=== PATIENT | male | born 1955 | race Two or more races ===

== ENCOUNTER 2019-07-19 10:24 | Inpatient (IN) | payer MEDICARE, OTHER ==
[~2019-07-19] VITALS: Ht 172.7 cm; Wt 95.5 kg
[~2019-07-19 10:24] MED LIST: COREG12.5 MG ORAL; FAMOTIDINE20 MG ORAL; NEPHROVITE1 TAB ORAL; NOVOLOG100 UNITS1 SUBQ
[2019-07-19 10:26] VITALS: BP 138/68
[2019-07-19] MEDS ORDERED: ASPIRIN81 MG ORAL (10:32)
[2019-07-19] MEDS ORDERED: DOCUSATE SODIU100 MG ORAL (10:32)
--- NOTE | 2019-07-19 10:34 | NUR ---
ED Nurse Note: Patient brought in by ambulance [facility] from [facility], patient missed dialysis yesterday 07/18/19, patient refused to go to dialysis center. patient is alert awake, his crutches at bedside, on NC 4L, right upper chest rachel cath for dialysis access. [place] [facility] [place]
[2019-07-19] MEDS ORDERED: HEPARIN SO5000 UNIT2 SUBQ (10:36)
[2019-07-19] MEDS ORDERED: NEPHROVITE1 TAB ORAL (10:36)
[2019-07-19] MEDS ORDERED: CATAPRES0.1 MG ORAL (10:39)
[2019-07-19] MEDS ORDERED: BENADRYL25 MG ORAL (10:39)
[2019-07-19] MEDS ORDERED: ZOFRAN ODT8 MG ORAL (10:39)
[2019-07-19] MEDS ORDERED: POLYETHYLENE GL17 GM ORAL (10:39)
[2019-07-19] MEDS ORDERED: EPOGEN3000 UNIT/ SUBQ (10:39)
--- NOTE | 2019-07-19 11:13 | NUR ---
ED Nurse Note: patient is a/o x3, blood sent to lab.
[2019-07-19 11:23] LABS: HEMATOCRIT 22.6 % (42.0-52.0); MEAN CORPUSCULAR VOLUME 98 FL (80-99); PLATELET COUNT 101 K/UL (150-450); RED CELL DISTRIBUTION WIDTH 18.9 % (11.6-14.8); WHITE BLOOD COUNT 5.4 K/UL (4.8-10.8)
[2019-07-19 11:38] LABS: ANION GAP 14 mmol/L (5-15); BLOOD UREA NITROGEN 111 mg/dL (7-18); CALCIUM 9.7 MG/DL (8.5-10.1); CARBON DIOXIDE 22 MMOL/L (21-32); CHLORIDE 102 MMOL/L (98-107); CREATININE 10.2 MG/DL (0.55-1.30); POTASSIUM 5.2 MMOL/L (3.5-5.1); SODIUM 138 MMOL/L (136-145)
[2019-07-19 11:43] LABS: ALANINE AMINOTRANSFERASE 102 U/L (12-78); ALBUMIN 2.9 G/DL (3.4-5.0); ALBUMIN/GLOBULIN RATIO 0.8 (1.0-2.7); ALKALINE PHOSPHATASE 308 U/L (46-116); ASPARTATE AMINO TRANSFERASE 49 U/L (15-37); BILIRUBIN,TOTAL 0.7 MG/DL (0.2-1.0)
--- NOTE | 2019-07-19 11:45 | Diagnostic Imaging Report ---
Indication: Dyspnea Comparison: 07/09/2019 A single view chest radiograph was obtained. Findings: Pulmonary vascular redistribution and interstitial edema demonstrated with cardiomegaly. There is a right permacath in good position. There is evidence of a right pleural effusion again demonstrated. Probable small left pleural effusion versus pleural thickening noted. IMPRESSION: Congestive heart failure. Suspected bilateral pleural effusions
--- NOTE | 2019-07-19 13:02 | Emergency Room Report ---
History of Present Illness General Chief Complaint: General Complaint Source: Patient, EMS Present Illness HPI Patient is a 63-year-old male brought in by basic ambulance after increased difficulty with breathing. Patient was noted to be normally dialyzed Tuesday and Tuesday but had missed dialysis yesterday. Patient was noted to be somewhat short of breath. Patient had refused dialysis apparently. patient is poorly cooperative and history is markedly limited by poor cooperation. Allergies: Coded Allergies: No Known Allergies (Unverified , 07/06/19) Patient History Past Medical History: see triage record Reviewed Nursing Documentation: PMH: Agreed; PSxH: Agreed Nursing Documentation-PMH Past Medical History: No History, Except For Hx Cardiac Problems: Yes - CHF, severe anemia Hx Hypertension: Yes Hx Diabetes: Yes Hx Cancer: No Hx Gastrointestinal Problems: Yes - GERD Hx Dialysis: Yes - (M, W, F) Hx Neurological Problems: No Review of Systems All Other Systems: limited Physical Exam Vital Signs Date Time Temp Pulse Resp B/P (MAP) Pulse Ox O2 Delivery O2 Flow Rate FiO2 07/19/19 10:26 98.6 66 16 138/68 99 Nasal Cannula 4.0 Sp02 EP Interpretation: reviewed, normal General Appearance: normal inspection, alert, Chronically Ill Head: atraumatic ENT: normal ENT inspection, hearing grossly normal, normal voice Neck: normal inspection, full range of motion, supple, no bony tend Respiratory: normal inspection, normal breath sounds, no respiratory distress, no retraction, no wheezing, crackles Cardiovascular #1: regular rate, rhythm, edema - trace Gastrointestinal: normal inspection, normal bowel sounds, non tender, soft, no guarding, no hernia Genitourinary: no CVA tenderness Musculoskeletal: normal inspection, back normal, normal range of motion Neurologic: normal inspection, alert, responsive, speech normal Psychiatric: normal inspection, judgement/insight normal, mood/affect normal Medical Decision Making Diagnostic Impression: Primary Impression: Hyperkalemia Additional Impressions: ESRD needing dialysis Pulmonary edema Pleural effusion, right ER Course Patient presented for missed dialysis. Differential diagnosis include was not limited to hyperkalemia, fluid overload, anemia among others. Because of complexity of patient's case laboratory tests and imaging studies were ordered. Patient was noted to have some history of dialysis noncompliance. Chest x- ray 1 view read by radiology showed bilateral small pleural effusions. Patient was also noted to have some hyperkalemia on laboratory testing as well as elevation of his BUN/creatinine. Patient was also anemic. This appears to be somewhat chronic. Dr. Geovany Roblero was contacted for inpatient management Laboratory Tests Test 07/19/19 11:07 White Blood Count 5.4 K/UL (4.8-10.8) Red Blood Count 2.30 M/UL (4.70-6.10) L Hemoglobin 7.0 G/DL (14.2-18.0) L Hematocrit 22.6 % (42.0-52.0) L Mean Corpuscular Volume 98 FL (80-99) Mean Corpuscular Hemoglobin 30.5 PG (27.0-31.0) Mean Corpuscular Hemoglobin Concent 31.1 G/DL (32.0-36.0) L Red Cell Distribution Width 18.9 % (11.6-14.8) H Platelet Count 101 K/UL (150-450) L Mean Platelet Volume 5.3 FL (6.5-10.1) L Neutrophils (%) (Auto) % (45.0-75.0) Lymphocytes (%) (Auto) % (20.0-45.0) Monocytes (%) (Auto) % (1.0-10.0) Eosinophils (%) (Auto) % (0.0-3.0) Basophils (%) (Auto) % (0.0-2.0) Differential Total Cells Counted 100 Neutrophils % (Manual) 57 % (45-75) Lymphocytes % (Manual) 17 % (20-45) L Monocytes % (Manual) 16 % (1-10) H Eosinophils % (Manual) 8 % (0-3) H Basophils % (Manual) 2 % (0-2) Band Neutrophils 0 % (0-8) Platelet Estimate Decreased L Platelet Morphology Normal Hypochromasia 3+ Anisocytosis 2+ Sodium Level 138 MMOL/L (136-145) Potassium Level 5.2 MMOL/L (3.5-5.1) H Chloride Level 102 MMOL/L (98-107) Carbon Dioxide Level 22 MMOL/L (21-32) Anion Gap 14 mmol/L (5-15) Blood Urea Nitrogen 111 mg/dL (7-18) H Creatinine 10.2 MG/DL (0.55-1.30) H Estimate Glomerular Filtration Rate 5.2 mL/min (>60) Glucose Level 125 MG/DL (74-106) H Calcium Level 9.7 MG/DL (8.5-10.1) Total Bilirubin 0.7 MG/DL (0.2-1.0) Aspartate Amino Transferase (AST) 49 U/L (15-37) H Alanine Aminotransferase (ALT) 102 U/L (12-78) H Alkaline Phosphatase 308 U/L (46-116) H Troponin I 0.201 ng/mL (0.000-0.056) Pro-B-Type Natriuretic Peptide > 52387 pg/mL (0-125) H Total Protein 6.6 G/DL (6.4-8.2) Albumin 2.9 G/DL (3.4-5.0) L Globulin 3.7 g/dL Albumin/Globulin Ratio 0.8 (1.0-2.7) L Lipase 129 U/L (73-393) Hemoglobin A1c Triglycerides Level Cholesterol Level LDL Cholesterol HDL Cholesterol Cholesterol/HDL Ratio Thyroid Stimulating Hormone (TSH) EKG Diagnostic Results Rate: normal Rhythm: NSR ST Segments: no acute changes Last Vital Signs Date Time Temp Pulse Resp B/P (MAP) Pulse Ox O2 Delivery O2 Flow Rate FiO2 07/19/19 11:09 66 16 Nasal Cannula 4.0 07/19/19 10:26 98.6 138/68 (91) 99 Status: unchanged Disposition: ADMITTED INPATIENT Condition: Serious Referrals: Geovany Roblero MD (PCP) Ino Loyola MD Jul 19, 2019 13:02
--- NOTE | 2019-07-19 13:06 | Consultation ---
History of Present Illness General Date patient seen: Jul 19, 2019 Chief Complaint: General Complaint Present Illness HPI 63 years old male with past medical history of end-stage renal disease, on hemodialysis, diabetes mellitus with gastroparesis and neuropathy, GERD, hypertension, noncompliance, was just sent to [facility] was brought in with CC of shortness of breath. He was refusing his HD at senior care facility. He is c/o skin rash as well. Allergies: Coded Allergies: No Known Allergies (Unverified , 07/06/19) Medication History Scheduled Aspirin* (Aspirin*), 81 MG ORAL DAILY, (Reported) Carvedilol (Coreg), 12.5 MG ORAL EVERY 12 HOURS Docusate Sodium* (Docusate Sodium*), 100 MG ORAL THREE TIMES A DAY, (Reported) Epoetin Garrett (Epogen), 3,000 UNIT SUBQ 3XW, (Reported) Famotidine (Famotidine), 20 MG ORAL DAILY Heparin Sod (Porcine) (Heparin Sodium*), 5,000 UNITS SUBQ EVERY 12 HOURS, ( Reported) Insulin Aspart (Novolog Flexpen), 0 UNITS SUBQ BEFORE MEALS AND HS Vitamin B Cmplx/Vit C/Folic AC (Nephro-Eduar Tablet), 1 TAB ORAL DAILY Vitamin B Cmplx/Vit C/Folic AC (Nephro-Eduar Tablet), 1 TAB ORAL DAILY, (Reported ) Scheduled PRN Clonidine Hcl* (Catapres*), 0.1 MG ORAL EVERY 4 HOURS PRN for For High Blood Pressure, (Reported) Diphenhydramine Hcl* (Benadryl*), 25 MG ORAL Q6H PRN for Itching, (Reported) Ondansetron Odt* (Zofran Odt*), 4 MG ORAL Q6H PRN for Nausea & Vomiting, ( Reported) Polyethylene Glycol 3350* (Polyethylene Glycol 3350*), 17 GM ORAL BEDTIME PRN for Constipation, (Reported) Patient History Healthcare decision maker Resuscitation status Advanced Directive on File Past Medical/Surgical History Past Medical/Surgical History: (1) ESRD needing dialysis (2) HTN (hypertension) (3) Pulmonary edema (4) Physical debility Review of Systems All Other Systems: negative except mentioned in HPI Physical Exam General Appearance: WD/WN Lines, tubes and drains: peripheral HEENT: normocephalic, atraumatic Neck: non-tender, normal alignment Respiratory/Chest: chest wall non-tender, lungs clear Breasts: no masses Cardiovascular/Chest: normal peripheral pulses Abdomen: normal bowel sounds Last 24 Hour Vital Signs Date Time Temp Pulse Resp B/P (MAP) Pulse Ox O2 Delivery O2 Flow Rate FiO2 07/19/19 11:09 66 16 Nasal Cannula 4.0 07/19/19 10:26 98.6 66 16 138/68 (91) 99 Room Air 07/19/19 10:26 98.6 66 16 138/68 99 Nasal Cannula 4.0 Laboratory Tests Test 07/19/19 11:07 White Blood Count 5.4 K/UL (4.8-10.8) Red Blood Count 2.30 M/UL (4.70-6.10) L Hemoglobin 7.0 G/DL (14.2-18.0) L Hematocrit 22.6 % (42.0-52.0) L Mean Corpuscular Volume 98 FL (80-99) Mean Corpuscular Hemoglobin 30.5 PG (27.0-31.0) Mean Corpuscular Hemoglobin Concent 31.1 G/DL (32.0-36.0) L Red Cell Distribution Width 18.9 % (11.6-14.8) H Platelet Count 101 K/UL (150-450) L Mean Platelet Volume 5.3 FL (6.5-10.1) L Neutrophils (%) (Auto) % (45.0-75.0) Lymphocytes (%) (Auto) % (20.0-45.0) Monocytes (%) (Auto) % (1.0-10.0) Eosinophils (%) (Auto) % (0.0-3.0) Basophils (%) (Auto) % (0.0-2.0) Differential Total Cells Counted 100 Neutrophils % (Manual) 57 % (45-75) Lymphocytes % (Manual) 17 % (20-45) L Monocytes % (Manual) 16 % (1-10) H Eosinophils % (Manual) 8 % (0-3) H Basophils % (Manual) 2 % (0-2) Band Neutrophils 0 % (0-8) Platelet Estimate Decreased L Platelet Morphology Normal Hypochromasia 3+ Anisocytosis 2+ Sodium Level 138 MMOL/L (136-145) Potassium Level 5.2 MMOL/L (3.5-5.1) H Chloride Level 102 MMOL/L (98-107) Carbon Dioxide Level 22 MMOL/L (21-32) Anion Gap 14 mmol/L (5-15) Blood Urea Nitrogen 111 mg/dL (7-18) H Creatinine 10.2 MG/DL (0.55-1.30) H Estimat Glomerular Filtration Rate 5.2 mL/min (>60) Glucose Level 125 MG/DL (74-106) H Calcium Level 9.7 MG/DL (8.5-10.1) Total Bilirubin 0.7 MG/DL (0.2-1.0) Aspartate Amino Transf (AST/SGOT) 49 U/L (15-37) H Alanine Aminotransferase (ALT/SGPT) 102 U/L (12-78) H Alkaline Phosphatase 308 U/L (46-116) H Troponin I 0.201 ng/mL (0.000-0.056) Total Protein 6.6 G/DL (6.4-8.2) Albumin 2.9 G/DL (3.4-5.0) L Globulin 3.7 g/dL Albumin/Globulin Ratio 0.8 (1.0-2.7) L Lipase 129 U/L (73-393) Height (Feet): 5 Height (Inches): 8.00 Weight (Pounds): 180 Medications Current Medications Medications (Trade) Dose Ordered Sig/Trav Route PRN Reason Start Time Stop Time Status Last Admin Dose Admin Aspirin (ASA) 81 mg DAILY ORAL 07/20/19 09:00 08/19/19 08:59 Carvedilol (Coreg) 12.5 mg EVERY 12 HOURS ORAL 07/19/19 21:00 08/18/19 20:59 Clonidine HCl (Catapres Tab) 0.1 mg EVERY 4 HOURS PRN ORAL For High Blood Pressure 07/19/19 13:15 08/18/19 13:14 UNV Famotidine (Pepcid) 20 mg DAILY ORAL 07/20/19 09:00 08/19/19 08:59 Vitamin B Complex/ Vit C/Folic Acid (Nephrovite) 1 tab DAILY ORAL 07/20/19 09:00 08/19/19 08:59 Assessment/Plan Problem List: (1) Pulmonary edema ICD Codes: J81.1 - Chronic pulmonary edema SNOMED: 76748846 (2) ESRD needing dialysis ICD Codes: N18.6 - End stage renal disease; Z99.2 - Dependence on renal dialysis SNOMED: 44043844 (3) Pleural effusion, right ICD Codes: J90 - Pleural effusion, not elsewhere classified SNOMED: 90871992 (4) Noncompliance with renal dialysis ICD Codes: Z91.15 - Patient's noncompliance with renal dialysis SNOMED: 602341037775611 (5) Hyperkalemia ICD Codes: E87.5 - Hyperkalemia SNOMED: 54711559 (6) Anemia ICD Codes: D64.9 - Anemia, unspecified SNOMED: 467569180 (7) Diabetes mellitus ICD Codes: E11.9 - Type 2 diabetes mellitus without complications SNOMED: 78033617 (8) HTN (hypertension) ICD Codes: I10 - Essential (primary) hypertension SNOMED: 64926106 (9) Physical debility ICD Codes: R53.81 - Other malaise SNOMED: 17824263 Assessment/Plan: HD by nephrology sliding scale symptomatic treatment pt.ot resume medication Christy Mercer MD Jul 19, 2019 13:06
[2019-07-19] MEDS ORDERED: Morphine Sulfate 2mg/ml Inj(IV/IM USE ONLY) IVP PRN (13:15)
[2019-07-19] MEDS ORDERED: Miralax 17gm pkt ORAL PRN (13:15)
[2019-07-19] MEDS ORDERED: Zolpidem 5mg tab ORAL PRN (13:15)
--- NOTE | 2019-07-19 13:24 | NUR ---
HAND-OFF: Report given to Dina HARDY. Endorsed all plan of care to Dina HARDY
[2019-07-19 13:27] VITALS: BP 132/62
--- NOTE | 2019-07-19 13:30 | NUR ---
ED Nurse Note: patient transferred to 2E with all of his belongings. endorsed to Herminia HARDY.
--- NOTE | 2019-07-19 16:00 | NUR ---
NURSE NOTES: Received patient from Gianna Bacon. patient is AAOx3. admitted from ER. transported via [place]. patient transfered to bed without difficulty. oriented to room. Safety precautions in place. siderailsX2 up bed locked to lowest position, call banks within patients reached. O2 at 2l/min via nasal cannula.VSS. no c/o pain or discomfort. Will follow.
--- NOTE | 2019-07-19 17:07 | History & Physical ---
History and Physical History & Physicial Dictated for Int Med- Dr Roblero no. [id number]. Kuldip Crisostomo MD Jul 19, 2019 17:07
--- NOTE | 2019-07-19 18:00 | NUR ---
NURSE NOTES: Call placed to Dr. Hutson regarding labs lesults. as per Dr. Mercer. Message left. awaiting callback. will follow.
[2019-07-19] MEDS: NovoLOG Insulin Flexpen SUBQ SCH ×2 (18:06→20:57)
--- NOTE | 2019-07-19 19:56 | NUR ---
HAND-OFF: Report given to Cailin Katz, aware awiting callback from Dr. Hutson.Plan of care endorsed.
--- NOTE | 2019-07-19 19:57 | NUR ---
NURSE NOTES: Received report from ANTONY Hill. Patient is awake, lying in semi purdy's; resting comfortably. A/Ox3-4. Denies pain at this time. No signs of acute cardiorespiratory distress noted. On Oxygen via NC @ 2 LPM. No or SOB noted. Permcath located at the right chest for hemodialysis and intact. Checked IV site and flushed. No erythema, bleeding or infiltration noted. Bed at lowest position, brakes on, siderails x3. Call light within reach. Will continue to monitor.
[2019-07-19 20:00] VITALS: BP 125/65
--- NOTE | 2019-07-19 20:15 | NUR ---
NURSE NOTES: Per Dr. Cota, no hemodialysis for tonight.
--- NOTE | 2019-07-19 20:20 | Cardiology Progress Note ---
Assessment/Plan Assessment/Plan misssdialysis sob chf Objective Last 24 Hour Vital Signs Date Time Temp Pulse Resp B/P (MAP) Pulse Ox O2 Delivery O2 Flow Rate FiO2 07/19/19 18:56 98.6 07/19/19 16:00 61 07/19/19 14:45 Nasal Cannula 2.0 07/19/19 13:45 60 07/19/19 13:30 98.6 62 16 132/62 99 Nasal Cannula 4.0 07/19/19 13:27 98.6 62 16 132/62 99 Nasal Cannula 4.0 07/19/19 11:09 66 16 Nasal Cannula 4.0 07/19/19 10:26 98.6 66 16 138/68 (91) 99 Room Air 07/19/19 10:26 98.6 66 16 138/68 99 Nasal Cannula 4.0 Laboratory Tests Test 07/19/19 11:07 White Blood Count 5.4 K/UL (4.8-10.8) Red Blood Count 2.30 M/UL (4.70-6.10) L Hemoglobin 7.0 G/DL (14.2-18.0) L Hematocrit 22.6 % (42.0-52.0) L Mean Corpuscular Volume 98 FL (80-99) Mean Corpuscular Hemoglobin 30.5 PG (27.0-31.0) Mean Corpuscular Hemoglobin Concent 31.1 G/DL (32.0-36.0) L Red Cell Distribution Width 18.9 % (11.6-14.8) H Platelet Count 101 K/UL (150-450) L Mean Platelet Volume 5.3 FL (6.5-10.1) L Neutrophils (%) (Auto) % (45.0-75.0) Lymphocytes (%) (Auto) % (20.0-45.0) Monocytes (%) (Auto) % (1.0-10.0) Eosinophils (%) (Auto) % (0.0-3.0) Basophils (%) (Auto) % (0.0-2.0) Differential Total Cells Counted 100 Neutrophils % (Manual) 57 % (45-75) Lymphocytes % (Manual) 17 % (20-45) L Monocytes % (Manual) 16 % (1-10) H Eosinophils % (Manual) 8 % (0-3) H Basophils % (Manual) 2 % (0-2) Band Neutrophils 0 % (0-8) Platelet Estimate Decreased L Platelet Morphology Normal Hypochromasia 3+ Anisocytosis 2+ Sodium Level 138 MMOL/L (136-145) Potassium Level 5.2 MMOL/L (3.5-5.1) H Chloride Level 102 MMOL/L (98-107) Carbon Dioxide Level 22 MMOL/L (21-32) Anion Gap 14 mmol/L (5-15) Blood Urea Nitrogen 111 mg/dL (7-18) H Creatinine 10.2 MG/DL (0.55-1.30) H Estimat Glomerular Filtration Rate 5.2 mL/min (>60) Glucose Level 125 MG/DL (74-106) H Calcium Level 9.7 MG/DL (8.5-10.1) Total Bilirubin 0.7 MG/DL (0.2-1.0) Aspartate Amino Transf (AST/SGOT) 49 U/L (15-37) H Alanine Aminotransferase (ALT/SGPT) 102 U/L (12-78) H Alkaline Phosphatase 308 U/L (46-116) H Troponin I 0.201 ng/mL (0.000-0.056) Pro-B-Type Natriuretic Peptide > 33221 pg/mL (0-125) H Total Protein 6.6 G/DL (6.4-8.2) Albumin 2.9 G/DL (3.4-5.0) L Globulin 3.7 g/dL Albumin/Globulin Ratio 0.8 (1.0-2.7) L Lipase 129 U/L (73-393) Microbiology Date/Time Source Procedure Growth Status 07/19/19 13:02 Rectum Received Nikko Resendiz MD Jul 19, 2019 20:20
--- NOTE | 2019-07-19 20:30 | History and Physical Report ---
DATE OF ADMISSION: 07/19/2019 CHIEF COMPLAINT: The patient is a 63-year-old male, who presents with a chief complaint of shortness of breath. HISTORY OF PRESENT ILLNESS: The patient was admitted to [facility] from July 06, 2019 to July 17, 2019. The patient has been noncompliant with his hemodialysis at that time. The patient is admitted with acute exacerbation of congestive heart failure secondary to volume overload. Please see history and physical and discharge summary dictated at that time. The patient is a resident of [facility]. The patient missed his dialysis on Thursday, July 18, 2019 for unknown reasons. The patient then began to experience shortness of breath. The patient was transferred to [facility]. The patient is admitted for dyspnea secondary to volume overload secondary to missed dialysis. REVIEW OF SYSTEMS: CONSTITUTIONAL: The patient denies weight loss or weight gain. The patient denies fevers or chills. HEENT: The patient denies ear or throat pain. The patient denies headache. CARDIOVASCULAR: The patient denies palpitation or chest pain. CHEST: The patient denies wheeze or shortness of breath. CHEST: The patient complains of shortness of breath as above. The patient denies wheezes. ABDOMEN: The patient denies nausea, vomiting, diarrhea, or constipation. GENITOURINARY: The patient denies dysuria or increased frequency of urination. NEUROMUSCULAR: The patient denies seizures or generalized weakness. PAST MEDICAL HISTORY: Significant for: 1. Congestive heart failure as above. 2. End-stage renal disease. 3. Diabetes type 2. 4. Diabetic gastroparesis. 5. Diabetic neuropathy. 6. Gastroesophageal reflux disease. 7. Hypertension. 8. Jzepwbfe-fi-noaqiw mitral valve regurgitation. 9. Fcwxguzz-dr-ebegkx tricuspid regurgitation. 10. Pulmonary hypertension. 11. Anemia of chronic renal disease. PAST SURGICAL HISTORY: Significant for hemodialysis catheter placement. CURRENT MEDICATIONS: 1. Aspirin 81 mg one tablet p.o. daily. 2. Carvedilol 12.5 mg p.o. twice daily. 3. Clonidine 0.1 mg p.o. q.4 hours p.r.n. 4. Erythropoietin 3000 units subcutaneously 3 times weekly. 5. Pepcid 20 mg p.o. daily. 6. Insulin NovoLog sliding scale. 7. Zofran 4 mg p.o. q.6 hours p.r.n. 8. MiraLAX 17 g p.o. at bedtime p.r.n. 9. Vitamin B complex. ALLERGIES: No known drug allergies. SOCIAL HISTORY: The patient is and is currently a resident of [facility]. The patient denies tobacco or alcohol use. PHYSICAL EXAMINATION: VITAL SIGNS: Temperature 98.6, respirations 16, pulse 66, and blood pressure 138/60. GENERAL: The patient is a well-developed and well-nourished male, in no apparent distress. HEENT: Eyes, pupils are equal and responsive to light and accommodation. Extraocular movements are intact. NECK: Supple without lymphadenopathy. CHEST: Lungs are clear to auscultation bilaterally without wheezes or rales. CARDIOVASCULAR: Regular rhythm and rate. S1 and S2 are normal without murmurs, rubs, or gallops. ABDOMEN: Soft, nontender, and nondistended. Positive bowel sounds. No evidence of hepatosplenomegaly. Currently, no rebound or guarding noted. EXTREMITIES: Negative for clubbing, cyanosis, or edema. RECTAL/GENITAL: Refused. NEUROLOGIC: Cranial nerves II through XII are grossly intact without focal deficits. Motor strength is 5/5 bilaterally. Deep tendon reflexes are 2+ plantar. LABORATORY STUDIES: WBC 5.4, hemoglobin 7.0, hematocrit 22.6, and platelets 101,000. Sodium 138, potassium 5.2, chloride 102, CO2 22, BUN 111, creatinine 10.2, and glucose 125. AST 49, ALT 102, and alkaline phosphatase 308,000. Troponin 0.2. A BNP is pending. Chest x-ray revealed pulmonary vascular redistribution and interstitial edema consistent with congestive heart failure. ASSESSMENT: This is a 63-year-old male. 1. Dyspnea. 2. Congestive heart failure. 3. End-stage renal disease. 4. Diabetes type 2. 5. Diabetic gastroparesis. 6. Diabetic neuropathy. 7. Gastroesophageal reflux disease. 8. Hypertension. 9. Tdncqskd-en-cgnygp mitral valve regurgitation. 10. Qcmsfmzh-hs-yvabzo tricuspid valve regurgitation. 11. Pulmonary hypertension. 12. Anemia of chronic renal disease. TREATMENT: 1. Dyspnea. A Pulmonary consultation has been obtained with Dr. Christy Mercer. We will follow recommendations of Pulmonary. Dyspnea is probably secondary to volume overload. We will follow recommendations of Pulmonary. 2. Congestive heart failure. This is probably secondary to volume overload. A Cardiology consultation is pending with Dr. Nikko Resendiz. Serial troponin levels will be performed. Serial BNPs will be performed. 3. Diabetes type 2. NovoLog sliding scale has been instituted. 4. Diabetic gastroparesis. 5. Diabetic neuropathy. 6. Gastroesophageal reflux disease. Continue Pepcid as above. 7. Hypertension. Continue clonidine and carvedilol as above. 8. Prfwcihh-vz-vvwyye mitral valve regurgitation. 9. Vtxevwzp-pq-mjlqbb tricuspid valve regurgitation. 10. Pulmonary hypertension. 11. Anemia of chronic renal disease. Kuldip Crisostomo M.D. DR: GRACE JOB#: [id number] CC:
[2019-07-19] MEDS: Carvedilol 12.5mg tab ORAL SCH (20:55)
[2019-07-19] MEDS: Heparin 5000 units/ml inj SUBQ SCH (20:58)
[2019-07-20] VITALS: BP 130/76
--- NOTE | 2019-07-20 03:22 | NUR ---
NURSE NOTES: Resting throughout the night. No significant change of condition noted. Will continue to monitor.
--- NOTE | 2019-07-20 03:30 | NUR ---
NURSE NOTES: Called [facility] and spoked with Martha, to schedule for hemodialysis 07/20/2019. Awaiting for callback.
[2019-07-20 04:00] VITALS: BP 133/81
[2019-07-20] MEDS: NovoLOG Insulin Flexpen SUBQ SCH ×4 (06:19→21:15)
[2019-07-20 07:16] LABS: HEMATOCRIT 24.3 % (42.0-52.0); HEMOGLOBIN 7.7 G/DL (14.2-18.0); MEAN CORPUSCULAR VOLUME 98 FL (80-99); PLATELET COUNT 113 K/UL (150-450); RED BLOOD COUNT 2.48 M/UL (4.70-6.10); WHITE BLOOD COUNT 5.5 K/UL (4.8-10.8)
[2019-07-20 07:23] LABS: ALANINE AMINOTRANSFERASE 106 U/L (12-78); ALBUMIN 3.1 G/DL (3.4-5.0); ALBUMIN/GLOBULIN RATIO 0.8 (1.0-2.7); ALKALINE PHOSPHATASE 336 U/L (46-116); ANION GAP 15 mmol/L (5-15); ASPARTATE AMINO TRANSFERASE 56 U/L (15-37); BILIRUBIN,TOTAL 0.7 MG/DL (0.2-1.0); BLOOD UREA NITROGEN 117 mg/dL (7-18); CARBON DIOXIDE 22 MMOL/L (21-32); CHLORIDE 101 MMOL/L (98-107); CHOLESTEROL 138 MG/DL (< 200); CREATININE 10.6 MG/DL (0.55-1.30); HDL CHOLESTEROL 62 MG/DL (40-60); POTASSIUM 5.7 MMOL/L (3.5-5.1); SODIUM 138 MMOL/L (136-145); TRIGLYCERIDES 46 MG/DL (30-150)
--- NOTE | 2019-07-20 07:25 | NUR ---
HAND-OFF: Report given to ANTONY Hill. Plan of care endorsed.
--- NOTE | 2019-07-20 07:27 | NUR ---
NURSE NOTES: Received patient From Gianna Simeon. patient is awake lying comfortably in bed. Denies pain or discomfort. Reminded patient of safety precautions. side rails X2 up for safety, bed locked to lowest position. bed alarm activated. call banks within patients reached. patient for HD this morning as per Dr. Hutson's order. Will anticipate needs and continue to monitor patient throughout this shift.
[2019-07-20 08:00] VITALS: BP 142/77
[2019-07-20] MEDS: Nephrovite tab (Rena-Vite) ORAL SCH (08:45)
[2019-07-20] MEDS: Aspirin Baby 81mg ORAL SCH (08:46)
[2019-07-20] MEDS: Heparin Sod 1000 units/ml 10ml IV ONE (08:53)
[2019-07-20] MEDS: Carvedilol 12.5mg tab ORAL SCH ×2 (08:53→21:14)
[2019-07-20] MEDS: Heparin 5000 units/ml inj SUBQ SCH ×2 (08:59→21:00)
--- NOTE | 2019-07-20 11:00 | NUR ---
Received order for discharge from Dr. Workman. Medications faxed to [place] [facility] and delivered to floor. Pts sister notified re: discharge. 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 will follow. Addendum: 07/20/19 at 1143 by Liz Wall RN Wrong patient. please ignore documentation above.
--- NOTE | 2019-07-20 11:56 | Pulmonology Progress Note ---
Assessment/Plan Problems: (1) Pulmonary edema (2) ESRD needing dialysis (3) Pleural effusion, right (4) Noncompliance with renal dialysis (5) Hyperkalemia (6) Anemia (7) Diabetes mellitus (8) HTN (hypertension) (9) Physical debility Assessment/Plan HD by nephrology sliding scale symptomatic treatment pt.ot resume medication add Ivermectin and Elimite Subjective ROS Limited/Unobtainable: No Constitutional: Reports: no symptoms HEENT: Repors: no symptoms Allergies: Coded Allergies: No Known Allergies (Unverified , 07/06/19) Objective Last 24 Hour Vital Signs Date Time Temp Pulse Resp B/P (MAP) Pulse Ox O2 Delivery O2 Flow Rate FiO2 07/20/19 09:00 Nasal Cannula 2.0 07/20/19 08:53 66 142/77 07/20/19 08:00 98.3 66 24 142/77 (98) 97 07/20/19 08:00 65 07/20/19 07:45 98 Nasal Cannula 2.0 28 07/20/19 07:45 66 20 98 Nasal Cannula 2.0 28 07/20/19 04:00 96.9 61 18 133/81 (98) 98 07/20/19 04:00 63 07/20/19 00:00 97.2 78 18 130/76 (94) 96 07/20/19 00:00 56 07/19/19 21:00 Nasal Cannula 2.0 07/19/19 21:00 Nasal Cannula 2.0 07/19/19 20:55 64 125/65 07/19/19 20:00 97.9 64 20 125/65 (85) 95 07/19/19 20:00 61 07/19/19 18:56 98.6 07/19/19 16:00 61 07/19/19 14:45 Nasal Cannula 2.0 07/19/19 13:45 60 07/19/19 13:30 98.6 62 16 132/62 99 Nasal Cannula 4.0 07/19/19 13:27 98.6 62 16 132/62 99 Nasal Cannula 4.0 Intake and Output 07/19/19 07/20/19 18:59 06:59 Intake Total 60 ml Output Total 0 ml Balance 0 ml 60 ml Intake Oral 60 ml Output Urine Total 0 ml # Voids 1 # Bowel Movements 1 3 General Appearance: WD/WN HEENT: normocephalic, atraumatic Respiratory/Chest: chest wall non-tender, lungs clear Cardiovascular: normal peripheral pulses, normal rate Abdomen: normal bowel sounds, soft, non tender, no organomegaly Genitourinary: normal external genitalia Neurologic/Psychiatric: elder assistant II-XII grossly normal Microbiology Date/Time Source Procedure Growth Status 07/19/19 13:02 Rectum Received Laboratory Tests 07/20/19 05:45: White Blood Count 5.5, Red Blood Count 2.48L, Hemoglobin 7.7L, Hematocrit 24.3L , Mean Corpuscular Volume 98, Mean Corpuscular Hemoglobin 31.2H, Mean Corpuscular Hemoglobin Concent 31.8L, Red Cell Distribution Width 17.0H, Platelet Count 113L, Mean Platelet Volume 5.7L, Neutrophils (%) (Auto) , Lymphocytes (%) (Auto) , Monocytes (%) (Auto) , Eosinophils (%) (Auto) , Basophils (%) (Auto) , Differential Total Cells Counted 100, Neutrophils % ( Manual) 49, Lymphocytes % (Manual) 32, Monocytes % (Manual) 6, Eosinophils % ( Manual) 13H, Basophils % (Manual) 0, Band Neutrophils 0, Platelet Estimate DecreasedL, Platelet Morphology Normal, Hypochromasia 1+, Anisocytosis 1+, Sodium Level 138, Potassium Level 5.7H, Chloride Level 101, Carbon Dioxide Level 22, Anion Gap 15, Blood Urea Nitrogen 117H, Creatinine 10.6H, Estimat Glomerular Filtration Rate 5.0, Glucose Level 136H, Hemoglobin A1c 5.1, Calcium Level 10.0, Total Bilirubin 0.7, Aspartate Amino Transf (AST/SGOT) 56H, Alanine Aminotransferase (ALT/SGPT) 106H, Alkaline Phosphatase 336H, Troponin I 0.149H, Pro-B-Type Natriuretic Peptide 705H, Total Protein 7.1, Albumin 3.1L, Globulin 4.0, Albumin/Globulin Ratio 0.8L, Triglycerides Level 46, Cholesterol Level 138 , LDL Cholesterol 59, HDL Cholesterol 62H, Cholesterol/HDL Ratio 2.2L, Thyroid Stimulating Hormone (TSH) 3.499 Current Medications Medications (Trade) Dose Ordered Sig/Trav Route PRN Reason Start Time Stop Time Status Last Admin Dose Admin Acetaminophen (Tylenol) 650 mg Q4H PRN ORAL fever 07/19/19 13:15 08/18/19 13:14 07/19/19 18:26 Albuterol/ Ipratropium (Albuterol/ Ipratropium) 3 ml Q6HRT PRN HHN dyspnea 07/19/19 13:15 07/24/19 13:14 Aspirin (ASA) 81 mg DAILY ORAL 07/20/19 09:00 08/19/19 08:59 07/20/19 08:46 Carvedilol (Coreg) 12.5 mg EVERY 12 HOURS ORAL 07/19/19 21:00 08/18/19 20:59 07/19/19 20:55 Clonidine HCl (Catapres Tab) 0.1 mg Q4H PRN ORAL SBP>160 07/19/19 13:15 08/18/19 13:14 Dextrose (Dextrose 50%) 25 ml Q30M PRN IV Hypoglycemia 07/19/19 13:15 08/18/19 13:14 Dextrose (Dextrose 50%) 50 ml Q30M PRN IV Hypoglycemia 07/19/19 13:15 08/18/19 13:14 Famotidine (Pepcid) 20 mg DAILY ORAL 07/20/19 09:00 08/19/19 08:59 07/20/19 08:46 Furosemide (Lasix) 100 mg Q8H PRN IV dyspnea 07/19/19 13:15 08/18/19 13:14 Heparin Sodium (Porcine) (Heparin 5000 units/ml) 5,000 units EVERY 12 HOURS SUBQ 07/19/19 21:00 08/18/19 20:59 Heparin Sodium (Porcine) (Heparin Sod 1000 units/ml 10ml) 2,000 unit ONCE ONCE IV 07/21/19 00:45 07/21/19 00:46 Heparin Sodium (Porcine) (Heparin) 1,000 unit POSTHD INJ 07/21/19 09:00 08/20/19 08:59 Insulin Aspart (NovoLOG) BEFORE MEALS AND HS SUBQ 07/19/19 16:30 08/18/19 16:29 07/20/19 06:19 Ivermectin (Stromectol) 15 mg ONCE ONCE ORAL 07/20/19 11:30 07/20/19 11:31 UNV Morphine Sulfate (Morphine Sulfate) 1 mg Q4H PRN IVP For Pain 07/19/19 13:15 07/26/19 13:14 Ondansetron HCl (Zofran) 4 mg Q6H PRN IVP Nausea & Vomiting 07/19/19 13:15 08/18/19 13:14 Permethrin (Elimite) 1 applic ONCE ONCE TOPIC 07/20/19 11:30 07/20/19 11:31 UNV Permethrin (Elimite) 1 applic ONCE ONCE TOPIC 07/20/19 11:30 07/20/19 11:31 UNV Polyethylene Glycol (Miralax) 17 gm HSPRN PRN ORAL Constipation 07/19/19 13:15 08/18/19 13:14 Sodium Chloride 1,000 ml @ 500 mls/hr Q2H PRN IVLG sbp<90 during hd 07/21/19 00:45 08/20/19 00:44 Vitamin B Complex/ Vit C/Folic Acid (Nephrovite) 1 tab DAILY ORAL 07/20/19 09:00 08/19/19 08:59 07/20/19 08:45 Zolpidem Tartrate (Ambien) 5 mg HSPRN PRN ORAL Insomnia 07/19/19 13:15 07/26/19 13:14 Christy Mercer MD Jul 20, 2019 11:56
--- NOTE | 2019-07-20 11:59 | Internal Med Progress Note ---
Subjective Physician Name Geovany Roblero Attending Physician Geovany Roblero MD Current Medications Medications (Trade) Dose Ordered Sig/Trav Route PRN Reason Start Time Stop Time Status Last Admin Dose Admin Acetaminophen (Tylenol) 650 mg Q4H PRN ORAL fever 07/19/19 13:15 08/18/19 13:14 07/19/19 18:26 Albuterol/ Ipratropium (Albuterol/ Ipratropium) 3 ml Q6HRT PRN HHN dyspnea 07/19/19 13:15 07/24/19 13:14 Aspirin (ASA) 81 mg DAILY ORAL 07/20/19 09:00 08/19/19 08:59 07/20/19 08:46 Carvedilol (Coreg) 12.5 mg EVERY 12 HOURS ORAL 07/19/19 21:00 08/18/19 20:59 07/19/19 20:55 Clonidine HCl (Catapres Tab) 0.1 mg Q4H PRN ORAL SBP>160 07/19/19 13:15 08/18/19 13:14 Dextrose (Dextrose 50%) 25 ml Q30M PRN IV Hypoglycemia 07/19/19 13:15 08/18/19 13:14 Dextrose (Dextrose 50%) 50 ml Q30M PRN IV Hypoglycemia 07/19/19 13:15 08/18/19 13:14 Famotidine (Pepcid) 20 mg DAILY ORAL 07/20/19 09:00 08/19/19 08:59 07/20/19 08:46 Furosemide (Lasix) 100 mg Q8H PRN IV dyspnea 07/19/19 13:15 08/18/19 13:14 Heparin Sodium (Porcine) (Heparin 5000 units/ml) 5,000 units EVERY 12 HOURS SUBQ 07/19/19 21:00 08/18/19 20:59 Heparin Sodium (Porcine) (Heparin Sod 1000 units/ml 10ml) 2,000 unit ONCE ONCE IV 07/21/19 00:45 07/21/19 00:46 Heparin Sodium (Porcine) (Heparin) 1,000 unit POSTHD INJ 07/21/19 09:00 08/20/19 08:59 Insulin Aspart (NovoLOG) BEFORE MEALS AND HS SUBQ 07/19/19 16:30 08/18/19 16:29 07/20/19 06:19 Ivermectin (Stromectol) 15 mg ONCE ONCE ORAL 07/20/19 11:30 07/20/19 11:31 UNV Morphine Sulfate (Morphine Sulfate) 1 mg Q4H PRN IVP For Pain 07/19/19 13:15 07/26/19 13:14 Ondansetron HCl (Zofran) 4 mg Q6H PRN IVP Nausea & Vomiting 07/19/19 13:15 08/18/19 13:14 Permethrin (Elimite) 1 applic ONCE ONCE TOPIC 07/20/19 11:30 07/20/19 11:31 UNV Permethrin (Elimite) 1 applic ONCE ONCE TOPIC 07/20/19 11:30 07/20/19 11:31 UNV Polyethylene Glycol (Miralax) 17 gm HSPRN PRN ORAL Constipation 07/19/19 13:15 08/18/19 13:14 Sodium Chloride 1,000 ml @ 500 mls/hr Q2H PRN IVLG sbp<90 during hd 07/21/19 00:45 08/20/19 00:44 Vitamin B Complex/ Vit C/Folic Acid (Nephrovite) 1 tab DAILY ORAL 07/20/19 09:00 08/19/19 08:59 07/20/19 08:45 Zolpidem Tartrate (Ambien) 5 mg HSPRN PRN ORAL Insomnia 07/19/19 13:15 07/26/19 13:14 Allergies: Coded Allergies: No Known Allergies (Unverified , 07/06/19) Subjective awake, alert, responsive, less SOB, No chest pain , C/O rash and generalized body itching Objective Last Vital Signs Date Time Temp Pulse Resp B/P (MAP) Pulse Ox O2 Delivery O2 Flow Rate FiO2 07/20/19 09:00 Nasal Cannula 2.0 07/20/19 08:53 66 142/77 07/20/19 08:00 98.3 24 97 07/20/19 07:45 28 Laboratory Tests Test 07/20/19 05:45 White Blood Count 5.5 K/UL (4.8-10.8) Red Blood Count 2.48 M/UL (4.70-6.10) L Hemoglobin 7.7 G/DL (14.2-18.0) L Hematocrit 24.3 % (42.0-52.0) L Mean Corpuscular Volume 98 FL (80-99) Mean Corpuscular Hemoglobin 31.2 PG (27.0-31.0) H Mean Corpuscular Hemoglobin Concent 31.8 G/DL (32.0-36.0) L Red Cell Distribution Width 17.0 % (11.6-14.8) H Platelet Count 113 K/UL (150-450) L Mean Platelet Volume 5.7 FL (6.5-10.1) L Neutrophils (%) (Auto) % (45.0-75.0) Lymphocytes (%) (Auto) % (20.0-45.0) Monocytes (%) (Auto) % (1.0-10.0) Eosinophils (%) (Auto) % (0.0-3.0) Basophils (%) (Auto) % (0.0-2.0) Differential Total Cells Counted 100 Neutrophils % (Manual) 49 % (45-75) Lymphocytes % (Manual) 32 % (20-45) Monocytes % (Manual) 6 % (1-10) Eosinophils % (Manual) 13 % (0-3) H Basophils % (Manual) 0 % (0-2) Band Neutrophils 0 % (0-8) Platelet Estimate Decreased L Platelet Morphology Normal Hypochromasia 1+ Anisocytosis 1+ Sodium Level 138 MMOL/L (136-145) Potassium Level 5.7 MMOL/L (3.5-5.1) H Chloride Level 101 MMOL/L (98-107) Carbon Dioxide Level 22 MMOL/L (21-32) Anion Gap 15 mmol/L (5-15) Blood Urea Nitrogen 117 mg/dL (7-18) H Creatinine 10.6 MG/DL (0.55-1.30) H Estimat Glomerular Filtration Rate 5.0 mL/min (>60) Glucose Level 136 MG/DL (74-106) H Hemoglobin A1c 5.1 % (4.3-6.0) Calcium Level 10.0 MG/DL (8.5-10.1) Total Bilirubin 0.7 MG/DL (0.2-1.0) Aspartate Amino Transf (AST/SGOT) 56 U/L (15-37) H Alanine Aminotransferase (ALT/SGPT) 106 U/L (12-78) H Alkaline Phosphatase 336 U/L (46-116) H Troponin I 0.149 ng/mL (0.000-0.056) Pro-B-Type Natriuretic Peptide 705 pg/mL (0-125) H Total Protein 7.1 G/DL (6.4-8.2) Albumin 3.1 G/DL (3.4-5.0) L Globulin 4.0 g/dL Albumin/Globulin Ratio 0.8 (1.0-2.7) L Triglycerides Level 46 MG/DL (30-150) Cholesterol Level 138 MG/DL (< 200) LDL Cholesterol 59 mg/dL (<100) HDL Cholesterol 62 MG/DL (40-60) H Cholesterol/HDL Ratio 2.2 (3.3-4.4) L Thyroid Stimulating Hormone (TSH) 3.499 uiU/mL (0.358-3.740) Microbiology Date/Time Source Procedure Growth Status 07/19/19 13:02 Rectum Received Intake and Output 07/19/19 07/20/19 18:59 06:59 Intake Total 60 ml Output Total 0 ml Balance 0 ml 60 ml Intake Oral 60 ml Output Urine Total 0 ml # Voids 1 # Bowel Movements 1 3 Objective General: No acute distress, awake and alert HEENT: NCAT, sclera anicteric, PERRL, EOMI. Neck: Supple, no significant jugular venous distention, Lungs: Fair inspiratory effort, decrease breath sound on bases, no Wheeze or Rales. Chest Wall: Dialysis cath on Right chest wall. Heart: Regular rate and rhythm, normal S1/S2, no murmur. Abdomen: soft, nontender, nondistended. Normoactive bowel sounds. / Rectal: Refused and deferred. Extremities: No Cyanosis , clubbing or edema. Neuro: A&O x 3, Able to move all extremities Skin: warm, generalized dry skin with rash. Psych: Normal mood and affect Assessment/Plan Assessment/Plan 1. Dyspnea most likely due to fluid overload. 2. Congestive heart failure. 3. End-stage renal disease on hemodialysis. 4. Diabetes type 2. 5. Diabetic gastroparesis. 6. Diabetic neuropathy. 7. Gastroesophageal reflux disease. 8. Hypertension. 9. Yoclgynf-bq-bksqql mitral valve regurgitation. 10. Mfuehyom-ir-aemqxq tricuspid valve regurgitation. 11. Pulmonary hypertension. 12. Anemia of chronic renal disease. 13. rash possible scabies. TREATMENT: 1. Dyspnea. A Pulmonary consultation has been obtained with Dr. Christy Mercer. We will follow recommendations of Pulmonary. Dyspnea is probably secondary to volume overload. We will follow recommendations of Pulmonary. 2. Congestive heart failure. This is probably secondary to volume overload. A Cardiology consultation is pending with Dr. Nikko Resendiz. Serial troponin levels will be performed. Serial BNPs will be performed. 3. Diabetes type 2. NovoLog sliding scale has been instituted. 4. Diabetic gastroparesis. 5. Diabetic neuropathy. 6. Gastroesophageal reflux disease. Continue Pepcid as above. 7. Hypertension. Continue clonidine and carvedilol as above. 8. Onnvzjuy-ma-zoruzi mitral valve regurgitation. 9. Fdrrtztp-zx-cnbjfn tricuspid valve regurgitation. 10. Pulmonary hypertension. 11. Anemia of chronic renal disease. Hemodialysis at bedside now. start Elimite shampoo monitor labs. Geovany Roblero MD Jul 20, 2019 11:59
[2019-07-20 12:00] VITALS: BP 148/69
--- NOTE | 2019-07-20 12:01 | Consultation ---
Consult Note Assessment/Plan Renal consult dictated # [id number] Justin Hutson MD Jul 20, 2019 12:01
--- NOTE | 2019-07-20 13:03 | NUR ---
NURSE NOTES: Patient s/p HD 3L out. Patient tolerated dialys. VSS. will follow.
--- NOTE | 2019-07-20 14:00 | NUR ---
NURSE NOTES: Patient complaining of itching noted with multiple rows of pimple like rashes. seen and examined by Dr. Mercer and Dr. Roblero. Patient diagnose with scabies. patient placed on isolation precautions. Isomite cream applied as ordered by MD. will monitor patient.
--- NOTE | 2019-07-20 16:00 | Consultation ---
DATE OF CONSULTATION: 07/20/2019 NEPHROLOGY CONSULTATION CONSULTING PHYSICIAN: Justin Hutson M.D. REFERRING PHYSICIAN: Geovany Roblero M.D. and Kuldip Crisostomo M.D. REASON FOR CONSULTATION: End-stage renal disease, requiring hemodialysis. HISTORY OF PRESENT ILLNESS: This is a 63-year-old, male, who is known to me from a recent admission to [facility]. The patient was admitted then for fluid overload. He had missed dialysis. He was placed on a custodial facility and arrangement was made to be dialyzed at [facility], however, last Tuesday he did not go to dialysis. He was admitted yesterday for itching and possibility of scabies. PAST MEDICAL HISTORY: Includes diabetes, gastroparesis, neuropathy, gastroesophageal reflux disease, and hypertension. MEDICATIONS: Reviewed in the EMR. SOCIAL HISTORY: The patient lives in [facility] currently. No history of smoking or alcohol abuse. ALLERGIES: No known drug allergies. REVIEW OF SYSTEMS: Also some reported shortness of breath yesterday, although he denies it now. PHYSICAL EXAMINATION: GENERAL: The patient is a 63-year-old male, in no acute distress. VITAL SIGNS: Blood pressure 142/77, pulse 66, and temperature 98.3. HEENT: [place] conjunctivae. Anicteric sclerae. NECK: Supple. LUNGS: Bilateral rhonchi. CHEST: The patient has right-sided PermCath. ABDOMEN: Soft and nontender. EXTREMITIES: Bilateral pedal edema. SKIN: The patient has a scratch markings on his arms. LABORATORY FINDINGS: The CBC shows WBC of 5500, hematocrit 24.3, hemoglobin 7.7, and platelets 113,000. Chemistry panel shows a serum sodium 138, potassium 5.7, chloride 101, CO2 22, BUN 117, and creatinine 10.6. ASSESSMENT: This is a 63-year-old male with a history of end-stage renal disease, noncompliant with dialysis, who presents now with some reported shortness of breath. He has a scratch markings under skin possibility of scabies. He is also anemic, mostly from chronic kidney disease. His hypertension is controlled. PLAN: The patient is being dialyzed at this point. Labs will be followed and adjustments will be made. Case was discussed with Dr. Roblero, also with the RN. I advised the patient to be compliant with his dialysis. Thank you very much, Dr. Roblero, for this consultation. Justin Hutson M.D. DR: ASIM JOB#: [id number] CC:
--- NOTE | 2019-07-20 19:00 | Cardiology Progress Note ---
Assessment/Plan Assessment/Plan chf systolic cardiomyopathy hypertension, ype 2 diabetes, and nd-stage renal disease on hemodialysis hyperkalemia, severe anemia dialysis non compliance MR/TR ? scabies refused stress test last time trop min abn of ? sig in light of renal insuf poor compliance makes difficult to treat effectively coreg ecotrin statin for now in light of poor dialysis complaince i do not feel safe puttting him on acei isordil adn hydralazien combo for cm Subjective Cardiovascular: Denies: chest pain, lightheadedness, palpitations Respiratory: Denies: shortness of breath Gastrointestinal/Abdominal: Denies: abdominal pain Genitourinary: Denies: burning Objective Last 24 Hour Vital Signs Date Time Temp Pulse Resp B/P (MAP) Pulse Ox O2 Delivery O2 Flow Rate FiO2 07/20/19 16:00 75 07/20/19 12:00 98.0 70 24 148/69 (95) 97 07/20/19 12:00 71 07/20/19 09:00 Nasal Cannula 2.0 07/20/19 08:53 66 142/77 07/20/19 08:00 98.3 66 24 142/77 (98) 97 07/20/19 08:00 65 07/20/19 07:45 98 Nasal Cannula 2.0 28 07/20/19 07:45 66 20 98 Nasal Cannula 2.0 28 07/20/19 04:00 96.9 61 18 133/81 (98) 98 07/20/19 04:00 63 07/20/19 00:00 97.2 78 18 130/76 (94) 96 07/20/19 00:00 56 07/19/19 21:00 Nasal Cannula 2.0 07/19/19 21:00 Nasal Cannula 2.0 07/19/19 20:55 64 125/65 07/19/19 20:00 97.9 64 20 125/65 (85) 95 07/19/19 20:00 61 General Appearance: no apparent distress, alert, patient on isolation Neck: supple Cardiovascular: normal rate Respiratory/Chest: lungs clear - ant Abdomen: normal bowel sounds, non tender, soft Extremities: no swelling Intake and Output 07/19/19 07/20/19 19:00 07:00 Intake Total 60 ml Output Total 0 ml Balance 0 ml 60 ml Intake Oral 60 ml Output Urine Total 0 ml # Voids 1 # Bowel Movements 1 3 Laboratory Tests Test 07/20/19 05:45 White Blood Count 5.5 K/UL (4.8-10.8) Red Blood Count 2.48 M/UL (4.70-6.10) L Hemoglobin 7.7 G/DL (14.2-18.0) L Hematocrit 24.3 % (42.0-52.0) L Mean Corpuscular Volume 98 FL (80-99) Mean Corpuscular Hemoglobin 31.2 PG (27.0-31.0) H Mean Corpuscular Hemoglobin Concent 31.8 G/DL (32.0-36.0) L Red Cell Distribution Width 17.0 % (11.6-14.8) H Platelet Count 113 K/UL (150-450) L Mean Platelet Volume 5.7 FL (6.5-10.1) L Neutrophils (%) (Auto) % (45.0-75.0) Lymphocytes (%) (Auto) % (20.0-45.0) Monocytes (%) (Auto) % (1.0-10.0) Eosinophils (%) (Auto) % (0.0-3.0) Basophils (%) (Auto) % (0.0-2.0) Differential Total Cells Counted 100 Neutrophils % (Manual) 49 % (45-75) Lymphocytes % (Manual) 32 % (20-45) Monocytes % (Manual) 6 % (1-10) Eosinophils % (Manual) 13 % (0-3) H Basophils % (Manual) 0 % (0-2) Band Neutrophils 0 % (0-8) Platelet Estimate Decreased L Platelet Morphology Normal Hypochromasia 1+ Anisocytosis 1+ Sodium Level 138 MMOL/L (136-145) Potassium Level 5.7 MMOL/L (3.5-5.1) H Chloride Level 101 MMOL/L (98-107) Carbon Dioxide Level 22 MMOL/L (21-32) Anion Gap 15 mmol/L (5-15) Blood Urea Nitrogen 117 mg/dL (7-18) H Creatinine 10.6 MG/DL (0.55-1.30) H Estimat Glomerular Filtration Rate 5.0 mL/min (>60) Glucose Level 136 MG/DL (74-106) H Hemoglobin A1c 5.1 % (4.3-6.0) Calcium Level 10.0 MG/DL (8.5-10.1) Total Bilirubin 0.7 MG/DL (0.2-1.0) Aspartate Amino Transf (AST/SGOT) 56 U/L (15-37) H Alanine Aminotransferase (ALT/SGPT) 106 U/L (12-78) H Alkaline Phosphatase 336 U/L (46-116) H Troponin I 0.149 ng/mL (0.000-0.056) Pro-B-Type Natriuretic Peptide 705 pg/mL (0-125) H Total Protein 7.1 G/DL (6.4-8.2) Albumin 3.1 G/DL (3.4-5.0) L Globulin 4.0 g/dL Albumin/Globulin Ratio 0.8 (1.0-2.7) L Triglycerides Level 46 MG/DL (30-150) Cholesterol Level 138 MG/DL (< 200) LDL Cholesterol 59 mg/dL (<100) HDL Cholesterol 62 MG/DL (40-60) H Cholesterol/HDL Ratio 2.2 (3.3-4.4) L Thyroid Stimulating Hormone (TSH) 3.499 uiU/mL (0.358-3.740) Microbiology Date/Time Source Procedure Growth Status 07/19/19 13:02 Rectum Received Nikko Resendiz MD Jul 20, 2019 19:00
--- NOTE | 2019-07-20 19:33 | NUR ---
HAND-OFF: Report given to to Gianna Ricardo. Patient stable. Plan of care endorsed.
--- NOTE | 2019-07-20 19:35 | NUR ---
NURSE NOTES: Received report from ANTONY Hill. Patient in bed asleep showing no signs of acute distress. Contact precaution observed. Respiration even and non labored on room air. No sob noted. IV noted on Left wrist 20g SL. Pt noted with right arm fistula and right chest permacath, dressing intact. Bed in lowest position, wheels locked and alam on. Call button within reach. Will continue to monitor.
[2019-07-20 20:00] VITALS: BP 147/87
--- NOTE | 2019-07-20 20:25 | NUR ---
CASE MANAGEMENT: REVIEW 63Y/MALE BIBA FROM [facility] CC: SOB AFTER MISSED DIALYSIS TueJun SI: FLUID OVERLOAD . ANEMIA . SCABIES T 98.6 HR 66 RR 16 BP 138/68 SAT 99% NC/4L SAT 7.0/22.6 BUN 117 CR 10.6 TROP 0.201 BNP > 19755 IS: ELIMITE TOPICAL X1 STROMECTOL PO X1 HEMODIALYSES PATIENT ADMITTED TO TELEMETRY UNIT 07/19/2019 DCP: PATIENT IS FROM [facility]
[2019-07-20] MEDS: Atorvastatin 20mg tab ORAL SCH (21:14)
[2019-07-21] VITALS (7 sets, daily range): BP systolic 125–156; BP diastolic 62–77
[2019-07-21] MEDS: Heparin Sod 1000 units/ml 10ml IV ONE (00:49)
[2019-07-21] MEDS: NovoLOG Insulin Flexpen SUBQ SCH ×4 (06:30→20:41)
--- NOTE | 2019-07-21 07:46 | Pulmonology Progress Note ---
Assessment/Plan Assessment/Plan ASSESSMENT Pulmonary edema Congestive heart failure with systolic dysfunction Bilateral pleural effusion Cardiomyopathy/EF 25% End-stage renal disease on hemodialysis Elevated troponin likely troponin leak secondary to renal failure Asymptomatic Mobitz 1; second degree AV block First degree AV block Hyperkalemia Noncompliance with hemodialysis Hypertension Diabetes mellitus type 2 with diabetic neuropathy and gastroparesis Severe pulmonary hypertension Anemia of chronic kidney disease Moderate to severe mitral tricuspid regurgitation Thrombocytopenia Possible scabies Tobacco abuse disorder PLAN OF CARE Telemetry Dyspnea , likely secondary to pulmonary edema due to noncompliance with hemodialysis as well as due to CHF, anemia can contribute as well O2 HHN prn HD as per nephro with close monitoring of volumes and renal parameters , correct e/lytes prn minimal troponin elevation without peak or sravani, ECG no acute ischemic changes , no complaint of chest pain - likely troponin leak secondary to renal failure declined stress test on previous admission ASA, BB statin, but monitor LFT, elevated no ASHLEY given hyperkalemia and noncompliance with hemodialysis started on Isordil and hydralazine, as per international accountant spot Lasix only BP management with current regimen cardio hardware installation coordinator note appreciated long standing 1 st degree AV block, occasionally asymptomatic Mobitz 1 2 nd degree AV block; maybe due to hyper K no need for pacemaker as per cardio BS management sliding scale of insulin monitor H&H with goal to keep hemoglobin above 7 consider starting EPO as per labor/excavator s/p ivermectin and Elimite treatment monitor PLT counts, check abd US given elevated LFT, low PLT ( previous admission hepatitis panel negative) encourage compliance with hemodialysis addiction treatment counselor on smoking cessation, declined Nicotine patch noncompliant and somewhat anxious case discussed and evaluated by supervising physician addendum: just received a call from nursing patient was found at the floor he is awake, alert, denies any pain, ordered CT head patient will need psych eval due to anxiety, noncompliance and possible underlying psych disorder Subjective Allergies: Coded Allergies: No Known Allergies (Unverified , 07/06/19) Subjective denies chest pain, pulse oximetry stable on 2L O2 via NC declined labs this am Objective Last 24 Hour Vital Signs Date Time Temp Pulse Resp B/P (MAP) Pulse Ox O2 Delivery O2 Flow Rate FiO2 07/21/19 04:00 98.5 62 19 125/77 (93) 100 07/21/19 04:00 63 07/21/19 00:00 62 07/21/19 00:00 97.6 69 19 153/63 (93) 95 07/20/19 21:14 68 147/87 07/20/19 21:00 Nasal Cannula 2.0 07/20/19 20:00 65 07/20/19 20:00 97.8 68 19 147/87 (107) 95 07/20/19 18:50 98 Room Air 21 07/20/19 16:00 75 07/20/19 12:00 98.0 70 24 148/69 (95) 97 07/20/19 12:00 71 07/20/19 09:00 Nasal Cannula 2.0 07/20/19 08:53 66 142/77 07/20/19 08:00 98.3 66 24 142/77 (98) 97 07/20/19 08:00 65 Intake and Output 07/20/19 07/21/19 19:00 07:00 Intake Total 60 ml 60 ml Output Total 3000 ml Balance -2940 ml 60 ml Intake Oral 60 ml 60 ml Output Urine Total 0 ml Hemodialysis UF 3000 ml # Voids 1 1 # Bowel Movements 2 1 General Appearance: other - awake, alert, anxious male in NAD HEENT: normocephalic, atraumatic, anicteric, mucous membranes moist, PERRL Respiratory/Chest: chest wall non-tender, no respiratory distress, no accessory muscle use, decreased breath sounds - at bases Cardiovascular: normal peripheral pulses, normal rate, edema - +1 edema BLE Abdomen: soft, non tender Extremities: pedal pulses normal, other Skin: other - scratch markings on arms, legs, torso Neurologic/Psychiatric: alert, responsive - anxious Musculoskeletal: normal muscle bulk Microbiology Date/Time Source Procedure Growth Status 07/19/19 13:02 Nasal Nares MRSA Culture - Final NO METHICILLIN RESISTANT STAPH AUREUS... Complete 07/19/19 13:02 Rectum VRE Culture - Final NO VANCOMYCIN RESISTANT ENTEROCOCCUS ... Complete Current Medications Medications (Trade) Dose Ordered Sig/Trav Route PRN Reason Start Time Stop Time Status Last Admin Dose Admin Acetaminophen (Tylenol) 650 mg Q4H PRN ORAL fever 07/19/19 13:15 08/18/19 13:14 07/19/19 18:26 Albuterol/ Ipratropium (Albuterol/ Ipratropium) 3 ml Q6HRT PRN HHN dyspnea 9/26/19 13:15 07/24/19 13:14 Aspirin (ASA) 81 mg DAILY ORAL 07/20/19 09:00 08/19/19 08:59 07/20/19 08:46 Atorvastatin Calcium (Lipitor) 40 mg BEDTIME ORAL 07/20/19 21:00 08/19/19 20:59 07/20/19 21:14 Carvedilol (Coreg) 12.5 mg EVERY 12 HOURS ORAL 07/19/19 21:00 08/18/19 20:59 07/20/19 21:14 Clonidine HCl (Catapres Tab) 0.1 mg Q4H PRN ORAL SBP>160 07/19/19 13:15 08/18/19 13:14 Dextrose (Dextrose 50%) 25 ml Q30M PRN IV Hypoglycemia 07/19/19 13:15 08/18/19 13:14 Dextrose (Dextrose 50%) 50 ml Q30M PRN IV Hypoglycemia 07/19/19 13:15 08/18/19 13:14 Famotidine (Pepcid) 20 mg DAILY ORAL 07/20/19 09:00 08/19/19 08:59 07/20/19 08:46 Furosemide (Lasix) 100 mg Q8H PRN IV dyspnea 07/19/19 13:15 08/18/19 13:14 Heparin Sodium (Porcine) (Heparin 5000 units/ml) 5,000 units EVERY 12 HOURS SUBQ 07/19/19 21:00 08/18/19 20:59 Heparin Sodium (Porcine) (Heparin) 1,000 unit POSTHD INJ 07/21/19 09:00 08/20/19 08:59 Hydralazine HCl (Apresoline) 10 mg TID ORAL 07/21/19 09:00 08/20/19 08:59 Insulin Aspart (NovoLOG) BEFORE MEALS AND HS SUBQ 07/19/19 16:30 08/18/19 16:29 07/20/19 21:15 Isosorbide Dinitrate (Isordil) 10 mg TID ORAL 07/21/19 09:00 08/20/19 08:59 Morphine Sulfate (Morphine Sulfate) 1 mg Q4H PRN IVP For Pain 07/19/19 13:15 07/26/19 13:14 Ondansetron HCl (Zofran) 4 mg Q6H PRN IVP Nausea & Vomiting 07/19/19 13:15 08/18/19 13:14 Permethrin (Elimite) 1 applic ONCE ONCE TOPIC 07/27/19 09:00 07/27/19 09:01 Polyethylene Glycol (Miralax) 17 gm HSPRN PRN ORAL Constipation 07/19/19 13:15 08/18/19 13:14 Sodium Chloride 1,000 ml @ 500 mls/hr Q2H PRN IVLG sbp<90 during hd 07/21/19 00:45 08/20/19 00:44 Vitamin B Complex/ Vit C/Folic Acid (Nephrovite) 1 tab DAILY ORAL 07/20/19 09:00 08/19/19 08:59 07/20/19 08:45 Zolpidem Tartrate (Ambien) 5 mg HSPRN PRN ORAL Insomnia 07/19/19 13:15 07/26/19 13:14 Montserrat Martin NP Jul 21, 2019 07:46
--- NOTE | 2019-07-21 07:50 | NUR ---
NURSE NOTES: Nurse report given by ANTONY Ricardo. Patient's awake in bed, eating breakfast. No s/s of distress or SOB, denies pain. Bed low and locked, call light within reach, side rails x 2, contact precaution is aware. IV is patent and asymptomatic. R Arm fistula is present, bruit noted; Right upper chest permacath present for hemodialysis. Will continue to monitor.
--- NOTE | 2019-07-21 07:53 | NUR ---
HAND-OFF: Report given to ANTONY Beatty.
--- NOTE | 2019-07-21 08:30 | NUR ---
NURSE NOTES: Montserrat Martin CONTROL SYSTEMS DEVELOPER reported to nurse that patient hit her as she tried to assess the patient. Nurse came into the room and assess the patient. Patient is uncooperated and beligent. Told the patient to behave and be nice and to calm down. Patient listened and cooperated.
[2019-07-21] MEDS ORDERED: Heparin 1000 units/ml 1ml Vial INJ SCH (09:00)
[2019-07-21] MEDS: Heparin 5000 units/ml inj SUBQ SCH ×2 (09:00→20:17)
[2019-07-21] MEDS: Nephrovite tab (Rena-Vite) ORAL SCH (09:05)
[2019-07-21] MEDS: Aspirin Baby 81mg ORAL SCH (09:05)
[2019-07-21] MEDS: HydrALAZINE 10mg Tab ORAL SCH ×3 (09:05→17:52)
[2019-07-21] MEDS: Carvedilol 12.5mg tab ORAL SCH ×3 (09:05→20:47)
[2019-07-21] MEDS: Albuterol/Ipratropium 3ml neb HHN PRN (09:20)
--- NOTE | 2019-07-21 11:00 | NUR ---
NURSE NOTES: Bed alarms went off several times as patient tried to move out of bed. HAND STRIPPER and nurse came into the room and helped patient. Patient fall teaching education were given and reminded many times that patient should use call light button when need help and not to get out by himself. Call light is next to patient, bed alarm is armed and activated, side rails x 3. Patient verbally acknowledged.
--- NOTE | 2019-07-21 11:50 | Cardiology Progress Note ---
Assessment/Plan Problem List: (1) Hyperkalemia (2) Mobitz (type) I (Wenckebach's) atrioventricular block (3) First degree AV block (4) CHF (congestive heart failure) (5) ESRD needing dialysis (6) HTN (hypertension) (7) Physical debility Status: stable, progressing Status Narrative Mr. Benedict is a 63 yo man with ESRD, on hemodialysis, cardiomyopathy, w/ severely decreased LV systolic function EF 15-20% by last ECHO) . He was admitted w/ volume overload and hyperkalemia after missing dialysis. His troponin is mildly elevated, but this could be due to RF. BNP inaccurate in setting of RF Per the notes, he refused stress testing during the past admission He has long first degree av block and occ mobitz 1 second deg avb , which is currently asymptomatic Assessment/Plan recommend hydralazine/ isordil for afterload reduction . No adriana/arb, as pt w/ hyperkalemia Fluid removal w/ HD His av block may be due to hyperkalemia - will check K today. Does not meet criteria for pacemaker, as he has asymptomatic mobitz 1, and also, this may be due to elevated K May eventually be a candidate for ICD, but would first need ischemia evaluation ( either stress nuclear or cath) and optimization of medical therapy. Subjective ROS Limited/Unobtainable: Yes Subjective Cardiology for Dr. Resendiz No c/o. Pt is a limited historian Objective Last 24 Hour Vital Signs Date Time Temp Pulse Resp B/P (MAP) Pulse Ox O2 Delivery O2 Flow Rate FiO2 07/21/19 09:20 89 18 99 Nasal Cannula 2.0 28 85 18 98 07/21/19 09:20 98 Nasal Cannula 2.0 28 07/21/19 09:05 156/72 07/21/19 09:05 156/72 07/21/19 09:05 71 156/72 07/21/19 09:00 Nasal Cannula 2.0 07/21/19 08:00 98.9 71 20 156/72 (100) 100 07/21/19 08:00 70 07/21/19 04:00 98.5 62 19 125/77 (93) 100 07/21/19 04:00 63 07/21/19 00:00 62 07/21/19 00:00 97.6 69 19 153/63 (93) 95 07/20/19 21:14 68 147/87 07/20/19 21:00 Nasal Cannula 2.0 07/20/19 20:00 65 07/20/19 20:00 97.8 68 19 147/87 (107) 95 07/20/19 18:50 98 Room Air 21 07/20/19 16:00 75 07/20/19 12:00 98.0 70 24 148/69 (95) 97 07/20/19 12:00 71 General Appearance: no apparent distress, alert, other - chronically ill appearing EENT: PERRL/EOMI Neck: supple, no JVD, other - R IJ HD catheter Rhythm: NSR Cardiovascular: normal rate, regular rhythm Respiratory/Chest: rhonchi - bilaterally Abdomen: normal bowel sounds, non tender, soft Extremities: no swelling - excoriated lesions over arms, legs bilat, other Intake and Output 07/20/19 07/21/19 18:59 06:59 Intake Total 60 ml 60 ml Output Total 3000 ml Balance -2940 ml 60 ml Intake Oral 60 ml 60 ml Output Urine Total 0 ml Hemodialysis UF 3000 ml # Voids 1 1 # Bowel Movements 2 1 Labs Test 07/20/19 05:45 White Blood Count 5.5 K/UL (4.8-10.8) Red Blood Count 2.48 M/UL (4.70-6.10) Hemoglobin 7.7 G/DL (14.2-18.0) Hematocrit 24.3 % (42.0-52.0) Mean Corpuscular Volume 98 FL (80-99) Mean Corpuscular Hemoglobin 31.2 PG (27.0-31.0) Mean Corpuscular Hemoglobin Concent 31.8 G/DL (32.0-36.0) Red Cell Distribution Width 17.0 % (11.6-14.8) Platelet Count 113 K/UL (150-450) Mean Platelet Volume 5.7 FL (6.5-10.1) Neutrophils (%) (Auto) % (45.0-75.0) Lymphocytes (%) (Auto) % (20.0-45.0) Monocytes (%) (Auto) % (1.0-10.0) Eosinophils (%) (Auto) % (0.0-3.0) Basophils (%) (Auto) % (0.0-2.0) Differential Total Cells Counted 100 Neutrophils % (Manual) 49 % (45-75) Lymphocytes % (Manual) 32 % (20-45) Monocytes % (Manual) 6 % (1-10) Eosinophils % (Manual) 13 % (0-3) Basophils % (Manual) 0 % (0-2) Band Neutrophils 0 % (0-8) Platelet Estimate Decreased Platelet Morphology Normal Hypochromasia 1+ Anisocytosis 1+ Sodium Level 138 MMOL/L (136-145) Potassium Level 5.7 MMOL/L (3.5-5.1) Chloride Level 101 MMOL/L (98-107) Carbon Dioxide Level 22 MMOL/L (21-32) Anion Gap 15 mmol/L (5-15) Blood Urea Nitrogen 117 mg/dL (7-18) Creatinine 10.6 MG/DL (0.55-1.30) Estimat Glomerular Filtration Rate 5.0 mL/min (>60) Glucose Level 136 MG/DL (74-106) Hemoglobin A1c 5.1 % (4.3-6.0) Calcium Level 10.0 MG/DL (8.5-10.1) Total Bilirubin 0.7 MG/DL (0.2-1.0) Aspartate Amino Transf (AST/SGOT) 56 U/L (15-37) Alanine Aminotransferase (ALT/SGPT) 106 U/L (12-78) Alkaline Phosphatase 336 U/L (46-116) Troponin I 0.149 ng/mL (0.000-0.056) Pro-B-Type Natriuretic Peptide 705 pg/mL (0-125) Total Protein 7.1 G/DL (6.4-8.2) Albumin 3.1 G/DL (3.4-5.0) Globulin 4.0 g/dL Albumin/Globulin Ratio 0.8 (1.0-2.7) Triglycerides Level 46 MG/DL (30-150) Cholesterol Level 138 MG/DL (< 200) LDL Cholesterol 59 mg/dL (<100) HDL Cholesterol 62 MG/DL (40-60) Cholesterol/HDL Ratio 2.2 (3.3-4.4) Thyroid Stimulating Hormone (TSH) 3.499 uiU/mL (0.358-3.740) Microbiology Date/Time Source Procedure Growth Status 07/19/19 13:02 Nasal Nares MRSA Culture - Final NO METHICILLIN RESISTANT STAPH AUREUS... Complete 07/19/19 13:02 Rectum VRE Culture - Final NO VANCOMYCIN RESISTANT ENTEROCOCCUS ... Complete Dary Gallo MD Jul 21, 2019 11:50
--- NOTE | 2019-07-21 13:00 | NUR ---
NURSE NOTES: Patient was found on the floor by TOWER SWITCH OPERATOR as she claimed she heard that he might hit his head. TOWER SWITCH OPERATOR and nurse were in the room with the patient prior to that 8 minutes ago. His call light was next to the patient on the right, bed alarm was armed. Patient denied having pain, he claimed that he wanted to close the curtain and decided to get up by himself. He said he pumped his head lightly, he denied having pain but he stated his pride hurt. Nurse assessed his head, no sign of outside trauma, no bleeding, no bump. He denied hitting anywhere else on his body. Vital signs are taken: BP 134/64, HR 87, O20 98%, Temp 98.2. We got him back to bed, call light is next to patient, patient teaching again that he needs to call us when in need, bed alarm is armed, side rails x 3. Will continue to monitor closely.
--- NOTE | 2019-07-21 13:15 | NUR ---
NURSE NOTES: Contacted Dr. Roblero and JOSHUA Martin regarding patient's fall condition. Left messages for both of them. Awaiting for responses.
--- NOTE | 2019-07-21 13:35 | NUR ---
NURSE NOTES: JOSHUA Martin replied and ordered head CT stat and asked for psych consult by Dr. Crisostomo regarding patient's behavior. Orders acknowledged and carried out.
[2019-07-21 13:41] LABS: ANION GAP 14 mmol/L (5-15); BLOOD UREA NITROGEN 98 mg/dL (7-18); CALCIUM 9.7 MG/DL (8.5-10.1); CARBON DIOXIDE 24 MMOL/L (21-32); CHLORIDE 104 MMOL/L (98-107); CREATININE 8.9 MG/DL (0.55-1.30); POTASSIUM 5.7 MMOL/L (3.5-5.1); SODIUM 142 MMOL/L (136-145)
--- NOTE | 2019-07-21 13:45 | Nephrology Progress Note ---
Assessment/Plan Status: stable, progressing Assessment/Plan: A/P Covering Dr Santiago until TuesdayJul 23 1) ESRD- noncompliant - had missed HD treatments - Had HD yesterday. Will arrange for HD Tuesday if labs stable 2) Hyperkalemia- AM labs pending - resolved post HD - HD Tuesday 3) Scabies?? defer to PCP 4) Volume Overload- mgmt per cardiology - post HD - stable and improved Subjective Date patient seen: Jul 21, 2019 Time patient seen: 13:41 ROS Limited/Unobtainable: Yes Allergies: Coded Allergies: No Known Allergies (Unverified , 07/06/19) Subjective Patient in no overt distress. Not very communicative Objective Last 24 Hour Vital Signs Date Time Temp Pulse Resp B/P (MAP) Pulse Ox O2 Delivery O2 Flow Rate FiO2 07/21/19 12:00 68 07/21/19 11:58 97.9 68 21 136/62 (86) 98 07/21/19 09:20 89 18 99 Nasal Cannula 2.0 18 98 07/21/19 09:20 98 Nasal Cannula 2.0 28 07/21/19 09:05 156/72 07/21/19 09:05 156/72 07/21/19 09:05 71 156/72 07/21/19 09:00 Nasal Cannula 2.0 07/21/19 08:00 98.9 71 20 156/72 (100) 100 07/21/19 08:00 70 07/21/19 04:00 98.5 62 19 125/77 (93) 100 07/21/19 04:00 63 07/21/19 00:00 62 07/21/19 00:00 97.6 69 19 153/63 (93) 95 07/20/19 21:14 68 147/87 07/20/19 21:00 Nasal Cannula 2.0 07/20/19 20:00 65 07/20/19 20:00 97.8 68 19 147/87 (107) 95 07/20/19 18:50 98 Room Air 21 07/20/19 16:00 75 Intake and Output 07/20/19 07/21/19 18:59 06:59 Intake Total 60 ml 60 ml Output Total 3000 ml Balance -2940 ml 60 ml Intake Oral 60 ml 60 ml Output Urine Total 0 ml Hemodialysis UF 3000 ml # Voids 1 1 # Bowel Movements 2 1 Laboratory Tests 07/21/19 13:00: Sodium Level [Pending], Potassium Level [Pending], Chloride Level [Pending], Carbon Dioxide Level [Pending], Blood Urea Nitrogen [Pending], Creatinine [ Pending], Estimat Glomerular Filtration Rate [Pending], Glucose Level [Pending] , Calcium Level [Pending] Height (Feet): 5 Height (Inches): 8.00 Weight (Pounds): 209 General Appearance: no apparent distress, agitated EENT: normal ENT inspection Neck: normal alignment, supple Cardiovascular: normal rate, regular rhythm Respiratory/Chest: rhonchi - bilaterally Abdomen: non tender, soft Edema: no edema noted Arm (L), no edema noted Arm (R), no edema noted Leg (L), no edema noted Leg (R), no edema noted Pedal (L), no edema noted Pedal (R), no edema noted Generalized Jae Weir MD Jul 21, 2019 13:45
--- NOTE | 2019-07-21 14:10 | NUR ---
NURSE NOTES: Spoke with Mando, from [facility]. on 07/23/19.
--- NOTE | 2019-07-21 15:36 | Diagnostic Imaging Report ---
History: FALL Exam: CT HEAD Without Contrast Technique more: CTDI is 73.90 mGy and DLP is 1816.80 mGy-cm. Technique more: One or more of the following dose reduction techniques were used: automated exposure control, adjustment of the mA and or kV according to patient size, use of iterative reconstruction technique. Comparison: None available FINDINGS: Motion artifact limits the evaluation. No evidence of intracranial hemorrhage, mass effect or calvarial fracture identified. The ventricles are within limits and midline. Mild mucoperiosteal thickening bilateral maxillary sinuses with synechia on the right. The other paranasal sinuses, mastoids and orbits appear within limits. Question bilateral symmetric appearing periorbital soft tissue swelling, clinically correlate. Diffuse areas of scalp vascular calcification noted. IMPRESSION: Motion artifact limits the evaluation. No evidence of intracranial hemorrhage, mass effect or calvarial fracture identified. May follow-up with short-term repeat exam as warranted. Mild mucoperiosteal thickening bilateral maxillary sinuses with synechia on the right. Question bilateral symmetric appearing periorbital soft tissue swelling, clinically correlate. Diffuse areas of scalp vascular calcification noted.
--- NOTE | 2019-07-21 15:36 | Internal Med Progress Note ---
Subjective Date of Service: Jul 21, 2019 Physician Name Kuldip Crisostomo Attending Physician Geovany Roblero MD Current Medications Medications (Trade) Dose Ordered Sig/Trav Route PRN Reason Start Time Stop Time Status Last Admin Dose Admin Acetaminophen (Tylenol) 650 mg Q4H PRN ORAL fever 07/19/19 13:15 08/18/19 13:14 07/19/19 18:26 Albuterol/ Ipratropium (Albuterol/ Ipratropium) 3 ml Q6HRT PRN HHN dyspnea 07/19/19 13:15 07/24/19 13:14 07/21/19 09:20 Aspirin (ASA) 81 mg DAILY ORAL 07/20/19 09:00 08/19/19 08:59 07/21/19 09:05 Atorvastatin Calcium (Lipitor) 40 mg BEDTIME ORAL 07/20/19 21:00 08/19/19 20:59 07/20/19 21:14 Carvedilol (Coreg) 12.5 mg EVERY 12 HOURS ORAL 07/19/19 21:00 08/18/19 20:59 07/21/19 09:05 Clonidine HCl (Catapres Tab) 0.1 mg Q4H PRN ORAL SBP>160 07/19/19 13:15 08/18/19 13:14 Dextrose (Dextrose 50%) 25 ml Q30M PRN IV Hypoglycemia 07/19/19 13:15 08/18/19 13:14 Dextrose (Dextrose 50%) 50 ml Q30M PRN IV Hypoglycemia 07/19/19 13:15 08/18/19 13:14 Famotidine (Pepcid) 20 mg DAILY ORAL 07/20/19 09:00 08/19/19 08:59 07/21/19 09:06 Heparin Sodium (Porcine) (Heparin 5000 units/ml) 5,000 units EVERY 12 HOURS SUBQ 07/19/19 21:00 08/18/19 20:59 Heparin Sodium (Porcine) (Heparin) 1,000 unit POSTHD INJ 07/21/19 09:00 08/20/19 08:59 Hydralazine HCl (Apresoline) 10 mg TID ORAL 07/21/19 09:00 08/20/19 08:59 07/21/19 09:05 Insulin Aspart (NovoLOG) BEFORE MEALS AND HS SUBQ 07/19/19 16:30 08/18/19 16:29 07/21/19 11:50 Isosorbide Dinitrate (Isordil) 10 mg TID ORAL 07/21/19 09:00 08/20/19 08:59 07/21/19 09:05 Morphine Sulfate (Morphine Sulfate) 1 mg Q4H PRN IVP For Pain 07/19/19 13:15 07/26/19 13:14 Ondansetron HCl (Zofran) 4 mg Q6H PRN IVP Nausea & Vomiting 07/19/19 13:15 08/18/19 13:14 Permethrin (Elimite) 1 applic ONCE ONCE TOPIC 07/27/19 09:00 07/27/19 09:01 Polyethylene Glycol (Miralax) 17 gm HSPRN PRN ORAL Constipation 07/19/19 13:15 08/18/19 13:14 Sodium Chloride 1,000 ml @ 500 mls/hr Q2H PRN IVLG sbp<90 during hd 07/21/19 00:45 08/20/19 00:44 Vitamin B Complex/ Vit C/Folic Acid (Nephrovite) 1 tab DAILY ORAL 07/20/19 09:00 08/19/19 08:59 07/21/19 09:05 Zolpidem Tartrate (Ambien) 5 mg HSPRN PRN ORAL Insomnia 07/19/19 13:15 07/26/19 13:14 Allergies: Coded Allergies: No Known Allergies (Unverified , 07/06/19) ROS Limited/Unobtainable: No Constitutional: Reports: no symptoms HEENT: Reports: no symptoms Cardiovascular: Reports: no symptoms Respiratory: Reports: shortness of breath Genitourinary: Reports: no symptoms Neurologic/Psychiatric: Reports: no symptoms Subjective 63 YO M admitted with dyspnea. Now CHF. Cover for Jaquan Roblero. Objective Last Vital Signs Date Time Temp Pulse Resp B/P (MAP) Pulse Ox O2 Delivery O2 Flow Rate FiO2 07/21/19 13:00 136/62 07/21/19 12:00 68 07/21/19 11:58 97.9 21 98 07/21/19 09:20 Nasal Cannula 2.0 28 Laboratory Tests Test 07/21/19 13:00 Sodium Level 142 MMOL/L (136-145) Potassium Level 5.7 MMOL/L (3.5-5.1) H Chloride Level 104 MMOL/L (98-107) Carbon Dioxide Level 24 MMOL/L (21-32) Anion Gap 14 mmol/L (5-15) Blood Urea Nitrogen 98 mg/dL (7-18) H Creatinine 8.9 MG/DL (0.55-1.30) H Estimat Glomerular Filtration Rate 6.1 mL/min (>60) Glucose Level 110 MG/DL (74-106) H Calcium Level 9.7 MG/DL (8.5-10.1) Microbiology Date/Time Source Procedure Growth Status 07/19/19 13:02 Nasal Nares MRSA Culture - Final NO METHICILLIN RESISTANT STAPH AUREUS... Complete 07/19/19 13:02 Rectum VRE Culture - Final NO VANCOMYCIN RESISTANT ENTEROCOCCUS ... Complete Intake and Output 07/20/19 07/21/19 18:59 06:59 Intake Total 60 ml 60 ml Output Total 3000 ml Balance -2940 ml 60 ml Intake Oral 60 ml 60 ml Output Urine Total 0 ml Hemodialysis UF 3000 ml # Voids 1 1 # Bowel Movements 2 1 Objective PHYSICAL EXAMINATION: GENERAL: The patient is a well-developed and well-nourished male, in no apparent distress. HEENT: Eyes, pupils are equal and responsive to light and accommodation. Extraocular movements are intact. NECK: Supple without lymphadenopathy. CHEST: Lungs are clear to auscultation bilaterally without wheezes or rales. CARDIOVASCULAR: Regular rhythm and rate. S1 and S2 are normal without murmurs, rubs, or gallops. ABDOMEN: Soft, nontender, and nondistended. Positive bowel sounds. No evidence of hepatosplenomegaly. Currently, no rebound or guarding noted. EXTREMITIES: Negative for clubbing, cyanosis, or edema. RECTAL/GENITAL: Refused. NEUROLOGIC: Cranial nerves II through XII are grossly intact without focal deficits. Motor strength is 5/5 bilaterally. Deep tendon reflexes are 2+ plantar. Assessment/Plan Assessment/Plan ASSESSMENT: This is a 63-year-old male. 1. Dyspnea. 2. Congestive heart failure. 3. End-stage renal disease. 4. Diabetes type 2. 5. Diabetic gastroparesis. 6. Diabetic neuropathy. 7. Gastroesophageal reflux disease. 8. Hypertension. 9. Pmwmuclf-ab-mvxekx mitral valve regurgitation. 10. Zbverwmw-lc-iqjooi tricuspid valve regurgitation. 11. Pulmonary hypertension. 12. Anemia of chronic renal disease. TREATMENT: 1. Dyspnea. A Pulmonary consultation has been obtained with Dr. Christy Mercer. We will follow recommendations of Pulmonary. Dyspnea is probably secondary to volume overload. We will follow recommendations of Pulmonary. 2. Congestive heart failure. This is probably secondary to volume overload. A Cardiology consultation is pending with Dr. Nikko Resendiz. Serial troponin levels will be performed. Serial BNPs will be performed. 3. Diabetes type 2. NovoLog sliding scale has been instituted. 4. Diabetic gastroparesis. 5. Diabetic neuropathy. 6. Gastroesophageal reflux disease. Continue Pepcid as above. 7. Hypertension. Continue clonidine and carvedilol as above. 8. Uechktgi-ux-hdjavl mitral valve regurgitation. 9. Vnclgkli-ik-gurnwr tricuspid valve regurgitation. 10. Pulmonary hypertension. 11. Anemia of chronic renal disease. 12. ESRD S/P hemodialysis 07/20/19. See nephrology note Kuldip Crisostomo MD Jul 21, 2019 15:36
--- NOTE | 2019-07-21 18:00 | NUR ---
NURSE NOTES: Contacted Dr. Yanes for new psych consult per Dr. Crisostomo's request. Awaiting for response.
--- NOTE | 2019-07-21 19:49 | NUR ---
HAND-OFF: Report given to Gianna Martel. Plan of care endorsed.
--- NOTE | 2019-07-21 19:56 | NUR ---
NURSE NOTES: Received report from ANTONY Beatty. Patient is awake sitting on the edge of the bed; resting comfortably. No signs of acute distress noted; denies pain at this time. On 2L nasal cannula. AOx4; able to make needs known. Checked IV site; patent and flushed. No erythema, bleeding, or infiltration noted. Bed at lowest position, brakes on, siderails up x3. Call light within reach. Will continue to monitor. Addendum: 07/22/19 at 0309 by NASIMA BOLDEN RN RN Right chest permcath and right AV shunt noted.
[2019-07-21] MEDS: Atorvastatin 20mg tab ORAL SCH (20:34)
[2019-07-22] VITALS: BP 146/64
--- NOTE | 2019-07-22 01:11 | NUR ---
NURSE NOTES: Patient is requesting a sandwich at this time. Repeatedly attempted to explain to the patient that patient must be NPO for abdominal ultrasound procedure later in AM. Was told, "Come on now, that's not right! I want to eat." Risks and benefits explained; still wants to eat.
--- NOTE | 2019-07-22 03:08 | NUR ---
NURSE NOTES: Patient is asleep lying semi-purdy's; resting comfortably. No signs of acute distress or pain noted at this time. On 2L nasal cannula.
[2019-07-22 04:00] VITALS: BP 142/63
--- NOTE | 2019-07-22 05:11 | NUR ---
NURSE NOTES: Patient repeatedly educated on the importance of being NPO for abdominal ultrasound procedure, but patient refuses to listen and continued to drink apple juice.
[2019-07-22] MEDS: NovoLOG Insulin Flexpen SUBQ SCH ×4 (05:53→20:29)
[2019-07-22] MEDS: Albuterol/Ipratropium 3ml neb HHN PRN ×2 (06:39→20:57)
--- NOTE | 2019-07-22 07:25 | NUR ---
HAND-OFF: Report given to ANTONY Jasso. Patient is awake sitting on the edge of the bed; resting comfortably. On 2L nasal cannula. In stable condition.
--- NOTE | 2019-07-22 07:44 | NUR ---
NURSE NOTES: Received report from ANTONY Martel. Patient aox4 with restless , demanding affect: removed tele x2 and attempted to get oob without assist x1 in first 15 mins of shift. Active listeningand emotional support offered : patient agreed to call before getting oob. Patient stated he is worried about his , who is in hospital though he doesn't know where. Coughing non-productive frequently. Patient stated "I don't have any pain, but this cough is bad" Explained to patient plan for abd U/S to investigate his c/o dry heaves and belly discomfort. Bed in lowest locked position with alarm on and call banks , remote in reach. Patient in room closest to RN station for safety monitoring to prevent falls--yellow socks , signage, and all precautions in place. No sign of cardiac or respiratory distress--wctm.
[2019-07-22 07:59] LABS: HEMATOCRIT 26.7 % (42.0-52.0); HEMOGLOBIN 7.8 G/DL (14.2-18.0); MEAN CORPUSCULAR VOLUME 99 FL (80-99); PLATELET COUNT 108 K/UL (150-450); RED BLOOD COUNT 2.69 M/UL (4.70-6.10); RED CELL DISTRIBUTION WIDTH 18.5 % (11.6-14.8); WHITE BLOOD COUNT 5.8 K/UL (4.8-10.8)
[2019-07-22 08:00] VITALS: BP 155/69
[2019-07-22 08:09] LABS: ANION GAP 15 mmol/L (5-15); BLOOD UREA NITROGEN 107 mg/dL (7-18); CALCIUM 9.9 MG/DL (8.5-10.1); CARBON DIOXIDE 23 MMOL/L (21-32); CHLORIDE 103 MMOL/L (98-107); CREATININE 9.6 MG/DL (0.55-1.30); POTASSIUM 5.8 MMOL/L (3.5-5.1); SODIUM 141 MMOL/L (136-145)
[2019-07-22] MEDS: Heparin 5000 units/ml inj SUBQ SCH ×2 (09:00→20:29)
[2019-07-22] MEDS: Carvedilol 12.5mg tab ORAL SCH ×2 (09:50→20:25)
[2019-07-22] MEDS: HydrALAZINE 10mg Tab ORAL SCH ×4 (09:50→20:25)
[2019-07-22] MEDS: Nephrovite tab (Rena-Vite) ORAL SCH (09:50)
[2019-07-22] MEDS: Aspirin Baby 81mg ORAL SCH (09:50)
--- NOTE | 2019-07-22 09:51 | Pulmonology Progress Note ---
Assessment/Plan Assessment/Plan ASSESSMENT Pulmonary edema Congestive heart failure with systolic dysfunction Bilateral pleural effusion Cardiomyopathy/EF 25% End-stage renal disease on hemodialysis Elevated troponin likely troponin leak secondary to renal failure Asymptomatic Mobitz 1; second degree AV block First degree AV block Hyperkalemia Noncompliance with hemodialysis Hypertension Diabetes mellitus type 2 with diabetic neuropathy and gastroparesis Severe pulmonary hypertension Anemia of chronic kidney disease Moderate to severe mitral tricuspid regurgitation Thrombocytopenia Possible scabies Tobacco abuse disorder s/p fall PLAN OF CARE Telemetry Dyspnea , likely secondary to pulmonary edema due to noncompliance with hemodialysis as well as due to CHF, anemia can contribute as well O2 HHN prn HD as per nephro with close monitoring of volumes and renal parameters , correct e/lytes prn minimal troponin elevation without peak or sravani, ECG no acute ischemic changes , no complaint of chest pain - likely troponin leak secondary to renal failure declined stress test on previous admission ASA, BB statin, but monitor LFT, elevated no ASHLEY given hyperkalemia and noncompliance with hemodialysis started on Isordil and hydralazine, as per wood cabinetmaker spot Lasix only BP management with current regimen 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 note appreciated long standing 1 st degree AV block, occasionally asymptomatic Mobitz 1 2 nd degree AV block; maybe due to hyper K per cardio need ischemia eval first and medical optimization, then may be a candidate for ICD BS management sliding scale of insulin monitor H&H with goal to keep hemoglobin above 7 consider starting EPO as per chipping machine operator s/p ivermectin and Elimite treatment monitor PLT counts, check abd US given elevated LFT, low PLT ( previous admission hepatitis panel negative) encourage compliance with hemodialysis senior counsel on smoking cessation, declined Nicotine patch noncompliant and somewhat anxious CT head no acute IC pathology, fall precautions, moved closer to the nursing station case discussed and evaluated by supervising physician Subjective Allergies: Coded Allergies: No Known Allergies (Unverified , 07/06/19) Subjective denies chest pain, pulse oximetry stable on 2L O2 via NC labs with hyperkalemia,-persistent Objective Last 24 Hour Vital Signs Date Time Temp Pulse Resp B/P (MAP) Pulse Ox O2 Delivery O2 Flow Rate FiO2 07/22/19 08:00 70 07/22/19 08:00 97.3 67 20 155/69 (97) 97 07/22/19 06:49 71 21 97 Nasal Cannula 2.0 28 67 22 92 07/22/19 06:39 92 Nasal Cannula 2.0 28 07/22/19 04:00 97.5 69 18 142/63 (89) 98 07/22/19 04:00 67 07/22/19 00:00 97.5 66 18 146/64 (91) 99 07/22/19 00:00 63 07/21/19 21:00 Nasal Cannula 2.0 07/21/19 20:47 71 137/66 07/21/19 20:00 68 07/21/19 20:00 97.3 71 20 137/66 (89) 100 07/21/19 19:55 97 Room Air 21 07/21/19 17:52 152/71 07/21/19 17:52 152/71 07/21/19 16:43 98.4 98 Nasal Cannula 2.0 07/21/19 16:00 97.8 69 22 152/71 (98) 97 07/21/19 16:00 60 07/21/19 13:00 136/62 07/21/19 13:00 136/62 07/21/19 12:00 68 07/21/19 11:58 97.9 68 21 136/62 (86) 98 Intake and Output 07/21/19 07/22/19 19:00 07:00 Intake Total 150 ml 500 ml Balance 150 ml 500 ml Intake Oral 150 ml 500 ml # Voids 2 6 # Bowel Movements 2 2 Objective General Appearance: awake, alert, more calm today male in NAD HEENT: normocephalic, atraumatic, anicteric, mucous membranes moist, PERRL Respiratory/Chest: chest wall non-tender, no respiratory distress, no accessory muscle use, decreased breath sounds at bases Cardiovascular: normal peripheral pulses, normal rate, edema - +1 edema BLE Abdomen: soft, non tender Extremities: pedal pulses normal, other Skin: other - scratch markings on arms, legs, torso Neurologic/Psychiatric: alert, responsive Musculoskeletal: normal muscle bulk Microbiology Date/Time Source Procedure Growth Status 07/19/19 13:02 Nasal Nares MRSA Culture - Final NO METHICILLIN RESISTANT STAPH AUREUS... Complete 07/19/19 13:02 Rectum - Final NO CARBAPENEM-RESISTANT ENTEROBACTERI... Complete 07/19/19 13:02 Rectum VRE Culture - Final NO VANCOMYCIN RESISTANT ENTEROCOCCUS ... Complete Laboratory Tests 07/21/19 13:00: Sodium Level 142, Potassium Level 5.7H, Chloride Level 104, Carbon Dioxide Level 24, Anion Gap 14, Blood Urea Nitrogen 98H, Creatinine 8.9H, Estimat Glomerular Filtration Rate 6.1, Glucose Level 110H, Calcium Level 9.7 07/22/19 06:00: Sodium Level 141, Potassium Level 5.8H, Chloride Level 103, Carbon Dioxide Level 23, Anion Gap 15, Blood Urea Nitrogen 107H, Creatinine 9.6H, Estimat Glomerular Filtration Rate 5.6, Glucose Level 131H, Calcium Level 9.9, White Blood Count 5.8, Red Blood Count 2.69L, Hemoglobin 7.8L, Hematocrit 26.7L, Mean Corpuscular Volume 99, Mean Corpuscular Hemoglobin 29.0, Mean Corpuscular Hemoglobin Concent 29.2L, Red Cell Distribution Width 18.5H, Platelet Count 108L , Mean Platelet Volume 5.8L, Neutrophils (%) (Auto) , Lymphocytes (%) (Auto) , Monocytes (%) (Auto) , Eosinophils (%) (Auto) , Basophils (%) (Auto) , Neutrophils % (Manual) [Pending], Lymphocytes % (Manual) [Pending], Platelet Estimate [Pending], Platelet Morphology [Pending] Current Medications Medications (Trade) Dose Ordered Sig/Trav Route PRN Reason Start Time Stop Time Status Last Admin Dose Admin Acetaminophen (Tylenol) 650 mg Q4H PRN ORAL fever 07/19/19 13:15 08/18/19 13:14 07/19/19 18:26 Albuterol/ Ipratropium (Albuterol/ Ipratropium) 3 ml Q6HRT PRN HHN dyspnea 07/19/19 13:15 07/24/19 13:14 07/22/19 06:39 Aspirin (ASA) 81 mg DAILY ORAL 07/20/19 09:00 08/19/19 08:59 07/21/19 09:05 Atorvastatin Calcium (Lipitor) 40 mg BEDTIME ORAL 07/20/19 21:00 08/19/19 20:59 07/21/19 20:34 Carvedilol (Coreg) 12.5 mg EVERY 12 HOURS ORAL 07/19/19 21:00 08/18/19 20:59 07/21/19 09:05 Chlorhexidine Gluconate (Kaylee-Hex 2%) 1 applic DAILY@2000 TOPIC 07/22/19 20:00 08/21/19 19:59 Clonidine HCl (Catapres Tab) 0.1 mg Q4H PRN ORAL SBP>160 07/19/19 13:15 08/18/19 13:14 Dextrose (Dextrose 50%) 25 ml Q30M PRN IV Hypoglycemia 07/19/19 13:15 08/18/19 13:14 Dextrose (Dextrose 50%) 50 ml Q30M PRN IV Hypoglycemia 07/19/19 13:15 08/18/19 13:14 Famotidine (Pepcid) 20 mg DAILY ORAL 07/20/19 09:00 08/19/19 08:59 07/21/19 09:06 Heparin Sodium (Porcine) (Heparin 5000 units/ml) 5,000 units EVERY 12 HOURS SUBQ 07/19/19 21:00 08/18/19 20:59 Heparin Sodium (Porcine) (Heparin) 1,000 unit POSTHD INJ 07/21/19 09:00 08/20/19 08:59 Hydralazine HCl (Apresoline) 10 mg TID ORAL 07/21/19 09:00 08/20/19 08:59 07/21/19 17:52 Insulin Aspart (NovoLOG) BEFORE MEALS AND HS SUBQ 07/19/19 16:30 08/18/19 16:29 07/21/19 20:41 Isosorbide Dinitrate (Isordil) 10 mg TID ORAL 07/21/19 09:00 08/20/19 08:59 07/21/19 17:52 Morphine Sulfate (Morphine Sulfate) 1 mg Q4H PRN IVP For Pain 07/19/19 13:15 07/26/19 13:14 Ondansetron HCl (Zofran) 4 mg Q6H PRN IVP Nausea & Vomiting 07/19/19 13:15 08/18/19 13:14 Permethrin (Elimite) 1 applic ONCE ONCE TOPIC 07/27/19 09:00 07/27/19 09:01 Polyethylene Glycol (Miralax) 17 gm HSPRN PRN ORAL Constipation 07/19/19 13:15 08/18/19 13:14 Sodium Chloride 1,000 ml @ 500 mls/hr Q2H PRN IVLG sbp<90 during hd 07/21/19 00:45 08/20/19 00:44 Vitamin B Complex/ Vit C/Folic Acid (Nephrovite) 1 tab DAILY ORAL 07/20/19 09:00 08/19/19 08:59 07/21/19 09:05 Zolpidem Tartrate (Ambien) 5 mg HSPRN PRN ORAL Insomnia 07/19/19 13:15 07/26/19 13:14 Montserrat Martin LEGAL SUMMER INTERN Jul 22, 2019 09:51
--- NOTE | 2019-07-22 11:02 | Nephrology Progress Note ---
Assessment/Plan Status: stable, progressing Assessment/Plan: A/P Covering Dr Santiago until TuesdayJul 23 1) ESRD- noncompliant - had missed HD treatments - STAT HD orders placed as BUn and K+ has worsened 2) Hyperkalemia- recurrent. STAT HD orders placed - HD Tuesday again 3) Scabies?? defer to PCP mgmt 4) Volume Overload- mgmt per cardiology -HD today again Subjective Date patient seen: Jul 22, 2019 Time patient seen: 10:51 ROS Limited/Unobtainable: No Allergies: Coded Allergies: No Known Allergies (Unverified , 07/06/19) Subjective Patient in no overt distress. Hungry Objective Last 24 Hour Vital Signs Date Time Temp Pulse Resp B/P (MAP) Pulse Ox O2 Delivery O2 Flow Rate FiO2 07/22/19 10:06 Nasal Cannula 2.0 07/22/19 09:50 155/69 07/22/19 09:50 155/69 07/22/19 09:50 70 155/69 07/22/19 08:00 70 07/22/19 08:00 97.3 67 20 155/69 (97) 97 07/22/19 06:49 71 21 97 Nasal Cannula 2.0 28 67 22 92 07/22/19 06:39 92 Nasal Cannula 2.0 28 07/22/19 04:00 97.5 69 18 142/63 (89) 98 07/22/19 04:00 67 07/22/19 00:00 97.5 66 18 146/64 (91) 99 07/22/19 00:00 63 07/21/19 21:00 Nasal Cannula 2.0 07/21/19 20:47 71 137/66 07/21/19 20:00 68 07/21/19 20:00 97.3 71 20 137/66 (89) 100 07/21/19 19:55 97 Room Air 21 07/21/19 17:52 152/71 07/21/19 17:52 152/71 07/21/19 16:43 98.4 98 Nasal Cannula 2.0 07/21/19 16:00 97.8 69 22 152/71 (98) 97 07/21/19 16:00 60 07/21/19 13:00 136/62 07/21/19 13:00 136/62 07/21/19 12:00 68 07/21/19 11:58 97.9 68 21 136/62 (86) 98 Intake and Output 07/21/19 07/22/19 19:00 07:00 Intake Total 150 ml 500 ml Balance 150 ml 500 ml Intake Oral 150 ml 500 ml # Voids 2 6 # Bowel Movements 2 2 Laboratory Tests 07/21/19 13:00: Sodium Level 142, Potassium Level 5.7H, Chloride Level 104, Carbon Dioxide Level 24, Anion Gap 14, Blood Urea Nitrogen 98H, Creatinine 8.9H, Estimat Glomerular Filtration Rate 6.1, Glucose Level 110H, Calcium Level 9.7 07/22/19 06:00: Sodium Level 141, Potassium Level 5.8H, Chloride Level 103, Carbon Dioxide Level 23, Anion Gap 15, Blood Urea Nitrogen 107H, Creatinine 9.6H, Estimat Glomerular Filtration Rate 5.6, Glucose Level 131H, Calcium Level 9.9, White Blood Count 5.8, Red Blood Count 2.69L, Hemoglobin 7.8L, Hematocrit 26.7L, Mean Corpuscular Volume 99, Mean Corpuscular Hemoglobin 29.0, Mean Corpuscular Hemoglobin Concent 29.2L, Red Cell Distribution Width 18.5H, Platelet Count 108L , Mean Platelet Volume 5.8L, Neutrophils (%) (Auto) , Lymphocytes (%) (Auto) , Monocytes (%) (Auto) , Eosinophils (%) (Auto) , Basophils (%) (Auto) , Differential Total Cells Counted 100, Neutrophils % (Manual) 51, Lymphocytes % ( Manual) 21, Monocytes % (Manual) 16H, Eosinophils % (Manual) 10H, Basophils % ( Manual) 2, Band Neutrophils 0, Platelet Estimate DecreasedL, Platelet Morphology Normal, Hypochromasia 3+, Anisocytosis 2+ Height (Feet): 5 Height (Inches): 8.00 Weight (Pounds): 218 General Appearance: no apparent distress, alert EENT: normal ENT inspection Neck: normal alignment, supple Cardiovascular: normal rate Respiratory/Chest: lungs clear, normal breath sounds Abdomen: non tender, soft Edema: no edema noted Arm (L), no edema noted Arm (R), no edema noted Leg (L), no edema noted Leg (R), no edema noted Pedal (L), no edema noted Pedal (R), no edema noted Generalized Jae Weir MD Jul 22, 2019 11:02
--- NOTE | 2019-07-22 11:14 | NUR ---
NURSE NOTES: Dr changed schedule for dialysis to today in light of labs. No U/S available today (called 5 times with just busy signal). Paged JOSHUA Martin to notify and spoke with Dr Weir regarding diet advancement--since no U/S available, authorized to advance diet to previous [facility] med with no modifications. Patient agrees to dialysis and confirmed with Colleen at [facility] that they will arrive in 1 hour. Addendum: 07/22/19 at 1807 by Gino Rosales RN Dialyzed without adverse event. Patient up oob multiple times but was able to redirect. Resistant to care, but negotiated with patient to ensure proper delivery of care. Patient currently finsihing dinner and in bed with HOB elevated and alarm on. Bed in lowest locked position.
[2019-07-22 12:00] VITALS: BP 144/64
--- NOTE | 2019-07-22 12:20 | Cardiology Progress Note ---
Assessment/Plan Problem List: (1) Hyperkalemia (2) Mobitz (type) I (Wenckebach's) atrioventricular block (3) First degree AV block (4) CHF (congestive heart failure) (5) ESRD needing dialysis (6) HTN (hypertension) (7) Physical debility Status: not improved, unchanged Status Narrative Mr. Benedict is a 63 yo man with ESRD, on hemodialysis, cardiomyopathy, w/ severely decreased LV systolic function EF 15-20% by last ECHO) . He was admitted w/ volume overload and hyperkalemia after missing dialysis. His troponin is mildly elevated, but this could be due to RF. BNP inaccurate in setting of RF Per the notes, he refused stress testing during the past admission He is now refusing telemetry, refuses exam, and other interventions. Assessment/Plan uptitrate hydralazine and continue isordil for afterload reduction . No adriana/arb, as pt w/ hyperkalemia Fluid removal w/ HD today Difficult to treat due to refusal of care, diagnostic and therapeutic interventions. Pt now agreeable to dialysis, but declines ultrasound and telemetry. Subjective ROS Limited/Unobtainable: No Subjective Cardiology for Dr. Resendiz Pt agitated /angry- refusing telemetry, refusing dialysis Objective Last 24 Hour Vital Signs Date Time Temp Pulse Resp B/P (MAP) Pulse Ox O2 Delivery O2 Flow Rate FiO2 07/22/19 10:06 Nasal Cannula 2.0 07/22/19 09:50 155/69 07/22/19 09:50 155/69 07/22/19 09:50 70 155/69 07/22/19 08:00 70 07/22/19 08:00 97.3 67 20 155/69 (97) 97 07/22/19 06:49 71 21 97 Nasal Cannula 2.0 28 67 22 92 07/22/19 06:39 92 Nasal Cannula 2.0 28 07/22/19 04:00 97.5 69 18 142/63 (89) 98 07/22/19 04:00 67 07/22/19 00:00 97.5 66 18 146/64 (91) 99 07/22/19 00:00 63 07/21/19 21:00 Nasal Cannula 2.0 07/21/19 20:47 71 137/66 07/21/19 20:00 68 07/21/19 20:00 97.3 71 20 137/66 (89) 100 07/21/19 19:55 97 Room Air 21 07/21/19 17:52 152/71 07/21/19 17:52 152/71 07/21/19 16:43 98.4 98 Nasal Cannula 2.0 07/21/19 16:00 97.8 69 22 152/71 (98) 97 07/21/19 16:00 60 07/21/19 13:00 136/62 07/21/19 13:00 13662 Intake and Output 07/21/19 07/22/19 19:00 07:00 Intake Total 150 ml 500 ml Balance 150 ml 500 ml Intake Oral 150 ml 500 ml # Voids 2 6 # Bowel Movements 2 2 Laboratory Tests Test 07/21/19 13:00 07/22/19 06:00 Sodium Level 142 MMOL/L (136-145) 141 MMOL/L (136-145) Potassium Level 5.7 MMOL/L (3.5-5.1) H 5.8 MMOL/L (3.5-5.1) H Chloride Level 104 MMOL/L (98-107) 103 MMOL/L (98-107) Carbon Dioxide Level 24 MMOL/L (21-32) 23 MMOL/L (21-32) Anion Gap 14 mmol/L (5-15) 15 mmol/L (5-15) Blood Urea Nitrogen 98 mg/dL (7-18) H 107 mg/dL (7-18) H Creatinine 8.9 MG/DL (0.55-1.30) H 9.6 MG/DL (0.55-1.30) H Estimat Glomerular Filtration Rate 6.1 mL/min (>60) 5.6 mL/min (>60) Glucose Level 110 MG/DL (74-106) H 131 MG/DL (74-106) H Calcium Level 9.7 MG/DL (8.5-10.1) 9.9 MG/DL (8.5-10.1) White Blood Count 5.8 K/UL (4.8-10.8) Red Blood Count 2.69 M/UL (4.70-6.10) L Hemoglobin 7.8 G/DL (14.2-18.0) L Hematocrit 26.7 % (42.0-52.0) L Mean Corpuscular Volume 99 FL (80-99) Mean Corpuscular Hemoglobin 29.0 PG (27.0-31.0) Mean Corpuscular Hemoglobin Concent 29.2 G/DL (32.0-36.0) L Red Cell Distribution Width 18.5 % (11.6-14.8) H Platelet Count 108 K/UL (150-450) L Mean Platelet Volume 5.8 FL (6.5-10.1) L Neutrophils (%) (Auto) % (45.0-75.0) Lymphocytes (%) (Auto) % (20.0-45.0) Monocytes (%) (Auto) % (1.0-10.0) Eosinophils (%) (Auto) % (0.0-3.0) Basophils (%) (Auto) % (0.0-2.0) Differential Total Cells Counted 100 Neutrophils % (Manual) 51 % (45-75) Lymphocytes % (Manual) 21 % (20-45) Monocytes % (Manual) 16 % (1-10) H Eosinophils % (Manual) 10 % (0-3) H Basophils % (Manual) 2 % (0-2) Band Neutrophils 0 % (0-8) Platelet Estimate Decreased L Platelet Morphology Normal Hypochromasia 3+ Anisocytosis 2+ Microbiology Date/Time Source Procedure Growth Status 07/19/19 13:02 Nasal Nares MRSA Culture - Final NO METHICILLIN RESISTANT STAPH AUREUS... Complete 07/19/19 13:02 Rectum - Final NO CARBAPENEM-RESISTANT ENTEROBACTERI... Complete 07/19/19 13:02 Rectum VRE Culture - Final NO VANCOMYCIN RESISTANT ENTEROCOCCUS ... Complete Dary Gallo MD Jul 22, 2019 12:20
--- NOTE | 2019-07-22 14:22 | Internal Med Progress Note ---
Subjective Physician Name Kuldip Crisostomo Attending Physician Geovany Roblero MD Current Medications Medications (Trade) Dose Ordered Sig/Trav Route PRN Reason Start Time Stop Time Status Last Admin Dose Admin Acetaminophen (Tylenol) 650 mg Q4H PRN ORAL fever 07/19/19 13:15 08/18/19 13:14 07/19/19 18:26 Albuterol/ Ipratropium (Albuterol/ Ipratropium) 3 ml Q6HRT PRN HHN dyspnea 07/19/19 13:15 07/24/19 13:14 07/22/19 06:39 Aspirin (ASA) 81 mg DAILY ORAL 07/20/19 09:00 08/19/19 08:59 07/22/19 09:50 Atorvastatin Calcium (Lipitor) 40 mg BEDTIME ORAL 07/20/19 21:00 08/19/19 20:59 07/21/19 20:34 Carvedilol (Coreg) 12.5 mg EVERY 12 HOURS ORAL 07/19/19 21:00 08/18/19 20:59 07/22/19 09:50 Chlorhexidine Gluconate (Kaylee-Hex 2%) 1 applic DAILY@1999 TOPIC 07/22/19 20:00 08/21/19 19:59 Clonidine HCl (Catapres Tab) 0.1 mg Q4H PRN ORAL SBP>160 07/19/19 13:15 08/18/19 13:14 Dextrose (Dextrose 50%) 25 ml Q30M PRN IV Hypoglycemia 07/19/19 13:15 08/18/19 13:14 Dextrose (Dextrose 50%) 50 ml Q30M PRN IV Hypoglycemia 07/19/19 13:15 08/18/19 13:14 Famotidine (Pepcid) 20 mg DAILY ORAL 07/20/19 09:00 08/19/19 08:59 07/22/19 09:50 Heparin Sodium (Porcine) (Heparin 5000 units/ml) 5,000 units EVERY 12 HOURS SUBQ 07/19/19 21:00 08/18/19 20:59 Heparin Sodium (Porcine) (Heparin) 1,000 unit POSTHD INJ 07/21/19 09:00 08/20/19 08:59 Hydralazine HCl (Apresoline) 10 mg QID ORAL 07/22/19 13:00 08/20/19 08:59 Insulin Aspart (NovoLOG) BEFORE MEALS AND HS SUBQ 07/19/19 16:30 08/18/19 16:29 07/21/19 20:41 Isosorbide Dinitrate (Isordil) 10 mg TID ORAL 07/21/19 09:00 08/20/19 08:59 07/22/19 09:50 Morphine Sulfate (Morphine Sulfate) 1 mg Q4H PRN IVP For Pain 07/19/19 13:15 07/26/19 13:14 Ondansetron HCl (Zofran) 4 mg Q6H PRN IVP Nausea & Vomiting 07/19/19 13:15 08/18/19 13:14 Permethrin (Elimite) 1 applic ONCE ONCE TOPIC 07/27/19 09:00 07/27/19 09:01 Polyethylene Glycol (Miralax) 17 gm HSPRN PRN ORAL Constipation 07/19/19 13:15 08/18/19 13:14 Sodium Chloride 1,000 ml @ 500 mls/hr Q2H PRN IVLG sbp<90 during hd 07/21/19 00:45 08/20/19 00:44 Vitamin B Complex/ Vit C/Folic Acid (Nephrovite) 1 tab DAILY ORAL 07/20/19 09:00 08/19/19 08:59 07/22/19 09:50 Zolpidem Tartrate (Ambien) 5 mg HSPRN PRN ORAL Insomnia 07/19/19 13:15 07/26/19 13:14 Allergies: Coded Allergies: No Known Allergies (Unverified , 07/06/19) ROS Limited/Unobtainable: No Constitutional: Reports: no symptoms HEENT: Reports: no symptoms Cardiovascular: Reports: no symptoms Respiratory: Reports: no symptoms Gastrointestinal/Abdominal: Reports: no symptoms Genitourinary: Reports: no symptoms Neurologic/Psychiatric: Reports: no symptoms Subjective 63 YO M admitted with dyspnea. Now CHF. Cover for Jaquan Roblero. Objective Last Vital Signs Date Time Temp Pulse Resp B/P (MAP) Pulse Ox O2 Delivery O2 Flow Rate FiO2 07/22/19 12:00 66 07/22/19 12:00 97.5 20 144/64 (90) 98 07/22/19 10:06 Nasal Cannula 2.0 07/22/19 06:49 28 Laboratory Tests Test 07/22/19 06:00 White Blood Count 5.8 K/UL (4.8-10.8) Red Blood Count 2.69 M/UL (4.70-6.10) L Hemoglobin 7.8 G/DL (14.2-18.0) L Hematocrit 26.7 % (42.0-52.0) L Mean Corpuscular Volume 99 FL (80-99) Mean Corpuscular Hemoglobin 29.0 PG (27.0-31.0) Mean Corpuscular Hemoglobin Concent 29.2 G/DL (32.0-36.0) L Red Cell Distribution Width 18.5 % (11.6-14.8) H Platelet Count 108 K/UL (150-450) L Mean Platelet Volume 5.8 FL (6.5-10.1) L Neutrophils (%) (Auto) % (45.0-75.0) Lymphocytes (%) (Auto) % (20.0-45.0) Monocytes (%) (Auto) % (1.0-10.0) Eosinophils (%) (Auto) % (0.0-3.0) Basophils (%) (Auto) % (0.0-2.0) Differential Total Cells Counted 100 Neutrophils % (Manual) 51 % (45-75) Lymphocytes % (Manual) 21 % (20-45) Monocytes % (Manual) 16 % (1-10) H Eosinophils % (Manual) 10 % (0-3) H Basophils % (Manual) 2 % (0-2) Band Neutrophils 0 % (0-8) Platelet Estimate Decreased L Platelet Morphology Normal Hypochromasia 3+ Anisocytosis 2+ Sodium Level 141 MMOL/L (136-145) Potassium Level 5.8 MMOL/L (3.5-5.1) H Chloride Level 103 MMOL/L (98-107) Carbon Dioxide Level 23 MMOL/L (21-32) Anion Gap 15 mmol/L (5-15) Blood Urea Nitrogen 107 mg/dL (7-18) H Creatinine 9.6 MG/DL (0.55-1.30) H Estimat Glomerular Filtration Rate 5.6 mL/min (>60) Glucose Level 131 MG/DL (74-106) H Calcium Level 9.9 MG/DL (8.5-10.1) Intake and Output 07/21/19 07/22/19 19:00 07:00 Intake Total 150 ml 500 ml Balance 150 ml 500 ml Intake Oral 150 ml 500 ml # Voids 2 6 # Bowel Movements 2 2 Objective PHYSICAL EXAMINATION: GENERAL: The patient is a well-developed and well-nourished male, in no apparent distress. HEENT: Eyes, pupils are equal and responsive to light and accommodation. Extraocular movements are intact. NECK: Supple without lymphadenopathy. CHEST: Lungs are clear to auscultation bilaterally without wheezes or rales. CARDIOVASCULAR: Regular rhythm and rate. S1 and S2 are normal without murmurs, rubs, or gallops. ABDOMEN: Soft, nontender, and nondistended. Positive bowel sounds. No evidence of hepatosplenomegaly. Currently, no rebound or guarding noted. EXTREMITIES: Negative for clubbing, cyanosis, or edema. RECTAL/GENITAL: Refused. NEUROLOGIC: Cranial nerves II through XII are grossly intact without focal deficits. Motor strength is 5/5 bilaterally. Deep tendon reflexes are 2+ plantar. Assessment/Plan Assessment/Plan ASSESSMENT: This is a 63-year-old male. 1. Dyspnea. 2. Congestive heart failure. 3. End-stage renal disease. 4. Diabetes type 2. 5. Diabetic gastroparesis. 6. Diabetic neuropathy. 7. Gastroesophageal reflux disease. 8. Hypertension. 9. Kentodbo-hn-ejkvbb mitral valve regurgitation. 10. Sgmsnews-yq-ziheqa tricuspid valve regurgitation. 11. Pulmonary hypertension. 12. Anemia of chronic renal disease. TREATMENT: 1. Dyspnea. A Pulmonary consultation has been obtained with Dr. Christy Mercer. We will follow recommendations of Pulmonary. Dyspnea is probably secondary to volume overload. We will follow recommendations of Pulmonary. 2. Congestive heart failure. This is probably secondary to volume overload. A Cardiology consultation is pending with Dr. Nikko Resendiz. Serial troponin levels will be performed. Serial BNPs will be performed. 3. Diabetes type 2. NovoLog sliding scale has been instituted. 4. Diabetic gastroparesis. 5. Diabetic neuropathy. 6. Gastroesophageal reflux disease. Continue Pepcid as above. 7. Hypertension. Continue clonidine and carvedilol as above. 8. Fjrbjjao-bf-yytxvo mitral valve regurgitation. 9. Iovymswy-wi-jdqyfw tricuspid valve regurgitation. 10. Pulmonary hypertension. 11. Anemia of chronic renal disease. 12. ESRD S/P hemodialysis 9/29/19. See nephrology note Kuldip Crisostomo MD Jul 22, 2019 14:22
--- NOTE | 2019-07-22 15:25 | Cardiology Report ---
APPROVED REPORT EKG Measurement Heart [id number] [id number] Sinus rhythm with 1st degree AV block Nonspecific ST and T wave abnormality Abnormal ECG
[2019-07-22 16:00] VITALS: BP 106/59
--- NOTE | 2019-07-22 19:42 | NUR ---
NURSE NOTES: Received pt from ANTONY Jasso. Pt awake, alert, and talkative. Bed in lowest position. Call light within reach. Bed alarm on. Will continue to monitor.
[2019-07-22 20:00] VITALS: BP 126/57
[2019-07-22] MEDS ORDERED: Dyna-Hex 2% Top Sol 2oz TOPIC SCH ×2 (20:00→21:00)
--- NOTE | 2019-07-22 20:22 | NUR ---
NURSE NOTES: Called and left a message with Dr. Roblero asking for a cough syruip for the pts productive cough. Awaiting call back.
[2019-07-22] MEDS: Atorvastatin 20mg tab ORAL SCH (20:24)
--- NOTE | 2019-07-22 20:44 | NUR ---
NURSE NOTES: Dr. Roblero gave the following orders: - Robitussin 10cc po q6 prn Will input order and will continue to monitor.
[2019-07-22] MEDS ORDERED: Guaifenesin/DM 10ml syrup ORAL PRN (20:45)
[2019-07-23 04:00] VITALS: BP 146/62
[2019-07-23] MEDS: NovoLOG Insulin Flexpen SUBQ SCH ×4 (05:34→20:39)
--- NOTE | 2019-07-23 07:25 | NUR ---
NURSE NOTES: Received report from ANTONY Simental. Patient in bed with aox4 and calm, cooperative. Bed alarm on and all fall precautions in effect. Contact precautions cont'd. Call banks and urinal in reach. O2 NC on and VSS. Bed in low, locked position.
--- NOTE | 2019-07-23 07:31 | NUR ---
HAND-OFF: Report given to ANTONY Jasso. Pt stable.
[2019-07-23 07:47] LABS: ANION GAP 14 mmol/L (5-15); BLOOD UREA NITROGEN 88 mg/dL (7-18); CALCIUM 9.9 MG/DL (8.5-10.1); CARBON DIOXIDE 24 MMOL/L (21-32); CHLORIDE 103 MMOL/L (98-107); CREATININE 7.8 MG/DL (0.55-1.30); POTASSIUM 5.3 MMOL/L (3.5-5.1); SODIUM 141 MMOL/L (136-145)
[2019-07-23 07:49] LABS: HEMATOCRIT 24.2 % (42.0-52.0); HEMOGLOBIN 7.4 G/DL (14.2-18.0); MEAN CORPUSCULAR VOLUME 99 FL (80-99); PLATELET COUNT 128 K/UL (150-450); RED BLOOD COUNT 2.45 M/UL (4.70-6.10); RED CELL DISTRIBUTION WIDTH 18.7 % (11.6-14.8); WHITE BLOOD COUNT 5.2 K/UL (4.8-10.8)
[2019-07-23 08:00] VITALS: BP 139/57
[2019-07-23] MEDS: Heparin 5000 units/ml inj SUBQ SCH ×2 (09:00→20:35)
[2019-07-23] MEDS: HydrALAZINE 10mg Tab ORAL SCH ×5 (09:02→20:34)
[2019-07-23] MEDS: Aspirin Baby 81mg ORAL SCH (09:02)
[2019-07-23] MEDS: Nephrovite tab (Rena-Vite) ORAL SCH (09:02)
[2019-07-23] MEDS: Carvedilol 12.5mg tab ORAL SCH ×2 (09:03→20:34)
--- NOTE | 2019-07-23 11:00 | NUR ---
CASE MANAGEMENT: REVIEW 07/23/2019 SI: FLUID OVERLOAD . ANEMIA . SCABIES T 98.1 HR 73 RR 22 B/P 146/92 SATS 100% ON RA HGB 7.4 HCT 24.2 PLT 128 K 5.3 BUN 88 CR 7.8 IS: COREG PO Q12H LIPITOR PO QHS ASA PO QD PEPCID PO QD NEPHROVITE PO QD INSULIN ASPART SUBQ AC/HS TELE STATUS DCP: PATIENT IS FROM [facility]
--- NOTE | 2019-07-23 11:04 | Pulmonology Progress Note ---
Assessment/Plan Problems: (1) Pulmonary edema (2) ESRD needing dialysis (3) Pleural effusion, right (4) Noncompliance with renal dialysis (5) Hyperkalemia (6) Anemia (7) Diabetes mellitus (8) HTN (hypertension) (9) Physical debility Assessment/Plan K is slightly higher HD by nephrology yesterday sliding scale symptomatic treatment pt.ot resume medication got Ivermectin and Elimite on Tuesday Subjective ROS Limited/Unobtainable: No Interval Events: doing better, HD yesterday Constitutional: Reports: no symptoms HEENT: Repors: no symptoms Respiratory: Reports: no symptoms Allergies: Coded Allergies: No Known Allergies (Unverified , 07/06/19) Objective Last 24 Hour Vital Signs Date Time Temp Pulse Resp B/P (MAP) Pulse Ox O2 Delivery O2 Flow Rate FiO2 07/23/19 09:03 79 139/57 07/23/19 09:02 139/57 07/23/19 09:02 139/57 07/23/19 09:00 Room Air 07/23/19 08:00 71 07/23/19 08:00 98.1 79 20 139/57 (84) 100 07/23/19 04:00 74 07/23/19 04:00 98.6 73 22 146/62 (90) 100 07/23/19 00:00 75 07/22/19 21:00 Room Air 07/22/19 20:57 83 20 96 Nasal Cannula 2.0 28 77 20 94 07/22/19 20:48 94 Nasal Cannula 2.0 28 07/22/19 20:25 126/57 07/22/19 20:25 75 126/57 07/22/19 20:00 69 07/22/19 20:00 97.7 75 18 126/57 (80) 98 07/22/19 17:24 134/61 07/22/19 17:24 134/61 07/22/19 16:00 78 07/22/19 16:00 97.5 72 20 106/59 (75) 98 07/22/19 15:13 116/84 07/22/19 13:00 116/84 07/22/19 12:00 66 07/22/19 12:00 66 07/22/19 12:00 97.5 64 20 144/64 (90) 98 Intake and Output 07/22/19 07/23/19 19:00 07:00 Intake Total 390 ml Balance 390 ml Intake Oral 390 ml # Voids 1 General Appearance: WD/WN HEENT: normocephalic, atraumatic Respiratory/Chest: chest wall non-tender, lungs clear Cardiovascular: normal peripheral pulses, normal rate Abdomen: normal bowel sounds, soft, non tender Genitourinary: normal external genitalia Extremities: no clubbing Skin: no lesions Neurologic/Psychiatric: forming tube selector II-XII grossly normal Laboratory Tests 07/23/19 06:48: White Blood Count 5.2, Red Blood Count 2.45L, Hemoglobin 7.4L, Hematocrit 24.2L , Mean Corpuscular Volume 99, Mean Corpuscular Hemoglobin 30.0, Mean Corpuscular Hemoglobin Concent 30.4L, Red Cell Distribution Width 18.7H, Platelet Count 128L, Mean Platelet Volume 5.4L, Neutrophils (%) (Auto) , Lymphocytes (%) (Auto) , Monocytes (%) (Auto) , Eosinophils (%) (Auto) , Basophils (%) (Auto) , Differential Total Cells Counted 100, Neutrophils % ( Manual) 68, Lymphocytes % (Manual) 15L, Monocytes % (Manual) 10, Eosinophils % ( Manual) 6H, Basophils % (Manual) 1, Band Neutrophils 0, Platelet Estimate DecreasedL, Platelet Morphology Normal, Hypochromasia 1+, Anisocytosis 1+, Ovalocytes 1+, Sodium Level 141, Potassium Level 5.3H, Chloride Level 103, Carbon Dioxide Level 24, Anion Gap 14, Blood Urea Nitrogen 88H, Creatinine 7.8H , Estimat Glomerular Filtration Rate 7.1, Glucose Level 86, Calcium Level 9.9 Current Medications Medications (Trade) Dose Ordered Sig/Trav Route PRN Reason Start Time Stop Time Status Last Admin Dose Admin Acetaminophen (Tylenol) 650 mg Q4H PRN ORAL fever 07/19/19 13:15 08/18/19 13:14 07/19/19 18:26 Albuterol/ Ipratropium (Albuterol/ Ipratropium) 3 ml Q6HRT PRN HHN dyspnea 07/19/19 13:15 07/24/19 13:14 07/22/19 20:57 Aspirin (ASA) 81 mg DAILY ORAL 07/20/19 09:00 08/19/19 08:59 07/23/19 09:02 Atorvastatin Calcium (Lipitor) 40 mg BEDTIME ORAL 07/20/19 21:00 08/19/19 20:59 07/22/19 20:24 Carvedilol (Coreg) 12.5 mg EVERY 12 HOURS ORAL 07/19/19 21:00 08/18/19 20:59 07/23/19 09:03 Chlorhexidine Gluconate (Kaylee-Hex 2%) 1 applic DAILY@2000 TOPIC 07/22/19 21:00 08/21/19 20:59 07/22/19 20:25 Clonidine HCl (Catapres Tab) 0.1 mg Q4H PRN ORAL SBP>160 07/19/19 13:15 08/18/19 13:14 Dextrose (Dextrose 50%) 25 ml Q30M PRN IV Hypoglycemia 07/19/19 13:15 08/18/19 13:14 Dextrose (Dextrose 50%) 50 ml Q30M PRN IV Hypoglycemia 07/19/19 13:15 08/18/19 13:14 Famotidine (Pepcid) 20 mg DAILY ORAL 07/20/19 09:00 08/19/19 08:59 07/23/19 09:02 Guaifenesin/ Dextromethorphan (Robitussin DM Syrup) 10 ml Q6H PRN ORAL For Cough 07/22/19 20:45 08/21/19 20:44 Heparin Sodium (Porcine) (Heparin 5000 units/ml) 5,000 units EVERY 12 HOURS SUBQ 07/19/19 21:00 08/18/19 20:59 Heparin Sodium (Porcine) (Heparin) 1,000 unit POSTHD INJ 07/21/19 09:00 08/20/19 08:59 Hydralazine HCl (Apresoline) 10 mg QID ORAL 07/22/19 13:00 08/20/19 08:59 07/23/19 09:02 Insulin Aspart (NovoLOG) BEFORE MEALS AND HS SUBQ 07/19/19 16:30 08/18/19 16:29 07/22/19 20:29 Isosorbide Dinitrate (Isordil) 10 mg TID ORAL 07/21/19 09:00 08/20/19 08:59 07/23/19 09:02 Morphine Sulfate (Morphine Sulfate) 1 mg Q4H PRN IVP For Pain 07/19/19 13:15 07/26/19 13:14 Ondansetron HCl (Zofran) 4 mg Q6H PRN IVP Nausea & Vomiting 07/19/19 13:15 08/18/19 13:14 Permethrin (Elimite) 1 applic ONCE ONCE TOPIC 07/27/19 09:00 07/27/19 09:01 Polyethylene Glycol (Miralax) 17 gm HSPRN PRN ORAL Constipation 07/19/19 13:15 08/18/19 13:14 Sodium Chloride 1,000 ml @ 500 mls/hr Q2H PRN IVLG sbp<90 during hd 07/21/19 00:45 08/20/19 00:44 Vitamin B Complex/ Vit C/Folic Acid (Nephrovite) 1 tab DAILY ORAL 07/20/19 09:00 08/19/19 08:59 07/23/19 09:02 Zolpidem Tartrate (Ambien) 5 mg HSPRN PRN ORAL Insomnia 07/19/19 13:15 07/26/19 13:14 07/22/19 20:25 Christy Mercer MD Jul 23, 2019 11:04
--- NOTE | 2019-07-23 11:26 | Nephrology Progress Note ---
Assessment/Plan Problem List: (1) ESRD needing dialysis (2) Anemia (3) HTN (hypertension) (4) Noncompliance with renal dialysis (5) CHF (congestive heart failure) (6) Hyperkalemia (7) Diabetes mellitus Plan HD tomorrow Discussed with HD RN start Epogen follow labs Subjective Subjective feels ok Objective Objective Last 24 Hour Vital Signs Date Time Temp Pulse Resp B/P (MAP) Pulse Ox O2 Delivery O2 Flow Rate FiO2 07/23/19 09:03 79 139/57 07/23/19 09:02 139/57 07/23/19 09:02 139/57 07/23/19 09:00 Room Air 07/23/19 08:00 71 07/23/19 08:00 98.1 79 20 139/57 (84) 100 07/23/19 04:00 74 07/23/19 04:00 98.6 73 22 146/62 (90) 100 07/23/19 00:00 75 07/22/19 21:00 Room Air 07/22/19 20:57 83 20 96 Nasal Cannula 2.0 28 77 20 94 07/22/19 20:48 94 Nasal Cannula 2.0 28 07/22/19 20:25 126/57 07/22/19 20:25 75 126/57 07/22/19 20:00 69 07/22/19 20:00 97.7 75 18 126/57 (80) 98 07/22/19 17:24 134/61 07/22/19 17:24 134/61 07/22/19 16:00 78 07/22/19 16:00 97.5 72 20 106/59 (75) 98 07/22/19 15:13 116/84 07/22/19 13:00 116/84 07/22/19 12:00 66 07/22/19 12:00 66 07/22/19 12:00 97.5 64 20 144/64 (90) 98 Intake and Output 07/22/19 07/23/19 19:00 07:00 Intake Total 390 ml Balance 390 ml Intake Oral 390 ml # Voids 1 Laboratory Tests 07/23/19 06:48: White Blood Count 5.2, Red Blood Count 2.45L, Hemoglobin 7.4L, Hematocrit 24.2L , Mean Corpuscular Volume 99, Mean Corpuscular Hemoglobin 30.0, Mean Corpuscular Hemoglobin Concent 30.4L, Red Cell Distribution Width 18.7H, Platelet Count 128L, Mean Platelet Volume 5.4L, Neutrophils (%) (Auto) , Lymphocytes (%) (Auto) , Monocytes (%) (Auto) , Eosinophils (%) (Auto) , Basophils (%) (Auto) , Differential Total Cells Counted 100, Neutrophils % ( Manual) 68, Lymphocytes % (Manual) 15L, Monocytes % (Manual) 10, Eosinophils % ( Manual) 6H, Basophils % (Manual) 1, Band Neutrophils 0, Platelet Estimate DecreasedL, Platelet Morphology Normal, Hypochromasia 1+, Anisocytosis 1+, Ovalocytes 1+, Sodium Level 141, Potassium Level 5.3H, Chloride Level 103, Carbon Dioxide Level 24, Anion Gap 14, Blood Urea Nitrogen 88H, Creatinine 7.8H , Estimat Glomerular Filtration Rate 7.1, Glucose Level 86, Calcium Level 9.9 Height (Feet): 5 Height (Inches): 8.00 Weight (Pounds): 226 Cardiovascular: normal rate Respiratory/Chest: lungs clear Extremities: moderate edema Justin Hutson MD Jul 23, 2019 11:26
[2019-07-23 11:59] VITALS: BP 134/62
--- NOTE | 2019-07-23 12:48 | NUR ---
NURSE NOTES: Called Mena (patient's spouse/SO @ [phone]) to notify of upcoming room change plan with transfer to Med-Surg unit. Also discussed patient's high fall risk in light of his fall 07/21. Answered questions to explain circumstances of fall and utilized active listening and emotional support in providing answers to all . Patient on phone with , too. Patient and family had no further questions at this time.
--- NOTE | 2019-07-23 13:00 | NUR ---
NURSE NOTES: Patient tolerated 75% of lunch and continued with calm, cooperative affect.No sign of cardiac or respiratory distress. Telemetry monitoring dced as patient is transferred to med-surg service per Dr Payne and full charge bookkeeper. See flowsheet for rhythm at noon. Bed in lowest , locked position with call banks in reach and fall risk score increased to reflect impaired mobility from bed to toilet for BM this morning. Patient very unsteady with weakness and required max assist x2 for transfer to toilet and back to bed. Bed alarm on and patient agreed to continue to call for help when need to get oob. Continuing with close monitoring with yellow socks and gown and all fall precautions in place.
[2019-07-23 15:24] VITALS: BP 140/57
--- NOTE | 2019-07-23 15:33 | NUR ---
NURSE NOTES:WOUND CARE NOTES: Pt presented on admission with scabies and was treated with Elimite. dry scaly rash noted but pt denied itching.Skin assessment of bony prominences completed. Sacrum, both heels back and elbows are pink without any evidence of skin breakdown.
[2019-07-23] MEDS ORDERED: LORazepam 1mg tab ORAL PRN ×2 (16:30→18:30)
--- NOTE | 2019-07-23 16:35 | NUR ---
NURSE NOTES: Transferred patient to [phone] . Called family to inform of transfer. Gave report to ANTONY Carlson. Patient breathing easily on 3L NC and aox4 with head under the covers but stated that he is "fine". Removed covers momentarily RNs and patient could meet and visually assess. Confirmed with patient and RN that all belongings with patient at time of transfer. Chart with viscose cellar charge hand, insulin pen in med room. Bed in lowest , locked postion and contact and fall precautions cont'd.
--- NOTE | 2019-07-23 16:37 | Diagnostic Imaging Report ---
Indication: Abdominal pain Technique: Moreno-scale and duplex images of the upper abdomen were obtained Comparison: none Findings: Exam is limited due to patient body habitus and condition Gallbladder incompletely distended. No definite calculi. The gallbladder wall is borderline thickened, measures 3 mm thick. Sonographic Marie's sign is negative. Common bile duct measures for mm in diameter. No intrahepatic biliary ductal dilatation. Liver demonstrates normal echogenicity, no focal abnormality. It is borderline enlarged. No surface nodularity. Portal vein and hepatic veins are patent. Pancreas is incompletely visualized due to overlying bowel gas, visualized portions are unremarkable. The spleen is enlarged, measuring 16.2 cm long axis dimension Left kidney measures 8.7 cm in length. Right kidney measures 8.7 cm length. Both kidneys demonstrate increased echogenicity. There is no hydronephrosis. No focal abnormality . Abdominal aorta is partially obscured by bowel gas, visualized portions are non-aneurysmal . There is distention of the hepatic veins and inferior vena cava Impression: Limited exam, as described, with limited visualization of the abdominal aorta and pancreas. Left kidney also not seen well Hepatomegaly Splenomegaly Mild gallbladder wall thickening. No gallstones. Wall thickening may be due to hepatocellular disease, but the possibility of acute acalculous cholecystitis should also be considered. Consider nuclear medicine hepatobiliary scanning for further evaluation if clinically indicated Evidence of central venous hypertension, with distention of the hepatic veins and inferior vena cava Increased renal echogenicity, consistent with chronic medical renal disease
[2019-07-23 17:00] VITALS: BP 139/64
[2019-07-23] MEDS ORDERED: Heparin Sod 1000 units/ml 10ml IV PRN (18:00)
[2019-07-23] MEDS ORDERED: Heparin 5000 units/ml inj INJ PRN (18:30)
[2019-07-23] MEDS ORDERED: Guaifenesin/DM 10ml syrup ORAL PRN (18:30)
--- NOTE | 2019-07-23 19:51 | NUR ---
HAND-OFF: Report given to Mikal HARDY.
[2019-07-23 20:00] VITALS: BP 131/68
--- NOTE | 2019-07-23 20:00 | NUR ---
NURSE NOTES: Pt received in bed, aaox4, R chest permacath dressing c/d/i. On o2 via NC at 3LPM. No acute cardiorespiratory distress at this time. Call light in reach, instructed to call for assistance, verbalized understanding. Will continue to monitor.
[2019-07-23] MEDS: Dyna-Hex 2% Top Sol 2oz TOPIC SCH (20:31)
[2019-07-23] MEDS: Atorvastatin 20mg tab ORAL SCH (20:35)
[2019-07-23] MEDS: Epoetin Alfa-EPBX(ESRD on dialysis)10,000 unit/ml vial SUBQ SCH (20:35)
--- NOTE | 2019-07-23 20:36 | Internal Med Progress Note ---
Subjective Date of Service: Jul 23, 2019 Physician Name Crisostomo,Kuldip Attending Physician Geovany Roblero MD Current Medications Medications (Trade) Dose Ordered Sig/Trav Route PRN Reason Start Time Stop Time Status Last Admin Dose Admin Acetaminophen (Tylenol) 650 mg Q4H PRN ORAL T>100.5 07/23/19 18:30 08/18/19 18:29 Albuterol/ Ipratropium (Albuterol/ Ipratropium) 3 ml Q6H PRN HHN dyspnea 07/23/19 18:30 07/28/19 18:29 Aspirin (ASA) 81 mg DAILY ORAL 07/24/19 09:00 08/19/19 08:59 Atorvastatin Calcium (Lipitor) 40 mg BEDTIME ORAL 07/23/19 21:00 08/19/19 20:59 Carvedilol (Coreg) 12.5 mg EVERY 12 HOURS ORAL 07/23/19 21:00 08/18/19 20:59 Chlorhexidine Gluconate (Kaylee-Hex 2%) 1 applic DAILY@2000 TOPIC 07/23/19 20:00 08/21/19 20:59 Clonidine HCl (Catapres Tab) 0.1 mg Q4H PRN ORAL SBP>160mmHg 07/23/19 21:15 08/18/19 13:14 Dextrose (Dextrose 50%) 25 ml Q30M PRN IV Hypoglycemia 07/23/19 18:15 08/18/19 13:14 Dextrose (Dextrose 50%) 50 ml Q30M PRN IV Hypoglycemia 07/23/19 18:15 08/18/19 13:14 Epoetin Garrett (Epoetin Garrett(ESRD on dialysis)) 10,000 unit TUE-TUE-TUE SUBQ 07/23/19 21:00 08/22/19 20:59 Escitalopram Oxalate (Lexapro) 10 mg DAILY ORAL 07/24/19 09:00 08/23/19 08:59 Famotidine (Pepcid) 20 mg DAILY ORAL 07/24/19 09:00 08/19/19 08:59 Guaifenesin/ Dextromethorphan (Robitussin DM Syrup) 10 ml Q6H PRN ORAL For Cough 07/23/19 18:30 08/21/19 18:29 Heparin Sodium (Porcine) (Heparin 5000 units/ml) 5,000 units EVERY 12 HOURS SUBQ 07/23/19 21:00 08/18/19 20:59 Heparin Sodium (Porcine) (Heparin 5000 units/ml) 5,000 units POSTHD PRN INJ POST HD 07/23/19 18:30 07/25/19 23:59 Heparin Sodium (Porcine) (Heparin Sod 1000 units/ml 10ml) 2,000 unit ONCE PRN IV FOR HD USE 07/23/19 18:00 07/25/19 23:59 Hydralazine HCl (Apresoline) 10 mg QID ORAL 07/23/19 18:00 08/20/19 08:59 Insulin Aspart (NovoLOG) BEFORE MEALS AND HS SUBQ 07/23/19 21:00 08/18/19 16:29 Isosorbide Dinitrate (Isordil) 10 mg TID ORAL 07/24/19 09:00 08/23/19 08:59 Lorazepam (Ativan) 1 mg Q6H PRN ORAL For Anxiety 07/23/19 18:30 07/30/19 18:29 Morphine Sulfate (Morphine Sulfate) 1 mg Q4H PRN IVP PAIN 4-10 07/23/19 18:30 07/26/19 18:29 Ondansetron HCl (Zofran) 4 mg Q6H PRN IVP Nausea & Vomiting 07/23/19 18:30 08/18/19 18:29 Permethrin (Elimite) 1 applic ONCE ONCE TOPIC 07/27/19 09:00 07/27/19 09:01 Polyethylene Glycol (Miralax) 17 gm HSPRN PRN ORAL Constipation 07/23/19 21:00 08/22/19 20:59 Sodium Chloride 1,000 ml @ 500 mls/hr Q2H PRN IVLG sbp<90 during hd 07/23/19 18:30 08/22/19 18:29 Vitamin B Complex/ Vit C/Folic Acid (Nephrovite) 1 tab DAILY ORAL 07/24/19 09:00 08/19/19 08:59 Zolpidem Tartrate (Ambien) 5 mg HSPRN PRN ORAL Insomnia 07/24/19 21:00 07/26/19 20:59 Allergies: Coded Allergies: No Known Allergies (Unverified , 07/06/19) ROS Limited/Unobtainable: No Constitutional: Reports: no symptoms HEENT: Reports: no symptoms Cardiovascular: Reports: no symptoms Respiratory: Reports: no symptoms Gastrointestinal/Abdominal: Reports: no symptoms Genitourinary: Reports: no symptoms Neurologic/Psychiatric: Reports: no symptoms Subjective 63 YO M admitted with dyspnea. Now CHF. Cover for Jaquan garibay-Dr Roblero. Objective Last Vital Signs Date Time Temp Pulse Resp B/P (MAP) Pulse Ox O2 Delivery O2 Flow Rate FiO2 07/23/19 18:00 140/57 07/23/19 17:00 98.1 76 18 100 07/23/19 09:05 Nasal Cannula 2.0 28 Laboratory Tests Test 07/23/19 06:48 White Blood Count 5.2 K/UL (4.8-10.8) Red Blood Count 2.45 M/UL (4.70-6.10) L Hemoglobin 7.4 G/DL (14.2-18.0) L Hematocrit 24.2 % (42.0-52.0) L Mean Corpuscular Volume 99 FL (80-99) Mean Corpuscular Hemoglobin 30.0 PG (27.0-31.0) Mean Corpuscular Hemoglobin Concent 30.4 G/DL (32.0-36.0) L Red Cell Distribution Width 18.7 % (11.6-14.8) H Platelet Count 128 K/UL (150-450) L Mean Platelet Volume 5.4 FL (6.5-10.1) L Neutrophils (%) (Auto) % (45.0-75.0) Lymphocytes (%) (Auto) % (20.0-45.0) Monocytes (%) (Auto) % (1.0-10.0) Eosinophils (%) (Auto) % (0.0-3.0) Basophils (%) (Auto) % (0.0-2.0) Differential Total Cells Counted 100 Neutrophils % (Manual) 68 % (45-75) Lymphocytes % (Manual) 15 % (20-45) L Monocytes % (Manual) 10 % (1-10) Eosinophils % (Manual) 6 % (0-3) H Basophils % (Manual) 1 % (0-2) Band Neutrophils 0 % (0-8) Platelet Estimate Decreased L Platelet Morphology Normal Hypochromasia 1+ Anisocytosis 1+ Ovalocytes 1+ Sodium Level 141 MMOL/L (136-145) Potassium Level 5.3 MMOL/L (3.5-5.1) H Chloride Level 103 MMOL/L (98-107) Carbon Dioxide Level 24 MMOL/L (21-32) Anion Gap 14 mmol/L (5-15) Blood Urea Nitrogen 88 mg/dL (7-18) H Creatinine 7.8 MG/DL (0.55-1.30) H Estimat Glomerular Filtration Rate 7.1 mL/min (>60) Glucose Level 86 MG/DL (74-106) Calcium Level 9.9 MG/DL (8.5-10.1) Intake and Output 07/22/19 07/23/19 19:00 07:00 Intake Total 390 ml Balance 390 ml Intake Oral 390 ml # Voids 1 Objective PHYSICAL EXAMINATION: GENERAL: The patient is a well-developed and well-nourished male, in no apparent distress. HEENT: Eyes, pupils are equal and responsive to light and accommodation. Extraocular movements are intact. NECK: Supple without lymphadenopathy. CHEST: Lungs are clear to auscultation bilaterally without wheezes or rales. CARDIOVASCULAR: Regular rhythm and rate. S1 and S2 are normal without murmurs, rubs, or gallops. ABDOMEN: Soft, nontender, and nondistended. Positive bowel sounds. No evidence of hepatosplenomegaly. Currently, no rebound or guarding noted. EXTREMITIES: Negative for clubbing, cyanosis, or edema. RECTAL/GENITAL: Refused. NEUROLOGIC: Cranial nerves II through XII are grossly intact without focal deficits. Motor strength is 5/5 bilaterally. Deep tendon reflexes are 2+ plantar. Assessment/Plan Assessment/Plan ASSESSMENT: This is a 63-year-old male. 1. Dyspnea. 2. Congestive heart failure. 3. End-stage renal disease. 4. Diabetes type 2. 5. Diabetic gastroparesis. 6. Diabetic neuropathy. 7. Gastroesophageal reflux disease. 8. Hypertension. 9. Edepspga-hk-jjbxfg mitral valve regurgitation. 10. Oelnmxqe-rh-kaujfd tricuspid valve regurgitation. 11. Pulmonary hypertension. 12. Anemia of chronic renal disease. TREATMENT: 1. Dyspnea. A Pulmonary consultation has been obtained with Dr. Christy Mercer. We will follow recommendations of Pulmonary. Dyspnea is probably secondary to volume overload. We will follow recommendations of Pulmonary. 2. Congestive heart failure. This is probably secondary to volume overload. A Cardiology consultation is pending with Dr. Nikko Resendiz. Serial troponin levels will be performed. Serial BNPs will be performed. 3. Diabetes type 2. NovoLog sliding scale has been instituted. 4. Diabetic gastroparesis. 5. Diabetic neuropathy. 6. Gastroesophageal reflux disease. Continue Pepcid as above. 7. Hypertension. Continue clonidine and carvedilol as above. 8. Cbxyzaej-ln-xdfpal mitral valve regurgitation. 9. Datrerby-lb-omjasz tricuspid valve regurgitation. 10. Pulmonary hypertension. 11. Anemia of chronic renal disease. 12. ESRD S/P hemodialysis 07/22/19. See nephrology note Kuldip Crisostomo MD Jul 23, 2019 20:36
[2019-07-23] MEDS ORDERED: Epoetin Alfa-EPBX(ESRD on dialysis)10,000 unit/ml vial SUBQ SCH (21:00)
[2019-07-23] MEDS ORDERED: Miralax 17gm pkt ORAL PRN (21:00)
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
[2019-07-24] VITALS: BP 119/50
[2019-07-24 04:00] VITALS: BP 132/70
[2019-07-24] MEDS ORDERED: Heparin Sod 1000 units/ml 10ml IV PRN (06:00)
[2019-07-24] MEDS ORDERED: Heparin 5000 units/ml inj INJ PRN (06:00)
[2019-07-24 06:15] LABS: HEMATOCRIT 24.4 % (42.0-52.0); HEMOGLOBIN 7.5 G/DL (14.2-18.0); MEAN CORPUSCULAR VOLUME 99 FL (80-99); PLATELET COUNT 126 K/UL (150-450); RED BLOOD COUNT 2.45 M/UL (4.70-6.10); RED CELL DISTRIBUTION WIDTH 18.7 % (11.6-14.8); WHITE BLOOD COUNT 4.4 K/UL (4.8-10.8)
[2019-07-24] MEDS: NovoLOG Insulin Flexpen SUBQ SCH ×4 (06:30→21:36)
[2019-07-24 06:41] LABS: ANION GAP 12 mmol/L (5-15); BLOOD UREA NITROGEN 95 mg/dL (7-18); CALCIUM 9.9 MG/DL (8.5-10.1); CARBON DIOXIDE 26 MMOL/L (21-32); CHLORIDE 104 MMOL/L (98-107); CREATININE 8.8 MG/DL (0.55-1.30); PHOSPHORUS 7.5 MG/DL (2.5-4.9); POTASSIUM 5.7 MMOL/L (3.5-5.1); SODIUM 142 MMOL/L (136-145)
[2019-07-24 06:50] LABS: % IRON SATURATION 23 % (15-50); IRON 38 ug/dL (50-175); TOTAL IRON BINDING CAPACITY 167 ug/dL (250-450)
--- NOTE | 2019-07-24 07:10 | NUR ---
NURSE NOTES: HANDOFF RECEIVED FROM ANTONY JONES. PATIENT RECEIVED AWAKE AND ALERT AND ABLE TO MAKE NEEDS KNOWN. PATIENT IV SITE IS CLEAN DRY AND INTACT, SALINE LOCKED. NO VISIBLE SIGNS OF DISTRESS. BED IN THE LOW AND LOCKED POSITION. PATIENT STATED THAT HE "FEELS WEAK" CALL LIGHT WITHIN REACH, WILL CONTINUE TO MONITOR.
--- NOTE | 2019-07-24 07:34 | NUR ---
HAND-OFF: Report given to Khoa HARDY.
[2019-07-24 08:00] VITALS: BP 132/66
[2019-07-24] MEDS: Heparin 5000 units/ml inj SUBQ SCH ×2 (08:05→21:00)
[2019-07-24] MEDS: Carvedilol 12.5mg tab ORAL SCH ×2 (08:06→21:32)
[2019-07-24] MEDS: HydrALAZINE 10mg Tab ORAL SCH ×3 (08:06→18:08)
[2019-07-24] MEDS: Nephrovite tab (Rena-Vite) ORAL SCH (08:56)
[2019-07-24] MEDS: Aspirin Baby 81mg ORAL SCH (08:56)
[2019-07-24] MEDS: Morphine Sulfate 2mg/ml Inj(IV/IM USE ONLY) IVP PRN (08:56)
[2019-07-24 12:00] VITALS: BP 122/58
[2019-07-24] MEDS ORDERED: MIRALAX119 GM ORAL (13:32)
[2019-07-24] MEDS ORDERED: APRESOLINE10 MG ORAL (13:32)
[2019-07-24] MEDS ORDERED: LEXAPRO10 MG ORAL (13:32)
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
--- NOTE | 2019-07-24 13:38 | NUR ---
*-* DISCHARGE PLANNING /*-* PATIENT HAS BEEN REFERRED BACK TO: [facility] P: [phone] F: [phone]
--- NOTE | 2019-07-24 13:53 | NUR ---
RD ASSESSMENT & RECOMMENDATIONS SEE CARE ACTIVITY FOR COMPLETE ASSESSMENT DAILY ESTIMATED NEEDS: Needs based on ESRD on HD, 76kg adj 25-30 kcals/kg 3786-6358 total kcals 1.25-1.8 g protein/kg 95-137 g total protein Fluid per MD, on HD NUTRITION DIAGNOSIS: Increased protein needs R/T ESRD as evidenced by pt on HD. CURRENT DIET: Renal, CCHO MED diet PO DIET RECOMMENDATIONS: CCHO MED, RENAL + DOUBLE PROTEIN PORTIONS ADDITIONAL RECOMMENDATIONS: 1) Obtain a dry standing weight POST HD 2) Monitor lytes -> consider phos binders w/ meals (elev phos) 3) Continue Nephrovite x 1 4) Double prot portions to better meet increased protein needs . .
--- NOTE | 2019-07-24 13:57 | Nephrology Progress Note ---
Assessment/Plan Problem List: (1) ESRD needing dialysis (2) Anemia (3) HTN (hypertension) (4) Noncompliance with renal dialysis (5) CHF (congestive heart failure) (6) Hyperkalemia (7) Diabetes mellitus Plan HD today cont Epogen follow labs Subjective Subjective feels ok Objective Objective Last 24 Hour Vital Signs Date Time Temp Pulse Resp B/P (MAP) Pulse Ox O2 Delivery O2 Flow Rate FiO2 07/24/19 12:00 98.5 74 20 122/58 (79) 94 07/24/19 11:59 132/66 07/24/19 11:58 132/66 07/24/19 11:40 69 20 99 Nasal Cannula 2.0 28 07/24/19 11:40 99 Nasal Cannula 2.0 28 07/24/19 09:00 Nasal Cannula 2.0 07/24/19 08:57 132/66 07/24/19 08:00 97.9 62 20 132/66 (88) 95 07/24/19 04:00 97.3 58 18 132/70 (90) 99 07/24/19 00:00 97.8 58 18 119/50 (73) 100 07/23/19 21:00 Nasal Cannula 3.0 07/23/19 20:34 131/68 07/23/19 20:34 65 131/68 07/23/19 20:05 97 Nasal Cannula 2.0 28 07/23/19 20:00 97.9 65 24 131/68 (89) 98 07/23/19 18:00 140/57 07/23/19 17:03 140/57 07/23/19 17:03 140/57 07/23/19 17:00 98.1 76 18 139/64 (89) 100 07/23/19 15:24 97.7 80 20 140/57 (84) 96 Intake and Output 07/23/19 07/24/19 19:00 07:00 Intake Total 150 ml Output Total 150 ml Balance 0 ml Intake Oral 150 ml Output Urine Total 150 ml # Voids 1 1 # Bowel Movements 1 Laboratory Tests 07/24/19 05:12: White Blood Count 4.4L, Red Blood Count 2.45L, Hemoglobin 7.5L, Hematocrit 24.4L , Mean Corpuscular Volume 99, Mean Corpuscular Hemoglobin 30.4, Mean Corpuscular Hemoglobin Concent 30.5L, Red Cell Distribution Width 18.7H, Platelet Count 126L, Mean Platelet Volume 5.7L, Neutrophils (%) (Auto) , Lymphocytes (%) (Auto) , Monocytes (%) (Auto) , Eosinophils (%) (Auto) , Basophils (%) (Auto) , Differential Total Cells Counted 100, Neutrophils % ( Manual) 64, Lymphocytes % (Manual) 15L, Monocytes % (Manual) 13H, Eosinophils % (Manual) 8H, Basophils % (Manual) 0, Band Neutrophils 0, Platelet Estimate DecreasedL, Platelet Morphology Normal, Anisocytosis 1+, Ovalocytes 1+, Sodium Level 142, Potassium Level 5.7H, Chloride Level 104, Carbon Dioxide Level 26, Anion Gap 12, Blood Urea Nitrogen 95H, Creatinine 8.8H, Estimat Glomerular Filtration Rate 6.2, Glucose Level 87, Calcium Level 9.9, Phosphorus Level 7.5H , Iron Level 38L, Total Iron Binding Capacity 167L, Percent Iron Saturation 23, Unsaturated Iron Binding 129 Height (Feet): 5 Height (Inches): 8.00 Weight (Pounds): 213 Cardiovascular: normal rate Respiratory/Chest: lungs clear Extremities: moderate edema Justin Hutson MD Jul 24, 2019 13:57
[2019-07-24 16:00] VITALS: BP 127/60
--- NOTE | 2019-07-24 16:00 | Cardiology Progress Note ---
Assessment/Plan Assessment/Plan chf systolic cardiomyopathy hypertension, ype 2 diabetes, and nd-stage renal disease on hemodialysis hyperkalemia, severe anemia dialysis non compliance MR/TR ? scabies refused stress test last time trop min abn of ? sig in light of renal insuf poor compliance makes difficult to treat effectively coreg Ecotrin statin for now in light of poor dialysis compliance i do not feel safe putting him on acei Isordil adn hydralazine combo for cm increase dose as bp allows post dialysis impoartance of compliance with dialysis meds and diet agin discussed with pt he indicated understanding Subjective Cardiovascular: Denies: chest pain, lightheadedness, palpitations Respiratory: Reports: shortness of breath Gastrointestinal/Abdominal: Denies: abdominal pain Genitourinary: Denies: burning Objective Last 24 Hour Vital Signs Date Time Temp Pulse Resp B/P (MAP) Pulse Ox O2 Delivery O2 Flow Rate FiO2 07/24/19 12:00 98.5 74 20 122/58 (79) 94 07/24/19 11:59 132/66 07/24/19 11:58 132/66 07/24/19 11:40 69 20 99 Nasal Cannula 2.0 28 07/24/19 11:40 99 Nasal Cannula 2.0 28 07/24/19 09:00 Nasal Cannula 2.0 07/24/19 08:57 132/66 07/24/19 08:00 97.9 62 20 132/66 (88) 95 07/24/19 04:00 97.3 58 18 132/70 (90) 99 07/24/19 00:00 97.8 58 18 119/50 (73) 100 07/23/19 21:00 Nasal Cannula 3.0 07/23/19 20:34 131/68 07/23/19 20:34 65 131/68 07/23/19 20:05 97 Nasal Cannula 2.0 28 07/23/19 20:00 97.9 65 24 131/68 (89) 98 07/23/19 18:00 140/57 07/23/19 17:03 140/57 07/23/19 17:03 140/57 07/23/19 17:00 98.1 76 18 139/64 (89) 100 General Appearance: no apparent distress, alert, obese Cardiovascular: normal rate Respiratory/Chest: decreased breath sounds Abdomen: normal bowel sounds, non tender, soft Extremities: moderate edema Intake and Output 07/23/19 07/24/19 19:00 07:00 Intake Total 150 ml Output Total 150 ml Balance 0 ml Intake Oral 150 ml Output Urine Total 150 ml # Voids 1 1 # Bowel Movements 1 Laboratory Tests Test 07/24/19 05:12 White Blood Count 4.4 K/UL (4.8-10.8) L Red Blood Count 2.45 M/UL (4.70-6.10) L Hemoglobin 7.5 G/DL (14.2-18.0) L Hematocrit 24.4 % (42.0-52.0) L Mean Corpuscular Volume 99 FL (80-99) Mean Corpuscular Hemoglobin 30.4 PG (27.0-31.0) Mean Corpuscular Hemoglobin Concent 30.5 G/DL (32.0-36.0) L Red Cell Distribution Width 18.7 % (11.6-14.8) H Platelet Count 126 K/UL (150-450) L Mean Platelet Volume 5.7 FL (6.5-10.1) L Neutrophils (%) (Auto) % (45.0-75.0) Lymphocytes (%) (Auto) % (20.0-45.0) Monocytes (%) (Auto) % (1.0-10.0) Eosinophils (%) (Auto) % (0.0-3.0) Basophils (%) (Auto) % (0.0-2.0) Differential Total Cells Counted 100 Neutrophils % (Manual) 64 % (45-75) Lymphocytes % (Manual) 15 % (20-45) L Monocytes % (Manual) 13 % (1-10) H Eosinophils % (Manual) 8 % (0-3) H Basophils % (Manual) 0 % (0-2) Band Neutrophils 0 % (0-8) Platelet Estimate Decreased L Platelet Morphology Normal Anisocytosis 1+ Ovalocytes 1+ Sodium Level 142 MMOL/L (136-145) Potassium Level 5.7 MMOL/L (3.5-5.1) H Chloride Level 104 MMOL/L (98-107) Carbon Dioxide Level 26 MMOL/L (21-32) Anion Gap 12 mmol/L (5-15) Blood Urea Nitrogen 95 mg/dL (7-18) H Creatinine 8.8 MG/DL (0.55-1.30) H Estimat Glomerular Filtration Rate 6.2 mL/min (>60) Glucose Level 87 MG/DL (74-106) Calcium Level 9.9 MG/DL (8.5-10.1) Phosphorus Level 7.5 MG/DL (2.5-4.9) H Iron Level 38 ug/dL (50-175) L Total Iron Binding Capacity 167 ug/dL (250-450) L Percent Iron Saturation 23 % (15-50) Unsaturated Iron Binding 129 ug/dL (112-346) Nikko Resendiz MD Jul 24, 2019 16:00
--- NOTE | 2019-07-24 17:15 | Progress Note ---
DATE: 07/24/2019 SUBJECTIVE: The patient is in bed, calm, cooperative, more manageable, and minimally verbal. Still uncooperative with the examination. MENTAL STATUS EXAMINATION: The patient is alert and disoriented. Mood is anxious. Affect is flat. Thought process, there is a paucity of thought content. Thought content, no suicidal or homicidal ideation. Cognition is impaired. ASSESSMENT: 1. Dementia. 2. Agitation. PLAN: We will continue current care. Donald Yanes M.D. DR: GARY JOB#: [id number] CC:
--- NOTE | 2019-07-24 17:29 | Internal Med Progress Note ---
Subjective Date of Service: Jul 24, 2019 Physician Name Kuldip Crisostomo Attending Physician Geovany Roblero MD Current Medications Medications (Trade) Dose Ordered Sig/Trav Route PRN Reason Start Time Stop Time Status Last Admin Dose Admin Acetaminophen (Tylenol) 650 mg Q4H PRN ORAL T>100.5 07/23/19 18:30 08/18/19 18:29 07/23/19 20:32 Albuterol/ Ipratropium (Albuterol/ Ipratropium) 3 ml Q6H PRN HHN dyspnea 07/23/19 18:30 07/28/19 18:29 Aspirin (ASA) 81 mg DAILY ORAL 07/24/19 09:00 08/19/19 08:59 07/24/19 08:56 Atorvastatin Calcium (Lipitor) 40 mg BEDTIME ORAL 07/23/19 21:00 08/19/19 20:59 07/23/19 20:35 Carvedilol (Coreg) 12.5 mg EVERY 12 HOURS ORAL 07/23/19 21:00 08/18/19 20:59 07/23/19 20:34 Chlorhexidine Gluconate (Kaylee-Hex 2%) 1 applic DAILY@2000 TOPIC 07/23/19 20:00 08/21/19 20:59 07/23/19 20:31 Clonidine HCl (Catapres Tab) 0.1 mg Q4H PRN ORAL SBP>160mmHg 07/23/19 21:15 08/18/19 13:14 Dextrose (Dextrose 50%) 25 ml Q30M PRN IV Hypoglycemia 07/23/19 18:15 08/18/19 13:14 Dextrose (Dextrose 50%) 50 ml Q30M PRN IV Hypoglycemia 07/23/19 18:15 08/18/19 13:14 Epoetin Garrett (Epoetin Garrett(ESRD on dialysis)) 10,000 unit TUE-TUE-TUE SUBQ 07/23/19 21:00 08/22/19 20:59 07/23/19 20:35 Escitalopram Oxalate (Lexapro) 10 mg DAILY ORAL 07/24/19 09:00 08/23/19 08:59 07/24/19 08:57 Famotidine (Pepcid) 20 mg DAILY ORAL 07/24/19 09:00 08/19/19 08:59 07/24/19 08:56 Guaifenesin/ Dextromethorphan (Robitussin DM Syrup) 10 ml Q6H PRN ORAL For Cough 07/23/19 18:30 08/21/19 18:29 Heparin Sodium (Porcine) (Heparin 5000 units/ml) 5,000 units EVERY 12 HOURS SUBQ 07/23/19 21:00 08/18/19 20:59 Heparin Sodium (Porcine) (Heparin 5000 units/ml) 5,000 units POSTHD PRN INJ POST HD 07/23/19 18:30 07/25/19 23:59 Heparin Sodium (Porcine) (Heparin Sod 1000 units/ml 10ml) 2,000 unit ONCE PRN IV FOR HD USE 07/23/19 18:00 07/25/19 23:59 Hydralazine HCl (Apresoline) 10 mg TID ORAL 07/24/19 18:00 08/23/19 17:59 Insulin Aspart (NovoLOG) BEFORE MEALS AND HS SUBQ 07/23/19 21:00 08/18/19 16:29 07/24/19 16:55 Isosorbide Dinitrate (Isordil) 10 mg TID ORAL 07/24/19 09:00 08/23/19 08:59 07/24/19 11:58 Lorazepam (Ativan) 1 mg Q6H PRN ORAL For Anxiety 07/23/19 18:30 07/30/19 18:29 Morphine Sulfate (Morphine Sulfate) 1 mg Q4H PRN IVP PAIN 4-10 07/23/19 18:30 07/26/19 18:29 07/24/19 08:56 Ondansetron HCl (Zofran) 4 mg Q6H PRN IVP Nausea & Vomiting 07/23/19 18:30 08/18/19 18:29 Permethrin (Elimite) 1 applic ONCE ONCE TOPIC 07/27/19 09:00 07/27/19 09:01 Polyethylene Glycol (Miralax) 17 gm HSPRN PRN ORAL Constipation 07/23/19 21:00 08/22/19 20:59 Sodium Chloride 1,000 ml @ 500 mls/hr Q2H PRN IVLG sbp<90 during hd 07/23/19 18:30 08/22/19 18:29 Vitamin B Complex/ Vit C/Folic Acid (Nephrovite) 1 tab DAILY ORAL 07/24/19 09:00 08/19/19 08:59 07/24/19 08:56 Zolpidem Tartrate (Ambien) 5 mg HSPRN PRN ORAL Insomnia 07/24/19 21:00 07/26/19 20:59 Allergies: Coded Allergies: No Known Allergies (Unverified , 07/06/19) ROS Limited/Unobtainable: No Constitutional: Reports: no symptoms HEENT: Reports: no symptoms Cardiovascular: Reports: no symptoms Respiratory: Reports: no symptoms Gastrointestinal/Abdominal: Reports: no symptoms Genitourinary: Reports: no symptoms Neurologic/Psychiatric: Reports: no symptoms Subjective 63 YO M admitted with dyspnea. Now CHF. Cover for Int med-Dr Roblero. Objective Last Vital Signs Date Time Temp Pulse Resp B/P (MAP) Pulse Ox O2 Delivery O2 Flow Rate FiO2 07/24/19 16:00 98.5 71 20 127/60 (82) 95 07/24/19 11:40 Nasal Cannula 2.0 28 Laboratory Tests Test 07/24/19 05:12 White Blood Count 4.4 K/UL (4.8-10.8) L Red Blood Count 2.45 M/UL (4.70-6.10) L Hemoglobin 7.5 G/DL (14.2-18.0) L Hematocrit 24.4 % (42.0-52.0) L Mean Corpuscular Volume 99 FL (80-99) Mean Corpuscular Hemoglobin 30.4 PG (27.0-31.0) Mean Corpuscular Hemoglobin Concent 30.5 G/DL (32.0-36.0) L Red Cell Distribution Width 18.7 % (11.6-14.8) H Platelet Count 126 K/UL (150-450) L Mean Platelet Volume 5.7 FL (6.5-10.1) L Neutrophils (%) (Auto) % (45.0-75.0) Lymphocytes (%) (Auto) % (20.0-45.0) Monocytes (%) (Auto) % (1.0-10.0) Eosinophils (%) (Auto) % (0.0-3.0) Basophils (%) (Auto) % (0.0-2.0) Differential Total Cells Counted 100 Neutrophils % (Manual) 64 % (45-75) Lymphocytes % (Manual) 15 % (20-45) L Monocytes % (Manual) 13 % (1-10) H Eosinophils % (Manual) 8 % (0-3) H Basophils % (Manual) 0 % (0-2) Band Neutrophils 0 % (0-8) Platelet Estimate Decreased L Platelet Morphology Normal Anisocytosis 1+ Ovalocytes 1+ Sodium Level 142 MMOL/L (136-145) Potassium Level 5.7 MMOL/L (3.5-5.1) H Chloride Level 104 MMOL/L (98-107) Carbon Dioxide Level 26 MMOL/L (21-32) Anion Gap 12 mmol/L (5-15) Blood Urea Nitrogen 95 mg/dL (7-18) H Creatinine 8.8 MG/DL (0.55-1.30) H Estimat Glomerular Filtration Rate 6.2 mL/min (>60) Glucose Level 87 MG/DL (74-106) Calcium Level 9.9 MG/DL (8.5-10.1) Phosphorus Level 7.5 MG/DL (2.5-4.9) H Iron Level 38 ug/dL (50-175) L Total Iron Binding Capacity 167 ug/dL (250-450) L Percent Iron Saturation 23 % (15-50) Unsaturated Iron Binding 129 ug/dL (112-346) Intake and Output 07/23/19 07/24/19 19:00 07:00 Intake Total 150 ml Output Total 150 ml Balance 0 ml Intake Oral 150 ml Output Urine Total 150 ml # Voids 1 1 # Bowel Movements 1 Objective PHYSICAL EXAMINATION: GENERAL: The patient is a well-developed and well-nourished male, in no apparent distress. HEENT: Eyes, pupils are equal and responsive to light and accommodation. Extraocular movements are intact. NECK: Supple without lymphadenopathy. CHEST: Lungs are clear to auscultation bilaterally without wheezes or rales. CARDIOVASCULAR: Regular rhythm and rate. S1 and S2 are normal without murmurs, rubs, or gallops. ABDOMEN: Soft, nontender, and nondistended. Positive bowel sounds. No evidence of hepatosplenomegaly. Currently, no rebound or guarding noted. EXTREMITIES: Negative for clubbing, cyanosis, or edema. RECTAL/GENITAL: Refused. NEUROLOGIC: Cranial nerves II through XII are grossly intact without focal deficits. Motor strength is 5/5 bilaterally. Deep tendon reflexes are 2+ plantar. Assessment/Plan Assessment/Plan ASSESSMENT: This is a 63-year-old male. 1. Dyspnea. 2. Congestive heart failure. 3. End-stage renal disease. 4. Diabetes type 2. 5. Diabetic gastroparesis. 6. Diabetic neuropathy. 7. Gastroesophageal reflux disease. 8. Hypertension. 9. Bjxonyyi-ky-yleiae mitral valve regurgitation. 10. Vvvizvit-mi-bhjfkt tricuspid valve regurgitation. 11. Pulmonary hypertension. 12. Anemia of chronic renal disease. TREATMENT: 1. Dyspnea. A Pulmonary consultation has been obtained with Dr. Christy Mercer. We will follow recommendations of Pulmonary. Dyspnea is probably secondary to volume overload. We will follow recommendations of Pulmonary. 2. Congestive heart failure. This is probably secondary to volume overload. A Cardiology consultation is pending with Dr. Nikko Resendiz. Serial troponin levels will be performed. Serial BNPs will be performed. 3. Diabetes type 2. NovoLog sliding scale has been instituted. 4. Diabetic gastroparesis. 5. Diabetic neuropathy. 6. Gastroesophageal reflux disease. Continue Pepcid as above. 7. Hypertension. Continue clonidine and carvedilol as above. 8. Guxzgale-hg-byoxed mitral valve regurgitation. 9. Zaphtkxw-zu-uwfhxu tricuspid valve regurgitation. 10. Pulmonary hypertension. 11. Anemia of chronic renal disease. 12. ESRD S/P hemodialysis 07/24/19. See nephrology note Kuldip Crisostomo MD Jul 24, 2019 17:29
--- NOTE | 2019-07-24 19:41 | NUR ---
HAND-OFF: Report given to ANTONY THAYER.
--- NOTE | 2019-07-24 19:45 | NUR ---
NURSE NOTES: Received report from ANTONY Couch. Patient awake and verbally responsive to let his needs known. Breathing unlabored without distress, discomfort, or sob on 2L O2 via NC. No IV access noted. Right site AV shunt bruit and thrill noted. Right chest permacath intact with dry and clean dressing. Bed placed at the lowest with alarm, brake, and siderails up for safety. Call light placed within reach and reinforced to use when assistance is needed. Will continue to monitor and provide care as ordered.
[2019-07-24 20:00] VITALS: BP 121/69
[2019-07-24] MEDS: Dyna-Hex 2% Top Sol 2oz TOPIC SCH (20:09)
[2019-07-24] MEDS ORDERED: Zolpidem 5mg tab ORAL PRN (21:00)
[2019-07-24] MEDS: Atorvastatin 20mg tab ORAL SCH (21:32)
[2019-07-24] MEDS: Albuterol/Ipratropium 3ml neb HHN PRN (22:39)
--- NOTE | 2019-07-24 23:00 | NUR ---
NURSE NOTES: No IV access. Patient refused new IV insert at this time. Explained the risk of not having IV access and procedure of inserting IV access. Patient verbalize understanding, but continues to refuse IV at this time. Patient said he might give it a try in the morning. No IV medications due at this time. Will continue to monitor. Addendum: 07/25/19 at 0315 by Janice Hassan RN Charge nurse made aware.
[2019-07-25] VITALS: BP 110/63
[2019-07-25 04:00] VITALS: BP 117/54
--- NOTE | 2019-07-25 05:01 | NUR ---
NURSE NOTES: Attempted IV insertion, but patient refused again at this time. Said "come back an hour later, and maybe". Patient verbalize understanding to risk of not having IV access. Patient continues to refuse. Will continue to monitor and provide other care as ordered.
[2019-07-25 05:57] LABS: HEMATOCRIT 22.8 % (42.0-52.0); MEAN CORPUSCULAR VOLUME 99 FL (80-99); PLATELET COUNT 125 K/UL (150-450); RED CELL DISTRIBUTION WIDTH 18.7 % (11.6-14.8); WHITE BLOOD COUNT 4.4 K/UL (4.8-10.8)
[2019-07-25 06:03] LABS: HEMOGLOBIN 6.9 G/DL (14.2-18.0)
[2019-07-25 06:08] LABS: ANION GAP 12 mmol/L (5-15); BLOOD UREA NITROGEN 72 mg/dL (7-18); CALCIUM 9.9 MG/DL (8.5-10.1); CARBON DIOXIDE 27 MMOL/L (21-32); CHLORIDE 104 MMOL/L (98-107); POTASSIUM 4.6 MMOL/L (3.5-5.1); SODIUM 142 MMOL/L (136-145)
--- NOTE | 2019-07-25 06:09 | NUR ---
NURSE NOTES: Received call from Laboratory regards to critical lab value of hgb 6.9. Reached Dr. Roblero to inform about the critical lab value. made aware and said "It's okay". MD will follow up. No new orders given at this time. Will endorse to day shift nurse. Patient currently asymptomatic and on his baseline condition. No change noted. Will continue to monitor.
[2019-07-25] MEDS: NovoLOG Insulin Flexpen SUBQ SCH ×4 (06:25→21:00)
--- NOTE | 2019-07-25 06:35 | NUR ---
NURSE NOTES: Patient agreed and allowed to placed a new 22g IV on left wrist. Patient verbalized understanding of the procedure. New IV site intact, dry, clean, and patent. Patient tolerated the procedure well. Patient in stable condition. Will continue to monitor.
--- NOTE | 2019-07-25 07:15 | NUR ---
HAND-OFF: Report given to ANTONY Couch.
--- NOTE | 2019-07-25 07:22 | NUR ---
NURSE NOTES: HANDOFF RECEIVED FROM MINSU, RN. PATIENT RECEIVED SLEEPING IN BED WITH BREAKFAST TRAY AT BEDSIDE. PATIENT WRISTBAND NEEDED REPLACING SO HAD TO WAKE PATIENT TO PLACE NEW WRISTBAND. PATIENT STATED " I HAVE NOT SLEPT LAST NIGHT WHY DID YOU WAKE ME" PATIENT THEN DECIDED TO SIT UP AND EAT BREAKFAST. IV SITE IS CLEAN DRY AND INTACT, SALINE LOCKED. BED IN THE LOW AND LOCKED POSITION WITH CALL LIGHT WITHIN REACH. NO OBVIOUS SIGNS OF DISTRESS. WILL CONTINUE TO MONITOR PATIENT.
[2019-07-25 08:00] VITALS: BP 120/51
[2019-07-25] MEDS: Heparin 5000 units/ml inj SUBQ SCH ×2 (09:00→21:00)
[2019-07-25] MEDS: Carvedilol 12.5mg tab ORAL SCH ×2 (09:32→21:00)
[2019-07-25] MEDS: Nephrovite tab (Rena-Vite) ORAL SCH (09:32)
[2019-07-25] MEDS: Morphine Sulfate 2mg/ml Inj(IV/IM USE ONLY) IVP PRN ×2 (09:32→20:49)
[2019-07-25] MEDS: Aspirin Baby 81mg ORAL SCH (09:33)
[2019-07-25] MEDS: HydrALAZINE 10mg Tab ORAL SCH ×3 (09:33→18:41)
[2019-07-25] MEDS: Albuterol/Ipratropium 3ml neb HHN PRN (10:54)
[2019-07-25 12:00] VITALS: BP 120/55
--- NOTE | 2019-07-25 12:19 | Nephrology Progress Note ---
Assessment/Plan Problem List: (1) ESRD needing dialysis (2) Anemia (3) HTN (hypertension) (4) Noncompliance with renal dialysis (5) CHF (congestive heart failure) (6) Hyperkalemia (7) Diabetes mellitus Plan HD tomorrow cont Epogen follow labs Subjective Subjective feels ok Objective Objective Last 24 Hour Vital Signs Date Time Temp Pulse Resp B/P (MAP) Pulse Ox O2 Delivery O2 Flow Rate FiO2 07/25/19 10:56 64 18 97 Nasal Cannula 2.0 28 66 20 92 07/25/19 09:33 120/51 07/25/19 09:33 120/51 07/25/19 09:32 64 120/51 07/25/19 09:17 94 Nasal Cannula 2.0 28 07/25/19 09:17 64 20 94 Nasal Cannula 28 07/25/19 09:00 Nasal Cannula 2.0 07/25/19 08:00 97.8 64 19 120/51 (74) 97 07/25/19 04:00 98.5 86 20 117/54 (75) 96 07/25/19 00:00 97.7 85 24 110/63 (79) 94 07/24/19 22:39 56 16 96 Nasal Cannula 2.0 28 56 16 96 07/24/19 21:32 64 133/62 07/24/19 21:00 Nasal Cannula 2.0 07/24/19 20:00 98.1 68 24 121/69 (86) 97 07/24/19 19:57 75 22 95 Nasal Cannula 28 07/24/19 19:57 95 Nasal Cannula 28 07/24/19 18:08 127/60 07/24/19 18:08 127/60 07/24/19 16:00 98.5 71 20 127/60 (82) 95 Intake and Output 07/24/19 07/25/19 19:00 07:00 Intake Total 480 ml Output Total 1 ml Balance 479 ml Intake Oral 480 ml Output Urine Total 1 ml # Voids 2 Laboratory Tests 07/25/19 05:12: White Blood Count 4.4L, Red Blood Count 2.30L, Hemoglobin 6.9*L, Hematocrit 22.8L, Mean Corpuscular Volume 99, Mean Corpuscular Hemoglobin 30.0, Mean Corpuscular Hemoglobin Concent 30.3L, Red Cell Distribution Width 18.7H, Platelet Count 125L, Mean Platelet Volume 5.2L, Neutrophils (%) (Auto) , Lymphocytes (%) (Auto) , Monocytes (%) (Auto) , Eosinophils (%) (Auto) , Basophils (%) (Auto) , Differential Total Cells Counted 100, Neutrophils % ( Manual) 54, Lymphocytes % (Manual) 19L, Monocytes % (Manual) 17H, Eosinophils % (Manual) 8H, Basophils % (Manual) 2, Band Neutrophils 0, Platelet Estimate DecreasedL, Platelet Morphology Normal, Hypochromasia 3+, Anisocytosis 2+, Sodium Level 142, Potassium Level 4.6, Chloride Level 104, Carbon Dioxide Level 27, Anion Gap 12, Blood Urea Nitrogen 72H, Creatinine 7.0H, Estimat Glomerular Filtration Rate 8.0, Glucose Level 125H, Calcium Level 9.9 Height (Feet): 5 Height (Inches): 8.00 Weight (Pounds): 210 Cardiovascular: normal rate Respiratory/Chest: lungs clear Extremities: moderate edema Justin Hutson MD Jul 25, 2019 12:19
--- NOTE | 2019-07-25 13:22 | Pulmonology Progress Note ---
Assessment/Plan Problems: (1) Pulmonary edema (2) ESRD needing dialysis (3) Pleural effusion, right (4) Noncompliance with renal dialysis (5) Hyperkalemia (6) Anemia (7) Diabetes mellitus (8) HTN (hypertension) (9) Physical debility Assessment/Plan doing better HD by nephrology sliding scale symptomatic treatment pt.ot resume medication got Ivermectin and Elimite on Tuesday dc planning Subjective ROS Limited/Unobtainable: No Constitutional: Reports: no symptoms HEENT: Repors: no symptoms Allergies: Coded Allergies: No Known Allergies (Unverified , 07/06/19) Objective Last 24 Hour Vital Signs Date Time Temp Pulse Resp B/P (MAP) Pulse Ox O2 Delivery O2 Flow Rate FiO2 07/25/19 10:56 64 18 97 Nasal Cannula 2.0 28 66 20 92 07/25/19 09:33 120/51 07/25/19 09:33 120/51 07/25/19 09:32 64 120/51 07/25/19 09:17 94 Nasal Cannula 2.0 28 07/25/19 09:17 64 20 94 Nasal Cannula 28 07/25/19 09:00 Nasal Cannula 2.0 07/25/19 08:00 97.8 64 19 120/51 (74) 97 07/25/19 04:00 98.5 86 20 117/54 (75) 96 07/25/19 00:00 97.7 85 24 110/63 (79) 94 07/24/19 22:39 56 16 96 Nasal Cannula 2.0 28 56 16 96 07/24/19 21:32 64 133/62 07/24/19 21:00 Nasal Cannula 2.0 07/24/19 20:00 98.1 68 24 121/69 (86) 97 07/24/19 19:57 75 22 95 Nasal Cannula 28 07/24/19 19:57 95 Nasal Cannula 28 07/24/19 18:08 127/60 07/24/19 18:08 127/60 07/24/19 16:00 98.5 71 20 127/60 (82) 95 Intake and Output 07/24/19 07/25/19 19:00 07:00 Intake Total 480 ml Output Total 1 ml Balance 479 ml Intake Oral 480 ml Output Urine Total 1 ml # Voids 2 General Appearance: WD/WN HEENT: normocephalic, atraumatic, anicteric Respiratory/Chest: chest wall non-tender, lungs clear Cardiovascular: normal peripheral pulses, normal rate Abdomen: normal bowel sounds, soft, non tender Genitourinary: normal external genitalia Extremities: no cyanosis Neurologic/Psychiatric: instructor pilot II-XII grossly normal Lymphatic: no neck adenopathy Laboratory Tests 07/25/19 05:12: White Blood Count 4.4L, Red Blood Count 2.30L, Hemoglobin 6.9*L, Hematocrit 22.8L, Mean Corpuscular Volume 99, Mean Corpuscular Hemoglobin 30.0, Mean Corpuscular Hemoglobin Concent 30.3L, Red Cell Distribution Width 18.7H, Platelet Count 125L, Mean Platelet Volume 5.2L, Neutrophils (%) (Auto) , Lymphocytes (%) (Auto) , Monocytes (%) (Auto) , Eosinophils (%) (Auto) , Basophils (%) (Auto) , Differential Total Cells Counted 100, Neutrophils % ( Manual) 54, Lymphocytes % (Manual) 19L, Monocytes % (Manual) 17H, Eosinophils % (Manual) 8H, Basophils % (Manual) 2, Band Neutrophils 0, Platelet Estimate DecreasedL, Platelet Morphology Normal, Hypochromasia 3+, Anisocytosis 2+, Sodium Level 142, Potassium Level 4.6, Chloride Level 104, Carbon Dioxide Level 27, Anion Gap 12, Blood Urea Nitrogen 72H, Creatinine 7.0H, Estimat Glomerular Filtration Rate 8.0, Glucose Level 125H, Calcium Level 9.9 Current Medications Medications (Trade) Dose Ordered Sig/Trav Route PRN Reason Start Time Stop Time Status Last Admin Dose Admin Acetaminophen (Tylenol) 650 mg Q4H PRN ORAL T>100.5 07/23/19 18:30 08/18/19 18:29 07/23/19 20:32 Albuterol/ Ipratropium (Albuterol/ Ipratropium) 3 ml Q6H PRN HHN dyspnea 07/23/19 18:30 07/28/19 18:29 07/25/19 10:54 Aspirin (ASA) 81 mg DAILY ORAL 07/24/19 09:00 08/19/19 08:59 07/25/19 09:33 Atorvastatin Calcium (Lipitor) 40 mg BEDTIME ORAL 07/23/19 21:00 08/19/19 20:59 10/1/19 21:32 Carvedilol (Coreg) 12.5 mg EVERY 12 HOURS ORAL 07/23/19 21:00 08/18/19 20:59 07/25/19 09:32 Chlorhexidine Gluconate (Kaylee-Hex 2%) 1 applic DAILY@2000 TOPIC 07/23/19 20:00 08/21/19 20:59 07/24/19 20:09 Clonidine HCl (Catapres Tab) 0.1 mg Q4H PRN ORAL SBP>160mmHg 07/23/19 21:15 08/18/19 13:14 Dextrose (Dextrose 50%) 25 ml Q30M PRN IV Hypoglycemia 07/23/19 18:15 08/18/19 13:14 Dextrose (Dextrose 50%) 50 ml Q30M PRN IV Hypoglycemia 07/23/19 18:15 08/18/19 13:14 Epoetin Garrett (Epoetin Garrett(ESRD on dialysis)) 10,000 unit TUE-TUE-TUE SUBQ 07/23/19 21:00 08/22/19 20:59 07/23/19 20:35 Escitalopram Oxalate (Lexapro) 10 mg DAILY ORAL 07/24/19 09:00 08/23/19 08:59 07/25/19 09:32 Famotidine (Pepcid) 20 mg DAILY ORAL 07/24/19 09:00 08/19/19 08:59 07/25/19 09:33 Guaifenesin/ Dextromethorphan (Robitussin DM Syrup) 10 ml Q6H PRN ORAL For Cough 07/23/19 18:30 08/21/19 18:29 07/25/19 02:04 Heparin Sodium (Porcine) (Heparin 5000 units/ml) 5,000 units EVERY 12 HOURS SUBQ 07/23/19 21:00 08/18/19 20:59 Heparin Sodium (Porcine) (Heparin 5000 units/ml) 5,000 units POSTHD PRN INJ POST HD 07/23/19 18:30 07/25/19 23:59 Heparin Sodium (Porcine) (Heparin Sod 1000 units/ml 10ml) 500 unit ONCE PRN IV HD 07/26/19 06:00 07/26/19 23:59 Hydralazine HCl (Apresoline) 10 mg TID ORAL 07/24/19 18:00 08/23/19 17:59 07/25/19 09:33 Insulin Aspart (NovoLOG) BEFORE MEALS AND HS SUBQ 07/23/19 21:00 08/18/19 16:29 07/25/19 06:25 Isosorbide Dinitrate (Isordil) 10 mg TID ORAL 07/24/19 09:00 08/23/19 08:59 07/25/19 09:33 Lorazepam (Ativan) 1 mg Q6H PRN ORAL For Anxiety 07/23/19 18:30 07/30/19 18:29 Morphine Sulfate (Morphine Sulfate) 1 mg Q4H PRN IVP PAIN 4-10 07/23/19 18:30 07/26/19 18:29 07/25/19 09:32 Ondansetron HCl (Zofran) 4 mg Q6H PRN IVP Nausea & Vomiting 07/23/19 18:30 08/18/19 18:29 Permethrin (Elimite) 1 applic ONCE ONCE TOPIC 07/27/19 09:00 07/27/19 09:01 Polyethylene Glycol (Miralax) 17 gm HSPRN PRN ORAL Constipation 07/23/19 21:00 08/22/19 20:59 Sodium Chloride 1,000 ml @ 500 mls/hr Q2H PRN IVLG sbp<90 during hd 07/26/19 06:00 07/26/19 23:59 Vitamin B Complex/ Vit C/Folic Acid (Nephrovite) 1 tab DAILY ORAL 07/24/19 09:00 08/19/19 08:59 07/25/19 09:32 Zolpidem Tartrate (Ambien) 5 mg HSPRN PRN ORAL Insomnia 07/24/19 21:00 07/26/19 20:59 Christy Mercer MD Jul 25, 2019 13:22
[2019-07-25 16:00] VITALS: BP 133/64
--- NOTE | 2019-07-25 16:50 | NUR ---
NURSE NOTES: PRBC TRANSFUSION STARTED AT 1630, PATIENT TOLERATING WELL. NO SIGNS OF DISTRESS OR REACTION. VITALS AT THE 15 MINUTE ELIZABETH WITHIN NORMAL RANGE. PRE-TRANSFUSION VITALS: TEMP 97.2, HR 61, BP 133/64 15 MINUTES LATER VITALS ARE: TEMP 98.0, HR 65, BP 130/52. INCREASED RATE TO 120ML/HOUR. WILL CONTINUE TO MONITOR PATIENT.
--- NOTE | 2019-07-25 16:56 | NUR ---
PEDIATRIC PHYSICIAN ASSISTANT NOTES PT ACCEPTED BACK TO [facility] 121 BED D. SKILLED.
--- NOTE | 2019-07-25 18:15 | NUR ---
NURSE NOTES: TRANSFUSION OF PRBC'S COMPLETED, PATIENT TOLERATED WELL, NO ADVERSE REACTIONS OBSERVED. VITALS STABLE. WILL CONTINUE TO MONITOR PATIENT.
--- NOTE | 2019-07-25 19:04 | Internal Med Progress Note ---
Subjective Date of Service: Jul 25, 2019 Physician Name Kuldip Crisostomo Attending Physician Geovany Roblero MD Current Medications Medications (Trade) Dose Ordered Sig/Trav Route PRN Reason Start Time Stop Time Status Last Admin Dose Admin Acetaminophen (Tylenol) 650 mg Q4H PRN ORAL T>100.5 07/23/19 18:30 08/18/19 18:29 07/23/19 20:32 Albuterol/ Ipratropium (Albuterol/ Ipratropium) 3 ml Q6H PRN HHN dyspnea 07/23/19 18:30 07/28/19 18:29 07/25/19 10:54 Aspirin (ASA) 81 mg DAILY ORAL 07/24/19 09:00 08/19/19 08:59 07/25/19 09:33 Atorvastatin Calcium (Lipitor) 40 mg BEDTIME ORAL 07/23/19 21:00 08/19/19 20:59 07/24/19 21:32 Carvedilol (Coreg) 12.5 mg EVERY 12 HOURS ORAL 07/23/19 21:00 08/18/19 20:59 07/25/19 09:32 Chlorhexidine Gluconate (Kaylee-Hex 2%) 1 applic DAILY@2000 TOPIC 07/23/19 20:00 08/21/19 20:59 07/24/19 20:09 Clonidine HCl (Catapres Tab) 0.1 mg Q4H PRN ORAL SBP>160mmHg 07/23/19 21:15 08/18/19 13:14 Dextrose (Dextrose 50%) 25 ml Q30M PRN IV Hypoglycemia 07/23/19 18:15 08/18/19 13:14 Dextrose (Dextrose 50%) 50 ml Q30M PRN IV Hypoglycemia 07/23/19 18:15 08/18/19 13:14 Epoetin Garrett (Epoetin Garrett(ESRD on dialysis)) 10,000 unit TUE-TUE-TUE SUBQ 07/23/19 21:00 08/22/19 20:59 07/23/19 20:35 Escitalopram Oxalate (Lexapro) 10 mg DAILY ORAL 07/24/19 09:00 08/23/19 08:59 07/25/19 09:32 Famotidine (Pepcid) 20 mg DAILY ORAL 07/24/19 09:00 08/19/19 08:59 07/25/19 09:33 Guaifenesin/ Dextromethorphan (Robitussin DM Syrup) 10 ml Q6H PRN ORAL For Cough 07/23/19 18:30 08/21/19 18:29 07/25/19 02:04 Heparin Sodium (Porcine) (Heparin 5000 units/ml) 5,000 units EVERY 12 HOURS SUBQ 07/23/19 21:00 08/18/19 20:59 Heparin Sodium (Porcine) (Heparin 5000 units/ml) 5,000 units POSTHD PRN INJ POST HD 07/23/19 18:30 07/25/19 23:59 Heparin Sodium (Porcine) (Heparin Sod 1000 units/ml 10ml) 500 unit ONCE PRN IV HD 07/26/19 06:00 07/26/19 23:59 Hydralazine HCl (Apresoline) 10 mg TID ORAL 07/24/19 18:00 08/23/19 17:59 07/25/19 18:41 Insulin Aspart (NovoLOG) BEFORE MEALS AND HS SUBQ 07/23/19 21:00 08/18/19 16:29 07/25/19 17:32 Isosorbide Dinitrate (Isordil) 10 mg TID ORAL 07/24/19 09:00 08/23/19 08:59 07/25/19 18:41 Lorazepam (Ativan) 1 mg Q6H PRN ORAL For Anxiety 07/23/19 18:30 07/30/19 18:29 Morphine Sulfate (Morphine Sulfate) 1 mg Q4H PRN IVP PAIN 4-10 07/23/19 18:30 07/26/19 18:29 07/25/19 09:32 Ondansetron HCl (Zofran) 4 mg Q6H PRN IVP Nausea & Vomiting 07/23/19 18:30 08/18/19 18:29 Permethrin (Elimite) 1 applic ONCE ONCE TOPIC 07/27/19 09:00 07/27/19 09:01 Polyethylene Glycol (Miralax) 17 gm HSPRN PRN ORAL Constipation 07/23/19 21:00 08/22/19 20:59 Sodium Chloride 1,000 ml @ 500 mls/hr Q2H PRN IVLG sbp<90 during hd 07/26/19 06:00 07/26/19 23:59 Vitamin B Complex/ Vit C/Folic Acid (Nephrovite) 1 tab DAILY ORAL 07/24/19 09:00 08/19/19 08:59 07/25/19 09:32 Zolpidem Tartrate (Ambien) 5 mg HSPRN PRN ORAL Insomnia 07/24/19 21:00 07/26/19 20:59 Allergies: Coded Allergies: No Known Allergies (Unverified , 07/06/19) ROS Limited/Unobtainable: No Constitutional: Reports: no symptoms HEENT: Reports: no symptoms Cardiovascular: Reports: no symptoms Respiratory: Reports: no symptoms Gastrointestinal/Abdominal: Reports: no symptoms Genitourinary: Reports: no symptoms Neurologic/Psychiatric: Reports: no symptoms Subjective 63 YO M admitted with dyspnea. Now CHF. Cover for Int med-Dr Roblero. Objective Last Vital Signs Date Time Temp Pulse Resp B/P (MAP) Pulse Ox O2 Delivery O2 Flow Rate FiO2 07/25/19 18:41 133/64 07/25/19 16:00 97.2 61 20 96 07/25/19 10:56 Nasal Cannula 2.0 28 Laboratory Tests Test 07/25/19 05:12 White Blood Count 4.4 K/UL (4.8-10.8) L Red Blood Count 2.30 M/UL (4.70-6.10) L Hemoglobin 6.9 G/DL (14.2-18.0) *L Hematocrit 22.8 % (42.0-52.0) L Mean Corpuscular Volume 99 FL (80-99) Mean Corpuscular Hemoglobin 30.0 PG (27.0-31.0) Mean Corpuscular Hemoglobin Concent 30.3 G/DL (32.0-36.0) L Red Cell Distribution Width 18.7 % (11.6-14.8) H Platelet Count 125 K/UL (150-450) L Mean Platelet Volume 5.2 FL (6.5-10.1) L Neutrophils (%) (Auto) % (45.0-75.0) Lymphocytes (%) (Auto) % (20.0-45.0) Monocytes (%) (Auto) % (1.0-10.0) Eosinophils (%) (Auto) % (0.0-3.0) Basophils (%) (Auto) % (0.0-2.0) Differential Total Cells Counted 100 Neutrophils % (Manual) 54 % (45-75) Lymphocytes % (Manual) 19 % (20-45) L Monocytes % (Manual) 17 % (1-10) H Eosinophils % (Manual) 8 % (0-3) H Basophils % (Manual) 2 % (0-2) Band Neutrophils 0 % (0-8) Platelet Estimate Decreased L Platelet Morphology Normal Hypochromasia 3+ Anisocytosis 2+ Sodium Level 142 MMOL/L (136-145) Potassium Level 4.6 MMOL/L (3.5-5.1) Chloride Level 104 MMOL/L (98-107) Carbon Dioxide Level 27 MMOL/L (21-32) Anion Gap 12 mmol/L (5-15) Blood Urea Nitrogen 72 mg/dL (7-18) H Creatinine 7.0 MG/DL (0.55-1.30) H Estimat Glomerular Filtration Rate 8.0 mL/min (>60) Glucose Level 125 MG/DL (74-106) H Calcium Level 9.9 MG/DL (8.5-10.1) Intake and Output 07/24/19 07/25/19 19:00 07:00 Intake Total 480 ml Output Total 1 ml Balance 479 ml Intake Oral 480 ml Output Urine Total 1 ml # Voids 2 Objective PHYSICAL EXAMINATION: GENERAL: The patient is a well-developed and well-nourished male, in no apparent distress. HEENT: Eyes, pupils are equal and responsive to light and accommodation. Extraocular movements are intact. NECK: Supple without lymphadenopathy. CHEST: Lungs are clear to auscultation bilaterally without wheezes or rales. CARDIOVASCULAR: Regular rhythm and rate. S1 and S2 are normal without murmurs, rubs, or gallops. ABDOMEN: Soft, nontender, and nondistended. Positive bowel sounds. No evidence of hepatosplenomegaly. Currently, no rebound or guarding noted. EXTREMITIES: Negative for clubbing, cyanosis, or edema. RECTAL/GENITAL: Refused. NEUROLOGIC: Cranial nerves II through XII are grossly intact without focal deficits. Motor strength is 5/5 bilaterally. Deep tendon reflexes are 2+ plantar. Assessment/Plan Assessment/Plan ASSESSMENT: This is a 63-year-old male. 1. Dyspnea. 2. Congestive heart failure. 3. End-stage renal disease. 4. Diabetes type 2. 5. Diabetic gastroparesis. 6. Diabetic neuropathy. 7. Gastroesophageal reflux disease. 8. Hypertension. 9. Ggyunxqd-in-xnwlvq mitral valve regurgitation. 10. Hgywizhv-cf-xionkt tricuspid valve regurgitation. 11. Pulmonary hypertension. 12. Severe Anemia of chronic renal disease. TREATMENT: 1. Dyspnea. A Pulmonary consultation has been obtained with Dr. Christy Mercer. We will follow recommendations of Pulmonary. Dyspnea is probably secondary to volume overload. We will follow recommendations of Pulmonary. 2. Congestive heart failure. This is probably secondary to volume overload. A Cardiology consultation is pending with Dr. Nikko Resendiz. Serial troponin levels will be performed. Serial BNPs will be performed. 3. Diabetes type 2. NovoLog sliding scale has been instituted. 4. Diabetic gastroparesis. 5. Diabetic neuropathy. 6. Gastroesophageal reflux disease. Continue Pepcid as above. 7. Hypertension. Continue clonidine and carvedilol as above. 8. Ftzijgab-hi-xdwqab mitral valve regurgitation. 9. Ijrkhxiv-yh-chbcii tricuspid valve regurgitation. 10. Pulmonary hypertension. 11. Severe Anemia of chronic renal disease. Transfuse 1 Unit PRBC 07/25/19 12. ESRD Next hemodialysis 07/26/19. See nephrology note Kuldip Crisostomo MD Jul 25, 2019 19:04
--- NOTE | 2019-07-25 19:45 | NUR ---
HAND-OFF: Report given to ANTONY THAYER.
--- NOTE | 2019-07-25 19:51 | NUR ---
NURSE NOTES: Received report from ANTONY Couch. S/p blood transfusion. Patient a/a/o x 3, verbalize trouble breathing but refuses breathing treatment at this time. Noticed patient took off the nasal cannula, reinforced and reeducated the need of oxygen. Patient placed nasal cannula back on him by himself, refused staff help. Received report no reaction after blood transfusion but patient refused discharge saying "I am not ready and I don't feel good after the blood transfusion". Patient refused vital signs at this time. Patient verbalized "later in five minutes" and covered himself up with a blanket. Patient IV site dressing soiled. Will follow up when patient allows care to be provided. At this time patient refused every help verbalizing "I need time, I want to rest, and I don't feel good". Will inform the MD. Right side AV shunt noted and right chest permacath noted. Bed placed at the lowest with alarm, brake, and siderails up for safety. Call light placed within reach. Will continue to monitor and provide care as order.
[2019-07-25 20:00] VITALS: BP 139/61
--- NOTE | 2019-07-25 20:20 | NUR ---
NURSE NOTES: Reached regards to patient's status. Informed Dr. Roblero that patient feel not right after the blood transfusion and refuses discharge and all the other care such as vital signs, oxygen delivery from nasal cannula, and respiratory therapy at this time. Dr. Roblero said "discharge the patient, he's going to the residential". Will carry out the order as given and proceed with discharge process. Charge nurse made aware.
--- NOTE | 2019-07-25 20:30 | NUR ---
NURSE NOTES: Given report to ANTONY Delgadillo in [facility]. Informed patient regards to situation. Patient verbalized understanding but still refused to sign the discharge papers.
[2019-07-25] MEDS: Dyna-Hex 2% Top Sol 2oz TOPIC SCH (20:48)
[2019-07-25] MEDS: Epoetin Alfa-EPBX(ESRD on dialysis)10,000 unit/ml vial SUBQ SCH (21:00)
[2019-07-25] MEDS: Atorvastatin 20mg tab ORAL SCH (21:00)
--- NOTE | 2019-07-25 21:36 | NUR ---
NURSE NOTES: Patient refused all his 2100 medications. Patient "I don't feel good. I refuse all medications." Explained and attempted multiple times (more than three) to inform and encourage patient to take scheduled medications. Explained the reasons for medication. Patient continues to refuse. Patient also refused to check his blood sugar. Will continue to monitor and provide other cares as possible.
--- NOTE | 2019-07-25 22:18 | NUR ---
NURSE NOTES: [facility] arrived on the unit around 0. Explained the situation and gave report. Patient at the time of the discharge allowed blood sugar check, vital signs, and signed discharged education document and belongings paper. Patient verbalized understanding about discharge and going back to [facility]. Patient vital signs: 130/61 HR 55 (Asymptomatic) Temp: 97.7 RR20 O2Sat 99% Blood sugar 108. Verbalized "no pain". No skin issues except lacerations all over the body. IV line removed and ID band removed. Went over the belongings with the patient and patient signed. [employer] brought oxygen tank. Patient left the unit at 2218 with 2L O2 via NC. Dialysis patient but MRSA swab not done, patient was positive for MRSA during 07/06/19 admission. Charge nurse made aware. Informed responsible alliance party about the discharge at 2115. All required document given to transportation in confidential envelope. Patient left the unit stable.
--- NOTE | 2019-07-26 05:15 | Progress Note ---
DATE: 07/25/2019 SUBJECTIVE: The patient is agitated, has poor insight, covering his head with a sheet. Uncooperative during the examination. Poor memory. He has been also refusing medications. Uncooperative. MENTAL STATUS EXAMINATION: The patient is alert, oriented times self and place. Mood is irritable. Affect is constricted, congruent with mood. Thought process is concrete. Thought content, no suicidal or homicidal ideation. ASSESSMENT: 1. Cognitive impairment. 2. Agitation. PLAN: We will continue current medications. Provide the patient with reality orientation. Donald Yanes M.D. DR: JOHNATHAN JOB#: [id number] CC:
[2019-07-26] MEDS ORDERED: Heparin Sod 1000 units/ml 10ml IV PRN (06:00)
--- NOTE | 2019-07-26 12:09 | Discharge Summary ---
Discharge Summary Discharge Summary _ DATE OF ADMISSION: 07/19/2019 DATE OF DISCHARGE: 07/25/2019 DISCHARGED BY: Dr. Roblero REASON FOR ADMISSION: 63 years old male with past medical history of end-stage renal disease, on hemodialysis, diabetes mellitus with gastroparesis and neuropathy, cardiomyopathy with EF 25%, hypertension, GERD, noncompliance with dialysis and medication, was sent from the halfway facility due to shortness of breath. Patient apparently was refusing dialysis at the nursing facility. Patient was also complaining of skin rash. Upon evaluation vitals signs were stable , pulse oximetry was 99% on 4 L of oxygen via nasal cannula. Laboratory work-up revealed no leukocytosis , hemoglobin 7, hematocrit 22.6 with MCV of 98. Potassium 5.2. BUN 111, creatinine 10.2 Glucose 125 Troponin - 0.201; pro BNP > 35,000. Stable LFT. AST 49 , ALT 102 , lipase 129 . EKG revealed sinus rhythm, no acute ischemic changes. Chest x-ray demonstrated congestive heart failure and suspected bilateral pleural effusion. Patient admitted to telemetry floor for further management. CONSULTANTS: circus train supervisor Dr. Resendiz pulmonary Dr. Mercer wharf helper Dr. Justin Hutson psychiatrist [facility]: Patient admitted to telemetry floor. Dyspnea was likely secondary to pulmonary edema due to noncompliance with hemodialysis as well as due to CHF and severe anemia. On previous admission echocardiogram was done and revealed significant cardiomyopathy with ejection fraction 25%. Moderate to severe mitral and tricuspid regurgitation. Severe pulmonary hypertension Hemodialysis was urgently arranged by wharf helper with close monitoring of volumes and cardiorenal parameters. Electrolytes corrected as needed. [facility] facility medication were resumed. Supplemental oxygen provided as needed to keep pulse oximetry above 92% , and handheld nebulizing therapy with bronchodilator provided. Serial troponin trended ; second troponin trended down to 0.149. Troponin was minimally elevated and trended down . EKG revealed no acute ischemic changes. Patient did not complain of chest pain. Per circus train supervisor , troponin elevation was likely troponin leak secondary to renal failure. Patient declined stress test on previous admission as well as on this admission. Antiplatelet therapy with aspirin, beta blockage and statin were continued. Patient will need close monitoring of LFTs while on statin, as they were minimally elevated. No ASHLEY inhibitor given hyperkalemia and noncompliance with hemodialysis. Patient started on combination of Isordil and hydralazine as per circus train supervisor. Reading Specialist recommended only spot doses of Lasix as needed. Blood pressure was managed with current medication regimen . Cardiac furnace filler followed. Patient had long-standing first-degree AV block and occasional asymptomatic Mobitz 1 second-degree AV block , possibly due to hyperkalemia . Per circus train supervisor , patient will need ischemic evaluation and medical optimization first, and then may be a candidate for ICD. Blood sugar was managed with sliding scale of insulin.Hemoglobin A1c at goal. Hemoglobin and hematocrit were closely monitored with goal to keep hemoglobin above 7. Anemia work-up was consistent with anemia of chronic disease. Patient was started on Epogen as per wharf helper. Patient undergone transfusion of 1 unit of packed red blood cells while in the hospital for hemoglobin 6.9 prior to discharge. Platelet counts were closely monitored. Abdominal ultrasound was checked given elevated LFT and low platelets , which revealed hepatomegaly , splenomegaly , increased renal echogenicity consistent with chronic medical disease. Mild gallbladder wall thickening , no gallstones, wall thickening probably due to hepatocellular disease. Patient intially undergone treatment with ivermectin and Elimite for possible scabies. Antipruritic provided as needed. Patient was counseled on smoking cessation. Patient declined nicotine patch. Fall precaution maintained. Patient was working with physical therapist. DVT and GI prophylaxis provided. Psychiatry seen and evaluated patient . Psychiatric medication regimen was optimized. Patient was provided with reality orientation. Patient clinically stabilized. Prior to discharge all electrolytes stable. Hyperkalemia resolved. Platelet count 125 . Patient was encouraged compliance with hemodialysis and medications. Patient was discharged to the halfway facility for continuation of care. FINAL DIAGNOSES: Pulmonary edema Congestive heart failure with systolic dysfunction Bilateral pleural effusion Cardiomyopathy with ejection fraction 25% End-stage renal disease on hemodialysis Elevated troponin, likely troponin leak secondary to renal failure Asymptomatic Mobitz 1 second-degree AV block First-degree AV block Hyperkalemia Noncompliance with hemodialysis Hypertension Diabetes mellitus type 2 with diabetic neuropathy and gastroparesis Severe pulmonary hypertension Anemia chronic kidney disease Moderate to severe mitral and tricuspid regurgitation Thrombocytopenia Possible scabies Tobacco abuse disorder Psychotic disorder, not otherwise specified Cognitive impairment Agitation DISCHARGE MEDICATIONS: See Medication Reconciliation list. DISCHARGE INSTRUCTIONS: Patient was discharged to the halfway facility. Follow up with medical doctor at the facility. Montserrat Martin NP Jul 26, 2019 12:09
== END 2019-07-25 22:20 | DRG 291 ==
LOC: EDBD 10:24 → EMR 10:43 → 2E 12:12 → EDBEDREQ 12:58 → 2E 07-21 22:05 → 4E 07-23 16:29
PROC: 5A1D70Z Performance of Urinary Filtration, Intermittent, Less than 6 Hours Per Day (ICD-10-PCS; principal; 2019-07-20)
PROC: 30233N1 Transfusion of Nonautologous Red Blood Cells into Peripheral Vein, Percutaneous Approach (ICD-10-PCS; 2019-07-25)
DX: I13.2 Hypertensive heart and chronic kidney disease with heart failure and with stage 5 chronic kidney disease, or end stage renal disease (principal); I50.23 Acute on chronic systolic (congestive) heart failure; N18.6 End stage renal disease; E11.22 Type 2 diabetes mellitus with diabetic chronic kidney disease; Z99.2 Dependence on renal dialysis; Z91.15 Patient's noncompliance with renal dialysis; E87.70 Fluid overload, unspecified; I42.9 Cardiomyopathy, unspecified; I44.1 Atrioventricular block, second degree; I44.0 Atrioventricular block, first degree; E87.5 Hyperkalemia; E11.43 Type 2 diabetes mellitus with diabetic autonomic (poly)neuropathy; K31.84 Gastroparesis; I27.20 Pulmonary hypertension, unspecified; D63.1 Anemia in chronic kidney disease; I34.0 Nonrheumatic mitral (valve) insufficiency; I36.1 Nonrheumatic tricuspid (valve) insufficiency; D69.6 Thrombocytopenia, unspecified; B86 Scabies; F17.200 Nicotine dependence, unspecified, uncomplicated; F29 Unspecified psychosis not due to a substance or known physiological condition; R45.1 Restlessness and agitation; K21.9 Gastro-esophageal reflux disease without esophagitis; R53.81 Other malaise
CPT/HCPCS: 36415; 70450; 71045; 76700; 80048; 80053; 80061; 82962; 83036; 83540; 83550; 83690; 83880; 84100; 84443; 84484; 85007; 85025; 86850; 86900; 86901; 86920; 87081; 93005; 94640; 94664; 99285; J1815; J2405; J7620

== ENCOUNTER 2019-08-20 11:41 | Inpatient (IN) | payer MEDICARE, OTHER ==
[~2019-08-20] VITALS: Ht 172.7 cm; Wt 94.8 kg
[~2019-08-20 11:41] MED LIST changes: +APRESOLINE10 MG ORAL; +ASPIRIN81 MG ORAL; +BENADRYL25 MG ORAL; +CATAPRES0.1 MG ORAL; +DOCUSATE SODIU100 MG ORAL; +EPOGEN3000 UNIT/ SUBQ; +HEPARIN SO5000 UNIT2 SUBQ; +LEXAPRO10 MG ORAL; +MIRALAX119 GM ORAL; +POLYETHYLENE GL17 GM ORAL; +ZOFRAN ODT8 MG ORAL
--- NOTE | 2019-08-20 11:50 | NUR ---
ED Nurse Note: Patient brought into ED from [facility] by [facility] due to penile/scrotal swelling, redness for the past 4 days. patient is alert awake x2, patient placed on a cardiac montior, on a hospital gown.
[2019-08-20 12:01] VITALS: BP 162/71
[2019-08-20 12:30] LABS: BASOPHILS % (AUTO) 0.5 % (0.0-2.0); EOSINOPHILS % (AUTO) 5.3 % (0.0-3.0); HEMATOCRIT 29.3 % (42.0-52.0); HEMOGLOBIN 9.1 G/DL (14.2-18.0); LYMPHOCYTES % (AUTO) 10.3 % (20.0-45.0); MEAN CORPUSCULAR VOLUME 96 FL (80-99); MONOCYTES % (AUTO) 6.4 % (1.0-10.0); NEUTROPHILS % (AUTO) 77.5 % (45.0-75.0); PLATELET COUNT 119 K/UL (150-450); RED BLOOD COUNT 3.06 M/UL (4.70-6.10); WHITE BLOOD COUNT 10.1 K/UL (4.8-10.8)
[2019-08-20 12:42] LABS: ANION GAP 11 mmol/L (5-15); BLOOD UREA NITROGEN 62 mg/dL (7-18); CALCIUM 10.4 MG/DL (8.5-10.1); CARBON DIOXIDE 27 MMOL/L (21-32); CHLORIDE 102 MMOL/L (98-107); POTASSIUM 4.8 MMOL/L (3.5-5.1); SODIUM 139 MMOL/L (136-145)
[2019-08-20 12:44] LABS: INR 1.1 (0.9-1.1)
[2019-08-20 12:47] LABS: ALANINE AMINOTRANSFERASE 43 U/L (12-78); ALBUMIN 2.9 G/DL (3.4-5.0); ALBUMIN/GLOBULIN RATIO 0.6 (1.0-2.7); ALKALINE PHOSPHATASE 252 U/L (46-116); ASPARTATE AMINO TRANSFERASE 31 U/L (15-37); BILIRUBIN,TOTAL 0.5 MG/DL (0.2-1.0); CREATINE KINASE 120 U/L (26-308)
--- NOTE | 2019-08-20 13:07 | NUR ---
ED Nurse Note: patient reports he produces very little urine, Dr. Mahoney notified, per Dr. Mahoney, ok for not collecting urine sample at this time.
--- NOTE | 2019-08-20 13:20 | Diagnostic Imaging Report ---
Indication: Abdominal pain Comparison: None Single view of the abdomen obtained Findings: Bowel gas pattern is nonspecific. No mass, ectopic calcifications, or abnormal gas collections are identified. Degenerative changes of the spine are present with generalized osteopenia. Pins are noted traversing the right femoral neck. Extensive vascular calcifications are present. Impression: No acute findings
--- NOTE | 2019-08-20 13:21 | Diagnostic Imaging Report ---
Indication: Cough Comparison: 07/19/2019 A single view chest radiograph was obtained. Findings: The heart is enlarged. There are bilateral pleural effusions present. There is a right permacath. Bones are osteopenic. Mild interstitial edema may be present. IMPRESSION: No change from the prior examination. Bilateral pleural effusions suspected. Mild interstitial edema may be present. Correlate clinically
--- NOTE | 2019-08-20 13:43 | Emergency Room Report ---
History of Present Illness General Chief Complaint: Male Urogenital Problems Source: Patient, Medical Record, EMS Present Illness HPI Patient sent in for swelling in his testicles. He states that they were worse than they are now and they have improved somewhat. He denies pain at the moment but had pain in the past. He produces a minimal amount of urine and denies dysuria. He also has swelling in his legs. When asked he is on aware of diagnosis of cirrhosis or portal hypertension. He has some rashes on both of his lower extremities and also some areas of itching and scratching in his groin. Patient has dialysis Tuesday and Tuesday. He was supposed to have dialysis today but this was not performed. No fevers, chills, sore throat, chest pain, palpitations, nausea, vomiting, diarrhea, abdominal pain, shortness of breath, joint pain, depression, anxiety, visual changes, dizziness, headache. Ultrasound in June revealed question of portal hypertension. Patient was discharged July 25 with these discharge diagnoses: Pulmonary edema Congestive heart failure with systolic dysfunction Bilateral pleural effusion Cardiomyopathy with ejection fraction 25% End-stage renal disease on hemodialysis Elevated troponin, likely troponin leak secondary to renal failure Asymptomatic Mobitz 1 second-degree AV block First-degree AV block Hyperkalemia Noncompliance with hemodialysis Hypertension Diabetes mellitus type 2 with diabetic neuropathy and gastroparesis Severe pulmonary hypertension Anemia chronic kidney disease Moderate to severe mitral and tricuspid regurgitation Thrombocytopenia Possible scabies Tobacco abuse disorder Psychotic disorder, not otherwise specified Cognitive impairment Agitation Allergies: Coded Allergies: No Known Allergies (Unverified , 07/06/19) Patient History Past Medical History: see triage record Past Surgical History: other - Vas Cath R chest Social History: Denies: smoking - Former, alcohol use - Former, drug use Social History Narrative SNF Reviewed Nursing Documentation: PMH: Agreed; PSxH: Agreed Nursing Documentation-PMH Past Medical History: No History, Except For Hx Cardiac Problems: Yes Hx Hypertension: Yes Hx Diabetes: Yes Hx Cancer: No Hx Gastrointestinal Problems: Yes - GERD Hx Dialysis: Yes - (M, W, F) Hx Neurological Problems: No Hx Cerebrovascular Accident: No Hx Transient Ischemic Attacks: No Hx Dementia: No Hx Alzheimer's Disease: No Hx Parkinson's Disease: No Hx Meningitis: No Hx Encephalitis: No Hx Seizures: No Hx Epilepsy: No Hx Multiple Sclerosis: No Hx Cerebral Palsy: No Hx Amyotrophic Lat Sclerosis: No Hx Guillian-[place] Syndrome: No Hx Paralysis: No Hx Peripheral Neuropathy: No Hx Spinal Cord Injury: No Hx Head Trauma: No Hx Traumatic Brain Injury: No Hx Memory Loss: No Hx Concentration Difficulty: No Hx Speech Problem: No Hx Tremors: No Hx Vertigo: No Hx Dizziness: No Hx Syncope: No Hx Headaches: No Hx Aphasia: No Hx Dysphasia: No Hx Numbness: No Hx Weakness: No Hx Fatigue: No Hx Neurologic Surgery: No Hx Brain Shunt: No Review of Systems All Other Systems: negative except mentioned in HPI Physical Exam Vital Signs Date Time Temp Pulse Resp B/P (MAP) Pulse Ox O2 Delivery O2 Flow Rate FiO2 08/20/19 11:43 97.7 59 18 160/82 (108) 96 Nasal Cannula 1.0 Sp02 EP Interpretation: reviewed, normal General Appearance: well appearing, no apparent distress, GCS 15, non-toxic Head: normocephalic, atraumatic Eyes: bilateral eye normal inspection, bilateral eye PERRL, bilateral eye EOMI ENT: moist mucus membranes Neck: supple Respiratory: lungs clear, normal breath sounds, other - Vas-Cath right chest Cardiovascular #1: regular rate, rhythm, edema - Bilateral lower extremities and also scrotal Cardiovascular #2: 2+ radial (R) Gastrointestinal: normal inspection, normal bowel sounds, non tender, no mass, non-distended Genitourinary: no CVA tenderness, other - Uncircumcised with scrotal edema no erythema Musculoskeletal: back normal, no calf tenderness Neurologic: alert, motor strength/tone normal, DTRs symmetric, sensory intact, speech normal, oriented - X2 Psychiatric: other - Flat affect but answers questions seemingly appropriately Skin: other - Excoriations groin, mild erythema lower extremities Medical Decision Making Diagnostic Impression: Primary Impression: Elevated troponin Additional Impressions: End stage renal disease on dialysis Scrotal swelling Portal hypertension Edema Qualified Codes: R60.0 - Localized edema ER Course Patient presents with scrotal edema and lower extremity edema. Differential includes right-sided heart failure, portal hypertension, cirrhosis, cellulitis, DVT amongst others. There is no evidence of Benjamin's gangrene. Clinically no evidence of left heart failure however this needs to be evaluated. Evaluation with EKG, chest x-ray and labs. As the patient is on dialysis diuresis is not possible. The patient states that the edema has been worse in the past. EKG with bradycardia no injury. Chest x-ray interstitial edema and possible left-sided effusion with cardiomegaly. Normal white count. Evidence of chronic renal failure without hyperkalemia or acidosis. Positive troponin found by me at 1:35. Aspirin and nitroglycerin paste ordered. Patient still denies chest pain. Due to the elevated troponin patient needs admission to the hospital for observation and repeated troponin measurements. Consideration of excess body fluid removal during dialysis to help with edema. Patient had adequate oxygen saturations however request to be placed on oxygen. Patient admitted to telemetry Dr. Roblero. Laboratory Tests Test 08/20/19 12:00 08/20/19 17:15 White Blood Count 10.1 K/UL (4.8-10.8) Red Blood Count 3.06 M/UL (4.70-6.10) L Hemoglobin 9.1 G/DL (14.2-18.0) L Hematocrit 29.3 % (42.0-52.0) L Mean Corpuscular Volume 96 FL (80-99) Mean Corpuscular Hemoglobin 29.9 PG (27.0-31.0) Mean Corpuscular Hemoglobin Concent 31.1 G/DL (32.0-36.0) L Red Cell Distribution Width 16.0 % (11.6-14.8) H Platelet Count 119 K/UL (150-450) L Mean Platelet Volume 4.7 FL (6.5-10.1) L Neutrophils (%) (Auto) 77.5 % (45.0-75.0) H Lymphocytes (%) (Auto) 10.3 % (20.0-45.0) L Monocytes (%) (Auto) 6.4 % (1.0-10.0) Eosinophils (%) (Auto) 5.3 % (0.0-3.0) H Basophils (%) (Auto) 0.5 % (0.0-2.0) Prothrombin Time 11.6 SEC (9.30-11.50) H Prothrombin Time INR 1.1 (0.9-1.1) PTT 34 SEC (23-33) H Sodium Level 139 MMOL/L (136-145) Potassium Level 4.8 MMOL/L (3.5-5.1) Chloride Level 102 MMOL/L (98-107) Carbon Dioxide Level 27 MMOL/L (21-32) Anion Gap 11 mmol/L (5-15) Blood Urea Nitrogen 62 mg/dL (7-18) H Creatinine 7.0 MG/DL (0.55-1.30) H Estimate Glomerular Filtration Rate 8.0 mL/min (>60) Glucose Level 120 MG/DL (74-106) H Calcium Level 10.4 MG/DL (8.5-10.1) H Total Bilirubin 0.5 MG/DL (0.2-1.0) Aspartate Amino Transferase (AST) 31 U/L (15-37) Alanine Aminotransferase (ALT) 43 U/L (12-78) Alkaline Phosphatase 252 U/L (46-116) H Total Creatine Kinase 120 U/L (26-308) Troponin I 0.180 ng/mL (0.000-0.056) 0.161 ng/mL (0.000-0.056) Total Protein 8.1 G/DL (6.4-8.2) Albumin 2.9 G/DL (3.4-5.0) L Globulin 5.2 g/dL Albumin/Globulin Ratio 0.6 (1.0-2.7) L Lipase 53 U/L (73-393) L EKG Diagnostic Results Rate: bradycardiac Rhythm: NSR ST Segments: no acute changes - Secondary block Mobitz 1 Rhythm Strip Diag. Results EP Interpretation: yes Rhythm: no PVC's, no ectopy, other - Bradycardia Chest X-Ray Diagnostic Results Chest X-Ray Diagnostic Results : Chest X-Ray Ordered: Yes # of Views/Limited/Complete: 1 View Indication: Other EP Interpretation: Yes Interpretation: no pneumothorax, other - Megaly interstitial edema left pleural effusion Vas-Cath right Impression: Other Electronically Signed by: Electronically signed by Armond Mahoney MD Last Vital Signs Date Time Temp Pulse Resp B/P (MAP) Pulse Ox O2 Delivery O2 Flow Rate FiO2 08/20/19 21:23 148/67 08/20/19 21:23 63 08/20/19 17:17 Nasal Cannula 1.0 08/20/19 15:20 97.7 18 100 Status: improved Disposition: ADMITTED INPATIENT Condition: Serious Referrals: Geovany Roblero MD (PCP) Armond Mahoney MD Aug 20, 2019 13:43
[2019-08-20] MEDS ORDERED: Nitroglycerin 2% oint pkt TOPIC ONE (13:45)
[2019-08-20 13:57] VITALS: BP 167/71
[2019-08-20 15:12] VITALS: BP 149/60
--- NOTE | 2019-08-20 15:15 | NUR ---
ED Nurse Note: report given to Jade HARDY, endorsed all plan of care to Jade HARDY.
--- NOTE | 2019-08-20 15:20 | NUR ---
ED Nurse Note: patient transferred to 2E with all of his belongings on ACLS protocol
--- NOTE | 2019-08-20 15:30 | NUR ---
NURSE NOTES: pt arrived to Tele, line ordering clinician was put on pt. Pt does not show any cardiac or respiratory distress at this time. pt. has scratches all over body. Pt has penille swelling and redness. pt is DNR per POLSt. Pt was swabbed in ED awaiting results. pt has R upper chest rachel Catheter for dialysis. Advised doctor Mercer Pt missed dialysis today. pt has IV on L Hand 18g. Addendum: 08/20/19 at 1656 by Jade Melvin RN [facility] condition, line ordering clinician was put on pt. Pt does not show any cardiac or respiratory distress at this time. pt. has scratches all over body. Pt has penille swelling and redness. pt is DNR per POL. Pt was swabbed in ED awaiting results. pt has R upper chest rachel Catheter for dialysis. Advised doctor Mercer Pt missed dialysis today. pt has IV on L Hand 18g. Pt vital signs are stable bp 163/73, HR 60 R20 O296 T97.5. pt refused to sign [place], Sientra phone at bedside.
[2019-08-20] MEDS ORDERED: Miralax 17gm pkt ORAL PRN (16:45)
[2019-08-20] MEDS ORDERED: Albuterol/Ipratropium 3ml neb HHN PRN (16:45)
--- NOTE | 2019-08-20 17:38 | NUR ---
NURSE NOTES: pt code status was changed as per AUGUSTINE, pt should be DNR. Advised, Doctor Sylvie about changing pt to DNI as well, waiting for response. Also pt has been coughing doctor was notified.
[2019-08-20] MEDS: HydrALAZINE 10mg Tab ORAL SCH ×3 (18:00→21:23)
[2019-08-20] MEDS: Docusate 100mg cap ORAL SCH ×2 (18:00→18:06)
--- NOTE | 2019-08-20 18:13 | NUR ---
NURSE NOTES: pt refused 1800 medication hydralazine and colace because he said he is coughing too much and he will throw them up.
--- NOTE | 2019-08-20 18:59 | NUR ---
NURSE NOTES: pt asked for pain meds but refused it after it was opened because he wants to have the ointment cream and pain meds together.
[2019-08-20 20:00] VITALS: BP 148/67
--- NOTE | 2019-08-20 20:15 | NUR ---
NURSE NOTES: Received report from ANTONY Hansen. Patient is awake, lying in semi purdy's; resting comfortably. Complains of pain at both scrotum, nonradiating, with a pain scale of 5/10. No signs of acute distress noted. Checked IV site and flushed. No erythema, bleeding or infiltration noted. Bed at lowest position, brakes on, siderailsx2. Call light within reach. Will continue to monitor.
--- NOTE | 2019-08-20 20:24 | NUR ---
HAND-OFF: Report given to Cailin/ANTONY, endorsed pt refused all meds for me including pain and blood pressure meds.
[2019-08-20] MEDS: Heparin 5000 units/ml inj SUBQ SCH (21:00)
[2019-08-20] MEDS: Carvedilol 12.5mg tab ORAL SCH (21:23)
[2019-08-21] VITALS: BP 147/70
--- NOTE | 2019-08-21 01:52 | NUR ---
NURSE NOTES: Resting throughout the night. No significant change of condition noted. Will continue to monitor.
[2019-08-21 04:00] VITALS: BP 152/74
[2019-08-21 07:05] LABS: BASOPHILS % (AUTO) 0.6 % (0.0-2.0); EOSINOPHILS % (AUTO) 5.5 % (0.0-3.0); HEMATOCRIT 29.3 % (42.0-52.0); HEMOGLOBIN 9.1 G/DL (14.2-18.0); LYMPHOCYTES % (AUTO) 9.4 % (20.0-45.0); MEAN CORPUSCULAR VOLUME 95 FL (80-99); MONOCYTES % (AUTO) 6.9 % (1.0-10.0); NEUTROPHILS % (AUTO) 77.5 % (45.0-75.0); PLATELET COUNT 123 K/UL (150-450); RED BLOOD COUNT 3.08 M/UL (4.70-6.10); RED CELL DISTRIBUTION WIDTH 16.2 % (11.6-14.8); WHITE BLOOD COUNT 9.8 K/UL (4.8-10.8)
--- NOTE | 2019-08-21 07:25 | NUR ---
HAND-OFF: Report given to ANTONY Tong. Plan of care endorsed.
[2019-08-21 07:28] LABS: ALBUMIN 2.9 G/DL (3.4-5.0); ANION GAP 13 mmol/L (5-15); BLOOD UREA NITROGEN 72 mg/dL (7-18); CALCIUM 10.5 MG/DL (8.5-10.1); CARBON DIOXIDE 25 MMOL/L (21-32); CHLORIDE 101 MMOL/L (98-107); CREATININE 7.8 MG/DL (0.55-1.30); PHOSPHORUS 7.8 MG/DL (2.5-4.9); POTASSIUM 5.3 MMOL/L (3.5-5.1); SODIUM 139 MMOL/L (136-145)
--- NOTE | 2019-08-21 07:48 | NUR ---
NURSE NOTES: Pt awake/alert sitting at edge of bed, eating breakfast, breathing easily on 1 lpm nasal cannula, denies SOB and denies pain at this time. Vital signs stable with SR 1st deg at 65. IV access LH, flushed with 10 ml NS and locked. Pt refusing to take Tylenol previously given by cook night, told he needed to take it now or it would be thrown away. Pt stated "you're not throwing anything away" and gripped the medication in his fist. It was necessary to pry the fingers open in order to remove the medication to dispose of. Bed left in low position, side rails up x 2 and call light left near pt's hand.
[2019-08-21 08:00] VITALS: BP 156/69
[2019-08-21] MEDS: Heparin 5000 units/ml inj SUBQ SCH ×2 (09:00→20:59)
[2019-08-21] MEDS: HydrALAZINE 10mg Tab ORAL SCH ×4 (10:07→20:57)
[2019-08-21] MEDS: Carvedilol 12.5mg tab ORAL SCH ×2 (10:07→20:57)
[2019-08-21] MEDS: Docusate 100mg cap ORAL SCH ×3 (10:07→17:43)
[2019-08-21] MEDS: Nephrovite tab (Rena-Vite) ORAL SCH (10:07)
--- NOTE | 2019-08-21 11:36 | Consultation ---
History of Present Illness General Date patient seen: Aug 21, 2019 Chief Complaint: Male Urogenital Problems Present Illness HPI 63 years old male with past medical history of end-stage renal disease, on hemodialysis, diabetes mellitus with gastroparesis and neuropathy, GERD, hypertension, noncompliance, alf resident was brought in last night to ER with multiple complaints including general weakness, abdominal pain, penile swelling. His CXR showed bilateral pleural effusion and pulmonary edema. Allergies: Coded Allergies: No Known Allergies (Unverified , 07/06/19) Medication History Scheduled Aspirin* (Aspirin*), 81 MG ORAL DAILY, (Reported) Carvedilol (Coreg), 12.5 MG ORAL EVERY 12 HOURS Docusate Sodium* (Docusate Sodium*), 100 MG ORAL THREE TIMES A DAY, (Reported) Epoetin Garrett (Epogen), 3,000 UNIT SUBQ 3XW, (Reported) Escitalopram Oxalate* (Lexapro*), 10 MG ORAL DAILY Famotidine (Famotidine), 20 MG ORAL DAILY Heparin Sod (Porcine) (Heparin Sodium*), 5,000 UNITS SUBQ EVERY 12 HOURS, ( Reported) Hydralazine HCl (Hydralazine HCl), 10 MG ORAL QID Insulin Aspart (Novolog Flexpen), 0 UNITS SUBQ BEFORE MEALS AND HS Vitamin B Cmplx/Vit C/Folic AC (Nephro-Eduar Tablet), 1 TAB ORAL DAILY Vitamin B Cmplx/Vit C/Folic AC (Nephro-Eduar Tablet), 1 TAB ORAL DAILY, (Reported ) Scheduled PRN Clonidine Hcl* (Catapres*), 0.1 MG ORAL EVERY 4 HOURS PRN for For High Blood Pressure, (Reported) Diphenhydramine Hcl* (Benadryl*), 25 MG ORAL Q6H PRN for Itching, (Reported) Ondansetron Odt* (Zofran Odt*), 4 MG ORAL Q6H PRN for Nausea & Vomiting, ( Reported) Polyethylene Glycol 3350 (Miralax), 17 GM ORAL HSPRN PRN Polyethylene Glycol 3350* (Polyethylene Glycol 3350*), 17 GM ORAL BEDTIME PRN for Constipation, (Reported) Patient History Healthcare decision maker Resuscitation status Do Not Resuscitate Advanced Directive on File No Past Medical/Surgical History Past Medical/Surgical History: (1) Mobitz (type) I (Elis's) atrioventricular block (2) First degree AV block (3) Diabetes mellitus (4) Physical debility (5) Noncompliance with renal dialysis (6) HTN (hypertension) (7) ESRD needing dialysis Review of Systems Endocrine: Reports: no symptoms Hematologic/Lymphatic: Reports: no symptoms All Other Systems: negative except mentioned in HPI Physical Exam General Appearance: WD/WN Lines, tubes and drains: peripheral HEENT: normocephalic, atraumatic Neck: non-tender, normal alignment Respiratory/Chest: chest wall non-tender, lungs clear Breasts: no masses Cardiovascular/Chest: normal peripheral pulses, normal rate Abdomen: normal bowel sounds Genitourinary/Rectal: normal genital exam, normal rectal exam Extremities: normal range of motion, non-tender Skin Exam: normal pigmentation Neurologic: tool smith II-XII grossly normal Last 24 Hour Vital Signs Date Time Temp Pulse Resp B/P (MAP) Pulse Ox O2 Delivery O2 Flow Rate FiO2 08/21/19 10:07 156/69 08/21/19 10:07 65 156/69 08/21/19 08:58 Nasal Cannula 1.0 08/21/19 08:00 65 08/21/19 08:00 97.7 63 20 156/69 (98) 93 08/21/19 04:00 97.2 60 18 152/74 (100) 95 08/21/19 04:00 57 08/21/19 00:00 98.0 57 17 147/70 (95) 93 08/21/19 00:00 46 08/20/19 21:54 98.0 08/20/19 21:23 148/67 08/20/19 21:23 63 148/67 08/20/19 21:00 Nasal Cannula 1.0 08/20/19 20:00 97.2 63 17 148/67 (94) 93 08/20/19 20:00 62 08/20/19 17:17 Nasal Cannula 1.0 08/20/19 15:20 97.7 60 18 149/60 100 Nasal Cannula 1.0 08/20/19 15:12 97.7 60 18 149/60 100 Nasal Cannula 1.0 08/20/19 13:57 97.7 57 17 167/71 99 Nasal Cannula 1.0 08/20/19 13:57 167/71 08/20/19 12:01 97.7 58 19 162/71 99 Nasal Cannula 1.0 08/20/19 11:43 97.7 59 18 160/82 (108) 96 Nasal Cannula 1.0 Intake and Output 08/20/19 08/21/19 19:00 07:00 Intake Total 120 ml 120 ml Output Total 100 ml 100 ml Balance 20 ml 20 ml Intake Oral 120 ml 120 ml Output Urine Total 100 ml 100 ml # Voids 2 # Bowel Movements 1 1 Laboratory Tests Test 08/20/19 12:00 08/20/19 17:15 08/21/19 06:09 White Blood Count 10.1 K/UL (4.8-10.8) 9.8 K/UL (4.8-10.8) Red Blood Count 3.06 M/UL (4.70-6.10) L 3.08 M/UL (4.70-6.10) L Hemoglobin 9.1 G/DL (14.2-18.0) L 9.1 G/DL (14.2-18.0) L Hematocrit 29.3 % (42.0-52.0) L 29.3 % (42.0-52.0) L Mean Corpuscular Volume 96 FL (80-99) 95 FL (80-99) Mean Corpuscular Hemoglobin 29.9 PG (27.0-31.0) 29.5 PG (27.0-31.0) Mean Corpuscular Hemoglobin Concent 31.1 G/DL (32.0-36.0) L 31.0 G/DL (32.0-36.0) L Red Cell Distribution Width 16.0 % (11.6-14.8) H 16.2 % (11.6-14.8) H Platelet Count 119 K/UL (150-450) L 123 K/UL (150-450) L Mean Platelet Volume 4.7 FL (6.5-10.1) L 5.2 FL (6.5-10.1) L Neutrophils (%) (Auto) 77.5 % (45.0-75.0) H 77.5 % (45.0-75.0) H Lymphocytes (%) (Auto) 10.3 % (20.0-45.0) L 9.4 % (20.0-45.0) L Monocytes (%) (Auto) 6.4 % (1.0-10.0) 6.9 % (1.0-10.0) Eosinophils (%) (Auto) 5.3 % (0.0-3.0) H 5.5 % (0.0-3.0) H Basophils (%) (Auto) 0.5 % (0.0-2.0) 0.6 % (0.0-2.0) Prothrombin Time 11.6 SEC (9.30-11.50) H Prothromb Time International Ratio 1.1 (0.9-1.1) Activated Partial Thromboplast Time 34 SEC (23-33) H Sodium Level 139 MMOL/L (136-145) 139 MMOL/L (136-145) Potassium Level 4.8 MMOL/L (3.5-5.1) 5.3 MMOL/L (3.5-5.1) H Chloride Level 102 MMOL/L (98-107) 101 MMOL/L (98-107) Carbon Dioxide Level 27 MMOL/L (21-32) 25 MMOL/L (21-32) Anion Gap 11 mmol/L (5-15) 13 mmol/L (5-15) Blood Urea Nitrogen 62 mg/dL (7-18) H 72 mg/dL (7-18) H Creatinine 7.0 MG/DL (0.55-1.30) H 7.8 MG/DL (0.55-1.30) H Estimat Glomerular Filtration Rate 8.0 mL/min (>60) 7.1 mL/min (>60) Glucose Level 120 MG/DL (74-106) H 98 MG/DL (74-106) Calcium Level 10.4 MG/DL (8.5-10.1) H 10.5 MG/DL (8.5-10.1) H Total Bilirubin 0.5 MG/DL (0.2-1.0) Aspartate Amino Transf (AST/SGOT) 31 U/L (15-37) Alanine Aminotransferase (ALT/SGPT) 43 U/L (12-78) Alkaline Phosphatase 252 U/L (46-116) H Total Creatine Kinase 120 U/L (26-308) Troponin I 0.180 ng/mL (0.000-0.056) 0.161 ng/mL (0.000-0.056) 0.130 ng/mL (0.000-0.056) Total Protein 8.1 G/DL (6.4-8.2) Albumin 2.9 G/DL (3.4-5.0) L 2.9 G/DL (3.4-5.0) L Globulin 5.2 g/dL Albumin/Globulin Ratio 0.6 (1.0-2.7) L Lipase 53 U/L (73-393) L Phosphorus Level 7.8 MG/DL (2.5-4.9) H Microbiology Date/Time Source Procedure Growth Status 08/20/19 15:00 Rectum Received Height (Feet): 5 Height (Inches): 8.00 Weight (Pounds): 262 Medications Current Medications Medications (Trade) Dose Ordered Sig/Trav Route PRN Reason Start Time Stop Time Status Last Admin Dose Admin Acetaminophen (Tylenol) 650 mg Q4H PRN ORAL Fever 08/20/19 16:45 09/19/19 16:44 08/21/19 10:15 Albuterol/ Ipratropium (Albuterol/ Ipratropium) 3 ml Q4H PRN HHN Shortness of Breath 08/20/19 16:45 08/25/19 16:44 Carvedilol (Coreg) 12.5 mg EVERY 12 HOURS ORAL 08/20/19 21:00 09/19/19 20:59 08/21/19 10:07 Clonidine HCl (Catapres Tab) 0.1 mg Q4H PRN ORAL SBP>160 08/20/19 16:30 09/19/19 16:29 Dextrose (Dextrose 50%) 25 ml Q30M PRN IV Hypoglycemia 08/20/19 16:45 09/19/19 16:44 Dextrose (Dextrose 50%) 50 ml Q30M PRN IV Hypoglycemia 08/20/19 16:45 09/19/19 16:44 Docusate Sodium (Colace) 100 mg THREE TIMES A DAY ORAL 08/20/19 18:00 09/19/19 17:59 08/21/19 10:07 Escitalopram Oxalate (Lexapro) 10 mg DAILY ORAL 08/21/19 09:00 09/20/19 08:59 08/21/19 10:07 Heparin Sodium (Porcine) (Heparin 5000 units/ml) 5,000 units EVERY 12 HOURS SUBQ 08/20/19 21:00 09/19/19 20:59 Hydralazine HCl (Apresoline) 10 mg QID ORAL 08/20/19 18:00 09/19/19 17:59 08/21/19 10:07 Ondansetron HCl (Zofran) 4 mg Q6H PRN IVP Nausea & Vomiting 08/20/19 16:45 09/19/19 16:44 Polyethylene Glycol (Miralax) 17 gm DAILYPRN PRN ORAL Constipation 08/20/19 16:45 09/19/19 16:44 Temazepam (Restoril) 15 mg HSPRN PRN ORAL Insomnia 08/20/19 16:45 08/27/19 16:44 Vitamin B Complex/ Vit C/Folic Acid (Nephrovite) 1 tab DAILY ORAL 08/21/19 09:00 09/20/19 08:59 08/21/19 10:07 Assessment/Plan Problem List: (1) Pulmonary edema ICD Codes: J81.1 - Chronic pulmonary edema SNOMED: 78327833 (2) Pleural effusion, right ICD Codes: J90 - Pleural effusion, not elsewhere classified SNOMED: 54391050 (3) Balanitis ICD Codes: N48.1 - Balanitis SNOMED: 52725047 (4) ESRD needing dialysis ICD Codes: N18.6 - End stage renal disease; Z99.2 - Dependence on renal dialysis SNOMED: 13796695 (5) Anemia ICD Codes: D64.9 - Anemia, unspecified SNOMED: 636031970 (6) HTN (hypertension) ICD Codes: I10 - Essential (primary) hypertension SNOMED: 08485715 (7) Diabetes mellitus ICD Codes: E11.9 - Type 2 diabetes mellitus without complications SNOMED: 85092205 (8) Noncompliance with renal dialysis ICD Codes: Z91.15 - Patient's noncompliance with renal dialysis SNOMED: 873837040883328 (9) Physical debility ICD Codes: R53.81 - Other malaise SNOMED: 03986853 (10) Scrotal swelling ICD Codes: N50.89 - Other specified disorders of the male genital organs SNOMED: 364027014, 261910578 Assessment/Plan: respiratory treatment check sputum titrate fio2 to sat of 92% Lotrizone for Balanitis HD by nephrology, called sliding scale diabetic diet. Christy Mercer MD Aug 21, 2019 11:36
[2019-08-21 12:00] VITALS: BP 135/86
[2019-08-21] MEDS: HYDROcodone/Acetamin 5/325 tab ORAL PRN (12:53)
[2019-08-21] MEDS: Lotrisone Cream 15gm TOPIC SCH ×2 (12:59→17:44)
--- NOTE | 2019-08-21 15:11 | Cardiology Progress Note ---
Assessment/Plan Assessment/Plan 7932125 not a candidate for adriana i setting of poor dialysis complaince dialyssis a pt allows repeat torp may need to decreae or stop bb i any sig fátima Objective Last 24 Hour Vital Signs Date Time Temp Pulse Resp B/P (MAP) Pulse Ox O2 Delivery O2 Flow Rate FiO2 08/21/19 14:08 97 Nasal Cannula 2.0 28 08/21/19 14:07 58 20 97 Nasal Cannula 2.0 28 08/21/19 12:52 156/69 08/21/19 12:00 96.8 63 20 135/86 (102) 91 08/21/19 10:07 156/69 08/21/19 10:07 65 156/69 08/21/19 08:58 Nasal Cannula 1.0 08/21/19 08:00 65 08/21/19 08:00 97.7 63 20 156/69 (98) 93 08/21/19 04:00 97.2 60 18 152/74 (100) 95 08/21/19 04:00 57 08/21/19 00:00 98.0 57 17 147/70 (95) 93 08/21/19 00:00 46 08/20/19 21:54 98.0 08/20/19 21:23 148/67 08/20/19 21:23 63 148/67 08/20/19 21:00 Nasal Cannula 1.0 08/20/19 20:00 97.2 63 17 148/67 (94) 93 08/20/19 20:00 62 08/20/19 17:17 Nasal Cannula 1.0 08/20/19 15:20 97.7 60 18 149/60 100 Nasal Cannula 1.0 08/20/19 15:12 97.7 60 18 149/60 100 Nasal Cannula 1.0 Intake and Output 08/20/19 08/21/19 19:00 07:00 Intake Total 120 ml 120 ml Output Total 100 ml 100 ml Balance 20 ml 20 ml Intake Oral 120 ml 120 ml Output Urine Total 100 ml 100 ml # Voids 2 # Bowel Movements 1 1 Laboratory Tests Test 08/20/19 17:15 08/21/19 06:09 Troponin I 0.161 ng/mL (0.000-0.056) 0.130 ng/mL (0.000-0.056) White Blood Count 9.8 K/UL (4.8-10.8) Red Blood Count 3.08 M/UL (4.70-6.10) L Hemoglobin 9.1 G/DL (14.2-18.0) L Hematocrit 29.3 % (42.0-52.0) L Mean Corpuscular Volume 95 FL (80-99) Mean Corpuscular Hemoglobin 29.5 PG (27.0-31.0) Mean Corpuscular Hemoglobin Concent 31.0 G/DL (32.0-36.0) L Red Cell Distribution Width 16.2 % (11.6-14.8) H Platelet Count 123 K/UL (150-450) L Mean Platelet Volume 5.2 FL (6.5-10.1) L Neutrophils (%) (Auto) 77.5 % (45.0-75.0) H Lymphocytes (%) (Auto) 9.4 % (20.0-45.0) L Monocytes (%) (Auto) 6.9 % (1.0-10.0) Eosinophils (%) (Auto) 5.5 % (0.0-3.0) H Basophils (%) (Auto) 0.6 % (0.0-2.0) Sodium Level 139 MMOL/L (136-145) Potassium Level 5.3 MMOL/L (3.5-5.1) H Chloride Level 101 MMOL/L (98-107) Carbon Dioxide Level 25 MMOL/L (21-32) Anion Gap 13 mmol/L (5-15) Blood Urea Nitrogen 72 mg/dL (7-18) H Creatinine 7.8 MG/DL (0.55-1.30) H Estimat Glomerular Filtration Rate 7.1 mL/min (>60) Glucose Level 98 MG/DL (74-106) Calcium Level 10.5 MG/DL (8.5-10.1) H Phosphorus Level 7.8 MG/DL (2.5-4.9) H Albumin 2.9 G/DL (3.4-5.0) L Microbiology Date/Time Source Procedure Growth Status 08/20/19 15:00 Rectum Received Nikko Resendiz MD Aug 21, 2019 15:11
[2019-08-21 16:00] VITALS: BP 152/76
--- NOTE | 2019-08-21 16:48 | Cardiology Report ---
APPROVED REPORT EKG Measurement Heart [id number] P20 [id number] Sinus rhythm with 2nd degree AV block (Mobitz I) Nonspecific T wave abnormality Abnormal ECG
--- NOTE | 2019-08-21 17:53 | History & Physical ---
History and Physical History & Physicial chart reviewed full note will follow HD tomorrow Justin Hutson MD Aug 21, 2019 17:53
--- NOTE | 2019-08-21 19:30 | NUR ---
NURSE NOTES: Received report from ANTONY Tong. Patient is asleep, arousable to name, lying in semi purdy's; resting comfortably. A/Ox3-4. Denies pain at this time. No signs of acute distress noted. Checked IV site and flushed. No erythema, bleeding or infiltration noted. Bed at lowest position, brakes on, siderailsx3. Call light within reach. Will continue to monitor.
[2019-08-21 20:00] VITALS: BP 138/79
--- NOTE | 2019-08-21 22:45 | Consultation ---
DATE OF CONSULTATION: 08/20/2019 CARDIOLOGY CONSULTATION CONSULTING PHYSICIAN: Nikko Resendiz M.D. REFERRING PHYSICIAN: Christy Mercer M.D. REASON FOR REFERRAL: Congestive heart failure. HISTORY OF PRESENT ILLNESS: This is a middle-aged gentleman, who is known to me from prior hospitalization and evaluation. The patient was last seen by me on 07/24/2019 basically with congestive heart failure, systolic in origin, diabetes type 2, hypertension, end-stage renal disease, on hemodialysis, hyperkalemia, severe anemia, noncompliance with dialysis, and mitral tricuspid regurgitation, who has been a resident of a convalescent facility. The patient at this time claims is too sleepy to answer my questions and states that he will be more able to answer my questions when he wakes up later, but the chart indicates he was sent in for swelling of his testicles. According to what he described to the emergency room physician, they were worse before and they all somewhat improved. He denied any pain and he indicated that he had minimal urine output. He has got significant swelling in his legs and he is unaware of his diagnoses. Both lower extremities have rash and he has had itching and scratching in his groin. His dialysis is on Tuesday, Tuesday, and Tuesday. Apparently, he had not been getting his dialysis. I am not sure how long he has not been getting his dialysis. There is no reports of any chest pains, shortness or shortness of breath, or other issues according to the emergency room physician's notation. However when he was admitted to the hospital, his chest x-ray was suggestive of pulmonary edema. PAST MEDICAL HISTORY: History of pulmonary edema, congestive heart failure, systolic dysfunction, ejection fraction 25%, bilateral effusion, end-stage renal disease, elevated troponin secondary to renal insufficiency, asymptomatic Mobitz 1 second-degree AV block and first-degree AV block, hyperkalemia, noncompliance with hemodialysis, systemic hypertension, diabetes mellitus with diabetic neuropathy, gastroparesis, pulmonary hypertension, anemia of chronic disease, [id number] mitral and tricuspid regurgitation, thrombocytopenia, possible scabies, tobacco use disorder, psychotic disorder, and cognitive impairment, and agitation. ALLERGIES: Not allergic to any medications. SOCIAL HISTORY: Smokes 1 pack per day. Does not drink alcoholic beverages or use drugs. REVIEW OF SYSTEMS: Really unable to obtain. PHYSICAL EXAMINATION: GENERAL: Shows to be elderly male, drowsy, arousable, responsive, and mumbling. VITAL SIGNS: His blood pressure is 156/69, heart rate is 58, and temperature 96.8. NECK: Supple. LUNGS: Anteriorly appeared to be clear. CARDIAC: Regular rhythm. Holosystolic regurgitant murmur noted. ABDOMEN: Soft and nontender. Positive bowel sounds. EXTREMITY: The eschars from the skin lesions throughout the lower extremity. He has edema extending all the way up to the lateral aspect of both his legs up to about the level of thigh. LABORATORY DATA: His labs reveal white count 9.8, hemoglobin 9.1, and platelet count of 123,000. Sodium is 139, potassium 5.3, chloride 101, bicarb of 25, BUN of 72, creatinine 7.8, and glucose of 98. Calcium is 10.5. Phosphorus is . Troponin 0.180, 0.160, and 0.30. Albumin of 2.9. No coags. INR 1.1 and PTT of 34. His EKG is Mobitz 1 second-degree AV block. No really significant ST or T-wave abnormalities are documented. His chest x-ray shows poor inspiratory effort. This is my reading. The radiologist reading indicates enlarged heart bilateral pleural effusions, right PermCath osteopenic bones, and interstitial edema. ASSESSMENT: 1. Congestive heart failure. 2. Cardiomyopathy. 3. Systemic hypertension. 4. Diabetes mellitus type 2. 5. End-stage renal disease, on hemodialysis. 6. Dialysis noncompliance. 7. Mitral and tricuspid regurgitation. PLAN: This patient was seen in cardiac consultation. The patient's main issue is lack of compliance with dialysis. So for that reason, he has recurrent congestive heart failure. His medications at the convalescent facility were reviewed. He does get from a cardiac point of view, hydralazine 10 mg 4 times a day, aspirin 81 mg a day, Coreg 12.5 mg twice a day. His renal dysfunction likely contributed to his congestive heart failure in addition to the valvular heart disease and his cardiomyopathy. His last echocardiogram that was performed here in June showed ejection fraction 25%, moderate to severe mitral and tricuspid regurgitation being documented. An attempted myocardial perfusion imaging was not assessed as the patient refused stress imaging, therefore it was never done. He should be continued on dialysis as long as he is compliant. He agrees to be compliant. Because of his lack of compliance, I think ASHLEY inhibitors in the setting of renal failure, end-stage renal disease is recommended. The patient will be followed. He is somewhat bradycardic and may need to discontinue the use of beta-blockers in this setting. He does have a POLST form indicating that he does not want to be resuscitated and does not want artificial means of nutrition, request transferred to the hospice only for comfort care, at least this was marked on his POLST form. Nevertheless, team to be followed as much as he allows. Nikko Resendiz M.D. DR: CRISTAL JOB#: [id number] CC:
[2019-08-22] VITALS: BP 126/69
--- NOTE | 2019-08-22 | NUR ---
NURSE NOTES: Called [facility] and spoke with Meena to schedule hemodialysis. Per Meena, informed on-call acute dialysis nurse.
--- NOTE | 2019-08-22 00:30 | History and Physical Report ---
DATE OF ADMISSION: 08/20/2019 CHIEF COMPLAINT: The patient is a 63-year-old male with a history of end-stage renal disease, on hemodialysis, who presents with a chief complaint of scrotal swelling. HISTORY OF PRESENT ILLNESS: The patient was admitted to [facility] from July 19, 2019 to July 25, 2019. Please see history and physical and discharge summary dictated at that time. The patient was discharged to [facility]. The patient presented to [place] emergency room complaining of a two-day history of swelling in his scrotum. The patient states his legs have also been swollen. The patient missed his dialysis on Tuesday, August 20, 2019. The patient was admitted for groin swelling to rule out fluid overload secondary to missed dialysis. REVIEW OF SYSTEMS: CONSTITUTIONAL: The patient denies weight loss or weight gain. The patient denies fevers or chills. HEENT: The patient denies ear or throat pain. The patient denies headache. CARDIOVASCULAR: The patient denies palpitations or chest pain. CHEST: The patient denies wheeze or shortness of breath. ABDOMEN: The patient denies nausea, vomiting, diarrhea, or constipation. GENITOURINARY: The patient complains of scrotal swelling as above. The patient denies dysuria or increased frequency of urination. NEUROMUSCULAR: The patient denies seizures or generalized weakness. PAST MEDICAL HISTORY: Significant for: 1. Congestive heart failure. 2. End-stage renal disease, on hemodialysis every Tuesday, Tuesday, Tuesday. 3. Diabetes type 2. 4. Diabetic gastroparesis. 5. Diabetic neuropathy. 6. Gastroesophageal reflux disease. 7. Hypertension. 8. Mobitz 1 second-degree AV block. 9. First-degree AV block. 10. Cardiomyopathy with an ejection fraction of 25%. PAST SURGICAL HISTORY: Significant for hemodialysis catheter placement. CURRENT MEDICATIONS: 1. Aspirin 81 mg one tablet p.o. daily. 2. Coreg 12.5 mg p.o. twice daily. 3. Clonidine 0.1 mg p.o. q.4 hours p.r.n. 4. Benadryl 25 mg p.o. q.6 hours p.r.n. 5. Colace 100 mg p.o. 3 times daily. 6. Epogen 3000 units subcutaneously 3 times weekly. 7. Lexapro 10 mg p.o. daily. 8. Famotidine 20 mg p.o. daily. 9. Heparin 5000 units subcutaneously twice daily. 10. Hydralazine 10 mg p.o. 4 times daily. 11. NovoLog sliding scale. 12. Zofran 4 mg p.o. q.6 hours p.r.n. 13. MiraLAX 17 g p.o. daily. 14. Vitamin B complex p.o. daily. ALLERGIES: No known drug allergies. SOCIAL HISTORY: The patient is and currently is a resident of [facility]. The patient denies tobacco or alcohol use. PHYSICAL EXAMINATION: VITAL SIGNS: Temperature 97.7, respirations 18, pulse 59, and blood pressure 160/82. GENERAL: The patient is a well-developed and well-nourished male, in no apparent distress. HEENT: Eyes, pupils are equal and responsive to light and accommodation. Extraocular movements are intact. NECK: Supple without lymphadenopathy. CHEST: Lungs are clear to auscultation bilaterally without wheezes or rales. CARDIOVASCULAR: Regular rhythm and rate. S1 and S2 are normal without murmurs, rubs, or gallops. ABDOMEN: Soft, nontender, and nondistended. Positive bowel sounds. No evidence of hepatosplenomegaly. Currently, no rebound or guarding noted. EXTREMITIES: Negative for clubbing, cyanosis, or edema. RECTAL/GENITAL: Not performed. NEUROLOGIC: Cranial nerves II through XII are grossly intact without focal deficits. Motor strength is 5/5 bilaterally. Deep tendon reflexes 2+ plantar. LABORATORY STUDIES: WBC 10.1, hemoglobin 9.1, hematocrit 29.3, and platelets 119,000. Sodium 139, potassium 4.8, chloride 102, CO2 27, BUN 62, creatinine 7.0, and glucose 120. Troponin 0.180. A chest x-ray was reported as interstitial edema consistent with congestive heart failure. An abdominal x-ray was reported as no acute disease. ASSESSMENT: This is a 63-year-old male. 1. Localized edema of the groin. 2. End-stage renal disease. 3. Congestive heart failure. 4. Hypertension. 5. Diabetes type 2. 6. Anemia secondary to renal failure. 7. Mobitz 1 second-degree AV block. 8. First-degree AV block. TREATMENT: 1. Swelling of the groin. This may be secondary to missed dialysis as above. A Nephrology consultation has been obtained with Dr. Hoyos. 2. End-stage renal disease. The patient missed his dialysis on Tuesday, August 12, 2019. As above, a Nephrology consultation has been obtained with Dr. Hoyos. We will follow recommendations of Nephrology. This may be secondary to missed dialysis. A Nephrology consultation has been obtained with Dr. Justin Hutson. 3. End-stage renal disease. The patient is currently undergoing hemodialysis every Tuesday, Tuesday, and Tuesday. As above, a Nephrology consultation has been obtained with Dr. Justin Hutson. 4. Congestive heart failure. The patient's ejection fraction is 25%. A Cardiology consultation is pending with Dr. Nikko Resendiz. 5. Hypertension. Continue Coreg and hydralazine as above. 6. Diabetes type 2. A NovoLog sliding scale has been instituted. 7. Anemia secondary to renal failure. Kuldip Crisostomo M.D. DR: GRACE JOB#: [id number] CC:
[2019-08-22] MEDS: HYDROcodone/Acetamin 5/325 tab ORAL PRN ×2 (02:48→20:19)
[2019-08-22 04:00] VITALS: BP 148/75
--- NOTE | 2019-08-22 04:21 | NUR ---
NURSE NOTES: Resting throughout the night. No significant change of condition noted. Will continue to monitor.
[2019-08-22] MEDS ORDERED: Heparin 1000 units/ml 1ml Vial INJ PRN (06:00)
[2019-08-22] MEDS ORDERED: Heparin Sod 1000 units/ml 10ml IV PRN (06:00)
--- NOTE | 2019-08-22 07:25 | NUR ---
NURSE NOTES: Pt received from ANTONY Simeon in stable condition with no cardiopulmonary distress noted. Pt is awake in bed, AAO x4, on 1L O2 via NC, p, skin alterations noted. pt has a LH 18g IV and Right upper chest permacath for dialysis. Bed commode at bedside, pt agreed to use call light for assist before getting out of bed, Bed in lowest position, alarm on, side rails up x3, call light within reach. Will continue to monitor.
--- NOTE | 2019-08-22 07:25 | NUR ---
HAND-OFF: Report given to ANTONY Mcneil. Plan of care endorsed. Patient is in stable condition.
[2019-08-22 08:00] VITALS: BP 150/80
[2019-08-22 08:28] LABS: BASOPHILS % (AUTO) 0.5 % (0.0-2.0); EOSINOPHILS % (AUTO) 3.8 % (0.0-3.0); HEMATOCRIT 27.6 % (42.0-52.0); HEMOGLOBIN 8.7 G/DL (14.2-18.0); LYMPHOCYTES % (AUTO) 8.4 % (20.0-45.0); MEAN CORPUSCULAR VOLUME 94 FL (80-99); MONOCYTES % (AUTO) 8.3 % (1.0-10.0); PLATELET COUNT 120 K/UL (150-450); RED BLOOD COUNT 2.93 M/UL (4.70-6.10); RED CELL DISTRIBUTION WIDTH 16.2 % (11.6-14.8)
[2019-08-22] MEDS: Carvedilol 12.5mg tab ORAL SCH (09:00)
[2019-08-22] MEDS: HydrALAZINE 10mg Tab ORAL SCH (09:00)
[2019-08-22 09:04] LABS: ANION GAP 14 mmol/L (5-15); BLOOD UREA NITROGEN 81 mg/dL (7-18); CALCIUM 10.1 MG/DL (8.5-10.1); CARBON DIOXIDE 24 MMOL/L (21-32); CHLORIDE 101 MMOL/L (98-107); CREATININE 8.3 MG/DL (0.55-1.30); POTASSIUM 5.4 MMOL/L (3.5-5.1); SODIUM 139 MMOL/L (136-145)
[2019-08-22] MEDS: Docusate 100mg cap ORAL SCH ×3 (09:23→17:34)
[2019-08-22] MEDS: Nephrovite tab (Rena-Vite) ORAL SCH (09:23)
[2019-08-22] MEDS: Lotrisone Cream 15gm TOPIC SCH ×2 (09:23→17:33)
[2019-08-22] MEDS: Heparin 5000 units/ml inj SUBQ SCH ×2 (09:24→20:00)
--- NOTE | 2019-08-22 10:43 | Pulmonology Progress Note ---
Assessment/Plan Problems: (1) Pulmonary edema (2) Pleural effusion, right (3) Balanitis (4) ESRD needing dialysis (5) Anemia (6) HTN (hypertension) (7) Diabetes mellitus (8) Noncompliance with renal dialysis (9) Physical debility (10) Scrotal swelling Assessment/Plan getting HD dc Coreg as per cardio monitor BP respiratory treatment check electrolytes DNR is appropriate symptomatic treatment Subjective ROS Limited/Unobtainable: No Constitutional: Reports: no symptoms HEENT: Repors: no symptoms Respiratory: Reports: no symptoms Allergies: Coded Allergies: No Known Allergies (Unverified , 07/06/19) Objective Last 24 Hour Vital Signs Date Time Temp Pulse Resp B/P (MAP) Pulse Ox O2 Delivery O2 Flow Rate FiO2 08/22/19 09:22 97 Nasal Cannula 2.0 28 08/22/19 09:22 62 16 96 Nasal Cannula 2.0 28 08/22/19 09:00 150/80 08/22/19 09:00 150/80 08/22/19 09:00 60 150/80 08/22/19 08:00 97.7 60 20 150/80 (103) 93 08/22/19 04:00 97.4 55 19 148/75 (99) 98 08/22/19 04:00 55 08/22/19 03:18 98.5 08/22/19 00:17 76 20 99 Nasal Cannula 2.0 28 74 18 95 08/22/19 00:00 54 08/22/19 00:00 98.5 54 24 126/69 (88) 97 08/21/19 21:00 Nasal Cannula 1.0 08/21/19 20:57 138/79 08/21/19 20:57 89 138/79 08/21/19 20:27 98 Nasal Cannula 2.0 28 08/21/19 20:26 65 18 96 Nasal Cannula 2.0 28 08/21/19 20:00 97.8 89 19 138/79 (98) 97 08/21/19 17:44 156/69 08/21/19 17:43 156/69 08/21/19 16:00 97.8 62 20 152/76 (101) 94 08/21/19 14:08 97 Nasal Cannula 2.0 08/21/19 14:07 58 20 97 Nasal Cannula 2.0 08/21/19 12:52 156/69 08/21/19 12:00 96.8 63 20 135/86 (102) 91 Intake and Output 08/21/19 08/22/19 18:59 06:59 Intake Total 360 ml Balance 360 ml Intake Oral 360 ml # Voids 4 # Bowel Movements 1 1 General Appearance: WD/WN HEENT: normocephalic, atraumatic Respiratory/Chest: chest wall non-tender, lungs clear Cardiovascular: normal peripheral pulses, normal rate Abdomen: normal bowel sounds, soft, non tender Genitourinary: normal external genitalia Extremities: no cyanosis Neurologic/Psychiatric: ornamenter hand II-XII grossly normal Microbiology Date/Time Source Procedure Growth Status 08/20/19 11:57 Nasal Nares MRSA Culture - Final NO METHICILLIN RESISTANT STAPH AUREUS... Complete 08/20/19 15:00 Rectum - Final NO CARBAPENEM-RESISTANT ENTEROBACTERI... Complete 08/20/19 15:00 Rectum VRE Culture - Final NO VANCOMYCIN RESISTANT ENTEROCOCCUS ... Complete Laboratory Tests 08/22/19 08:00: White Blood Count 10.0, Red Blood Count 2.93L, Hemoglobin 8.7L, Hematocrit 27.6L , Mean Corpuscular Volume 94, Mean Corpuscular Hemoglobin 29.7, Mean Corpuscular Hemoglobin Concent 31.5L, Red Cell Distribution Width 16.2H, Platelet Count 120L, Mean Platelet Volume 4.9L, Neutrophils (%) (Auto) 79.0H, Lymphocytes (%) (Auto) 8.4L, Monocytes (%) (Auto) 8.3, Eosinophils (%) (Auto) 3.8H, Basophils (%) (Auto) 0.5, Sodium Level 139, Potassium Level 5.4H, Chloride Level 101, Carbon Dioxide Level 24, Anion Gap 14, Blood Urea Nitrogen 81H, Creatinine 8.3H, Estimat Glomerular Filtration Rate 6.6, Glucose Level 134H , Calcium Level 10.1, Troponin I 0.138H Current Medications Medications (Trade) Dose Ordered Sig/Trav Route PRN Reason Start Time Stop Time Status Last Admin Dose Admin Acetaminophen (Tylenol) 650 mg Q4H PRN ORAL Fever 08/20/19 16:45 09/19/19 16:44 08/21/19 10:15 Acetaminophen/ Hydrocodone Bitart ([place] 5/325) 1 tab Q4H PRN ORAL Moderate Pain (Pain Scale 4-6) 08/21/19 12:00 08/28/19 11:59 08/22/19 02:48 Albuterol/ Ipratropium (Albuterol/ Ipratropium) 3 ml Q4H PRN HHN Shortness of Breath 08/20/19 16:45 08/25/19 16:44 08/22/19 00:17 Betamethasone/ Clotrimazole (Lotrisone) 1 applic TWICE A DAY TOPIC 08/21/19 12:30 09/20/19 12:29 08/22/19 09:23 Carvedilol (Coreg) 12.5 mg EVERY 12 HOURS ORAL 08/20/19 21:00 09/19/19 20:59 08/21/19 20:57 Chlorhexidine Gluconate (Kaylee-Hex 2%) 1 applic DAILY@1999 TOPIC 08/22/19 20:00 09/21/19 19:59 Clonidine HCl (Catapres Tab) 0.1 mg Q4H PRN ORAL SBP>160 08/20/19 16:30 09/19/19 16:29 Dextrose (Dextrose 50%) 25 ml Q30M PRN IV Hypoglycemia 08/20/19 16:45 09/19/19 16:44 Dextrose (Dextrose 50%) 50 ml Q30M PRN IV Hypoglycemia 08/20/19 16:45 09/19/19 16:44 Docusate Sodium (Colace) 100 mg THREE TIMES A DAY ORAL 08/20/19 18:00 09/19/19 17:59 08/22/19 09:23 Escitalopram Oxalate (Lexapro) 10 mg DAILY ORAL 08/21/19 09:00 09/20/19 08:59 08/22/19 09:23 Heparin Sodium (Porcine) (Heparin 5000 units/ml) 5,000 units EVERY 12 HOURS SUBQ 08/20/19 21:00 09/19/19 20:59 08/22/19 09:24 Hydralazine HCl (Apresoline) 10 mg QID ORAL 08/20/19 18:00 09/19/19 17:59 08/21/19 20:57 Isosorbide Dinitrate (Isordil) 10 mg BID ORAL 08/21/19 18:00 09/20/19 17:59 08/21/19 17:44 Ondansetron HCl (Zofran) 4 mg Q6H PRN IVP Nausea & Vomiting 08/20/19 16:45 09/19/19 16:44 Polyethylene Glycol (Miralax) 17 gm DAILYPRN PRN ORAL Constipation 08/20/19 16:45 09/19/19 16:44 Temazepam (Restoril) 15 mg HSPRN PRN ORAL Insomnia 08/20/19 16:45 08/27/19 16:44 Vitamin B Complex/ Vit C/Folic Acid (Nephrovite) 1 tab DAILY ORAL 08/21/19 09:00 09/20/19 08:59 08/22/19 09:23 Christy Mercer MD Aug 22, 2019 10:43
[2019-08-22 12:00] VITALS: BP 160/77
[2019-08-22] MEDS ORDERED: HydrALAZINE 25mg tab ORAL SCH (12:00)
[2019-08-22] MEDS: HydrALAZINE 25mg tab ORAL SCH ×2 (12:34→21:44)
[2019-08-22 16:00] VITALS: BP 143/70
--- NOTE | 2019-08-22 17:30 | Nephrology Progress Note ---
Assessment/Plan Problem List: (1) ESRD needing dialysis (2) HTN (hypertension) (3) Anemia (4) Pulmonary edema (5) Diabetes mellitus (6) CHF (congestive heart failure) Plan Hd as tolerated Discussed with HD RN Advised compliance with outpt HD Subjective Subjective seen on HD Objective Objective Last 24 Hour Vital Signs Date Time Temp Pulse Resp B/P (MAP) Pulse Ox O2 Delivery O2 Flow Rate FiO2 08/22/19 16:00 97.5 59 18 143/70 (94) 96 08/22/19 16:00 57 08/22/19 12:34 160/77 08/22/19 12:20 Nasal Cannula 1.0 08/22/19 12:00 58 08/22/19 12:00 97.8 60 22 160/77 (104) 95 08/22/19 09:22 97 Nasal Cannula 2.0 28 08/22/19 09:22 62 16 96 Nasal Cannula 2.0 28 08/22/19 09:00 150/80 08/22/19 09:00 150/80 08/22/19 09:00 60 150/80 08/22/19 09:00 Nasal Cannula 1.0 08/22/19 08:00 54 08/22/19 08:00 97.7 60 20 150/80 (103) 93 08/22/19 04:00 97.4 55 19 148/75 (99) 98 08/22/19 04:00 55 08/22/19 03:18 98.5 08/22/19 00:17 76 20 99 Nasal Cannula 2.0 28 74 18 95 08/22/19 00:00 54 08/22/19 00:00 98.5 54 24 126/69 (88) 97 08/21/19 21:00 Nasal Cannula 1.0 08/21/19 20:57 138/79 08/21/19 20:57 89 138/79 08/21/19 20:27 98 Nasal Cannula 2.0 28 08/21/19 20:26 65 18 96 Nasal Cannula 2.0 28 08/21/19 20:00 97.8 89 19 138/79 (98) 97 08/21/19 17:44 156/69 08/21/19 17:43 156/69 Intake and Output 08/21/19 08/22/19 19:00 07:00 Intake Total 360 ml Balance 360 ml Intake Oral 360 ml # Voids 4 # Bowel Movements 1 1 Laboratory Tests 08/22/19 08:00: White Blood Count 10.0, Red Blood Count 2.93L, Hemoglobin 8.7L, Hematocrit 27.6L , Mean Corpuscular Volume 94, Mean Corpuscular Hemoglobin 29.7, Mean Corpuscular Hemoglobin Concent 31.5L, Red Cell Distribution Width 16.2H, Platelet Count 120L, Mean Platelet Volume 4.9L, Neutrophils (%) (Auto) 79.0H, Lymphocytes (%) (Auto) 8.4L, Monocytes (%) (Auto) 8.3, Eosinophils (%) (Auto) 3.8H, Basophils (%) (Auto) 0.5, Sodium Level 139, Potassium Level 5.4H, Chloride Level 101, Carbon Dioxide Level 24, Anion Gap 14, Blood Urea Nitrogen 81H, Creatinine 8.3H, Estimat Glomerular Filtration Rate 6.6, Glucose Level 134H , Calcium Level 10.1, Troponin I 0.138H Height (Feet): 5 Height (Inches): 8.00 Weight (Pounds): 208 Cardiovascular: normal rate Respiratory/Chest: lungs clear Extremities: trace edema Justin Hutson MD Aug 22, 2019 17:30
--- NOTE | 2019-08-22 18:28 | Internal Med Progress Note ---
Subjective Date of Service: Aug 22, 2019 Physician Name AndressaKuldip Attending Physician Geovany Roblero MD Current Medications Medications (Trade) Dose Ordered Sig/Trav Route PRN Reason Start Time Stop Time Status Last Admin Dose Admin Acetaminophen (Tylenol) 650 mg Q4H PRN ORAL Fever 08/20/19 16:45 09/19/19 16:44 08/21/19 10:15 Acetaminophen/ Hydrocodone Bitart ([place] 5/325) 1 tab Q4H PRN ORAL Moderate Pain (Pain Scale 4-6) 08/21/19 12:00 08/28/19 11:59 08/22/19 02:48 Albuterol/ Ipratropium (Albuterol/ Ipratropium) 3 ml Q4H PRN HHN Shortness of Breath 08/20/19 16:45 08/25/19 16:44 08/22/19 00:17 Betamethasone/ Clotrimazole (Lotrisone) 1 applic TWICE A DAY TOPIC 08/21/19 12:30 09/20/19 12:29 08/22/19 09:23 Chlorhexidine Gluconate (Kaylee-Hex 2%) 1 applic DAILY@1999 TOPIC 08/22/19 20:00 09/21/19 19:59 Clonidine HCl (Catapres Tab) 0.1 mg Q4H PRN ORAL SBP>160 08/20/19 16:30 09/19/19 16:29 Dextrose (Dextrose 50%) 25 ml Q30M PRN IV Hypoglycemia 08/20/19 16:45 09/19/19 16:44 Dextrose (Dextrose 50%) 50 ml Q30M PRN IV Hypoglycemia 08/20/19 16:45 09/19/19 16:44 Docusate Sodium (Colace) 100 mg THREE TIMES A DAY ORAL 08/20/19 18:00 09/19/19 17:59 08/22/19 09:23 Epoetin Garrett (Epoetin Garrett(ESRD on dialysis)) 2,000 unit TUE-TUE-TUE SUBQ 08/22/19 21:00 09/21/19 20:59 Epoetin Garrett (Epoetin Garrett(ESRD on dialysis)) 3,000 unit TUE-TUE-TUE SUBQ 08/22/19 21:00 09/21/19 20:59 Escitalopram Oxalate (Lexapro) 10 mg DAILY ORAL 08/21/19 09:00 09/20/19 08:59 08/22/19 09:23 Heparin Sodium (Porcine) (Heparin 5000 units/ml) 5,000 units EVERY 12 HOURS SUBQ 08/20/19 21:00 09/19/19 20:59 08/22/19 09:24 Hydralazine HCl (Apresoline) 25 mg EVERY 8 HOURS ORAL 08/22/19 14:00 09/21/19 13:59 Isosorbide Dinitrate (Isordil) 10 mg BID ORAL 08/21/19 18:00 09/20/19 17:59 08/21/19 17:44 Ondansetron HCl (Zofran) 4 mg Q6H PRN IVP Nausea & Vomiting 08/20/19 16:45 09/19/19 16:44 08/22/19 12:29 Polyethylene Glycol (Miralax) 17 gm DAILYPRN PRN ORAL Constipation 08/20/19 16:45 09/19/19 16:44 Sevelamer Carbonate (Renvela) 800 mg THREE TIMES A DAY ORAL 08/22/19 18:00 09/21/19 17:59 08/22/19 17:57 Temazepam (Restoril) 15 mg HSPRN PRN ORAL Insomnia 08/20/19 16:45 08/27/19 16:44 Vitamin B Complex/ Vit C/Folic Acid (Nephrovite) 1 tab DAILY ORAL 08/21/19 09:00 09/20/19 08:59 08/22/19 09:23 Allergies: Coded Allergies: No Known Allergies (Unverified , 07/06/19) ROS Limited/Unobtainable: No Constitutional: Reports: no symptoms HEENT: Reports: no symptoms Cardiovascular: Reports: no symptoms Respiratory: Reports: no symptoms Gastrointestinal/Abdominal: Reports: no symptoms Genitourinary: Reports: no symptoms Subjective 63 YO M admitted with swelling in groin. Cover for Jaquan Roblero Objective Last Vital Signs Date Time Temp Pulse Resp B/P (MAP) Pulse Ox O2 Delivery O2 Flow Rate FiO2 08/22/19 17:34 126/52 08/22/19 16:00 97.5 59 18 96 08/22/19 12:20 Nasal Cannula 1.0 08/22/19 09:22 28 Laboratory Tests Test 08/22/19 08:00 White Blood Count 10.0 K/UL (4.8-10.8) Red Blood Count 2.93 M/UL (4.70-6.10) L Hemoglobin 8.7 G/DL (14.2-18.0) L Hematocrit 27.6 % (42.0-52.0) L Mean Corpuscular Volume 94 FL (80-99) Mean Corpuscular Hemoglobin 29.7 PG (27.0-31.0) Mean Corpuscular Hemoglobin Concent 31.5 G/DL (32.0-36.0) L Red Cell Distribution Width 16.2 % (11.6-14.8) H Platelet Count 120 K/UL (150-450) L Mean Platelet Volume 4.9 FL (6.5-10.1) L Neutrophils (%) (Auto) 79.0 % (45.0-75.0) H Lymphocytes (%) (Auto) 8.4 % (20.0-45.0) L Monocytes (%) (Auto) 8.3 % (1.0-10.0) Eosinophils (%) (Auto) 3.8 % (0.0-3.0) H Basophils (%) (Auto) 0.5 % (0.0-2.0) Sodium Level 139 MMOL/L (136-145) Potassium Level 5.4 MMOL/L (3.5-5.1) H Chloride Level 101 MMOL/L (98-107) Carbon Dioxide Level 24 MMOL/L (21-32) Anion Gap 14 mmol/L (5-15) Blood Urea Nitrogen 81 mg/dL (7-18) H Creatinine 8.3 MG/DL (0.55-1.30) H Estimat Glomerular Filtration Rate 6.6 mL/min (>60) Glucose Level 134 MG/DL (74-106) H Calcium Level 10.1 MG/DL (8.5-10.1) Troponin I 0.138 ng/mL (0.000-0.056) Microbiology Date/Time Source Procedure Growth Status 08/20/19 11:57 Nasal Nares MRSA Culture - Final NO METHICILLIN RESISTANT STAPH AUREUS... Complete 08/20/19 15:00 Rectum - Final NO CARBAPENEM-RESISTANT ENTEROBACTERI... Complete 08/20/19 15:00 Rectum VRE Culture - Final NO VANCOMYCIN RESISTANT ENTEROCOCCUS ... Complete Intake and Output 08/21/19 08/22/19 19:00 07:00 Intake Total 360 ml Balance 360 ml Intake Oral 360 ml # Voids 4 # Bowel Movements 1 1 Objective PHYSICAL EXAMINATION: GENERAL: The patient is a well-developed and well-nourished male, in no apparent distress. HEENT: Eyes, pupils are equal and responsive to light and accommodation. Extraocular movements are intact. NECK: Supple without lymphadenopathy. CHEST: Lungs are clear to auscultation bilaterally without wheezes or rales. CARDIOVASCULAR: Regular rhythm and rate. S1 and S2 are normal without murmurs, rubs, or gallops. ABDOMEN: Soft, nontender, and nondistended. Positive bowel sounds. No evidence of hepatosplenomegaly. Currently, no rebound or guarding noted. EXTREMITIES: Negative for clubbing, cyanosis, or edema. RECTAL/GENITAL: Not performed. NEUROLOGIC: Cranial nerves II through XII are grossly intact without focal deficits. Motor strength is 5/5 bilaterally. Deep tendon reflexes 2+ plantar. Assessment/Plan Assessment/Plan ASSESSMENT: This is a 63-year-old male. 1. Localized edema of the groin. 2. End-stage renal disease. 3. Congestive heart failure. 4. Hypertension. 5. Diabetes type 2. 6. Anemia secondary to renal failure. 7. Mobitz 1 second-degree AV block. 8. First-degree AV block. TREATMENT: 1. Swelling of the groin. Volume overload. This may be secondary to missed dialysis as above. A Nephrology consultation has been obtained with Dr. Justin Santiago. 2. End-stage renal disease. The patient missed his dialysis on Tuesday, August 20, 2019. A Nephrology consultation has been obtained with Dr. Justin Hutson. We will follow recommendations of Nephrollogy. Hemodialysis 08/22/19. 3. Congestive heart failure. The patient's ejection fraction is 25%. A Cardiology consultation is pending with Dr. Nikko Resendiz. 5. Hypertension. Continue Coreg and hydralazine as above. 6. Diabetes type 2. A NovoLog sliding scale has been instituted. 7. Anemia secondary to renal failure. Kuldip Crisostomo MD Aug 22, 2019 18:27
--- NOTE | 2019-08-22 18:40 | NUR ---
NURSE NOTES: Dr. Resendiz at bedside assessing pt now and will adjust medications per pt's current HR and cardiac rhythm. He is aware of troponin levels since this morning and states this is related to renal failure.
--- NOTE | 2019-08-22 18:46 | Cardiology Progress Note ---
Assessment/Plan Assessment/Plan 1. Congestive heart failure. 2. Cardiomyopathy. 3. Systemic hypertension. 4. Diabetes mellitus type 2. 5. End-stage renal disease, on hemodialysis. 6. Dialysis noncompliance. 7. Mitral and tricuspid regurgitation. not a candidate for adriana i in the setting of poor dialysis complaince dialysis a pt allows repeat torp note no peak no sravani to suggest acs may need to decrease or stop bb if any sig fátima will use coreg 3.125 mg bid d/w brazer controlled atmospheric furnace reviewed Subjective Cardiovascular: Denies: chest pain, lightheadedness Respiratory: Denies: shortness of breath Gastrointestinal/Abdominal: Denies: abdomen distended Objective Last 24 Hour Vital Signs Date Time Temp Pulse Resp B/P (MAP) Pulse Ox O2 Delivery O2 Flow Rate FiO2 08/22/19 17:34 126/52 08/22/19 16:00 97.5 59 18 143/70 (94) 96 08/22/19 16:00 57 08/22/19 12:34 160/77 08/22/19 12:20 Nasal Cannula 1.0 08/22/19 12:00 58 08/22/19 12:00 97.8 60 22 160/77 (104) 95 08/22/19 09:22 97 Nasal Cannula 2.0 28 08/22/19 09:22 62 16 96 Nasal Cannula 2.0 28 08/22/19 09:00 150/80 08/22/19 09:00 150/80 08/22/19 09:00 60 150/80 08/22/19 09:00 Nasal Cannula 1.0 08/22/19 08:00 54 08/22/19 08:00 97.7 60 20 150/80 (103) 93 08/22/19 04:00 97.4 55 19 148/75 (99) 98 08/22/19 04:00 55 08/22/19 03:18 98.5 08/22/19 00:17 76 20 99 Nasal Cannula 2.0 28 74 18 95 08/22/19 00:00 54 08/22/19 00:00 98.5 54 24 126/69 (88) 97 08/21/19 21:00 Nasal Cannula 1.0 08/21/19 20:57 138/79 08/21/19 20:57 89 138/79 08/21/19 20:27 98 Nasal Cannula 2.0 28 08/21/19 20:26 65 18 96 Nasal Cannula 2.0 28 08/21/19 20:00 97.8 89 19 138/79 (98) 97 General Appearance: no apparent distress, alert Neck: supple Cardiovascular: normal rate Respiratory/Chest: decreased breath sounds Abdomen: normal bowel sounds, non tender, soft Extremities: moderate edema Intake and Output 08/21/19 08/22/19 19:00 07:00 Intake Total 360 ml Balance 360 ml Intake Oral 360 ml # Voids 4 # Bowel Movements 1 1 Laboratory Tests Test 08/22/19 08:00 White Blood Count 10.0 K/UL (4.8-10.8) Red Blood Count 2.93 M/UL (4.70-6.10) L Hemoglobin 8.7 G/DL (14.2-18.0) L Hematocrit 27.6 % (42.0-52.0) L Mean Corpuscular Volume 94 FL (80-99) Mean Corpuscular Hemoglobin 29.7 PG (27.0-31.0) Mean Corpuscular Hemoglobin Concent 31.5 G/DL (32.0-36.0) L Red Cell Distribution Width 16.2 % (11.6-14.8) H Platelet Count 120 K/UL (150-450) L Mean Platelet Volume 4.9 FL (6.5-10.1) L Neutrophils (%) (Auto) 79.0 % (45.0-75.0) H Lymphocytes (%) (Auto) 8.4 % (20.0-45.0) L Monocytes (%) (Auto) 8.3 % (1.0-10.0) Eosinophils (%) (Auto) 3.8 % (0.0-3.0) H Basophils (%) (Auto) 0.5 % (0.0-2.0) Sodium Level 139 MMOL/L (136-145) Potassium Level 5.4 MMOL/L (3.5-5.1) H Chloride Level 101 MMOL/L (98-107) Carbon Dioxide Level 24 MMOL/L (21-32) Anion Gap 14 mmol/L (5-15) Blood Urea Nitrogen 81 mg/dL (7-18) H Creatinine 8.3 MG/DL (0.55-1.30) H Estimat Glomerular Filtration Rate 6.6 mL/min (>60) Glucose Level 134 MG/DL (74-106) H Calcium Level 10.1 MG/DL (8.5-10.1) Troponin I 0.138 ng/mL (0.000-0.056) Microbiology Date/Time Source Procedure Growth Status 08/20/19 11:57 Nasal Nares MRSA Culture - Final NO METHICILLIN RESISTANT STAPH AUREUS... Complete 08/20/19 15:00 Rectum - Final NO CARBAPENEM-RESISTANT ENTEROBACTERI... Complete 08/20/19 15:00 Rectum VRE Culture - Final NO VANCOMYCIN RESISTANT ENTEROCOCCUS ... Complete Nikko Resendiz MD Aug 22, 2019 18:45
--- NOTE | 2019-08-22 19:42 | NUR ---
HAND-OFF: Report given to ANTONY Nguyen. Pt in stable condition.
--- NOTE | 2019-08-22 19:45 | NUR ---
NURSE NOTES: Received patient from ANTONY Mcneil. Patient alert, talkative, and resting in bed. No signs of shortness of breath, distress, or pain noted. Patient able to make needs known. IV site checked, intact and patent, no signs of infiltration, bleeding, or erythema noted. Bed in lowest position, brakes on, side rails up x3, and call light within reach. Will continue with plan of care.
[2019-08-22 20:00] VITALS: BP 120/68
[2019-08-22] MEDS: Dyna-Hex 2% Top Sol 2oz TOPIC SCH (20:10)
[2019-08-22] MEDS ORDERED: ONDANSETRON ODT4 MG BC (20:24)
[2019-08-22] MEDS ORDERED: NEOSPORIN OINT30 GM TOPIC (20:31)
[2019-08-22] MEDS ORDERED: KENALOG1 APPLIC TOPIC (20:31)
[2019-08-22] MEDS ORDERED: VENOFER50 MG/2.5 IV (20:31)
[2019-08-22] MEDS ORDERED: NOVOLOG100 UNITS1 SUBQ (20:31)
[2019-08-22] MEDS ORDERED: Epoetin Alfa-EPBX(ESRD on dialysis)2000 units/ml vial SUBQ SCH (21:00)
[2019-08-22] MEDS ORDERED: Epoetin Alfa-EPBX(ESRD on dialysis)3000 units/ml vial SUBQ SCH (21:00)
--- NOTE | 2019-08-22 22:30 | Consultation ---
DATE OF CONSULTATION: 08/21/2019 NEPHROLOGY CONSULTATION CONSULTING PHYSICIAN: Justin Hutson M.D. REASON FOR CONSULTATION: End-stage renal disease, requiring hemodialysis. HISTORY OF PRESENT ILLNESS: This is a 63-year-old male with history of end-stage renal disease, on hemodialysis. The patient is followed by me at [facility]. The patient is noncompliant with his dialysis and he ends up coming to ER with fluid overload. He was admitted with a 2-day history of scrotal swelling and also generalized fluid overload because he was missing dialysis. PAST MEDICAL HISTORY: Includes history of CHF, diabetes mellitus, diabetic gastroparesis, diabetic neuropathy, gastroesophageal reflux disease, hypertension, Mobitz 1 second-degree AV block. His ejection fraction is only 25%. MEDICATIONS: Reviewed in the EMR. SOCIAL HISTORY: The patient is . He lives in [facility]. No history of smoking or alcohol abuse. ALLERGIES: No known drug allergies. REVIEW OF SYSTEMS: As above. PHYSICAL EXAMINATION: GENERAL: The patient is a 63-year-old male, in no acute distress. VITAL SIGNS: Blood pressure is 126/52, pulse is 59, temperature 97.5, respiratory rate is 18. HEENT: Pale conjunctivae. Anicteric sclerae. NECK: Supple. LUNGS: Clear to auscultation. HEART: S1, S2 without murmurs or rubs. ABDOMEN: Soft, nontender. EXTREMITIES: Bilateral pedal edema. LABORATORY FINDINGS: The CBC shows WBC of 10,000, hematocrit is 27.6, hemoglobin is 8.7, platelets 120,000. Chemistry panel shows a serum sodium 139, potassium 5.3, chloride 101, CO2 25, BUN 72, creatinine 7.8, calcium is 10.5, phosphorus 7.8. ASSESSMENT: This is a 63-year-old male with history of end-stage renal disease, on hemodialysis who is noncompliant with his outpatient dialysis. He is admitted with fluid overload. He is anemic from his chronic kidney disease. Iron deficiency needs to be ruled out. He has elevated phosphorus. PLAN: The patient will be dialyzed. He needs to be on phosphate binders, Epogen daily, Nephro-Eduar. His PTH can be ordered as an outpatient. Thank you very much for this consultation. Justin Hutson M.D. DR: ZAINAB JOB#: [id number] CC: SOWMYA
[2019-08-23] VITALS: BP 156/86
[2019-08-23 04:00] VITALS: BP_SYST 159; BP_SYST 160; BP_DIAS 72
[2019-08-23] MEDS: HydrALAZINE 25mg tab ORAL SCH ×3 (05:31→22:11)
[2019-08-23] MEDS: HYDROcodone/Acetamin 5/325 tab ORAL PRN ×2 (05:32→17:40)
[2019-08-23 07:17] LABS: BASOPHILS % (AUTO) 0.6 % (0.0-2.0); EOSINOPHILS % (AUTO) 4.4 % (0.0-3.0); HEMATOCRIT 28.3 % (42.0-52.0); HEMOGLOBIN 8.9 G/DL (14.2-18.0); LYMPHOCYTES % (AUTO) 8.3 % (20.0-45.0); MEAN CORPUSCULAR VOLUME 96 FL (80-99); MONOCYTES % (AUTO) 8.6 % (1.0-10.0); NEUTROPHILS % (AUTO) 78.1 % (45.0-75.0); PLATELET COUNT 130 K/UL (150-450); RED BLOOD COUNT 2.96 M/UL (4.70-6.10); RED CELL DISTRIBUTION WIDTH 16.2 % (11.6-14.8); WHITE BLOOD COUNT 9.7 K/UL (4.8-10.8)
--- NOTE | 2019-08-23 07:20 | NUR ---
HAND-OFF: Report given to ANTONY Hillman. Plan of care endorsed.
[2019-08-23 07:24] LABS: ANION GAP 12 mmol/L (5-15); BLOOD UREA NITROGEN 71 mg/dL (7-18); CALCIUM 10.4 MG/DL (8.5-10.1); CARBON DIOXIDE 27 MMOL/L (21-32); CHLORIDE 102 MMOL/L (98-107); CREATININE 7.7 MG/DL (0.55-1.30); POTASSIUM 5.2 MMOL/L (3.5-5.1); SODIUM 141 MMOL/L (136-145)
--- NOTE | 2019-08-23 07:41 | NUR ---
NURSE NOTES: Pt in room sitting at the edge of the bed pt is able to ambulate with assist, call light within reach, pt Ox4 makes needs known, last HD was on the with 3L out, pt denies any pain, no s/s of distress or sob noted
[2019-08-23 08:05] VITALS: BP 162/73
--- NOTE | 2019-08-23 08:47 | NUR ---
RD ASSESSMENT & RECOMMENDATIONS SEE CARE ACTIVITY FOR COMPLETE ASSESSMENT DAILY ESTIMATED NEEDS: Needs based on ESRD on HD, 76kg adj 25-30 kcals/kg [id number] total kcals 1.2-1.8 g protein/kg 91-137 g total protein Fluid per MD, on HD NUTRITION DIAGNOSIS: Increased protein needs R/T ESRD as evidenced by pt on HD. (CURRENT DIET: Renal) PO DIET RECOMMENDATIONS-->> RENAL + DOUBLE PROTEIN PORTIONS ADDITIONAL RECOMMENDATIONS: 1) Obtain a dry standing weight POST HD 2) Monitor BG/ need for SSI and/or dietary restriction ([facility] diet) 3) Continue Nephrovite x 1 4) Double prot portions to better meet increased protein needs . .
[2019-08-23] MEDS: Heparin 5000 units/ml inj SUBQ SCH ×2 (09:00→20:47)
[2019-08-23] MEDS: Docusate 100mg cap ORAL SCH ×3 (09:01→17:38)
[2019-08-23] MEDS: Nephrovite tab (Rena-Vite) ORAL SCH (09:01)
[2019-08-23] MEDS: Lotrisone Cream 15gm TOPIC SCH ×2 (09:02→17:38)
--- NOTE | 2019-08-23 10:45 | Pulmonology Progress Note ---
Assessment/Plan Problems: (1) Pulmonary edema (2) Pleural effusion, right (3) Balanitis (4) ESRD needing dialysis (5) Anemia (6) HTN (hypertension) (7) Diabetes mellitus (8) Noncompliance with renal dialysis (9) Physical debility (10) Scrotal swelling Assessment/Plan looks frail no new complains monitor BP tele records reviewed, sinus fátima with lowest rate at 46 in the last 24 hours. respiratory treatment check electrolytes DNR is appropriate symptomatic treatment Subjective ROS Limited/Unobtainable: No Constitutional: Reports: no symptoms HEENT: Repors: no symptoms Respiratory: Reports: no symptoms Allergies: Coded Allergies: No Known Allergies (Unverified , 07/06/19) Objective Last 24 Hour Vital Signs Date Time Temp Pulse Resp B/P (MAP) Pulse Ox O2 Delivery O2 Flow Rate FiO2 08/23/19 09:02 162/73 08/23/19 09:01 66 162/73 08/23/19 09:01 162/73 08/23/19 08:10 Nasal Cannula 1.0 08/23/19 08:05 97.7 66 20 162/73 (102) 93 08/23/19 07:40 66 08/23/19 05:31 163/78 08/23/19 04:00 97.7 64 24 159/72 (101) 94 08/23/19 04:00 65 08/23/19 00:00 97.6 65 24 156/86 (109) 97 08/23/19 00:00 61 08/22/19 21:44 144/73 08/22/19 21:00 Nasal Cannula 1.0 08/22/19 20:12 67 18 98 Nasal Cannula 2.0 28 08/22/19 20:12 98 Nasal Cannula 2.0 28 08/22/19 20:10 59 120/68 08/22/19 20:00 97.8 59 24 120/68 (85) 98 08/22/19 20:00 59 08/22/19 17:34 126/52 08/22/19 16:00 97.5 59 18 143/70 (94) 96 08/22/19 16:00 57 08/22/19 12:34 160/77 08/22/19 12:20 Nasal Cannula 1.0 08/22/19 12:00 58 08/22/19 12:00 97.8 60 22 160/77 (104) 95 Intake and Output 08/22/19 08/23/19 19:00 07:00 Intake Total 560 ml 240 ml Output Total 3000 ml Balance -2440 ml 240 ml Intake Oral 560 ml 240 ml Hemodialysis UF 3000 ml # Voids 1 General Appearance: cachetic HEENT: normocephalic Respiratory/Chest: chest wall non-tender Cardiovascular: normal peripheral pulses, normal rate Abdomen: normal bowel sounds, soft, non tender Genitourinary: normal external genitalia Extremities: no cyanosis Neurologic/Psychiatric: director alumni relations II-XII grossly normal Lymphatic: no neck adenopathy Microbiology Date/Time Source Procedure Growth Status 08/20/19 11:57 Nasal Nares MRSA Culture - Final NO METHICILLIN RESISTANT STAPH AUREUS... Complete 08/20/19 15:00 Rectum - Final NO CARBAPENEM-RESISTANT ENTEROBACTERI... Complete 08/20/19 15:00 Rectum VRE Culture - Final NO VANCOMYCIN RESISTANT ENTEROCOCCUS ... Complete Laboratory Tests 08/23/19 05:27: White Blood Count 9.7, Red Blood Count 2.96L, Hemoglobin 8.9L, Hematocrit 28.3L , Mean Corpuscular Volume 96, Mean Corpuscular Hemoglobin 29.9, Mean Corpuscular Hemoglobin Concent 31.3L, Red Cell Distribution Width 16.2H, Platelet Count 130L, Mean Platelet Volume 4.9L, Neutrophils (%) (Auto) 78.1H, Lymphocytes (%) (Auto) 8.3L, Monocytes (%) (Auto) 8.6, Eosinophils (%) (Auto) 4.4H, Basophils (%) (Auto) 0.6, Sodium Level 141, Potassium Level 5.2H, Chloride Level 102, Carbon Dioxide Level 27, Anion Gap 12, Blood Urea Nitrogen 71H, Creatinine 7.7H, Estimat Glomerular Filtration Rate 7.2, Glucose Level 85, Calcium Level 10.4H Current Medications Medications (Trade) Dose Ordered Sig/Trav Route PRN Reason Start Time Stop Time Status Last Admin Dose Admin Acetaminophen (Tylenol) 650 mg Q4H PRN ORAL Fever 08/20/19 16:45 09/19/19 16:44 08/21/19 10:15 Acetaminophen/ Hydrocodone Bitart ([place] 5/325) 1 tab Q4H PRN ORAL Moderate Pain (Pain Scale 4-6) 08/21/19 12:00 08/28/19 11:59 08/23/19 05:32 Albuterol/ Ipratropium (Albuterol/ Ipratropium) 3 ml Q4H PRN HHN Shortness of Breath 08/20/19 16:45 08/25/19 16:44 08/22/19 00:17 Betamethasone/ Clotrimazole (Lotrisone) 1 applic TWICE A DAY TOPIC 08/21/19 12:30 09/20/19 12:29 08/23/19 09:02 Carvedilol (Coreg) 3.125 mg EVERY 12 HOURS ORAL 08/22/19 21:00 09/21/19 20:59 08/23/19 09:01 Chlorhexidine Gluconate (Kaylee-Hex 2%) 1 applic DAILY@1999 TOPIC 08/22/19 20:00 09/21/19 19:59 08/22/19 20:10 Clonidine HCl (Catapres Tab) 0.1 mg Q4H PRN ORAL SBP>160 08/20/19 16:30 09/19/19 16:29 08/23/19 09:02 Dextrose (Dextrose 50%) 25 ml Q30M PRN IV Hypoglycemia 08/20/19 16:45 09/19/19 16:44 Dextrose (Dextrose 50%) 50 ml Q30M PRN IV Hypoglycemia 08/20/19 16:45 09/19/19 16:44 Docusate Sodium (Colace) 100 mg THREE TIMES A DAY ORAL 08/20/19 18:00 09/19/19 17:59 08/23/19 09:01 Epoetin Garrett (Epoetin Garrett(ESRD on dialysis)) 2,000 unit TUE-TUE-TUE SUBQ 08/22/19 21:00 09/21/19 20:59 08/22/19 20:10 Epoetin Garrett (Epoetin Garrett(ESRD on dialysis)) 3,000 unit TUE-TUE-TUE SUBQ 08/22/19 21:00 09/21/19 20:59 08/22/19 20:11 Escitalopram Oxalate (Lexapro) 10 mg DAILY ORAL 08/21/19 09:00 09/20/19 08:59 08/23/19 09:01 Heparin Sodium (Porcine) (Heparin 5000 units/ml) 5,000 units EVERY 12 HOURS SUBQ 08/20/19 21:00 09/19/19 20:59 08/22/19 09:24 Hydralazine HCl (Apresoline) 25 mg EVERY 8 HOURS ORAL 08/22/19 14:00 09/21/19 13:59 08/23/19 05:31 Isosorbide Dinitrate (Isordil) 10 mg BID ORAL 08/21/19 18:00 09/20/19 17:59 08/23/19 09:01 Ondansetron HCl (Zofran) 4 mg Q6H PRN IVP Nausea & Vomiting 08/20/19 16:45 09/19/19 16:44 08/22/19 20:32 Polyethylene Glycol (Miralax) 17 gm DAILYPRN PRN ORAL Constipation 08/20/19 16:45 09/19/19 16:44 Sevelamer Carbonate (Renvela) 800 mg THREE TIMES A DAY ORAL 08/22/19 18:00 09/21/19 17:59 08/23/19 09:01 Temazepam (Restoril) 15 mg HSPRN PRN ORAL Insomnia 08/20/19 16:45 08/27/19 16:44 Vitamin B Complex/ Vit C/Folic Acid (Nephrovite) 1 tab DAILY ORAL 08/21/19 09:00 09/20/19 08:59 08/23/19 09:01 Christy Mercer MD Aug 23, 2019 10:45
[2019-08-23 11:53] VITALS: BP 147/67
--- NOTE | 2019-08-23 13:02 | NUR ---
*-* DISCHARGE PLANNING *-* PATIENT HAS BEEN REFERRED BACK TO: [facility] P: [phone] F: [phone]
--- NOTE | 2019-08-23 13:52 | Nephrology Progress Note ---
Assessment/Plan Problem List: (1) ESRD needing dialysis (2) HTN (hypertension) (3) Anemia (4) Pulmonary edema (5) Diabetes mellitus (6) CHF (congestive heart failure) Plan Hd tomorrow follow labs Subjective Subjective feels ok Objective Objective Last 24 Hour Vital Signs Date Time Temp Pulse Resp B/P (MAP) Pulse Ox O2 Delivery O2 Flow Rate FiO2 08/23/19 13:06 147/67 08/23/19 11:53 98.1 60 18 147/67 (93) 93 08/23/19 11:33 58 08/23/19 11:13 95 Nasal Cannula 2.0 28 08/23/19 11:13 64 18 95 Nasal Cannula 2.0 28 08/23/19 09:02 162/73 08/23/19 09:01 66 162/73 08/23/19 09:01 162/73 08/23/19 08:10 Nasal Cannula 1.0 08/23/19 08:05 97.7 66 20 162/73 (102) 93 08/23/19 07:40 66 08/23/19 05:31 163/78 08/23/19 04:00 97.7 64 24 159/72 (101) 94 08/23/19 04:00 65 08/23/19 00:00 97.6 65 24 156/86 (109) 97 08/23/19 00:00 61 08/22/19 21:44 144/73 08/22/19 21:00 Nasal Cannula 1.0 08/22/19 20:12 67 18 98 Nasal Cannula 2.0 28 08/22/19 20:12 98 Nasal Cannula 2.0 28 08/22/19 20:10 59 120/68 08/22/19 20:00 97.8 59 24 120/68 (85) 98 08/22/19 20:00 59 08/22/19 17:34 126/52 08/22/19 16:00 97.5 59 18 143/70 (94) 96 08/22/19 16:00 57 Intake and Output 08/22/19 08/23/19 18:59 06:59 Intake Total 560 ml 120 ml Output Total 3000 ml Balance -2440 ml 120 ml Intake Oral 560 ml 120 ml Hemodialysis UF 3000 ml # Voids 1 Laboratory Tests 08/23/19 05:27: White Blood Count 9.7, Red Blood Count 2.96L, Hemoglobin 8.9L, Hematocrit 28.3L , Mean Corpuscular Volume 96, Mean Corpuscular Hemoglobin 29.9, Mean Corpuscular Hemoglobin Concent 31.3L, Red Cell Distribution Width 16.2H, Platelet Count 130L, Mean Platelet Volume 4.9L, Neutrophils (%) (Auto) 78.1H, Lymphocytes (%) (Auto) 8.3L, Monocytes (%) (Auto) 8.6, Eosinophils (%) (Auto) 4.4H, Basophils (%) (Auto) 0.6, Sodium Level 141, Potassium Level 5.2H, Chloride Level 102, Carbon Dioxide Level 27, Anion Gap 12, Blood Urea Nitrogen 71H, Creatinine 7.7H, Estimat Glomerular Filtration Rate 7.2, Glucose Level 85, Calcium Level 10.4H Height (Feet): 5 Height (Inches): 8.00 Weight (Pounds): 209 Cardiovascular: normal rate Respiratory/Chest: lungs clear Extremities: trace edema Justin Hutson MD Aug 23, 2019 13:52
[2019-08-23 16:00] VITALS: BP 152/81
--- NOTE | 2019-08-23 16:04 | Internal Med Progress Note ---
Subjective Date of Service: Aug 23, 2019 Physician Name AndressaKuldip Attending Physician Geovany Roblero MD Current Medications Medications (Trade) Dose Ordered Sig/Trav Route PRN Reason Start Time Stop Time Status Last Admin Dose Admin Acetaminophen (Tylenol) 650 mg Q4H PRN ORAL Fever 08/20/19 16:45 09/19/19 16:44 08/21/19 10:15 Acetaminophen/ Hydrocodone Bitart ([place] 5/325) 1 tab Q4H PRN ORAL Moderate Pain (Pain Scale 4-6) 08/21/19 12:00 08/28/19 11:59 08/23/19 05:32 Albuterol/ Ipratropium (Albuterol/ Ipratropium) 3 ml Q4H PRN HHN Shortness of Breath 08/20/19 16:45 08/25/19 16:44 08/22/19 00:17 Betamethasone/ Clotrimazole (Lotrisone) 1 applic TWICE A DAY TOPIC 08/21/19 12:30 09/20/19 12:29 08/23/19 09:02 Carvedilol (Coreg) 3.125 mg EVERY 12 HOURS ORAL 08/22/19 21:00 09/21/19 20:59 08/23/19 09:01 Chlorhexidine Gluconate (Kaylee-Hex 2%) 1 applic DAILY@1999 TOPIC 08/22/19 20:00 09/21/19 19:59 08/22/19 20:10 Clonidine HCl (Catapres Tab) 0.1 mg Q4H PRN ORAL SBP>160 08/20/19 16:30 09/19/19 16:29 08/23/19 09:02 Dextrose (Dextrose 50%) 25 ml Q30M PRN IV Hypoglycemia 08/20/19 16:45 09/19/19 16:44 Dextrose (Dextrose 50%) 50 ml Q30M PRN IV Hypoglycemia 08/20/19 16:45 09/19/19 16:44 Docusate Sodium (Colace) 100 mg THREE TIMES A DAY ORAL 08/20/19 18:00 09/19/19 17:59 08/23/19 13:04 Epoetin Garrett (Epoetin Garrett(ESRD on dialysis)) 2,000 unit TUE-TUE-TUE SUBQ 08/22/19 21:00 09/21/19 20:59 08/22/19 20:10 Epoetin Garrett (Epoetin Garrett(ESRD on dialysis)) 3,000 unit TUE-TUE-TUE SUBQ 08/22/19 21:00 09/21/19 20:59 08/22/19 20:11 Escitalopram Oxalate (Lexapro) 10 mg DAILY ORAL 08/21/19 09:00 09/20/19 08:59 08/23/19 09:01 Heparin Sodium (Porcine) (Heparin 5000 units/ml) 5,000 units EVERY 12 HOURS SUBQ 08/20/19 21:00 09/19/19 20:59 08/22/19 09:24 Heparin Sodium (Porcine) (Heparin Sod 1000 units/ml 10ml) 500 unit ONCE PRN IV hd 08/24/19 06:00 08/24/19 23:59 Hydralazine HCl (Apresoline) 25 mg EVERY 8 HOURS ORAL 08/22/19 14:00 09/21/19 13:59 08/23/19 13:06 Isosorbide Dinitrate (Isordil) 10 mg BID ORAL 08/21/19 18:00 09/20/19 17:59 08/23/19 09:01 Ondansetron HCl (Zofran) 4 mg Q6H PRN IVP Nausea & Vomiting 08/20/19 16:45 09/19/19 16:44 08/22/19 20:32 Polyethylene Glycol (Miralax) 17 gm DAILYPRN PRN ORAL Constipation 08/20/19 16:45 09/19/19 16:44 08/23/19 13:04 Sevelamer Carbonate (Renvela) 800 mg THREE TIMES A DAY ORAL 08/22/19 18:00 09/21/19 17:59 08/23/19 13:04 Sodium Chloride 1,000 ml @ 500 mls/hr Q2H PRN IVLG sbp<90 during hd 08/24/19 06:00 08/24/19 23:59 Temazepam (Restoril) 15 mg HSPRN PRN ORAL Insomnia 08/20/19 16:45 08/27/19 16:44 Vitamin B Complex/ Vit C/Folic Acid (Nephrovite) 1 tab DAILY ORAL 08/21/19 09:00 09/20/19 08:59 08/23/19 09:01 Allergies: Coded Allergies: No Known Allergies (Unverified , 07/06/19) ROS Limited/Unobtainable: No Constitutional: Reports: no symptoms HEENT: Reports: no symptoms Cardiovascular: Reports: no symptoms Respiratory: Reports: no symptoms Gastrointestinal/Abdominal: Reports: no symptoms Genitourinary: Reports: no symptoms Neurologic/Psychiatric: Reports: no symptoms Subjective 63 YO M admitted with swelling in groin. Cover for Int Zhang-Dr Roblero Objective Last Vital Signs Date Time Temp Pulse Resp B/P (MAP) Pulse Ox O2 Delivery O2 Flow Rate FiO2 08/23/19 13:06 147/67 08/23/19 11:53 98.1 60 18 93 08/23/19 11:13 Nasal Cannula 2.0 28 Laboratory Tests Test 08/23/19 05:27 White Blood Count 9.7 K/UL (4.8-10.8) Red Blood Count 2.96 M/UL (4.70-6.10) L Hemoglobin 8.9 G/DL (14.2-18.0) L Hematocrit 28.3 % (42.0-52.0) L Mean Corpuscular Volume 96 FL (80-99) Mean Corpuscular Hemoglobin 29.9 PG (27.0-31.0) Mean Corpuscular Hemoglobin Concent 31.3 G/DL (32.0-36.0) L Red Cell Distribution Width 16.2 % (11.6-14.8) H Platelet Count 130 K/UL (150-450) L Mean Platelet Volume 4.9 FL (6.5-10.1) L Neutrophils (%) (Auto) 78.1 % (45.0-75.0) H Lymphocytes (%) (Auto) 8.3 % (20.0-45.0) L Monocytes (%) (Auto) 8.6 % (1.0-10.0) Eosinophils (%) (Auto) 4.4 % (0.0-3.0) H Basophils (%) (Auto) 0.6 % (0.0-2.0) Sodium Level 141 MMOL/L (136-145) Potassium Level 5.2 MMOL/L (3.5-5.1) H Chloride Level 102 MMOL/L (98-107) Carbon Dioxide Level 27 MMOL/L (21-32) Anion Gap 12 mmol/L (5-15) Blood Urea Nitrogen 71 mg/dL (7-18) H Creatinine 7.7 MG/DL (0.55-1.30) H Estimat Glomerular Filtration Rate 7.2 mL/min (>60) Glucose Level 85 MG/DL (74-106) Calcium Level 10.4 MG/DL (8.5-10.1) H Intake and Output 08/22/19 08/23/19 18:59 06:59 Intake Total 560 ml 120 ml Output Total 3000 ml Balance -2440 ml 120 ml Intake Oral 560 ml 120 ml Hemodialysis UF 3000 ml # Voids 1 Objective PHYSICAL EXAMINATION: GENERAL: The patient is a well-developed and well-nourished male, in no apparent distress. HEENT: Eyes, pupils are equal and responsive to light and accommodation. Extraocular movements are intact. NECK: Supple without lymphadenopathy. CHEST: Lungs are clear to auscultation bilaterally without wheezes or rales. CARDIOVASCULAR: Regular rhythm and rate. S1 and S2 are normal without murmurs, rubs, or gallops. ABDOMEN: Soft, nontender, and nondistended. Positive bowel sounds. No evidence of hepatosplenomegaly. Currently, no rebound or guarding noted. EXTREMITIES: Negative for clubbing, cyanosis, or edema. RECTAL/GENITAL: Not performed. NEUROLOGIC: Cranial nerves II through XII are grossly intact without focal deficits. Motor strength is 5/5 bilaterally. Deep tendon reflexes 2+ plantar. Assessment/Plan Assessment/Plan ASSESSMENT: This is a 63-year-old male. 1. Localized edema of the groin. 2. End-stage renal disease. 3. Congestive heart failure. 4. Hypertension. 5. Diabetes type 2. 6. Anemia secondary to renal failure. 7. Mobitz 1 second-degree AV block. 8. First-degree AV block. TREATMENT: 1. Edema of the groin. Volume overload. This may be secondary to missed dialysis as above. A Nephrology consultation has been obtained with Dr. Justin Santiago. 2. End-stage renal disease. The patient missed his dialysis on Tuesday, August 20, 2019. A Nephrology consultation has been obtained with Dr. Justin Hutson. We will follow recommendations of Nephrollogy. Last Hemodialysis 08/22/19. 3. Congestive heart failure. The patient's ejection fraction is 25%. A Cardiology consultation is pending with Dr. Nikko Resendiz. 5. Hypertension. Continue Coreg and hydralazine as above. 6. Diabetes type 2. A NovoLog sliding scale has been instituted. 7. Anemia secondary to renal failure. Kuldip Crisostomo MD Aug 23, 2019 16:04
--- NOTE | 2019-08-23 18:30 | Cardiology Progress Note ---
Assessment/Plan Assessment/Plan 1. Congestive heart failure. 2. Cardiomyopathy. 3. Systemic hypertension. 4. Diabetes mellitus type 2. 5. End-stage renal disease, on hemodialysis. 6. Dialysis noncompliance. 7. Mitral and tricuspid regurgitation. not a candidate for adriana i in the setting of poor dialysis complaince dialysis a pt allows repeat torp note no peak no sravani to suggest acs may need to decrease or stop bb if any sig fátima will use coreg 3.125 mg bid d/w learning and development administrator reviewed will need ot increase hyddralazie and isordill once dialysis at baseline weight and fluid statjus Subjective ROS Limited/Unobtainable: Yes Subjective sleeping (he usually rocha not like to talk if woken up) Objective Last 24 Hour Vital Signs Date Time Temp Pulse Resp B/P (MAP) Pulse Ox O2 Delivery O2 Flow Rate FiO2 08/23/19 17:38 147/67 08/23/19 16:00 98.0 73 22 152/81 (104) 96 08/23/19 13:06 147/67 08/23/19 11:53 98.1 60 18 147/67 (93) 93 08/23/19 11:33 58 08/23/19 11:13 95 Nasal Cannula 2.0 28 08/23/19 11:13 64 18 95 Nasal Cannula 2.0 28 08/23/19 09:02 162/73 08/23/19 09:01 66 162/73 08/23/19 09:01 162/73 08/23/19 08:10 Nasal Cannula 1.0 08/23/19 08:05 97.7 66 20 162/73 (102) 93 08/23/19 07:40 66 08/23/19 05:31 163/78 08/23/19 04:00 97.7 64 24 159/72 (101) 94 08/23/19 04:00 65 08/23/19 00:00 97.6 65 24 156/86 (109) 97 08/23/19 00:00 61 08/22/19 21:44 144/73 08/22/19 21:00 Nasal Cannula 1.0 08/22/19 20:12 67 18 98 Nasal Cannula 2.0 28 08/22/19 20:12 98 Nasal Cannula 2.0 28 08/22/19 20:10 59 120/68 08/22/19 20:00 97.8 59 24 120/68 (85) 98 08/22/19 20:00 59 General Appearance: no apparent distress Intake and Output 08/22/19 08/23/19 19:00 07:00 Intake Total 560 ml 240 ml Output Total 3000 ml Balance -2440 ml 240 ml Intake Oral 560 ml 240 ml Hemodialysis UF 3000 ml # Voids 1 Laboratory Tests Test 08/23/19 05:27 White Blood Count 9.7 K/UL (4.8-10.8) Red Blood Count 2.96 M/UL (4.70-6.10) L Hemoglobin 8.9 G/DL (14.2-18.0) L Hematocrit 28.3 % (42.0-52.0) L Mean Corpuscular Volume 96 FL (80-99) Mean Corpuscular Hemoglobin 29.9 PG (27.0-31.0) Mean Corpuscular Hemoglobin Concent 31.3 G/DL (32.0-36.0) L Red Cell Distribution Width 16.2 % (11.6-14.8) H Platelet Count 130 K/UL (150-450) L Mean Platelet Volume 4.9 FL (6.5-10.1) L Neutrophils (%) (Auto) 78.1 % (45.0-75.0) H Lymphocytes (%) (Auto) 8.3 % (20.0-45.0) L Monocytes (%) (Auto) 8.6 % (1.0-10.0) Eosinophils (%) (Auto) 4.4 % (0.0-3.0) H Basophils (%) (Auto) 0.6 % (0.0-2.0) Sodium Level 141 MMOL/L (136-145) Potassium Level 5.2 MMOL/L (3.5-5.1) H Chloride Level 102 MMOL/L (98-107) Carbon Dioxide Level 27 MMOL/L (21-32) Anion Gap 12 mmol/L (5-15) Blood Urea Nitrogen 71 mg/dL (7-18) H Creatinine 7.7 MG/DL (0.55-1.30) H Estimat Glomerular Filtration Rate 7.2 mL/min (>60) Glucose Level 85 MG/DL (74-106) Calcium Level 10.4 MG/DL (8.5-10.1) H Daneshrad,Nikko S. MD Aug 23, 2019 18:30
--- NOTE | 2019-08-23 19:35 | NUR ---
NURSE NOTES: Received pt and report from ANTONY Hillman. Observed pt on the bedside commode with HEEL COVERER at bedside. Pt is A/Ox3. fisher scallop is in placed, IV site intact, asymptomatic, and patent. Bed is in the lowest position and locked. Call light within reach. No signs/symptoms of acute distress noted at this time. Will continue plan of care.
--- NOTE | 2019-08-23 19:46 | NUR ---
HAND-OFF: Report given to Marina Katz.
[2019-08-23 20:00] VITALS: BP 127/65
[2019-08-23] MEDS: Dyna-Hex 2% Top Sol 2oz TOPIC SCH (20:44)
[2019-08-24] VITALS: BP 139/63
--- NOTE | 2019-08-24 02:22 | NUR ---
NURSE NOTES: Contacted [facility] to confirm that pt will receive HD today 08/24/19. Spoke to Jessica who said she will relay the message to the on-call dialysis nurse whom will call back.
[2019-08-24 04:00] VITALS: BP 140/66
[2019-08-24] MEDS: HydrALAZINE 25mg tab ORAL SCH ×2 (05:57→14:05)
[2019-08-24] MEDS ORDERED: Heparin Sod 1000 units/ml 10ml IV PRN (06:00)
--- NOTE | 2019-08-24 07:34 | NUR ---
HAND-OFF: Report given to ANTONY Jasso. Plan of care endorsed. Addendum: 08/24/19 at 0736 by Mercedes Nicole Mai, RN HAND-OFF: Report given to ANTONY Hillman
--- NOTE | 2019-08-24 07:43 | NUR ---
NURSE NOTES: Pt in bed sitting at the edge eating breakfast, bed alarm on, call light at bedside, pt makes needs known, Ox4 calm and cooperative, pt states he has scrotal pain 04/02 will be addressed with morning meds pass, pt scheduled for a breathing treatment, Addendum: 08/24/19 at 0749 by JET MOTA RN No s/s of distress however, he is experiencing SOB. Vitals WNL with BP slightly elevated .
[2019-08-24] MEDS: HYDROcodone/Acetamin 5/325 tab ORAL PRN ×2 (07:58→17:32)
[2019-08-24 08:08] VITALS: BP 151/68
[2019-08-24] MEDS: Heparin 5000 units/ml inj SUBQ SCH (09:00)
[2019-08-24] MEDS: Docusate 100mg cap ORAL SCH ×3 (09:14→18:06)
[2019-08-24] MEDS: Nephrovite tab (Rena-Vite) ORAL SCH (09:14)
[2019-08-24] MEDS: Lotrisone Cream 15gm TOPIC SCH ×2 (09:16→18:03)
[2019-08-24 11:57] VITALS: BP 137/68
--- NOTE | 2019-08-24 12:16 | Pulmonology Progress Note ---
Assessment/Plan Problems: (1) Pulmonary edema (2) Pleural effusion, right (3) Balanitis (4) ESRD needing dialysis (5) Anemia (6) HTN (hypertension) (7) Diabetes mellitus (8) Noncompliance with renal dialysis (9) Physical debility (10) Scrotal swelling Assessment/Plan feeling better no new complains monitor BP tele records reviewed, sinus fátima with lowest rate at 46 in the last 24 hours. respiratory treatment check electrolytes DNR is appropriate symptomatic treatment Subjective ROS Limited/Unobtainable: No Constitutional: Reports: no symptoms HEENT: Repors: no symptoms Allergies: Coded Allergies: No Known Allergies (Unverified , 07/06/19) Objective Last 24 Hour Vital Signs Date Time Temp Pulse Resp B/P (MAP) Pulse Ox O2 Delivery O2 Flow Rate FiO2 08/24/19 11:57 98.7 70 20 137/68 (91) 90 08/24/19 09:15 151/68 08/24/19 09:09 98.0 08/24/19 09:00 59 151/68 08/24/19 08:11 Nasal Cannula 1.0 08/24/19 08:08 96 Nasal Cannula 2.0 28 08/24/19 08:08 98.0 63 24 151/68 (95) 97 08/24/19 08:08 59 16 94 Nasal Cannula 2.0 28 08/24/19 08:00 66 08/24/19 05:57 154/74 08/24/19 04:00 98.4 62 19 140/66 (90) 95 08/24/19 04:00 59 08/24/19 00:00 59 08/24/19 00:00 98.1 59 21 139/63 (88) 95 08/23/19 22:11 137/73 08/23/19 21:00 Nasal Cannula 1.0 08/23/19 20:47 69 127/65 08/23/19 20:00 60 08/23/19 20:00 98.4 69 20 127/65 (85) 94 08/23/19 17:38 147/67 08/23/19 16:00 98.0 73 22 152/81 (104) 96 08/23/19 15:57 57 08/23/19 13:06 147/67 Intake and Output 08/23/19 08/24/19 18:59 06:59 Intake Total 400 ml 260 ml Balance 400 ml 260 ml Intake Oral 400 ml 260 ml # Voids 3 General Appearance: WD/WN HEENT: normocephalic, atraumatic Respiratory/Chest: chest wall non-tender, lungs clear Cardiovascular: normal peripheral pulses, normal rate Abdomen: normal bowel sounds, soft, non tender Genitourinary: normal external genitalia Extremities: no cyanosis Neurologic/Psychiatric: microphone boom operator II-XII grossly normal, no motor/sensory deficits Current Medications Medications (Trade) Dose Ordered Sig/Trav Route PRN Reason Start Time Stop Time Status Last Admin Dose Admin Acetaminophen (Tylenol) 650 mg Q4H PRN ORAL Fever 08/20/19 16:45 09/19/19 16:44 08/21/19 10:15 Acetaminophen/ Hydrocodone Bitart ([place] 5/325) 1 tab Q4H PRN ORAL Moderate Pain (Pain Scale 4-6) 08/21/19 12:00 08/28/19 11:59 08/24/19 07:58 Albuterol/ Ipratropium (Albuterol/ Ipratropium) 3 ml Q4H PRN HHN Shortness of Breath 08/20/19 16:45 08/25/19 16:44 08/22/19 00:17 Betamethasone/ Clotrimazole (Lotrisone) 1 applic TWICE A DAY TOPIC 08/21/19 12:30 09/20/19 12:29 08/24/19 09:16 Carvedilol (Coreg) 3.125 mg EVERY 12 HOURS ORAL 08/22/19 21:00 09/21/19 20:59 08/23/19 20:47 Chlorhexidine Gluconate (Kaylee-Hex 2%) 1 applic DAILY@1999 TOPIC 08/22/19 20:00 09/21/19 19:59 08/23/19 20:44 Clonidine HCl (Catapres Tab) 0.1 mg Q4H PRN ORAL SBP>160 08/20/19 16:30 09/19/19 16:29 08/23/19 09:02 Dextrose (Dextrose 50%) 25 ml Q30M PRN IV Hypoglycemia 08/20/19 16:45 09/19/19 16:44 Dextrose (Dextrose 50%) 50 ml Q30M PRN IV Hypoglycemia 08/20/19 16:45 09/19/19 16:44 Docusate Sodium (Colace) 100 mg THREE TIMES A DAY ORAL 08/20/19 18:00 09/19/19 17:59 08/24/19 09:14 Epoetin Garrett (Epoetin Garrett(ESRD on dialysis)) 2,000 unit TUE-TUE-TUE SUBQ 08/22/19 21:00 09/21/19 20:59 08/22/19 20:10 Epoetin Garrett (Epoetin Garrett(ESRD on dialysis)) 3,000 unit SUBQ 08/22/19 21:00 09/21/19 20:59 08/22/19 20:11 Escitalopram Oxalate (Lexapro) 10 mg DAILY ORAL 08/21/19 09:00 09/20/19 08:59 08/24/19 09:14 Heparin Sodium (Porcine) (Heparin 5000 units/ml) 5,000 units EVERY 12 HOURS SUBQ 08/20/19 21:00 09/19/19 20:59 08/22/19 09:24 Heparin Sodium (Porcine) (Heparin Sod 1000 units/ml 10ml) 500 unit ONCE PRN IV hd 08/24/19 06:00 08/24/19 23:59 Hydralazine HCl (Apresoline) 25 mg EVERY 8 HOURS ORAL 08/22/19 14:00 09/21/19 13:59 08/24/19 05:57 Isosorbide Dinitrate (Isordil) 10 mg BID ORAL 08/21/19 18:00 09/20/19 17:59 08/24/19 09:15 Ondansetron HCl (Zofran) 4 mg Q6H PRN IVP Nausea & Vomiting 08/20/19 16:45 09/19/19 16:44 08/22/19 20:32 Polyethylene Glycol (Miralax) 17 gm DAILYPRN PRN ORAL Constipation 08/20/19 16:45 09/19/19 16:44 08/23/19 13:04 Sevelamer Carbonate (Renvela) 800 mg THREE TIMES A DAY ORAL 08/22/19 18:00 09/21/19 17:59 08/24/19 09:14 Sodium Chloride 1,000 ml @ 500 mls/hr Q2H PRN IVLG sbp<90 during hd 08/24/19 06:00 08/24/19 23:59 Temazepam (Restoril) 15 mg HSPRN PRN ORAL Insomnia 08/20/19 16:45 08/27/19 16:44 Vitamin B Complex/ Vit C/Folic Acid (Nephrovite) 1 tab DAILY ORAL 08/21/19 09:00 09/20/19 08:59 08/24/19 09:14 Christy Mercer MD Aug 24, 2019 12:16
--- NOTE | 2019-08-24 14:14 | Nephrology Progress Note ---
Assessment/Plan Problem List: (1) ESRD needing dialysis (2) HTN (hypertension) (3) Anemia (4) Pulmonary edema (5) Diabetes mellitus (6) CHF (congestive heart failure) Plan continue as is DC per Dr Roblero Subjective Subjective pt was dialyzed today Objective Objective Last 24 Hour Vital Signs Date Time Temp Pulse Resp B/P (MAP) Pulse Ox O2 Delivery O2 Flow Rate FiO2 08/24/19 14:05 137/68 08/24/19 12:00 60 08/24/19 11:57 98.7 70 20 137/68 (91) 90 08/24/19 09:15 151/68 08/24/19 09:09 98.0 08/24/19 09:00 59 151/68 08/24/19 08:11 Nasal Cannula 1.0 08/24/19 08:08 96 Nasal Cannula 2.0 28 08/24/19 08:08 98.0 63 24 151/68 (95) 97 08/24/19 08:08 59 16 94 Nasal Cannula 2.0 28 08/24/19 08:00 66 08/24/19 05:57 154/74 08/24/19 04:00 98.4 62 19 140/66 (90) 95 08/24/19 04:00 59 08/24/19 00:00 59 08/24/19 00:00 98.1 59 21 139/63 (88) 95 08/23/19 22:11 137/73 08/23/19 21:00 Nasal Cannula 1.0 08/23/19 20:47 69 127/65 08/23/19 20:00 60 08/23/19 20:00 98.4 69 20 127/65 (85) 94 08/23/19 17:38 147/67 08/23/19 16:00 98.0 73 22 152/81 (104) 96 08/23/19 15:57 57 Intake and Output 08/23/19 08/24/19 18:59 06:59 Intake Total 400 ml 260 ml Balance 400 ml 260 ml Intake Oral 400 ml 260 ml # Voids 3 Height (Feet): 5 Height (Inches): 8.00 Weight (Pounds): 209 Cardiovascular: normal rate Respiratory/Chest: lungs clear Justin Hutson MD Aug 24, 2019 14:14
--- NOTE | 2019-08-24 15:45 | Internal Med Progress Note ---
Subjective Physician Name Geovany Roblero Attending Physician Geovany Roblero MD Current Medications Medications (Trade) Dose Ordered Sig/Trav Route PRN Reason Start Time Stop Time Status Last Admin Dose Admin Acetaminophen (Tylenol) 650 mg Q4H PRN ORAL Fever 08/20/19 16:45 09/19/19 16:44 08/21/19 10:15 Acetaminophen/ Hydrocodone Bitart ([place] 5/325) 1 tab Q4H PRN ORAL Moderate Pain (Pain Scale 4-6) 08/21/19 12:00 08/28/19 11:59 08/24/19 07:58 Albuterol/ Ipratropium (Albuterol/ Ipratropium) 3 ml Q4H PRN HHN Shortness of Breath 08/20/19 16:45 08/25/19 16:44 08/22/19 00:17 Betamethasone/ Clotrimazole (Lotrisone) 1 applic TWICE A DAY TOPIC 08/21/19 12:30 09/20/19 12:29 08/24/19 09:16 Carvedilol (Coreg) 3.125 mg EVERY 12 HOURS ORAL 08/22/19 21:00 09/21/19 20:59 08/23/19 20:47 Chlorhexidine Gluconate (Kaylee-Hex 2%) 1 applic DAILY@1999 TOPIC 08/22/19 20:00 09/21/19 19:59 08/23/19 20:44 Clonidine HCl (Catapres Tab) 0.1 mg Q4H PRN ORAL SBP>160 08/20/19 16:30 09/19/19 16:29 08/23/19 09:02 Dextrose (Dextrose 50%) 25 ml Q30M PRN IV Hypoglycemia 08/20/19 16:45 09/19/19 16:44 Dextrose (Dextrose 50%) 50 ml Q30M PRN IV Hypoglycemia 08/20/19 16:45 09/19/19 16:44 Docusate Sodium (Colace) 100 mg THREE TIMES A DAY ORAL 08/20/19 18:00 09/19/19 17:59 08/24/19 14:05 Epoetin Garrett (Epoetin Garrett(ESRD on dialysis)) 2,000 unit MON-WED-TUE SUBQ 08/22/19 21:00 09/21/19 20:59 08/22/19 20:10 Epoetin Garrett (Epoetin Garrett(ESRD on dialysis)) 3,000 unit TUE-TUE-TUE SUBQ 08/22/19 21:00 09/21/19 20:59 08/22/19 20:11 Escitalopram Oxalate (Lexapro) 10 mg DAILY ORAL 08/21/19 09:00 09/20/19 08:59 08/24/19 09:14 Heparin Sodium (Porcine) (Heparin 5000 units/ml) 5,000 units EVERY 12 HOURS SUBQ 08/20/19 21:00 09/19/19 20:59 08/22/19 09:24 Heparin Sodium (Porcine) (Heparin Sod 1000 units/ml 10ml) 500 unit ONCE PRN IV hd 08/24/19 06:00 08/24/19 23:59 Hydralazine HCl (Apresoline) 25 mg EVERY 8 HOURS ORAL 08/22/19 14:00 09/21/19 13:59 08/24/19 14:05 Isosorbide Dinitrate (Isordil) 10 mg BID ORAL 08/21/19 18:00 09/20/19 17:59 08/24/19 09:15 Ondansetron HCl (Zofran) 4 mg Q6H PRN IVP Nausea & Vomiting 08/20/19 16:45 09/19/19 16:44 08/22/19 20:32 Polyethylene Glycol (Miralax) 17 gm DAILYPRN PRN ORAL Constipation 08/20/19 16:45 09/19/19 16:44 08/23/19 13:04 Sevelamer Carbonate (Renvela) 800 mg THREE TIMES A DAY ORAL 08/22/19 18:00 09/21/19 17:59 08/24/19 14:05 Sodium Chloride 1,000 ml @ 500 mls/hr Q2H PRN IVLG sbp<90 during hd 08/24/19 06:00 08/24/19 23:59 Temazepam (Restoril) 15 mg HSPRN PRN ORAL Insomnia 08/20/19 16:45 08/27/19 16:44 Vitamin B Complex/ Vit C/Folic Acid (Nephrovite) 1 tab DAILY ORAL 08/21/19 09:00 09/20/19 08:59 08/24/19 09:14 Allergies: Coded Allergies: No Known Allergies (Unverified , 07/06/19) Subjective awake, alert, responsive, NAD, NO CP or SOB Objective Last Vital Signs Date Time Temp Pulse Resp B/P (MAP) Pulse Ox O2 Delivery O2 Flow Rate FiO2 08/24/19 14:05 137/68 08/24/19 12:00 60 08/24/19 11:57 98.7 20 90 08/24/19 08:11 Nasal Cannula 1.0 08/24/19 08:08 28 Intake and Output 08/23/19 08/24/19 18:59 06:59 Intake Total 400 ml 260 ml Balance 400 ml 260 ml Intake Oral 400 ml 260 ml # Voids 3 Objective General: No acute distress, awake and alert HEENT: NCAT, sclera anicteric, PERRL, EOMI. Neck: Supple, no significant jugular venous distention, Lungs: Fair inspiratory effort, clear to auscultation bilaterally, no Wheeze or Rales. CHEST WALL: Right side PermCath. Heart: Regular rate and rhythm, normal S1/S2, no murmur Abdomen: soft, nontender, nondistended. Normoactive bowel sounds, obesity / Rectal: Refused and deferred. Extremities: No Cyanosis , clubbing or edema. Neuro: A&O x 3, Able to move all extremities Skin: warm, no rashes or lesions Psych: Normal mood and affect Assessment/Plan Assessment/Plan (1) Pulmonary edema (2) Pleural effusion, right (3) Balanitis (4) ESRD needing dialysis (5) Anemia (6) HTN (hypertension) (7) Diabetes mellitus (8) Noncompliance with renal dialysis (9) Physical debility (10) Scrotal swelling Plan: Hemodialysis DC to SNF today. Geovany Roblero MD Aug 24, 2019 15:45
--- NOTE | 2019-08-24 15:50 | NUR ---
DISCHARGE PLANNING DISCHARGE ORDER NOTED Patient has been accepted to; [facility] [address] [place] [address] Bed: 121-D Skilled [phone] for Nurse to Nurse report [facility] ETA for transportation: 17:30
[2019-08-24 16:00] VITALS: BP 161/73
--- NOTE | 2019-08-24 17:18 | NUR ---
NURSE NOTES: Gave report to Brielle at Rehab
[2019-08-24 18:06] VITALS: BP 161/73
--- NOTE | 2019-08-24 18:45 | NUR ---
NURSE NOTES: [facility] here to pickup patient, pt has no IV ID band removed, pt Ox4 calm and cooperative Vitals WNL. pt has black cell phone with him..
--- NOTE | 2019-08-24 22:37 | Discharge Summary ---
Discharge Summary Discharge Summary _ DATE OF ADMISSION: 08/20/2019 DATE OF DISCHARGE: 08/24/2019 ADMITTING MD: Dr. Geovany Roblero DISCHARGED BY: Dr. Christy Mercer CONSULTANTS: Dr. Christy Resendiz [facility] COURSE: Patient is a 63-year-old male, with history of end-stage renal disease , on hemodialysis, who presented with a chief complaint of scrotal swelling. Patient presented with 2-day history of swelling in the scrotum. His legs had also been swollen. Patient missed dialysis on August 20, 2019. He has medical history significant for CHF, end-stage renal disease on hemodialysis every Tuesday, Tuesday and Tuesday, diabetes type 2, diabetic gastroparesis, diabetic neuropathy, GERD, hypertension, Mobitz 1 second-degree AV block, and cardiomyopathy with ejection fraction of 35%. On evaluation at the ED, blood work did not show any leukocytosis. Hemoglobin 9 , hematocrit 29. Electrolytes were normal. Troponin was elevated to 0.18. EKG showed second degree AV block, Mobitz type I. Chest x-ray showed interstitial edema. He was given aspirin and nitroglycerin pain. Patient denied chest pain. He was admitted to telemetry for evaluation of elevated troponin and scrotal swelling. Analyst Competitive Intelligence was consulted. EKG showed Mobitz 1 second-degree AV block. No significant ST or T wave abnormalities were documented. Medications were reviewed. He was continued on hydralazine 10 mg 4 times daily, he was given aspirin 81 mg daily. He was taking Coreg 12.5 mg twice daily. Due to bradycardia, beta-eduarda dose was decreased. Last echocardiogram done in June showed EF of 35%, moderate to severe mitral and tricuspid regurgitation. An attempted myocardial perfusion imaging was not assessed as the patient refused stress imaging. Patient has lack of compliance with dialysis. Adult Education Manager was consulted. He was given O2 support. He was placed on respiratory treatments. He received inpatient hemodialysis. He was given phosphate binders, Epogen and Nephro-Eduar. Swelling of the groin could be secondary to volume overload due to missed dialysis. He was given Lotrisone for balanitis. Troponin levels did not have any peak normal sravani to suggest ACS. He was eventually discharged to [facility]. FINAL DIAGNOSES: Pulmonary edema Right pleural effusion Balanitis End-stage renal disease on hemodialysis Anemia of CKD Hypertension Diabetes type 2 Noncompliance with renal dialysis Physical debility Scrotal swelling DISPOSITION: Patient was discharged to a SNF. DISCHARGE MEDICATIONS: Refer to Discharge Medication List. I have been assigned to complete a discharge summary on this account, I was not involved with the patient's management.--JOSHUA Jesus Jacqueline Robles NP Aug 24, 2019 22:37
--- NOTE | 2019-08-29 15:31 | Cardiology Report ---
APPROVED REPORT EKG Measurement Heart [id number] Sinus bradycardia with 1st degree AV block Nonspecific T wave abnormality Abnormal ECG
== END 2019-08-24 18:47 | DRG 640 ==
LOC: EMR 13:00 → 2E 13:22 → EDBEDREQ 14:15
PROC: 5A1D70Z Performance of Urinary Filtration, Intermittent, Less than 6 Hours Per Day (ICD-10-PCS; principal; 2019-08-22)
DX: E87.79 Other fluid overload (principal); N18.6 End stage renal disease; I13.2 Hypertensive heart and chronic kidney disease with heart failure and with stage 5 chronic kidney disease, or end stage renal disease; I42.9 Cardiomyopathy, unspecified; N50.89 Other specified disorders of the male genital organs; N48.1 Balanitis; E11.22 Type 2 diabetes mellitus with diabetic chronic kidney disease; I50.9 Heart failure, unspecified; Z99.2 Dependence on renal dialysis; Z91.15 Patient's noncompliance with renal dialysis; E11.40 Type 2 diabetes mellitus with diabetic neuropathy, unspecified; K21.9 Gastro-esophageal reflux disease without esophagitis; I44.1 Atrioventricular block, second degree; Z79.82 Long term (current) use of aspirin; Z79.4 Long term (current) use of insulin; I44.0 Atrioventricular block, first degree; N18.9 Chronic kidney disease, unspecified; D63.1 Anemia in chronic kidney disease; R53.81 Other malaise; F17.200 Nicotine dependence, unspecified, uncomplicated; I34.0 Nonrheumatic mitral (valve) insufficiency; I36.1 Nonrheumatic tricuspid (valve) insufficiency
CPT/HCPCS: 36415; 71045; 74018; 80048; 80053; 80069; 82550; 83690; 84484; 85025; 85610; 85730; 87081; 93005; 94640; 94664; 99285; J2405; J7620

== ENCOUNTER 2019-09-14 19:16 | Inpatient (IN) | payer MEDICARE, OTHER ==
[~2019-09-14] VITALS: Ht 172.7 cm; Wt 102.8 kg
[~2019-09-14 19:16] MED LIST changes: +KENALOG1 APPLIC TOPIC; +NEOSPORIN OINT30 GM TOPIC; +ONDANSETRON ODT4 MG BC; +VENOFER50 MG/2.5 IV
[2019-09-14 19:30] VITALS: BP 140/66
--- NOTE | 2019-09-14 19:35 | NUR ---
ED Nurse Note: pt presents to ED via EMS arrival RA 26, from [facility] for CP x 2 days that is localized to his L chest around the pectoral muscle. pt denies any radiation of pain and rates it a 10/10 at it's worst. pt describes the px as a "pressure" and "electricity." pt also reports feeling nauseated without vominting. paramedics gave pt 324 ASA and 0.4 nitro en route, pt reports relief of pain with this medication. pt goes to dialysis M,W,F, but did not finish today because of the CP. per EMS, pt is on 2L O2 via NC at home. Addendum: 09/14/19 at 2013 by AMIE pt is coming from [facility]
[2019-09-14] MEDS ORDERED: INSULIN NOVOLOG (19:43)
[2019-09-14] MEDS ORDERED: POLYETHYLENE GL17 GM ORAL (19:43)
[2019-09-14] MEDS ORDERED: NEPHROVITE1 TAB ORAL (19:43)
[2019-09-14] MEDS ORDERED: DIPHENHYDRAMINE25 M1 ORAL (19:43)
[2019-09-14] MEDS ORDERED: ACETAMINOPHEN325 M1 ORAL (19:43)
[2019-09-14] MEDS ORDERED: ACETAMINOPHEN500 M3 ORAL (19:43)
[2019-09-14] MEDS ORDERED: COREG12.5 MG ORAL (19:43)
[2019-09-14] MEDS ORDERED: ASPIRIN81 M3 PO (19:43)
[2019-09-14] MEDS ORDERED: CATAPRES0.1 MG ORAL (19:43)
[2019-09-14] MEDS ORDERED: EPOGEN3000 UNIT/ SUBQ (19:43)
[2019-09-14] MEDS ORDERED: ZOFRAN4 M1 ORAL (19:43)
[2019-09-14] MEDS ORDERED: FAMOTIDINE20 MG ORAL (19:43)
[2019-09-14] MEDS ORDERED: LEXAPRO5 MG ORAL (19:43)
[2019-09-14] MEDS ORDERED: DOCUSATE SODIU100 M2 ORAL (19:43)
[2019-09-14 19:52] LABS: HEMATOCRIT 30.1 % (42.0-52.0); HEMOGLOBIN 9.5 G/DL (14.2-18.0); MEAN CORPUSCULAR VOLUME 94 FL (80-99); PLATELET COUNT 99 K/UL (150-450); RED BLOOD COUNT 3.19 M/UL (4.70-6.10); RED CELL DISTRIBUTION WIDTH 15.8 % (11.6-14.8); WHITE BLOOD COUNT 12.1 K/UL (4.8-10.8)
[2019-09-14 19:53] LABS: BASOPHILS % (AUTO) 0.4 % (0.0-2.0); EOSINOPHILS % (AUTO) 1.9 % (0.0-3.0); LYMPHOCYTES % (AUTO) 5.8 % (20.0-45.0); MONOCYTES % (AUTO) 7.1 % (1.0-10.0); NEUTROPHILS % (AUTO) 84.8 % (45.0-75.0)
--- NOTE | 2019-09-14 20:06 | Emergency Room Report ---
History of Present Illness General Chief Complaint: Chest Pain Source: Patient, Medical Record Present Illness HPI 63-year-old male presents ED for evaluation. coming from SNF. Complaining of chest pain. On and off since yesterday. Was given nitro by EMS and states chest pain is resolved. States that he was having chest pain earlier today while on dialysis and had to stop his dialysis session. Gets dialysis Tuesday. Denies shortness of breath. Denies fevers or chills. Denies cough. No other aggravating relieving factors. Denies any other associated symptoms Allergies: Coded Allergies: No Known Allergies (Unverified , 07/06/19) Patient History Past Medical History: HTN, GERD, renal disease, dialysis Pertinent Family History: none Social History: Denies: smoking, alcohol use, drug use Immunizations: UTD Reviewed Nursing Documentation: PMH: Agreed; PSxH: Agreed Nursing Documentation-PMH Past Medical History: No History, Except For Hx Cardiac Problems: Yes Hx Hypertension: Yes Hx Diabetes: Yes Hx Cancer: No Hx Gastrointestinal Problems: Yes - GERD Hx Dialysis: Yes - (M, W, F) Hx Neurological Problems: No Hx Cerebrovascular Accident: No Hx Transient Ischemic Attacks: No Hx Dementia: No Hx Alzheimer's Disease: No Hx Parkinson's Disease: No Hx Meningitis: No Hx Encephalitis: No Hx Seizures: No Hx Epilepsy: No Hx Multiple Sclerosis: No Hx Cerebral Palsy: No Hx Amyotrophic Lat Sclerosis: No Hx Guillian-Hollandale Syndrome: No Hx Paralysis: No Hx Peripheral Neuropathy: No Hx Spinal Cord Injury: No Hx Head Trauma: No Hx Traumatic Brain Injury: No Hx Memory Loss: No Hx Concentration Difficulty: No Hx Speech Problem: No Hx Tremors: No Hx Vertigo: No Hx Dizziness: No Hx Syncope: No Hx Headaches: No Hx Aphasia: No Hx Dysphasia: No Hx Numbness: No Hx Weakness: No Hx Fatigue: No Hx Neurologic Surgery: No Hx Brain Shunt: No Review of Systems All Other Systems: negative except mentioned in HPI Physical Exam Vital Signs Date Time Temp Pulse Resp B/P (MAP) Pulse Ox O2 Delivery O2 Flow Rate FiO2 09/14/19 19:14 99.0 72 18 140/66 (90) 94 Nasal Cannula 3.0 Sp02 EP Interpretation: reviewed, normal General Appearance: no apparent distress, alert, GCS 15, non-toxic Head: normocephalic, atraumatic Eyes: bilateral eye normal inspection, bilateral eye PERRL ENT: hearing grossly normal, normal pharynx, no angioedema, normal voice Neck: full range of motion, supple/symm/no masses Respiratory: chest non-tender, lungs clear, normal breath sounds, speaking full sentences, other - permacath R chest Cardiovascular #1: regular rate, rhythm, no edema Cardiovascular #2: 2+ carotid (R), 2+ carotid (L), 2+ radial (R), 2+ radial (L) , 2+ dorsalis pedis (R), 2+ dorsalis pedis (L) Gastrointestinal: normal bowel sounds, non tender, soft, non-distended, no guarding, no rebound Rectal: deferred Genitourinary: normal inspection, no CVA tenderness Musculoskeletal: back normal, normal range of motion, gait/station normal, non- tender Neurologic: alert, motor strength/tone normal, oriented x3, sensory intact, responsive, speech normal Psychiatric: judgement/insight normal, memory normal, mood/affect normal, no suicidal/homicidal ideation Reflexes: 3+ bicep (R), 3+ bicep (L), 3+ tricep (R), 3+ tricep (L), 3+ knee (R) , 3+ knee (L) Skin: other - see nursing notes for skin Lymphatic: no adenopathy Medical Decision Making Diagnostic Impression: Primary Impression: Chest pain Qualified Codes: R07.9 - Chest pain, unspecified Additional Impression: ESRD (end stage renal disease) on dialysis ER Course Hospital Course 63 yo M presents to ED c/o chest pain. given Nitro/ASA by EMS Differential diagnoses include: CA/unstable angina, contusion, muscle strain, PTX, rib fracture Clinical course Patient placed on stretcher. on environmental monitoring specialist. After initial history and physical I ordered labs, EKG, chest x-ray labs reviewed- minimal leukocytosis, hb/hct stable, BUN/Cr elevated, K ok, Trop 0.132 EKG - NSR, no acute ischemic changes interpreted by me Chest x-ray- cardiomegaly, bilateral effusions, R sided permacath patient has no chest pain during ED course. vitals stable. Case discussed with Dr. Roblero and he agreed to accept the patient to his service for further care and support I. I feel this is a highly complex case requiring extensive working including EKG/Rhythm strip, Xray/CT/US, Blood/urine lab work, repeat exams while in ED, and administration of strong opiates/narcotics for pain control, admission to hospital or close patient follow up. Diagnosis - chest pain, ESRD on dialysis admitted to telemetry in serious condition Labs Test 09/14/19 19:30 White Blood Count 12.1 K/UL (4.8-10.8) Red Blood Count 3.19 M/UL (4.70-6.10) Hemoglobin 9.5 G/DL (14.2-18.0) Hematocrit 30.1 % (42.0-52.0) Mean Corpuscular Volume 94 FL (80-99) Mean Corpuscular Hemoglobin 29.9 PG (27.0-31.0) Mean Corpuscular Hemoglobin Concent 31.7 G/DL (32.0-36.0) Red Cell Distribution Width 15.8 % (11.6-14.8) Platelet Count 99 K/UL (150-450) Mean Platelet Volume 5.0 FL (6.5-10.1) Neutrophils (%) (Auto) 84.8 % (45.0-75.0) Lymphocytes (%) (Auto) 5.8 % (20.0-45.0) Monocytes (%) (Auto) 7.1 % (1.0-10.0) Eosinophils (%) (Auto) 1.9 % (0.0-3.0) Basophils (%) (Auto) 0.4 % (0.0-2.0) Sodium Level 137 MMOL/L (136-145) Potassium Level 3.9 MMOL/L (3.5-5.1) Chloride Level 98 MMOL/L (98-107) Carbon Dioxide Level 32 MMOL/L (21-32) Anion Gap 7 mmol/L (5-15) Blood Urea Nitrogen 42 mg/dL (7-18) Creatinine 4.4 MG/DL (0.55-1.30) Estimat Glomerular Filtration Rate 13.7 mL/min (>60) Glucose Level 151 MG/DL (74-106) Calcium Level 9.4 MG/DL (8.5-10.1) Total Bilirubin 0.6 MG/DL (0.2-1.0) Aspartate Amino Transf (AST/SGOT) 70 U/L (15-37) Alanine Aminotransferase (ALT/SGPT) 85 U/L (12-78) Alkaline Phosphatase 321 U/L (46-116) Troponin I 0.132 ng/mL (0.000-0.056) Pro-B-Type Natriuretic Peptide > 39212 pg/mL (0-125) Total Protein 8.2 G/DL (6.4-8.2) Albumin 2.7 G/DL (3.4-5.0) Globulin 5.5 g/dL Albumin/Globulin Ratio 0.5 (1.0-2.7) EKG Diagnostic Results Rate: normal Rhythm: NSR ST Segments: no acute changes ASA given to the pt in ED: No - given by ems Rhythm Strip Diag. Results EP Interpretation: yes Rhythm: NSR, no PVC's Chest X-Ray Diagnostic Results Chest X-Ray Diagnostic Results : Chest X-Ray Ordered: Yes # of Views/Limited/Complete: 1 View Indication: Chest Pain EP Interpretation: Yes Interpretation: no consolidation, no pneumothorax, other - bilateral pleural effusions Impression: Other - pleural effusion Electronically Signed by: Electronically signed by Edd Conte MD Last Vital Signs Date Time Temp Pulse Resp B/P (MAP) Pulse Ox O2 Delivery O2 Flow Rate FiO2 09/14/19 19:30 99.0 18 140/66 94 Nasal Cannula 3.0 09/14/19 19:30 72 Status: improved Disposition: ADMITTED INPATIENT Condition: Serious Edd Conte MD Sep 14, 2019 20:06
[2019-09-14 20:08] LABS: ANION GAP 7 mmol/L (5-15); BLOOD UREA NITROGEN 42 mg/dL (7-18); CALCIUM 9.4 MG/DL (8.5-10.1); CARBON DIOXIDE 32 MMOL/L (21-32); CHLORIDE 98 MMOL/L (98-107); CREATININE 4.4 MG/DL (0.55-1.30); POTASSIUM 3.9 MMOL/L (3.5-5.1); SODIUM 137 MMOL/L (136-145)
[2019-09-14 20:18] LABS: ALANINE AMINOTRANSFERASE 85 U/L (12-78); ALBUMIN 2.7 G/DL (3.4-5.0); ALBUMIN/GLOBULIN RATIO 0.5 (1.0-2.7); ALKALINE PHOSPHATASE 321 U/L (46-116); ASPARTATE AMINO TRANSFERASE 70 U/L (15-37); BILIRUBIN,TOTAL 0.6 MG/DL (0.2-1.0)
--- NOTE | 2019-09-14 20:40 | Diagnostic Imaging Report ---
EXAM: XR Chest, 1 View CLINICAL HISTORY: CP TECHNIQUE: Frontal view of the chest. COMPARISON: 08/20/2019 FINDINGS: Lungs: Unchanged low lung volumes. Pleural space: Similar-appearing, perhaps mildly improved right small- moderate and left small pleural effusions with passive atelectasis or consolidation, correlate clinically. No pneumothorax. Heart: Unchanged cardiomegaly. Mediastinum: Unremarkable. Bones/joints: Unremarkable. Tubes, lines and devices: Unchanged right IJ approach dual-lumen catheter, tip near the cavoatrial junction. IMPRESSION: 1. Unchanged right IJ approach dual-lumen catheter, tip near the cavoatrial junction. 2. Similar-appearing, perhaps mildly improved right small-moderate and left small pleural effusions with passive atelectasis or consolidation, correlate clinically. 3. Unchanged cardiomegaly. 4. Unchanged low lung volumes.
--- NOTE | 2019-09-14 21:28 | NUR ---
TRANSFER TO FLOOR: Patient transferred to as ordered, per ERMHuang Conte. Report given to . Belongings sent with pt.
[2019-09-14 21:30] VITALS: BP 168/76
--- NOTE | 2019-09-14 22:25 | NUR ---
NURSE NOTES: Notified Dr. Roblero for admitting orders. Informed him that patient is in 2nd degree type 1 block, heart rate fluctuating down to 48. BLE edema, lung congested, coughing, non productive. Bilateral rhonchi, all lobes. Patient is still alert and oriented x2 at baseline. States he feels fine. O2 sat fluctuating between 90 down to 78 %, extremities cool to the touch. Instructed by Dr. Roblero that he will put in the admitting orders, and to call Dr. Hoyos now for dialysis orders.
[2019-09-14 22:48] VITALS: BP 143/60
[2019-09-14] MEDS ORDERED: Morphine Sulfate 2mg/ml Inj(IV/IM USE ONLY) IVP PRN (23:00)
[2019-09-14] MEDS ORDERED: Miralax 17gm pkt ORAL PRN ×2 (23:00)
[2019-09-14] MEDS ORDERED: Acetaminophen 500mg (ES) tab ORAL SCH (23:00)
--- NOTE | 2019-09-14 23:03 | NUR ---
NURSE NOTES: Notified Dr. Hoyos of patient's condition and that Dr. Roblero is requesting dialysis orders for the patient.
--- NOTE | 2019-09-14 23:04 | NUR ---
NURSE NOTES: Notified Dr. Roblero that patient is a DNR/DNI according to the POLST.
--- NOTE | 2019-09-14 23:11 | NUR ---
NURSE NOTES: Received call from Dr. Hoyos, instructed to call [facility] and that he will be putting in orders for emergency HD but no need to call him back if the dialysis happens late.
--- NOTE | 2019-09-14 23:29 | NUR ---
NURSE NOTES: Informed by Dr. Hoyos that patient was previously under the care of Dr. Justin Hutson and that he already notified Dr. Hutson and Dr. Roblero regarding the change in nephrology consult but will still put in the dialysis order.
--- NOTE | 2019-09-14 23:38 | NUR ---
NURSE NOTES: Notified [facility], spoke with Hong regarding urgent dialysis order by Dr. Hoyos. Instructed that she will call Morgan, promotions executive producer HD RN.
[2019-09-15] VITALS: BP 146/70
--- NOTE | 2019-09-15 00:23 | NUR ---
NURSE NOTES: Received call from lab, troponin 0.135, previous troponin was 0.132.
[2019-09-15] MEDS: Morphine Sulfate 2mg/ml Inj(IV/IM USE ONLY) IVP PRN ×6 (01:41→22:02)
[2019-09-15 05:47] LABS: HEMATOCRIT 26.7 % (42.0-52.0); HEMOGLOBIN 8.3 G/DL (14.2-18.0); MEAN CORPUSCULAR VOLUME 95 FL (80-99); PLATELET COUNT 89 K/UL (150-450); RED BLOOD COUNT 2.81 M/UL (4.70-6.10); RED CELL DISTRIBUTION WIDTH 15.9 % (11.6-14.8); WHITE BLOOD COUNT 12.4 K/UL (4.8-10.8)
[2019-09-15 06:16] LABS: ALANINE AMINOTRANSFERASE 87 U/L (12-78); ALBUMIN 2.7 G/DL (3.4-5.0); ALBUMIN/GLOBULIN RATIO 0.5 (1.0-2.7); ALKALINE PHOSPHATASE 323 U/L (46-116); ANION GAP 11 mmol/L (5-15); ASPARTATE AMINO TRANSFERASE 61 U/L (15-37); BILIRUBIN,TOTAL 0.6 MG/DL (0.2-1.0); BLOOD UREA NITROGEN 44 mg/dL (7-18); CALCIUM 9.5 MG/DL (8.5-10.1); CARBON DIOXIDE 28 MMOL/L (21-32); CHLORIDE 99 MMOL/L (98-107); CREATININE 4.7 MG/DL (0.55-1.30); PHOSPHORUS 5.3 MG/DL (2.5-4.9); POTASSIUM 3.8 MMOL/L (3.5-5.1); SODIUM 137 MMOL/L (136-145)
[2019-09-15] MEDS: NovoLOG Insulin Flexpen SUBQ SCH ×4 (06:30→21:00)
--- NOTE | 2019-09-15 07:36 | NUR ---
NURSE NOTES: Patient received from Vinh HARDY. Patient stable at this time receiving dialysis. Pt now eating his breakfast in bed. No s/sx of distress. RR even and unlabored. Call light within reach, bed low and locked, side rails up x2. Will continue to monitor
[2019-09-15 08:00] VITALS: BP 139/74
[2019-09-15] MEDS: Docusate 100mg cap ORAL SCH ×4 (09:00→21:00)
[2019-09-15] MEDS: Triamcinolone 0.1% oint TOPIC SCH ×3 (09:00→17:49)
[2019-09-15] MEDS: Aspirin Baby 81mg ORAL SCH (09:37)
[2019-09-15] MEDS: Carvedilol 12.5mg tab ORAL SCH ×2 (09:37→21:00)
[2019-09-15] MEDS: HydrALAZINE 10mg Tab ORAL SCH ×2 (09:38→13:30)
[2019-09-15] MEDS: Nephrovite tab (Rena-Vite) ORAL SCH (09:38)
[2019-09-15] MEDS: Nitroglycerin Subl 0.4mg tab SL PRN ×3 (10:53→11:03)
[2019-09-15 11:26] VITALS: BP 140/76
--- NOTE | 2019-09-15 11:26 | NUR ---
NURSE NOTES: Pt complaining of Chest pain. VSS BP 140/76 HR 63 Pain 8/10 to chest. Nitroglycerin given x3. ECG performed and showed 1st degree AVB. Dr. Roblero informed. Will follow up and call again. Will continue to monitor. Addendum: 09/15/19 at 1131 by GARRETT WOLF RN Dr. Roblero at bedside. Cardiac MD consulted.
--- NOTE | 2019-09-15 12:21 | History & Physical ---
History and Physical History & Physicial Geovany Roblero MD Sep 15, 2019 12:21
[2019-09-15 12:26] VITALS: BP 140/63
--- NOTE | 2019-09-15 13:26 | Consultation ---
History of Present Illness General Chief Complaint: Chest Pain Present Illness Allergies: Coded Allergies: No Known Allergies (Unverified , 07/06/19) Medication History Scheduled Acetaminophen* (Acetaminophen Extra Strength*), 500 MG ORAL Q6H, (Reported) Aspirin* (Aspirin*), 81 MG ORAL DAILY, (Reported) Carvedilol (Coreg), 12.5 MG ORAL EVERY 12 HOURS, (Reported) Clonidine Hcl* (Catapres*), 0.1 MG ORAL EVERY 4 HOURS, (Reported) Docusate Sodium* (Docusate Sodium*), 100 MG ORAL TID ON T,TH,S,S, (Reported) Epoetin Garrett (Epogen), 3,000 UNIT SUBQ 3XW, (Reported) Escitalopram Oxalate* (Lexapro*), 10 MG ORAL DAILY Famotidine* (Pepcid 20mg tablet*), 20 MG ORAL DAILY, (Reported) Hydralazine HCl (Hydralazine HCl), 10 MG ORAL QID Insulin Aspart (Novolog Flexpen), UNIT SUBQ .SLIDING SCALE, (Reported) Iron Sucrose Complex (Venofer), 50 MG IV WEEKLY, (Reported) Triamcinolone Acetonide (Triamcinolone Acetonide), 1 APPLIC TOPIC TID, (Reported ) Vitamin B Cmplx/Vit C/Folic AC (Nephro-Eduar Tablet), 1 TAB ORAL DAILY, (Reported ) Scheduled PRN Diphenhydramine Hcl* (Diphenhydramine Hcl*), 25 MG ORAL Q6H PRN for Itching, ( Reported) Ondansetron (Zofran), 4 MG ORAL Q6H PRN for Nausea & Vomiting, (Reported) Polyethylene Glycol 3350* (Polyethylene Glycol 3350*), 17 GM ORAL BEDTIME PRN for Constipation, (Reported) Discontinued Medications Acetaminophen* (Acetaminophen 325MG Tablet*), 325 MG ORAL Q6H PRN for PAIN 5-7, (Reported) Discontinued Reason: Therapy completed Acetaminophen* (Acetaminophen Extra Strength*), 1,000 MG ORAL Q6H, (Reported) Discontinued Reason: Medication dose changed Aspirin (Aspirin), 81 MG PO DAILY, (Reported) Discontinued Reason: Therapy completed Carvedilol (Coreg), 12.5 MG ORAL EVERY 12 HOURS Discontinued Reason: Therapy completed Clonidine Hcl* (Catapres*), 0.1 MG ORAL EVERY 4 HOURS PRN for SBP>160, (Reported ) Discontinued Reason: Therapy completed Diphenhydramine Hcl* (Benadryl*), 25 MG ORAL Q6H PRN for Itching, (Reported) Discontinued Reason: Therapy completed Docusate Sodium (Docusate Sodium), 100 MG ORAL TID, (Reported) Discontinued Reason: Therapy completed Epoetin Garrett (Epogen), 3,000 UNIT SUBQ 3XW, (Reported) Discontinued Reason: Therapy completed Escitalopram Oxalate (Lexapro), 10 MG ORAL DAILY, (Reported) Discontinued Reason: Therapy completed Famotidine* (Pepcid 20mg tablet*), 20 MG ORAL DAILY Discontinued Reason: Therapy completed Neomycin/Polymyxin/Bacitracin* (Triple Antibiotic Ointment*), 1 APPLIC TOPIC DAILY, (Reported) Discontinued Reason: Therapy completed Ondansetron Odt* (Zofran Odt*), 4 MG BC EVERY 6 HOURS PRN for Nausea & Vomiting, (Reported) Discontinued Reason: Therapy completed Polyethylene Glycol 3350* (Polyethylene Glycol 3350*), 17 GM ORAL BEDTIME PRN for Constipation, (Reported) Discontinued Reason: Therapy completed Vitamin B Cmplx/Vit C/Folic AC (Nephro-Eduar Tablet), 1 TAB ORAL DAILY Discontinued Reason: Therapy completed [Insulin Novolog], (Reported) Discontinued Reason: Therapy completed Patient History Healthcare decision maker Resuscitation status Do Not Resuscitate Advanced Directive on File Physical Exam Last 24 Hour Vital Signs Date Time Temp Pulse Resp B/P (MAP) Pulse Ox O2 Delivery O2 Flow Rate FiO2 09/15/19 12:26 97.1 60 20 140/63 (88) 98 09/15/19 12:00 59 09/15/19 11:26 63 140/76 (97) 09/15/19 11:03 140/76 09/15/19 10:58 140/76 09/15/19 10:53 140/76 09/15/19 09:38 139/74 09/15/19 09:37 65 139/74 09/15/19 09:00 Nasal Cannula 2.0 09/15/19 08:00 61 09/15/19 08:00 97.2 65 20 139/74 (95) 94 09/15/19 06:54 97.5 09/15/19 04:23 97.5 09/15/19 04:00 55 09/15/19 00:00 97.5 55 20 146/70 (95) 97 09/14/19 23:54 46 09/14/19 23:44 44 09/14/19 23:07 45 09/14/19 22:48 97.4 57 20 143/60 (87) 90 09/14/19 22:48 47 09/14/19 22:30 48 09/14/19 22:00 57 09/14/19 22:00 57 09/14/19 22:00 Nasal Cannula 2.0 09/14/19 21:30 60 18 168/76 (106) 99 09/14/19 21:28 99.0 65 17 145/70 100 Nasal Cannula 2.0 09/14/19 19:30 99.0 18 140/66 94 Nasal Cannula 3.0 09/14/19 19:30 72 18 Nasal Cannula 3.0 09/14/19 19:14 99.0 72 18 140/66 (90) 94 Nasal Cannula 3.0 Intake and Output 09/14/19 09/15/19 19:00 07:00 Intake Total 0 ml Balance 0 ml Intake Oral 0 ml Laboratory Tests Test 09/14/19 19:30 09/14/19 20:55 09/14/19 23:45 09/15/19 04:00 White Blood Count 12.1 K/UL (4.8-10.8) H 12.4 K/UL (4.8-10.8) H Red Blood Count 3.19 M/UL (4.70-6.10) L 2.81 M/UL (4.70-6.10) L Hemoglobin 9.5 G/DL (14.2-18.0) L 8.3 G/DL (14.2-18.0) L Hematocrit 30.1 % (42.0-52.0) L 26.7 % (42.0-52.0) L Mean Corpuscular Volume 94 FL (80-99) 95 FL (80-99) Mean Corpuscular Hemoglobin 29.9 PG (27.0-31.0) 29.7 PG (27.0-31.0) Mean Corpuscular Hemoglobin Concent 31.7 G/DL (32.0-36.0) L 31.2 G/DL (32.0-36.0) L Red Cell Distribution Width 15.8 % (11.6-14.8) H 15.9 % (11.6-14.8) H Platelet Count 99 K/UL (150-450) L 89 K/UL (150-450) L Mean Platelet Volume 5.0 FL (6.5-10.1) L 5.0 FL (6.5-10.1) L Neutrophils (%) (Auto) 84.8 % (45.0-75.0) H % (45.0-75.0) Lymphocytes (%) (Auto) 5.8 % (20.0-45.0) L % (20.0-45.0) Monocytes (%) (Auto) 7.1 % (1.0-10.0) % (1.0-10.0) Eosinophils (%) (Auto) 1.9 % (0.0-3.0) % (0.0-3.0) Basophils (%) (Auto) 0.4 % (0.0-2.0) % (0.0-2.0) Sodium Level 137 MMOL/L (136-145) 137 MMOL/L (136-145) Potassium Level 3.9 MMOL/L (3.5-5.1) 3.8 MMOL/L (3.5-5.1) Chloride Level 98 MMOL/L (98-107) 99 MMOL/L (98-107) Carbon Dioxide Level 32 MMOL/L (21-32) 28 MMOL/L (21-32) Anion Gap 7 mmol/L (5-15) 11 mmol/L (5-15) Blood Urea Nitrogen 42 mg/dL (7-18) H 44 mg/dL (7-18) H Creatinine 4.4 MG/DL (0.55-1.30) H 4.7 MG/DL (0.55-1.30) H Estimat Glomerular Filtration Rate 13.7 mL/min (>60) 12.7 mL/min (>60) Glucose Level 151 MG/DL (74-106) H 122 MG/DL (74-106) H Calcium Level 9.4 MG/DL (8.5-10.1) 9.5 MG/DL (8.5-10.1) Total Bilirubin 0.6 MG/DL (0.2-1.0) 0.6 MG/DL (0.2-1.0) Aspartate Amino Transf (AST/SGOT) 70 U/L (15-37) H 61 U/L (15-37) H Alanine Aminotransferase (ALT/SGPT) 85 U/L (12-78) H 87 U/L (12-78) H Alkaline Phosphatase 321 U/L (46-116) H 323 U/L (46-116) H Troponin I 0.132 ng/mL (0.000-0.056) 0.135 ng/mL (0.000-0.056) 0.128 ng/mL (0.000-0.056) Pro-B-Type Natriuretic Peptide > 66225 pg/mL (0-125) H Total Protein 8.2 G/DL (6.4-8.2) 8.2 G/DL (6.4-8.2) Albumin 2.7 G/DL (3.4-5.0) L 2.7 G/DL (3.4-5.0) L Globulin 5.5 g/dL 5.5 g/dL Albumin/Globulin Ratio 0.5 (1.0-2.7) L 0.5 (1.0-2.7) L Lactic Acid Level 0.60 mmol/L (0.4-2.0) Differential Total Cells Counted 100 Neutrophils % (Manual) 83 % (45-75) H Lymphocytes % (Manual) 7 % (20-45) L Monocytes % (Manual) 8 % (1-10) Eosinophils % (Manual) 2 % (0-3) Basophils % (Manual) 0 % (0-2) Band Neutrophils 0 % (0-8) Platelet Estimate Decreased L Platelet Morphology Normal Phosphorus Level 5.3 MG/DL (2.5-4.9) H Magnesium Level 2.0 MG/DL (1.8-2.4) Hepatitis B Surface Antigen Pending Height (Feet): 5 Height (Inches): 8.00 Weight (Pounds): 201 Medications Current Medications Medications (Trade) Dose Ordered Sig/Trav Route PRN Reason Start Time Stop Time Status Last Admin Dose Admin Acetaminophen (Tylenol) 500 mg Q6H PRN ORAL Mild Pain (Pain Scale 1-3) 09/15/19 00:15 10/14/19 22:59 Acetaminophen (Tylenol) 650 mg Q4H PRN ORAL Mild Pain (Pain Scale 1-3) 09/14/19 23:00 10/14/19 22:59 09/15/19 06:54 Aspirin (ASA) 81 mg DAILY ORAL 09/15/19 09:00 10/15/19 08:59 09/15/19 09:37 Carvedilol (Coreg) 12.5 mg EVERY 12 HOURS ORAL 09/15/19 09:00 10/15/19 08:59 09/15/19 09:37 Clonidine HCl (Catapres Tab) 0.1 mg EVERY 4 HOURS PRN ORAL For High Blood Pressure 09/15/19 01:00 10/15/19 00:59 Dextrose (Dextrose 50%) 25 ml Q30M PRN IV Hypoglycemia 09/14/19 23:00 10/14/19 22:59 Dextrose (Dextrose 50%) 50 ml Q30M PRN IV Hypoglycemia 09/14/19 23:00 10/14/19 22:59 Diphenhydramine HCl (Benadryl) 25 mg Q6H PRN ORAL Itching/Pruritis 09/14/19 23:00 10/14/19 22:59 Docusate Sodium (Colace) 100 mg BID ORAL 09/15/19 09:00 10/15/19 08:59 Docusate Sodium (Colace) 100 mg EVERY 12 HOURS ORAL 09/15/19 09:00 10/15/19 08:59 09/15/19 09:38 Famotidine (Pepcid) 20 mg DAILY ORAL 09/15/19 09:00 10/15/19 08:59 09/15/19 09:37 Heparin Sodium (Porcine) (Heparin 5000 units/ml) 5,000 units EVERY 12 HOURS SUBQ 09/15/19 09:00 10/15/19 08:59 UNV Hydralazine HCl (Apresoline) 10 mg QID ORAL 09/15/19 09:00 10/15/19 08:59 09/15/19 09:38 Insulin Aspart (NovoLOG) BEFORE MEALS AND HS SUBQ 09/15/19 06:30 10/15/19 06:29 Morphine Sulfate (Morphine Sulfate) 1 mg Q4HR PRN IVP For Pain 09/14/19 23:00 09/21/19 22:59 Morphine Sulfate (Morphine Sulfate) 2 mg Q4HR PRN IVP Severe Pain (Pain Scale 7-10) 09/14/19 23:00 09/21/19 22:59 09/15/19 09:39 Nitroglycerin (Ntg) 0.4 mg Q5M PRN SL Prn Chest Pain 09/14/19 23:00 10/14/19 22:59 09/15/19 11:03 Ondansetron HCl (Zofran) 4 mg Q6H PRN ORAL Nausea & Vomiting 09/14/19 23:00 10/14/19 22:59 Pantoprazole (Protonix) 40 mg DAILY ORAL 09/15/19 09:00 10/15/19 08:59 09/15/19 09:38 Polyethylene Glycol (Miralax) 17 gm BEDTIME PRN ORAL Constipation 09/14/19 23:00 10/14/19 22:59 Polyethylene Glycol (Miralax) 17 gm DAILYPRN PRN ORAL Constipation 09/14/19 23:00 10/14/19 22:59 Prochlorperazine (Compazine) 10 mg Q6H PRN IVP Nausea & Vomiting 09/14/19 23:00 10/14/19 22:59 Triamcinolone (Kenalog) 1 applic TID TOPIC 09/15/19 09:00 10/15/19 08:59 Vitamin B Complex/ Vit C/Folic Acid (Nephrovite) 1 tab DAILY ORAL 09/15/19 09:00 10/15/19 08:59 09/15/19 09:38 Assessment/Plan Problem List: (1) Pulmonary edema ICD Codes: J81.1 - Chronic pulmonary edema SNOMED: 11981832 (2) CHF (congestive heart failure) ICD Codes: I50.9 - Heart failure, unspecified SNOMED: 97650513 (3) Physical debility ICD Codes: R53.81 - Other malaise SNOMED: 94367150 (4) Pleural effusion, right ICD Codes: J90 - Pleural effusion, not elsewhere classified SNOMED: 63426407 (5) Anemia ICD Codes: D64.9 - Anemia, unspecified SNOMED: 428295176 (6) ESRD needing dialysis ICD Codes: N18.6 - End stage renal disease; Z99.2 - Dependence on renal dialysis SNOMED: 44699948 (7) Diabetes mellitus ICD Codes: E11.9 - Type 2 diabetes mellitus without complications SNOMED: 00334875 (8) HTN (hypertension) ICD Codes: I10 - Essential (primary) hypertension SNOMED: 35195275 Christy Mercer MD Sep 15, 2019 13:26
[2019-09-15] MEDS: Heparin 5000 units/ml inj SUBQ SCH ×2 (13:45→21:00)
--- NOTE | 2019-09-15 14:00 | Cardiac Electrophysiology PN ---
Subjective Subjective [id number] Objective Last 24 Hour Vital Signs Date Time Temp Pulse Resp B/P (MAP) Pulse Ox O2 Delivery O2 Flow Rate FiO2 09/15/19 13:30 140/63 09/15/19 12:26 97.1 60 20 140/63 (88) 98 09/15/19 12:00 59 09/15/19 11:26 63 140/76 (97) 09/15/19 11:03 140/76 09/15/19 10:58 140/76 09/15/19 10:53 140/76 09/15/19 09:38 139/74 09/15/19 09:37 65 139/74 09/15/19 09:00 Nasal Cannula 2.0 09/15/19 08:00 61 09/15/19 08:00 97.2 65 20 139/74 (95) 94 09/15/19 06:54 97.5 09/15/19 04:23 97.5 09/15/19 04:00 55 09/15/19 00:00 97.5 55 20 146/70 (95) 97 09/14/19 23:54 46 09/14/19 23:44 44 09/14/19 23:07 45 09/14/19 22:48 97.4 57 20 143/60 (87) 90 09/14/19 22:48 47 09/14/19 22:30 48 09/14/19 22:00 57 09/14/19 22:00 57 09/14/19 22:00 Nasal Cannula 2.0 09/14/19 21:30 60 18 168/76 (106) 99 09/14/19 21:28 99.0 65 17 145/70 100 Nasal Cannula 2.0 09/14/19 19:30 99.0 18 140/66 94 Nasal Cannula 3.0 09/14/19 19:30 72 18 Nasal Cannula 3.0 09/14/19 19:14 99.0 72 18 140/66 (90) 94 Nasal Cannula 3.0 Intake and Output 09/14/19 09/15/19 19:00 07:00 Intake Total 0 ml Balance 0 ml Intake Oral 0 ml Laboratory Tests Test 09/14/19 19:30 09/14/19 20:55 09/14/19 23:45 09/15/19 04:00 White Blood Count 12.1 K/UL (4.8-10.8) H 12.4 K/UL (4.8-10.8) H Red Blood Count 3.19 M/UL (4.70-6.10) L 2.81 M/UL (4.70-6.10) L Hemoglobin 9.5 G/DL (14.2-18.0) L 8.3 G/DL (14.2-18.0) L Hematocrit 30.1 % (42.0-52.0) L 26.7 % (42.0-52.0) L Mean Corpuscular Volume 94 FL (80-99) 95 FL (80-99) Mean Corpuscular Hemoglobin 29.9 PG (27.0-31.0) 29.7 PG (27.0-31.0) Mean Corpuscular Hemoglobin Concent 31.7 G/DL (32.0-36.0) L 31.2 G/DL (32.0-36.0) L Red Cell Distribution Width 15.8 % (11.6-14.8) H 15.9 % (11.6-14.8) H Platelet Count 99 K/UL (150-450) L 89 K/UL (150-450) L Mean Platelet Volume 5.0 FL (6.5-10.1) L 5.0 FL (6.5-10.1) L Neutrophils (%) (Auto) 84.8 % (45.0-75.0) H % (45.0-75.0) Lymphocytes (%) (Auto) 5.8 % (20.0-45.0) L % (20.0-45.0) Monocytes (%) (Auto) 7.1 % (1.0-10.0) % (1.0-10.0) Eosinophils (%) (Auto) 1.9 % (0.0-3.0) % (0.0-3.0) Basophils (%) (Auto) 0.4 % (0.0-2.0) % (0.0-2.0) Sodium Level 137 MMOL/L (136-145) 137 MMOL/L (136-145) Potassium Level 3.9 MMOL/L (3.5-5.1) 3.8 MMOL/L (3.5-5.1) Chloride Level 98 MMOL/L (98-107) 99 MMOL/L (98-107) Carbon Dioxide Level 32 MMOL/L (21-32) 28 MMOL/L (21-32) Anion Gap 7 mmol/L (5-15) 11 mmol/L (5-15) Blood Urea Nitrogen 42 mg/dL (7-18) H 44 mg/dL (7-18) H Creatinine 4.4 MG/DL (0.55-1.30) H 4.7 MG/DL (0.55-1.30) H Estimat Glomerular Filtration Rate 13.7 mL/min (>60) 12.7 mL/min (>60) Glucose Level 151 MG/DL (74-106) H 122 MG/DL (74-106) H Calcium Level 9.4 MG/DL (8.5-10.1) 9.5 MG/DL (8.5-10.1) Total Bilirubin 0.6 MG/DL (0.2-1.0) 0.6 MG/DL (0.2-1.0) Aspartate Amino Transf (AST/SGOT) 70 U/L (15-37) H 61 U/L (15-37) H Alanine Aminotransferase (ALT/SGPT) 85 U/L (12-78) H 87 U/L (12-78) H Alkaline Phosphatase 321 U/L (46-116) H 323 U/L (46-116) H Troponin I 0.132 ng/mL (0.000-0.056) 0.135 ng/mL (0.000-0.056) 0.128 ng/mL (0.000-0.056) Pro-B-Type Natriuretic Peptide > 85079 pg/mL (0-125) H Total Protein 8.2 G/DL (6.4-8.2) 8.2 G/DL (6.4-8.2) Albumin 2.7 G/DL (3.4-5.0) L 2.7 G/DL (3.4-5.0) L Globulin 5.5 g/dL 5.5 g/dL Albumin/Globulin Ratio 0.5 (1.0-2.7) L 0.5 (1.0-2.7) L Lactic Acid Level 0.60 mmol/L (0.4-2.0) Differential Total Cells Counted 100 Neutrophils % (Manual) 83 % (45-75) H Lymphocytes % (Manual) 7 % (20-45) L Monocytes % (Manual) 8 % (1-10) Eosinophils % (Manual) 2 % (0-3) Basophils % (Manual) 0 % (0-2) Band Neutrophils 0 % (0-8) Platelet Estimate Decreased L Platelet Morphology Normal Phosphorus Level 5.3 MG/DL (2.5-4.9) H Magnesium Level 2.0 MG/DL (1.8-2.4) Hepatitis B Surface Antigen Pending Guero Garcia MD Sep 15, 2019 14:00
--- NOTE | 2019-09-15 14:45 | Consultation ---
Consult Note Assessment/Plan Consult dictated # [id number] Justin Hutson MD Sep 15, 2019 14:45
[2019-09-15 16:00] VITALS: BP 141/65
--- NOTE | 2019-09-15 17:00 | History and Physical Report ---
DATE OF ADMISSION: 09/14/2019 CHIEF COMPLAINT: Chest pain. HISTORY OF PRESENT ILLNESS: This is a 63-year-old very unfortunate gentleman with past medical history significant for end-stage renal disease on hemodialysis, hypertension, history of diabetic gastroparesis, diabetic nephropathy, diabetic neuropathy, gastroesophageal reflux disease, hypertension, Mobitz type 1 second-degree AV block, history of cardiomyopathy, and mitral as well as tricuspid regurgitation, who has presented to the hospital from nursing facility after he was noted to have chest pain. The patient started having chest pain in retro-sternum area radiated to the left upper extremity, heaviness in the chest while he was on dialysis. Dialysis was prematurely stopped and terminated and subsequently the patient was discharged back to the nursing facility. Upon arrival to the nursing facility, the patient's symptoms has become progressively worsening and subsequently the patient was advised to be transferred to [facility]. Shortly after initial evaluation in the emergency room, the patient was noted to have mild elevation of troponin. Troponin was noted to be 0.13 and subsequently the patient was admitted to the [facility] for further evaluation and therapy. It was noted the patient has been admitted to [facility] on several past occasions with multiple different reasoning. The patient had an extensive workup done in the past including myocardial SPECT test on July 13, 2019, however, it was incomplete study. Myocardial perfusion scan done at rest only demonstrated no definitive perfusion defect. The patient had an echocardiogram done on July 07, 2019 showed has ejection fraction of 25% with mild left ventricular hypertrophy, mild mitral annular as well as aortic root calcification. Normal pulmonic valve structure. Moderate to severe tricuspid regurgitation. Moderate to severe mitral regurgitation. The patient was noted to have diastolic dysfunction, grade 1. Therefore, the patient was admitted to the hospital with chest pain, possible acute coronary syndrome. PAST MEDICAL HISTORY/PAST SURGICAL HISTORY: As above, history of end-stage renal disease on hemodialysis, history of pulmonary edema as well as pleural effusion, balanitis, anemia of chronic disease, hypertension, diabetes type 2, noncompliance with medical regimen as well as diet. The patient has anasarca, scrotal edema, PermCath placement on the right side of chest wall, Mobitz type 1 second-degree AV block, gastroesophageal reflux disease, history of diabetic gastroparesis, diabetic neuropathy, diabetic nephropathy, and cardiomyopathy with depressed ejection fraction. MEDICATIONS AT HOME: Significant for aspirin, Coreg, clonidine, Benadryl, Colace, Epogen, Lexapro, famotidine, heparin, hydralazine, NovoLog insulin, Zofran, MiraLAX, and vitamin B. ALLERGIES: No known drug allergies. SOCIAL HISTORY: The patient is , residing at a nursing facility. No smoking, alcohol, or drugs at this time. FAMILY HISTORY: Noncontributory. REVIEW OF SYSTEMS: Mostly as above. He complained of chest pain, pedal edema, and scrotal edema. Denies any hemoptysis or hematochezia. Denies any bright red blood per rectum. Denies any loss of consciousness. Denies any fall or head trauma. Denies any suicidal or homicidal ideation. PHYSICAL EXAMINATION: VITAL SIGNS: Upon arrival to the ER, temperature 99, pulse of 72, respirations 18, and blood pressure 140/66. GENERAL: The patient is awake and responsive, in no acute distress. HEAD AND NECK: Pupils are equally reactive to light. Extraocular movements intact. Neck was supple. Positive JVD. LUNGS: Good air entry. No wheezing or rhonchi. Decreased air in the bases. HEART: S1, S2. Distant heart sounds. No murmur or gallop. Chest wall has a PermCath. No sign of infection. ABDOMEN: Soft, nondistended, and nontender. Positive bowel sounds. EXTREMITIES: +3 edema in bilateral lower extremity. No cyanosis or clubbing. PELVIC: Scrotum has edema and penile edema was noted. NEUROLOGIC: Cranial nerves II through XII grossly ____ gait is unsteady due to severe edema. LABORATORY DATA: On admission, sodium 137, potassium 3.9, chloride 98, bicarbonate 32, BUN 42, and creatinine 4.4. GFR is 13. Glucose is 151. Total bilirubin is 0.6. AST of 70, ALT of 85. ProBNP greater than 35,000. Total protein is 8.2. Albumin is 3.5. PT of 11, INR 1.1, and PTT of 34. WBC is 12, hemoglobin 9.5, hematocrit 30, and platelets 99,000. The patient's first troponin is 0.132, second troponin 0.135, third troponin 0.128. EKG was noted to be normal sinus rhythm with ventricular rate of 61, first-degree AV block, and nonspecific T-wave abnormality. No ST elevation was noted. No T-wave inversion. wave was noted in leads I, aVL. Left ventricular hypertrophy. ASSESSMENT: 1. Chest pain, possible acute coronary syndrome. 2. Congestive heart failure with reduced ejection fraction. 3. End-stage renal disease, on hemodialysis, Tuesday, Tuesday, and Tuesday. 4. Diabetes type 2 with diabetic gastroparesis as well as diabetic neuropathy and diabetic nephropathy. 5. Gastroesophageal reflux disease. 6. Hypertension. 7. Mobitz type 1 first-degree AV block. 8. Anasarca. 9. Pedal edema. 10. Severe cardiomyopathy. 11. Systemic hypertension. 12. Dialysis noncompliance. 13. Mitral as well as tricuspid regurgitation. PLAN: Admit the patient to telemetry. We will follow up with Dr. Garcia from Cardiology Electrophysiology consultation; follow up with Dr. Mercer, Pulmonary Critical Care; and Dr. Justin Hutson from Nephrology. Emergent dialysis has been done for removal of fluid. Code status at this time per POLST is DNR. For DVT prophylaxis, heparin subcutaneous. We will resume assisted medication, Accu-Chek, sliding scale. Geovany Roblero M.D. DR: DOMINIC JOB#: [id number] CC:
[2019-09-15] MEDS: HydrALAZINE 25mg tab ORAL SCH (17:48)
--- NOTE | 2019-09-15 18:46 | Consultation ---
DATE OF CONSULTATION: 09/15/2019 NEPHROLOGY CONSULTATION CONSULTING PHYSICIAN: Justin Hutson M.D. REFERRING PHYSICIAN: Geovany Roblero M.D. REASON FOR CONSULTATION: End-stage renal disease, requiring hemodialysis. HISTORY OF PRESENT ILLNESS: This is a 63-year-old male with history of end-stage renal disease, on hemodialysis. The patient's schedule is usually Tuesday, Tuesday, and Tuesday; however, he missed a lot of dialysis days and he ends up with fluid overload and coming to the ER and he was again admitted with shortness of breath and diagnosis of pulmonary edema. PAST MEDICAL HISTORY: Includes history of hypertension and gastroesophageal reflux disease. MEDICATIONS: Reviewed in EMR. SOCIAL HISTORY: No history of smoking or alcohol abuse. The patient lives in a senior living. ALLERGIES: No known drug allergies. REVIEW OF SYSTEMS: Noncontributory. PHYSICAL EXAMINATION: GENERAL: The patient is a 63-year-old male in no acute distress. VITAL SIGNS: Blood pressure 140/63, pulse 60, respirations 20, and temperature 97.1. HEENT: Pale conjunctivae. Anicteric sclerae. NECK: Supple. LUNGS: Coarse breath sounds. HEART: S1 and S2 without murmurs or rubs. CHEST: The patient has a PermCath on the right side. ABDOMEN: Soft and nontender. EXTREMITIES: Bilateral pedal edema. LABORATORY FINDINGS: CBC shows WBC of 12,400; hematocrit 26.7, hemoglobin is 8.3, and platelet 89,000. Chemistry panel shows sodium of 137, potassium 3.8, chloride 99, BUN is 44, creatinine 4.7, and blood sugar is 122. Troponin was negative. Phosphorus 5.3. ASSESSMENT: This is a 63-year-old male with history of end-stage renal disease, on hemodialysis every Tuesday, Tuesday, and Tuesday, who comes in with fluid overload and pulmonary edema. He is noncompliant with outpatient dialysis. He is anemic from his chronic kidney disease. Iron deficiency is a possibility. PLAN: The patient will be dialyzed with good amounts of ultrafiltration. Laboratories will be followed and adjustments will be made in the patient's regimen. Justin Hutson M.D. DR: Anca JOB#: [id number] CC:
--- NOTE | 2019-09-15 19:38 | NUR ---
HAND-OFF: Report given to Sourav Arguello RN. Patient still complaining of chest pain. MD aware. Pt desating to 66% placed back on 2L NC. Now 93%
--- NOTE | 2019-09-15 19:40 | NUR ---
NURSE NOTES: Got report from Earnestine HARDY. Pt in stable condition. Denies any pain. No s/s of distress or discomfort noted. Pt resting in bed comfortably. Bed in low and locked position, call light within reach, bedside table within reach. Continue to monitor.
[2019-09-15 20:00] VITALS: BP 131/63
--- NOTE | 2019-09-15 20:02 | NUR ---
CASE MANAGEMENT: REVIEW 63Y/MALE BIBA FROM [facility] CC: CHEST PAIN 08/02 X2DAYS . NITRO 0.4MG GIVEN IN THE FIELD SI: ESRD ON HD . T 99.0 HR 72 RR 18 BP 145/70 SAT 94% NC/3L WBC 12.1 H/H 9.5/30.1 BUN 44 CR 4.7 TROP 0.132 IS: ASA 325MG PO X1 PATIENT ADMITTED TO TELEMETRY UNIT 09/14/2019 DCP: PATIENT IS FROM [facility]
[2019-09-15] MEDS: Atorvastatin 20mg tab ORAL SCH (21:00)
[2019-09-16] VITALS: BP 134/61
--- NOTE | 2019-09-16 00:15 | Consultation ---
DATE OF CONSULTATION: 09/15/2019 NOTE: "POOR AUDIO QUALITY" CARDIOLOGY CONSULTATION CONSULTING PHYSICIAN: Guero Garcia M.D. REFERRING PHYSICIAN: Geovany Roblero M.D. REASON FOR CONSULTATION: Management of severe cardiomyopathy. HISTORY OF PRESENT ILLNESS: The patient is a very pleasant 63-year-old gentleman with history of hypertension, diabetes, and severe cardiomyopathy with ejection fraction of 15% to 20% based on last echocardiogram as well as end-stage renal disease, on hemodialysis. The patient presented to the emergency room with increasing shortness of breath, lower extremity edema, and severe scrotal edema. The patient is coming from a retirement facility. The patient was complaining also of chest pain, but chest pain was resolved. The patient also had chest pain while on dialysis, the result of which dialysis session. The patient usually dialyzes Tuesday, Tuesday, and Tuesday. The patient was admitted and Cardiology consultation was obtained for further evaluation. The patient's EKG showed sinus rhythm with first-degree AV block with interval of 318 milliseconds with nonspecific T-wave abnormalities. REVIEW OF SYSTEMS: Negative other than what was mentioned in the history of present illness. PAST MEDICAL HISTORY: As mentioned above. FAMILY HISTORY: Noncontributory. SOCIAL HISTORY: He lives in a alf. Does not smoke or drink alcohol. PHYSICAL EXAMINATION: VITAL SIGNS: Blood pressure 140/63, pulse 66, respirations 18, and temperature 97.1. HEAD AND NECK: Shows mild JVD. LUNGS: Decreased breath sounds. CARDIOVASCULAR: Shows regular S1 and S2 with no gallop or murmur. ABDOMEN: Soft. EXTREMITIES: 2+ pitting edema as well as very huge scrotal edema. LABORATORY AND DIAGNOSTIC DATA: His labs show white count of 12.4, hemoglobin 8.2, hematocrit 26.7, and platelet count 89,000. Sodium 137, potassium 3.8, BUN 44, and creatinine 4.7. Troponin 0.13, 0.135, and 0.13. ASSESSMENT AND PLAN: 1. Troponin elevation. Troponin levels are flat, likely due to the patient's renal failure as the patient is on dialysis. Continue medical therapy, aspirin, and Coreg. I will add Lipitor to his medical regimen. 2. Severe cardiomyopathy with EF of 15% to 20%. We will repeat echocardiogram. The patient is already on Coreg, hydralazine, and Isordil. If the ejection fraction remains less than 30%, we will consider defibrillator implantation. 3. Hypertension. Continue current heart failure therapy. 4. End-stage renal disease, on hemodialysis. 5. Diabetes. Thank you very much, Dr. Roblero, for allowing me to participate in the care of this patient. Please do not hesitate to contact me for any questions regarding my evaluation. Guero Garcia M.D. DR: SUKHDEEP JOB#: [id number] CC:
[2019-09-16] MEDS ORDERED: LORazepam Inj 2mg/ml 1ml IV PRN (00:45)
[2019-09-16 04:00] VITALS: BP 132/65
[2019-09-16] MEDS: NovoLOG Insulin Flexpen SUBQ SCH ×4 (06:11→21:00)
--- NOTE | 2019-09-16 07:00 | NUR ---
HAND-OFF: Report given to Earnestine HARDY.
--- NOTE | 2019-09-16 07:35 | NUR ---
NURSE NOTES: Patient received from Sourav Arguello RN. Patient stable sleeping at this time. No s/sx of distress. RR even and unlabored on 2L NC. Call light within reach, bed low and locked, side rails up x2. Will continue to monitor
[2019-09-16 08:00] VITALS: BP 146/74
--- NOTE | 2019-09-16 08:58 | NUR ---
NURSE NOTES: Patient very drowsy and unable to keep eyes open. No verbal response to questions only mumbles. Ativan was given last night. Will hold morning meds until patient is awake and alert.
[2019-09-16] MEDS: Triamcinolone 0.1% oint TOPIC SCH ×3 (09:00→18:23)
[2019-09-16] MEDS: Heparin 5000 units/ml inj SUBQ SCH ×2 (09:00→21:00)
[2019-09-16] MEDS: Aspirin Baby 81mg ORAL SCH (10:05)
[2019-09-16] MEDS: Docusate 100mg cap ORAL SCH ×4 (10:05→21:00)
[2019-09-16] MEDS: Carvedilol 12.5mg tab ORAL SCH ×2 (10:06→21:00)
[2019-09-16] MEDS: Nephrovite tab (Rena-Vite) ORAL SCH (10:06)
[2019-09-16] MEDS: HydrALAZINE 25mg tab ORAL SCH ×2 (10:06→18:23)
[2019-09-16] MEDS: Morphine Sulfate 2mg/ml Inj(IV/IM USE ONLY) IVP PRN (10:34)
[2019-09-16 12:00] VITALS: BP 132/63
--- NOTE | 2019-09-16 13:08 | Cardiac Electrophysiology PN ---
Assessment/Plan Assessment/Plan 1. Troponin elevation. Troponin levels are flat, likely due to the patient's renal failure as the patient is on dialysis. Continue medical therapy, aspirin, and Coreg. I will add Lipitor to his medical regimen. 2. Severe cardiomyopathy with EF of 15% to 20%. Repeat echocardiogram is pending. The patient is already on Coreg, hydralazine,HD and Isordil. If the ejection fraction remains less than 30%, will need defibrillator implantation. 3. Hypertension. Continue current heart failure therapy. 4. End-stage renal disease, on hemodialysis. 5. Diabetes. DW Dr Roblero and RN Subjective Subjective In SR with first degree AVB. Objective Last 24 Hour Vital Signs Date Time Temp Pulse Resp B/P (MAP) Pulse Ox O2 Delivery O2 Flow Rate FiO2 09/16/19 12:00 65 09/16/19 12:00 98.1 66 19 132/63 (86) 94 09/16/19 10:06 146/74 09/16/19 10:06 146/74 09/16/19 10:06 68 146/74 09/16/19 09:00 Nasal Cannula 2.0 09/16/19 08:00 98.1 68 19 146/74 (98) 95 09/16/19 08:00 67 09/16/19 04:00 68 09/16/19 04:00 97.8 80 20 132/65 (87) 99 09/16/19 00:00 76 09/16/19 00:00 98.6 73 20 134/61 (85) 99 09/15/19 22:32 98.0 09/15/19 21:00 Nasal Cannula 2.0 09/15/19 21:00 81 131/63 09/15/19 20:00 98.7 81 20 131/63 (85) 97 09/15/19 17:50 141/65 09/15/19 17:48 141/65 09/15/19 16:00 63 09/15/19 16:00 98.0 64 20 141/65 (90) 96 09/15/19 13:30 140/63 Intake and Output 09/15/19 09/16/19 19:00 07:00 Intake Total 480 ml Output Total 3000 ml Balance -2520 ml Intake Oral 480 ml Output Hemodialysis UF 3000 ml Microbiology Date/Time Source Procedure Growth Status 09/14/19 20:55 Blood Blood Culture - Preliminary NO GROWTH AFTER 24 HOURS Resulted 09/14/19 20:55 Blood Blood Culture - Preliminary NO GROWTH AFTER 24 HOURS Resulted Objective HEAD AND NECK: Mild JVD. LUNGS: Decreased breath sounds. CARDIOVASCULAR: Shows regular S1 and S2 with no gallop or murmur. ABDOMEN: Soft. EXTREMITIES: 2+ pitting edema and very huge scrotal edema. Guero Garcia MD Sep 16, 2019 13:08
--- NOTE | 2019-09-16 13:33 | Internal Med Progress Note ---
Subjective Physician Name Geovany Roblero Attending Physician Geovany Roblero MD Current Medications Medications (Trade) Dose Ordered Sig/Trav Route PRN Reason Start Time Stop Time Status Last Admin Dose Admin Acetaminophen (Tylenol) 500 mg Q6H PRN ORAL Mild Pain (Pain Scale 1-3) 09/15/19 00:15 10/14/19 22:59 Acetaminophen (Tylenol) 650 mg Q4H PRN ORAL Mild Pain (Pain Scale 1-3) 09/14/19 23:00 10/14/19 22:59 09/15/19 06:54 Aspirin (ASA) 81 mg DAILY ORAL 09/15/19 09:00 10/15/19 08:59 09/16/19 10:05 Atorvastatin Calcium (Lipitor) 20 mg BEDTIME ORAL 09/15/19 21:00 10/15/19 20:59 Carvedilol (Coreg) 12.5 mg EVERY 12 HOURS ORAL 09/15/19 09:00 10/15/19 08:59 09/16/19 10:06 Clonidine HCl (Catapres Tab) 0.1 mg EVERY 4 HOURS PRN ORAL For High Blood Pressure 09/15/19 01:00 10/15/19 00:59 Dextrose (Dextrose 50%) 25 ml Q30M PRN IV Hypoglycemia 09/14/19 23:00 10/14/19 22:59 Dextrose (Dextrose 50%) 50 ml Q30M PRN IV Hypoglycemia 09/14/19 23:00 10/14/19 22:59 Diphenhydramine HCl (Benadryl) 25 mg Q6H PRN ORAL Itching/Pruritis 09/14/19 23:00 10/14/19 22:59 Docusate Sodium (Colace) 100 mg BID ORAL 09/15/19 09:00 10/15/19 08:59 09/16/19 10:05 Docusate Sodium (Colace) 100 mg EVERY 12 HOURS ORAL 09/15/19 09:00 10/15/19 08:59 09/16/19 10:06 Famotidine (Pepcid) 20 mg DAILY ORAL 09/15/19 09:00 10/15/19 08:59 09/16/19 10:06 Heparin Sodium (Porcine) (Heparin 5000 units/ml) 5,000 units EVERY 12 HOURS SUBQ 09/15/19 13:45 10/15/19 13:44 Hydralazine HCl (Apresoline) 25 mg BID ORAL 09/15/19 18:00 10/15/19 08:59 09/16/19 10:06 Insulin Aspart (NovoLOG) BEFORE MEALS AND HS SUBQ 09/15/19 06:30 10/15/19 06:29 Isosorbide Dinitrate (Isordil) 10 mg BID ORAL 09/15/19 18:00 10/15/19 17:59 09/16/19 10:06 Lorazepam (Ativan 2mg/ml 1ml) 0.5 mg Q6H PRN IV For Anxiety 09/16/19 00:45 09/23/19 00:44 09/16/19 00:51 Morphine Sulfate (Morphine Sulfate) 1 mg Q4HR PRN IVP For Pain 09/14/19 23:00 09/21/19 22:59 Morphine Sulfate (Morphine Sulfate) 2 mg Q4HR PRN IVP Severe Pain (Pain Scale 7-10) 09/14/19 23:00 09/21/19 22:59 09/16/19 10:34 Nitroglycerin (Ntg) 0.4 mg Q5M PRN SL Prn Chest Pain 09/14/19 23:00 10/14/19 22:59 09/15/19 11:03 Ondansetron HCl (Zofran) 4 mg Q6H PRN ORAL Nausea & Vomiting 09/14/19 23:00 10/14/19 22:59 Pantoprazole (Protonix) 40 mg DAILY ORAL 09/15/19 09:00 10/15/19 08:59 09/16/19 10:06 Polyethylene Glycol (Miralax) 17 gm BEDTIME PRN ORAL Constipation 09/14/19 23:00 10/14/19 22:59 Polyethylene Glycol (Miralax) 17 gm DAILYPRN PRN ORAL Constipation 09/14/19 23:00 10/14/19 22:59 Prochlorperazine (Compazine) 10 mg Q6H PRN IVP Nausea & Vomiting 09/14/19 23:00 10/14/19 22:59 Triamcinolone (Kenalog) 1 applic TID TOPIC 09/15/19 09:00 10/15/19 08:59 09/16/19 12:56 Vitamin B Complex/ Vit C/Folic Acid (Nephrovite) 1 tab DAILY ORAL 09/15/19 09:00 10/15/19 08:59 09/16/19 10:06 Allergies: Coded Allergies: No Known Allergies (Unverified , 07/06/19) Subjective Awake, alert, responsive but sleepy denies any shortness of breath, less chest pain. Objective Last Vital Signs Date Time Temp Pulse Resp B/P (MAP) Pulse Ox O2 Delivery O2 Flow Rate FiO2 09/16/19 12:00 65 09/16/19 12:00 98.1 19 132/63 (86) 94 09/16/19 09:00 Nasal Cannula 2.0 Microbiology Date/Time Source Procedure Growth Status 09/14/19 20:55 Blood Blood Culture - Preliminary NO GROWTH AFTER 24 HOURS Resulted 09/14/19 20:55 Blood Blood Culture - Preliminary NO GROWTH AFTER 24 HOURS Resulted Intake and Output 09/15/19 09/16/19 19:00 07:00 Intake Total 480 ml Output Total 3000 ml Balance -2520 ml Intake Oral 480 ml Output Hemodialysis UF 3000 ml Objective GENERAL: The patient is awake and responsive, in no acute distress. HEAD AND NECK: Pupils are equally reactive to light. Extraocular movements intact. Neck was supple. Positive JVD. LUNGS: Good air entry. No wheezing or rhonchi. Decreased air in the bases. HEART: S1, S2. Distant heart sounds. No murmur or gallop. Chest wall has a PermCath. No sign of infection. ABDOMEN: Soft, nondistended, and nontender. Positive bowel sounds. EXTREMITIES: +3 edema in bilateral lower extremity. No cyanosis or clubbing. PELVIC: Scrotum has edema and penile edema was noted. NEUROLOGIC: Cranial nerves II through XII grossly, unsteady gait. Assessment/Plan Assessment/Plan ASSESSMENT: 1. Chest pain with mild elevated Troponin, possible acute coronary syndrome. 2. Congestive heart failure with reduced ejection fraction. 3. End-stage renal disease, on hemodialysis, Tuesday, Tuesday, and Tuesday. 4. Diabetes type 2 with diabetic gastroparesis as well as diabetic neuropathy and diabetic nephropathy. 5. Gastroesophageal reflux disease. 6. Hypertension. 7. Mobitz type 1 first-degree AV block. 8. Anasarca. 9. Pedal edema. 10. Severe cardiomyopathy. 11. Systemic hypertension. 12. Dialysis noncompliance. 13. Mitral as well as tricuspid regurgitation. PLAN: On telemetry. Dr. Garcia from Cardiology Electrophysiology consultation; Dr. Mercer, Pulmonary Critical Care; Dr. Justin Hutson from Nephrology. Code status at per [facility] is DNR. DVT prophylaxis, heparin subcutaneous. Accu-Chek, sliding scale. Geovany Roblero MD Sep 16, 2019 13:33
--- NOTE | 2019-09-16 14:34 | Nephrology Progress Note ---
Assessment/Plan Problem List: (1) ESRD (end stage renal disease) on dialysis (2) Anemia (3) HTN (hypertension) (4) Diabetes mellitus (5) CHF (congestive heart failure) Plan HD tomorrow follow labs start Epogen daily nephrovite Subjective Subjective feels weak Objective Objective Last 24 Hour Vital Signs Date Time Temp Pulse Resp B/P (MAP) Pulse Ox O2 Delivery O2 Flow Rate FiO2 09/16/19 12:00 65 09/16/19 12:00 98.1 66 19 132/63 (86) 94 09/16/19 10:06 146/74 09/16/19 10:06 146/74 09/16/19 10:06 68 146/74 09/16/19 09:00 Nasal Cannula 2.0 09/16/19 08:00 98.1 68 19 146/74 (98) 95 09/16/19 08:00 67 09/16/19 04:00 68 09/16/19 04:00 97.8 80 20 132/65 (87) 99 09/16/19 00:00 76 09/16/19 00:00 98.6 73 20 134/61 (85) 99 09/15/19 22:32 98.0 09/15/19 21:00 Nasal Cannula 2.0 09/15/19 21:00 81 131/63 09/15/19 20:00 98.7 81 20 131/63 (85) 97 09/15/19 17:50 141/65 09/15/19 17:48 141/65 09/15/19 16:00 63 09/15/19 16:00 98.0 64 20 141/65 (90) 96 Intake and Output 09/15/19 09/16/19 19:00 07:00 Intake Total 480 ml Output Total 3000 ml Balance -2520 ml Intake Oral 480 ml Output Hemodialysis UF 3000 ml Height (Feet): 5 Height (Inches): 8.00 Weight (Pounds): 195 Cardiovascular: normal rate Respiratory/Chest: lungs clear Extremities: moderate edema Justin Hutson MD Sep 16, 2019 14:34
--- NOTE | 2019-09-16 14:55 | NUR ---
NURSE NOTES: [facility] Nephrology called at [phone] to schedule dialysis for tomorrow. Per sales representative, message will be sent to oncall nurse.
--- NOTE | 2019-09-16 15:15 | Pulmonology Progress Note ---
Assessment/Plan Problems: (1) Pleural effusion, right (2) Pulmonary edema (3) CHF (congestive heart failure) (4) Physical debility (5) Anemia (6) ESRD needing dialysis (7) Diabetes mellitus (8) HTN (hypertension) Assessment/Plan respiratory treatment titrate fio2 to sat of 92 HD symptomatic treatment prbc prn check stool for OB Subjective ROS Limited/Unobtainable: No Constitutional: Reports: no symptoms HEENT: Repors: no symptoms Allergies: Coded Allergies: No Known Allergies (Unverified , 07/06/19) Objective Last 24 Hour Vital Signs Date Time Temp Pulse Resp B/P (MAP) Pulse Ox O2 Delivery O2 Flow Rate FiO2 09/16/19 12:00 65 09/16/19 12:00 98.1 66 19 132/63 (86) 94 09/16/19 10:06 146/74 09/16/19 10:06 146/74 09/16/19 10:06 68 146/74 09/16/19 09:00 Nasal Cannula 2.0 09/16/19 08:00 98.1 68 19 146/74 (98) 95 09/16/19 08:00 67 09/16/19 04:00 68 09/16/19 04:00 97.8 80 20 132/65 (87) 99 09/16/19 00:00 76 09/16/19 00:00 98.6 73 20 134/61 (85) 99 09/15/19 22:32 98.0 09/15/19 21:00 Nasal Cannula 2.0 09/15/19 21:00 81 131/63 09/15/19 20:00 98.7 81 20 131/63 (85) 97 09/15/19 17:50 141/65 09/15/19 17:48 141/65 09/15/19 16:00 63 09/15/19 16:00 98.0 64 20 141/65 (90) 96 Intake and Output 09/15/19 09/16/19 19:00 07:00 Intake Total 480 ml Output Total 3000 ml Balance -2520 ml Intake Oral 480 ml Output Hemodialysis UF 3000 ml Objective General Appearance: chronically ill looking, pale HEENT: atraumatic Respiratory/Chest: chest wall non-tender, lungs clear Cardiovascular: normal peripheral pulses, regularly irregular Abdomen: normal bowel sounds, no scars Microbiology Date/Time Source Procedure Growth Status 09/14/19 20:55 Blood Blood Culture - Preliminary NO GROWTH AFTER 24 HOURS Resulted 09/14/19 20:55 Blood Blood Culture - Preliminary NO GROWTH AFTER 24 HOURS Resulted Current Medications Medications (Trade) Dose Ordered Sig/Trav Route PRN Reason Start Time Stop Time Status Last Admin Dose Admin Acetaminophen (Tylenol) 500 mg Q6H PRN ORAL Mild Pain (Pain Scale 1-3) 09/15/19 00:15 10/14/19 22:59 Acetaminophen (Tylenol) 650 mg Q4H PRN ORAL Mild Pain (Pain Scale 1-3) 09/14/19 23:00 10/14/19 22:59 09/15/19 06:54 Aspirin (ASA) 81 mg DAILY ORAL 09/15/19 09:00 10/15/19 08:59 09/16/19 10:05 Atorvastatin Calcium (Lipitor) 20 mg BEDTIME ORAL 09/15/19 21:00 10/15/19 20:59 Carvedilol (Coreg) 12.5 mg EVERY 12 HOURS ORAL 09/15/19 09:00 10/15/19 08:59 09/16/19 10:06 Clonidine HCl (Catapres Tab) 0.1 mg EVERY 4 HOURS PRN ORAL For High Blood Pressure 09/15/19 01:00 10/15/19 00:59 Dextrose (Dextrose 50%) 25 ml Q30M PRN IV Hypoglycemia 09/14/19 23:00 10/14/19 22:59 Dextrose (Dextrose 50%) 50 ml Q30M PRN IV Hypoglycemia 09/14/19 23:00 10/14/19 22:59 Diphenhydramine HCl (Benadryl) 25 mg Q6H PRN ORAL Itching/Pruritis 09/14/19 23:00 10/14/19 22:59 Docusate Sodium (Colace) 100 mg BID ORAL 09/15/19 09:00 10/15/19 08:59 09/16/19 10:05 Docusate Sodium (Colace) 100 mg EVERY 12 HOURS ORAL 09/15/19 09:00 10/15/19 08:59 09/16/19 10:06 Epoetin Garrett (Epoetin Garrett(ESRD on dialysis)) 3,000 unit TUE-TUE-TUE SUBQ 09/17/19 21:00 10/17/19 20:59 Epoetin Garrett (Epoetin Garrett(ESRD on dialysis)) 4,000 unit TUE-TUE-TUE SUBQ 09/17/19 21:00 10/17/19 20:59 Famotidine (Pepcid) 20 mg DAILY ORAL 09/15/19 09:00 10/15/19 08:59 09/16/19 10:06 Heparin Sodium (Porcine) (Heparin 5000 units/ml) 5,000 units EVERY 12 HOURS SUBQ 09/15/19 13:45 10/15/19 13:44 Heparin Sodium (Porcine) (Heparin Sod 1000 units/ml 10ml) 500 unit ONCE PRN IV dialysis 09/17/19 09:00 09/17/19 23:59 Heparin Sodium (Porcine) (Heparin) 1,000 unit POSTHD INJ 09/17/19 14:45 09/17/19 23:59 Hydralazine HCl (Apresoline) 25 mg BID ORAL 09/15/19 18:00 10/15/19 08:59 09/16/19 10:06 Insulin Aspart (NovoLOG) BEFORE MEALS AND HS SUBQ 09/15/19 06:30 10/15/19 06:29 Isosorbide Dinitrate (Isordil) 10 mg BID ORAL 09/15/19 18:00 10/15/19 17:59 09/16/19 10:06 Lorazepam (Ativan 2mg/ml 1ml) 0.5 mg Q6H PRN IV For Anxiety 09/16/19 00:45 09/23/19 00:44 09/16/19 00:51 Morphine Sulfate (Morphine Sulfate) 1 mg Q4HR PRN IVP For Pain 09/14/19 23:00 09/21/19 22:59 Morphine Sulfate (Morphine Sulfate) 2 mg Q4HR PRN IVP Severe Pain (Pain Scale 7-10) 09/14/19 23:00 09/21/19 22:59 09/16/19 10:34 Nitroglycerin (Ntg) 0.4 mg Q5M PRN SL Prn Chest Pain 09/14/19 23:00 10/14/19 22:59 09/15/19 11:03 Ondansetron HCl (Zofran) 4 mg Q6H PRN ORAL Nausea & Vomiting 09/14/19 23:00 10/14/19 22:59 Pantoprazole (Protonix) 40 mg DAILY ORAL 09/15/19 09:00 10/15/19 08:59 09/16/19 10:06 Polyethylene Glycol (Miralax) 17 gm BEDTIME PRN ORAL Constipation 09/14/19 23:00 10/14/19 22:59 Polyethylene Glycol (Miralax) 17 gm DAILYPRN PRN ORAL Constipation 09/14/19 23:00 10/14/19 22:59 Prochlorperazine (Compazine) 10 mg Q6H PRN IVP Nausea & Vomiting 09/14/19 23:00 10/14/19 22:59 Sodium Chloride 1,000 ml @ 500 mls/hr Q2H PRN IVLG sbp<90 during hd 09/17/19 09:00 09/17/19 23:59 Triamcinolone (Kenalog) 1 applic TID TOPIC 09/15/19 09:00 10/15/19 08:59 09/16/19 12:56 Vitamin B Complex/ Vit C/Folic Acid (Nephrovite) 1 tab DAILY ORAL 09/15/19 09:00 10/15/19 08:59 09/16/19 10:06 Christy Mercer MD Sep 16, 2019 15:15
[2019-09-16 16:00] VITALS: BP 126/58
--- NOTE | 2019-09-16 18:00 | NUR ---
NURSE NOTES: BS 79. COMMODITY TRADER feeding patient.
--- NOTE | 2019-09-16 19:39 | NUR ---
HAND-OFF: Report given to Sourav HARDY. Patient stable.
[2019-09-16 20:00] VITALS: BP 109/60
[2019-09-16] MEDS: Atorvastatin 20mg tab ORAL SCH (21:00)
[2019-09-17] VITALS: BP 121/61
[2019-09-17 04:00] VITALS: BP 136/66
[2019-09-17] MEDS: NovoLOG Insulin Flexpen SUBQ SCH ×4 (06:30→21:00)
--- NOTE | 2019-09-17 07:00 | NUR ---
HAND-OFF: Report given to Liz HARDY. Endorsed plan of care.
--- NOTE | 2019-09-17 07:43 | NUR ---
NURSE NOTES: Received patient from Gianna Huff. Patient is awake, lying comfortably in bed. Awake and alert answering questions appropriately. able to move all extremities with generalized weakness. No complain of pain or discomfort at this time. Fall precautions- Bed locked to lowest position, alarm set to zone 1. side rails X3 up. call banks within patients reach. patient is scheduled for HD today. Will follow.
[2019-09-17 08:00] VITALS: BP 124/61
[2019-09-17] MEDS: HydrALAZINE 25mg tab ORAL SCH ×2 (08:52→17:09)
[2019-09-17] MEDS: Carvedilol 12.5mg tab ORAL SCH ×2 (08:53→21:44)
[2019-09-17] MEDS: Nephrovite tab (Rena-Vite) ORAL SCH (08:54)
[2019-09-17] MEDS: Aspirin Baby 81mg ORAL SCH (08:55)
[2019-09-17] MEDS: Triamcinolone 0.1% oint TOPIC SCH ×3 (08:55→17:22)
[2019-09-17] MEDS: Docusate 100mg cap ORAL SCH ×3 (08:55→17:19)
[2019-09-17] MEDS: Heparin 5000 units/ml inj SUBQ SCH ×2 (08:59→21:00)
[2019-09-17] MEDS ORDERED: Heparin Sod 1000 units/ml 10ml IV PRN (09:00)
--- NOTE | 2019-09-17 09:16 | Cardiac Electrophysiology PN ---
Assessment/Plan Assessment/Plan 1. Troponin elevation. Troponin levels are flat, likely due to the patient's renal failure as the patient is on dialysis. Continue medical therapy, aspirin, Coreg and Lipitor to his medical regimen. 2. Severe cardiomyopathy with EF of 15% to 20%. Repeat echocardiogram is pending. Continue Coreg, hydralazine, HD and Isordil. If the ejection fraction remains less than 30%, will need defibrillator implantation. 3. Hypertension. Continue current heart failure therapy. 4. End-stage renal disease, on hemodialysis. 5. Diabetes. DW Dr. Roblero and RN Subjective Subjective In SR with first degree AVB. Objective Last 24 Hour Vital Signs Date Time Temp Pulse Resp B/P (MAP) Pulse Ox O2 Delivery O2 Flow Rate FiO2 09/17/19 08:53 124/61 09/17/19 08:53 65 124/61 09/17/19 08:52 124/61 09/17/19 08:00 97.7 65 20 124/61 (82) 97 09/17/19 04:00 98.1 68 20 136/66 (89) 95 09/17/19 04:00 68 09/17/19 00:00 67 09/17/19 00:00 99.0 70 19 121/61 (81) 96 09/16/19 21:00 65 109/58 09/16/19 21:00 Nasal Cannula 2.0 09/16/19 20:00 98.1 65 18 109/60 (76) 95 09/16/19 20:00 65 09/16/19 18:23 126/58 09/16/19 18:23 126/58 09/16/19 16:00 99.6 64 20 126/58 (80) 97 09/16/19 16:00 64 09/16/19 12:00 65 09/16/19 12:00 98.1 66 19 132/63 (86) 94 09/16/19 10:06 146/74 09/16/19 10:06 146/74 09/16/19 10:06 68 146/74 Intake and Output 09/16/19 09/17/19 19:00 07:00 Intake Total 480 ml 140 ml Balance 480 ml 140 ml Intake Oral 480 ml 140 ml # Voids 2 Microbiology Date/Time Source Procedure Growth Status 09/14/19 20:55 Blood Blood Culture - Preliminary NO GROWTH AFTER 48 HOURS Resulted 09/14/19 20:55 Blood Blood Culture - Preliminary NO GROWTH AFTER 48 HOURS Resulted 09/14/19 22:00 Rectum - Final NO CARBAPENEM-RESISTANT ENTEROBACTERI... Complete 09/14/19 22:00 Rectum VRE Culture - Final NO VANCOMYCIN RESISTANT ENTEROCOCCUS ... Complete Objective HEAD AND NECK: Mild JVD. LUNGS: Decreased breath sounds. CARDIOVASCULAR: Shows regular S1 and S2 with no gallop or murmur. ABDOMEN: Soft. EXTREMITIES: 2+ pitting edema and huge scrotal edema. Guero Garcia MD Sep 17, 2019 09:16
--- NOTE | 2019-09-17 10:21 | Pulmonology Progress Note ---
Assessment/Plan Problems: (1) Pleural effusion, right (2) Pulmonary edema (3) CHF (congestive heart failure) (4) Physical debility (5) Anemia (6) ESRD needing dialysis (7) Diabetes mellitus (8) HTN (hypertension) Assessment/Plan watch effusion, no need for thoracentesis respiratory treatment titrate fio2 to sat of 92 HD symptomatic treatment prbc prn check stool for OB Subjective ROS Limited/Unobtainable: No Constitutional: Reports: no symptoms HEENT: Repors: no symptoms Allergies: Coded Allergies: No Known Allergies (Unverified , 07/06/19) Objective Last 24 Hour Vital Signs Date Time Temp Pulse Resp B/P (MAP) Pulse Ox O2 Delivery O2 Flow Rate FiO2 09/17/19 08:53 124/61 09/17/19 08:53 65 124/61 09/17/19 08:52 124/61 09/17/19 08:00 97.7 65 20 124/61 (82) 97 09/17/19 04:00 98.1 68 20 136/66 (89) 95 09/17/19 04:00 68 09/17/19 00:00 67 09/17/19 00:00 99.0 70 19 121/61 (81) 96 09/16/19 21:00 65 109/58 09/16/19 21:00 Nasal Cannula 2.0 09/16/19 20:00 98.1 65 18 109/60 (76) 95 09/16/19 20:00 65 09/16/19 18:23 126/58 09/16/19 18:23 126/58 09/16/19 16:00 99.6 64 20 126/58 (80) 97 09/16/19 16:00 64 09/16/19 12:00 65 09/16/19 12:00 98.1 66 19 132/63 (86) 94 Intake and Output 09/16/19 09/17/19 18:59 06:59 Intake Total 480 ml Balance 480 ml Intake Oral 480 ml # Voids 2 Objective General Appearance: chronically ill looking, pale HEENT: atraumatic Respiratory/Chest: chest wall non-tender, lungs clear Cardiovascular: normal peripheral pulses, regularly irregular Abdomen: normal bowel sounds, no scars Microbiology Date/Time Source Procedure Growth Status 09/14/19 20:55 Blood Blood Culture - Preliminary NO GROWTH AFTER 48 HOURS Resulted 09/14/19 20:55 Blood Blood Culture - Preliminary NO GROWTH AFTER 48 HOURS Resulted 09/14/19 22:00 Nasal Nares Left MRSA Culture - Final Staphylococcus Aureus - Mrsa Complete 09/14/19 22:00 Rectum - Final NO CARBAPENEM-RESISTANT ENTEROBACTERI... Complete 09/14/19 22:00 Rectum VRE Culture - Final NO VANCOMYCIN RESISTANT ENTEROCOCCUS ... Complete Current Medications Medications (Trade) Dose Ordered Sig/Trav Route PRN Reason Start Time Stop Time Status Last Admin Dose Admin Acetaminophen (Tylenol) 500 mg Q6H PRN ORAL Mild Pain (Pain Scale 1-3) 09/15/19 00:15 10/14/19 22:59 Acetaminophen (Tylenol) 650 mg Q4H PRN ORAL Mild Pain (Pain Scale 1-3) 09/14/19 23:00 10/14/19 22:59 09/15/19 06:54 Aspirin (ASA) 81 mg DAILY ORAL 09/15/19 09:00 10/15/19 08:59 09/17/19 08:55 Atorvastatin Calcium (Lipitor) 20 mg BEDTIME ORAL 09/15/19 21:00 10/15/19 20:59 Carvedilol (Coreg) 12.5 mg EVERY 12 HOURS ORAL 09/15/19 09:00 10/15/19 08:59 09/16/19 10:06 Clonidine HCl (Catapres Tab) 0.1 mg EVERY 4 HOURS PRN ORAL For High Blood Pressure 09/15/19 01:00 10/15/19 00:59 Dextrose (Dextrose 50%) 25 ml Q30M PRN IV Hypoglycemia 09/14/19 23:00 10/14/19 22:59 Dextrose (Dextrose 50%) 50 ml Q30M PRN IV Hypoglycemia 09/14/19 23:00 10/14/19 22:59 Diphenhydramine HCl (Benadryl) 25 mg Q6H PRN ORAL Itching/Pruritis 09/14/19 23:00 10/14/19 22:59 Docusate Sodium (Colace) 100 mg BID ORAL 09/15/19 09:00 10/15/19 08:59 09/17/19 08:55 Docusate Sodium (Colace) 100 mg EVERY 12 HOURS ORAL 09/15/19 09:00 10/15/19 08:59 09/17/19 08:58 Epoetin Garrett (Epoetin Garrett(ESRD on dialysis)) 3,000 unit TUE-TUE-TUE SUBQ 09/17/19 21:00 10/17/19 20:59 Epoetin Garrett (Epoetin Garrett(ESRD on dialysis)) 4,000 unit TUE- SUBQ 09/17/19 21:00 10/17/19 20:59 Famotidine (Pepcid) 20 mg DAILY ORAL 09/15/19 09:00 10/15/19 08:59 09/17/19 08:55 Heparin Sodium (Porcine) (Heparin 5000 units/ml) 5,000 units EVERY 12 HOURS SUBQ 09/15/19 13:45 10/15/19 13:44 Heparin Sodium (Porcine) (Heparin Sod 1000 units/ml 10ml) 500 unit ONCE PRN IV dialysis 09/17/19 09:00 09/17/19 23:59 Heparin Sodium (Porcine) (Heparin) 1,000 unit POSTHD INJ 09/17/19 14:45 09/17/19 23:59 Hydralazine HCl (Apresoline) 25 mg BID ORAL 09/15/19 18:00 10/15/19 08:59 09/16/19 18:23 Insulin Aspart (NovoLOG) BEFORE MEALS AND HS SUBQ 09/15/19 06:30 10/15/19 06:29 Isosorbide Dinitrate (Isordil) 10 mg BID ORAL 09/15/19 18:00 10/15/19 17:59 09/16/19 18:23 Lorazepam (Ativan 2mg/ml 1ml) 0.5 mg Q6H PRN IV For Anxiety 09/16/19 00:45 09/23/19 00:44 09/16/19 00:51 Morphine Sulfate (Morphine Sulfate) 1 mg Q4HR PRN IVP For Pain 09/14/19 23:00 09/21/19 22:59 Morphine Sulfate (Morphine Sulfate) 2 mg Q4HR PRN IVP Severe Pain (Pain Scale 7-10) 09/14/19 23:00 09/21/19 22:59 09/16/19 10:34 Nitroglycerin (Ntg) 0.4 mg Q5M PRN SL Prn Chest Pain 09/14/19 23:00 10/14/19 22:59 09/15/19 11:03 Ondansetron HCl (Zofran) 4 mg Q6H PRN ORAL Nausea & Vomiting 09/14/19 23:00 10/14/19 22:59 Pantoprazole (Protonix) 40 mg DAILY ORAL 09/15/19 09:00 10/15/19 08:59 09/17/19 08:55 Polyethylene Glycol (Miralax) 17 gm BEDTIME PRN ORAL Constipation 09/14/19 23:00 10/14/19 22:59 Polyethylene Glycol (Miralax) 17 gm DAILYPRN PRN ORAL Constipation 09/14/19 23:00 10/14/19 22:59 Prochlorperazine (Compazine) 10 mg Q6H PRN IVP Nausea & Vomiting 09/14/19 23:00 10/14/19 22:59 Sodium Chloride 1,000 ml @ 500 mls/hr Q2H PRN IVLG sbp<90 during hd 09/17/19 09:00 09/17/19 23:59 Triamcinolone (Kenalog) 1 applic TID TOPIC 09/15/19 09:00 10/15/19 08:59 09/17/19 08:55 Vitamin B Complex/ Vit C/Folic Acid (Nephrovite) 1 tab DAILY ORAL 09/15/19 09:00 10/15/19 08:59 09/17/19 08:54 Christy Mercer MD Sep 17, 2019 10:21
[2019-09-17] MEDS: Morphine Sulfate 2mg/ml Inj(IV/IM USE ONLY) IVP PRN (11:15)
--- NOTE | 2019-09-17 11:15 | NUR ---
CASE MANAGEMENT: REVIEW 09/17/19 SI: ESRD ON HD . PULMONARY EDEMA . CHF . R.PLEURAL EFFUSION . DM2 97.7 65 20 124/61 97% NC/2L IS: HEPARIN PO BID EPOETIN SQ QOD COREG PO BID PROTONIX PO QD ASA PO QD NEPHROVITE PO QD : 2E TELE UNIT PLAN: 2D ECHO HD TODAY LABS-PENDING DCP: PATIENT IS FROM [facility]
[2019-09-17 12:00] VITALS: BP 120/72
--- NOTE | 2019-09-17 14:40 | Nephrology Progress Note ---
Assessment/Plan Problem List: (1) ESRD (end stage renal disease) on dialysis (2) Anemia (3) HTN (hypertension) (4) Diabetes mellitus (5) CHF (congestive heart failure) Plan HD today follow labs cont Epogen daily nephrovite Subjective Subjective feels weak Objective Objective Last 24 Hour Vital Signs Date Time Temp Pulse Resp B/P (MAP) Pulse Ox O2 Delivery O2 Flow Rate FiO2 09/17/19 12:00 97.8 75 18 120/72 (88) 98 09/17/19 12:00 66 09/17/19 09:00 Nasal Cannula 2.0 09/17/19 09:00 Nasal Cannula 2.0 09/17/19 08:53 124/61 09/17/19 08:53 65 124/61 09/17/19 08:52 124/61 09/17/19 08:00 65 09/17/19 08:00 97.7 65 20 124/61 (82) 97 09/17/19 04:00 98.1 68 20 136/66 (89) 95 09/17/19 04:00 68 09/17/19 00:00 67 09/17/19 00:00 99.0 70 19 121/61 (81) 96 09/16/19 21:00 65 109/58 09/16/19 21:00 Nasal Cannula 2.0 09/16/19 20:00 98.1 65 18 109/60 (76) 95 09/16/19 20:00 65 09/16/19 18:23 126/58 09/16/19 18:23 126/58 09/16/19 16:00 99.6 64 20 126/58 (80) 97 09/16/19 16:00 64 Intake and Output 09/16/19 09/17/19 18:59 06:59 Intake Total 480 ml Balance 480 ml Intake Oral 480 ml # Voids 2 Height (Feet): 5 Height (Inches): 8.00 Weight (Pounds): 195 Cardiovascular: normal rate Respiratory/Chest: lungs clear Justin Hutson MD Sep 17, 2019 14:40
[2019-09-17] MEDS ORDERED: Heparin 1000 units/ml 1ml Vial INJ SCH (14:45)
[2019-09-17 15:19] LABS: HEMATOCRIT 25.8 % (42.0-52.0); MEAN CORPUSCULAR VOLUME 95 FL (80-99); PLATELET COUNT 96 K/UL (150-450); RED BLOOD COUNT 2.71 M/UL (4.70-6.10); RED CELL DISTRIBUTION WIDTH 15.6 % (11.6-14.8); WHITE BLOOD COUNT 13.1 K/UL (4.8-10.8)
[2019-09-17 15:40] LABS: ANION GAP 12 mmol/L (5-15); BLOOD UREA NITROGEN 65 mg/dL (7-18); CALCIUM 10.1 MG/DL (8.5-10.1); CARBON DIOXIDE 27 MMOL/L (21-32); CHLORIDE 99 MMOL/L (98-107); PHOSPHORUS 6.2 MG/DL (2.5-4.9); POTASSIUM 4.8 MMOL/L (3.5-5.1); SODIUM 138 MMOL/L (136-145)
[2019-09-17 16:00] VITALS: BP 141/76
--- NOTE | 2019-09-17 18:41 | Internal Med Progress Note ---
Subjective Date of Service: Sep 17, 2019 Physician Name Kuldip Crisostomo Attending Physician Geovany Roblero MD Current Medications Medications (Trade) Dose Ordered Sig/Trav Route PRN Reason Start Time Stop Time Status Last Admin Dose Admin Acetaminophen (Tylenol) 500 mg Q6H PRN ORAL Mild Pain (Pain Scale 1-3) 09/15/19 00:15 10/14/19 22:59 Acetaminophen (Tylenol) 650 mg Q4H PRN ORAL Mild Pain (Pain Scale 1-3) 09/14/19 23:00 10/14/19 22:59 09/15/19 06:54 Aspirin (ASA) 81 mg DAILY ORAL 09/15/19 09:00 10/15/19 08:59 09/17/19 08:55 Atorvastatin Calcium (Lipitor) 20 mg BEDTIME ORAL 09/15/19 21:00 10/15/19 20:59 Carvedilol (Coreg) 12.5 mg EVERY 12 HOURS ORAL 09/15/19 09:00 10/15/19 08:59 09/16/19 10:06 Clonidine HCl (Catapres Tab) 0.1 mg EVERY 4 HOURS PRN ORAL For High Blood Pressure 09/15/19 01:00 10/15/19 00:59 Dextrose (Dextrose 50%) 25 ml Q30M PRN IV Hypoglycemia 09/14/19 23:00 10/14/19 22:59 Dextrose (Dextrose 50%) 50 ml Q30M PRN IV Hypoglycemia 09/14/19 23:00 10/14/19 22:59 Diphenhydramine HCl (Benadryl) 25 mg Q6H PRN ORAL Itching/Pruritis 09/14/19 23:00 10/14/19 22:59 Docusate Sodium (Colace) 100 mg BID ORAL 09/15/19 09:00 10/15/19 08:59 09/17/19 17:19 Epoetin Garrett (Epoetin Garrett(ESRD on dialysis)) 3,000 unit -TUE SUBQ 09/17/19 21:00 10/17/19 20:59 Epoetin Garrett (Epoetin Garrett(ESRD on dialysis)) 4,000 unit TUE-TUE-TUE SUBQ 09/17/19 21:00 10/17/19 20:59 Famotidine (Pepcid) 20 mg DAILY ORAL 09/15/19 09:00 10/15/19 08:59 09/17/19 08:55 Heparin Sodium (Porcine) (Heparin 5000 units/ml) 5,000 units EVERY 12 HOURS SUBQ 09/15/19 13:45 10/15/19 13:44 Heparin Sodium (Porcine) (Heparin Sod 1000 units/ml 10ml) 500 unit ONCE PRN IV dialysis 09/17/19 09:00 09/17/19 23:59 Heparin Sodium (Porcine) (Heparin) 1,000 unit POSTHD INJ 09/17/19 14:45 09/17/19 23:59 Hydralazine HCl (Apresoline) 25 mg BID ORAL 09/15/19 18:00 10/15/19 08:59 09/16/19 18:23 Insulin Aspart (NovoLOG) BEFORE MEALS AND HS SUBQ 09/15/19 06:30 10/15/19 06:29 Isosorbide Dinitrate (Isordil) 10 mg BID ORAL 09/15/19 18:00 10/15/19 17:59 09/16/19 18:23 Lorazepam (Ativan 2mg/ml 1ml) 0.5 mg Q6H PRN IV For Anxiety 09/16/19 00:45 09/23/19 00:44 09/16/19 00:51 Morphine Sulfate (Morphine Sulfate) 1 mg Q4HR PRN IVP For Pain 09/14/19 23:00 09/21/19 22:59 Morphine Sulfate (Morphine Sulfate) 2 mg Q4HR PRN IVP Severe Pain (Pain Scale 7-10) 09/14/19 23:00 09/21/19 22:59 09/17/19 11:15 Nitroglycerin (Ntg) 0.4 mg Q5M PRN SL Prn Chest Pain 09/14/19 23:00 10/14/19 22:59 09/15/19 11:03 Ondansetron HCl (Zofran) 4 mg Q6H PRN ORAL Nausea & Vomiting 09/14/19 23:00 10/14/19 22:59 Pantoprazole (Protonix) 40 mg DAILY ORAL 09/15/19 09:00 10/15/19 08:59 09/17/19 08:55 Polyethylene Glycol (Miralax) 17 gm BEDTIME PRN ORAL Constipation 09/14/19 23:00 10/14/19 22:59 Polyethylene Glycol (Miralax) 17 gm DAILYPRN PRN ORAL Constipation 09/14/19 23:00 10/14/19 22:59 Prochlorperazine (Compazine) 10 mg Q6H PRN IVP Nausea & Vomiting 09/14/19 23:00 10/14/19 22:59 Sodium Chloride 1,000 ml @ 500 mls/hr Q2H PRN IVLG sbp<90 during hd 09/17/19 09:00 09/17/19 23:59 Triamcinolone (Kenalog) 1 applic TID TOPIC 09/15/19 09:00 10/15/19 08:59 09/17/19 17:22 Vitamin B Complex/ Vit C/Folic Acid (Nephrovite) 1 tab DAILY ORAL 09/15/19 09:00 10/15/19 08:59 09/17/19 08:54 Allergies: Coded Allergies: No Known Allergies (Unverified , 07/06/19) ROS Limited/Unobtainable: Yes Subjective 63 YO M admitted with chest pain. Cover for Int Med-dr Roblero Objective Last Vital Signs Date Time Temp Pulse Resp B/P (MAP) Pulse Ox O2 Delivery O2 Flow Rate FiO2 09/17/19 17:10 141/76 09/17/19 16:00 67 09/17/19 16:00 96.7 19 100 09/17/19 09:00 Nasal Cannula 2.0 Laboratory Tests Test 09/17/19 14:20 White Blood Count 13.1 K/UL (4.8-10.8) H Red Blood Count 2.71 M/UL (4.70-6.10) L Hemoglobin 8.0 G/DL (14.2-18.0) L Hematocrit 25.8 % (42.0-52.0) L Mean Corpuscular Volume 95 FL (80-99) Mean Corpuscular Hemoglobin 29.6 PG (27.0-31.0) Mean Corpuscular Hemoglobin Concent 31.2 G/DL (32.0-36.0) L Red Cell Distribution Width 15.6 % (11.6-14.8) H Platelet Count 96 K/UL (150-450) L Mean Platelet Volume 5.1 FL (6.5-10.1) L Neutrophils (%) (Auto) % (45.0-75.0) Lymphocytes (%) (Auto) % (20.0-45.0) Monocytes (%) (Auto) % (1.0-10.0) Eosinophils (%) (Auto) % (0.0-3.0) Basophils (%) (Auto) % (0.0-2.0) Differential Total Cells Counted 100 Neutrophils % (Manual) 92 % (45-75) H Lymphocytes % (Manual) 6 % (20-45) L Monocytes % (Manual) 1 % (1-10) Eosinophils % (Manual) 0 % (0-3) Basophils % (Manual) 1 % (0-2) Band Neutrophils 0 % (0-8) Platelet Estimate Decreased L Platelet Morphology Normal Hypochromasia 1+ Anisocytosis 1+ Sodium Level 138 MMOL/L (136-145) Potassium Level 4.8 MMOL/L (3.5-5.1) Chloride Level 99 MMOL/L (98-107) Carbon Dioxide Level 27 MMOL/L (21-32) Anion Gap 12 mmol/L (5-15) Blood Urea Nitrogen 65 mg/dL (7-18) H Creatinine 6.0 MG/DL (0.55-1.30) H Estimat Glomerular Filtration Rate 9.6 mL/min (>60) Glucose Level 108 MG/DL (74-106) H Calcium Level 10.1 MG/DL (8.5-10.1) Phosphorus Level 6.2 MG/DL (2.5-4.9) H Microbiology Date/Time Source Procedure Growth Status 09/14/19 20:55 Blood Blood Culture - Preliminary NO GROWTH AFTER 48 HOURS Resulted 09/14/19 20:55 Blood Blood Culture - Preliminary NO GROWTH AFTER 48 HOURS Resulted 09/14/19 22:00 Nasal Nares Left MRSA Culture - Final Staphylococcus Aureus - Mrsa Complete 09/14/19 22:00 Rectum - Final NO CARBAPENEM-RESISTANT ENTEROBACTERI... Complete 09/14/19 22:00 Rectum VRE Culture - Final NO VANCOMYCIN RESISTANT ENTEROCOCCUS ... Complete Intake and Output 09/16/19 09/17/19 19:00 07:00 Intake Total 480 ml 140 ml Balance 480 ml 140 ml Intake Oral 480 ml 140 ml # Voids 2 Objective Objective GENERAL: The patient is awake and responsive, in no acute distress. HEAD AND NECK: Pupils are equally reactive to light. Extraocular movements intact. Neck was supple. Positive JVD. LUNGS: Good air entry. No wheezing or rhonchi. Decreased air in the bases. HEART: S1, S2. Distant heart sounds. No murmur or gallop. Chest wall has a PermCath. No sign of infection. ABDOMEN: Soft, nondistended, and nontender. Positive bowel sounds. EXTREMITIES: +3 edema in bilateral lower extremity. No cyanosis or clubbing. PELVIC: Scrotum has edema and penile edema was noted. NEUROLOGIC: Cranial nerves II through XII grossly, unsteady gait. Assessment/Plan Assessment/Plan Assessment/Plan Assessment/Plan ASSESSMENT: 1. Chest pain with mild elevated Troponin, possible acute coronary syndrome. 2. Congestive heart failure with reduced ejection fraction. 3. End-stage renal disease, on hemodialysis, Tuesday, Tuesday, and Tuesday. 4. Diabetes type 2 with diabetic gastroparesis as well as diabetic neuropathy and diabetic nephropathy. 5. Gastroesophageal reflux disease. 6. Hypertension. 7. Mobitz type 1 first-degree AV block. 8. Anasarca. 9. Pedal edema. 10. Severe cardiomyopathy. 11. Systemic hypertension. 12. Dialysis noncompliance. 13. Mitral as well as tricuspid regurgitation. PLAN: On telemetry. Dr. Garcia from Cardiology Electrophysiology consultation; Dr. Mercer, Pulmonary Critical Care; Dr. Justin Hutson from Nephrology. Code status at per POLST is DNR. DVT prophylaxis, heparin subcutaneous. Accu-Chek, sliding scale. Kuldip Crisostomo MD Sep 17, 2019 18:41
[2019-09-17] MEDS ORDERED: TRIAMCINOLONE A15 G2 TP (18:51)
[2019-09-17] MEDS ORDERED: ACETAMINOPHEN325 M1 ORAL (18:56)
[2019-09-17] MEDS ORDERED: XYLOCAINE35.44 GM TP (19:00)
[2019-09-17] MEDS ORDERED: TERBINAFINE HCL30 GM TP (19:00)
[2019-09-17] MEDS ORDERED: ACETAMINOPHEN500 M3 ORAL (19:00)
--- NOTE | 2019-09-17 19:29 | NUR ---
HAND-OFF: Report given to Gianna Morales. Patient currently having HD treatment. Plan of care endorsed.
--- NOTE | 2019-09-17 19:35 | NUR ---
NURSE NOTES: Received report from Joana Wall RN. Patient in bed AAO X2-3 with no complaints of acute pain or discomfort noted at this time. Kept clean, dry, and comfortable in bed. IV line and Permacath for HD use intact and patent; placed on continuous cardiac monitoring per protocol. No S/S of resp distress or SOB noted on RA and tolerated well. Safety precaution in place; siderails X3 up, call light within reach, bed in lowest position, brakes and alarm on at all times. Needs and wants anticipated and attended. Will continue plan of care and monitor for any changes noted. 2D echo scheduled tomorrow 09/18/19 HD done today, 2L out.
[2019-09-17 20:00] VITALS: BP 158/73
[2019-09-17] MEDS: Epoetin Alfa-EPBX(ESRD on dialysis)3000 units/ml vial SUBQ SCH (21:44)
[2019-09-17] MEDS: Atorvastatin 20mg tab ORAL SCH (21:44)
[2019-09-17] MEDS: Epoetin Alfa-EPBX(ESRD on dialysis)4000 units/ml vial SUBQ SCH (21:44)
[2019-09-18] VITALS: BP 147/63
[2019-09-18 04:00] VITALS: BP 131/65
[2019-09-18] MEDS: NovoLOG Insulin Flexpen SUBQ SCH ×4 (06:11→21:11)
[2019-09-18 06:34] LABS: HEMOGLOBIN 8.1 G/DL (14.2-18.0); MEAN CORPUSCULAR VOLUME 95 FL (80-99); PLATELET COUNT 108 K/UL (150-450); RED BLOOD COUNT 2.73 M/UL (4.70-6.10); RED CELL DISTRIBUTION WIDTH 15.9 % (11.6-14.8); WHITE BLOOD COUNT 12.1 K/UL (4.8-10.8)
[2019-09-18 06:58] LABS: ANION GAP 13 mmol/L (5-15); BLOOD UREA NITROGEN 52 mg/dL (7-18); CALCIUM 10.1 MG/DL (8.5-10.1); CARBON DIOXIDE 26 MMOL/L (21-32); CHLORIDE 99 MMOL/L (98-107); CREATININE 5.1 MG/DL (0.55-1.30); POTASSIUM 4.3 MMOL/L (3.5-5.1); SODIUM 138 MMOL/L (136-145)
--- NOTE | 2019-09-18 07:10 | NUR ---
HAND-OFF: Report given to Joana Wall RN. Endorsed plan of care, patient in stable condition.
--- NOTE | 2019-09-18 07:12 | NUR ---
NURSE NOTES: Received patient from Gianna Morales. Patient is awake and alert lying comfortably in bed. No complain of pain or discomfort at this time. Patient is Addendum: 09/18/19 at 0717 by Liz Wall RN on cont cardiac monitoring. Fall precautions in place. Call banks within patients reached. will continue to monitor.
[2019-09-18 08:00] VITALS: BP 156/75
[2019-09-18] MEDS: Aspirin Baby 81mg ORAL SCH (08:52)
[2019-09-18] MEDS: Carvedilol 12.5mg tab ORAL SCH ×2 (08:52→20:53)
[2019-09-18] MEDS: Nephrovite tab (Rena-Vite) ORAL SCH (08:52)
[2019-09-18] MEDS: HydrALAZINE 25mg tab ORAL SCH ×2 (08:52→17:06)
[2019-09-18] MEDS: Docusate 100mg cap ORAL SCH ×2 (08:52→17:07)
[2019-09-18] MEDS: Triamcinolone 0.1% oint TOPIC SCH ×3 (08:53→17:07)
[2019-09-18] MEDS: Heparin 5000 units/ml inj SUBQ SCH ×2 (09:00→21:00)
--- NOTE | 2019-09-18 10:52 | Cardiac Electrophysiology PN ---
Assessment/Plan Assessment/Plan 1. Troponin elevation. Troponin levels are flat, likely due to renal failure as the patient is on dialysis. Continue aspirin, Coreg and Lipitor 2. Severe cardiomyopathy with EF of 15% to 20%. Repeat echocardiogram still pending as refused yesterday and reordered. Continue Coreg, hydralazine, HD and Isordil. If the ejection fraction remains less than 30%, will need defibrillator implantation. 3. Hypertension. Continue current heart failure therapy. 4. End-stage renal disease, on hemodialysis. 5. Diabetes. AFSHAN RN Subjective Subjective In SR with first degree AVB.No CP or SOB. RN at bedside Objective Last 24 Hour Vital Signs Date Time Temp Pulse Resp B/P (MAP) Pulse Ox O2 Delivery O2 Flow Rate FiO2 09/18/19 08:52 156/75 09/18/19 08:52 156/75 09/18/19 08:52 80 156/75 09/18/19 08:00 99.3 80 20 156/75 (102) 92 09/18/19 04:00 98.4 75 18 131/65 (87) 95 09/18/19 04:00 72 09/18/19 00:00 98.1 76 20 147/63 (91) 98 09/18/19 00:00 74 09/17/19 21:44 77 158/73 09/17/19 21:00 Nasal Cannula 2.0 09/17/19 20:00 74 09/17/19 20:00 99.1 77 20 158/73 (101) 98 09/17/19 17:10 141/76 09/17/19 17:09 141/76 09/17/19 16:00 67 09/17/19 16:00 96.7 62 19 141/76 (97) 100 09/17/19 12:00 97.8 75 18 120/72 (88) 98 09/17/19 12:00 66 Intake and Output 09/17/19 09/18/19 19:00 07:00 Intake Total 260 ml Output Total 400 ml Balance -140 ml Intake Oral 260 ml Output Urine Total 400 ml # Voids 3 1 Laboratory Tests Test 09/17/19 14:20 09/18/19 05:40 White Blood Count 13.1 K/UL (4.8-10.8) H 12.1 K/UL (4.8-10.8) H Red Blood Count 2.71 M/UL (4.70-6.10) L 2.73 M/UL (4.70-6.10) L Hemoglobin 8.0 G/DL (14.2-18.0) L 8.1 G/DL (14.2-18.0) L Hematocrit 25.8 % (42.0-52.0) L 26.0 % (42.0-52.0) L Mean Corpuscular Volume 95 FL (80-99) 95 FL (80-99) Mean Corpuscular Hemoglobin 29.6 PG (27.0-31.0) 29.7 PG (27.0-31.0) Mean Corpuscular Hemoglobin Concent 31.2 G/DL (32.0-36.0) L 31.2 G/DL (32.0-36.0) L Red Cell Distribution Width 15.6 % (11.6-14.8) H 15.9 % (11.6-14.8) H Platelet Count 96 K/UL (150-450) L 108 K/UL (150-450) L Mean Platelet Volume 5.1 FL (6.5-10.1) L 5.4 FL (6.5-10.1) L Neutrophils (%) (Auto) % (45.0-75.0) % (45.0-75.0) Lymphocytes (%) (Auto) % (20.0-45.0) % (20.0-45.0) Monocytes (%) (Auto) % (1.0-10.0) % (1.0-10.0) Eosinophils (%) (Auto) % (0.0-3.0) % (0.0-3.0) Basophils (%) (Auto) % (0.0-2.0) % (0.0-2.0) Differential Total Cells Counted 100 100 Neutrophils % (Manual) 92 % (45-75) H 91 % (45-75) H Lymphocytes % (Manual) 6 % (20-45) L 1 % (20-45) L Monocytes % (Manual) 1 % (1-10) 8 % (1-10) Eosinophils % (Manual) 0 % (0-3) 0 % (0-3) Basophils % (Manual) 1 % (0-2) 0 % (0-2) Band Neutrophils 0 % (0-8) 0 % (0-8) Platelet Estimate Decreased L Decreased L Platelet Morphology Normal Normal Hypochromasia 1+ Anisocytosis 1+ 1+ Sodium Level 138 MMOL/L (136-145) 138 MMOL/L (136-145) Potassium Level 4.8 MMOL/L (3.5-5.1) 4.3 MMOL/L (3.5-5.1) Chloride Level 99 MMOL/L (98-107) 99 MMOL/L (98-107) Carbon Dioxide Level 27 MMOL/L (21-32) 26 MMOL/L (21-32) Anion Gap 12 mmol/L (5-15) 13 mmol/L (5-15) Blood Urea Nitrogen 65 mg/dL (7-18) H 52 mg/dL (7-18) H Creatinine 6.0 MG/DL (0.55-1.30) H 5.1 MG/DL (0.55-1.30) H Estimat Glomerular Filtration Rate 9.6 mL/min (>60) 11.6 mL/min (>60) Glucose Level 108 MG/DL (74-106) H 86 MG/DL (74-106) Calcium Level 10.1 MG/DL (8.5-10.1) 10.1 MG/DL (8.5-10.1) Phosphorus Level 6.2 MG/DL (2.5-4.9) H Objective HEAD AND NECK: Mild JVD. LUNGS: Decreased breath sounds. CARDIOVASCULAR: Shows regular S1 and S2 with no gallop or murmur. ABDOMEN: Soft. EXTREMITIES: 2+ pitting edema and huge scrotal edema. Guero Garcia MD Sep 18, 2019 10:52
--- NOTE | 2019-09-18 11:28 | Pulmonology Progress Note ---
Assessment/Plan Problems: (1) Pleural effusion, right (2) Pulmonary edema (3) CHF (congestive heart failure) (4) Physical debility (5) Anemia (6) ESRD needing dialysis (7) Diabetes mellitus (8) HTN (hypertension) Assessment/Plan watch effusion, no need for thoracentesis incentive spirometry persistent leukocytosis, ID evaluation requested respiratory treatment titrate fio2 to sat of 92 HD symptomatic treatment prbc prn check stool for OB Subjective ROS Limited/Unobtainable: No Constitutional: Reports: no symptoms HEENT: Repors: no symptoms Respiratory: Reports: no symptoms Cardiovascular: Reports: no symptoms Allergies: Coded Allergies: No Known Allergies (Unverified , 07/06/19) Objective Last 24 Hour Vital Signs Date Time Temp Pulse Resp B/P (MAP) Pulse Ox O2 Delivery O2 Flow Rate FiO2 09/18/19 08:52 156/75 09/18/19 08:52 156/75 09/18/19 08:52 80 156/75 09/18/19 08:00 99.3 80 20 156/75 (102) 92 09/18/19 04:00 98.4 75 18 131/65 (87) 95 09/18/19 04:00 72 09/18/19 00:00 98.1 76 20 147/63 (91) 98 09/18/19 00:00 74 09/17/19 21:44 77 158/73 09/17/19 21:00 Nasal Cannula 2.0 09/17/19 20:00 74 09/17/19 20:00 99.1 77 20 158/73 (101) 98 09/17/19 17:10 141/76 09/17/19 17:09 141/76 09/17/19 16:00 67 09/17/19 16:00 96.7 62 19 141/76 (97) 100 09/17/19 12:00 97.8 75 18 120/72 (88) 98 09/17/19 12:00 66 Intake and Output 09/17/19 09/18/19 19:00 07:00 Intake Total 260 ml Output Total 400 ml Balance -140 ml Intake Oral 260 ml Output Urine Total 400 ml # Voids 3 1 Objective General Appearance: chronically ill looking, pale HEENT: atraumatic Respiratory/Chest: chest wall non-tender, lungs clear Cardiovascular: normal peripheral pulses, regularly irregular Abdomen: normal bowel sounds, no scars Laboratory Tests 09/17/19 14:20: White Blood Count 13.1H, Red Blood Count 2.71L, Hemoglobin 8.0L, Hematocrit 25.8L, Mean Corpuscular Volume 95, Mean Corpuscular Hemoglobin 29.6, Mean Corpuscular Hemoglobin Concent 31.2L, Red Cell Distribution Width 15.6H, Platelet Count 96L, Mean Platelet Volume 5.1L, Neutrophils (%) (Auto) , Lymphocytes (%) (Auto) , Monocytes (%) (Auto) , Eosinophils (%) (Auto) , Basophils (%) (Auto) , Differential Total Cells Counted 100, Neutrophils % ( Manual) 92H, Lymphocytes % (Manual) 6L, Monocytes % (Manual) 1, Eosinophils % ( Manual) 0, Basophils % (Manual) 1, Band Neutrophils 0, Platelet Estimate DecreasedL, Platelet Morphology Normal, Hypochromasia 1+, Anisocytosis 1+, Sodium Level 138, Potassium Level 4.8, Chloride Level 99, Carbon Dioxide Level 27, Anion Gap 12, Blood Urea Nitrogen 65H, Creatinine 6.0H, Estimat Glomerular Filtration Rate 9.6, Glucose Level 108H, Calcium Level 10.1, Phosphorus Level 6.2H 09/18/19 05:40: White Blood Count 12.1H, Red Blood Count 2.73L, Hemoglobin 8.1L, Hematocrit 26.0L, Mean Corpuscular Volume 95, Mean Corpuscular Hemoglobin 29.7, Mean Corpuscular Hemoglobin Concent 31.2L, Red Cell Distribution Width 15.9H, Platelet Count 108L, Mean Platelet Volume 5.4L, Neutrophils (%) (Auto) , Lymphocytes (%) (Auto) , Monocytes (%) (Auto) , Eosinophils (%) (Auto) , Basophils (%) (Auto) , Differential Total Cells Counted 100, Neutrophils % ( Manual) 91H, Lymphocytes % (Manual) 1L, Monocytes % (Manual) 8, Eosinophils % ( Manual) 0, Basophils % (Manual) 0, Band Neutrophils 0, Platelet Estimate DecreasedL, Platelet Morphology Normal, Anisocytosis 1+, Sodium Level 138, Potassium Level 4.3, Chloride Level 99, Carbon Dioxide Level 26, Anion Gap 13, Blood Urea Nitrogen 52H, Creatinine 5.1H, Estimat Glomerular Filtration Rate 11.6, Glucose Level 86, Calcium Level 10.1 Current Medications Medications (Trade) Dose Ordered Sig/Trav Route PRN Reason Start Time Stop Time Status Last Admin Dose Admin Acetaminophen (Tylenol) 500 mg Q6H PRN ORAL Mild Pain (Pain Scale 1-3) 09/15/19 00:15 10/14/19 22:59 Acetaminophen (Tylenol) 650 mg Q4H PRN ORAL Mild Pain (Pain Scale 1-3) 09/14/19 23:00 10/14/19 22:59 09/15/19 06:54 Aspirin (ASA) 81 mg DAILY ORAL 09/15/19 09:00 10/15/19 08:59 09/18/19 08:52 Atorvastatin Calcium (Lipitor) 20 mg BEDTIME ORAL 09/15/19 21:00 10/15/19 20:59 09/17/19 21:44 Carvedilol (Coreg) 12.5 mg EVERY 12 HOURS ORAL 09/15/19 09:00 10/15/19 08:59 09/18/19 08:52 Clonidine HCl (Catapres Tab) 0.1 mg EVERY 4 HOURS PRN ORAL For High Blood Pressure 09/15/19 01:00 10/15/19 00:59 Dextrose (Dextrose 50%) 25 ml Q30M PRN IV Hypoglycemia 09/14/19 23:00 10/14/19 22:59 Dextrose (Dextrose 50%) 50 ml Q30M PRN IV Hypoglycemia 09/14/19 23:00 10/14/19 22:59 Diphenhydramine HCl (Benadryl) 25 mg Q6H PRN ORAL Itching/Pruritis 09/14/19 23:00 10/14/19 22:59 Docusate Sodium (Colace) 100 mg BID ORAL 09/15/19 09:00 10/15/19 08:59 09/18/19 08:52 Epoetin Garrett (Epoetin Garrett(ESRD on dialysis)) 3,000 unit SUBQ 09/17/19 21:00 10/17/19 20:59 09/17/19 21:44 Epoetin Garrett (Epoetin Garrett(ESRD on dialysis)) 4,000 unit SUBQ 09/17/19 21:00 10/17/19 20:59 09/17/19 21:44 Famotidine (Pepcid) 20 mg DAILY ORAL 09/15/19 09:00 10/15/19 08:59 09/18/19 08:52 Heparin Sodium (Porcine) (Heparin 5000 units/ml) 5,000 units EVERY 12 HOURS SUBQ 09/15/19 13:45 10/15/19 13:44 Hydralazine HCl (Apresoline) 25 mg BID ORAL 09/15/19 18:00 10/15/19 08:59 09/18/19 08:52 Insulin Aspart (NovoLOG) BEFORE MEALS AND HS SUBQ 09/15/19 06:30 10/15/19 06:29 Isosorbide Dinitrate (Isordil) 10 mg BID ORAL 09/15/19 18:00 10/15/19 17:59 09/18/19 08:52 Lorazepam (Ativan 2mg/ml 1ml) 0.5 mg Q6H PRN IV For Anxiety 09/16/19 00:45 09/23/19 00:44 09/16/19 00:51 Morphine Sulfate (Morphine Sulfate) 1 mg Q4HR PRN IVP For Pain 09/14/19 23:00 09/21/19 22:59 Morphine Sulfate (Morphine Sulfate) 2 mg Q4HR PRN IVP Severe Pain (Pain Scale 7-10) 09/14/19 23:00 09/21/19 22:59 09/17/19 11:15 Nitroglycerin (Ntg) 0.4 mg Q5M PRN SL Prn Chest Pain 09/14/19 23:00 10/14/19 22:59 09/15/19 11:03 Ondansetron HCl (Zofran) 4 mg Q6H PRN ORAL Nausea & Vomiting 09/14/19 23:00 10/14/19 22:59 Pantoprazole (Protonix) 40 mg DAILY ORAL 09/15/19 09:00 10/15/19 08:59 09/18/19 08:52 Polyethylene Glycol (Miralax) 17 gm BEDTIME PRN ORAL Constipation 09/14/19 23:00 10/14/19 22:59 Polyethylene Glycol (Miralax) 17 gm DAILYPRN PRN ORAL Constipation 09/14/19 23:00 10/14/19 22:59 Prochlorperazine (Compazine) 10 mg Q6H PRN IVP Nausea & Vomiting 09/14/19 23:00 10/14/19 22:59 Triamcinolone (Kenalog) 1 applic TID TOPIC 09/15/19 09:00 10/15/19 08:59 09/18/19 08:53 Vitamin B Complex/ Vit C/Folic Acid (Nephrovite) 1 tab DAILY ORAL 09/15/19 09:00 10/15/19 08:59 09/18/19 08:52 Christy Mercer MD Sep 18, 2019 11:28
--- NOTE | 2019-09-18 11:59 | Nephrology Progress Note ---
Assessment/Plan Problem List: (1) ESRD (end stage renal disease) on dialysis (2) Anemia (3) HTN (hypertension) (4) Diabetes mellitus (5) CHF (congestive heart failure) Plan HD tomorrow follow labs cont Epogen daily nephrovite Subjective Subjective all noted Objective Objective Last 24 Hour Vital Signs Date Time Temp Pulse Resp B/P (MAP) Pulse Ox O2 Delivery O2 Flow Rate FiO2 09/18/19 09:00 79 09/18/19 09:00 Nasal Cannula 2.0 09/18/19 08:52 156/75 09/18/19 08:52 156/75 09/18/19 08:52 80 156/75 09/18/19 08:00 99.3 80 20 156/75 (102) 92 09/18/19 04:00 98.4 75 18 131/65 (87) 95 09/18/19 04:00 72 09/18/19 00:00 98.1 76 20 147/63 (91) 98 09/18/19 00:00 74 09/17/19 21:44 77 158/73 09/17/19 21:00 Nasal Cannula 2.0 09/17/19 20:00 74 09/17/19 20:00 99.1 77 20 158/73 (101) 98 09/17/19 17:10 141/76 09/17/19 17:09 141/76 09/17/19 16:00 67 09/17/19 16:00 96.7 62 19 141/76 (97) 100 09/17/19 12:00 97.8 75 18 120/72 (88) 98 09/17/19 12:00 66 Intake and Output 09/17/19 09/18/19 19:00 07:00 Intake Total 260 ml Output Total 400 ml Balance -140 ml Intake Oral 260 ml Output Urine Total 400 ml # Voids 3 1 Laboratory Tests 09/17/19 14:20: White Blood Count 13.1H, Red Blood Count 2.71L, Hemoglobin 8.0L, Hematocrit 25.8L, Mean Corpuscular Volume 95, Mean Corpuscular Hemoglobin 29.6, Mean Corpuscular Hemoglobin Concent 31.2L, Red Cell Distribution Width 15.6H, Platelet Count 96L, Mean Platelet Volume 5.1L, Neutrophils (%) (Auto) , Lymphocytes (%) (Auto) , Monocytes (%) (Auto) , Eosinophils (%) (Auto) , Basophils (%) (Auto) , Differential Total Cells Counted 100, Neutrophils % ( Manual) 92H, Lymphocytes % (Manual) 6L, Monocytes % (Manual) 1, Eosinophils % ( Manual) 0, Basophils % (Manual) 1, Band Neutrophils 0, Platelet Estimate DecreasedL, Platelet Morphology Normal, Hypochromasia 1+, Anisocytosis 1+, Sodium Level 138, Potassium Level 4.8, Chloride Level 99, Carbon Dioxide Level 27, Anion Gap 12, Blood Urea Nitrogen 65H, Creatinine 6.0H, Estimat Glomerular Filtration Rate 9.6, Glucose Level 108H, Calcium Level 10.1, Phosphorus Level 6.2H 09/18/19 05:40: White Blood Count 12.1H, Red Blood Count 2.73L, Hemoglobin 8.1L, Hematocrit 26.0L, Mean Corpuscular Volume 95, Mean Corpuscular Hemoglobin 29.7, Mean Corpuscular Hemoglobin Concent 31.2L, Red Cell Distribution Width 15.9H, Platelet Count 108L, Mean Platelet Volume 5.4L, Neutrophils (%) (Auto) , Lymphocytes (%) (Auto) , Monocytes (%) (Auto) , Eosinophils (%) (Auto) , Basophils (%) (Auto) , Differential Total Cells Counted 100, Neutrophils % ( Manual) 91H, Lymphocytes % (Manual) 1L, Monocytes % (Manual) 8, Eosinophils % ( Manual) 0, Basophils % (Manual) 0, Band Neutrophils 0, Platelet Estimate DecreasedL, Platelet Morphology Normal, Anisocytosis 1+, Sodium Level 138, Potassium Level 4.3, Chloride Level 99, Carbon Dioxide Level 26, Anion Gap 13, Blood Urea Nitrogen 52H, Creatinine 5.1H, Estimat Glomerular Filtration Rate 11.6, Glucose Level 86, Calcium Level 10.1 Height (Feet): 5 Height (Inches): 8.00 Weight (Pounds): 188 Justin Hutson MD Sep 18, 2019 11:59
[2019-09-18 12:00] VITALS: BP 133/67
--- NOTE | 2019-09-18 12:23 | Consultation ---
History of Present Illness General Date patient seen: Sep 18, 2019 Chief Complaint: Chest Pain Present Illness HPI 63 y/o M with hx of HTN, GERD, Dm2 c/w nephropathy, neuropathy and gastroparesis , severe CM w/ EF 15-20%, ESRD on HD MWF via R side permacath, SNF resident presented to ED on 09/14/19 with SOB, LE edema, severe scrotal edema and chest pain. Upon admission EKG showed 1st degree AV block Denied f/c, cough Allergies: Coded Allergies: No Known Allergies (Unverified , 07/06/19) Medication History Scheduled Aspirin* (Aspirin*), 81 MG ORAL DAILY, (Reported) Carvedilol (Coreg), 12.5 MG ORAL EVERY 12 HOURS, (Reported) Clonidine Hcl* (Catapres*), 0.1 MG ORAL EVERY 4 HOURS, (Reported) Docusate Sodium* (Docusate Sodium*), 100 MG ORAL TID ON T,TH,S,S, (Reported) Epoetin Garrett (Epogen), 3,000 UNIT SUBQ 3XW M,W,F, (Reported) Escitalopram Oxalate* (Lexapro*), 10 MG ORAL DAILY Famotidine* (Pepcid 20mg tablet*), 20 MG ORAL DAILY, (Reported) Hydralazine HCl (Hydralazine HCl), 10 MG ORAL QID Insulin Aspart (Novolog Flexpen), UNIT SUBQ .SLIDING SCALE, (Reported) Lidocaine (Lidocaine), 1 APPLIC TP TID, (Reported) Terbinafine Hcl (Terbinafine Hcl), 1 APPLIC TP BID, (Reported) Triamcinolone Acetonide (Triamcinolone Acetonide 0.1% Oint*), 1 APPLIC TP TID, ( Reported) Vitamin B Cmplx/Vit C/Folic AC (Nephro-Eduar Tablet), 1 TAB ORAL DAILY, (Reported ) Scheduled PRN Acetaminophen* (Acetaminophen Extra Strength*), 500 MG ORAL Q6H PRN for For Pain Level <=5, (Reported) Acetaminophen* (Acetaminophen 325MG Tablet*), 650 MG ORAL Q6H PRN for PAIN/TEMP, (Reported) Acetaminophen* (Acetaminophen Extra Strength*), 1,000 MG ORAL Q6H PRN for Pain Scale (6-10), (Reported) Diphenhydramine Hcl* (Diphenhydramine Hcl*), 25 MG ORAL Q6H PRN for Itching, ( Reported) Ondansetron (Zofran), 4 MG ORAL Q6H PRN for Nausea & Vomiting, (Reported) Polyethylene Glycol 3350* (Polyethylene Glycol 3350*), 17 GM ORAL BEDTIME PRN for Constipation, (Reported) Discontinued Medications Acetaminophen* (Acetaminophen 325MG Tablet*), 325 MG ORAL Q6H PRN for PAIN 5-7, (Reported) Discontinued Reason: Therapy completed Acetaminophen* (Acetaminophen Extra Strength*), 1,000 MG ORAL Q6H, (Reported) Discontinued Reason: Medication dose changed Aspirin (Aspirin), 81 MG PO DAILY, (Reported) Discontinued Reason: Therapy completed Carvedilol (Coreg), 12.5 MG ORAL EVERY 12 HOURS Discontinued Reason: Therapy completed Clonidine Hcl* (Catapres*), 0.1 MG ORAL EVERY 4 HOURS PRN for SBP>160, (Reported ) Discontinued Reason: Therapy completed Diphenhydramine Hcl* (Benadryl*), 25 MG ORAL Q6H PRN for Itching, (Reported) Discontinued Reason: Therapy completed Docusate Sodium (Docusate Sodium), 100 MG ORAL TID, (Reported) Discontinued Reason: Therapy completed Epoetin Garrett (Epogen), 3,000 UNIT SUBQ 3XW, (Reported) Discontinued Reason: Therapy completed Escitalopram Oxalate (Lexapro), 10 MG ORAL DAILY, (Reported) Discontinued Reason: Therapy completed Famotidine* (Pepcid 20mg tablet*), 20 MG ORAL DAILY Discontinued Reason: Therapy completed Neomycin/Polymyxin/Bacitracin* (Triple Antibiotic Ointment*), 1 APPLIC TOPIC DAILY, (Reported) Discontinued Reason: Therapy completed Ondansetron Odt* (Zofran Odt*), 4 MG BC EVERY 6 HOURS PRN for Nausea & Vomiting, (Reported) Discontinued Reason: Therapy completed Polyethylene Glycol 3350* (Polyethylene Glycol 3350*), 17 GM ORAL BEDTIME PRN for Constipation, (Reported) Discontinued Reason: Therapy completed Vitamin B Cmplx/Vit C/Folic AC (Nephro-Eduar Tablet), 1 TAB ORAL DAILY Discontinued Reason: Therapy completed [Insulin Novolog], (Reported) Discontinued Reason: Therapy completed Patient History Healthcare decision maker Resuscitation status Do Not Resuscitate Advanced Directive on File Patient History Narrative Pmhx: as above Shx: He lives in a assisted. Does not smoke or drink alcohol. Fhx: non contributory Physical Exam Physical Exam Narrative GENERAL: The patient is awake and responsive, in no acute distress. HEAD AND NECK: Pupils are equally reactive to light. Extraocular movements intact. Neck was supple. Positive JVD. LUNGS: Good air entry. No wheezing or rhonchi. Decreased air in the bases. HEART: S1, S2. Distant heart sounds. No murmur or gallop. Chest wall has a PermCath. No sign of infection. ABDOMEN: Soft, nondistended, and nontender. Positive bowel sounds. EXTREMITIES: +3 edema in bilateral lower extremity. No cyanosis or clubbing. PELVIC: Scrotum has edema and penile edema was noted. Last 24 Hour Vital Signs Date Time Temp Pulse Resp B/P (MAP) Pulse Ox O2 Delivery O2 Flow Rate FiO2 09/18/19 09:00 79 09/18/19 09:00 Nasal Cannula 2.0 09/18/19 08:52 156/75 09/18/19 08:52 156/75 09/18/19 08:52 80 156/75 09/18/19 08:00 99.3 80 20 156/75 (102) 92 09/18/19 04:00 98.4 75 18 131/65 (87) 95 09/18/19 04:00 72 09/18/19 00:00 98.1 76 20 147/63 (91) 98 09/18/19 00:00 74 09/17/19 21:44 77 158/73 09/17/19 21:00 Nasal Cannula 2.0 09/17/19 20:00 74 09/17/19 20:00 99.1 77 20 158/73 (101) 98 09/17/19 17:10 141/76 09/17/19 17:09 141/76 09/17/19 16:00 67 09/17/19 16:00 96.7 62 19 141/76 (97) 100 Intake and Output 09/17/19 09/18/19 18:59 06:59 Intake Total 400 ml Output Total 400 ml Balance 0 ml Intake Oral 400 ml Output Urine Total 400 ml # Voids 3 1 Laboratory Tests Test 09/17/19 14:20 11/26/19 05:40 White Blood Count 13.1 K/UL (4.8-10.8) H 12.1 K/UL (4.8-10.8) H Red Blood Count 2.71 M/UL (4.70-6.10) L 2.73 M/UL (4.70-6.10) L Hemoglobin 8.0 G/DL (14.2-18.0) L 8.1 G/DL (14.2-18.0) L Hematocrit 25.8 % (42.0-52.0) L 26.0 % (42.0-52.0) L Mean Corpuscular Volume 95 FL (80-99) 95 FL (80-99) Mean Corpuscular Hemoglobin 29.6 PG (27.0-31.0) 29.7 PG (27.0-31.0) Mean Corpuscular Hemoglobin Concent 31.2 G/DL (32.0-36.0) L 31.2 G/DL (32.0-36.0) L Red Cell Distribution Width 15.6 % (11.6-14.8) H 15.9 % (11.6-14.8) H Platelet Count 96 K/UL (150-450) L 108 K/UL (150-450) L Mean Platelet Volume 5.1 FL (6.5-10.1) L 5.4 FL (6.5-10.1) L Neutrophils (%) (Auto) % (45.0-75.0) % (45.0-75.0) Lymphocytes (%) (Auto) % (20.0-45.0) % (20.0-45.0) Monocytes (%) (Auto) % (1.0-10.0) % (1.0-10.0) Eosinophils (%) (Auto) % (0.0-3.0) % (0.0-3.0) Basophils (%) (Auto) % (0.0-2.0) % (0.0-2.0) Differential Total Cells Counted 100 100 Neutrophils % (Manual) 92 % (45-75) H 91 % (45-75) H Lymphocytes % (Manual) 6 % (20-45) L 1 % (20-45) L Monocytes % (Manual) 1 % (1-10) 8 % (1-10) Eosinophils % (Manual) 0 % (0-3) 0 % (0-3) Basophils % (Manual) 1 % (0-2) 0 % (0-2) Band Neutrophils 0 % (0-8) 0 % (0-8) Platelet Estimate Decreased L Decreased L Platelet Morphology Normal Normal Hypochromasia 1+ Anisocytosis 1+ 1+ Sodium Level 138 MMOL/L (136-145) 138 MMOL/L (136-145) Potassium Level 4.8 MMOL/L (3.5-5.1) 4.3 MMOL/L (3.5-5.1) Chloride Level 99 MMOL/L (98-107) 99 MMOL/L (98-107) Carbon Dioxide Level 27 MMOL/L (21-32) 26 MMOL/L (21-32) Anion Gap 12 mmol/L (5-15) 13 mmol/L (5-15) Blood Urea Nitrogen 65 mg/dL (7-18) H 52 mg/dL (7-18) H Creatinine 6.0 MG/DL (0.55-1.30) H 5.1 MG/DL (0.55-1.30) H Estimat Glomerular Filtration Rate 9.6 mL/min (>60) 11.6 mL/min (>60) Glucose Level 108 MG/DL (74-106) H 86 MG/DL (74-106) Calcium Level 10.1 MG/DL (8.5-10.1) 10.1 MG/DL (8.5-10.1) Phosphorus Level 6.2 MG/DL (2.5-4.9) H Height (Feet): 5 Height (Inches): 8.00 Weight (Pounds): 188 Medications Current Medications Medications (Trade) Dose Ordered Sig/Trav Route PRN Reason Start Time Stop Time Status Last Admin Dose Admin Acetaminophen (Tylenol) 500 mg Q6H PRN ORAL Mild Pain (Pain Scale 1-3) 09/15/19 00:15 10/14/19 22:59 Acetaminophen (Tylenol) 650 mg Q4H PRN ORAL Mild Pain (Pain Scale 1-3) 09/14/19 23:00 10/14/19 22:59 09/15/19 06:54 Aspirin (ASA) 81 mg DAILY ORAL 09/15/19 09:00 10/15/19 08:59 09/18/19 08:52 Atorvastatin Calcium (Lipitor) 20 mg BEDTIME ORAL 09/15/19 21:00 10/15/19 20:59 09/17/19 21:44 Carvedilol (Coreg) 12.5 mg EVERY 12 HOURS ORAL 09/15/19 09:00 10/15/19 08:59 09/18/19 08:52 Clonidine HCl (Catapres Tab) 0.1 mg EVERY 4 HOURS PRN ORAL For High Blood Pressure 09/15/19 01:00 10/15/19 00:59 Dextrose (Dextrose 50%) 25 ml Q30M PRN IV Hypoglycemia 09/14/19 23:00 10/14/19 22:59 Dextrose (Dextrose 50%) 50 ml Q30M PRN IV Hypoglycemia 09/14/19 23:00 10/14/19 22:59 Diphenhydramine HCl (Benadryl) 25 mg Q6H PRN ORAL Itching/Pruritis 09/14/19 23:00 10/14/19 22:59 Docusate Sodium (Colace) 100 mg BID ORAL 09/15/19 09:00 10/15/19 08:59 09/18/19 08:52 Epoetin Garrett (Epoetin Garrett(ESRD on dialysis)) 3,000 unit -TUE SUBQ 09/17/19 21:00 10/17/19 20:59 09/17/19 21:44 Epoetin Garrett (Epoetin Garrett(ESRD on dialysis)) 4,000 unit SUBQ 09/17/19 21:00 10/17/19 20:59 09/17/19 21:44 Famotidine (Pepcid) 20 mg DAILY ORAL 09/15/19 09:00 10/15/19 08:59 09/18/19 08:52 Heparin Sodium (Porcine) (Heparin 5000 units/ml) 5,000 units EVERY 12 HOURS SUBQ 09/15/19 13:45 10/15/19 13:44 Heparin Sodium (Porcine) (Heparin Sod 1000 units/ml 10ml) 2,000 unit ONCE PRN IV dialysis 09/19/19 12:00 09/19/19 23:59 Heparin Sodium (Porcine) (Heparin) 1,000 unit POSTHD INJ 09/19/19 12:00 09/19/19 23:59 Hydralazine HCl (Apresoline) 25 mg BID ORAL 09/15/19 18:00 10/15/19 08:59 09/18/19 08:52 Insulin Aspart (NovoLOG) BEFORE MEALS AND HS SUBQ 09/15/19 06:30 10/15/19 06:29 Isosorbide Dinitrate (Isordil) 10 mg BID ORAL 09/15/19 18:00 10/15/19 17:59 09/18/19 08:52 Lorazepam (Ativan 2mg/ml 1ml) 0.5 mg Q6H PRN IV For Anxiety 09/16/19 00:45 09/23/19 00:44 09/16/19 00:51 Morphine Sulfate (Morphine Sulfate) 1 mg Q4HR PRN IVP For Pain 09/14/19 23:00 09/21/19 22:59 Morphine Sulfate (Morphine Sulfate) 2 mg Q4HR PRN IVP Severe Pain (Pain Scale 7-10) 09/14/19 23:00 09/21/19 22:59 09/17/19 11:15 Nitroglycerin (Ntg) 0.4 mg Q5M PRN SL Prn Chest Pain 09/14/19 23:00 10/14/19 22:59 09/15/19 11:03 Ondansetron HCl (Zofran) 4 mg Q6H PRN ORAL Nausea & Vomiting 09/14/19 23:00 10/14/19 22:59 Pantoprazole (Protonix) 40 mg DAILY ORAL 09/15/19 09:00 10/15/19 08:59 09/18/19 08:52 Polyethylene Glycol (Miralax) 17 gm BEDTIME PRN ORAL Constipation 09/14/19 23:00 10/14/19 22:59 Polyethylene Glycol (Miralax) 17 gm DAILYPRN PRN ORAL Constipation 09/14/19 23:00 10/14/19 22:59 Prochlorperazine (Compazine) 10 mg Q6H PRN IVP Nausea & Vomiting 09/14/19 23:00 10/14/19 22:59 Sodium Chloride 1,000 ml @ 500 mls/hr Q2H PRN IVLG sbp<90 during hd 09/19/19 11:59 09/19/19 23:59 Triamcinolone (Kenalog) 1 applic TID TOPIC 09/15/19 09:00 10/15/19 08:59 09/18/19 08:53 Vitamin B Complex/ Vit C/Folic Acid (Nephrovite) 1 tab DAILY ORAL 09/15/19 09:00 10/15/19 08:59 09/18/19 08:52 Assessment/Plan Assessment/Plan: Abx: None Assessment: MIld leukocytosis - ?reactive. No apparent infectious process at present Afebrile -09/14 CXR: . Unchanged right IJ approach dual-lumen catheter, tip near the cavoatrial junction. Similar-appearing, perhaps mildly improved right small- moderate and left small pleural effusions with passive atelectasis or consolidation, correlate clinically. Unchanged cardiomegaly. Unchanged low lung volumes. Bcx NTD CHF exacerbation Troponinemia Elevated LFts- r/o hepatobiliary disease HTN GERD Dm2 c/w nephropathy neuropathy and gastroparesis severe CM w/ EF 15-20% ESRD on HD MWF via R side permacath SNF resident Plan: -Continue to monitor off abx unless febrile, increasing WBC and/or HD instability -f/u cx -Monitor CBC/CMP, temperatures -CXR, BCx from HD line -Cdiff if diarrhea -CBC, CMP am -abd US Thank you for this consultation. Will continue to follow along with you. Discussed with Leila Pride M.D. Sep 18, 2019 12:23
--- NOTE | 2019-09-18 13:50 | NUR ---
RD ASSESSMENT & RECOMMENDATIONS SEE CARE ACTIVITY FOR COMPLETE ASSESSMENT DAILY ESTIMATED NEEDS: Needs based on ESRD on HD, 74kg abw 25-30 kcals/kg [id number] total kcals 1.2-1.8 g protein/kg 89-133 g total protein Fluid per MD, on HD mL/kg total fluid mLs NUTRITION DIAGNOSIS: Increased kcal/protein needs R/T ESRD as evidenced by pt on HD. CURRENT DIET: Renal, CCHO MED PO DIET RECOMMENDATIONS: Continue Renal + CCHO med/ texture as tolerated ADDITIONAL RECOMMENDATIONS: 1) Obtain a dry standing weight POST HD 2) Add Nephrovite x 1 3) Add Nepro x 1 w/ variable PO intake . . .
--- NOTE | 2019-09-18 14:21 | NUR ---
NURSE NOTES: Pt received from Liz HARDY. Patient stable, drowsy. No complaints of pain no s/sx of distress. RR even and unlabored on 2L NC. Will continue to monitor.
--- NOTE | 2019-09-18 14:29 | NUR ---
HAND-OFF: Report given to Gianna Colby.Plan of care endorsed.
--- NOTE | 2019-09-18 14:30 | Diagnostic Imaging Report ---
Indication: Cough Comparison: 09/14/2019 A single view chest radiograph was obtained. Findings: Pulmonary vascular congestion appears slightly worse. Cardiomegaly is moderate. There is a right permacath which appears stable. IMPRESSION: Worsening interstitial edema
[2019-09-18 16:00] VITALS: BP 143/73
--- NOTE | 2019-09-18 16:01 | Diagnostic Imaging Report ---
Indication: Abdominal pain Technique: Grayscale and duplex Doppler imaging of the abdomen performed. Comparison: None Findings: The liver is unremarkable. The main portal vein shows abnormal pulsatile waveform with flow both antegrade and retrograde. There is mild ascites. There is a moderate right pleural effusion. No biliary ductal dilatation is identified. There is thickening of the wall the gallbladder. No gallstones are identified. CBD is 6.6 mm. The spleen is enlarged measuring between 13 and 14 cm. Kidneys are echogenic. There is no hydronephrosis appreciated. The left kidney is not well seen. Pancreas is also not well seen. IMPRESSION: Portal hypertension suspected with ascites, splenomegaly and abnormal Doppler evaluation of the main portal vein. Thickened gallbladder wall nonspecific. Mild ascites Splenomegaly Right pleural effusion para graft medical renal disease suspected. Left kidney not seen well.
--- NOTE | 2019-09-18 16:13 | NUR ---
NURSE NOTES: Dr. Garcia called to notify him that patient is in bigeminy. Awaiting call back. Addendum: 09/18/19 at 1642 by GARRETT WOLF RN 12 lead ECG performed and confirmed bigeminy. Pt then returned to first degree AVB.
[2019-09-18] MEDS: Acetaminophen 500mg (ES) tab ORAL PRN (17:06)
--- NOTE | 2019-09-18 17:38 | Internal Med Progress Note ---
Subjective Date of Service: Sep 18, 2019 Physician Name Kuldip Crisostomo Attending Physician Geovany Roblero MD Current Medications Medications (Trade) Dose Ordered Sig/Trav Route PRN Reason Start Time Stop Time Status Last Admin Dose Admin Acetaminophen (Tylenol) 500 mg Q6H PRN ORAL Mild Pain (Pain Scale 1-3) 09/15/19 00:15 10/14/19 22:59 09/18/19 17:06 Acetaminophen (Tylenol) 650 mg Q4H PRN ORAL Mild Pain (Pain Scale 1-3) 09/14/19 23:00 10/14/19 22:59 09/15/19 06:54 Aspirin (ASA) 81 mg DAILY ORAL 09/15/19 09:00 10/15/19 08:59 09/18/19 08:52 Atorvastatin Calcium (Lipitor) 20 mg BEDTIME ORAL 09/15/19 21:00 10/15/19 20:59 09/17/19 21:44 Carvedilol (Coreg) 12.5 mg EVERY 12 HOURS ORAL 09/15/19 09:00 10/15/19 08:59 09/18/19 08:52 Clonidine HCl (Catapres Tab) 0.1 mg EVERY 4 HOURS PRN ORAL For High Blood Pressure 09/15/19 01:00 10/15/19 00:59 Dextrose (Dextrose 50%) 25 ml Q30M PRN IV Hypoglycemia 09/14/19 23:00 10/14/19 22:59 Dextrose (Dextrose 50%) 50 ml Q30M PRN IV Hypoglycemia 09/14/19 23:00 10/14/19 22:59 Diphenhydramine HCl (Benadryl) 25 mg Q6H PRN ORAL Itching/Pruritis 09/14/19 23:00 10/14/19 22:59 Docusate Sodium (Colace) 100 mg BID ORAL 09/15/19 09:00 10/15/19 08:59 09/18/19 17:07 Epoetin Garrett (Epoetin Garrett(ESRD on dialysis)) 3,000 unit -TUE SUBQ 09/17/19 21:00 10/17/19 20:59 09/17/19 21:44 Epoetin Garrett (Epoetin Garrett(ESRD on dialysis)) 4,000 unit TUE-TUE-TUE SUBQ 09/17/19 21:00 10/17/19 20:59 09/17/19 21:44 Famotidine (Pepcid) 20 mg DAILY ORAL 09/15/19 09:00 10/15/19 08:59 09/18/19 08:52 Heparin Sodium (Porcine) (Heparin 5000 units/ml) 5,000 units EVERY 12 HOURS SUBQ 09/15/19 13:45 10/15/19 13:44 Heparin Sodium (Porcine) (Heparin Sod 1000 units/ml 10ml) 2,000 unit ONCE PRN IV dialysis 09/19/19 12:00 09/19/19 23:59 Heparin Sodium (Porcine) (Heparin) 1,000 unit POSTHD INJ 09/19/19 12:00 09/19/19 23:59 Hydralazine HCl (Apresoline) 25 mg BID ORAL 09/15/19 18:00 10/15/19 08:59 09/18/19 17:06 Insulin Aspart (NovoLOG) BEFORE MEALS AND HS SUBQ 09/15/19 06:30 10/15/19 06:29 Isosorbide Dinitrate (Isordil) 10 mg BID ORAL 09/15/19 18:00 10/15/19 17:59 09/18/19 17:06 Lorazepam (Ativan 2mg/ml 1ml) 0.5 mg Q6H PRN IV For Anxiety 09/16/19 00:45 09/23/19 00:44 09/16/19 00:51 Morphine Sulfate (Morphine Sulfate) 1 mg Q4HR PRN IVP For Pain 09/14/19 23:00 09/21/19 22:59 Morphine Sulfate (Morphine Sulfate) 2 mg Q4HR PRN IVP Severe Pain (Pain Scale 7-10) 09/14/19 23:00 09/21/19 22:59 09/17/19 11:15 Nitroglycerin (Ntg) 0.4 mg Q5M PRN SL Prn Chest Pain 09/14/19 23:00 10/14/19 22:59 09/15/19 11:03 Ondansetron HCl (Zofran) 4 mg Q6H PRN ORAL Nausea & Vomiting 09/14/19 23:00 10/14/19 22:59 Pantoprazole (Protonix) 40 mg DAILY ORAL 09/15/19 09:00 10/15/19 08:59 09/18/19 08:52 Polyethylene Glycol (Miralax) 17 gm BEDTIME PRN ORAL Constipation 09/14/19 23:00 10/14/19 22:59 Polyethylene Glycol (Miralax) 17 gm DAILYPRN PRN ORAL Constipation 09/14/19 23:00 10/14/19 22:59 Prochlorperazine (Compazine) 10 mg Q6H PRN IVP Nausea & Vomiting 09/14/19 23:00 10/14/19 22:59 Sodium Chloride 1,000 ml @ 500 mls/hr Q2H PRN IVLG sbp<90 during hd 09/19/19 11:59 09/19/19 23:59 Triamcinolone (Kenalog) 1 applic TID TOPIC 09/15/19 09:00 10/15/19 08:59 09/18/19 17:07 Vitamin B Complex/ Vit C/Folic Acid (Nephrovite) 1 tab DAILY ORAL 09/15/19 09:00 10/15/19 08:59 09/18/19 08:52 Allergies: Coded Allergies: No Known Allergies (Unverified , 07/06/19) ROS Limited/Unobtainable: No Constitutional: Reports: no symptoms HEENT: Reports: no symptoms Cardiovascular: Reports: chest pain Respiratory: Reports: no symptoms Gastrointestinal/Abdominal: Reports: no symptoms Genitourinary: Reports: no symptoms Neurologic/Psychiatric: Reports: no symptoms Subjective 63 YO M admitted with chest pain. Cover for Int Zhang-dr Roblero Objective Last Vital Signs Date Time Temp Pulse Resp B/P (MAP) Pulse Ox O2 Delivery O2 Flow Rate FiO2 09/18/19 17:06 143/73 09/18/19 16:00 101.8 72 19 93 09/18/19 09:00 Nasal Cannula 2.0 Laboratory Tests Test 09/18/19 05:40 White Blood Count 12.1 K/UL (4.8-10.8) H Red Blood Count 2.73 M/UL (4.70-6.10) L Hemoglobin 8.1 G/DL (14.2-18.0) L Hematocrit 26.0 % (42.0-52.0) L Mean Corpuscular Volume 95 FL (80-99) Mean Corpuscular Hemoglobin 29.7 PG (27.0-31.0) Mean Corpuscular Hemoglobin Concent 31.2 G/DL (32.0-36.0) L Red Cell Distribution Width 15.9 % (11.6-14.8) H Platelet Count 108 K/UL (150-450) L Mean Platelet Volume 5.4 FL (6.5-10.1) L Neutrophils (%) (Auto) % (45.0-75.0) Lymphocytes (%) (Auto) % (20.0-45.0) Monocytes (%) (Auto) % (1.0-10.0) Eosinophils (%) (Auto) % (0.0-3.0) Basophils (%) (Auto) % (0.0-2.0) Differential Total Cells Counted 100 Neutrophils % (Manual) 91 % (45-75) H Lymphocytes % (Manual) 1 % (20-45) L Monocytes % (Manual) 8 % (1-10) Eosinophils % (Manual) 0 % (0-3) Basophils % (Manual) 0 % (0-2) Band Neutrophils 0 % (0-8) Platelet Estimate Decreased L Platelet Morphology Normal Anisocytosis 1+ Sodium Level 138 MMOL/L (136-145) Potassium Level 4.3 MMOL/L (3.5-5.1) Chloride Level 99 MMOL/L (98-107) Carbon Dioxide Level 26 MMOL/L (21-32) Anion Gap 13 mmol/L (5-15) Blood Urea Nitrogen 52 mg/dL (7-18) H Creatinine 5.1 MG/DL (0.55-1.30) H Estimat Glomerular Filtration Rate 11.6 mL/min (>60) Glucose Level 86 MG/DL (74-106) Calcium Level 10.1 MG/DL (8.5-10.1) Intake and Output 09/17/19 09/18/19 18:59 06:59 Intake Total 400 ml Output Total 400 ml Balance 0 ml Intake Oral 400 ml Output Urine Total 400 ml # Voids 3 1 Objective Objective GENERAL: The patient is awake and responsive, in no acute distress. HEAD AND NECK: Pupils are equally reactive to light. Extraocular movements intact. Neck was supple. Positive JVD. LUNGS: Good air entry. No wheezing or rhonchi. Decreased air in the bases. HEART: S1, S2. Distant heart sounds. No murmur or gallop. Chest wall has a PermCath. No sign of infection. ABDOMEN: Soft, nondistended, and nontender. Positive bowel sounds. EXTREMITIES: +3 edema in bilateral lower extremity. No cyanosis or clubbing. PELVIC: Scrotum has edema and penile edema was noted. NEUROLOGIC: Cranial nerves II through XII grossly, unsteady gait. Assessment/Plan Assessment/Plan Assessment/Plan Assessment/Plan ASSESSMENT: 1. Chest pain with mild elevated Troponin, possible acute coronary syndrome. 2. Congestive heart failure with reduced ejection fraction. 3. End-stage renal disease, on hemodialysis, Tuesday, Tuesday, and Tuesday. 4. Diabetes type 2 with diabetic gastroparesis as well as diabetic neuropathy and diabetic nephropathy. 5. Gastroesophageal reflux disease. 6. Hypertension. 7. Mobitz type 1 first-degree AV block. 8. Anasarca. 9. Pedal edema. 10. Severe cardiomyopathy. 11. Systemic hypertension. 12. Dialysis noncompliance. 13. Mitral as well as tricuspid regurgitation. PLAN: On telemetry. Dr. Garcia from Cardiology Electrophysiology consultation; Dr. Mercer, Pulmonary Critical Care; Dr. Justin Hutson from Nephrology. Last dialysis 09/17/19 Code status at per POLST is DNR. DVT prophylaxis, heparin subcutaneous. Accu-Chek, sliding scale. Kuldip Crisostomo MD Sep 18, 2019 17:38
--- NOTE | 2019-09-18 19:52 | NUR ---
HAND-OFF: Report given to Oneida HARDY. Patient with 100.8 fever. Endorsed new orders from Dr. Roblero.
[2019-09-18 20:00] VITALS: BP 131/59
--- NOTE | 2019-09-18 20:03 | NUR ---
NURSE NOTES: RECEIVED PATIENT RESTING IN BED. FALL AND ASPIRATION PRECAUTIONS IN PLACE: CALL LIGHT AND BED TABLE WITHIN REACH, BED IN LOW POSITION AND BED ALARM ON;HOB ELEVATED. WILL CONTINUE WITH PLAN OF CARE.
[2019-09-18] MEDS: Atorvastatin 20mg tab ORAL SCH (20:52)
[2019-09-18] MEDS ORDERED: Cefepime HCl 1 GM in D5W 55 ML IVPB SCH (21:00)
[2019-09-18] MEDS ORDERED: Vancomycin 1.5gm/NS Premix q24h IVPB SCH (22:00)
[2019-09-19] VITALS: BP 108/45
[2019-09-19 04:00] VITALS: BP 100/67
[2019-09-19] MEDS: NovoLOG Insulin Flexpen SUBQ SCH ×4 (06:02→20:55)
[2019-09-19 06:36] LABS: HEMATOCRIT 24.9 % (42.0-52.0); HEMOGLOBIN 7.7 G/DL (14.2-18.0); MEAN CORPUSCULAR VOLUME 95 FL (80-99); PLATELET COUNT 100 K/UL (150-450); RED BLOOD COUNT 2.62 M/UL (4.70-6.10); RED CELL DISTRIBUTION WIDTH 15.3 % (11.6-14.8); WHITE BLOOD COUNT 11.9 K/UL (4.8-10.8)
--- NOTE | 2019-09-19 07:09 | NUR ---
HAND-OFF: Report given to Joana AVERY RN. PATIENT ASLEEP, NO SIGNS OF DISTRESS NOTED.
[2019-09-19 07:17] LABS: ALANINE AMINOTRANSFERASE 131 U/L (12-78); ALBUMIN 2.2 G/DL (3.4-5.0); ALBUMIN/GLOBULIN RATIO 0.4 (1.0-2.7); ALKALINE PHOSPHATASE 572 U/L (46-116); ANION GAP 13 mmol/L (5-15); ASPARTATE AMINO TRANSFERASE 173 U/L (15-37); BILIRUBIN,TOTAL 1.5 MG/DL (0.2-1.0); BLOOD UREA NITROGEN 66 mg/dL (7-18); CALCIUM 9.8 MG/DL (8.5-10.1); CARBON DIOXIDE 26 MMOL/L (21-32); CHLORIDE 100 MMOL/L (98-107); CREATININE 6.3 MG/DL (0.55-1.30); POTASSIUM 4.4 MMOL/L (3.5-5.1); SODIUM 139 MMOL/L (136-145)
[2019-09-19 07:23] LABS: BILIRUBIN,DIRECT 1.1 MG/DL (0.0-0.3)
--- NOTE | 2019-09-19 07:31 | NUR ---
NURSE NOTES: Received patient from Gianna Mohamud. Patient is awake resting comfortably in bed. NO complain of pain or discomfort at this time. Fall precautions in place. call banks within reach will follow.
[2019-09-19 08:00] VITALS: BP 114/64
[2019-09-19] MEDS: Nephrovite tab (Rena-Vite) ORAL SCH (08:24)
[2019-09-19] MEDS: Aspirin Baby 81mg ORAL SCH (08:24)
[2019-09-19] MEDS: Triamcinolone 0.1% oint TOPIC SCH ×3 (08:24→17:26)
[2019-09-19] MEDS: Docusate 100mg cap ORAL SCH ×2 (08:24→17:22)
[2019-09-19] MEDS: HydrALAZINE 25mg tab ORAL SCH ×2 (08:47→17:22)
[2019-09-19] MEDS: Carvedilol 12.5mg tab ORAL SCH ×2 (08:47→20:55)
[2019-09-19] MEDS: Heparin 5000 units/ml inj SUBQ SCH ×2 (09:00→20:57)
--- NOTE | 2019-09-19 09:32 | NUR ---
CASE MANAGEMENT: REVIEW 09/19/19 SI: ESRD ON HD . PULMONARY EDEMA . CHF . R.PLEURAL EFFUSION . DM2 98.1 76 19 114/64 96% NC/2L WBC 11.9 RBC 2.62 H/H 7.7/24.9 BUN 66 CREAT 6.3 BG 123 IS: IV VANCOMYCIN X1 IV CEFEPIME Q24HR EPOETIN SQ QOD NOVOLOG SQ AC&HS PROTONIX PO QD ASA PO QD NEPHROVITE PO QD : 2E TELE UNIT PLAN: HD TODAY LABS-PENDING 09/18/19-FEVER 101.8- VANCOMYCIN X1 DOSE DCP: PATIENT IS FROM [facility]
--- NOTE | 2019-09-19 09:34 | NUR ---
NURSE NOTES: Dr. Roblero made aware of H&H results for today hgb 7.7, Hct 24.9. No new orders received.will monitor.
--- NOTE | 2019-09-19 10:48 | Cardiac Electrophysiology PN ---
Assessment/Plan Assessment/Plan 1. Troponin elevation but levels are flat, likely due to renal failure Continue aspirin, Coreg and Lipitor 2. Severe cardiomyopathy with EF of 15% to 20%. Refused echo again. Continue Coreg, hydralazine, HD and Isordil. If the ejection fraction remains less than 30%, will need defibrillator implantation. 3. Hypertension. Continue current heart failure therapy. 4. End-stage renal disease, on hemodialysis. 5. Diabetes. AFSHAN RN Subjective Subjective In SR with first degree AVB. No CP or SOB. Getting HD Objective Last 24 Hour Vital Signs Date Time Temp Pulse Resp B/P (MAP) Pulse Ox O2 Delivery O2 Flow Rate FiO2 09/19/19 09:00 Nasal Cannula 2.0 09/19/19 08:48 114/64 09/19/19 08:47 114/64 09/19/19 08:47 76 114/64 09/19/19 08:00 72 09/19/19 08:00 98.1 76 19 114/64 (81) 96 09/19/19 04:00 72 09/19/19 04:00 98.0 70 18 100/67 (78) 95 09/19/19 00:00 69 09/19/19 00:00 98.2 69 20 108/45 (66) 92 09/18/19 21:00 Nasal Cannula 2.0 09/18/19 20:53 68 131/59 09/18/19 20:00 70 09/18/19 20:00 99.7 68 20 131/59 (83) 92 09/18/19 17:57 100.8 09/18/19 17:06 143/73 09/18/19 17:06 143/73 09/18/19 16:00 101.8 72 19 143/73 (96) 93 09/18/19 16:00 74 09/18/19 12:00 72 09/18/19 12:00 98.8 76 19 133/67 (89) 94 Intake and Output 09/18/19 09/19/19 19:00 07:00 Intake Total 480 ml 570.0 ml Balance 480 ml 570.0 ml Intake Oral 480 ml 240 ml IV Total 330.0 ml # Voids 1 Laboratory Tests Test 09/19/19 05:33 White Blood Count 11.9 K/UL (4.8-10.8) H Red Blood Count 2.62 M/UL (4.70-6.10) L Hemoglobin 7.7 G/DL (14.2-18.0) L Hematocrit 24.9 % (42.0-52.0) L Mean Corpuscular Volume 95 FL (80-99) Mean Corpuscular Hemoglobin 29.3 PG (27.0-31.0) Mean Corpuscular Hemoglobin Concent 30.9 G/DL (32.0-36.0) L Red Cell Distribution Width 15.3 % (11.6-14.8) H Platelet Count 100 K/UL (150-450) L Mean Platelet Volume 5.7 FL (6.5-10.1) L Neutrophils (%) (Auto) % (45.0-75.0) Lymphocytes (%) (Auto) % (20.0-45.0) Monocytes (%) (Auto) % (1.0-10.0) Eosinophils (%) (Auto) % (0.0-3.0) Basophils (%) (Auto) % (0.0-2.0) Sodium Level 139 MMOL/L (136-145) Potassium Level 4.4 MMOL/L (3.5-5.1) Chloride Level 100 MMOL/L (98-107) Carbon Dioxide Level 26 MMOL/L (21-32) Anion Gap 13 mmol/L (5-15) Blood Urea Nitrogen 66 mg/dL (7-18) H Creatinine 6.3 MG/DL (0.55-1.30) H Estimat Glomerular Filtration Rate 9.1 mL/min (>60) Glucose Level 123 MG/DL (74-106) H Calcium Level 9.8 MG/DL (8.5-10.1) Total Bilirubin 1.5 MG/DL (0.2-1.0) H Direct Bilirubin 1.1 MG/DL (0.0-0.3) H Aspartate Amino Transf (AST/SGOT) 173 U/L (15-37) H Alanine Aminotransferase (ALT/SGPT) 131 U/L (12-78) H Alkaline Phosphatase 572 U/L (46-116) H Total Protein 7.5 G/DL (6.4-8.2) Albumin 2.2 G/DL (3.4-5.0) L Globulin 5.3 g/dL Albumin/Globulin Ratio 0.4 (1.0-2.7) L Objective HEAD AND NECK: Mild JVD. LUNGS: Decreased breath sounds. CARDIOVASCULAR: Regular S1 and S2 with no gallop or murmur. ABDOMEN: Soft. EXTREMITIES: 2+ pitting edema and scrotal edema. Guero Garcia MD Sep 19, 2019 10:48
--- NOTE | 2019-09-19 11:16 | NUR ---
NURSE NOTES: Received call from Lacey of lab patient's blood culture came back positive cocci clusters X 2 bottles.patient afebrile at this time. Dr. Granado made aware and orders repeat blood culture X2 sets. noted and carried out.
--- NOTE | 2019-09-19 11:30 | NUR ---
NURSE NOTES: Patient refused 2D echo X [address] Garcia aware and currently on the floor to see patient. MD wanted to speak with call placed to the 2 telephone numbers on file. first number is inactive and the other number keeps on ringing without answer and no Voicemail set-up. Will follow
--- NOTE | 2019-09-19 11:43 | Internal Med Progress Note ---
Subjective Date of Service: Sep 19, 2019 Physician Name Crisostomo,Kuldip Attending Physician Geovany Roblero MD Current Medications Medications (Trade) Dose Ordered Sig/Trav Route PRN Reason Start Time Stop Time Status Last Admin Dose Admin Acetaminophen (Tylenol) 500 mg Q6H PRN ORAL Mild Pain (Pain Scale 1-3) 09/15/19 00:15 10/14/19 22:59 09/18/19 17:06 Acetaminophen (Tylenol) 650 mg Q4H PRN ORAL Mild Pain (Pain Scale 1-3) 09/14/19 23:00 10/14/19 22:59 09/15/19 06:54 Aspirin (ASA) 81 mg DAILY ORAL 09/15/19 09:00 10/15/19 08:59 09/19/19 08:24 Atorvastatin Calcium (Lipitor) 20 mg BEDTIME ORAL 09/15/19 21:00 10/15/19 20:59 09/18/19 20:52 Carvedilol (Coreg) 12.5 mg EVERY 12 HOURS ORAL 09/15/19 09:00 10/15/19 08:59 09/18/19 20:53 Cefepime HCl 1 gm/ Dextrose 55 ml @ 110 mls/hr Q24H IVPB 09/18/19 21:00 09/25/19 20:59 09/18/19 20:43 Clonidine HCl (Catapres Tab) 0.1 mg EVERY 4 HOURS PRN ORAL For High Blood Pressure 09/15/19 01:00 10/15/19 00:59 Dextrose (Dextrose 50%) 25 ml Q30M PRN IV Hypoglycemia 09/14/19 23:00 10/14/19 22:59 Dextrose (Dextrose 50%) 50 ml Q30M PRN IV Hypoglycemia 09/14/19 23:00 10/14/19 22:59 Diphenhydramine HCl (Benadryl) 25 mg Q6H PRN ORAL Itching/Pruritis 09/14/19 23:00 10/14/19 22:59 Docusate Sodium (Colace) 100 mg BID ORAL 09/15/19 09:00 10/15/19 08:59 09/19/19 08:24 Epoetin Garrett (Epoetin Garrett(ESRD on dialysis)) 3,000 unit TUE-TUE-TUE SUBQ 09/17/19 21:00 10/17/19 20:59 09/17/19 21:44 Epoetin Garrett (Epoetin Garrett(ESRD on dialysis)) 4,000 unit TUE-TUE-TUE SUBQ 09/17/19 21:00 10/17/19 20:59 09/17/19 21:44 Famotidine (Pepcid) 20 mg DAILY ORAL 09/15/19 09:00 10/15/19 08:59 09/19/19 08:24 Heparin Sodium (Porcine) (Heparin 5000 units/ml) 5,000 units EVERY 12 HOURS SUBQ 09/15/19 13:45 10/15/19 13:44 Heparin Sodium (Porcine) (Heparin Sod 1000 units/ml 10ml) 2,000 unit ONCE PRN IV dialysis 09/19/19 12:00 09/19/19 23:59 Heparin Sodium (Porcine) (Heparin) 1,000 unit POSTHD INJ 09/19/19 12:00 09/19/19 23:59 Hydralazine HCl (Apresoline) 25 mg BID ORAL 09/15/19 18:00 10/15/19 08:59 09/18/19 17:06 Insulin Aspart (NovoLOG) BEFORE MEALS AND HS SUBQ 09/15/19 06:30 10/15/19 06:29 09/19/19 06:02 Isosorbide Dinitrate (Isordil) 10 mg BID ORAL 09/15/19 18:00 10/15/19 17:59 09/18/19 17:06 Lorazepam (Ativan 2mg/ml 1ml) 0.5 mg Q6H PRN IV For Anxiety 09/16/19 00:45 09/23/19 00:44 09/16/19 00:51 Morphine Sulfate (Morphine Sulfate) 1 mg Q4HR PRN IVP For Pain 09/14/19 23:00 09/21/19 22:59 Morphine Sulfate (Morphine Sulfate) 2 mg Q4HR PRN IVP Severe Pain (Pain Scale 7-10) 09/14/19 23:00 09/21/19 22:59 09/17/19 11:15 Nitroglycerin (Ntg) 0.4 mg Q5M PRN SL Prn Chest Pain 09/14/19 23:00 10/14/19 22:59 09/15/19 11:03 Ondansetron HCl (Zofran) 4 mg Q6H PRN ORAL Nausea & Vomiting 09/14/19 23:00 10/14/19 22:59 Pantoprazole (Protonix) 40 mg DAILY ORAL 09/15/19 09:00 10/15/19 08:59 09/19/19 08:24 Polyethylene Glycol (Miralax) 17 gm BEDTIME PRN ORAL Constipation 09/14/19 23:00 10/14/19 22:59 Polyethylene Glycol (Miralax) 17 gm DAILYPRN PRN ORAL Constipation 09/14/19 23:00 10/14/19 22:59 Prochlorperazine (Compazine) 10 mg Q6H PRN IVP Nausea & Vomiting 09/14/19 23:00 10/14/19 22:59 Sodium Chloride 1,000 ml @ 500 mls/hr Q2H PRN IVLG sbp<90 during hd 09/19/19 11:59 09/19/19 23:59 Triamcinolone (Kenalog) 1 applic TID TOPIC 09/15/19 09:00 10/15/19 08:59 09/19/19 08:24 Vancomycin HCl (Vanco rx to dose) 1 ea DAILY PRN MISC Per rx protocol 09/18/19 19:15 10/18/19 19:14 Vitamin B Complex/ Vit C/Folic Acid (Nephrovite) 1 tab DAILY ORAL 09/15/19 09:00 10/15/19 08:59 09/19/19 08:24 Allergies: Coded Allergies: No Known Allergies (Unverified , 07/06/19) ROS Limited/Unobtainable: No Constitutional: Reports: no symptoms HEENT: Reports: no symptoms Cardiovascular: Reports: chest pain Respiratory: Reports: no symptoms Gastrointestinal/Abdominal: Reports: no symptoms Genitourinary: Reports: no symptoms Neurologic/Psychiatric: Reports: no symptoms Subjective 63 YO M admitted with chest pain. Cover for Jaquan Roblero Objective Last Vital Signs Date Time Temp Pulse Resp B/P (MAP) Pulse Ox O2 Delivery O2 Flow Rate FiO2 09/19/19 09:00 Nasal Cannula 2.0 09/19/19 08:48 114/64 09/19/19 08:47 76 09/19/19 08:00 98.1 19 96 Laboratory Tests Test 09/19/19 05:33 White Blood Count 11.9 K/UL (4.8-10.8) H Red Blood Count 2.62 M/UL (4.70-6.10) L Hemoglobin 7.7 G/DL (14.2-18.0) L Hematocrit 24.9 % (42.0-52.0) L Mean Corpuscular Volume 95 FL (80-99) Mean Corpuscular Hemoglobin 29.3 PG (27.0-31.0) Mean Corpuscular Hemoglobin Concent 30.9 G/DL (32.0-36.0) L Red Cell Distribution Width 15.3 % (11.6-14.8) H Platelet Count 100 K/UL (150-450) L Mean Platelet Volume 5.7 FL (6.5-10.1) L Neutrophils (%) (Auto) % (45.0-75.0) Lymphocytes (%) (Auto) % (20.0-45.0) Monocytes (%) (Auto) % (1.0-10.0) Eosinophils (%) (Auto) % (0.0-3.0) Basophils (%) (Auto) % (0.0-2.0) Sodium Level 139 MMOL/L (136-145) Potassium Level 4.4 MMOL/L (3.5-5.1) Chloride Level 100 MMOL/L (98-107) Carbon Dioxide Level 26 MMOL/L (21-32) Anion Gap 13 mmol/L (5-15) Blood Urea Nitrogen 66 mg/dL (7-18) H Creatinine 6.3 MG/DL (0.55-1.30) H Estimat Glomerular Filtration Rate 9.1 mL/min (>60) Glucose Level 123 MG/DL (74-106) H Calcium Level 9.8 MG/DL (8.5-10.1) Total Bilirubin 1.5 MG/DL (0.2-1.0) H Direct Bilirubin 1.1 MG/DL (0.0-0.3) H Aspartate Amino Transf (AST/SGOT) 173 U/L (15-37) H Alanine Aminotransferase (ALT/SGPT) 131 U/L (12-78) H Alkaline Phosphatase 572 U/L (46-116) H Total Protein 7.5 G/DL (6.4-8.2) Albumin 2.2 G/DL (3.4-5.0) L Globulin 5.3 g/dL Albumin/Globulin Ratio 0.4 (1.0-2.7) L Microbiology Date/Time Source Procedure Growth Status 09/18/19 17:30 Blood Blood Culture - Preliminary Resulted Intake and Output 09/18/19 09/19/19 19:00 07:00 Intake Total 480 ml 570.0 ml Balance 480 ml 570.0 ml Intake Oral 480 ml 240 ml IV Total 330.0 ml # Voids 1 Objective Objective GENERAL: The patient is awake and responsive, in no acute distress. HEAD AND NECK: Pupils are equally reactive to light. Extraocular movements intact. Neck was supple. Positive JVD. LUNGS: Good air entry. No wheezing or rhonchi. Decreased air in the bases. HEART: S1, S2. Distant heart sounds. No murmur or gallop. Chest wall has a PermCath. No sign of infection. ABDOMEN: Soft, nondistended, and nontender. Positive bowel sounds. EXTREMITIES: +3 edema in bilateral lower extremity. No cyanosis or clubbing. PELVIC: Scrotum has edema and penile edema was noted. NEUROLOGIC: Cranial nerves II through XII grossly, unsteady gait. Assessment/Plan Assessment/Plan Assessment/Plan Assessment/Plan ASSESSMENT: 1. Chest pain with mild elevated Troponin, possible acute coronary syndrome. 2. Congestive heart failure with reduced ejection fraction. 3. End-stage renal disease, on hemodialysis, Tuesday, Tuesday, and Tuesday. 4. Diabetes type 2 with diabetic gastroparesis as well as diabetic neuropathy and diabetic nephropathy. 5. Gastroesophageal reflux disease. 6. Hypertension. 7. Mobitz type 1 first-degree AV block. 8. Anasarca. 9. Pedal edema. 10. Severe cardiomyopathy. 11. Systemic hypertension. 12. Dialysis noncompliance. 13. Mitral as well as tricuspid regurgitation. PLAN: On telemetry. Dr. Garcia from Cardiology Electrophysiology consultation; Dr. Mercer, Pulmonary Critical Care; Dr. Justin Hutson from Nephrology. Hemodialysis 09/19/19 Code status at per POLST is DNR. DVT prophylaxis, heparin subcutaneous. Accu-Chek, sliding scale. Kludip Crisostomo MD Sep 19, 2019 11:43
[2019-09-19 12:00] VITALS: BP 108/54
[2019-09-19] MEDS ORDERED: Heparin 1000 units/ml 1ml Vial INJ SCH (12:00)
[2019-09-19] MEDS ORDERED: Heparin Sod 1000 units/ml 10ml IV PRN (12:00)
--- NOTE | 2019-09-19 12:00 | NUR ---
NURSE NOTES: Patient status post HD with 1.5 L fluid out. Patient tolerated HD. VSS. Will follow.
--- NOTE | 2019-09-19 12:11 | Pulmonology Progress Note ---
Assessment/Plan Problems: (1) Pleural effusion, right (2) Pulmonary edema (3) CHF (congestive heart failure) (4) Physical debility (5) Anemia (6) ESRD needing dialysis (7) Diabetes mellitus (8) HTN (hypertension) Assessment/Plan respiratory stable watch effusion, no need for thoracentesis incentive spirometry persistent leukocytosis, ID evaluation reviewed and appreciated respiratory treatment titrate fio2 to sat of 92 HD symptomatic treatment prbc prn check stool for OB Subjective ROS Limited/Unobtainable: No Constitutional: Reports: no symptoms HEENT: Repors: no symptoms Respiratory: Reports: no symptoms Allergies: Coded Allergies: No Known Allergies (Unverified , 07/06/19) Objective Last 24 Hour Vital Signs Date Time Temp Pulse Resp B/P (MAP) Pulse Ox O2 Delivery O2 Flow Rate FiO2 09/19/19 12:00 98.7 71 19 108/54 (72) 96 09/19/19 09:00 Nasal Cannula 2.0 09/19/19 08:48 114/64 09/19/19 08:47 114/64 09/19/19 08:47 76 114/64 09/19/19 08:00 72 09/19/19 08:00 98.1 76 19 114/64 (81) 96 09/19/19 04:00 72 09/19/19 04:00 98.0 70 18 100/67 (78) 95 09/19/19 00:00 69 09/19/19 00:00 98.2 69 20 108/45 (66) 92 09/18/19 21:00 Nasal Cannula 2.0 09/18/19 20:53 68 131/59 09/18/19 20:00 70 09/18/19 20:00 99.7 68 20 131/59 (83) 92 09/18/19 17:57 100.8 09/18/19 17:06 143/73 09/18/19 17:06 143/73 09/18/19 16:00 101.8 72 19 143/73 (96) 93 09/18/19 16:00 74 Intake and Output 09/18/19 09/19/19 19:00 07:00 Intake Total 480 ml 570.0 ml Balance 480 ml 570.0 ml Intake Oral 480 ml 240 ml IV Total 330.0 ml # Voids 1 Objective General Appearance: chronically ill looking, pale HEENT: atraumatic Respiratory/Chest: chest wall non-tender, lungs clear Cardiovascular: normal peripheral pulses, regularly irregular Abdomen: normal bowel sounds, no scars Microbiology Date/Time Source Procedure Growth Status 09/18/19 17:30 Blood Blood Culture - Preliminary Resulted Laboratory Tests 09/19/19 05:33: White Blood Count 11.9H, Red Blood Count 2.62L, Hemoglobin 7.7L, Hematocrit 24.9L, Mean Corpuscular Volume 95, Mean Corpuscular Hemoglobin 29.3, Mean Corpuscular Hemoglobin Concent 30.9L, Red Cell Distribution Width 15.3H, Platelet Count 100L, Mean Platelet Volume 5.7L, Neutrophils (%) (Auto) , Lymphocytes (%) (Auto) , Monocytes (%) (Auto) , Eosinophils (%) (Auto) , Basophils (%) (Auto) , Sodium Level 139, Potassium Level 4.4, Chloride Level 100 , Carbon Dioxide Level 26, Anion Gap 13, Blood Urea Nitrogen 66H, Creatinine 6.3H, Estimat Glomerular Filtration Rate 9.1, Glucose Level 123H, Calcium Level 9.8, Total Bilirubin 1.5H, Direct Bilirubin 1.1H, Aspartate Amino Transf (AST/ SGOT) 173H, Alanine Aminotransferase (ALT/SGPT) 131H, Alkaline Phosphatase 572H , Total Protein 7.5, Albumin 2.2L, Globulin 5.3, Albumin/Globulin Ratio 0.4L Current Medications Medications (Trade) Dose Ordered Sig/Trav Route PRN Reason Start Time Stop Time Status Last Admin Dose Admin Acetaminophen (Tylenol) 500 mg Q6H PRN ORAL Mild Pain (Pain Scale 1-3) 09/15/19 00:15 10/14/19 22:59 09/18/19 17:06 Acetaminophen (Tylenol) 650 mg Q4H PRN ORAL Mild Pain (Pain Scale 1-3) 09/14/19 23:00 10/14/19 22:59 09/19/19 11:43 Aspirin (ASA) 81 mg DAILY ORAL 09/15/19 09:00 10/15/19 08:59 09/19/19 08:24 Atorvastatin Calcium (Lipitor) 20 mg BEDTIME ORAL 09/15/19 21:00 10/15/19 20:59 09/18/19 20:52 Carvedilol (Coreg) 12.5 mg EVERY 12 HOURS ORAL 09/15/19 09:00 10/15/19 08:59 09/18/19 20:53 Cefepime HCl 1 gm/ Dextrose 55 ml @ 110 mls/hr Q24H IVPB 09/18/19 21:00 09/25/19 20:59 09/18/19 20:43 Clonidine HCl (Catapres Tab) 0.1 mg EVERY 4 HOURS PRN ORAL For High Blood Pressure 09/15/19 01:00 10/15/19 00:59 Dextrose (Dextrose 50%) 25 ml Q30M PRN IV Hypoglycemia 09/14/19 23:00 10/14/19 22:59 Dextrose (Dextrose 50%) 50 ml Q30M PRN IV Hypoglycemia 09/14/19 23:00 10/14/19 22:59 Diphenhydramine HCl (Benadryl) 25 mg Q6H PRN ORAL Itching/Pruritis 09/14/19 23:00 10/14/19 22:59 Docusate Sodium (Colace) 100 mg BID ORAL 09/15/19 09:00 10/15/19 08:59 09/19/19 08:24 Epoetin Garrett (Epoetin Garrett(ESRD on dialysis)) 3,000 unit TUE-TUE-TUE SUBQ 09/17/19 21:00 10/17/19 20:59 09/17/19 21:44 Epoetin Garrett (Epoetin Garrett(ESRD on dialysis)) 4,000 unit TUE- SUBQ 09/17/19 21:00 10/17/19 20:59 09/17/19 21:44 Famotidine (Pepcid) 20 mg DAILY ORAL 09/15/19 09:00 10/15/19 08:59 09/19/19 08:24 Heparin Sodium (Porcine) (Heparin 5000 units/ml) 5,000 units EVERY 12 HOURS SUBQ 09/15/19 13:45 10/15/19 13:44 Heparin Sodium (Porcine) (Heparin Sod 1000 units/ml 10ml) 2,000 unit ONCE PRN IV dialysis 09/19/19 12:00 09/19/19 23:59 Heparin Sodium (Porcine) (Heparin) 1,000 unit POSTHD INJ 09/19/19 12:00 09/19/19 23:59 Hydralazine HCl (Apresoline) 25 mg BID ORAL 09/15/19 18:00 10/15/19 08:59 09/18/19 17:06 Insulin Aspart (NovoLOG) BEFORE MEALS AND HS SUBQ 09/15/19 06:30 10/15/19 06:29 09/19/19 06:02 Isosorbide Dinitrate (Isordil) 10 mg BID ORAL 09/15/19 18:00 10/15/19 17:59 09/18/19 17:06 Lorazepam (Ativan 2mg/ml 1ml) 0.5 mg Q6H PRN IV For Anxiety 09/16/19 00:45 09/23/19 00:44 09/16/19 00:51 Morphine Sulfate (Morphine Sulfate) 1 mg Q4HR PRN IVP For Pain 09/14/19 23:00 09/21/19 22:59 Morphine Sulfate (Morphine Sulfate) 2 mg Q4HR PRN IVP Severe Pain (Pain Scale 7-10) 09/14/19 23:00 09/21/19 22:59 09/17/19 11:15 Nitroglycerin (Ntg) 0.4 mg Q5M PRN SL Prn Chest Pain 09/14/19 23:00 10/14/19 22:59 09/15/19 11:03 Ondansetron HCl (Zofran) 4 mg Q6H PRN ORAL Nausea & Vomiting 09/14/19 23:00 10/14/19 22:59 Pantoprazole (Protonix) 40 mg DAILY ORAL 09/15/19 09:00 10/15/19 08:59 09/19/19 08:24 Polyethylene Glycol (Miralax) 17 gm BEDTIME PRN ORAL Constipation 09/14/19 23:00 10/14/19 22:59 Polyethylene Glycol (Miralax) 17 gm DAILYPRN PRN ORAL Constipation 09/14/19 23:00 10/14/19 22:59 Prochlorperazine (Compazine) 10 mg Q6H PRN IVP Nausea & Vomiting 09/14/19 23:00 10/14/19 22:59 Sodium Chloride 1,000 ml @ 500 mls/hr Q2H PRN IVLG sbp<90 during hd 09/19/19 11:59 09/19/19 23:59 Triamcinolone (Kenalog) 1 applic TID TOPIC 11/23/19 09:00 10/15/19 08:59 09/19/19 08:24 Vancomycin HCl (Vanco rx to dose) 1 ea DAILY PRN MISC Per rx protocol 09/18/19 19:15 10/18/19 19:14 Vitamin B Complex/ Vit C/Folic Acid (Nephrovite) 1 tab DAILY ORAL 09/15/19 09:00 10/15/19 08:59 09/19/19 08:24 Christy Mercer MD Sep 19, 2019 12:11
--- NOTE | 2019-09-19 12:56 | Nephrology Progress Note ---
Assessment/Plan Problem List: (1) ESRD (end stage renal disease) on dialysis (2) Anemia (3) HTN (hypertension) (4) Diabetes mellitus (5) CHF (congestive heart failure) (6) Bacteremia Plan HD today follow labs cont Epogen abxs DC catheter ? Subjective Subjective In NAD Objective Objective Last 24 Hour Vital Signs Date Time Temp Pulse Resp B/P (MAP) Pulse Ox O2 Delivery O2 Flow Rate FiO2 09/19/19 12:00 98.7 71 19 108/54 (72) 96 09/19/19 12:00 56 09/19/19 09:00 Nasal Cannula 2.0 09/19/19 08:48 114/64 09/19/19 08:47 114/64 09/19/19 08:47 76 114/64 09/19/19 08:00 72 09/19/19 08:00 98.1 76 19 114/64 (81) 96 09/19/19 04:00 72 09/19/19 04:00 98.0 70 18 100/67 (78) 95 09/19/19 00:00 69 09/19/19 00:00 98.2 69 20 108/45 (66) 92 09/18/19 21:00 Nasal Cannula 2.0 09/18/19 20:53 68 131/59 09/18/19 20:00 70 09/18/19 20:00 99.7 68 20 131/59 (83) 92 09/18/19 17:57 100.8 09/18/19 17:06 143/73 09/18/19 17:06 143/73 09/18/19 16:00 101.8 72 19 143/73 (96) 93 09/18/19 16:00 74 Intake and Output 09/18/19 09/19/19 19:00 07:00 Intake Total 480 ml 570.0 ml Balance 480 ml 570.0 ml Intake Oral 480 ml 240 ml IV Total 330.0 ml # Voids 1 Laboratory Tests 09/19/19 05:33: White Blood Count 11.9H, Red Blood Count 2.62L, Hemoglobin 7.7L, Hematocrit 24.9L, Mean Corpuscular Volume 95, Mean Corpuscular Hemoglobin 29.3, Mean Corpuscular Hemoglobin Concent 30.9L, Red Cell Distribution Width 15.3H, Platelet Count 100L, Mean Platelet Volume 5.7L, Neutrophils (%) (Auto) , Lymphocytes (%) (Auto) , Monocytes (%) (Auto) , Eosinophils (%) (Auto) , Basophils (%) (Auto) , Sodium Level 139, Potassium Level 4.4, Chloride Level 100 , Carbon Dioxide Level 26, Anion Gap 13, Blood Urea Nitrogen 66H, Creatinine 6.3H, Estimat Glomerular Filtration Rate 9.1, Glucose Level 123H, Calcium Level 9.8, Total Bilirubin 1.5H, Direct Bilirubin 1.1H, Aspartate Amino Transf (AST/ SGOT) 173H, Alanine Aminotransferase (ALT/SGPT) 131H, Alkaline Phosphatase 572H , Total Protein 7.5, Albumin 2.2L, Globulin 5.3, Albumin/Globulin Ratio 0.4L Height (Feet): 5 Height (Inches): 8.00 Weight (Pounds): 187 Cardiovascular: normal rate Respiratory/Chest: lungs clear Justin Hutson MD Sep 19, 2019 12:56
--- NOTE | 2019-09-19 15:05 | Cardiology Report ---
APPROVED REPORT EKG Measurement Heart [id number] Sinus rhythm with 1st degree AV block Nonspecific T wave abnormality Abnormal ECG
[2019-09-19 16:00] VITALS: BP 139/65
--- NOTE | 2019-09-19 16:45 | Infectious Diseases Prog Note ---
Assessment/Plan Assessment/Plan Assessment: Probable sepsis Gram positive bacteremia- ?real vs contaminant -09/18 Bcx 2/2 GPC clusters (from HD cath) MIld leukocytosis, imrpoving - ?reactive. No apparent infectious process at present Fever -09/18 CXR: Worsening interstitial edema -09/14 CXR: . Unchanged right IJ approach dual-lumen catheter, tip near the cavoatrial junction. Similar-appearing, perhaps mildly improved right small- moderate and left small pleural effusions with passive atelectasis or consolidation, correlate clinically. Unchanged cardiomegaly. Unchanged low lung volumes. 09/14 Bcx NTD CHF exacerbation Troponinemia Elevated LFts; increasing -Abd US: Portal hypertension suspected with ascites, splenomegaly and abnormal Doppler evaluation of the main portal vein. Thickened gallbladder wall nonspecific. Mild ascites. Splenomegaly. 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 Left kidney not seen well. HTN GERD Dm2 c/w nephropathy neuropathy and gastroparesis severe CM w/ EF 15-20% ESRD on HD MWF via R side permacath [facility] resident Plan: -Cont empiric IV Vancomycin #2 pending ID and sensi GPC in blood culture -d/c Cefepime #2 -f/u cx -Monitor CBC/CMP, temperaturese -Cdiff if diarrhea -hep panel -repeat Bcx x2 -May need HD cath removal Thank you for this consultation. Will continue to follow along with you. Discussed with RN Subjective Allergies: Coded Allergies: No Known Allergies (Unverified , 07/06/19) Subjective Tm 101.8; afebrile in ~24hrs Objective Vital Signs Last 24 Hour Vital Signs Date Time Temp Pulse Resp B/P (MAP) Pulse Ox O2 Delivery O2 Flow Rate FiO2 09/19/19 16:00 96.9 86 20 139/65 (89) 98 09/19/19 12:00 98.7 71 19 108/54 (72) 96 09/19/19 12:00 56 09/19/19 09:00 Nasal Cannula 2.0 09/19/19 08:48 114/64 09/19/19 08:47 114/64 09/19/19 08:47 76 114/64 09/19/19 08:00 72 09/19/19 08:00 98.1 76 19 114/64 (81) 96 09/19/19 04:00 72 09/19/19 04:00 98.0 70 18 100/67 (78) 95 09/19/19 00:00 69 09/19/19 00:00 98.2 69 20 108/45 (66) 92 09/18/19 21:00 Nasal Cannula 2.0 09/18/19 20:53 68 131/59 09/18/19 20:00 70 09/18/19 20:00 99.7 68 20 131/59 (83) 92 09/18/19 17:57 100.8 09/18/19 17:06 143/73 09/18/19 17:06 143/73 Height (Feet): 5 Height (Inches): 8.00 Weight (Pounds): 187 Objective GENERAL: The patient is awake and responsive, in no acute distress. HEAD AND NECK: Pupils are equally reactive to light. Extraocular movements intact. Neck was supple. Positive JVD. LUNGS: Good air entry. No wheezing or rhonchi. Decreased air in the bases. HEART: S1, S2. Distant heart sounds. No murmur or gallop. Chest wall has a PermCath. No sign of infection. ABDOMEN: Soft, nondistended, and nontender. Positive bowel sounds. EXTREMITIES: +3 edema in bilateral lower extremity. No cyanosis or clubbing. PELVIC: Scrotum has edema and penile edema was noted. Microbiology Date/Time Source Procedure Growth Status 09/18/19 17:30 Blood Blood Culture - Preliminary Resulted Laboratory Tests Test 09/19/19 05:33 White Blood Count 11.9 K/UL (4.8-10.8) H Red Blood Count 2.62 M/UL (4.70-6.10) L Hemoglobin 7.7 G/DL (14.2-18.0) L Hematocrit 24.9 % (42.0-52.0) L Mean Corpuscular Volume 95 FL (80-99) Mean Corpuscular Hemoglobin 29.3 PG (27.0-31.0) Mean Corpuscular Hemoglobin Concent 30.9 G/DL (32.0-36.0) L Red Cell Distribution Width 15.3 % (11.6-14.8) H Platelet Count 100 K/UL (150-450) L Mean Platelet Volume 5.7 FL (6.5-10.1) L Neutrophils (%) (Auto) % (45.0-75.0) Lymphocytes (%) (Auto) % (20.0-45.0) Monocytes (%) (Auto) % (1.0-10.0) Eosinophils (%) (Auto) % (0.0-3.0) Basophils (%) (Auto) % (0.0-2.0) Sodium Level 139 MMOL/L (136-145) Potassium Level 4.4 MMOL/L (3.5-5.1) Chloride Level 100 MMOL/L (98-107) Carbon Dioxide Level 26 MMOL/L (21-32) Anion Gap 13 mmol/L (5-15) Blood Urea Nitrogen 66 mg/dL (7-18) H Creatinine 6.3 MG/DL (0.55-1.30) H Estimat Glomerular Filtration Rate 9.1 mL/min (>60) Glucose Level 123 MG/DL (74-106) H Calcium Level 9.8 MG/DL (8.5-10.1) Total Bilirubin 1.5 MG/DL (0.2-1.0) H Direct Bilirubin 1.1 MG/DL (0.0-0.3) H Aspartate Amino Transf (AST/SGOT) 173 U/L (15-37) H Alanine Aminotransferase (ALT/SGPT) 131 U/L (12-78) H Alkaline Phosphatase 572 U/L (46-116) H Total Protein 7.5 G/DL (6.4-8.2) Albumin 2.2 G/DL (3.4-5.0) L Globulin 5.3 g/dL Albumin/Globulin Ratio 0.4 (1.0-2.7) L Current Medications Medications (Trade) Dose Ordered Sig/Trav Route PRN Reason Start Time Stop Time Status Last Admin Dose Admin Acetaminophen (Tylenol) 500 mg Q6H PRN ORAL Mild Pain (Pain Scale 1-3) 09/15/19 00:15 10/14/19 22:59 09/18/19 17:06 Acetaminophen (Tylenol) 650 mg Q4H PRN ORAL Mild Pain (Pain Scale 1-3) 09/14/19 23:00 10/14/19 22:59 09/19/19 11:43 Aspirin (ASA) 81 mg DAILY ORAL 09/15/19 09:00 10/15/19 08:59 09/19/19 08:24 Atorvastatin Calcium (Lipitor) 20 mg BEDTIME ORAL 09/15/19 21:00 10/15/19 20:59 09/18/19 20:52 Carvedilol (Coreg) 12.5 mg EVERY 12 HOURS ORAL 09/15/19 09:00 10/15/19 08:59 09/18/19 20:53 Cefepime HCl 1 gm/ Dextrose 55 ml @ 110 mls/hr Q24H IVPB 09/18/19 21:00 09/25/19 20:59 09/18/19 20:43 Clonidine HCl (Catapres Tab) 0.1 mg EVERY 4 HOURS PRN ORAL For High Blood Pressure 09/15/19 01:00 10/15/19 00:59 Dextrose (Dextrose 50%) 25 ml Q30M PRN IV Hypoglycemia 09/14/19 23:00 10/14/19 22:59 Dextrose (Dextrose 50%) 50 ml Q30M PRN IV Hypoglycemia 09/14/19 23:00 10/14/19 22:59 Diphenhydramine HCl (Benadryl) 25 mg Q6H PRN ORAL Itching/Pruritis 09/14/19 23:00 10/14/19 22:59 Docusate Sodium (Colace) 100 mg BID ORAL 09/15/19 09:00 10/15/19 08:59 09/19/19 08:24 Epoetin Garrett (Epoetin Garrett(ESRD on dialysis)) 3,000 unit SUBQ 09/17/19 21:00 10/17/19 20:59 09/17/19 21:44 Epoetin Garrett (Epoetin Garrett(ESRD on dialysis)) 4,000 unit SUBQ 09/17/19 21:00 10/17/19 20:59 09/17/19 21:44 Famotidine (Pepcid) 20 mg DAILY ORAL 09/15/19 09:00 10/15/19 08:59 09/19/19 08:24 Heparin Sodium (Porcine) (Heparin 5000 units/ml) 5,000 units EVERY 12 HOURS SUBQ 09/15/19 13:45 10/15/19 13:44 Heparin Sodium (Porcine) (Heparin Sod 1000 units/ml 10ml) 2,000 unit ONCE PRN IV dialysis 09/19/19 12:00 09/19/19 23:59 Heparin Sodium (Porcine) (Heparin) 1,000 unit POSTHD INJ 09/19/19 12:00 09/19/19 23:59 Hydralazine HCl (Apresoline) 25 mg BID ORAL 09/15/19 18:00 10/15/19 08:59 09/18/19 17:06 Insulin Aspart (NovoLOG) BEFORE MEALS AND HS SUBQ 09/15/19 06:30 10/15/19 06:29 09/19/19 06:02 Isosorbide Dinitrate (Isordil) 10 mg BID ORAL 09/15/19 18:00 10/15/19 17:59 09/18/19 17:06 Lorazepam (Ativan 2mg/ml 1ml) 0.5 mg Q6H PRN IV For Anxiety 09/16/19 00:45 09/23/19 00:44 09/16/19 00:51 Morphine Sulfate (Morphine Sulfate) 1 mg Q4HR PRN IVP For Pain 09/14/19 23:00 09/21/19 22:59 Morphine Sulfate (Morphine Sulfate) 2 mg Q4HR PRN IVP Severe Pain (Pain Scale 7-10) 09/14/19 23:00 09/21/19 22:59 09/17/19 11:15 Nitroglycerin (Ntg) 0.4 mg Q5M PRN SL Prn Chest Pain 09/14/19 23:00 10/14/19 22:59 09/15/19 11:03 Ondansetron HCl (Zofran) 4 mg Q6H PRN ORAL Nausea & Vomiting 09/14/19 23:00 10/14/19 22:59 Pantoprazole (Protonix) 40 mg DAILY ORAL 09/15/19 09:00 10/15/19 08:59 09/19/19 08:24 Polyethylene Glycol (Miralax) 17 gm BEDTIME PRN ORAL Constipation 09/14/19 23:00 10/14/19 22:59 Polyethylene Glycol (Miralax) 17 gm DAILYPRN PRN ORAL Constipation 09/14/19 23:00 10/14/19 22:59 Prochlorperazine (Compazine) 10 mg Q6H PRN IVP Nausea & Vomiting 09/14/19 23:00 10/14/19 22:59 Sodium Chloride 1,000 ml @ 500 mls/hr Q2H PRN IVLG sbp<90 during hd 09/19/19 11:59 09/19/19 23:59 Triamcinolone (Kenalog) 1 applic TID TOPIC 09/15/19 09:00 10/15/19 08:59 09/19/19 13:08 Vancomycin HCl (Vanco rx to dose) 1 ea DAILY PRN MISC Per rx protocol 09/18/19 19:15 10/18/19 19:14 Vitamin B Complex/ Vit C/Folic Acid (Nephrovite) 1 tab DAILY ORAL 09/15/19 09:00 10/15/19 08:59 09/19/19 08:24 Leila Granado M.D. Sep 19, 2019 16:45
--- NOTE | 2019-09-19 19:25 | NUR ---
OBTAINED REPORT FROM CHARITY HARDY. PT RESTING IN BED.
--- NOTE | 2019-09-19 19:27 | NUR ---
HAND-OFF: Report given to Gianna Causey. Patient stable. Plan of care endorsed.
[2019-09-19 20:00] VITALS: BP 105/60
[2019-09-19] MEDS: Epoetin Alfa-EPBX(ESRD on dialysis)3000 units/ml vial SUBQ SCH (20:50)
[2019-09-19] MEDS: Epoetin Alfa-EPBX(ESRD on dialysis)4000 units/ml vial SUBQ SCH (20:51)
[2019-09-19] MEDS: Atorvastatin 20mg tab ORAL SCH (20:56)
[2019-09-19] MEDS ORDERED: Vancomycin 1gm/D5W 275ml IVPB ONE ×2 (21:00)
[2019-09-20] VITALS: BP 109/60
[2019-09-20 04:00] VITALS: BP 110/60
[2019-09-20] MEDS: NovoLOG Insulin Flexpen SUBQ SCH ×4 (05:41→22:31)
--- NOTE | 2019-09-20 05:52 | NUR ---
SPOKE WITH MD SANTILLAN AND WAS MADE AWARE PT'S HEART RATE DROPPED LOW 38 DURING CHROME PLATER. MADE AWARE OF THE FOLLOWING RHYTHM STRIP INTERPRETATIONS THAT HAVE OCCURRED DURING SHIFT: 2ND DEGREE AVB (TYPE 1 WENCHEBACK), SB WITH 1ST DEGREE AVB. NO NEW ORDERS. CONTINUE TO MONITOR CLOSELY. PT FREE FROM APPARENT DISTRESS.
[2019-09-20 06:51] LABS: HEMATOCRIT 24.5 % (42.0-52.0); HEMOGLOBIN 7.7 G/DL (14.2-18.0); MEAN CORPUSCULAR VOLUME 94 FL (80-99); PLATELET COUNT 103 K/UL (150-450); RED CELL DISTRIBUTION WIDTH 15.9 % (11.6-14.8); WHITE BLOOD COUNT 12.4 K/UL (4.8-10.8)
--- NOTE | 2019-09-20 07:00 | NUR ---
GAVE FULL REPORT TO FRANK. PT RESTING IN BED FREE FROM APPARENT DISTRESS.
[2019-09-20 07:25] LABS: ALANINE AMINOTRANSFERASE 133 U/L (12-78); ALBUMIN/GLOBULIN RATIO 0.4 (1.0-2.7); ALKALINE PHOSPHATASE 522 U/L (46-116); ANION GAP 11 mmol/L (5-15); ASPARTATE AMINO TRANSFERASE 142 U/L (15-37); BILIRUBIN,TOTAL 1.3 MG/DL (0.2-1.0); BLOOD UREA NITROGEN 56 mg/dL (7-18); CALCIUM 9.7 MG/DL (8.5-10.1); CARBON DIOXIDE 28 MMOL/L (21-32); CHLORIDE 100 MMOL/L (98-107); CREATININE 5.4 MG/DL (0.55-1.30); POTASSIUM 4.2 MMOL/L (3.5-5.1); SODIUM 138 MMOL/L (136-145)
[2019-09-20 07:27] LABS: BILIRUBIN,DIRECT 0.9 MG/DL (0.0-0.3)
--- NOTE | 2019-09-20 07:39 | NUR ---
NURSE NOTES: pt in bed having breakfast, very quiet. Bed is locked and in lowest position. Call light within reach. 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 Will continue to monitor pt and labs.
[2019-09-20 08:05] VITALS: BP 116/90
--- NOTE | 2019-09-20 08:31 | Cardiac Electrophysiology PN ---
Assessment/Plan Assessment/Plan 1. Troponin elevation but levels are flat, likely due to renal failure Continue aspirin, Coreg and Lipitor 2. Severe cardiomyopathy with EF of 15% to 20%. Refused echo again. Continue Coreg, hydralazine, HD and Isordil. If the ejection fraction remains less than 30%, will need defibrillator implantation. 3. Hypertension. Continue current heart failure therapy. 4. Bradycardia. Needs Dual chamber pacer/ICD 5. End-stage renal disease, on hemodialysis. 6. Diabetes. AFSHAN RN Subjective Subjective In SR with first degree AVB.Had fátima down to 38 yesterday with Wenckebach. No CP or SOB. Objective Last 24 Hour Vital Signs Date Time Temp Pulse Resp B/P (MAP) Pulse Ox O2 Delivery O2 Flow Rate FiO2 09/20/19 08:05 97.5 46 20 116/90 (99) 97 09/20/19 04:00 98.0 62 18 110/60 (77) 95 09/20/19 04:00 53 09/20/19 00:00 43 09/20/19 00:00 97.6 60 20 109/60 (76) 95 09/19/19 20:55 60 105/60 09/19/19 20:00 Nasal Cannula 2.0 09/19/19 20:00 61 09/19/19 20:00 97.5 60 18 105/60 (75) 95 09/19/19 17:23 139/65 09/19/19 17:22 139/65 09/19/19 16:00 62 09/19/19 16:00 96.9 86 20 139/65 (89) 98 09/19/19 12:00 98.7 71 19 108/54 (72) 96 09/19/19 12:00 56 09/19/19 09:00 Nasal Cannula 2.0 09/19/19 08:48 114/64 09/19/19 08:47 114/64 09/19/19 08:47 76 114/64 Intake and Output 09/19/19 09/20/19 19:00 07:00 Intake Total 0 ml Output Total 1900 ml Balance -1900 ml Intake Oral 0 ml Output Urine Total 400 ml Hemodialysis UF 1500 ml # Voids 1 Laboratory Tests Test 09/19/19 18:13 09/20/19 05:20 Random Vancomycin Level 15.5 ug/mL White Blood Count 12.4 K/UL (4.8-10.8) H Red Blood Count 2.60 M/UL (4.70-6.10) L Hemoglobin 7.7 G/DL (14.2-18.0) L Hematocrit 24.5 % (42.0-52.0) L Mean Corpuscular Volume 94 FL (80-99) Mean Corpuscular Hemoglobin 29.6 PG (27.0-31.0) Mean Corpuscular Hemoglobin Concent 31.4 G/DL (32.0-36.0) L Red Cell Distribution Width 15.9 % (11.6-14.8) H Platelet Count 103 K/UL (150-450) L Mean Platelet Volume 5.3 FL (6.5-10.1) L Neutrophils (%) (Auto) % (45.0-75.0) Lymphocytes (%) (Auto) % (20.0-45.0) Monocytes (%) (Auto) % (1.0-10.0) Eosinophils (%) (Auto) % (0.0-3.0) Basophils (%) (Auto) % (0.0-2.0) Differential Total Cells Counted 100 Neutrophils % (Manual) 87 % (45-75) H Lymphocytes % (Manual) 5 % (20-45) L Monocytes % (Manual) 6 % (1-10) Eosinophils % (Manual) 2 % (0-3) Basophils % (Manual) 0 % (0-2) Band Neutrophils 0 % (0-8) Platelet Estimate Decreased L Platelet Morphology Normal Hypochromasia 3+ Anisocytosis 1+ Sodium Level 138 MMOL/L (136-145) Potassium Level 4.2 MMOL/L (3.5-5.1) Chloride Level 100 MMOL/L (98-107) Carbon Dioxide Level 28 MMOL/L (21-32) Anion Gap 11 mmol/L (5-15) Blood Urea Nitrogen 56 mg/dL (7-18) H Creatinine 5.4 MG/DL (0.55-1.30) H Estimat Glomerular Filtration Rate 10.8 mL/min (>60) Glucose Level 73 MG/DL (74-106) L Calcium Level 9.7 MG/DL (8.5-10.1) Total Bilirubin 1.3 MG/DL (0.2-1.0) H Direct Bilirubin 0.9 MG/DL (0.0-0.3) H Aspartate Amino Transf (AST/SGOT) 142 U/L (15-37) H Alanine Aminotransferase (ALT/SGPT) 133 U/L (12-78) H Alkaline Phosphatase 522 U/L (46-116) H Pro-B-Type Natriuretic Peptide > 26036 pg/mL (0-125) H Total Protein 7.2 G/DL (6.4-8.2) Albumin 2.0 G/DL (3.4-5.0) L Globulin 5.2 g/dL Albumin/Globulin Ratio 0.4 (1.0-2.7) L Microbiology Date/Time Source Procedure Growth Status 09/18/19 20:25 Blood Blood Culture - Preliminary NO GROWTH AFTER 24 HOURS Resulted 09/18/19 17:30 Blood Blood Culture - Preliminary Staphylococcus Species Resulted Objective HEAD AND NECK: Mild JVD. LUNGS: Decreased breath sounds. CARDIOVASCULAR: Regular S1 and S2 with no gallop or murmur. ABDOMEN: Soft. EXTREMITIES: 2+ pitting edema and scrotal edema. Guero Garcia MD Sep 20, 2019 08:31
[2019-09-20] MEDS: Carvedilol 12.5mg tab ORAL SCH ×2 (09:00→21:00)
[2019-09-20] MEDS: Triamcinolone 0.1% oint TOPIC SCH ×3 (09:00→17:45)
[2019-09-20] MEDS: HydrALAZINE 25mg tab ORAL SCH ×2 (09:00→17:26)
[2019-09-20] MEDS: Heparin 5000 units/ml inj SUBQ SCH ×2 (09:00→21:00)
--- NOTE | 2019-09-20 10:00 | NUR ---
NURSE NOTES: unable to chart for Pt's R [facility]
[2019-09-20] MEDS: Aspirin Baby 81mg ORAL SCH (10:01)
[2019-09-20] MEDS: Nephrovite tab (Rena-Vite) ORAL SCH (10:02)
[2019-09-20] MEDS: Docusate 100mg cap ORAL SCH ×2 (10:02→17:38)
--- NOTE | 2019-09-20 10:57 | Pulmonology Progress Note ---
Assessment/Plan Problems: (1) Pleural effusion, right (2) Bacteremia (3) Pulmonary edema (4) CHF (congestive heart failure) (5) Physical debility (6) Anemia (7) ESRD needing dialysis (8) Diabetes mellitus (9) HTN (hypertension) Assessment/Plan respiratory stable watch effusion, no need for thoracentesis incentive spirometry persistent leukocytosis, ID evaluation reviewed and appreciated on Vancomycin IV respiratory treatment titrate fio2 to sat of 92 HD, MWF symptomatic treatment prbc prn check stool for OB Subjective ROS Limited/Unobtainable: No Constitutional: Reports: no symptoms HEENT: Repors: no symptoms Respiratory: Reports: no symptoms Allergies: Coded Allergies: No Known Allergies (Unverified , 07/06/19) Objective Last 24 Hour Vital Signs Date Time Temp Pulse Resp B/P (MAP) Pulse Ox O2 Delivery O2 Flow Rate FiO2 09/20/19 10:01 109/57 09/20/19 09:00 109/57 09/20/19 09:00 53 109/57 09/20/19 08:05 97.5 46 20 116/90 (99) 97 09/20/19 04:00 98.0 62 18 110/60 (77) 95 09/20/19 04:00 53 09/20/19 00:00 43 09/20/19 00:00 97.6 60 20 109/60 (76) 95 09/19/19 20:55 60 105/60 09/19/19 20:00 Nasal Cannula 2.0 09/19/19 20:00 61 09/19/19 20:00 97.5 60 18 105/60 (75) 95 09/19/19 17:23 139/65 09/19/19 17:22 139/65 09/19/19 16:00 62 09/19/19 16:00 96.9 86 20 139/65 (89) 98 09/19/19 12:00 98.7 71 19 108/54 (72) 96 09/19/19 12:00 56 Intake and Output 09/19/19 09/20/19 19:00 07:00 Intake Total 0 ml Output Total 1900 ml Balance -1900 ml Intake Oral 0 ml Output Urine Total 400 ml Hemodialysis UF 1500 ml # Voids 1 Objective General Appearance: chronically ill looking, pale HEENT: atraumatic Respiratory/Chest: chest wall non-tender, lungs clear Cardiovascular: normal peripheral pulses, regularly irregular Abdomen: normal bowel sounds, no scars Microbiology Date/Time Source Procedure Growth Status 09/18/19 20:25 Blood Blood Culture - Preliminary NO GROWTH AFTER 24 HOURS Resulted 09/18/19 17:30 Blood Blood Culture - Preliminary Staphylococcus Species Resulted Laboratory Tests 09/19/19 18:13: Random Vancomycin Level 15.5 09/20/19 05:20: White Blood Count 12.4H, Red Blood Count 2.60L, Hemoglobin 7.7L, Hematocrit 24.5L, Mean Corpuscular Volume 94, Mean Corpuscular Hemoglobin 29.6, Mean Corpuscular Hemoglobin Concent 31.4L, Red Cell Distribution Width 15.9H, Platelet Count 103L, Mean Platelet Volume 5.3L, Neutrophils (%) (Auto) , Lymphocytes (%) (Auto) , Monocytes (%) (Auto) , Eosinophils (%) (Auto) , Basophils (%) (Auto) , Differential Total Cells Counted 100, Neutrophils % ( Manual) 87H, Lymphocytes % (Manual) 5L, Monocytes % (Manual) 6, Eosinophils % ( Manual) 2, Basophils % (Manual) 0, Band Neutrophils 0, Platelet Estimate DecreasedL, Platelet Morphology Normal, Hypochromasia 3+, Anisocytosis 1+, Sodium Level 138, Potassium Level 4.2, Chloride Level 100, Carbon Dioxide Level 28, Anion Gap 11, Blood Urea Nitrogen 56H, Creatinine 5.4H, Estimat Glomerular Filtration Rate 10.8, Glucose Level 73L, Calcium Level 9.7, Total Bilirubin 1.3H , Direct Bilirubin 0.9H, Aspartate Amino Transf (AST/SGOT) 142H, Alanine Aminotransferase (ALT/SGPT) 133H, Alkaline Phosphatase 522H, Pro-B-Type Natriuretic Peptide > 62892E, Total Protein 7.2, Albumin 2.0L, Globulin 5.2, Albumin/Globulin Ratio 0.4L Current Medications Medications (Trade) Dose Ordered Sig/Trav Route PRN Reason Start Time Stop Time Status Last Admin Dose Admin Acetaminophen (Tylenol) 500 mg Q6H PRN ORAL Mild Pain (Pain Scale 1-3) 09/15/19 00:15 10/14/19 22:59 09/18/19 17:06 Acetaminophen (Tylenol) 650 mg Q4H PRN ORAL Mild Pain (Pain Scale 1-3) 09/14/19 23:00 10/14/19 22:59 09/20/19 04:03 Aspirin (ASA) 81 mg DAILY ORAL 09/15/19 09:00 10/15/19 08:59 09/20/19 10:01 Atorvastatin Calcium (Lipitor) 20 mg BEDTIME ORAL 09/15/19 21:00 10/15/19 20:59 09/18/19 20:52 Carvedilol (Coreg) 12.5 mg EVERY 12 HOURS ORAL 09/15/19 09:00 10/15/19 08:59 09/18/19 20:53 Clonidine HCl (Catapres Tab) 0.1 mg EVERY 4 HOURS PRN ORAL For High Blood Pressure 09/15/19 01:00 10/15/19 00:59 Dextrose (Dextrose 50%) 25 ml Q30M PRN IV Hypoglycemia 09/14/19 23:00 10/14/19 22:59 Dextrose (Dextrose 50%) 50 ml Q30M PRN IV Hypoglycemia 09/14/19 23:00 10/14/19 22:59 Diphenhydramine HCl (Benadryl) 25 mg Q6H PRN ORAL Itching/Pruritis 09/14/19 23:00 10/14/19 22:59 Docusate Sodium (Colace) 100 mg BID ORAL 09/15/19 09:00 10/15/19 08:59 09/20/19 10:02 Epoetin Garrett (Epoetin Garrett(ESRD on dialysis)) 3,000 unit SUBQ 09/17/19 21:00 10/17/19 20:59 09/19/19 20:50 Epoetin Garrett (Epoetin Garrett(ESRD on dialysis)) 4,000 unit TUE- SUBQ 09/17/19 21:00 10/17/19 20:59 09/19/19 20:51 Famotidine (Pepcid) 20 mg DAILY ORAL 09/15/19 09:00 10/15/19 08:59 09/20/19 10:01 Heparin Sodium (Porcine) (Heparin 5000 units/ml) 5,000 units EVERY 12 HOURS SUBQ 09/15/19 13:45 10/15/19 13:44 Hydralazine HCl (Apresoline) 25 mg BID ORAL 09/15/19 18:00 10/15/19 08:59 09/19/19 17:22 Insulin Aspart (NovoLOG) BEFORE MEALS AND HS SUBQ 09/15/19 06:30 10/15/19 06:29 09/19/19 20:55 Isosorbide Dinitrate (Isordil) 10 mg BID ORAL 09/15/19 18:00 10/15/19 17:59 09/20/19 10:01 Lorazepam (Ativan 2mg/ml 1ml) 0.5 mg Q6H PRN IV For Anxiety 09/16/19 00:45 09/23/19 00:44 09/16/19 00:51 Morphine Sulfate (Morphine Sulfate) 1 mg Q4HR PRN IVP For Pain 09/14/19 23:00 09/21/19 22:59 Morphine Sulfate (Morphine Sulfate) 2 mg Q4HR PRN IVP Severe Pain (Pain Scale 7-10) 09/14/19 23:00 09/21/19 22:59 09/17/19 11:15 Nitroglycerin (Ntg) 0.4 mg Q5M PRN SL Prn Chest Pain 09/14/19 23:00 10/14/19 22:59 09/15/19 11:03 Ondansetron HCl (Zofran) 4 mg Q6H PRN ORAL Nausea & Vomiting 09/14/19 23:00 10/14/19 22:59 09/19/19 18:02 Pantoprazole (Protonix) 40 mg DAILY ORAL 09/15/19 09:00 10/15/19 08:59 09/20/19 10:02 Polyethylene Glycol (Miralax) 17 gm BEDTIME PRN ORAL Constipation 09/14/19 23:00 10/14/19 22:59 Polyethylene Glycol (Miralax) 17 gm DAILYPRN PRN ORAL Constipation 09/14/19 23:00 10/14/19 22:59 Prochlorperazine (Compazine) 10 mg Q6H PRN IVP Nausea & Vomiting 09/14/19 23:00 10/14/19 22:59 Triamcinolone (Kenalog) 1 applic TID TOPIC 09/15/19 09:00 10/15/19 08:59 09/19/19 17:26 Vancomycin HCl (Vanco rx to dose) 1 ea DAILY PRN MISC Per rx protocol 09/18/19 19:15 10/18/19 19:14 Vitamin B Complex/ Vit C/Folic Acid (Nephrovite) 1 tab DAILY ORAL 09/15/19 09:00 10/15/19 08:59 09/20/19 10:02 Christy Mercer MD Sep 20, 2019 10:57
--- NOTE | 2019-09-20 11:36 | Internal Med Progress Note ---
Subjective Date of Service: Sep 20, 2019 Physician Name Crisostomo,Kuldip Attending Physician Geovany Roblero MD Current Medications Medications (Trade) Dose Ordered Sig/Trav Route PRN Reason Start Time Stop Time Status Last Admin Dose Admin Acetaminophen (Tylenol) 500 mg Q6H PRN ORAL Mild Pain (Pain Scale 1-3) 09/15/19 00:15 10/14/19 22:59 09/18/19 17:06 Acetaminophen (Tylenol) 650 mg Q4H PRN ORAL Mild Pain (Pain Scale 1-3) 09/14/19 23:00 10/14/19 22:59 09/20/19 04:03 Aspirin (ASA) 81 mg DAILY ORAL 09/15/19 09:00 10/15/19 08:59 09/20/19 10:01 Atorvastatin Calcium (Lipitor) 20 mg BEDTIME ORAL 09/15/19 21:00 10/15/19 20:59 09/18/19 20:52 Carvedilol (Coreg) 12.5 mg EVERY 12 HOURS ORAL 09/15/19 09:00 10/15/19 08:59 09/18/19 20:53 Clonidine HCl (Catapres Tab) 0.1 mg EVERY 4 HOURS PRN ORAL For High Blood Pressure 09/15/19 01:00 10/15/19 00:59 Dextrose (Dextrose 50%) 25 ml Q30M PRN IV Hypoglycemia 09/14/19 23:00 10/14/19 22:59 Dextrose (Dextrose 50%) 50 ml Q30M PRN IV Hypoglycemia 09/14/19 23:00 10/14/19 22:59 Diphenhydramine HCl (Benadryl) 25 mg Q6H PRN ORAL Itching/Pruritis 09/14/19 23:00 10/14/19 22:59 Docusate Sodium (Colace) 100 mg BID ORAL 09/15/19 09:00 10/15/19 08:59 09/20/19 10:02 Epoetin Garrett (Epoetin Garrett(ESRD on dialysis)) 3,000 unit -TUE SUBQ 09/17/19 21:00 10/17/19 20:59 09/19/19 20:50 Epoetin Garrett (Epoetin Garrett(ESRD on dialysis)) 4,000 unit TUE-TUE-TUE SUBQ 09/17/19 21:00 10/17/19 20:59 09/19/19 20:51 Famotidine (Pepcid) 20 mg DAILY ORAL 09/15/19 09:00 10/15/19 08:59 09/20/19 10:01 Heparin Sodium (Porcine) (Heparin 5000 units/ml) 5,000 units EVERY 12 HOURS SUBQ 09/15/19 13:45 10/15/19 13:44 Hydralazine HCl (Apresoline) 25 mg BID ORAL 09/15/19 18:00 10/15/19 08:59 09/19/19 17:22 Insulin Aspart (NovoLOG) BEFORE MEALS AND HS SUBQ 09/15/19 06:30 10/15/19 06:29 09/19/19 20:55 Isosorbide Dinitrate (Isordil) 10 mg BID ORAL 09/15/19 18:00 10/15/19 17:59 09/20/19 10:01 Lorazepam (Ativan 2mg/ml 1ml) 0.5 mg Q6H PRN IV For Anxiety 09/16/19 00:45 09/23/19 00:44 09/16/19 00:51 Morphine Sulfate (Morphine Sulfate) 1 mg Q4HR PRN IVP For Pain 09/14/19 23:00 09/21/19 22:59 Morphine Sulfate (Morphine Sulfate) 2 mg Q4HR PRN IVP Severe Pain (Pain Scale 7-10) 09/14/19 23:00 09/21/19 22:59 09/17/19 11:15 Nitroglycerin (Ntg) 0.4 mg Q5M PRN SL Prn Chest Pain 09/14/19 23:00 10/14/19 22:59 09/15/19 11:03 Ondansetron HCl (Zofran) 4 mg Q6H PRN ORAL Nausea & Vomiting 09/14/19 23:00 10/14/19 22:59 09/19/19 18:02 Pantoprazole (Protonix) 40 mg DAILY ORAL 09/15/19 09:00 10/15/19 08:59 09/20/19 10:02 Polyethylene Glycol (Miralax) 17 gm BEDTIME PRN ORAL Constipation 09/14/19 23:00 10/14/19 22:59 Polyethylene Glycol (Miralax) 17 gm DAILYPRN PRN ORAL Constipation 09/14/19 23:00 10/14/19 22:59 Prochlorperazine (Compazine) 10 mg Q6H PRN IVP Nausea & Vomiting 09/14/19 23:00 10/14/19 22:59 Triamcinolone (Kenalog) 1 applic TID TOPIC 09/15/19 09:00 10/15/19 08:59 09/19/19 17:26 Vancomycin HCl (Vanco rx to dose) 1 ea DAILY PRN MISC Per rx protocol 09/18/19 19:15 10/18/19 19:14 Vitamin B Complex/ Vit C/Folic Acid (Nephrovite) 1 tab DAILY ORAL 09/15/19 09:00 10/15/19 08:59 09/20/19 10:02 Allergies: Coded Allergies: No Known Allergies (Unverified , 07/06/19) ROS Limited/Unobtainable: No Constitutional: Reports: no symptoms HEENT: Reports: no symptoms Cardiovascular: Reports: no symptoms Respiratory: Reports: no symptoms Gastrointestinal/Abdominal: Reports: no symptoms Genitourinary: Reports: no symptoms Neurologic/Psychiatric: Reports: no symptoms Subjective 63 YO M admitted with chest pain. Cover for Int Zhang-dr Roblero Objective Last Vital Signs Date Time Temp Pulse Resp B/P (MAP) Pulse Ox O2 Delivery O2 Flow Rate FiO2 09/20/19 10:01 109/57 09/20/19 09:00 53 09/20/19 08:05 97.5 20 97 09/19/19 20:00 Nasal Cannula 2.0 Laboratory Tests Test 09/19/19 18:13 09/20/19 05:20 Random Vancomycin Level 15.5 ug/mL White Blood Count 12.4 K/UL (4.8-10.8) H Red Blood Count 2.60 M/UL (4.70-6.10) L Hemoglobin 7.7 G/DL (14.2-18.0) L Hematocrit 24.5 % (42.0-52.0) L Mean Corpuscular Volume 94 FL (80-99) Mean Corpuscular Hemoglobin 29.6 PG (27.0-31.0) Mean Corpuscular Hemoglobin Concent 31.4 G/DL (32.0-36.0) L Red Cell Distribution Width 15.9 % (11.6-14.8) H Platelet Count 103 K/UL (150-450) L Mean Platelet Volume 5.3 FL (6.5-10.1) L Neutrophils (%) (Auto) % (45.0-75.0) Lymphocytes (%) (Auto) % (20.0-45.0) Monocytes (%) (Auto) % (1.0-10.0) Eosinophils (%) (Auto) % (0.0-3.0) Basophils (%) (Auto) % (0.0-2.0) Differential Total Cells Counted 100 Neutrophils % (Manual) 87 % (45-75) H Lymphocytes % (Manual) 5 % (20-45) L Monocytes % (Manual) 6 % (1-10) Eosinophils % (Manual) 2 % (0-3) Basophils % (Manual) 0 % (0-2) Band Neutrophils 0 % (0-8) Platelet Estimate Decreased L Platelet Morphology Normal Hypochromasia 3+ Anisocytosis 1+ Sodium Level 138 MMOL/L (136-145) Potassium Level 4.2 MMOL/L (3.5-5.1) Chloride Level 100 MMOL/L (98-107) Carbon Dioxide Level 28 MMOL/L (21-32) Anion Gap 11 mmol/L (5-15) Blood Urea Nitrogen 56 mg/dL (7-18) H Creatinine 5.4 MG/DL (0.55-1.30) H Estimat Glomerular Filtration Rate 10.8 mL/min (>60) Glucose Level 73 MG/DL (74-106) L Calcium Level 9.7 MG/DL (8.5-10.1) Total Bilirubin 1.3 MG/DL (0.2-1.0) H Direct Bilirubin 0.9 MG/DL (0.0-0.3) H Aspartate Amino Transf (AST/SGOT) 142 U/L (15-37) H Alanine Aminotransferase (ALT/SGPT) 133 U/L (12-78) H Alkaline Phosphatase 522 U/L (46-116) H Pro-B-Type Natriuretic Peptide > 05256 pg/mL (0-125) H Total Protein 7.2 G/DL (6.4-8.2) Albumin 2.0 G/DL (3.4-5.0) L Globulin 5.2 g/dL Albumin/Globulin Ratio 0.4 (1.0-2.7) L Microbiology Date/Time Source Procedure Growth Status 09/19/19 12:30 Blood Blood Culture - Preliminary Resulted 09/19/19 12:15 Blood Blood Culture - Preliminary Resulted 09/18/19 20:25 Blood Blood Culture - Preliminary Resulted 09/18/19 17:30 Blood Blood Culture - Preliminary Staphylococcus Species Resulted Intake and Output 09/19/19 09/20/19 19:00 07:00 Intake Total 0 ml Output Total 1900 ml Balance -1900 ml Intake Oral 0 ml Output Urine Total 400 ml Hemodialysis UF 1500 ml # Voids 1 Objective Objective GENERAL: The patient is awake and responsive, in no acute distress. HEAD AND NECK: Pupils are equally reactive to light. Extraocular movements intact. Neck was supple. Positive JVD. LUNGS: Good air entry. No wheezing or rhonchi. Decreased air in the bases. HEART: S1, S2. Distant heart sounds. No murmur or gallop. Chest wall has a PermCath. No sign of infection. ABDOMEN: Soft, nondistended, and nontender. Positive bowel sounds. EXTREMITIES: +3 edema in bilateral lower extremity. No cyanosis or clubbing. PELVIC: Scrotum has edema and penile edema was noted. NEUROLOGIC: Cranial nerves II through XII grossly, unsteady gait. Assessment/Plan Assessment/Plan Assessment/Plan Assessment/Plan ASSESSMENT: 1. Chest pain with mild elevated Troponin, possible acute coronary syndrome. 2. Congestive heart failure with reduced ejection fraction. 3. End-stage renal disease, on hemodialysis, Tuesday, Tuesday, and Tuesday. 4. Diabetes type 2 with diabetic gastroparesis as well as diabetic neuropathy and diabetic nephropathy. 5. Gastroesophageal reflux disease. 6. Hypertension. 7. Mobitz type 1 first-degree AV block. 8. Anasarca. 9. Pedal edema. 10. Severe cardiomyopathy. LVEF=15-20% 11. Systemic hypertension. 12. Dialysis noncompliance. 13. Mitral as well as tricuspid regurgitation. 14. Severe anemia PLAN: On telemetry. Dr. Garcia from Cardiology Electrophysiology consultation; Dr. Mercer, Pulmonary Critical Care; Dr. Justin Hutson from Nephrology. Hemodialysis 09/19/19 Code status at per POLST is DNR. DVT prophylaxis, heparin subcutaneous. Accu-Chek, sliding scale. Transfuse 2 units PRBC Kuldip Crisostomo MD Sep 20, 2019 11:36
[2019-09-20 12:00] VITALS: BP 105/49
--- NOTE | 2019-09-20 12:30 | NUR ---
NURSE NOTES: pt topical ointment is missing pt refused it earlier however he wants it now. Pharmacy was notified.
--- NOTE | 2019-09-20 13:43 | Nephrology Progress Note ---
Assessment/Plan Problem List: (1) ESRD (end stage renal disease) on dialysis (2) Anemia (3) HTN (hypertension) (4) Diabetes mellitus (5) CHF (congestive heart failure) (6) Bacteremia Plan HD tomorrow follow labs cont Epogen abxs DC catheter ? Subjective Subjective In NAD Objective Objective Last 24 Hour Vital Signs Date Time Temp Pulse Resp B/P (MAP) Pulse Ox O2 Delivery O2 Flow Rate FiO2 09/20/19 10:01 109/57 09/20/19 09:00 109/57 09/20/19 09:00 53 109/57 09/20/19 08:05 97.5 46 20 116/90 (99) 97 09/20/19 04:00 98.0 62 18 110/60 (77) 95 09/20/19 04:00 53 09/20/19 00:00 43 09/20/19 00:00 97.6 60 20 109/60 (76) 95 09/19/19 20:55 60 105/60 09/19/19 20:00 Nasal Cannula 2.0 09/19/19 20:00 61 09/19/19 20:00 97.5 60 18 105/60 (75) 95 09/19/19 17:23 139/65 09/19/19 17:22 139/65 09/19/19 16:00 62 09/19/19 16:00 96.9 86 20 139/65 (89) 98 Intake and Output 09/19/19 09/20/19 19:00 07:00 Intake Total 0 ml Output Total 1900 ml Balance -1900 ml Intake Oral 0 ml Output Urine Total 400 ml Hemodialysis UF 1500 ml # Voids 1 Laboratory Tests 09/19/19 18:13: Random Vancomycin Level 15.5 09/20/19 05:20: White Blood Count 12.4H, Red Blood Count 2.60L, Hemoglobin 7.7L, Hematocrit 24.5L, Mean Corpuscular Volume 94, Mean Corpuscular Hemoglobin 29.6, Mean Corpuscular Hemoglobin Concent 31.4L, Red Cell Distribution Width 15.9H, Platelet Count 103L, Mean Platelet Volume 5.3L, Neutrophils (%) (Auto) , Lymphocytes (%) (Auto) , Monocytes (%) (Auto) , Eosinophils (%) (Auto) , Basophils (%) (Auto) , Differential Total Cells Counted 100, Neutrophils % ( Manual) 87H, Lymphocytes % (Manual) 5L, Monocytes % (Manual) 6, Eosinophils % ( Manual) 2, Basophils % (Manual) 0, Band Neutrophils 0, Platelet Estimate DecreasedL, Platelet Morphology Normal, Hypochromasia 3+, Anisocytosis 1+, Sodium Level 138, Potassium Level 4.2, Chloride Level 100, Carbon Dioxide Level 28, Anion Gap 11, Blood Urea Nitrogen 56H, Creatinine 5.4H, Estimat Glomerular Filtration Rate 10.8, Glucose Level 73L, Calcium Level 9.7, Total Bilirubin 1.3H , Direct Bilirubin 0.9H, Aspartate Amino Transf (AST/SGOT) 142H, Alanine Aminotransferase (ALT/SGPT) 133H, Alkaline Phosphatase 522H, Pro-B-Type Natriuretic Peptide > 17381I, Total Protein 7.2, Albumin 2.0L, Globulin 5.2, Albumin/Globulin Ratio 0.4L Height (Feet): 5 Height (Inches): 8.00 Weight (Pounds): 187 Cardiovascular: normal rate Respiratory/Chest: lungs clear Extremities: trace edema Justin Hutson MD Sep 20, 2019 13:43
[2019-09-20] MEDS ORDERED: Heparin Sod 1000 units/ml 10ml IV PRN (14:00)
[2019-09-20 16:00] VITALS: BP 107/49
--- NOTE | 2019-09-20 17:10 | NUR ---
NURSE NOTES: pt IV was infiltrated and needed to give blood. New Iv was inserted on Left F/A 20g. Addendum: 09/20/19 at 1956 by Jade Melvin RN pt IV was infiltrated when IV was DC. IV puncture had a white bed base to it. Proceeded to clean it with alcohol wipes. Site does not show signs of redness and it is not painful to touch or has any of discharge. New Iv was inserted on Left F/A 20g.
--- NOTE | 2019-09-20 19:00 | NUR ---
NURSE NOTES: Received report from ANTONY Hansen, patient in stable condition, AOx3, denies pain at this time, R chest permacath, L hand g20 transfusing pRBC, no A/R noted.VSS, bed low&locked, side rails upx3, call light within reach, will continue to monitor and reassess
[2019-09-20] MEDS ORDERED: NS 275ml ONE (19:28)
[2019-09-20] MEDS ORDERED: Tubing IV Secondary IV ONE (19:28)
--- NOTE | 2019-09-20 19:44 | NUR ---
HAND-OFF: Report given to Rosina/nik, pt in stable condition.
[2019-09-20 20:00] VITALS: BP 121/61
--- NOTE | 2019-09-20 20:00 | NUR ---
NURSE NOTES: Called dialysis center [facility] ([phone]) for 09/21/2019, appointment confirmed Addendum: 09/21/19 at 0454 by ARMAND MENA RN NURSE NOTES: Spoke with Deric Caceres RN will come to dialyze the patient
[2019-09-20] MEDS: Atorvastatin 20mg tab ORAL SCH (22:30)
[2019-09-21] VITALS: BP 134/63
[2019-09-21] MEDS: Acetaminophen 500mg (ES) tab ORAL PRN (01:25)
[2019-09-21 04:00] VITALS: BP 125/59
[2019-09-21] MEDS: NovoLOG Insulin Flexpen SUBQ SCH ×4 (06:35→20:52)
[2019-09-21 06:37] LABS: HEMATOCRIT 32.1 % (42.0-52.0); HEMOGLOBIN 10.2 G/DL (14.2-18.0); MEAN CORPUSCULAR VOLUME 92 FL (80-99); PLATELET COUNT 101 K/UL (150-450); RED BLOOD COUNT 3.49 M/UL (4.70-6.10); RED CELL DISTRIBUTION WIDTH 17.6 % (11.6-14.8); WHITE BLOOD COUNT 14.5 K/UL (4.8-10.8)
[2019-09-21 07:07] LABS: ANION GAP 13 mmol/L (5-15); BLOOD UREA NITROGEN 67 mg/dL (7-18); CALCIUM 9.6 MG/DL (8.5-10.1); CARBON DIOXIDE 26 MMOL/L (21-32); CHLORIDE 98 MMOL/L (98-107); POTASSIUM 4.7 MMOL/L (3.5-5.1); SODIUM 137 MMOL/L (136-145)
--- NOTE | 2019-09-21 07:25 | NUR ---
NURSE NOTES: Received report from Yee/RN, Patient is up on bed, having breakfast. on 2L nasal canula, No acute distress/SOB noted. AAO x 3, Able to make needs known. denies pain at this time. IV site on Left hand, patent, no bleeding or infiltration noted. Bed in low position and locked, Bed alarm engaged, side rails up x3. Call light within reach, Encouraged to use call light when needed. Will continue plan of care.
--- NOTE | 2019-09-21 07:33 | NUR ---
HAND-OFF: Report given to ANTONY Tillman, patient in stable condition, plan of care endorsed.
[2019-09-21 08:00] VITALS: BP 114/59
--- NOTE | 2019-09-21 08:34 | NUR ---
CASE MANAGEMENT: REVIEW 09/21/19 SI: ESRD ON HD . PULMONARY EDEMA . CHF . R.PLEURAL EFFUSION . DM2 98.2 57 20 125/59 96% NC/2L WBC 14.5 RBC 3.49 H/H 10.2/32.1 BUN 67 CREAT 6.0 BNP >68950 BG 123 IS: IV VANCOMYCIN X1 IV CEFEPIME Q24HR ISORDIL PO BID EPOETIN SQ QOD NOVOLOG SQ AC&HS PROTONIX PO QD ASA PO QD NEPHROVITE PO QD KENALOG TP TID : 2E TELE UNIT PLAN: HD TODAY BLOOD TX X2 09/20/19 DCP: PATIENT IS FROM [facility]
--- NOTE | 2019-09-21 08:46 | Cardiac Electrophysiology PN ---
Assessment/Plan Assessment/Plan 1. Troponin elevation but levels are flat, likely due to renal failure Continue aspirin, Coreg and Lipitor 2. Severe cardiomyopathy with EF of 15% to 20%. Repeat preliminary echo showed EF 45%!. Continue Coreg, hydralazine, HD and Isordil. If the final ejection fraction remains less than 30%, will need defibrillator implantation. 3. Hypertension. Continue current heart failure therapy. 4. Bradycardia. 5. End-stage renal disease, on hemodialysis. 6. Diabetes. AFSHAN RN Subjective Subjective In SR with first degree AVB. No CP or SOB. Objective Last 24 Hour Vital Signs Date Time Temp Pulse Resp B/P (MAP) Pulse Ox O2 Delivery O2 Flow Rate FiO2 09/21/19 04:00 98.2 57 20 125/59 (81) 96 09/21/19 04:00 57 09/21/19 00:00 55 09/21/19 00:00 98.5 53 20 134/63 (86) 96 09/20/19 21:00 52 132/60 09/20/19 21:00 Nasal Cannula 2.0 09/20/19 20:00 98.7 57 19 121/61 (81) 95 09/20/19 20:00 55 09/20/19 17:26 106/53 09/20/19 16:30 51 09/20/19 16:00 97.3 57 18 107/49 (68) 94 09/20/19 14:28 Nasal Cannula 2.0 09/20/19 12:00 97.0 54 18 105/49 (67) 95 09/20/19 12:00 53 09/20/19 10:01 109/57 09/20/19 09:00 109/57 09/20/19 09:00 53 109/57 09/20/19 09:00 Nasal Cannula 2.0 Intake and Output 09/20/19 09/21/19 19:00 07:00 Intake Total 360 ml 100 ml Balance 360 ml 100 ml Intake Oral 360 ml 100 ml Laboratory Tests Test 09/21/19 05:28 White Blood Count 14.5 K/UL (4.8-10.8) H Red Blood Count 3.49 M/UL (4.70-6.10) L Hemoglobin 10.2 G/DL (14.2-18.0) #L Hematocrit 32.1 % (42.0-52.0) #L Mean Corpuscular Volume 92 FL (80-99) Mean Corpuscular Hemoglobin 29.3 PG (27.0-31.0) Mean Corpuscular Hemoglobin Concent 31.9 G/DL (32.0-36.0) L Red Cell Distribution Width 17.6 % (11.6-14.8) H Platelet Count 101 K/UL (150-450) L Mean Platelet Volume 5.9 FL (6.5-10.1) L Neutrophils (%) (Auto) % (45.0-75.0) Lymphocytes (%) (Auto) % (20.0-45.0) Monocytes (%) (Auto) % (1.0-10.0) Eosinophils (%) (Auto) % (0.0-3.0) Basophils (%) (Auto) % (0.0-2.0) Neutrophils % (Manual) Pending Lymphocytes % (Manual) Pending Platelet Estimate Pending Platelet Morphology Pending Sodium Level 137 MMOL/L (136-145) Potassium Level 4.7 MMOL/L (3.5-5.1) Chloride Level 98 MMOL/L (98-107) Carbon Dioxide Level 26 MMOL/L (21-32) Anion Gap 13 mmol/L (5-15) Blood Urea Nitrogen 67 mg/dL (7-18) H Creatinine 6.0 MG/DL (0.55-1.30) H Estimat Glomerular Filtration Rate 9.6 mL/min (>60) Glucose Level 123 MG/DL (74-106) H Calcium Level 9.6 MG/DL (8.5-10.1) Pro-B-Type Natriuretic Peptide > 24704 pg/mL (0-125) H Microbiology Date/Time Source Procedure Growth Status 09/19/19 12:30 Blood Blood Culture - Preliminary Staphylococcus Aureus Resulted 09/19/19 12:15 Blood Blood Culture - Preliminary Staphylococcus Aureus Resulted 09/18/19 20:25 Blood Blood Culture - Preliminary Staphylococcus Aureus Resulted 09/18/19 17:30 Blood Blood Culture - Final Staphylococcus Aureus - Mrsa Complete Objective HEAD AND NECK: Mild JVD. LUNGS: Decreased breath sounds. CARDIOVASCULAR: Regular S1 and S2 with no gallop or murmur. ABDOMEN: Soft. EXTREMITIES: 2+ pitting edema and scrotal edema. Guero Garcia MD Sep 21, 2019 08:46
[2019-09-21] MEDS: Nephrovite tab (Rena-Vite) ORAL SCH (08:59)
[2019-09-21] MEDS: Docusate 100mg cap ORAL SCH ×2 (09:00→17:18)
[2019-09-21] MEDS: HydrALAZINE 25mg tab ORAL SCH ×2 (09:00→17:18)
[2019-09-21] MEDS: Heparin 5000 units/ml inj SUBQ SCH ×2 (09:00→20:49)
[2019-09-21] MEDS: Carvedilol 12.5mg tab ORAL SCH ×2 (09:00→20:45)
[2019-09-21] MEDS: Aspirin Baby 81mg ORAL SCH (09:00)
[2019-09-21] MEDS: Triamcinolone 0.1% oint TOPIC SCH ×3 (09:01→17:19)
--- NOTE | 2019-09-21 10:06 | Infectious Diseases Prog Note ---
Assessment/Plan Assessment/Plan Assessment: Sepsis MRSA bacteremia- likely from HD cath- r/o endocarditis -09/18 Bcx 4/4 MRSA (from HD cath); 09/19 BCx 4/4 MRSA (peripheraL) -09/14 2d Echo: no vegetations Leukocytosis, increasing Fever; improving -09/18 CXR: Worsening interstitial edema -09/14 CXR: . Unchanged right IJ approach dual-lumen catheter, tip near the cavoatrial junction. Similar-appearing, perhaps mildly improved right small- moderate and left small pleural effusions with passive atelectasis or consolidation, correlate clinically. Unchanged cardiomegaly. Unchanged low lung volumes. 09/14 Bcx NTD CHF exacerbation Troponinemia Elevated LFts; increasing -Abd US: Portal hypertension suspected with ascites, splenomegaly and abnormal Doppler evaluation of the main portal vein. Thickened gallbladder wall nonspecific. Mild ascites. Splenomegaly. 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 Left kidney not seen well. HTN GERD Dm2 c/w nephropathy neuropathy and gastroparesis severe CM w/ EF 15-20% ESRD on HD MWF via R side permacath [facility] resident Plan: -Cont empiric IV Vancomycin #4 for MRSA bacteremia -09/20 SP Cefepime #2 -Remove HD catheter after dialysis and do line holidy -f/u cx -Monitor CBC/CMP, temperaturese -Cdiff if diarrhea -hep panel, HIV ab -repeat Bcx x2 -JAMES to eval for endocarditis Thank you for this consultation. Will continue to follow along with you. Discussed with RN Subjective Allergies: Coded Allergies: No Known Allergies (Unverified , 07/06/19) Subjective afebrile >48hrs wbc increasing MRSA bacteremia Objective Vital Signs Last 24 Hour Vital Signs Date Time Temp Pulse Resp B/P (MAP) Pulse Ox O2 Delivery O2 Flow Rate FiO2 09/21/19 09:00 114/59 09/21/19 09:00 114/59 09/21/19 09:00 69 114/59 09/21/19 08:00 97.2 69 18 114/59 (77) 93 09/21/19 04:00 98.2 57 20 125/59 (81) 96 09/21/19 04:00 57 09/21/19 00:00 55 09/21/19 00:00 98.5 53 20 134/63 (86) 96 09/20/19 21:00 52 132/60 09/20/19 21:00 Nasal Cannula 2.0 09/20/19 20:00 98.7 57 19 121/61 (81) 95 09/20/19 20:00 55 09/20/19 17:26 106/53 09/20/19 16:30 51 09/20/19 16:00 97.3 57 18 107/49 (68) 94 09/20/19 14:28 Nasal Cannula 2.0 09/20/19 12:00 97.0 54 18 105/49 (67) 95 09/20/19 12:00 53 09/20/19 10:01 109/57 Height (Feet): 5 Height (Inches): 8.00 Weight (Pounds): 195 Objective GENERAL: The patient is awake and responsive, in no acute distress. HEAD AND NECK: Pupils are equally reactive to light. Extraocular movements intact. Neck was supple. Positive JVD. LUNGS: Good air entry. No wheezing or rhonchi. Decreased air in the bases. HEART: S1, S2. Distant heart sounds. No murmur or gallop. Chest wall has a PermCath. No sign of infection. ABDOMEN: Soft, nondistended, and nontender. Positive bowel sounds. EXTREMITIES: +3 edema in bilateral lower extremity. No cyanosis or clubbing. PELVIC: Scrotum has edema and penile edema was noted. Microbiology Date/Time Source Procedure Growth Status 09/19/19 12:30 Blood Blood Culture - Preliminary Staphylococcus Aureus Resulted 09/19/19 12:15 Blood Blood Culture - Preliminary Staphylococcus Aureus Resulted 09/18/19 20:25 Blood Blood Culture - Preliminary Staphylococcus Aureus Resulted 09/18/19 17:30 Blood Blood Culture - Final Staphylococcus Aureus - Mrsa Complete Laboratory Tests Test 09/21/19 05:28 White Blood Count 14.5 K/UL (4.8-10.8) H Red Blood Count 3.49 M/UL (4.70-6.10) L Hemoglobin 10.2 G/DL (14.2-18.0) #L Hematocrit 32.1 % (42.0-52.0) #L Mean Corpuscular Volume 92 FL (80-99) Mean Corpuscular Hemoglobin 29.3 PG (27.0-31.0) Mean Corpuscular Hemoglobin Concent 31.9 G/DL (32.0-36.0) L Red Cell Distribution Width 17.6 % (11.6-14.8) H Platelet Count 101 K/UL (150-450) L Mean Platelet Volume 5.9 FL (6.5-10.1) L Neutrophils (%) (Auto) % (45.0-75.0) Lymphocytes (%) (Auto) % (20.0-45.0) Monocytes (%) (Auto) % (1.0-10.0) Eosinophils (%) (Auto) % (0.0-3.0) Basophils (%) (Auto) % (0.0-2.0) Differential Total Cells Counted 100 Neutrophils % (Manual) 89 % (45-75) H Lymphocytes % (Manual) 3 % (20-45) L Monocytes % (Manual) 6 % (1-10) Eosinophils % (Manual) 2 % (0-3) Basophils % (Manual) 0 % (0-2) Band Neutrophils 0 % (0-8) Platelet Estimate Decreased L Platelet Morphology Normal Anisocytosis 1+ Sodium Level 137 MMOL/L (136-145) Potassium Level 4.7 MMOL/L (3.5-5.1) Chloride Level 98 MMOL/L (98-107) Carbon Dioxide Level 26 MMOL/L (21-32) Anion Gap 13 mmol/L (5-15) Blood Urea Nitrogen 67 mg/dL (7-18) H Creatinine 6.0 MG/DL (0.55-1.30) H Estimat Glomerular Filtration Rate 9.6 mL/min (>60) Glucose Level 123 MG/DL (74-106) H Calcium Level 9.6 MG/DL (8.5-10.1) Pro-B-Type Natriuretic Peptide > 87761 pg/mL (0-125) H Current Medications Medications (Trade) Dose Ordered Sig/Trav Route PRN Reason Start Time Stop Time Status Last Admin Dose Admin Acetaminophen (Tylenol) 500 mg Q6H PRN ORAL Mild Pain (Pain Scale 1-3) 09/15/19 00:15 10/14/19 22:59 09/21/19 01:25 Acetaminophen (Tylenol) 650 mg Q4H PRN ORAL Mild Pain (Pain Scale 1-3) 09/14/19 23:00 10/14/19 22:59 09/20/19 17:37 Aspirin (ASA) 81 mg DAILY ORAL 09/15/19 09:00 10/15/19 08:59 09/21/19 09:00 Atorvastatin Calcium (Lipitor) 20 mg BEDTIME ORAL 09/15/19 21:00 10/15/19 20:59 09/20/19 22:30 Carvedilol (Coreg) 12.5 mg EVERY 12 HOURS ORAL 09/15/19 09:00 10/15/19 08:59 09/18/19 20:53 Clonidine HCl (Catapres Tab) 0.1 mg EVERY 4 HOURS PRN ORAL For High Blood Pressure 09/15/19 01:00 10/15/19 00:59 Dextrose (Dextrose 50%) 25 ml Q30M PRN IV Hypoglycemia 09/14/19 23:00 10/14/19 22:59 Dextrose (Dextrose 50%) 50 ml Q30M PRN IV Hypoglycemia 09/14/19 23:00 10/14/19 22:59 Diphenhydramine HCl (Benadryl) 25 mg Q6H PRN ORAL Itching/Pruritis 09/14/19 23:00 10/14/19 22:59 Docusate Sodium (Colace) 100 mg BID ORAL 09/15/19 09:00 10/15/19 08:59 09/21/19 09:00 Epoetin Garrett (Epoetin Garrett(ESRD on dialysis)) 3,000 unit SUBQ 09/17/19 21:00 10/17/19 20:59 09/19/19 20:50 Epoetin Garrett (Epoetin Garrett(ESRD on dialysis)) 4,000 unit SUBQ 09/17/19 21:00 10/17/19 20:59 09/19/19 20:51 Famotidine (Pepcid) 20 mg DAILY ORAL 09/15/19 09:00 10/15/19 08:59 09/21/19 09:00 Heparin Sodium (Porcine) (Heparin 5000 units/ml) 5,000 units EVERY 12 HOURS SUBQ 09/15/19 13:45 10/15/19 13:44 Heparin Sodium (Porcine) (Heparin Sod 1000 units/ml 10ml) 500 unit ONCE PRN IV FOR HD USE ONLY 09/20/19 14:00 09/22/19 23:59 Hydralazine HCl (Apresoline) 25 mg BID ORAL 09/15/19 18:00 10/15/19 08:59 09/19/19 17:22 Insulin Aspart (NovoLOG) BEFORE MEALS AND HS SUBQ 09/15/19 06:30 10/15/19 06:29 09/21/19 06:35 Isosorbide Dinitrate (Isordil) 10 mg BID ORAL 09/15/19 18:00 10/15/19 17:59 09/21/19 09:00 Lorazepam (Ativan 2mg/ml 1ml) 0.5 mg Q6H PRN IV For Anxiety 09/16/19 00:45 09/23/19 00:44 09/16/19 00:51 Morphine Sulfate (Morphine Sulfate) 1 mg Q4HR PRN IVP For Pain 09/14/19 23:00 09/21/19 22:59 Morphine Sulfate (Morphine Sulfate) 2 mg Q4HR PRN IVP Severe Pain (Pain Scale 7-10) 09/14/19 23:00 09/21/19 22:59 09/17/19 11:15 Nitroglycerin (Ntg) 0.4 mg Q5M PRN SL Prn Chest Pain 09/14/19 23:00 10/14/19 22:59 09/15/19 11:03 Ondansetron HCl (Zofran) 4 mg Q6H PRN ORAL Nausea & Vomiting 09/14/19 23:00 10/14/19 22:59 09/19/19 18:02 Pantoprazole (Protonix) 40 mg DAILY ORAL 09/15/19 09:00 10/15/19 08:59 09/21/19 09:00 Polyethylene Glycol (Miralax) 17 gm BEDTIME PRN ORAL Constipation 09/14/19 23:00 10/14/19 22:59 Polyethylene Glycol (Miralax) 17 gm DAILYPRN PRN ORAL Constipation 09/14/19 23:00 10/14/19 22:59 Prochlorperazine (Compazine) 10 mg Q6H PRN IVP Nausea & Vomiting 09/14/19 23:00 10/14/19 22:59 Sodium Chloride 1,000 ml @ 500 mls/hr Q2H PRN IVLG sbp<90 during hd 09/20/19 14:00 09/22/19 23:59 Triamcinolone (Kenalog) 1 applic TID TOPIC 09/15/19 09:00 10/15/19 08:59 09/21/19 09:01 Vancomycin HCl (Vanco rx to dose) 1 ea DAILY PRN MISC Per rx protocol 09/18/19 19:15 10/18/19 19:14 Vitamin B Complex/ Vit C/Folic Acid (Nephrovite) 1 tab DAILY ORAL 09/15/19 09:00 10/15/19 08:59 09/21/19 08:59 Leila Granado M.D. Sep 21, 2019 10:06
--- NOTE | 2019-09-21 10:08 | NUR ---
NURSE NOTES: Md Granado called to inform Nursing staff that the pt lab came back positive for Bactermia, wants to remove the portacath, to call Md Hutson to let him know, called Md Hutson and left message.
--- NOTE | 2019-09-21 10:55 | NUR ---
NURSE NOTES: Advised Md Garcia that the pt EF was 45-50% and not 15-20%, he said, "No AICD then"
--- NOTE | 2019-09-21 11:34 | Pulmonology Progress Note ---
Assessment/Plan Problems: (1) Pleural effusion, right (2) Bacteremia (3) Pulmonary edema (4) CHF (congestive heart failure) (5) Physical debility (6) Anemia (7) ESRD needing dialysis (8) Diabetes mellitus (9) HTN (hypertension) Assessment/Plan respiratory stable watch effusion, no need for thoracentesis incentive spirometry persistent leukocytosis, and rising on Vancomycin IV respiratory treatment titrate fio2 to sat of 92 HD, MWF symptomatic treatment prbc prn check stool for OB Subjective ROS Limited/Unobtainable: No Constitutional: Reports: no symptoms HEENT: Repors: no symptoms Respiratory: Reports: no symptoms Allergies: Coded Allergies: No Known Allergies (Unverified , 07/06/19) Objective Last 24 Hour Vital Signs Date Time Temp Pulse Resp B/P (MAP) Pulse Ox O2 Delivery O2 Flow Rate FiO2 09/21/19 09:00 114/59 09/21/19 09:00 114/59 09/21/19 09:00 69 114/59 09/21/19 09:00 Nasal Cannula 2.0 09/21/19 08:00 97.2 69 18 114/59 (77) 93 09/21/19 08:00 61 09/21/19 04:00 98.2 57 20 125/59 (81) 96 09/21/19 04:00 57 09/21/19 00:00 55 09/21/19 00:00 98.5 53 20 134/63 (86) 96 09/20/19 21:00 52 132/60 09/20/19 21:00 Nasal Cannula 2.0 09/20/19 20:00 98.7 57 19 121/61 (81) 95 09/20/19 20:00 55 09/20/19 17:26 106/53 09/20/19 16:30 51 09/20/19 16:00 97.3 57 18 107/49 (68) 94 09/20/19 14:28 Nasal Cannula 2.0 09/20/19 12:00 97.0 54 18 105/49 (67) 95 09/20/19 12:00 53 Intake and Output 09/20/19 09/21/19 19:00 07:00 Intake Total 360 ml 100 ml Balance 360 ml 100 ml Intake Oral 360 ml 100 ml Objective General Appearance: chronically ill looking, pale HEENT: atraumatic Respiratory/Chest: chest wall non-tender, lungs clear Cardiovascular: normal peripheral pulses, regularly irregular Abdomen: normal bowel sounds, no scars Microbiology Date/Time Source Procedure Growth Status 09/19/19 12:30 Blood Blood Culture - Preliminary Staphylococcus Aureus Resulted 09/19/19 12:15 Blood Blood Culture - Preliminary Staphylococcus Aureus Resulted 09/18/19 20:25 Blood Blood Culture - Preliminary Staphylococcus Aureus Resulted 09/18/19 17:30 Blood Blood Culture - Final Staphylococcus Aureus - Mrsa Complete Laboratory Tests 09/21/19 05:28: White Blood Count 14.5H, Red Blood Count 3.49L, Hemoglobin 10.2#L, Hematocrit 32.1#L, Mean Corpuscular Volume 92, Mean Corpuscular Hemoglobin 29.3, Mean Corpuscular Hemoglobin Concent 31.9L, Red Cell Distribution Width 17.6H, Platelet Count 101L, Mean Platelet Volume 5.9L, Neutrophils (%) (Auto) , Lymphocytes (%) (Auto) , Monocytes (%) (Auto) , Eosinophils (%) (Auto) , Basophils (%) (Auto) , Differential Total Cells Counted 100, Neutrophils % ( Manual) 89H, Lymphocytes % (Manual) 3L, Monocytes % (Manual) 6, Eosinophils % ( Manual) 2, Basophils % (Manual) 0, Band Neutrophils 0, Platelet Estimate DecreasedL, Platelet Morphology Normal, Anisocytosis 1+, Sodium Level 137, Potassium Level 4.7, Chloride Level 98, Carbon Dioxide Level 26, Anion Gap 13, Blood Urea Nitrogen 67H, Creatinine 6.0H, Estimat Glomerular Filtration Rate 9.6 , Glucose Level 123H, Calcium Level 9.6, Pro-B-Type Natriuretic Peptide > 78571R Current Medications Medications (Trade) Dose Ordered Sig/Trav Route PRN Reason Start Time Stop Time Status Last Admin Dose Admin Acetaminophen (Tylenol) 500 mg Q6H PRN ORAL Mild Pain (Pain Scale 1-3) 09/15/19 00:15 10/14/19 22:59 09/21/19 01:25 Acetaminophen (Tylenol) 650 mg Q4H PRN ORAL Mild Pain (Pain Scale 1-3) 09/14/19 23:00 10/14/19 22:59 09/20/19 17:37 Aspirin (ASA) 81 mg DAILY ORAL 09/15/19 09:00 10/15/19 08:59 09/21/19 09:00 Atorvastatin Calcium (Lipitor) 20 mg BEDTIME ORAL 09/15/19 21:00 10/15/19 20:59 09/20/19 22:30 Carvedilol (Coreg) 12.5 mg EVERY 12 HOURS ORAL 09/15/19 09:00 10/15/19 08:59 09/18/19 20:53 Clonidine HCl (Catapres Tab) 0.1 mg EVERY 4 HOURS PRN ORAL For High Blood Pressure 09/15/19 01:00 10/15/19 00:59 Dextrose (Dextrose 50%) 25 ml Q30M PRN IV Hypoglycemia 09/14/19 23:00 10/14/19 22:59 Dextrose (Dextrose 50%) 50 ml Q30M PRN IV Hypoglycemia 09/14/19 23:00 10/14/19 22:59 Diphenhydramine HCl (Benadryl) 25 mg Q6H PRN ORAL Itching/Pruritis 09/14/19 23:00 10/14/19 22:59 Docusate Sodium (Colace) 100 mg BID ORAL 09/15/19 09:00 10/15/19 08:59 09/21/19 09:00 Epoetin Garrett (Epoetin Garrett(ESRD on dialysis)) 3,000 unit SUBQ 09/17/19 21:00 10/17/19 20:59 09/19/19 20:50 Epoetin Garrett (Epoetin Garrett(ESRD on dialysis)) 4,000 unit SUBQ 09/17/19 21:00 10/17/19 20:59 09/19/19 20:51 Famotidine (Pepcid) 20 mg DAILY ORAL 09/15/19 09:00 10/15/19 08:59 09/21/19 09:00 Heparin Sodium (Porcine) (Heparin 5000 units/ml) 5,000 units EVERY 12 HOURS SUBQ 09/15/19 13:45 10/15/19 13:44 Heparin Sodium (Porcine) (Heparin Sod 1000 units/ml 10ml) 500 unit ONCE PRN IV FOR HD USE ONLY 09/20/19 14:00 09/22/19 23:59 Hydralazine HCl (Apresoline) 25 mg BID ORAL 09/15/19 18:00 10/15/19 08:59 09/19/19 17:22 Insulin Aspart (NovoLOG) BEFORE MEALS AND HS SUBQ 09/15/19 06:30 10/15/19 06:29 09/21/19 06:35 Isosorbide Dinitrate (Isordil) 10 mg BID ORAL 09/15/19 18:00 10/15/19 17:59 09/21/19 09:00 Lorazepam (Ativan 2mg/ml 1ml) 0.5 mg Q6H PRN IV For Anxiety 09/16/19 00:45 09/23/19 00:44 09/16/19 00:51 Morphine Sulfate (Morphine Sulfate) 1 mg Q4HR PRN IVP For Pain 09/14/19 23:00 09/21/19 22:59 Morphine Sulfate (Morphine Sulfate) 2 mg Q4HR PRN IVP Severe Pain (Pain Scale 7-10) 09/14/19 23:00 09/21/19 22:59 09/17/19 11:15 Nitroglycerin (Ntg) 0.4 mg Q5M PRN SL Prn Chest Pain 09/14/19 23:00 10/14/19 22:59 09/15/19 11:03 Ondansetron HCl (Zofran) 4 mg Q6H PRN ORAL Nausea & Vomiting 09/14/19 23:00 10/14/19 22:59 09/19/19 18:02 Pantoprazole (Protonix) 40 mg DAILY ORAL 09/15/19 09:00 10/15/19 08:59 09/21/19 09:00 Polyethylene Glycol (Miralax) 17 gm BEDTIME PRN ORAL Constipation 09/14/19 23:00 10/14/19 22:59 Polyethylene Glycol (Miralax) 17 gm DAILYPRN PRN ORAL Constipation 09/14/19 23:00 10/14/19 22:59 Prochlorperazine (Compazine) 10 mg Q6H PRN IVP Nausea & Vomiting 09/14/19 23:00 10/14/19 22:59 Sodium Chloride 1,000 ml @ 500 mls/hr Q2H PRN IVLG sbp<90 during hd 09/20/19 14:00 09/22/19 23:59 Triamcinolone (Kenalog) 1 applic TID TOPIC 09/15/19 09:00 10/15/19 08:59 09/21/19 09:01 Vancomycin HCl (Vanco rx to dose) 1 ea DAILY PRN MISC Per rx protocol 09/18/19 19:15 10/18/19 19:14 Vitamin B Complex/ Vit C/Folic Acid (Nephrovite) 1 tab DAILY ORAL 09/15/19 09:00 10/15/19 08:59 09/21/19 08:59 Christy Mercer MD Sep 21, 2019 11:34
--- NOTE | 2019-09-21 11:52 | Nephrology Progress Note ---
Assessment/Plan Problem List: (1) ESRD (end stage renal disease) on dialysis (2) Anemia (3) HTN (hypertension) (4) Diabetes mellitus (5) CHF (congestive heart failure) (6) Bacteremia Plan HD today follow labs cont Epogen abxs DC catheter today Discussed with ID Subjective Subjective In NAD Objective Objective Last 24 Hour Vital Signs Date Time Temp Pulse Resp B/P (MAP) Pulse Ox O2 Delivery O2 Flow Rate FiO2 09/21/19 09:00 114/59 09/21/19 09:00 114/59 09/21/19 09:00 69 114/59 09/21/19 09:00 Nasal Cannula 2.0 09/21/19 08:00 97.2 69 18 114/59 (77) 93 09/21/19 08:00 61 09/21/19 04:00 98.2 57 20 125/59 (81) 96 09/21/19 04:00 57 09/21/19 00:00 55 09/21/19 00:00 98.5 53 20 134/63 (86) 96 09/20/19 21:00 52 132/60 09/20/19 21:00 Nasal Cannula 2.0 09/20/19 20:00 98.7 57 19 121/61 (81) 95 09/20/19 20:00 55 09/20/19 17:26 106/53 09/20/19 16:30 51 09/20/19 16:00 97.3 57 18 107/49 (68) 94 09/20/19 14:28 Nasal Cannula 2.0 09/20/19 12:00 97.0 54 18 105/49 (67) 95 09/20/19 12:00 53 Intake and Output 09/20/19 09/21/19 19:00 07:00 Intake Total 360 ml 100 ml Balance 360 ml 100 ml Intake Oral 360 ml 100 ml Laboratory Tests 09/21/19 05:28: White Blood Count 14.5H, Red Blood Count 3.49L, Hemoglobin 10.2#L, Hematocrit 32.1#L, Mean Corpuscular Volume 92, Mean Corpuscular Hemoglobin 29.3, Mean Corpuscular Hemoglobin Concent 31.9L, Red Cell Distribution Width 17.6H, Platelet Count 101L, Mean Platelet Volume 5.9L, Neutrophils (%) (Auto) , Lymphocytes (%) (Auto) , Monocytes (%) (Auto) , Eosinophils (%) (Auto) , Basophils (%) (Auto) , Differential Total Cells Counted 100, Neutrophils % ( Manual) 89H, Lymphocytes % (Manual) 3L, Monocytes % (Manual) 6, Eosinophils % ( Manual) 2, Basophils % (Manual) 0, Band Neutrophils 0, Platelet Estimate DecreasedL, Platelet Morphology Normal, Anisocytosis 1+, Sodium Level 137, Potassium Level 4.7, Chloride Level 98, Carbon Dioxide Level 26, Anion Gap 13, Blood Urea Nitrogen 67H, Creatinine 6.0H, Estimat Glomerular Filtration Rate 9.6 , Glucose Level 123H, Calcium Level 9.6, Pro-B-Type Natriuretic Peptide > 53262J Height (Feet): 5 Height (Inches): 8.00 Weight (Pounds): 195 Cardiovascular: normal rate Respiratory/Chest: lungs clear Extremities: trace edema Justin Hutson MD Sep 21, 2019 11:52
[2019-09-21 12:00] VITALS: BP 149/74
--- NOTE | 2019-09-21 14:13 | Internal Med Progress Note ---
Subjective Date of Service: Sep 21, 2019 Physician Name Crisostomo,Kuldip Attending Physician Geovany Roblero MD Current Medications Medications (Trade) Dose Ordered Sig/Trav Route PRN Reason Start Time Stop Time Status Last Admin Dose Admin Acetaminophen (Tylenol) 500 mg Q6H PRN ORAL Mild Pain (Pain Scale 1-3) 09/15/19 00:15 10/14/19 22:59 09/21/19 01:25 Acetaminophen (Tylenol) 650 mg Q4H PRN ORAL Mild Pain (Pain Scale 1-3) 09/14/19 23:00 10/14/19 22:59 09/20/19 17:37 Aspirin (ASA) 81 mg DAILY ORAL 09/15/19 09:00 10/15/19 08:59 09/21/19 09:00 Atorvastatin Calcium (Lipitor) 20 mg BEDTIME ORAL 09/15/19 21:00 10/15/19 20:59 09/20/19 22:30 Carvedilol (Coreg) 12.5 mg EVERY 12 HOURS ORAL 09/15/19 09:00 10/15/19 08:59 09/18/19 20:53 Clonidine HCl (Catapres Tab) 0.1 mg EVERY 4 HOURS PRN ORAL For High Blood Pressure 09/15/19 01:00 10/15/19 00:59 Dextrose (Dextrose 50%) 25 ml Q30M PRN IV Hypoglycemia 09/14/19 23:00 10/14/19 22:59 Dextrose (Dextrose 50%) 50 ml Q30M PRN IV Hypoglycemia 09/14/19 23:00 10/14/19 22:59 Diphenhydramine HCl (Benadryl) 25 mg Q6H PRN ORAL Itching/Pruritis 09/14/19 23:00 10/14/19 22:59 Docusate Sodium (Colace) 100 mg BID ORAL 09/15/19 09:00 10/15/19 08:59 09/21/19 09:00 Epoetin Garrett (Epoetin Garrett(ESRD on dialysis)) 3,000 unit -TUE SUBQ 09/17/19 21:00 10/17/19 20:59 09/19/19 20:50 Epoetin Garrett (Epoetin Garrett(ESRD on dialysis)) 4,000 unit TUE-TUE-TUE SUBQ 09/17/19 21:00 10/17/19 20:59 09/19/19 20:51 Famotidine (Pepcid) 20 mg DAILY ORAL 09/15/19 09:00 10/15/19 08:59 09/21/19 09:00 Heparin Sodium (Porcine) (Heparin 5000 units/ml) 5,000 units EVERY 12 HOURS SUBQ 09/15/19 13:45 10/15/19 13:44 Heparin Sodium (Porcine) (Heparin Sod 1000 units/ml 10ml) 500 unit ONCE PRN IV FOR HD USE ONLY 09/20/19 14:00 09/22/19 23:59 Hydralazine HCl (Apresoline) 25 mg BID ORAL 09/15/19 18:00 10/15/19 08:59 09/19/19 17:22 Insulin Aspart (NovoLOG) BEFORE MEALS AND HS SUBQ 09/15/19 06:30 10/15/19 06:29 09/21/19 12:22 Isosorbide Dinitrate (Isordil) 10 mg BID ORAL 09/15/19 18:00 10/15/19 17:59 09/21/19 09:00 Lorazepam (Ativan 2mg/ml 1ml) 0.5 mg Q6H PRN IV For Anxiety 09/16/19 00:45 09/23/19 00:44 09/16/19 00:51 Morphine Sulfate (Morphine Sulfate) 1 mg Q4HR PRN IVP For Pain 09/14/19 23:00 09/21/19 22:59 Morphine Sulfate (Morphine Sulfate) 2 mg Q4HR PRN IVP Severe Pain (Pain Scale 7-10) 09/14/19 23:00 09/21/19 22:59 09/17/19 11:15 Nitroglycerin (Ntg) 0.4 mg Q5M PRN SL Prn Chest Pain 09/14/19 23:00 10/14/19 22:59 09/15/19 11:03 Ondansetron HCl (Zofran) 4 mg Q6H PRN ORAL Nausea & Vomiting 09/14/19 23:00 10/14/19 22:59 09/19/19 18:02 Pantoprazole (Protonix) 40 mg DAILY ORAL 09/15/19 09:00 10/15/19 08:59 09/21/19 09:00 Polyethylene Glycol (Miralax) 17 gm BEDTIME PRN ORAL Constipation 09/14/19 23:00 10/14/19 22:59 Polyethylene Glycol (Miralax) 17 gm DAILYPRN PRN ORAL Constipation 09/14/19 23:00 10/14/19 22:59 Prochlorperazine (Compazine) 10 mg Q6H PRN IVP Nausea & Vomiting 09/14/19 23:00 10/14/19 22:59 Sodium Chloride 1,000 ml @ 500 mls/hr Q2H PRN IVLG sbp<90 during hd 09/20/19 14:00 09/22/19 23:59 Triamcinolone (Kenalog) 1 applic TID TOPIC 09/15/19 09:00 10/15/19 08:59 09/21/19 12:21 Vancomycin HCl (Vanco rx to dose) 1 ea DAILY PRN MISC Per rx protocol 09/18/19 19:15 10/18/19 19:14 Vitamin B Complex/ Vit C/Folic Acid (Nephrovite) 1 tab DAILY ORAL 09/15/19 09:00 10/15/19 08:59 09/21/19 08:59 Allergies: Coded Allergies: No Known Allergies (Unverified , 07/06/19) ROS Limited/Unobtainable: No Constitutional: Reports: no symptoms HEENT: Reports: no symptoms Cardiovascular: Reports: no symptoms Respiratory: Reports: no symptoms Gastrointestinal/Abdominal: Reports: no symptoms Genitourinary: Reports: no symptoms Neurologic/Psychiatric: Reports: no symptoms Subjective 63 YO M admitted with chest pain. Cover for Int Zhang-dr Roblero Objective Last Vital Signs Date Time Temp Pulse Resp B/P (MAP) Pulse Ox O2 Delivery O2 Flow Rate FiO2 09/21/19 09:00 114/59 09/21/19 09:00 69 09/21/19 09:00 Nasal Cannula 2.0 09/21/19 08:00 97.2 18 93 Laboratory Tests Test 09/21/19 05:28 White Blood Count 14.5 K/UL (4.8-10.8) H Red Blood Count 3.49 M/UL (4.70-6.10) L Hemoglobin 10.2 G/DL (14.2-18.0) #L Hematocrit 32.1 % (42.0-52.0) #L Mean Corpuscular Volume 92 FL (80-99) Mean Corpuscular Hemoglobin 29.3 PG (27.0-31.0) Mean Corpuscular Hemoglobin Concent 31.9 G/DL (32.0-36.0) L Red Cell Distribution Width 17.6 % (11.6-14.8) H Platelet Count 101 K/UL (150-450) L Mean Platelet Volume 5.9 FL (6.5-10.1) L Neutrophils (%) (Auto) % (45.0-75.0) Lymphocytes (%) (Auto) % (20.0-45.0) Monocytes (%) (Auto) % (1.0-10.0) Eosinophils (%) (Auto) % (0.0-3.0) Basophils (%) (Auto) % (0.0-2.0) Differential Total Cells Counted 100 Neutrophils % (Manual) 89 % (45-75) H Lymphocytes % (Manual) 3 % (20-45) L Monocytes % (Manual) 6 % (1-10) Eosinophils % (Manual) 2 % (0-3) Basophils % (Manual) 0 % (0-2) Band Neutrophils 0 % (0-8) Platelet Estimate Decreased L Platelet Morphology Normal Anisocytosis 1+ Sodium Level 137 MMOL/L (136-145) Potassium Level 4.7 MMOL/L (3.5-5.1) Chloride Level 98 MMOL/L (98-107) Carbon Dioxide Level 26 MMOL/L (21-32) Anion Gap 13 mmol/L (5-15) Blood Urea Nitrogen 67 mg/dL (7-18) H Creatinine 6.0 MG/DL (0.55-1.30) H Estimat Glomerular Filtration Rate 9.6 mL/min (>60) Glucose Level 123 MG/DL (74-106) H Calcium Level 9.6 MG/DL (8.5-10.1) Pro-B-Type Natriuretic Peptide > 27580 pg/mL (0-125) H Microbiology Date/Time Source Procedure Growth Status 09/19/19 12:30 Blood Blood Culture - Preliminary Staphylococcus Aureus Resulted 09/19/19 12:15 Blood Blood Culture - Preliminary Staphylococcus Aureus Resulted 09/18/19 20:25 Blood Blood Culture - Preliminary Staphylococcus Aureus Resulted 09/18/19 17:30 Blood Blood Culture - Final Staphylococcus Aureus - Mrsa Complete Intake and Output 09/20/19 09/21/19 19:00 07:00 Intake Total 360 ml 100 ml Balance 360 ml 100 ml Intake Oral 360 ml 100 ml Objective Objective GENERAL: The patient is awake and responsive, in no acute distress. HEAD AND NECK: Pupils are equally reactive to light. Extraocular movements intact. Neck was supple. Positive JVD. LUNGS: Good air entry. No wheezing or rhonchi. Decreased air in the bases. HEART: S1, S2. Distant heart sounds. No murmur or gallop. Chest wall has a PermCath. No sign of infection. ABDOMEN: Soft, nondistended, and nontender. Positive bowel sounds. EXTREMITIES: +3 edema in bilateral lower extremity. No cyanosis or clubbing. PELVIC: Scrotum has edema and penile edema was noted. NEUROLOGIC: Cranial nerves II through XII grossly, unsteady gait. Assessment/Plan Assessment/Plan Assessment/Plan Assessment/Plan ASSESSMENT: 1. Chest pain with mild elevated Troponin, possible acute coronary syndrome. 2. Congestive heart failure with reduced ejection fraction. 3. End-stage renal disease, on hemodialysis, Tuesday, Tuesday, and Tuesday. 4. Diabetes type 2 with diabetic gastroparesis as well as diabetic neuropathy and diabetic nephropathy. 5. Gastroesophageal reflux disease. 6. Hypertension. 7. Mobitz type 1 first-degree AV block. 8. Anasarca. 9. Pedal edema. 10. Severe cardiomyopathy. LVEF=15-20%; repeat=45% 11. Systemic hypertension. 12. Dialysis noncompliance. 13. Mitral as well as tricuspid regurgitation. 14. Severe anemia PLAN: On telemetry. Dr. Garcia from Cardiology Electrophysiology consultation; Dr. Mercer, Pulmonary Critical Care; Dr. Justin Hutson from Nephrology. Hemodialysis 09/21/19 Code status at per POLST is DNR. DVT prophylaxis, heparin subcutaneous. Accu-Chek, sliding scale. S/P Transfusion 2 units PRBC on 09/20/19 Kuldip Crisostomo MD Sep 21, 2019 14:13
--- NOTE | 2019-09-21 15:51 | NUR ---
NURSE NOTES: Called Md Hutson to ask who he wants to consult for the removals of the dialysis catheter lm Addendum: 09/21/19 at 1558 by JET MOTA RN Md Justin Hutson called back and said Md Hurtado could remove it...
[2019-09-21 16:00] VITALS: BP 112/72
--- NOTE | 2019-09-21 16:26 | Consultation ---
History of Present Illness General Date patient seen: Sep 21, 2019 Chief Complaint: Chest Pain Present Illness HPI 63 y/o M with hx of HTN, GERD, Dm2 c/w nephropathy, neuropathy and gastroparesis , severe CM w/ EF 15-20%, ESRD on HD MWF via R side permacath who is a jail resident that presented to [facility] and admitted for care and management. Patient know to be bacteremic with worsening leukocytosis. Was scheduled to have permacath catheter removed but unfortunately has not been done and therefore I was called to evaluate and assist with care on Tuesday afternoon at 4 PM. Patient seen, patient evaluated, chart reviewed patient with worsening leukocytosis bacteremia abnormal labs abnormal LFTs. Unknown coags. Patient history of noncompliance with dialysis in the past. Laying in bed moaning. I discussed the case with the agricultural pilot and plan to remove catheter 48-hour catheter free and replacement of new catheter when ready. Allergies: Coded Allergies: No Known Allergies (Unverified , 07/06/19) Medication History Scheduled Aspirin* (Aspirin*), 81 MG ORAL DAILY, (Reported) Carvedilol (Coreg), 12.5 MG ORAL EVERY 12 HOURS, (Reported) Clonidine Hcl* (Catapres*), 0.1 MG ORAL EVERY 4 HOURS, (Reported) Docusate Sodium* (Docusate Sodium*), 100 MG ORAL TID ON T,TH,S,S, (Reported) Epoetin Garrett (Epogen), 3,000 UNIT SUBQ 3XW M,W,F, (Reported) Escitalopram Oxalate* (Lexapro*), 10 MG ORAL DAILY Famotidine* (Pepcid 20mg tablet*), 20 MG ORAL DAILY, (Reported) Hydralazine HCl (Hydralazine HCl), 10 MG ORAL QID Insulin Aspart (Novolog Flexpen), UNIT SUBQ .SLIDING SCALE, (Reported) Lidocaine (Lidocaine), 1 APPLIC TP TID, (Reported) Terbinafine Hcl (Terbinafine Hcl), 1 APPLIC TP BID, (Reported) Triamcinolone Acetonide (Triamcinolone Acetonide 0.1% Oint*), 1 APPLIC TP TID, ( Reported) Vitamin B Cmplx/Vit C/Folic AC (Nephro-Eduar Tablet), 1 TAB ORAL DAILY, (Reported ) Scheduled PRN Acetaminophen* (Acetaminophen Extra Strength*), 500 MG ORAL Q6H PRN for For Pain Level <=5, (Reported) Acetaminophen* (Acetaminophen 325MG Tablet*), 650 MG ORAL Q6H PRN for PAIN/TEMP, (Reported) Acetaminophen* (Acetaminophen Extra Strength*), 1,000 MG ORAL Q6H PRN for Pain Scale (6-10), (Reported) Diphenhydramine Hcl* (Diphenhydramine Hcl*), 25 MG ORAL Q6H PRN for Itching, ( Reported) Ondansetron (Zofran), 4 MG ORAL Q6H PRN for Nausea & Vomiting, (Reported) Polyethylene Glycol 3350* (Polyethylene Glycol 3350*), 17 GM ORAL BEDTIME PRN for Constipation, (Reported) Discontinued Medications Acetaminophen* (Acetaminophen 325MG Tablet*), 325 MG ORAL Q6H PRN for PAIN 5-7, (Reported) Discontinued Reason: Therapy completed Acetaminophen* (Acetaminophen Extra Strength*), 1,000 MG ORAL Q6H, (Reported) Discontinued Reason: Medication dose changed Aspirin (Aspirin), 81 MG PO DAILY, (Reported) Discontinued Reason: Therapy completed Carvedilol (Coreg), 12.5 MG ORAL EVERY 12 HOURS Discontinued Reason: Therapy completed Clonidine Hcl* (Catapres*), 0.1 MG ORAL EVERY 4 HOURS PRN for SBP>160, (Reported ) Discontinued Reason: Therapy completed Diphenhydramine Hcl* (Benadryl*), 25 MG ORAL Q6H PRN for Itching, (Reported) Discontinued Reason: Therapy completed Docusate Sodium (Docusate Sodium), 100 MG ORAL TID, (Reported) Discontinued Reason: Therapy completed Epoetin Garrett (Epogen), 3,000 UNIT SUBQ 3XW, (Reported) Discontinued Reason: Therapy completed Escitalopram Oxalate (Lexapro), 10 MG ORAL DAILY, (Reported) Discontinued Reason: Therapy completed Famotidine* (Pepcid 20mg tablet*), 20 MG ORAL DAILY Discontinued Reason: Therapy completed Neomycin/Polymyxin/Bacitracin* (Triple Antibiotic Ointment*), 1 APPLIC TOPIC DAILY, (Reported) Discontinued Reason: Therapy completed Ondansetron Odt* (Zofran Odt*), 4 MG BC EVERY 6 HOURS PRN for Nausea & Vomiting, (Reported) Discontinued Reason: Therapy completed Polyethylene Glycol 3350* (Polyethylene Glycol 3350*), 17 GM ORAL BEDTIME PRN for Constipation, (Reported) Discontinued Reason: Therapy completed Vitamin B Cmplx/Vit C/Folic AC (Nephro-Eduar Tablet), 1 TAB ORAL DAILY Discontinued Reason: Therapy completed [Insulin Novolog], (Reported) Discontinued Reason: Therapy completed Patient History Limited by: medical condition History Provided By: Medical Record, PMD Healthcare decision maker Resuscitation status Do Not Resuscitate Advanced Directive on File Past Medical/Surgical History Past Medical/Surgical History: (1) Balanitis (2) Chest pain (3) ESRD (end stage renal disease) on dialysis (4) Bacteremia (5) Hyperkalemia (6) ESRD needing dialysis (7) Anemia (8) HTN (hypertension) (9) Noncompliance with renal dialysis (10) Pleural effusion, right (11) Pulmonary edema (12) Physical debility (13) Diabetes mellitus (14) CHF (congestive heart failure) (15) First degree AV block (16) Mobitz (type) I (Wenckebach's) atrioventricular block Review of Systems All Other Systems: negative except mentioned in HPI Physical Exam General Appearance: no apparent distress Lines, tubes and drains: other HEENT: normocephalic, atraumatic Neck: normal inspection Respiratory/Chest: no respiratory distress, no accessory muscle use Abdomen: soft, no organomegaly, no mass Skin Exam: warm/dry Neurologic: alert, responsive Last 24 Hour Vital Signs Date Time Temp Pulse Resp B/P (MAP) Pulse Ox O2 Delivery O2 Flow Rate FiO2 09/21/19 09:00 114/59 09/21/19 09:00 114/59 09/21/19 09:00 69 114/59 09/21/19 09:00 Nasal Cannula 2.0 09/21/19 08:00 97.2 69 18 114/59 (77) 93 09/21/19 08:00 61 09/21/19 04:00 98.2 57 20 125/59 (81) 96 09/21/19 04:00 57 09/21/19 00:00 55 09/21/19 00:00 98.5 53 20 134/63 (86) 96 09/20/19 21:00 52 132/60 09/20/19 21:00 Nasal Cannula 2.0 09/20/19 20:00 98.7 57 19 121/61 (81) 95 09/20/19 20:00 55 09/20/19 17:26 106/53 09/20/19 16:30 51 Intake and Output 09/20/19 09/21/19 19:00 07:00 Intake Total 360 ml 100 ml Balance 360 ml 100 ml Intake Oral 360 ml 100 ml Laboratory Tests Test 09/21/19 05:28 White Blood Count 14.5 K/UL (4.8-10.8) H Red Blood Count 3.49 M/UL (4.70-6.10) L Hemoglobin 10.2 G/DL (14.2-18.0) #L Hematocrit 32.1 % (42.0-52.0) #L Mean Corpuscular Volume 92 FL (80-99) Mean Corpuscular Hemoglobin 29.3 PG (27.0-31.0) Mean Corpuscular Hemoglobin Concent 31.9 G/DL (32.0-36.0) L Red Cell Distribution Width 17.6 % (11.6-14.8) H Platelet Count 101 K/UL (150-450) L Mean Platelet Volume 5.9 FL (6.5-10.1) L Neutrophils (%) (Auto) % (45.0-75.0) Lymphocytes (%) (Auto) % (20.0-45.0) Monocytes (%) (Auto) % (1.0-10.0) Eosinophils (%) (Auto) % (0.0-3.0) Basophils (%) (Auto) % (0.0-2.0) Differential Total Cells Counted 100 Neutrophils % (Manual) 89 % (45-75) H Lymphocytes % (Manual) 3 % (20-45) L Monocytes % (Manual) 6 % (1-10) Eosinophils % (Manual) 2 % (0-3) Basophils % (Manual) 0 % (0-2) Band Neutrophils 0 % (0-8) Platelet Estimate Decreased L Platelet Morphology Normal Anisocytosis 1+ Sodium Level 137 MMOL/L (136-145) Potassium Level 4.7 MMOL/L (3.5-5.1) Chloride Level 98 MMOL/L (98-107) Carbon Dioxide Level 26 MMOL/L (21-32) Anion Gap 13 mmol/L (5-15) Blood Urea Nitrogen 67 mg/dL (7-18) H Creatinine 6.0 MG/DL (0.55-1.30) H Estimat Glomerular Filtration Rate 9.6 mL/min (>60) Glucose Level 123 MG/DL (74-106) H Calcium Level 9.6 MG/DL (8.5-10.1) Pro-B-Type Natriuretic Peptide > 61778 pg/mL (0-125) H Height (Feet): 5 Height (Inches): 8.00 Weight (Pounds): 195 Medications Current Medications Medications (Trade) Dose Ordered Sig/Trav Route PRN Reason Start Time Stop Time Status Last Admin Dose Admin Acetaminophen (Tylenol) 500 mg Q6H PRN ORAL Mild Pain (Pain Scale 1-3) 09/15/19 00:15 10/14/19 22:59 09/21/19 01:25 Acetaminophen (Tylenol) 650 mg Q4H PRN ORAL Mild Pain (Pain Scale 1-3) 09/14/19 23:00 10/14/19 22:59 09/20/19 17:37 Aspirin (ASA) 81 mg DAILY ORAL 09/15/19 09:00 10/15/19 08:59 09/21/19 09:00 Atorvastatin Calcium (Lipitor) 20 mg BEDTIME ORAL 09/15/19 21:00 10/15/19 20:59 09/20/19 22:30 Carvedilol (Coreg) 12.5 mg EVERY 12 HOURS ORAL 09/15/19 09:00 10/15/19 08:59 09/18/19 20:53 Clonidine HCl (Catapres Tab) 0.1 mg EVERY 4 HOURS PRN ORAL For High Blood Pressure 09/15/19 01:00 10/15/19 00:59 Dextrose (Dextrose 50%) 25 ml Q30M PRN IV Hypoglycemia 09/14/19 23:00 10/14/19 22:59 Dextrose (Dextrose 50%) 50 ml Q30M PRN IV Hypoglycemia 09/14/19 23:00 10/14/19 22:59 Diphenhydramine HCl (Benadryl) 25 mg Q6H PRN ORAL Itching/Pruritis 09/14/19 23:00 10/14/19 22:59 Docusate Sodium (Colace) 100 mg BID ORAL 09/15/19 09:00 10/15/19 08:59 09/21/19 09:00 Epoetin Garrett (Epoetin Garrett(ESRD on dialysis)) 3,000 unit SUBQ 09/17/19 21:00 10/17/19 20:59 09/19/19 20:50 Epoetin Garrett (Epoetin Garrett(ESRD on dialysis)) 4,000 unit SUBQ 09/17/19 21:00 10/17/19 20:59 09/19/19 20:51 Famotidine (Pepcid) 20 mg DAILY ORAL 09/15/19 09:00 10/15/19 08:59 09/21/19 09:00 Heparin Sodium (Porcine) (Heparin 5000 units/ml) 5,000 units EVERY 12 HOURS SUBQ 09/15/19 13:45 10/15/19 13:44 Heparin Sodium (Porcine) (Heparin Sod 1000 units/ml 10ml) 500 unit ONCE PRN IV FOR HD USE ONLY 09/20/19 14:00 09/22/19 23:59 Hydralazine HCl (Apresoline) 25 mg BID ORAL 09/15/19 18:00 10/15/19 08:59 09/19/19 17:22 Insulin Aspart (NovoLOG) BEFORE MEALS AND HS SUBQ 09/15/19 06:30 10/15/19 06:29 09/21/19 12:22 Isosorbide Dinitrate (Isordil) 10 mg BID ORAL 09/15/19 18:00 10/15/19 17:59 09/21/19 09:00 Lorazepam (Ativan 2mg/ml 1ml) 0.5 mg Q6H PRN IV For Anxiety 09/16/19 00:45 09/23/19 00:44 09/16/19 00:51 Morphine Sulfate (Morphine Sulfate) 1 mg Q4HR PRN IVP For Pain 09/14/19 23:00 09/21/19 22:59 09/21/19 14:30 Morphine Sulfate (Morphine Sulfate) 2 mg Q4HR PRN IVP Severe Pain (Pain Scale 7-10) 09/14/19 23:00 09/21/19 22:59 09/17/19 11:15 Nitroglycerin (Ntg) 0.4 mg Q5M PRN SL Prn Chest Pain 09/14/19 23:00 10/14/19 22:59 09/15/19 11:03 Ondansetron HCl (Zofran) 4 mg Q6H PRN ORAL Nausea & Vomiting 09/14/19 23:00 12 22:59 09/19/19 18:02 Pantoprazole (Protonix) 40 mg DAILY ORAL 09/15/19 09:00 10/15/19 08:59 09/21/19 09:00 Polyethylene Glycol (Miralax) 17 gm BEDTIME PRN ORAL Constipation 09/14/19 23:00 10/14/19 22:59 Polyethylene Glycol (Miralax) 17 gm DAILYPRN PRN ORAL Constipation 09/14/19 23:00 10/14/19 22:59 Prochlorperazine (Compazine) 10 mg Q6H PRN IVP Nausea & Vomiting 09/14/19 23:00 10/14/19 22:59 Sodium Chloride 1,000 ml @ 500 mls/hr Q2H PRN IVLG sbp<90 during hd 09/20/19 14:00 09/22/19 23:59 Triamcinolone (Kenalog) 1 applic TID TOPIC 09/15/19 09:00 10/15/19 08:59 09/21/19 12:21 Vancomycin HCl (Vanco rx to dose) 1 ea DAILY PRN MISC Per rx protocol 09/18/19 19:15 10/18/19 19:14 Vitamin B Complex/ Vit C/Folic Acid (Nephrovite) 1 tab DAILY ORAL 09/15/19 09:00 10/15/19 08:59 09/21/19 08:59 Assessment/Plan Problem List: (1) Bacteremia Assessment & Plan: This is a 63-year-old male with multi-medical comorbidities end-stage renal disease on dialysis currently through right tunneled catheter who now has bacteremia MRSA staph aureus and worsening leukocytosis. Was scheduled to have catheter removed and unfortunately is not been done so far and I was called to assist with care and management. Patient seen, patient evaluated, chart reviewed. Given these above findings catheter should be removed as soon as possible if not prior. Furthermore abnormal LFTs with unknown etiology needs further work-up. Pending coags prior to removal of catheter to ensure not coagulopathic and safe for removal Please see procedure note once removed Ultrasound abdomen Trend LFTs IV antibiotics as per infectious disease Trend labs Thank you will follow with recommendations ICD Codes: R78.81 - Bacteremia SNOMED: 1081351 (2) ESRD needing dialysis ICD Codes: N18.6 - End stage renal disease; Z99.2 - Dependence on renal dialysis SNOMED: 33194821 (3) Noncompliance with renal dialysis ICD Codes: Z91.15 - Patient's noncompliance with renal dialysis SNOMED: 512147541983069 (4) Abnormal LFTs Assessment & Plan: The liver is unremarkable. The main portal vein shows abnormal pulsatile waveform with flow both antegrade and retrograde. There is mild ascites. There is a moderate right pleural effusion. No biliary ductal dilatation is identified. There is thickening of the wall the gallbladder. No gallstones are identified. CBD is 6.6 mm. The spleen is enlarged measuring between 13 and 14 cm. Kidneys are echogenic. There is no hydronephrosis appreciated. The left kidney is not well seen. Pancreas is also not well seen. IMPRESSION: Portal hypertension suspected with ascites, splenomegaly and abnormal Doppler evaluation of the main portal vein. Thickened gallbladder wall nonspecific. Mild ascites Splenomegaly Right pleural effusion para graft medical renal disease suspected. Left kidney not seen well. ICD Codes: R94.5 - Abnormal results of liver function studies SNOMED: 228769757 Ciro Hurtado Sep 21, 2019 16:26
--- NOTE | 2019-09-21 18:59 | NUR ---
NURSE NOTES:WOUND CARE NOTES:Pt noted to have dry necrotic tip of R index finger. No erythema or swelling of digit noted. Dark discoloration noted to sacrum . Maroon discoloration without induration or fluctuance noted to R buttocks(L)3.5cm x (W).5cm.Pt denied tenderness when palpated. Maroon discoloration without induration or fluctuance noted to R ischium.non-tender when palpated.(L)0.8cm x (W)2cm. Maroon discoloration without induration noted to L ischium.(L)3cm x (W)3.5cm.Non-tender when palpated. At base of scrotum pt noted to have scattered purpuric areas in circular pattern at base of scrotum , with one large purpuric area in center measuring(L) 3.5cm x (W)1cm. Per staff pt presented on admission with enlarged scrotum which has since resolved. R and L heels are dry firm and blanchable. Tx.Plan: Apply Cavilon Skin Barrier to base of Scrotum. Cover with Optifoam drsg. Change every 3 days and prn. Apply Moisture Barrier Paste to Sacrum. Cover with Optifoam drsg. Change every 3 days and prn. Apply Moisture Barrier Paste to R and L ischium. Cover each site with Optifoam drsg. Change every 3 days and prn. Swab R index finger with Betadine Daily. Leave open to Air. Apply Cavilon Skin Barrier to Both Heels. Cover each heel with Optifoam drsg. Change every 7 days and prn. Reposition at least every 2hours or as tolerated. Off-load heels with Pillow. APM/ROSI Mattress overlay.
--- NOTE | 2019-09-21 19:32 | NUR ---
HAND-OFF: Report given to Yee/RN, Patient is in stable condition. Endorsed plan of care.
--- NOTE | 2019-09-21 19:46 | NUR ---
NURSE NOTES: Received report from ANTONY Tillman, patient in stable condition, AOx3, denies pain at this time, R chest permacath infected per , it will be replaced, L hand g20, asymptomatic, intact,patent .VSS, bed low&locked, side rails upx3, call light within reach, will continue to monitor and reassess
[2019-09-21 20:00] VITALS: BP 135/68
[2019-09-21] MEDS: Atorvastatin 20mg tab ORAL SCH (20:45)
[2019-09-21] MEDS: Epoetin Alfa-EPBX(ESRD on dialysis)3000 units/ml vial SUBQ SCH (20:49)
[2019-09-21] MEDS: Epoetin Alfa-EPBX(ESRD on dialysis)4000 units/ml vial SUBQ SCH (20:49)
[2019-09-22] VITALS: BP 151/75
[2019-09-22] MEDS ORDERED: Vancomycin 1 GM in NS 275 ML IVPB ONE ×2
--- NOTE | 2019-09-22 03:50 | NUR ---
NURSE NOTES: Patient removed the health and nutrition specialist and refused to put it back. will continue to monitor
[2019-09-22 04:00] VITALS: BP 155/70
--- NOTE | 2019-09-22 05:36 | NUR ---
NURSE NOTES: Patient is disoriented, seeing things, refusing to place the waste specialist back. VSOsbaldo Posey MD aware, no orders at this time. Will continue to monitor and reassess
[2019-09-22] MEDS: NovoLOG Insulin Flexpen SUBQ SCH ×4 (06:30→21:00)
[2019-09-22 06:44] LABS: INR 1.1 (0.9-1.1)
[2019-09-22 07:05] LABS: BASOPHILS % (AUTO) 0.4 % (0.0-2.0); HEMATOCRIT 34.3 % (42.0-52.0); HEMOGLOBIN 10.9 G/DL (14.2-18.0); LYMPHOCYTES % (AUTO) 5.3 % (20.0-45.0); MEAN CORPUSCULAR VOLUME 92 FL (80-99); MONOCYTES % (AUTO) 8.6 % (1.0-10.0); NEUTROPHILS % (AUTO) 84.7 % (45.0-75.0); PLATELET COUNT 103 K/UL (150-450); RED BLOOD COUNT 3.74 M/UL (4.70-6.10); RED CELL DISTRIBUTION WIDTH 17.8 % (11.6-14.8); WHITE BLOOD COUNT 12.9 K/UL (4.8-10.8)
[2019-09-22 07:06] LABS: AMYLASE 33 U/L (25-115)
[2019-09-22 07:10] LABS: ALANINE AMINOTRANSFERASE 151 U/L (12-78); ALBUMIN 2.3 G/DL (3.4-5.0); ALBUMIN/GLOBULIN RATIO 0.4 (1.0-2.7); ALKALINE PHOSPHATASE 578 U/L (46-116); ANION GAP 10 mmol/L (5-15); ASPARTATE AMINO TRANSFERASE 122 U/L (15-37); BILIRUBIN,TOTAL 2.6 MG/DL (0.2-1.0); BLOOD UREA NITROGEN 59 mg/dL (7-18); CALCIUM 9.6 MG/DL (8.5-10.1); CARBON DIOXIDE 27 MMOL/L (21-32); CHLORIDE 99 MMOL/L (98-107); CREATININE 5.6 MG/DL (0.55-1.30); POTASSIUM 4.2 MMOL/L (3.5-5.1); SODIUM 136 MMOL/L (136-145)
--- NOTE | 2019-09-22 07:38 | NUR ---
HAND-OFF: Report given to ANTONY Eid, patient in stable condition, plan of care endorsed.
--- NOTE | 2019-09-22 07:46 | NUR ---
NURSE NOTES: Received report from NATONY Mcarthur. Pt in bed, awake, refusing to talk or answer questions, respirations unlabored and regular, no signs of distress noted, pt removed front desk monitor RN will attempt to put pt back on monitor, bed in lowest position, call light within reach.
[2019-09-22 08:00] VITALS: BP 154/73
[2019-09-22] MEDS: Heparin 5000 units/ml inj SUBQ SCH ×2 (09:00→21:00)
[2019-09-22] MEDS: HydrALAZINE 25mg tab ORAL SCH ×2 (09:30→17:32)
[2019-09-22] MEDS: Docusate 100mg cap ORAL SCH ×2 (09:31→17:31)
[2019-09-22] MEDS: Carvedilol 12.5mg tab ORAL SCH (09:31)
[2019-09-22] MEDS: Nephrovite tab (Rena-Vite) ORAL SCH (09:31)
[2019-09-22] MEDS: Aspirin Baby 81mg ORAL SCH (09:31)
[2019-09-22] MEDS ORDERED: NS 275ml ONE (09:33)
[2019-09-22] MEDS: Triamcinolone 0.1% oint TOPIC SCH ×3 (09:36→17:32)
--- NOTE | 2019-09-22 10:13 | NUR ---
NURSE NOTES: Notified Dr. Granado of positive blood culture. asked about HD catheter removal. Per MD Hurtado note, no coag labs had been previously drawn, so he ordered labs and will remove catheter for 48 hours. Made MD Granado aware of plan
--- NOTE | 2019-09-22 11:06 | Pulmonology Progress Note ---
Assessment/Plan Assessment/Plan ASSESSMENT Sepsis with MRSA bacteremia Pulmonary edema CHF Cardiomyopathy Right pleural effusion ESRD on HD Moderate pulmonary hypertension DM HTN Anemia of chronic kidney disease Elevated LFT Portal HTN Troponin elevation likely due to renal failure -per cardio PLAN OF CARE telemetry abx as per ID pending removal of HD cath by general surgeon Echo currently with EF 45-50 %, was 15-20 ; RSVP 53 cardio on board BB troponin level elevated ; flat levels ; likely due to renal failure O2 titrate, HHN prn pain management HD as per nephro with close monitoring of volumes, renal parameters and electrolytes last HD on 09/21 abdominal ultrasound noted : portal HTN suspected with ascites, splenomegaly and abnormal Doppler evaluation of the main portal vein trend LFT monitor H&H with goal to keep hemoglobin above 7 continue EPO supportive care DNR/DNI status case discussed and evaluated by supervising physician Subjective Allergies: Coded Allergies: No Known Allergies (Unverified , 07/06/19) Subjective had HD yesterday no SOB, occ CP Objective Last 24 Hour Vital Signs Date Time Temp Pulse Resp B/P (MAP) Pulse Ox O2 Delivery O2 Flow Rate FiO2 09/22/19 09:31 154/73 09/22/19 09:31 58 154/73 09/22/19 09:30 154/73 09/22/19 08:34 99 Nasal Cannula 2.0 28 09/22/19 08:28 Nasal Cannula 2.0 09/22/19 08:26 48 09/22/19 08:00 97.6 58 18 154/73 (100) 99 09/22/19 04:00 72 09/22/19 04:00 97.8 62 20 155/70 (98) 93 09/22/19 00:00 97.3 68 19 151/75 (100) 92 09/22/19 00:00 70 09/21/19 23:41 94 Nasal Cannula 2.0 28 09/21/19 21:00 Nasal Cannula 2.0 09/21/19 20:45 67 135/68 09/21/19 20:00 97.6 67 16 135/68 (90) 94 09/21/19 20:00 63 09/21/19 17:18 112/72 09/21/19 17:18 112/72 09/21/19 16:02 51 09/21/19 16:00 97.6 74 18 112/72 (85) 94 09/21/19 16:00 51 09/21/19 12:00 69 09/21/19 12:00 96.3 63 20 149/74 (99) 94 Intake and Output 09/21/19 09/22/19 19:00 07:00 Intake Total 100 ml Output Total 1400 ml Balance -1400 ml 100 ml Intake Oral 100 ml Hemodialysis UF 1400 ml General Appearance: no acute distress HEENT: normocephalic, atraumatic, anicteric Respiratory/Chest: lungs clear, no accessory muscle use Cardiovascular: bradycardia - SB in 50th Abdomen: soft, non tender Extremities: other - trace edema BLE Neurologic/Psychiatric: alert, oriented x 3, responsive Musculoskeletal: normal muscle bulk Microbiology Date/Time Source Procedure Growth Status 09/21/19 10:55 Blood Blood Culture - Preliminary Resulted 09/21/19 10:45 Blood Blood Culture - Preliminary Resulted 09/19/19 12:30 Blood Blood Culture - Final Staphylococcus Aureus - Mrsa Complete 09/19/19 12:15 Blood Blood Culture - Final Staphylococcus Aureus - Mrsa Complete Laboratory Tests 09/21/19 21:50: Random Vancomycin Level 19.6 09/22/19 05:55: White Blood Count 12.9H, Red Blood Count 3.74L, Hemoglobin 10.9L, Hematocrit 34.3L, Mean Corpuscular Volume 92, Mean Corpuscular Hemoglobin 29.1, Mean Corpuscular Hemoglobin Concent 31.8L, Red Cell Distribution Width 17.8H, Platelet Count 103L, Mean Platelet Volume 6.4L, Neutrophils (%) (Auto) 84.7H, Lymphocytes (%) (Auto) 5.3L, Monocytes (%) (Auto) 8.6, Eosinophils (%) (Auto) 1.0, Basophils (%) (Auto) 0.4, Prothrombin Time 11.9H, Prothromb Time International Ratio 1.1, Sodium Level 136, Potassium Level 4.2, Chloride Level 99, Carbon Dioxide Level 27, Anion Gap 10, Blood Urea Nitrogen 59H, Creatinine 5.6H, Estimat Glomerular Filtration Rate 10.4, Glucose Level 132H, Calcium Level 9.6, Total Bilirubin 2.6H, Direct Bilirubin 2.0H, Aspartate Amino Transf ( AST/SGOT) 122H, Alanine Aminotransferase (ALT/SGPT) 151H, Alkaline Phosphatase 578H, Total Protein 7.8, Albumin 2.3L, Globulin 5.5, Albumin/Globulin Ratio 0.4L , Amylase Level 33, Lipase 32L, Hepatitis A IgM Antibody [Pending], Hepatitis B Surface Antigen [Pending], Hepatitis B Core IgM Antibody [Pending], Hepatitis C Antibody [Pending], HIV (1&2) Antibody Rapid Negative Current Medications Medications (Trade) Dose Ordered Sig/Trav Route PRN Reason Start Time Stop Time Status Last Admin Dose Admin Acetaminophen (Tylenol) 500 mg Q6H PRN ORAL Mild Pain (Pain Scale 1-3) 09/15/19 00:15 10/14/19 22:59 09/21/19 01:25 Acetaminophen (Tylenol) 650 mg Q4H PRN ORAL Mild Pain (Pain Scale 1-3) 09/14/19 23:00 10/14/19 22:59 09/22/19 03:22 Aspirin (ASA) 81 mg DAILY ORAL 09/15/19 09:00 10/15/19 08:59 09/22/19 09:31 Atorvastatin Calcium (Lipitor) 20 mg BEDTIME ORAL 09/15/19 21:00 10/15/19 20:59 09/21/19 20:45 Carvedilol (Coreg) 12.5 mg EVERY 12 HOURS ORAL 09/15/19 09:00 10/15/19 08:59 09/22/19 09:31 Clonidine HCl (Catapres Tab) 0.1 mg EVERY 4 HOURS PRN ORAL For High Blood Pressure 09/15/19 01:00 10/15/19 00:59 Dextrose (Dextrose 50%) 25 ml Q30M PRN IV Hypoglycemia 09/14/19 23:00 10/14/19 22:59 Dextrose (Dextrose 50%) 50 ml Q30M PRN IV Hypoglycemia 09/14/19 23:00 10/14/19 22:59 Diphenhydramine HCl (Benadryl) 25 mg Q6H PRN ORAL Itching/Pruritis 09/14/19 23:00 10/14/19 22:59 09/22/19 03:22 Docusate Sodium (Colace) 100 mg BID ORAL 09/15/19 09:00 10/15/19 08:59 09/22/19 09:31 Epoetin Garrett (Epoetin Garrett(ESRD on dialysis)) 3,000 unit TUE SUBQ 09/17/19 21:00 10/17/19 20:59 09/21/19 20:49 Epoetin Garrett (Epoetin Garrett(ESRD on dialysis)) 4,000 unit SUBQ 09/17/19 21:00 10/17/19 20:59 09/21/19 20:49 Famotidine (Pepcid) 20 mg DAILY ORAL 09/15/19 09:00 10/15/19 08:59 09/22/19 09:30 Heparin Sodium (Porcine) (Heparin 5000 units/ml) 5,000 units EVERY 12 HOURS SUBQ 09/15/19 13:45 10/15/19 13:44 Heparin Sodium (Porcine) (Heparin Sod 1000 units/ml 10ml) 500 unit ONCE PRN IV FOR HD USE ONLY 09/20/19 14:00 09/22/19 23:59 Hydralazine HCl (Apresoline) 25 mg BID ORAL 09/15/19 18:00 10/15/19 08:59 09/22/19 09:30 Insulin Aspart (NovoLOG) BEFORE MEALS AND HS SUBQ 09/15/19 06:30 10/15/19 06:29 09/21/19 20:52 Isosorbide Dinitrate (Isordil) 10 mg BID ORAL 09/15/19 18:00 10/15/19 17:59 09/22/19 09:31 Lorazepam (Ativan 2mg/ml 1ml) 0.5 mg Q6H PRN IV For Anxiety 09/22/19 12:45 09/29/19 12:44 Nitroglycerin (Ntg) 0.4 mg Q5M PRN SL Prn Chest Pain 09/14/19 23:00 10/14/19 22:59 09/15/19 11:03 Ondansetron HCl (Zofran) 4 mg Q6H PRN ORAL Nausea & Vomiting 09/14/19 23:00 10/14/19 22:59 09/19/19 18:02 Pantoprazole (Protonix) 40 mg DAILY ORAL 09/15/19 09:00 10/15/19 08:59 09/22/19 09:30 Polyethylene Glycol (Miralax) 17 gm BEDTIME PRN ORAL Constipation 09/14/19 23:00 10/14/19 22:59 Polyethylene Glycol (Miralax) 17 gm DAILYPRN PRN ORAL Constipation 09/14/19 23:00 10/14/19 22:59 Prochlorperazine (Compazine) 10 mg Q6H PRN IVP Nausea & Vomiting 09/14/19 23:00 10/14/19 22:59 Sodium Chloride 1,000 ml @ 500 mls/hr Q2H PRN IVLG sbp<90 during hd 09/20/19 14:00 09/22/19 23:59 Triamcinolone (Kenalog) 1 applic TID TOPIC 09/15/19 09:00 10/15/19 08:59 09/22/19 09:36 Vancomycin HCl (Vanco rx to dose) 1 ea DAILY PRN MISC Per rx protocol 09/18/19 19:15 10/18/19 19:14 Vitamin B Complex/ Vit C/Folic Acid (Nephrovite) 1 tab DAILY ORAL 09/15/19 09:00 10/15/19 08:59 09/22/19 09:31 Montserrat Martin NP Sep 22, 2019 11:06
[2019-09-22 11:46] VITALS: BP 132/54
--- NOTE | 2019-09-22 12:57 | Nephrology Progress Note ---
Assessment/Plan Problem List: (1) ESRD (end stage renal disease) on dialysis (2) Anemia (3) HTN (hypertension) (4) Diabetes mellitus (5) CHF (congestive heart failure) (6) Bacteremia Plan remove HD catheter Hold HD cont Epogen abxs Subjective Subjective confused Objective Objective Last 24 Hour Vital Signs Date Time Temp Pulse Resp B/P (MAP) Pulse Ox O2 Delivery O2 Flow Rate FiO2 09/22/19 11:46 97.9 68 18 132/54 (80) 97 09/22/19 09:31 154/73 09/22/19 09:31 58 154/73 09/22/19 09:30 154/73 09/22/19 08:34 99 Nasal Cannula 2.0 28 09/22/19 08:28 Nasal Cannula 2.0 09/22/19 08:26 48 09/22/19 08:00 97.6 58 18 154/73 (100) 99 09/22/19 04:00 72 09/22/19 04:00 97.8 62 20 155/70 (98) 93 09/22/19 00:00 97.3 68 19 151/75 (100) 92 09/22/19 00:00 70 09/21/19 23:41 94 Nasal Cannula 2.0 28 09/21/19 21:00 Nasal Cannula 2.0 09/21/19 20:45 67 135/68 09/21/19 20:00 97.6 67 16 135/68 (90) 94 09/21/19 20:00 63 09/21/19 17:18 112/72 09/21/19 17:18 112/72 09/21/19 16:02 51 09/21/19 16:00 97.6 74 18 112/72 (85) 94 09/21/19 16:00 51 Intake and Output 09/21/19 09/22/19 19:00 07:00 Intake Total 100 ml Output Total 1400 ml Balance -1400 ml 100 ml Intake Oral 100 ml Hemodialysis UF 1400 ml Laboratory Tests 09/21/19 21:50: Random Vancomycin Level 19.6 09/22/19 05:55: White Blood Count 12.9H, Red Blood Count 3.74L, Hemoglobin 10.9L, Hematocrit 34.3L, Mean Corpuscular Volume 92, Mean Corpuscular Hemoglobin 29.1, Mean Corpuscular Hemoglobin Concent 31.8L, Red Cell Distribution Width 17.8H, Platelet Count 103L, Mean Platelet Volume 6.4L, Neutrophils (%) (Auto) 84.7H, Lymphocytes (%) (Auto) 5.3L, Monocytes (%) (Auto) 8.6, Eosinophils (%) (Auto) 1.0, Basophils (%) (Auto) 0.4, Prothrombin Time 11.9H, Prothromb Time International Ratio 1.1, Sodium Level 136, Potassium Level 4.2, Chloride Level 99, Carbon Dioxide Level 27, Anion Gap 10, Blood Urea Nitrogen 59H, Creatinine 5.6H, Estimat Glomerular Filtration Rate 10.4, Glucose Level 132H, Calcium Level 9.6, Total Bilirubin 2.6H, Direct Bilirubin 2.0H, Aspartate Amino Transf ( AST/SGOT) 122H, Alanine Aminotransferase (ALT/SGPT) 151H, Alkaline Phosphatase 578H, Total Protein 7.8, Albumin 2.3L, Globulin 5.5, Albumin/Globulin Ratio 0.4L , Amylase Level 33, Lipase 32L, Hepatitis A IgM Antibody [Pending], Hepatitis B Surface Antigen [Pending], Hepatitis B Core IgM Antibody [Pending], Hepatitis C Antibody [Pending], HIV (1&2) Antibody Rapid Negative Height (Feet): 5 Height (Inches): 8.00 Weight (Pounds): 200 Cardiovascular: normal rate Respiratory/Chest: lungs clear Neurologic: other - confused Justin Hutson MD Sep 22, 2019 12:57
[2019-09-22] MEDS: LORazepam Inj 2mg/ml 1ml IV PRN (13:21)
[2019-09-22] MEDS ORDERED: Lidocaine 1% 10mg/ml/Epi 0.005mg/ml 30ml vial INJ PRN (13:30)
--- NOTE | 2019-09-22 13:39 | Internal Med Progress Note ---
Subjective Date of Service: Sep 22, 2019 Physician Name AndressaKuldip Attending Physician Geovany Roblero MD Current Medications Medications (Trade) Dose Ordered Sig/Trav Route PRN Reason Start Time Stop Time Status Last Admin Dose Admin Acetaminophen (Tylenol) 500 mg Q6H PRN ORAL Mild Pain (Pain Scale 1-3) 09/15/19 00:15 10/14/19 22:59 09/21/19 01:25 Acetaminophen (Tylenol) 650 mg Q4H PRN ORAL Mild Pain (Pain Scale 1-3) 09/14/19 23:00 10/14/19 22:59 09/22/19 13:30 Aspirin (ASA) 81 mg DAILY ORAL 09/15/19 09:00 10/15/19 08:59 09/22/19 09:31 Atorvastatin Calcium (Lipitor) 20 mg BEDTIME ORAL 09/15/19 21:00 10/15/19 20:59 09/21/19 20:45 Carvedilol (Coreg) 12.5 mg EVERY 12 HOURS ORAL 09/15/19 09:00 10/15/19 08:59 09/22/19 09:31 Clonidine HCl (Catapres Tab) 0.1 mg EVERY 4 HOURS PRN ORAL For High Blood Pressure 09/15/19 01:00 10/15/19 00:59 Dextrose (Dextrose 50%) 25 ml Q30M PRN IV Hypoglycemia 09/14/19 23:00 10/14/19 22:59 Dextrose (Dextrose 50%) 50 ml Q30M PRN IV Hypoglycemia 09/14/19 23:00 10/14/19 22:59 Diphenhydramine HCl (Benadryl) 25 mg Q6H PRN ORAL Itching/Pruritis 09/14/19 23:00 10/14/19 22:59 09/22/19 03:22 Docusate Sodium (Colace) 100 mg BID ORAL 09/15/19 09:00 10/15/19 08:59 09/22/19 09:31 Epoetin Garrett (Epoetin Garrett(ESRD on dialysis)) 3,000 unit TUE-TUE-TUE SUBQ 09/17/19 21:00 10/17/19 20:59 09/21/19 20:49 Epoetin Garrett (Epoetin Garrett(ESRD on dialysis)) 4,000 unit TUE-TUE-TUE SUBQ 09/17/19 21:00 10/17/19 20:59 09/21/19 20:49 Famotidine (Pepcid) 20 mg DAILY ORAL 09/15/19 09:00 10/15/19 08:59 09/22/19 09:30 Heparin Sodium (Porcine) (Heparin 5000 units/ml) 5,000 units EVERY 12 HOURS SUBQ 09/15/19 13:45 10/15/19 13:44 Heparin Sodium (Porcine) (Heparin Sod 1000 units/ml 10ml) 500 unit ONCE PRN IV FOR HD USE ONLY 09/20/19 14:00 09/22/19 23:59 Hydralazine HCl (Apresoline) 25 mg BID ORAL 09/15/19 18:00 10/15/19 08:59 09/22/19 09:30 Insulin Aspart (NovoLOG) BEFORE MEALS AND HS SUBQ 09/15/19 06:30 10/15/19 06:29 09/22/19 12:16 Isosorbide Dinitrate (Isordil) 10 mg BID ORAL 09/15/19 18:00 10/15/19 17:59 09/22/19 09:31 Lorazepam (Ativan 2mg/ml 1ml) 0.5 mg Q6H PRN IV For Anxiety 09/22/19 12:45 09/29/19 12:44 09/22/19 13:21 Nitroglycerin (Ntg) 0.4 mg Q5M PRN SL Prn Chest Pain 09/14/19 23:00 10/14/19 22:59 09/15/19 11:03 Ondansetron HCl (Zofran) 4 mg Q6H PRN ORAL Nausea & Vomiting 09/14/19 23:00 10/14/19 22:59 09/19/19 18:02 Pantoprazole (Protonix) 40 mg DAILY ORAL 09/15/19 09:00 10/15/19 08:59 09/22/19 09:30 Polyethylene Glycol (Miralax) 17 gm BEDTIME PRN ORAL Constipation 09/14/19 23:00 10/14/19 22:59 Polyethylene Glycol (Miralax) 17 gm DAILYPRN PRN ORAL Constipation 09/14/19 23:00 10/14/19 22:59 Prochlorperazine (Compazine) 10 mg Q6H PRN IVP Nausea & Vomiting 09/14/19 23:00 10/14/19 22:59 Sodium Chloride 1,000 ml @ 500 mls/hr Q2H PRN IVLG sbp<90 during hd 09/20/19 14:00 09/22/19 23:59 Triamcinolone (Kenalog) 1 applic TID TOPIC 09/15/19 09:00 10/15/19 08:59 09/22/19 12:16 Vancomycin HCl (Vanco rx to dose) 1 ea DAILY PRN MISC Per rx protocol 09/18/19 19:15 10/18/19 19:14 Vitamin B Complex/ Vit C/Folic Acid (Nephrovite) 1 tab DAILY ORAL 09/15/19 09:00 10/15/19 08:59 09/22/19 09:31 Allergies: Coded Allergies: No Known Allergies (Unverified , 07/06/19) ROS Limited/Unobtainable: No Constitutional: Reports: no symptoms HEENT: Reports: no symptoms Cardiovascular: Reports: chest pain Respiratory: Reports: no symptoms Gastrointestinal/Abdominal: Reports: no symptoms Genitourinary: Reports: no symptoms Neurologic/Psychiatric: Reports: no symptoms Subjective 63 YO M admitted with chest pain. Now MRSA sepsis. Awiat D/C hemodialysis cath. Cover for Jqauan Holcomb-dr Roblero Objective Last Vital Signs Date Time Temp Pulse Resp B/P (MAP) Pulse Ox O2 Delivery O2 Flow Rate FiO2 09/22/19 11:46 97.9 68 18 132/54 (80) 97 09/22/19 08:34 Nasal Cannula 2.0 28 Laboratory Tests Test 09/21/19 21:50 09/22/19 05:55 Random Vancomycin Level 19.6 ug/mL White Blood Count 12.9 K/UL (4.8-10.8) H Red Blood Count 3.74 M/UL (4.70-6.10) L Hemoglobin 10.9 G/DL (14.2-18.0) L Hematocrit 34.3 % (42.0-52.0) L Mean Corpuscular Volume 92 FL (80-99) Mean Corpuscular Hemoglobin 29.1 PG (27.0-31.0) Mean Corpuscular Hemoglobin Concent 31.8 G/DL (32.0-36.0) L Red Cell Distribution Width 17.8 % (11.6-14.8) H Platelet Count 103 K/UL (150-450) L Mean Platelet Volume 6.4 FL (6.5-10.1) L Neutrophils (%) (Auto) 84.7 % (45.0-75.0) H Lymphocytes (%) (Auto) 5.3 % (20.0-45.0) L Monocytes (%) (Auto) 8.6 % (1.0-10.0) Eosinophils (%) (Auto) 1.0 % (0.0-3.0) Basophils (%) (Auto) 0.4 % (0.0-2.0) Prothrombin Time 11.9 SEC (9.30-11.50) H Prothromb Time International Ratio 1.1 (0.9-1.1) Sodium Level 136 MMOL/L (136-145) Potassium Level 4.2 MMOL/L (3.5-5.1) Chloride Level 99 MMOL/L (98-107) Carbon Dioxide Level 27 MMOL/L (21-32) Anion Gap 10 mmol/L (5-15) Blood Urea Nitrogen 59 mg/dL (7-18) H Creatinine 5.6 MG/DL (0.55-1.30) H Estimat Glomerular Filtration Rate 10.4 mL/min (>60) Glucose Level 132 MG/DL (74-106) H Calcium Level 9.6 MG/DL (8.5-10.1) Total Bilirubin 2.6 MG/DL (0.2-1.0) H Direct Bilirubin 2.0 MG/DL (0.0-0.3) H Aspartate Amino Transf (AST/SGOT) 122 U/L (15-37) H Alanine Aminotransferase (ALT/SGPT) 151 U/L (12-78) H Alkaline Phosphatase 578 U/L (46-116) H Total Protein 7.8 G/DL (6.4-8.2) Albumin 2.3 G/DL (3.4-5.0) L Globulin 5.5 g/dL Albumin/Globulin Ratio 0.4 (1.0-2.7) L Amylase Level 33 U/L (25-115) Lipase 32 U/L (73-393) L Hepatitis A IgM Antibody Pending Hepatitis B Surface Antigen Pending Hepatitis B Core IgM Antibody Pending Hepatitis C Antibody Pending HIV (1&2) Antibody Rapid Negative (NEGATIVE) Microbiology Date/Time Source Procedure Growth Status 09/21/19 10:55 Blood Blood Culture - Preliminary Resulted 09/21/19 10:45 Blood Blood Culture - Preliminary Resulted Intake and Output 09/21/19 09/22/19 19:00 07:00 Intake Total 100 ml Output Total 1400 ml Balance -1400 ml 100 ml Intake Oral 100 ml Hemodialysis UF 1400 ml Objective Objective GENERAL: The patient is awake and responsive, in no acute distress. HEAD AND NECK: Pupils are equally reactive to light. Extraocular movements intact. Neck was supple. Positive JVD. LUNGS: Good air entry. No wheezing or rhonchi. Decreased air in the bases. HEART: S1, S2. Distant heart sounds. No murmur or gallop. Chest wall has a PermCath. No sign of infection. ABDOMEN: Soft, nondistended, and nontender. Positive bowel sounds. EXTREMITIES: +3 edema in bilateral lower extremity. No cyanosis or clubbing. PELVIC: Scrotum has edema and penile edema was noted. NEUROLOGIC: Cranial nerves II through XII grossly, unsteady gait. Assessment/Plan Assessment/Plan Assessment/Plan Assessment/Plan ASSESSMENT: 1. Chest pain with mild elevated Troponin, possible acute coronary syndrome. 2. Congestive heart failure with reduced ejection fraction. 3. End-stage renal disease, on hemodialysis, Tuesday, Tuesday, and Tuesday. 4. Diabetes type 2 with diabetic gastroparesis as well as diabetic neuropathy and diabetic nephropathy. 5. Gastroesophageal reflux disease. 6. Hypertension. 7. Mobitz type 1 first-degree AV block. 8. Anasarca. 9. Pedal edema. 10. Severe cardiomyopathy. LVEF=15-20%; repeat=45% 11. Systemic hypertension. 12. Dialysis noncompliance. 13. Mitral as well as tricuspid regurgitation. 14. Severe anemia 15. Sepsis=MRSA PLAN: On telemetry. Dr. Garcia from Cardiology Electrophysiology consultation; Dr. Mercer, Pulmonary Critical Care; Dr. Justin Hutson from Nephrology. Hemodialysis 09/21/19 Code status at per POLST is DNR. DVT prophylaxis, heparin subcutaneous. Accu-Chek, sliding scale. S/P Transfusion 2 units PRBC on 09/20/19 D/C hemodialysis Kuldip Burton MD Sep 22, 2019 13:39
--- NOTE | 2019-09-22 14:09 | Surgery Progress Note ---
Surgery Progress Note Subjective Additional Comments patient declined coags/labs last night so not safe to remove line allowed for labs this AM. noted. line removed. cultures sent otherwise well and comfortable Objective Last 24 Hour Vital Signs Date Time Temp Pulse Resp B/P (MAP) Pulse Ox O2 Delivery O2 Flow Rate FiO2 09/22/19 11:46 97.9 68 18 132/54 (80) 97 09/22/19 11:36 48 09/22/19 09:31 154/73 09/22/19 09:31 58 154/73 09/22/19 09:30 154/73 09/22/19 08:34 99 Nasal Cannula 2.0 28 09/22/19 08:28 Nasal Cannula 2.0 09/22/19 08:26 48 09/22/19 08:00 97.6 58 18 154/73 (100) 99 09/22/19 04:00 72 09/22/19 04:00 97.8 62 20 155/70 (98) 93 09/22/19 00:00 97.3 68 19 151/75 (100) 92 09/22/19 00:00 70 09/21/19 23:41 94 Nasal Cannula 2.0 28 09/21/19 21:00 Nasal Cannula 2.0 09/21/19 20:45 67 135/68 09/21/19 20:00 97.6 67 16 135/68 (90) 94 09/21/19 20:00 63 09/21/19 17:18 112/72 09/21/19 17:18 112/72 09/21/19 16:02 51 09/21/19 16:00 97.6 74 18 112/72 (85) 94 09/21/19 16:00 51 I&O Intake and Output 09/21/19 09/22/19 19:00 07:00 Intake Total 100 ml Output Total 1400 ml Balance -1400 ml 100 ml Intake Oral 100 ml Hemodialysis UF 1400 ml Dressing: other Wound: other Drains: other Cardiovascular: RSR Respiratory: decreased breath sounds Abdomen: soft, present bowel sounds Extremities: no cyanosis, other Laboratory Tests Test 09/21/19 21:50 09/22/19 05:55 Random Vancomycin Level 19.6 ug/mL White Blood Count 12.9 K/UL (4.8-10.8) H Red Blood Count 3.74 M/UL (4.70-6.10) L Hemoglobin 10.9 G/DL (14.2-18.0) L Hematocrit 34.3 % (42.0-52.0) L Mean Corpuscular Volume 92 FL (80-99) Mean Corpuscular Hemoglobin 29.1 PG (27.0-31.0) Mean Corpuscular Hemoglobin Concent 31.8 G/DL (32.0-36.0) L Red Cell Distribution Width 17.8 % (11.6-14.8) H Platelet Count 103 K/UL (150-450) L Mean Platelet Volume 6.4 FL (6.5-10.1) L Neutrophils (%) (Auto) 84.7 % (45.0-75.0) H Lymphocytes (%) (Auto) 5.3 % (20.0-45.0) L Monocytes (%) (Auto) 8.6 % (1.0-10.0) Eosinophils (%) (Auto) 1.0 % (0.0-3.0) Basophils (%) (Auto) 0.4 % (0.0-2.0) Prothrombin Time 11.9 SEC (9.30-11.50) H Prothromb Time International Ratio 1.1 (0.9-1.1) Sodium Level 136 MMOL/L (136-145) Potassium Level 4.2 MMOL/L (3.5-5.1) Chloride Level 99 MMOL/L (98-107) Carbon Dioxide Level 27 MMOL/L (21-32) Anion Gap 10 mmol/L (5-15) Blood Urea Nitrogen 59 mg/dL (7-18) H Creatinine 5.6 MG/DL (0.55-1.30) H Estimat Glomerular Filtration Rate 10.4 mL/min (>60) Glucose Level 132 MG/DL (74-106) H Calcium Level 9.6 MG/DL (8.5-10.1) Total Bilirubin 2.6 MG/DL (0.2-1.0) H Direct Bilirubin 2.0 MG/DL (0.0-0.3) H Aspartate Amino Transf (AST/SGOT) 122 U/L (15-37) H Alanine Aminotransferase (ALT/SGPT) 151 U/L (12-78) H Alkaline Phosphatase 578 U/L (46-116) H Total Protein 7.8 G/DL (6.4-8.2) Albumin 2.3 G/DL (3.4-5.0) L Globulin 5.5 g/dL Albumin/Globulin Ratio 0.4 (1.0-2.7) L Amylase Level 33 U/L (25-115) Lipase 32 U/L (73-393) L Hepatitis A IgM Antibody Pending Hepatitis B Surface Antigen Pending Hepatitis B Core IgM Antibody Pending Hepatitis C Antibody Pending HIV (1&2) Antibody Rapid Negative (NEGATIVE) Plan Problems: (1) Bacteremia Assessment & Plan: This is a 63-year-old male with multi-medical comorbidities end-stage renal disease on dialysis currently through right tunneled catheter who now has bacteremia MRSA staph aureus and worsening leukocytosis. Was scheduled to have catheter removed and unfortunately is not been done so far and I was called to assist with care and management. Patient seen, patient evaluated, chart reviewed. Given these above findings catheter should be removed as soon as possible if not prior. Furthermore abnormal LFTs with unknown etiology needs further work-up. Pending coags prior to removal of catheter to ensure not coagulopathic and safe for removal -coags noted. line removed 09/22. tip sent for cx Please see procedure note once removed Ultrasound abdomen Trend LFTs IV antibiotics as per infectious disease Trend labs Thank you will follow with recommendations (2) ESRD needing dialysis (3) Noncompliance with renal dialysis Assessment & Plan: Pt noted to have dry necrotic tip of R index finger. No erythema or swelling of digit noted. Dark discoloration noted to sacrum . Maroon discoloration without induration or fluctuance noted to R buttocks(L) 3.5cm x (W).5cm.Pt denied tenderness when palpated. Maroon discoloration without induration or fluctuance noted to R ischium.non- tender when palpated.(L)0.8cm x (W)2cm. Maroon discoloration without induration noted to L ischium.(L)3cm x (W)3.5cm.Non -tender when palpated. At base of scrotum pt noted to have scattered purpuric areas in circular pattern at base of scrotum , with one large purpuric area in center measuring(L) 3.5cm x (W)1cm. Per staff pt presented on admission with enlarged scrotum which has since resolved. R and L heels are dry firm and blanchable. Tx.Plan: Apply Cavilon Skin Barrier to base of Scrotum. Cover with Optifoam drsg. Change every 3 days and prn. Apply Moisture Barrier Paste to Sacrum. Cover with Optifoam drsg. Change every 3 days and prn. Apply Moisture Barrier Paste to R and L ischium. Cover each site with Optifoam drsg. Change every 3 days and prn. Swab R index finger with Betadine Daily. Leave open to Air. Apply Cavilon Skin Barrier to Both Heels. Cover each heel with Optifoam drsg. Change every 7 days and prn. Reposition at least every 2hours or as tolerated. Off-load heels with Pillow. APM/ROSI Mattress overlay. (4) Abnormal LFTs Assessment & Plan: The liver is unremarkable. The main portal vein shows abnormal pulsatile waveform with flow both antegrade and retrograde. There is mild ascites. There is a moderate right pleural effusion. No biliary ductal dilatation is identified. There is thickening of the wall the gallbladder. No gallstones are identified. CBD is 6.6 mm. The spleen is enlarged measuring between 13 and 14 cm. Kidneys are echogenic. There is no hydronephrosis appreciated. The left kidney is not well seen. Pancreas is also not well seen. IMPRESSION: Portal hypertension suspected with ascites, splenomegaly and abnormal Doppler evaluation of the main portal vein. Thickened gallbladder wall nonspecific. Mild ascites Splenomegaly Right pleural effusion para graft medical renal disease suspected. Left kidney not seen well. Ciro Hurtado Sep 22, 2019 14:09
--- NOTE | 2019-09-22 14:12 | Operative Note - PDOC ---
Operative Note Operative Note Date of Operation/Procedure: Sep 22, 2019 Pre-op Diagnosis: Sepsis, infected right tunneled permacath Procedure: Removal of right tunneled permacath Post-op Diagnosis: same as pre-op Surgeon: Ciro Hurtado MD Anesthesia: other Specimen: yes Complications: none Condition: stable Estimated Blood Loss: minimal Drains: none Implant(s) used?: No Indications for Procedure 63-year-old male with bacteremia believed to be from tunneled right permacath. Line removal and getting recommended. Coags noted. Work-up done. Consent obtained from patient. Description of Procedure Patient was made comfortable at the bedside in the supine position. The prior dressings were removed and the right chest wall prepped and draped in the same surgical fashion. The catheter was exiting below the clavicle and the felt was noted approximately 2 cm proximal to the catheter exit site. Using surgical scissors the felt was slowly dissected out and once appropriate the catheter was removed without complication. Pressure was held both at the supraclavicular insertion site and the tunnel. Catheter tip was sent for cultures. Pressure was held for approximately 10 minutes until hemostasis noted. Dressings applied. Instructions given to nursing staff to evaluate monitor area and call me with any issues. Ciro Hurtado Sep 22, 2019 14:12
--- NOTE | 2019-09-22 15:33 | Cardiac Electrophysiology PN ---
Assessment/Plan Assessment/Plan 1. Troponin elevation but levels are flat, likely due to renal failure Continue aspirin, Coreg and Lipitor 2. Severe cardiomyopathy with EF of 15% to 20%. Repeat preliminary echo showed EF 45%! Continue Coreg, hydralazine, HD and Isordil. If the final Echo report shows ejection fraction less than 30%, will need defibrillator implantation. 3. Hypertension. Continue current heart failure therapy. 4. Bradycardia. Coreg to 6.25 bid 5. End-stage renal disease, on hemodialysis. 6. Diabetes. AFSHAN RN Subjective Subjective In SR with first degree AVB.Mostly in high 40s. No CP or SOB. Objective Last 24 Hour Vital Signs Date Time Temp Pulse Resp B/P (MAP) Pulse Ox O2 Delivery O2 Flow Rate FiO2 09/22/19 14:00 97.9 09/22/19 11:46 97.9 68 18 132/54 (80) 97 09/22/19 11:36 48 09/22/19 09:31 154/73 09/22/19 09:31 58 154/73 09/22/19 09:30 154/73 09/22/19 08:34 99 Nasal Cannula 2.0 28 09/22/19 08:28 Nasal Cannula 2.0 09/22/19 08:26 48 09/22/19 08:00 97.6 58 18 154/73 (100) 99 09/22/19 04:00 72 09/22/19 04:00 97.8 62 20 155/70 (98) 93 09/22/19 00:00 97.3 68 19 151/75 (100) 92 09/22/19 00:00 70 09/21/19 23:41 94 Nasal Cannula 2.0 28 09/21/19 21:00 Nasal Cannula 2.0 09/21/19 20:45 67 135/68 09/21/19 20:00 97.6 67 16 135/68 (90) 94 09/21/19 20:00 63 09/21/19 17:18 112/72 09/21/19 17:18 112/72 09/21/19 16:02 51 09/21/19 16:00 97.6 74 18 112/72 (85) 94 09/21/19 16:00 51 Intake and Output 09/21/19 09/22/19 19:00 07:00 Intake Total 100 ml Output Total 1400 ml Balance -1400 ml 100 ml Intake Oral 100 ml Hemodialysis UF 1400 ml Laboratory Tests Test 09/21/19 21:50 09/22/19 05:55 Random Vancomycin Level 19.6 ug/mL White Blood Count 12.9 K/UL (4.8-10.8) H Red Blood Count 3.74 M/UL (4.70-6.10) L Hemoglobin 10.9 G/DL (14.2-18.0) L Hematocrit 34.3 % (42.0-52.0) L Mean Corpuscular Volume 92 FL (80-99) Mean Corpuscular Hemoglobin 29.1 PG (27.0-31.0) Mean Corpuscular Hemoglobin Concent 31.8 G/DL (32.0-36.0) L Red Cell Distribution Width 17.8 % (11.6-14.8) H Platelet Count 103 K/UL (150-450) L Mean Platelet Volume 6.4 FL (6.5-10.1) L Neutrophils (%) (Auto) 84.7 % (45.0-75.0) H Lymphocytes (%) (Auto) 5.3 % (20.0-45.0) L Monocytes (%) (Auto) 8.6 % (1.0-10.0) Eosinophils (%) (Auto) 1.0 % (0.0-3.0) Basophils (%) (Auto) 0.4 % (0.0-2.0) Prothrombin Time 11.9 SEC (9.30-11.50) H Prothromb Time International Ratio 1.1 (0.9-1.1) Sodium Level 136 MMOL/L (136-145) Potassium Level 4.2 MMOL/L (3.5-5.1) Chloride Level 99 MMOL/L (98-107) Carbon Dioxide Level 27 MMOL/L (21-32) Anion Gap 10 mmol/L (5-15) Blood Urea Nitrogen 59 mg/dL (7-18) H Creatinine 5.6 MG/DL (0.55-1.30) H Estimat Glomerular Filtration Rate 10.4 mL/min (>60) Glucose Level 132 MG/DL (74-106) H Calcium Level 9.6 MG/DL (8.5-10.1) Total Bilirubin 2.6 MG/DL (0.2-1.0) H Direct Bilirubin 2.0 MG/DL (0.0-0.3) H Aspartate Amino Transf (AST/SGOT) 122 U/L (15-37) H Alanine Aminotransferase (ALT/SGPT) 151 U/L (12-78) H Alkaline Phosphatase 578 U/L (46-116) H Total Protein 7.8 G/DL (6.4-8.2) Albumin 2.3 G/DL (3.4-5.0) L Globulin 5.5 g/dL Albumin/Globulin Ratio 0.4 (1.0-2.7) L Amylase Level 33 U/L (25-115) Lipase 32 U/L (73-393) L Hepatitis A IgM Antibody Pending Hepatitis B Surface Antigen Pending Hepatitis B Core IgM Antibody Pending Hepatitis C Antibody Pending HIV (1&2) Antibody Rapid Negative (NEGATIVE) Microbiology Date/Time Source Procedure Growth Status 09/21/19 10:55 Blood Blood Culture - Preliminary Resulted 09/21/19 10:45 Blood Blood Culture - Preliminary Resulted Objective HEAD AND NECK: Mild JVD. LUNGS: Decreased breath sounds. CARDIOVASCULAR: Regular S1 and S2 with no gallop or murmur. ABDOMEN: Soft. EXTREMITIES: 2+ pitting edema and scrotal edema. Guero Garcia MD Sep 22, 2019 15:32
[2019-09-22 16:00] VITALS: BP 127/53
--- NOTE | 2019-09-22 19:28 | NUR ---
HAND-OFF: Report given to ANTONY Mcarthur. Plan of care endorsed.
--- NOTE | 2019-09-22 19:47 | NUR ---
NURSE NOTES: Received report from ANTONY Eid, patient in stable condition, sleeping, no distress denies pain at this time, L hand g20, asymptomatic, intact,patent .VSS, bed low&locked, side rails upx3, call light within reach, will continue to monitor and reassess
[2019-09-22 20:00] VITALS: BP 150/61
[2019-09-22] MEDS: Carvedilol 6.25mg Tab ORAL SCH (21:00)
[2019-09-22] MEDS: Atorvastatin 20mg tab ORAL SCH (21:40)
[2019-09-23] VITALS: BP 148/69
[2019-09-23 04:00] VITALS: BP 128/62
[2019-09-23] MEDS: NovoLOG Insulin Flexpen SUBQ SCH ×4 (06:30→21:00)
--- NOTE | 2019-09-23 07:10 | NUR ---
NURSE NOTES: Received report from ANTONY Mcarthur. The patient is resting on the bed without acute distress or shortness of breath. The patient's bed in the lowest position, call light in reach, and fall and aspiration precaution reinforced. IV site intact and patent. Right upper permacath removed per order. The patient is on oxygen therapy as ordered. Will continue plan of care.
--- NOTE | 2019-09-23 07:41 | NUR ---
HAND-OFF: Report given to ANTONY Piedra,patient in stable condition, plan of care endorsed.
[2019-09-23 08:00] VITALS: BP 138/66
--- NOTE | 2019-09-23 08:30 | NUR ---
NURSE NOTES: JOSHUA Martin at the bedside assessed the patient. No new order yet. Will monitor for bradycardia based on history of episode. Will continue plan of care.
[2019-09-23] MEDS: Heparin 5000 units/ml inj SUBQ SCH ×2 (09:00→21:00)
[2019-09-23] MEDS: HydrALAZINE 25mg tab ORAL SCH ×2 (09:13→17:17)
[2019-09-23] MEDS: Aspirin Baby 81mg ORAL SCH (09:13)
[2019-09-23] MEDS: Docusate 100mg cap ORAL SCH ×2 (09:13→17:17)
[2019-09-23] MEDS: Carvedilol 6.25mg Tab ORAL SCH ×2 (09:14→21:00)
[2019-09-23] MEDS: Nephrovite tab (Rena-Vite) ORAL SCH (09:14)
[2019-09-23] MEDS: Triamcinolone 0.1% oint TOPIC SCH ×3 (09:15→17:18)
--- NOTE | 2019-09-23 09:16 | Pulmonology Progress Note ---
Assessment/Plan Assessment/Plan ASSESSMENT Sepsis with MRSA bacteremia Pulmonary edema CHF Cardiomyopathy Right pleural effusion ESRD on HD Moderate pulmonary hypertension DM HTN Anemia of chronic kidney disease Elevated LFT Portal HTN Troponin elevation likely due to renal failure -per cardio PLAN OF CARE telemetry abx as per ID s/p removal of HD cath by general surgeon 09/22 Echo currently with EF 45-50 %, was 15-20 ; RSVP 53 cardio on board BB troponin level elevated ; flat levels ; likely due to renal failure O2 titrate, HHN prn pain management HD as per nephro with close monitoring of volumes, renal parameters and electrolytes last HD on 09/21 will need placement of temporary HD catheter by IR on Tuesday abdominal ultrasound noted : portal HTN suspected with ascites, splenomegaly and abnormal Doppler evaluation of the main portal vein trend LFT monitor H&H with goal to keep hemoglobin above 7 continue EPO supportive care DNR/DNI status case discussed and evaluated by supervising physician Subjective Allergies: Coded Allergies: No Known Allergies (Unverified , 07/06/19) Subjective had HD on Tuesday HD catheter was dc Saturday 09/22 by surgeon no SOB, occ CP Objective Last 24 Hour Vital Signs Date Time Temp Pulse Resp B/P (MAP) Pulse Ox O2 Delivery O2 Flow Rate FiO2 09/23/19 07:50 96 Nasal Cannula 2.0 28 09/23/19 04:00 97.6 64 19 128/62 (84) 96 09/23/19 04:00 60 09/23/19 02:46 43 09/23/19 00:00 96.7 60 18 148/69 (95) 95 09/22/19 21:00 42 156/65 09/22/19 21:00 Nasal Cannula 2.0 09/22/19 20:00 48 09/22/19 20:00 98 Nasal Cannula 2.0 28 09/22/19 20:00 96.7 57 19 150/61 (90) 98 09/22/19 17:32 127/53 09/22/19 17:32 127/53 09/22/19 16:00 97.8 56 17 127/53 (77) 95 09/22/19 15:31 41 09/22/19 14:00 97.9 09/22/19 11:46 97.9 68 18 132/54 (80) 97 09/22/19 11:36 48 09/22/19 09:31 154/73 11/30/19 09:31 58 154/73 09/22/19 09:30 154/73 Intake and Output 09/22/19 09/23/19 19:00 07:00 Intake Total 200 ml 100 ml Balance 200 ml 100 ml Intake Oral 200 ml 100 ml Objective General Appearance: no acute distress HEENT: normocephalic, atraumatic, anicteric Respiratory/Chest: lungs clear, no accessory muscle use Cardiovascular: bradycardia - SB in 50th with 1 st degree AV block Abdomen: soft, non tender Extremities: other - trace edema BLE, 2 nd finger R hand necrotic (long time) Neurologic/Psychiatric: alert, oriented x 3, responsive Musculoskeletal: normal muscle bulk Microbiology Date/Time Source Procedure Growth Status 09/21/19 10:55 Blood Blood Culture - Preliminary Staphylococcus Aureus Resulted 09/21/19 10:45 Blood Blood Culture - Preliminary Staphylococcus Aureus Resulted Current Medications Medications (Trade) Dose Ordered Sig/Trav Route PRN Reason Start Time Stop Time Status Last Admin Dose Admin Acetaminophen (Tylenol) 500 mg Q6H PRN ORAL Mild Pain (Pain Scale 1-3) 09/15/19 00:15 10/14/19 22:59 09/21/19 01:25 Acetaminophen (Tylenol) 650 mg Q4H PRN ORAL Mild Pain (Pain Scale 1-3) 09/14/19 23:00 10/14/19 22:59 09/22/19 13:30 Aspirin (ASA) 81 mg DAILY ORAL 09/15/19 09:00 10/15/19 08:59 09/22/19 09:31 Atorvastatin Calcium (Lipitor) 20 mg BEDTIME ORAL 09/15/19 21:00 10/15/19 20:59 09/22/19 21:40 Carvedilol (Coreg) 6.25 mg EVERY 12 HOURS ORAL 09/22/19 21:00 10/22/19 20:59 Clonidine HCl (Catapres Tab) 0.1 mg EVERY 4 HOURS PRN ORAL For High Blood Pressure 09/15/19 01:00 10/15/19 00:59 Dextrose (Dextrose 50%) 25 ml Q30M PRN IV Hypoglycemia 09/14/19 23:00 10/14/19 22:59 Dextrose (Dextrose 50%) 50 ml Q30M PRN IV Hypoglycemia 09/14/19 23:00 10/14/19 22:59 Diphenhydramine HCl (Benadryl) 25 mg Q6H PRN ORAL Itching/Pruritis 09/14/19 23:00 10/14/19 22:59 09/22/19 03:22 Docusate Sodium (Colace) 100 mg BID ORAL 09/15/19 09:00 10/15/19 08:59 09/22/19 17:31 Epoetin Garrett (Epoetin Garrett(ESRD on dialysis)) 3,000 unit TUE-TUE-TUE SUBQ 09/17/19 21:00 10/17/19 20:59 09/21/19 20:49 Epoetin Garrett (Epoetin Garrett(ESRD on dialysis)) 4,000 unit TUE- SUBQ 09/17/19 21:00 10/17/19 20:59 09/21/19 20:49 Famotidine (Pepcid) 20 mg DAILY ORAL 09/15/19 09:00 10/15/19 08:59 09/22/19 09:30 Heparin Sodium (Porcine) (Heparin 5000 units/ml) 5,000 units EVERY 12 HOURS SUBQ 09/15/19 13:45 10/15/19 13:44 Hydralazine HCl (Apresoline) 25 mg BID ORAL 09/15/19 18:00 10/15/19 08:59 09/22/19 17:32 Insulin Aspart (NovoLOG) BEFORE MEALS AND HS SUBQ 09/15/19 06:30 10/15/19 06:29 09/22/19 16:30 Isosorbide Dinitrate (Isordil) 10 mg BID ORAL 09/15/19 18:00 10/15/19 17:59 09/22/19 17:32 Lorazepam (Ativan 2mg/ml 1ml) 0.5 mg Q6H PRN IV For Anxiety 09/22/19 12:45 09/29/19 12:44 09/22/19 13:21 Nitroglycerin (Ntg) 0.4 mg Q5M PRN SL Prn Chest Pain 09/14/19 23:00 10/14/19 22:59 09/15/19 11:03 Ondansetron HCl (Zofran) 4 mg Q6H PRN ORAL Nausea & Vomiting 09/14/19 23:00 10/14/19 22:59 09/19/19 18:02 Pantoprazole (Protonix) 40 mg DAILY ORAL 09/15/19 09:00 10/15/19 08:59 09/22/19 09:30 Polyethylene Glycol (Miralax) 17 gm BEDTIME PRN ORAL Constipation 09/14/19 23:00 10/14/19 22:59 Polyethylene Glycol (Miralax) 17 gm DAILYPRN PRN ORAL Constipation 09/14/19 23:00 10/14/19 22:59 Prochlorperazine (Compazine) 10 mg Q6H PRN IVP Nausea & Vomiting 09/14/19 23:00 10/14/19 22:59 Triamcinolone (Kenalog) 1 applic TID TOPIC 09/15/19 09:00 10/15/19 08:59 09/22/19 17:32 Vancomycin HCl (Vanco rx to dose) 1 ea DAILY PRN MISC Per rx protocol 09/18/19 19:15 10/18/19 19:14 Vitamin B Complex/ Vit C/Folic Acid (Nephrovite) 1 tab DAILY ORAL 09/15/19 09:00 10/15/19 08:59 09/22/19 09:31 Montserrat Martin NP Sep 23, 2019 09:16
[2019-09-23] MEDS ORDERED: Albuterol/Ipratropium 3ml neb HHN PRN (09:30)
--- NOTE | 2019-09-23 09:30 | NUR ---
NURSE NOTES: Dr. Hutson at the bedside assessed the patient. Per Dr. Hutson, he will plan to order placement of HD access on 09/25/2019. No HD planned till that date. The patient denies of acute distress or shortness of breath. Will continue plan of care.
--- NOTE | 2019-09-23 10:07 | Infectious Diseases Prog Note ---
Assessment/Plan Assessment/Plan Assessment: Sepsis MRSA bacteremia- likely from HD cath- r/o endocarditis -09/18 Bcx 4/ MRSA (from HD cath); 09/19 BCx 4/4 MRSA (peripheraL) 09/21 BCx 4/ MRSA -09/14 2d Echo: no vegetations - HD cath removed 09/22/19 Tip Cx - pend Leukocytosis, increasing Fever; improving -09/18 CXR: Worsening interstitial edema -09/14 CXR: . Unchanged right IJ approach dual-lumen catheter, tip near the cavoatrial junction. Similar-appearing, perhaps mildly improved right small- moderate and left small pleural effusions with passive atelectasis or consolidation, correlate clinically. Unchanged cardiomegaly. Unchanged low lung volumes. 09/14 Bcx NTD CHF exacerbation Troponinemia Elevated LFts; increasing -Abd US: Portal hypertension suspected with ascites, splenomegaly and abnormal Doppler evaluation of the main portal vein. Thickened gallbladder wall nonspecific. Mild ascites. Splenomegaly. 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 Left kidney not seen well. HTN GERD Dm2 c/w nephropathy neuropathy and gastroparesis severe CM w/ EF 15-20% ESRD on HD MWF via R side permacath [facility] resident Plan: -Cont empiric IV Vancomycin #6 for MRSA bacteremia -09/20 SP Cefepime #2 -Remove HD catheter after dialysis and do line holidy -f/u cx -Monitor CBC/CMP, temperaturese -Cdiff if diarrhea -hep panel, HIV ab -repeat Bcx x2 today -JAMES to eval for endocarditis Thank you for this consultation. Will continue to follow along with you. Discussed with RN Subjective Allergies: Coded Allergies: No Known Allergies (Unverified , 07/06/19) Subjective Afebrile Leukocytosis improved a little Cath removed 09/22/19 Blood Cx still pos Objective Vital Signs Last 24 Hour Vital Signs Date Time Temp Pulse Resp B/P (MAP) Pulse Ox O2 Delivery O2 Flow Rate FiO2 09/23/19 09:14 68 138/66 09/23/19 09:14 138/66 09/23/19 09:13 138/66 09/23/19 07:50 96 Nasal Cannula 2.0 28 09/23/19 04:00 97.6 64 19 128/62 (84) 96 09/23/19 04:00 60 12/1/19 02:46 43 09/23/19 00:00 96.7 60 18 148/69 (95) 95 09/22/19 21:00 42 156/65 09/22/19 21:00 Nasal Cannula 2.0 09/22/19 20:00 48 09/22/19 20:00 98 Nasal Cannula 2.0 28 09/22/19 20:00 96.7 57 19 150/61 (90) 98 09/22/19 17:32 127/53 09/22/19 17:32 127/53 09/22/19 16:00 97.8 56 17 127/53 (77) 95 09/22/19 15:31 41 09/22/19 14:00 97.9 09/22/19 11:46 97.9 68 18 132/54 (80) 97 09/22/19 11:36 48 Height (Feet): 5 Height (Inches): 8.00 Weight (Pounds): 228 Objective GENERAL: NAD HEAD AND NECK: NCAT, MMM, EOMI LUNGS: Good air entry. No wheezing or rhonchi. HEART: S1, S2. Distant heart sounds. ABDOMEN: Soft, nondistended, and nontender. Microbiology Date/Time Source Procedure Growth Status 09/21/19 10:55 Blood Blood Culture - Preliminary Staphylococcus Aureus Resulted 09/21/19 10:45 Blood Blood Culture - Preliminary Staphylococcus Aureus Resulted 09/22/19 13:45 Catheter Site Catheter Tip Culture - Preliminary Resulted Current Medications Medications (Trade) Dose Ordered Sig/Trav Route PRN Reason Start Time Stop Time Status Last Admin Dose Admin Acetaminophen (Tylenol) 500 mg Q6H PRN ORAL Mild Pain (Pain Scale 1-3) 09/15/19 00:15 10/14/19 22:59 09/21/19 01:25 Acetaminophen (Tylenol) 650 mg Q4H PRN ORAL Mild Pain (Pain Scale 1-3) 09/14/19 23:00 10/14/19 22:59 09/22/19 13:30 Albuterol/ Ipratropium (Albuterol/ Ipratropium) 3 ml Q4H PRN HHN Shortness of Breath 09/23/19 09:30 09/28/19 09:29 Aspirin (ASA) 81 mg DAILY ORAL 09/15/19 09:00 10/15/19 08:59 09/23/19 09:13 Atorvastatin Calcium (Lipitor) 20 mg BEDTIME ORAL 09/15/19 21:00 10/15/19 20:59 09/22/19 21:40 Carvedilol (Coreg) 6.25 mg EVERY 12 HOURS ORAL 09/22/19 21:00 10/22/19 20:59 09/23/19 09:14 Clonidine HCl (Catapres Tab) 0.1 mg EVERY 4 HOURS PRN ORAL For High Blood Pressure 09/15/19 01:00 10/15/19 00:59 Dextrose (Dextrose 50%) 25 ml Q30M PRN IV Hypoglycemia 09/14/19 23:00 10/14/19 22:59 Dextrose (Dextrose 50%) 50 ml Q30M PRN IV Hypoglycemia 09/14/19 23:00 10/14/19 22:59 Diphenhydramine HCl (Benadryl) 25 mg Q6H PRN ORAL Itching/Pruritis 09/14/19 23:00 10/14/19 22:59 09/22/19 03:22 Docusate Sodium (Colace) 100 mg BID ORAL 09/15/19 09:00 10/15/19 08:59 09/23/19 09:13 Epoetin Garrett (Epoetin Garrett(ESRD on dialysis)) 3,000 unit SUBQ 09/17/19 21:00 10/17/19 20:59 09/21/19 20:49 Epoetin Garrett (Epoetin Garrett(ESRD on dialysis)) 4,000 unit SUBQ 09/17/19 21:00 10/17/19 20:59 09/21/19 20:49 Famotidine (Pepcid) 20 mg DAILY ORAL 09/15/19 09:00 10/15/19 08:59 09/23/19 09:14 Heparin Sodium (Porcine) (Heparin 5000 units/ml) 5,000 units EVERY 12 HOURS SUBQ 09/15/19 13:45 10/15/19 13:44 Hydralazine HCl (Apresoline) 25 mg BID ORAL 09/15/19 18:00 10/15/19 08:59 09/23/19 09:13 Insulin Aspart (NovoLOG) BEFORE MEALS AND HS SUBQ 09/15/19 06:30 10/15/19 06:29 09/22/19 16:30 Isosorbide Dinitrate (Isordil) 10 mg BID ORAL 09/15/19 18:00 10/15/19 17:59 09/23/19 09:14 Lorazepam (Ativan 2mg/ml 1ml) 0.5 mg Q6H PRN IV For Anxiety 09/22/19 12:45 09/29/19 12:44 09/22/19 13:21 Nitroglycerin (Ntg) 0.4 mg Q5M PRN SL Prn Chest Pain 09/14/19 23:00 10/14/19 22:59 09/15/19 11:03 Ondansetron HCl (Zofran) 4 mg Q6H PRN ORAL Nausea & Vomiting 09/14/19 23:00 10/14/19 22:59 09/19/19 18:02 Pantoprazole (Protonix) 40 mg DAILY ORAL 09/15/19 09:00 10/15/19 08:59 09/23/19 09:14 Polyethylene Glycol (Miralax) 17 gm BEDTIME PRN ORAL Constipation 09/14/19 23:00 10/14/19 22:59 Polyethylene Glycol (Miralax) 17 gm DAILYPRN PRN ORAL Constipation 09/14/19 23:00 10/14/19 22:59 Prochlorperazine (Compazine) 10 mg Q6H PRN IVP Nausea & Vomiting 09/14/19 23:00 10/14/19 22:59 Triamcinolone (Kenalog) 1 applic TID TOPIC 09/15/19 09:00 10/15/19 08:59 09/23/19 09:15 Vancomycin HCl (Vanco rx to dose) 1 ea DAILY PRN MISC Per rx protocol 09/18/19 19:15 10/18/19 19:14 Vitamin B Complex/ Vit C/Folic Acid (Nephrovite) 1 tab DAILY ORAL 09/15/19 09:00 10/15/19 08:59 09/23/19 09:14 Armond Beltran MD Sep 23, 2019 10:07
[2019-09-23 12:00] VITALS: BP 122/53
--- NOTE | 2019-09-23 12:14 | Nephrology Progress Note ---
Assessment/Plan Problem List: (1) ESRD (end stage renal disease) on dialysis (2) Anemia (3) HTN (hypertension) (4) Diabetes mellitus (5) CHF (congestive heart failure) (6) Bacteremia Plan Discussed with Montserrat Martin NP Hold HD cont Epogen abxs Subjective Subjective In NAD Objective Objective Last 24 Hour Vital Signs Date Time Temp Pulse Resp B/P (MAP) Pulse Ox O2 Delivery O2 Flow Rate FiO2 09/23/19 09:14 68 138/66 09/23/19 09:14 138/66 09/23/19 09:13 138/66 09/23/19 07:50 96 Nasal Cannula 2.0 28 09/23/19 04:00 97.6 64 19 128/62 (84) 96 09/23/19 04:00 60 09/23/19 02:46 43 09/23/19 00:00 96.7 60 18 148/69 (95) 95 09/22/19 21:00 42 156/65 09/22/19 21:00 Nasal Cannula 2.0 09/22/19 20:00 48 09/22/19 20:00 98 Nasal Cannula 2.0 28 09/22/19 20:00 96.7 57 19 150/61 (90) 98 09/22/19 17:32 127/53 09/22/19 17:32 127/53 09/22/19 16:00 97.8 56 17 127/53 (77) 95 09/22/19 15:31 41 09/22/19 14:00 97.9 Intake and Output 09/22/19 09/23/19 19:00 07:00 Intake Total 200 ml 100 ml Balance 200 ml 100 ml Intake Oral 200 ml 100 ml Height (Feet): 5 Height (Inches): 8.00 Weight (Pounds): 228 Cardiovascular: normal rate Respiratory/Chest: lungs clear Justin Hutson MD Sep 23, 2019 12:14
--- NOTE | 2019-09-23 13:00 | NUR ---
NURSE NOTES: The patient is stable without acute distress or shortness of breath. Will continue plan of care.
--- NOTE | 2019-09-23 13:22 | Surgery Progress Note ---
Surgery Progress Note Subjective Procedure Performed Removal of right tunneled permacath Additional Comments no acute events site c/d/i no hematoma no bleeding stable Objective Last 24 Hour Vital Signs Date Time Temp Pulse Resp B/P (MAP) Pulse Ox O2 Delivery O2 Flow Rate FiO2 09/23/19 09:14 68 138/66 09/23/19 09:14 138/66 09/23/19 09:13 138/66 09/23/19 07:50 96 Nasal Cannula 2.0 28 09/23/19 04:00 97.6 64 19 128/62 (84) 96 09/23/19 04:00 60 09/23/19 02:46 43 09/23/19 00:00 96.7 60 18 148/69 (95) 95 09/22/19 21:00 42 156/65 09/22/19 21:00 Nasal Cannula 2.0 09/22/19 20:00 48 09/22/19 20:00 98 Nasal Cannula 2.0 28 09/22/19 20:00 96.7 57 19 150/61 (90) 98 09/22/19 17:32 127/53 09/22/19 17:32 127/53 09/22/19 16:00 97.8 56 17 127/53 (77) 95 09/22/19 15:31 41 09/22/19 14:00 97.9 I&O Intake and Output 09/22/19 09/23/19 19:00 07:00 Intake Total 200 ml 100 ml Balance 200 ml 100 ml Intake Oral 200 ml 100 ml Dressing: dry Wound: clean Cardiovascular: RSR Respiratory: clear Abdomen: soft, present bowel sounds Extremities: cyanosis - index right dip distal Plan Problems: (1) Bacteremia Assessment & Plan: This is a 63-year-old male with multi-medical comorbidities end-stage renal disease on dialysis currently through right tunneled catheter who now has bacteremia MRSA staph aureus and worsening leukocytosis. Was scheduled to have catheter removed and unfortunately is not been done so far and I was called to assist with care and management. Patient seen, patient evaluated, chart reviewed. Given these above findings catheter should be removed as soon as possible if not prior. Furthermore abnormal LFTs with unknown etiology needs further work-up. Pending coags prior to removal of catheter to ensure not coagulopathic and safe for removal -coags noted. line removed 09/22. tip sent for cx Please see procedure note once removed pending cx Ultrasound abdomen Trend LFTs IV antibiotics as per infectious disease Trend labs Thank you will follow with recommendations (2) ESRD needing dialysis (3) Noncompliance with renal dialysis Assessment & Plan: Pt noted to have dry necrotic tip of R index finger. No erythema or swelling of digit noted. Dark discoloration noted to sacrum . Maroon discoloration without induration or fluctuance noted to R buttocks(L) 3.5cm x (W).5cm.Pt denied tenderness when palpated. Maroon discoloration without induration or fluctuance noted to R ischium.non- tender when palpated.(L)0.8cm x (W)2cm. Maroon discoloration without induration noted to L ischium.(L)3cm x (W)3.5cm.Non -tender when palpated. At base of scrotum pt noted to have scattered purpuric areas in circular pattern at base of scrotum , with one large purpuric area in center measuring(L) 3.5cm x (W)1cm. Per staff pt presented on admission with enlarged scrotum which has since resolved. R and L heels are dry firm and blanchable. Tx.Plan: Apply Cavilon Skin Barrier to base of Scrotum. Cover with Optifoam drsg. Change every 3 days and prn. Apply Moisture Barrier Paste to Sacrum. Cover with Optifoam drsg. Change every 3 days and prn. Apply Moisture Barrier Paste to R and L ischium. Cover each site with Optifoam drsg. Change every 3 days and prn. Swab R index finger with Betadine Daily. Leave open to Air. Apply Cavilon Skin Barrier to Both Heels. Cover each heel with Optifoam drsg. Change every 7 days and prn. Reposition at least every 2hours or as tolerated. Off-load heels with Pillow. APM/ROSI Mattress overlay. (4) Abnormal LFTs Assessment & Plan: The liver is unremarkable. The main portal vein shows abnormal pulsatile waveform with flow both antegrade and retrograde. There is mild ascites. There is a moderate right pleural effusion. No biliary ductal dilatation is identified. There is thickening of the wall the gallbladder. No gallstones are identified. CBD is 6.6 mm. The spleen is enlarged measuring between 13 and 14 cm. Kidneys are echogenic. There is no hydronephrosis appreciated. The left kidney is not well seen. Pancreas is also not well seen. IMPRESSION: Portal hypertension suspected with ascites, splenomegaly and abnormal Doppler evaluation of the main portal vein. Thickened gallbladder wall nonspecific. Mild ascites Splenomegaly Right pleural effusion para graft medical renal disease suspected. Left kidney not seen well. Ciro Hurtado Sep 23, 2019 13:22
--- NOTE | 2019-09-23 14:11 | Internal Med Progress Note ---
Subjective Date of Service: Sep 23, 2019 Physician Name Crisostomo,Kuldip Attending Physician Geovany Roblero MD Current Medications Medications (Trade) Dose Ordered Sig/Trav Route PRN Reason Start Time Stop Time Status Last Admin Dose Admin Acetaminophen (Tylenol) 500 mg Q6H PRN ORAL Mild Pain (Pain Scale 1-3) 09/15/19 00:15 10/14/19 22:59 09/21/19 01:25 Acetaminophen (Tylenol) 650 mg Q4H PRN ORAL Mild Pain (Pain Scale 1-3) 09/14/19 23:00 10/14/19 22:59 09/22/19 13:30 Albuterol/ Ipratropium (Albuterol/ Ipratropium) 3 ml Q4H PRN HHN Shortness of Breath 09/23/19 09:30 09/28/19 09:29 Aspirin (ASA) 81 mg DAILY ORAL 09/15/19 09:00 10/15/19 08:59 09/23/19 09:13 Atorvastatin Calcium (Lipitor) 20 mg BEDTIME ORAL 09/15/19 21:00 10/15/19 20:59 09/22/19 21:40 Carvedilol (Coreg) 6.25 mg EVERY 12 HOURS ORAL 09/22/19 21:00 10/22/19 20:59 09/23/19 09:14 Clonidine HCl (Catapres Tab) 0.1 mg EVERY 4 HOURS PRN ORAL For High Blood Pressure 09/15/19 01:00 10/15/19 00:59 Dextrose (Dextrose 50%) 25 ml Q30M PRN IV Hypoglycemia 09/14/19 23:00 10/14/19 22:59 Dextrose (Dextrose 50%) 50 ml Q30M PRN IV Hypoglycemia 09/14/19 23:00 10/14/19 22:59 Diphenhydramine HCl (Benadryl) 25 mg Q6H PRN ORAL Itching/Pruritis 09/14/19 23:00 10/14/19 22:59 09/22/19 03:22 Docusate Sodium (Colace) 100 mg BID ORAL 09/15/19 09:00 10/15/19 08:59 09/23/19 09:13 Epoetin Garrett (Epoetin Garrett(ESRD on dialysis)) 3,000 unit TUE-TUE-TUE SUBQ 09/17/19 21:00 10/17/19 20:59 09/21/19 20:49 Epoetin Garrett (Epoetin Garrett(ESRD on dialysis)) 4,000 unit TUE-TUE-TUE SUBQ 09/17/19 21:00 10/17/19 20:59 09/21/19 20:49 Famotidine (Pepcid) 20 mg DAILY ORAL 09/15/19 09:00 10/15/19 08:59 09/23/19 09:14 Heparin Sodium (Porcine) (Heparin 5000 units/ml) 5,000 units EVERY 12 HOURS SUBQ 09/15/19 13:45 10/15/19 13:44 Hydralazine HCl (Apresoline) 25 mg BID ORAL 09/15/19 18:00 10/15/19 08:59 09/23/19 09:13 Insulin Aspart (NovoLOG) BEFORE MEALS AND HS SUBQ 09/15/19 06:30 10/15/19 06:29 09/23/19 12:14 Isosorbide Dinitrate (Isordil) 10 mg BID ORAL 09/15/19 18:00 10/15/19 17:59 09/23/19 09:14 Lorazepam (Ativan 2mg/ml 1ml) 0.5 mg Q6H PRN IV For Anxiety 09/22/19 12:45 09/29/19 12:44 09/22/19 13:21 Nitroglycerin (Ntg) 0.4 mg Q5M PRN SL Prn Chest Pain 09/14/19 23:00 10/14/19 22:59 09/15/19 11:03 Ondansetron HCl (Zofran) 4 mg Q6H PRN ORAL Nausea & Vomiting 09/14/19 23:00 10/14/19 22:59 09/19/19 18:02 Pantoprazole (Protonix) 40 mg DAILY ORAL 09/15/19 09:00 10/15/19 08:59 09/23/19 09:14 Polyethylene Glycol (Miralax) 17 gm BEDTIME PRN ORAL Constipation 09/14/19 23:00 10/14/19 22:59 Polyethylene Glycol (Miralax) 17 gm DAILYPRN PRN ORAL Constipation 09/14/19 23:00 10/14/19 22:59 Prochlorperazine (Compazine) 10 mg Q6H PRN IVP Nausea & Vomiting 09/14/19 23:00 10/14/19 22:59 Triamcinolone (Kenalog) 1 applic TID TOPIC 09/15/19 09:00 10/15/19 08:59 09/23/19 12:15 Vancomycin HCl (Vanco rx to dose) 1 ea DAILY PRN MISC Per rx protocol 09/18/19 19:15 10/18/19 19:14 Vitamin B Complex/ Vit C/Folic Acid (Nephrovite) 1 tab DAILY ORAL 09/15/19 09:00 10/15/19 08:59 09/23/19 09:14 Allergies: Coded Allergies: No Known Allergies (Unverified , 07/06/19) ROS Limited/Unobtainable: No Constitutional: Reports: no symptoms HEENT: Reports: no symptoms Cardiovascular: Reports: no symptoms Respiratory: Reports: no symptoms Gastrointestinal/Abdominal: Reports: no symptoms Genitourinary: Reports: no symptoms Neurologic/Psychiatric: Reports: no symptoms Subjective 63 YO M admitted with chest pain. Now MRSA sepsis. S/P removal of hemodialysis cath 09/22/19. Cover for Int Med-dr Roblero Objective Last Vital Signs Date Time Temp Pulse Resp B/P (MAP) Pulse Ox O2 Delivery O2 Flow Rate FiO2 09/23/19 09:14 68 138/66 09/23/19 07:50 96 Nasal Cannula 2.0 28 09/23/19 04:00 97.6 19 Microbiology Date/Time Source Procedure Growth Status 09/21/19 10:55 Blood Blood Culture - Preliminary Staphylococcus Aureus Resulted 09/21/19 10:45 Blood Blood Culture - Preliminary Staphylococcus Aureus Resulted 09/22/19 13:45 Catheter Site Catheter Tip Culture - Preliminary Resulted Intake and Output 09/22/19 09/23/19 19:00 07:00 Intake Total 200 ml 100 ml Balance 200 ml 100 ml Intake Oral 200 ml 100 ml Objective Objective GENERAL: The patient is awake and responsive, in no acute distress. HEAD AND NECK: Pupils are equally reactive to light. Extraocular movements intact. Neck was supple. Positive JVD. LUNGS: Good air entry. No wheezing or rhonchi. Decreased air in the bases. HEART: S1, S2. Distant heart sounds. No murmur or gallop. Chest wall has a PermCath. No sign of infection. ABDOMEN: Soft, nondistended, and nontender. Positive bowel sounds. EXTREMITIES: +3 edema in bilateral lower extremity. No cyanosis or clubbing. PELVIC: Scrotum has edema and penile edema was noted. NEUROLOGIC: Cranial nerves II through XII grossly, unsteady gait. Assessment/Plan Assessment/Plan Assessment/Plan Assessment/Plan ASSESSMENT: 1. Chest pain with mild elevated Troponin, possible acute coronary syndrome. 2. Congestive heart failure with reduced ejection fraction. 3. End-stage renal disease, on hemodialysis, Tuesday, Tuesday, and Tuesday. 4. Diabetes type 2 with diabetic gastroparesis as well as diabetic neuropathy and diabetic nephropathy. 5. Gastroesophageal reflux disease. 6. Hypertension. 7. Mobitz type 1 first-degree AV block. 8. Anasarca. 9. Pedal edema. 10. Severe cardiomyopathy. LVEF=15-20%; repeat=45% 11. Systemic hypertension. 12. Dialysis noncompliance. 13. Mitral as well as tricuspid regurgitation. 14. Severe anemia 15. Sepsis=MRSA PLAN: On telemetry. Dr. Garcia from Cardiology Electrophysiology consultation; Dr. Mercer, Pulmonary Critical Care; Dr. Justin Hutson from Nephrology. Hemodialysis 09/21/19 Code status at per POLST is DNR. DVT prophylaxis, heparin subcutaneous. Accu-Chek, sliding scale. S/P Transfusion 2 units PRBC on 09/20/19 S/P removal of hemodialysis cath 09/22/19-await culture results Kuldip Crisostomo MD Sep 23, 2019 14:11
[2019-09-23 15:34] LABS: HEMATOCRIT 32.3 % (42.0-52.0); MEAN CORPUSCULAR VOLUME 92 FL (80-99); PLATELET COUNT 112 K/UL (150-450); RED BLOOD COUNT 3.53 M/UL (4.70-6.10); RED CELL DISTRIBUTION WIDTH 16.9 % (11.6-14.8); WHITE BLOOD COUNT 13.4 K/UL (4.8-10.8)
[2019-09-23 15:35] LABS: ANION GAP 9 mmol/L (5-15); BLOOD UREA NITROGEN 80 mg/dL (7-18); CALCIUM 9.9 MG/DL (8.5-10.1); CARBON DIOXIDE 27 MMOL/L (21-32); CHLORIDE 100 MMOL/L (98-107); CREATININE 6.5 MG/DL (0.55-1.30); POTASSIUM 4.7 MMOL/L (3.5-5.1); SODIUM 136 MMOL/L (136-145)
[2019-09-23 16:00] VITALS: BP 140/60
--- NOTE | 2019-09-23 18:00 | NUR ---
NURSE NOTES: The patient is resting on the bed without acute distress or shortness of breath. The patient's bed in the lowest position, call light in reach, and fall and aspiration precaution reinforced. IV site intact and patent. Oxygen therapy per order. Will continue plan of care.
--- NOTE | 2019-09-23 19:20 | NUR ---
HAND-OFF: Report given to ANTONY Benjamin. The patient is resting on the bed without acute distress or shortness of breath. The patient's bed in the lowest position, call light in reach, and fall and aspiration precaution reinforced. IV site intact and patent. Oxygen therapy as ordered. Endorsed plan of care.
[2019-09-23] MEDS: Atorvastatin 20mg tab ORAL SCH (21:00)
[2019-09-23] MEDS: LORazepam Inj 2mg/ml 1ml IV PRN (22:11)
[2019-09-24 04:00] VITALS: BP 136/69
[2019-09-24] MEDS: NovoLOG Insulin Flexpen SUBQ SCH ×4 (06:08→21:48)
--- NOTE | 2019-09-24 07:00 | NUR ---
HAND-OFF: Report given to Dorothea HARDY.
--- NOTE | 2019-09-24 07:10 | NUR ---
NURSE NOTES: Received report from ANTONY Benjamin. The patient is resting on the bed without acute distress or shortness of breath. The patient's bed in the lowest position, call light in reach, and fall and aspiration precaution reinforced. IV site intact and patent. Oxygen therapy per order. Will continue plan of care.
[2019-09-24 07:32] LABS: HEMATOCRIT 32.6 % (42.0-52.0); HEMOGLOBIN 10.2 G/DL (14.2-18.0); MEAN CORPUSCULAR VOLUME 92 FL (80-99); PLATELET COUNT 113 K/UL (150-450); RED BLOOD COUNT 3.54 M/UL (4.70-6.10); RED CELL DISTRIBUTION WIDTH 16.8 % (11.6-14.8); WHITE BLOOD COUNT 14.4 K/UL (4.8-10.8)
[2019-09-24 07:50] LABS: ANION GAP 11 mmol/L (5-15); BLOOD UREA NITROGEN 84 mg/dL (7-18); CALCIUM 9.9 MG/DL (8.5-10.1); CARBON DIOXIDE 26 MMOL/L (21-32); CHLORIDE 100 MMOL/L (98-107); CREATININE 6.9 MG/DL (0.55-1.30); SODIUM 136 MMOL/L (136-145)
[2019-09-24 08:00] VITALS: BP 156/72
--- NOTE | 2019-09-24 08:00 | NUR ---
NURSE NOTES: Notified Dr. Granado regarding uptrend of WBC from 13.4 to 14.4. Clarification made with JAMES order. Per cardiology department, Dr. Granado needs to talk to Dr. Humphrey so that the patient can do JAMES. Informed the communication made with hydroelectric powerplant supervisor department to Dr. Granado. The patient is stable without acute distress or shortness of breath. Will continue plan of care.
[2019-09-24] MEDS: Heparin 5000 units/ml inj SUBQ SCH ×2 (09:00→20:41)
[2019-09-24] MEDS: Aspirin Baby 81mg ORAL SCH (09:24)
[2019-09-24] MEDS: Docusate 100mg cap ORAL SCH ×2 (09:24→18:26)
[2019-09-24] MEDS: HydrALAZINE 25mg tab ORAL SCH ×2 (09:24→18:27)
[2019-09-24] MEDS: Carvedilol 6.25mg Tab ORAL SCH ×2 (09:24→21:45)
[2019-09-24] MEDS: Triamcinolone 0.1% oint TOPIC SCH ×3 (09:25→18:27)
[2019-09-24] MEDS: Nephrovite tab (Rena-Vite) ORAL SCH (09:25)
--- NOTE | 2019-09-24 09:28 | NUR ---
RADIOLOGY: CXR COMPLETED 0920HRS. NF
--- NOTE | 2019-09-24 11:00 | NUR ---
NURSE NOTES: Notified Dr. Garcia regarding patient's cardiac rhythm, which are SR w/ 1 degree AVB or 2nd degree type II. Asked Dr. Garcia for possible plan of defibrillator placement per physician's note. Per Dr. Garcia, still waiting for final ECHO result prior to making final decision. The patient is stable without acute distress or shortness of breath. Will continue plan of care.
--- NOTE | 2019-09-24 11:38 | NUR ---
CASE MANAGEMENT: REVIEW 09/24/19 SI: ESRD ON HD . SEPSIS WITH MRSA BACTEREMIA . PULMONARY EDEMA . CHF . R.PLEURAL EFFUSION . DM2 98.3 66 18 156/72 95% NC/2L WBC 14.4 RBC 3.54 H/H 10.2/32.6 BUN 84 CREAT 6.9 IS: HYDRALAZINE PO BID ISORDIL PO BID COREG PO BID EPOETIN SQ MWF EPOETIN SQ MWF NOVOLOG SQ AC&HS PROTONIX PO QD ASA PO QD NEPHROVITE PO QD KENALOG TP TID : 2E TELE UNIT PLAN: 09/22/19 REMOVED HD CATH CATH TIP = + [facility] CLEARED BY ID FOR NEW HD CATH PLACEMENT DCP: PATIENT IS FROM [facility]
--- NOTE | 2019-09-24 11:40 | Cardiac Electrophysiology PN ---
Assessment/Plan Assessment/Plan 1. Troponin elevation but levels are flat, likely due to renal failure Continue aspirin, Coreg and Lipitor 2. Severe cardiomyopathy with EF of 15% to 20%. Repeat preliminary echo showed EF 45%! Continue Coreg, hydralazine, HD and Isordil. Awaiting final Echo report. If ejection fraction less than 35%, will need defibrillator implantation after ID clearance 3. Hypertension. Continue current heart failure therapy. 4. Bradycardia. Better with decreasing Coreg to 6.25 bid 5. End-stage renal disease, on hemodialysis. HD catheter removed 6. Diabetes. 7. MRSA bacteremia- likely from HD cath- r/o endocarditis -09/18 Bcx 01/25 MRSA (from HD cath); 09/19 BCx 01/25 MRSA (peripheraL) 09/21 BCx 01/25 MRSA -09/14 2d Echo: no vegetations - HD cath removed 09/22/19. May need JAMES DW RN Subjective Subjective In SR with first degree AVB and Wenckebach. No CP or SOB. Objective Last 24 Hour Vital Signs Date Time Temp Pulse Resp B/P (MAP) Pulse Ox O2 Delivery O2 Flow Rate FiO2 09/24/19 09:24 72 156/72 09/24/19 09:24 156/72 09/24/19 09:24 156/72 09/24/19 08:23 72 16 98 Nasal Cannula 2.0 28 09/24/19 08:23 98 Nasal Cannula 2.0 28 09/24/19 08:00 98.3 66 18 156/72 (100) 95 09/24/19 04:00 67 09/24/19 04:00 97.9 72 19 136/69 (91) 97 09/24/19 00:00 60 09/23/19 21:00 Nasal Cannula 2.0 09/23/19 21:00 62 140/60 09/23/19 20:09 62 18 97 Nasal Cannula 2.0 28 09/23/19 20:08 97 Nasal Cannula 2.0 28 09/23/19 20:00 59 09/23/19 17:18 140/60 09/23/19 17:17 140/60 09/23/19 16:00 97.7 60 20 140/60 (86) 97 09/23/19 16:00 62 09/23/19 12:00 63 09/23/19 12:00 98.9 62 20 122/53 (76) 96 Intake and Output 09/23/19 09/24/19 18:59 06:59 Intake Total 630 ml 120 ml Balance 630 ml 120 ml Intake Oral 630 ml 120 ml Laboratory Tests Test 09/23/19 14:40 09/24/19 06:35 White Blood Count 13.4 K/UL (4.8-10.8) H 14.4 K/UL (4.8-10.8) H Red Blood Count 3.53 M/UL (4.70-6.10) L 3.54 M/UL (4.70-6.10) L Hemoglobin 10.0 G/DL (14.2-18.0) L 10.2 G/DL (14.2-18.0) L Hematocrit 32.3 % (42.0-52.0) L 32.6 % (42.0-52.0) L Mean Corpuscular Volume 92 FL (80-99) 92 FL (80-99) Mean Corpuscular Hemoglobin 28.4 PG (27.0-31.0) 28.9 PG (27.0-31.0) Mean Corpuscular Hemoglobin Concent 31.0 G/DL (32.0-36.0) L 31.4 G/DL (32.0-36.0) L Red Cell Distribution Width 16.9 % (11.6-14.8) H 16.8 % (11.6-14.8) H Platelet Count 112 K/UL (150-450) L 113 K/UL (150-450) L Mean Platelet Volume 5.8 FL (6.5-10.1) L 5.6 FL (6.5-10.1) L Neutrophils (%) (Auto) % (45.0-75.0) % (45.0-75.0) Lymphocytes (%) (Auto) % (20.0-45.0) % (20.0-45.0) Monocytes (%) (Auto) % (1.0-10.0) % (1.0-10.0) Eosinophils (%) (Auto) % (0.0-3.0) % (0.0-3.0) Basophils (%) (Auto) % (0.0-2.0) % (0.0-2.0) Differential Total Cells Counted 100 100 Neutrophils % (Manual) 86 % (45-75) H 83 % (45-75) H Lymphocytes % (Manual) 4 % (20-45) L 9 % (20-45) L Monocytes % (Manual) 7 % (1-10) 5 % (1-10) Eosinophils % (Manual) 2 % (0-3) 2 % (0-3) Basophils % (Manual) 0 % (0-2) 1 % (0-2) Band Neutrophils 1 % (0-8) 0 % (0-8) Platelet Estimate Decreased L Decreased L Platelet Morphology Normal Normal Polychromasia 1+ Hypochromasia 1+ 1+ Anisocytosis 1+ 1+ Sodium Level 136 MMOL/L (136-145) 136 MMOL/L (136-145) Potassium Level 4.7 MMOL/L (3.5-5.1) 5.0 MMOL/L (3.5-5.1) Chloride Level 100 MMOL/L (98-107) 100 MMOL/L (98-107) Carbon Dioxide Level 27 MMOL/L (21-32) 26 MMOL/L (21-32) Anion Gap 9 mmol/L (5-15) 11 mmol/L (5-15) Blood Urea Nitrogen 80 mg/dL (7-18) H 84 mg/dL (7-18) H Creatinine 6.5 MG/DL (0.55-1.30) H 6.9 MG/DL (0.55-1.30) H Estimat Glomerular Filtration Rate 8.7 mL/min (>60) 8.2 mL/min (>60) Glucose Level 155 MG/DL (74-106) H 120 MG/DL (74-106) H Calcium Level 9.9 MG/DL (8.5-10.1) 9.9 MG/DL (8.5-10.1) Random Vancomycin Level 27.1 ug/mL Microbiology Date/Time Source Procedure Growth Status 09/22/19 13:45 Catheter Site Catheter Tip Culture - Preliminary Staphylococcus Aureus Resulted Objective HEAD AND NECK: Mild JVD. LUNGS: Decreased breath sounds. CARDIOVASCULAR: Regular S1 and S2 with no gallop or murmur. ABDOMEN: Soft. EXTREMITIES: 2+ pitting edema and scrotal edema. Guero Garcia MD Sep 24, 2019 11:40
--- NOTE | 2019-09-24 11:49 | Cardiology Report ---
APPROVED REPORT EXAM: Two-dimensional and M-mode echocardiogram with Doppler and color Doppler. INDICATION Coronary artery disease M-Mode DIMENSIONS IVSd1.4 (0.7-1.1cm)Left Atrium (MM)4.5 (1.6-4.0cm) LVDd4.1 (3.5-5.6cm)Aortic Root3.6 (2.0-3.7cm) PWd1.3 (0.7-1.1cm)Aortic Cusp Exc.1.6 (1.5-2.0cm) LVDs2.9 (2.5-4.0cm) PWs1.9 cm Normal left ventricular chamber size and function. Mobile intra-atrial septum with lipomatous hypertrophy Left ventricular ejection fraction estimated to be 55%. There is evidence for increased intracardiac filling pressure. Mild left ventricular hypertrophy. No evidence of pericardial effusion. Mild bi-atrial enlargement. Right ventricular chamber sizes is within normal limits. Focal aortic valve sclerosis with adequate cusp excursion. Mildly thickened mitral valve leaflets with normal excursion. Moderate mitral annulus and aortic root calcification. Normal pulmonic valve structure. Normal tricuspid valve structure. IVC dilated at 2.4 cm without physiological collapse, suggestive of increased RA pressure. A color flow and spectral Doppler study was performed and revealed: No aortic regurgitation. Mild mitral regurgitation. Mitral diastolic velocities suggest moderate left ventricular diastolic dysfunction or pseudo-normal LV physioplogy (Grade II). Moderate tricuspid regurgitation. Tricuspid systolic velocities suggests peak right ventricular systolic pressure of 53 mmHg, consistent with moderate pulmonary hypertension. Trace pulmonic regurgitation present.
--- NOTE | 2019-09-24 11:58 | Infectious Diseases Prog Note ---
Assessment/Plan Assessment/Plan Assessment: Sepsis MRSA bacteremia- from HD cath- r/o endocarditis -09/18 Bcx 4/ MRSA (from HD cath); 09/19 BCx 4/ MRSA (peripheraL) 09/21 BCx / MRSA -09/14 2d Echo: no vegetations - HD cath removed 09/22/19 Tip Cx - S. aureus Leukocytosis, increasing Fever; SP -09/18 CXR: Worsening interstitial edema -09/14 CXR: . Unchanged right IJ approach dual-lumen catheter, tip near the cavoatrial junction. Similar-appearing, perhaps mildly improved right small- moderate and left small pleural effusions with passive atelectasis or consolidation, correlate clinically. Unchanged cardiomegaly. Unchanged low lung volumes. 09/14 Bcx NTD CHF exacerbation Troponinemia Elevated LFts; increasing -Abd US: Portal hypertension suspected with ascites, splenomegaly and abnormal Doppler evaluation of the main portal vein. Thickened gallbladder wall nonspecific. Mild ascites. Splenomegaly. 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 Left kidney not seen well. -Hiv sc, acute hep panel neg HTN GERD Dm2 c/w nephropathy neuropathy and gastroparesis severe CM w/ EF 15-20% ESRD on HD MWF via R side permacath [facility] resident Plan: -Cont empiric IV Vancomycin #7 for MRSA bacteremia -09/20 SP Cefepime #2 -Await 48-72hrs of negative blood cultures prior to insertion of permanent HD cath -f/u cx -Monitor CBC/CMP, temperaturese -Cdiff if diarrhea -f/u repeat Bcx x2 -JAMES to eval for endocarditis Thank you for this consultation. Will continue to follow along with you. Discussed with RN Subjective Allergies: Coded Allergies: No Known Allergies (Unverified , 07/06/19) Subjective afebrile leukocytosis HD cath removed on Tuesday repeat Bcx post cath removal pending Objective Vital Signs Last 24 Hour Vital Signs Date Time Temp Pulse Resp B/P (MAP) Pulse Ox O2 Delivery O2 Flow Rate FiO2 09/24/19 09:24 72 156/72 09/24/19 09:24 156/72 09/24/19 09:24 156/72 09/24/19 08:23 72 16 98 Nasal Cannula 2.0 28 09/24/19 08:23 98 Nasal Cannula 2.0 28 09/24/19 08:00 98.3 66 18 156/72 (100) 95 09/24/19 04:00 67 09/24/19 04:00 97.9 72 19 136/69 (91) 97 09/24/19 00:00 60 09/23/19 21:00 Nasal Cannula 2.0 09/23/19 21:00 62 140/60 09/23/19 20:09 62 18 97 Nasal Cannula 2.0 28 09/23/19 20:08 97 Nasal Cannula 2.0 28 09/23/19 20:00 59 09/23/19 17:18 140/60 09/23/19 17:17 140/60 09/23/19 16:00 97.7 60 20 140/60 (86) 97 09/23/19 16:00 62 09/23/19 12:00 63 09/23/19 12:00 98.9 62 20 122/53 (76) 96 Height (Feet): 5 Height (Inches): 8.00 Weight (Pounds): 228 Objective GENERAL: The patient is awake and responsive, in no acute distress. HEAD AND NECK: Pupils are equally reactive to light. Extraocular movements intact. Neck was supple. Positive JVD. LUNGS: Good air entry. No wheezing or rhonchi. Decreased air in the bases. HEART: S1, S2. Distant heart sounds. No murmur or gallop. Chest wall has a PermCath. No sign of infection. ABDOMEN: Soft, nondistended, and nontender. Positive bowel sounds. EXTREMITIES: +3 edema in bilateral lower extremity. No cyanosis or clubbing. PELVIC: Scrotum has edema and penile edema was noted. Microbiology Date/Time Source Procedure Growth Status 09/22/19 13:45 Catheter Site Catheter Tip Culture - Preliminary Staphylococcus Aureus Resulted Laboratory Tests Test 09/23/19 14:40 09/24/19 06:35 White Blood Count 13.4 K/UL (4.8-10.8) H 14.4 K/UL (4.8-10.8) H Red Blood Count 3.53 M/UL (4.70-6.10) L 3.54 M/UL (4.70-6.10) L Hemoglobin 10.0 G/DL (14.2-18.0) L 10.2 G/DL (14.2-18.0) L Hematocrit 32.3 % (42.0-52.0) L 32.6 % (42.0-52.0) L Mean Corpuscular Volume 92 FL (80-99) 92 FL (80-99) Mean Corpuscular Hemoglobin 28.4 PG (27.0-31.0) 28.9 PG (27.0-31.0) Mean Corpuscular Hemoglobin Concent 31.0 G/DL (32.0-36.0) L 31.4 G/DL (32.0-36.0) L Red Cell Distribution Width 16.9 % (11.6-14.8) H 16.8 % (11.6-14.8) H Platelet Count 112 K/UL (150-450) L 113 K/UL (150-450) L Mean Platelet Volume 5.8 FL (6.5-10.1) L 5.6 FL (6.5-10.1) L Neutrophils (%) (Auto) % (45.0-75.0) % (45.0-75.0) Lymphocytes (%) (Auto) % (20.0-45.0) % (20.0-45.0) Monocytes (%) (Auto) % (1.0-10.0) % (1.0-10.0) Eosinophils (%) (Auto) % (0.0-3.0) % (0.0-3.0) Basophils (%) (Auto) % (0.0-2.0) % (0.0-2.0) Differential Total Cells Counted 100 100 Neutrophils % (Manual) 86 % (45-75) H 83 % (45-75) H Lymphocytes % (Manual) 4 % (20-45) L 9 % (20-45) L Monocytes % (Manual) 7 % (1-10) 5 % (1-10) Eosinophils % (Manual) 2 % (0-3) 2 % (0-3) Basophils % (Manual) 0 % (0-2) 1 % (0-2) Band Neutrophils 1 % (0-8) 0 % (0-8) Platelet Estimate Decreased L Decreased L Platelet Morphology Normal Normal Polychromasia 1+ Hypochromasia 1+ 1+ Anisocytosis 1+ 1+ Sodium Level 136 MMOL/L (136-145) 136 MMOL/L (136-145) Potassium Level 4.7 MMOL/L (3.5-5.1) 5.0 MMOL/L (3.5-5.1) Chloride Level 100 MMOL/L (98-107) 100 MMOL/L (98-107) Carbon Dioxide Level 27 MMOL/L (21-32) 26 MMOL/L (21-32) Anion Gap 9 mmol/L (5-15) 11 mmol/L (5-15) Blood Urea Nitrogen 80 mg/dL (7-18) H 84 mg/dL (7-18) H Creatinine 6.5 MG/DL (0.55-1.30) H 6.9 MG/DL (0.55-1.30) H Estimat Glomerular Filtration Rate 8.7 mL/min (>60) 8.2 mL/min (>60) Glucose Level 155 MG/DL (74-106) H 120 MG/DL (74-106) H Calcium Level 9.9 MG/DL (8.5-10.1) 9.9 MG/DL (8.5-10.1) Random Vancomycin Level 27.1 ug/mL Current Medications Medications (Trade) Dose Ordered Sig/Trav Route PRN Reason Start Time Stop Time Status Last Admin Dose Admin Acetaminophen (Tylenol) 500 mg Q6H PRN ORAL Mild Pain (Pain Scale 1-3) 09/15/19 00:15 10/14/19 22:59 09/21/19 01:25 Acetaminophen (Tylenol) 650 mg Q4H PRN ORAL Mild Pain (Pain Scale 1-3) 09/14/19 23:00 10/14/19 22:59 09/22/19 13:30 Albuterol/ Ipratropium (Albuterol/ Ipratropium) 3 ml Q4H PRN HHN Shortness of Breath 09/23/19 09:30 09/28/19 09:29 Aspirin (ASA) 81 mg DAILY ORAL 09/15/19 09:00 10/15/19 08:59 09/24/19 09:24 Atorvastatin Calcium (Lipitor) 20 mg BEDTIME ORAL 09/15/19 21:00 10/15/19 20:59 09/22/19 21:40 Carvedilol (Coreg) 6.25 mg EVERY 12 HOURS ORAL 09/22/19 21:00 10/22/19 20:59 09/24/19 09:24 Clonidine HCl (Catapres Tab) 0.1 mg EVERY 4 HOURS PRN ORAL For High Blood Pressure 09/15/19 01:00 10/15/19 00:59 Dextrose (Dextrose 50%) 25 ml Q30M PRN IV Hypoglycemia 09/14/19 23:00 10/14/19 22:59 Dextrose (Dextrose 50%) 50 ml Q30M PRN IV Hypoglycemia 09/14/19 23:00 10/14/19 22:59 Diphenhydramine HCl (Benadryl) 25 mg Q6H PRN ORAL Itching/Pruritis 09/14/19 23:00 10/14/19 22:59 09/22/19 03:22 Docusate Sodium (Colace) 100 mg BID ORAL 09/15/19 09:00 10/15/19 08:59 09/24/19 09:24 Epoetin Garrett (Epoetin Garrett(ESRD on dialysis)) 3,000 unit TUE- SUBQ 09/17/19 21:00 10/17/19 20:59 09/21/19 20:49 Epoetin Garrett (Epoetin Garrett(ESRD on dialysis)) 4,000 unit TUE- SUBQ 09/17/19 21:00 10/17/19 20:59 09/21/19 20:49 Famotidine (Pepcid) 20 mg DAILY ORAL 09/15/19 09:00 10/15/19 08:59 09/24/19 09:25 Heparin Sodium (Porcine) (Heparin 5000 units/ml) 5,000 units EVERY 12 HOURS SUBQ 09/15/19 13:45 10/15/19 13:44 Hydralazine HCl (Apresoline) 25 mg BID ORAL 09/15/19 18:00 10/15/19 08:59 09/24/19 09:24 Insulin Aspart (NovoLOG) BEFORE MEALS AND HS SUBQ 09/15/19 06:30 10/15/19 06:29 09/23/19 17:16 Isosorbide Dinitrate (Isordil) 10 mg BID ORAL 09/15/19 18:00 10/15/19 17:59 09/24/19 09:24 Lorazepam (Ativan 2mg/ml 1ml) 0.5 mg Q6H PRN IV For Anxiety 09/22/19 12:45 09/29/19 12:44 09/23/19 22:11 Nitroglycerin (Ntg) 0.4 mg Q5M PRN SL Prn Chest Pain 09/14/19 23:00 10/14/19 22:59 09/15/19 11:03 Ondansetron HCl (Zofran) 4 mg Q6H PRN ORAL Nausea & Vomiting 09/14/19 23:00 10/14/19 22:59 09/19/19 18:02 Pantoprazole (Protonix) 40 mg DAILY ORAL 09/15/19 09:00 10/15/19 08:59 09/24/19 09:25 Polyethylene Glycol (Miralax) 17 gm DAILYPRN PRN ORAL Constipation 09/14/19 23:00 10/14/19 22:59 Prochlorperazine (Compazine) 10 mg Q6H PRN IVP Nausea & Vomiting 09/14/19 23:00 10/14/19 22:59 Triamcinolone (Kenalog) 1 applic TID TOPIC 09/15/19 09:00 10/15/19 08:59 09/24/19 09:25 Vancomycin HCl (Vanco rx to dose) 1 ea DAILY PRN MISC Per rx protocol 09/18/19 19:15 10/18/19 19:14 Vitamin B Complex/ Vit C/Folic Acid (Nephrovite) 1 tab DAILY ORAL 09/15/19 09:00 10/15/19 08:59 09/24/19 09:25 Leila Granado M.D. Sep 24, 2019 11:58
[2019-09-24 12:00] VITALS: BP 131/68
--- NOTE | 2019-09-24 12:00 | NUR ---
NURSE NOTES: Per Dr. Hutson, unable to schedule HD since he does not have access and cannot have access until clearance obtained from ID. Dr. Hutson ordered Kayaxalate. Will administer as ordered. Will continue plan of care.
--- NOTE | 2019-09-24 12:00 | NUR ---
NURSE NOTES: Notified Dr. Granado regarding positive blood culture of gram positive cocci in cluster on [address] Granado ordered antibiotics. Waiting for Dr. Humphrey to response from Dr. Granado regarding JAMES schedule. Will continue plan of care.
[2019-09-24] MEDS ORDERED: Sodium Polystyrene Sulfonate 15gm Powder ORAL SCH (12:05)
--- NOTE | 2019-09-24 12:15 | Nephrology Progress Note ---
Assessment/Plan Problem List: (1) ESRD (end stage renal disease) on dialysis (2) Anemia (3) HTN (hypertension) (4) Diabetes mellitus (5) CHF (congestive heart failure) (6) Bacteremia Plan Discussed with ID and RN Hold HD cont Epogen abxs Subjective Subjective In NAD Objective Objective Last 24 Hour Vital Signs Date Time Temp Pulse Resp B/P (MAP) Pulse Ox O2 Delivery O2 Flow Rate FiO2 09/24/19 09:24 72 156/72 09/24/19 09:24 156/72 09/24/19 09:24 156/72 09/24/19 08:23 72 16 98 Nasal Cannula 2.0 28 09/24/19 08:23 98 Nasal Cannula 2.0 28 09/24/19 08:00 98.3 66 18 156/72 (100) 95 09/24/19 04:00 67 09/24/19 04:00 97.9 72 19 136/69 (91) 97 09/24/19 00:00 60 09/23/19 21:00 Nasal Cannula 2.0 09/23/19 21:00 62 140/60 09/23/19 20:09 62 18 97 Nasal Cannula 2.0 28 09/23/19 20:08 97 Nasal Cannula 2.0 28 09/23/19 20:00 59 09/23/19 17:18 140/60 09/23/19 17:17 140/60 09/23/19 16:00 97.7 60 20 140/60 (86) 97 09/23/19 16:00 62 Intake and Output 09/23/19 09/24/19 19:00 07:00 Intake Total 630 ml 120 ml Balance 630 ml 120 ml Intake Oral 630 ml 120 ml Laboratory Tests 09/23/19 14:40: White Blood Count 13.4H, Red Blood Count 3.53L, Hemoglobin 10.0L, Hematocrit 32.3L, Mean Corpuscular Volume 92, Mean Corpuscular Hemoglobin 28.4, Mean Corpuscular Hemoglobin Concent 31.0L, Red Cell Distribution Width 16.9H, Platelet Count 112L, Mean Platelet Volume 5.8L, Neutrophils (%) (Auto) , Lymphocytes (%) (Auto) , Monocytes (%) (Auto) , Eosinophils (%) (Auto) , Basophils (%) (Auto) , Differential Total Cells Counted 100, Neutrophils % ( Manual) 86H, Lymphocytes % (Manual) 4L, Monocytes % (Manual) 7, Eosinophils % ( Manual) 2, Basophils % (Manual) 0, Band Neutrophils 1, Platelet Estimate DecreasedL, Platelet Morphology Normal, Polychromasia 1+, Hypochromasia 1+, Anisocytosis 1+, Sodium Level 136, Potassium Level 4.7, Chloride Level 100, Carbon Dioxide Level 27, Anion Gap 9, Blood Urea Nitrogen 80H, Creatinine 6.5H, Estimat Glomerular Filtration Rate 8.7, Glucose Level 155H, Calcium Level 9.9, Random Vancomycin Level 27.1 09/24/19 06:35: White Blood Count 14.4H, Red Blood Count 3.54L, Hemoglobin 10.2L, Hematocrit 32.6L, Mean Corpuscular Volume 92, Mean Corpuscular Hemoglobin 28.9, Mean Corpuscular Hemoglobin Concent 31.4L, Red Cell Distribution Width 16.8H, Platelet Count 113L, Mean Platelet Volume 5.6L, Neutrophils (%) (Auto) , Lymphocytes (%) (Auto) , Monocytes (%) (Auto) , Eosinophils (%) (Auto) , Basophils (%) (Auto) , Differential Total Cells Counted 100, Neutrophils % ( Manual) 83H, Lymphocytes % (Manual) 9L, Monocytes % (Manual) 5, Eosinophils % ( Manual) 2, Basophils % (Manual) 1, Band Neutrophils 0, Platelet Estimate DecreasedL, Platelet Morphology Normal, Hypochromasia 1+, Anisocytosis 1+, Sodium Level 136, Potassium Level 5.0, Chloride Level 100, Carbon Dioxide Level 26, Anion Gap 11, Blood Urea Nitrogen 84H, Creatinine 6.9H, Estimat Glomerular Filtration Rate 8.2, Glucose Level 120H, Calcium Level 9.9 Height (Feet): 5 Height (Inches): 8.00 Weight (Pounds): 228 Cardiovascular: normal rate Respiratory/Chest: lungs clear Extremities: trace edema Justin Hutson MD Sep 24, 2019 12:15
--- NOTE | 2019-09-24 12:35 | Pulmonology Progress Note ---
Assessment/Plan Problems: (1) Pleural effusion, right (2) Bacteremia (3) Pulmonary edema (4) CHF (congestive heart failure) (5) Physical debility (6) Anemia (7) ESRD needing dialysis (8) Diabetes mellitus (9) HTN (hypertension) Assessment/Plan Blood cultures are positive for staph aureus on - and Dec respiratory stable watch effusion, no need for thoracentesis incentive spirometry persistent leukocytosis, and rising on Vancomycin IV respiratory treatment titrate fio2 to sat of 92 HD, MWF symptomatic treatment prbc prn check stool for OB still pending Subjective ROS Limited/Unobtainable: No Constitutional: Reports: no symptoms HEENT: Repors: no symptoms Allergies: Coded Allergies: No Known Allergies (Unverified , 07/06/19) Objective Last 24 Hour Vital Signs Date Time Temp Pulse Resp B/P (MAP) Pulse Ox O2 Delivery O2 Flow Rate FiO2 09/24/19 09:24 72 156/72 09/24/19 09:24 156/72 09/24/19 09:24 156/72 09/24/19 08:23 72 16 98 Nasal Cannula 2.0 28 09/24/19 08:23 98 Nasal Cannula 2.0 28 09/24/19 08:00 98.3 66 18 156/72 (100) 95 09/24/19 04:00 67 09/24/19 04:00 97.9 72 19 136/69 (91) 97 09/24/19 00:00 60 09/23/19 21:00 Nasal Cannula 2.0 09/23/19 21:00 62 140/60 09/23/19 20:09 62 18 97 Nasal Cannula 2.0 28 09/23/19 20:08 97 Nasal Cannula 2.0 28 09/23/19 20:00 59 09/23/19 17:18 140/60 09/23/19 17:17 140/60 09/23/19 16:00 97.7 60 20 140/60 (86) 97 09/23/19 16:00 62 Intake and Output 09/23/19 09/24/19 19:00 07:00 Intake Total 630 ml 120 ml Balance 630 ml 120 ml Intake Oral 630 ml 120 ml Objective General Appearance: chronically ill looking, pale HEENT: atraumatic Respiratory/Chest: chest wall non-tender, lungs clear Cardiovascular: normal peripheral pulses, regularly irregular Abdomen: normal bowel sounds, no scars Microbiology Date/Time Source Procedure Growth Status 09/23/19 14:50 Blood Blood Culture - Preliminary Resulted 09/23/19 14:40 Blood Blood Culture - Preliminary Resulted 09/22/19 13:45 Catheter Site Catheter Tip Culture - Preliminary Staphylococcus Aureus Resulted Laboratory Tests 09/23/19 14:40: White Blood Count 13.4H, Red Blood Count 3.53L, Hemoglobin 10.0L, Hematocrit 32.3L, Mean Corpuscular Volume 92, Mean Corpuscular Hemoglobin 28.4, Mean Corpuscular Hemoglobin Concent 31.0L, Red Cell Distribution Width 16.9H, Platelet Count 112L, Mean Platelet Volume 5.8L, Neutrophils (%) (Auto) , Lymphocytes (%) (Auto) , Monocytes (%) (Auto) , Eosinophils (%) (Auto) , Basophils (%) (Auto) , Differential Total Cells Counted 100, Neutrophils % ( Manual) 86H, Lymphocytes % (Manual) 4L, Monocytes % (Manual) 7, Eosinophils % ( Manual) 2, Basophils % (Manual) 0, Band Neutrophils 1, Platelet Estimate DecreasedL, Platelet Morphology Normal, Polychromasia 1+, Hypochromasia 1+, Anisocytosis 1+, Sodium Level 136, Potassium Level 4.7, Chloride Level 100, Carbon Dioxide Level 27, Anion Gap 9, Blood Urea Nitrogen 80H, Creatinine 6.5H, Estimat Glomerular Filtration Rate 8.7, Glucose Level 155H, Calcium Level 9.9, Random Vancomycin Level 27.1 09/24/19 06:35: White Blood Count 14.4H, Red Blood Count 3.54L, Hemoglobin 10.2L, Hematocrit 32.6L, Mean Corpuscular Volume 92, Mean Corpuscular Hemoglobin 28.9, Mean Corpuscular Hemoglobin Concent 31.4L, Red Cell Distribution Width 16.8H, Platelet Count 113L, Mean Platelet Volume 5.6L, Neutrophils (%) (Auto) , Lymphocytes (%) (Auto) , Monocytes (%) (Auto) , Eosinophils (%) (Auto) , Basophils (%) (Auto) , Differential Total Cells Counted 100, Neutrophils % ( Manual) 83H, Lymphocytes % (Manual) 9L, Monocytes % (Manual) 5, Eosinophils % ( Manual) 2, Basophils % (Manual) 1, Band Neutrophils 0, Platelet Estimate DecreasedL, Platelet Morphology Normal, Hypochromasia 1+, Anisocytosis 1+, Sodium Level 136, Potassium Level 5.0, Chloride Level 100, Carbon Dioxide Level 26, Anion Gap 11, Blood Urea Nitrogen 84H, Creatinine 6.9H, Estimat Glomerular Filtration Rate 8.2, Glucose Level 120H, Calcium Level 9.9 Current Medications Medications (Trade) Dose Ordered Sig/Trav Route PRN Reason Start Time Stop Time Status Last Admin Dose Admin Acetaminophen (Tylenol) 500 mg Q6H PRN ORAL Mild Pain (Pain Scale 1-3) 09/15/19 00:15 10/14/19 22:59 09/21/19 01:25 Acetaminophen (Tylenol) 650 mg Q4H PRN ORAL Mild Pain (Pain Scale 1-3) 09/14/19 23:00 10/14/19 22:59 09/22/19 13:30 Albuterol/ Ipratropium (Albuterol/ Ipratropium) 3 ml Q4H PRN HHN Shortness of Breath 09/23/19 09:30 09/28/19 09:29 Aspirin (ASA) 81 mg DAILY ORAL 09/15/19 09:00 10/15/19 08:59 09/24/19 09:24 Atorvastatin Calcium (Lipitor) 20 mg BEDTIME ORAL 09/15/19 21:00 10/15/19 20:59 09/22/19 21:40 Carvedilol (Coreg) 6.25 mg EVERY 12 HOURS ORAL 09/22/19 21:00 10/22/19 20:59 09/24/19 09:24 Clonidine HCl (Catapres Tab) 0.1 mg EVERY 4 HOURS PRN ORAL For High Blood Pressure 09/15/19 01:00 10/15/19 00:59 Dextrose (Dextrose 50%) 25 ml Q30M PRN IV Hypoglycemia 09/14/19 23:00 10/14/19 22:59 Dextrose (Dextrose 50%) 50 ml Q30M PRN IV Hypoglycemia 09/14/19 23:00 10/14/19 22:59 Diphenhydramine HCl (Benadryl) 25 mg Q6H PRN ORAL Itching/Pruritis 09/14/19 23:00 10/14/19 22:59 09/22/19 03:22 Docusate Sodium (Colace) 100 mg BID ORAL 09/15/19 09:00 10/15/19 08:59 09/24/19 09:24 Epoetin Garrett (Epoetin Garrett(ESRD on dialysis)) 3,000 unit SUBQ 09/17/19 21:00 10/17/19 20:59 09/21/19 20:49 Epoetin Garrett (Epoetin Garrett(ESRD on dialysis)) 4,000 unit SUBQ 09/17/19 21:00 10/17/19 20:59 09/21/19 20:49 Famotidine (Pepcid) 20 mg DAILY ORAL 09/15/19 09:00 10/15/19 08:59 09/24/19 09:25 Heparin Sodium (Porcine) (Heparin 5000 units/ml) 5,000 units EVERY 12 HOURS SUBQ 09/15/19 13:45 10/15/19 13:44 Hydralazine HCl (Apresoline) 25 mg BID ORAL 09/15/19 18:00 10/15/19 08:59 09/24/19 09:24 Insulin Aspart (NovoLOG) BEFORE MEALS AND HS SUBQ 09/15/19 06:30 10/15/19 06:29 09/23/19 17:16 Isosorbide Dinitrate (Isordil) 10 mg BID ORAL 09/15/19 18:00 10/15/19 17:59 09/24/19 09:24 Lorazepam (Ativan 2mg/ml 1ml) 0.5 mg Q6H PRN IV For Anxiety 09/22/19 12:45 09/29/19 12:44 09/23/19 22:11 Nitroglycerin (Ntg) 0.4 mg Q5M PRN SL Prn Chest Pain 09/14/19 23:00 10/14/19 22:59 09/15/19 11:03 Ondansetron HCl (Zofran) 4 mg Q6H PRN ORAL Nausea & Vomiting 09/14/19 23:00 10/14/19 22:59 09/19/19 18:02 Pantoprazole (Protonix) 40 mg DAILY ORAL 09/15/19 09:00 10/15/19 08:59 09/24/19 09:25 Polyethylene Glycol (Miralax) 17 gm DAILYPRN PRN ORAL Constipation 09/14/19 23:00 10/14/19 22:59 Prochlorperazine (Compazine) 10 mg Q6H PRN IVP Nausea & Vomiting 09/14/19 23:00 10/14/19 22:59 Sodium Polystyrene Sulfonate (Kayexalate) 30 gm ONCE ORAL 09/24/19 12:05 09/24/19 13:30 Triamcinolone (Kenalog) 1 applic TID TOPIC 09/15/19 09:00 10/15/19 08:59 09/24/19 09:25 Vancomycin HCl (Vanco rx to dose) 1 ea DAILY PRN MISC Per rx protocol 09/18/19 19:15 10/18/19 19:14 Vitamin B Complex/ Vit C/Folic Acid (Nephrovite) 1 tab DAILY ORAL 09/15/19 09:00 10/15/19 08:59 09/24/19 09:25 Christy Mercer MD Sep 24, 2019 12:35
--- NOTE | 2019-09-24 12:51 | Diagnostic Imaging Report ---
Indication: Dyspnea Comparison: 09/18/2019 A single view chest radiograph was obtained. Findings: Pulmonary vascular congestion demonstrated. Suspect bilateral pleural effusions especially on the right. Heart is enlarged. Right permacath was removed. IMPRESSION: Slightly worsening pulmonary edema
--- NOTE | 2019-09-24 13:07 | GI Initial Consult Note ---
History of Present Illness General Date patient seen: Sep 24, 2019 Time patient seen: 13:00 Reason for Hospitalization: Chest Pain Referring physician: CONY CONLEY Reason for Consultation: ELEVATED LFTs Present Illness HPI 63-year-old male presents ED for evaluation. coming from SNF. Complaining of chest pain. On and off since yesterday. Was given nitro by EMS and states chest pain is resolved. States that he was having chest pain earlier today while on dialysis and had to stop his dialysis session. Gets dialysis Tuesday. Denies shortness of breath. Denies fevers or chills. Denies cough. No other aggravating relieving factors. Denies any other associated symptoms GI consulted for reported elevated LFTs and possible silent aspiration. ROS limited, patient seen awake alert no apparent distress with no active signs or symptoms of any nausea vomiting. Discussion with RN and noted that the patient unable to swallow p.o. displays a symptoms of aspiration whenever taking p.o. medication. At the time of evaluation, the patient's AST is 122, ALT 151, total bilirubin 2.6, alkaline phosphatase 578. Hepatitis panel is negative. Abdominal ultrasound shows portal hypertension with suspected ascites, splenomegaly and abnormal Doppler evaluation of the main portal vein. The imaging study also notes a thickened gallbladder wall which was nonspecific. There is no biliary ductal dilation identified. Common bile duct was 6.6 mm. Unknown history of endoscopic or colonoscopy. Home Meds Active Scripts Hydralazine HCl (Hydralazine HCl) 10 Mg Tablet, 10 MG ORAL QID for 30 Days, TAB Prov:Christy Mercer MD 07/24/19 Escitalopram Oxalate* (LEXAPRO*) 10 Mg Tablet, 10 MG ORAL DAILY for 30 Days, TAB Prov:Christy Mercer MD 07/24/19 Reported Medications Terbinafine Hcl (TERBINAFINE HCL) 30 Gm Cream..g., 1 APPLIC TP BID, GM 09/17/19 Lidocaine (Lidocaine) 35.44 Gm Oint...g., 1 APPLIC TP TID, GM 09/17/19 Acetaminophen* (ACETAMINOPHEN EXTRA STRENGTH*) 500 Mg Tablet, 1000 MG ORAL Q6H PRN for Pain Scale (6-10), TAB 0 Refills 09/17/19 Acetaminophen* (ACETAMINOPHEN 325MG TABLET*) 325 Mg Tablet, 650 MG ORAL Q6H PRN for PAIN/TEMP, TAB 09/17/19 Triamcinolone Acetonide (Triamcinolone Acetonide 0.1% Oint*) 15 Gm Oint...g., 1 APPLIC TP TID, GM 09/17/19 Epoetin Garrett (Epogen) 3,000 Unit/1 Ml Vial, 3000 UNIT SUBQ 3XW M,W,F, VIAL 09/14/19 Diphenhydramine Hcl* (DIPHENHYDRAMINE HCL*) 25 Mg Capsule, 25 MG ORAL Q6H PRN for Itching, #30 CAP 0 Refills 09/14/19 Clonidine Hcl* (CATAPRES*) 0.1 Mg Tablet, 0.1 MG ORAL EVERY 4 HOURS, TAB 09/14/19 Ondansetron (Zofran) 4 Mg Tablet, 4 MG ORAL Q6H PRN for Nausea & Vomiting, TAB 09/14/19 Vitamin B Cmplx/Vit C/Folic AC (Nephro-Eduar Tablet) 0.8 Mg Tablet, 1 TAB ORAL DAILY, #30 TAB 0 Refills 09/14/19 Famotidine* (Pepcid 20mg tablet*) 20 Mg Tablet, 20 MG ORAL DAILY for GERD, #30 TAB 0 Refills 09/14/19 Carvedilol (Coreg) 12.5 Mg Tablet, 12.5 MG ORAL EVERY 12 HOURS for HTN, TAB 09/14/19 Polyethylene Glycol 3350* (POLYETHYLENE GLYCOL 3350*) 17 Gm Powd.pack, 17 GM ORAL BEDTIME PRN for Constipation, PACKET 09/14/19 Acetaminophen* (ACETAMINOPHEN EXTRA STRENGTH*) 500 Mg Tablet, 500 MG ORAL Q6H PRN for For Pain Level <=5, TAB 09/14/19 Insulin Aspart (Novolog Flexpen) 100 Unit/1 Ml Insuln.pen, UNIT SUBQ .SLIDING SCALE 08/22/19 Docusate Sodium* (DOCUSATE SODIUM*) 100 Mg Capsule, 100 MG ORAL TID ON T,TH,S,S , CAP 07/19/19 Aspirin* (ASPIRIN*) 81 Mg Tab.chew, 81 MG ORAL DAILY, TAB 07/19/19 Med list reviewed/reconciled: Yes Allergies: Coded Allergies: No Known Allergies (Unverified , 07/06/19) Patient History Limited by: medical condition History Provided By: Medical Record PMH Narrative Past Medical History: HTN, GERD, renal disease, dialysis Pertinent Family History: none Social History: Denies: smoking, alcohol use, drug use Immunizations: UTD Reviewed Nursing Documentation: PMH: Agreed; PSxH: Agreed Nursing Documentation-PMH Past Medical History: No History, Except For Hx Cardiac Problems: Yes Hx Hypertension: Yes Hx Diabetes: Yes Hx Cancer: No Hx Gastrointestinal Problems: Yes - GERD Hx Dialysis: Yes - (M, W, F) Hx Neurological Problems: No Hx Cerebrovascular Accident: No Hx Transient Ischemic Attacks: No Hx Dementia: No Hx Alzheimer's Disease: No Hx Parkinson's Disease: No Hx Meningitis: No Hx Encephalitis: No Hx Seizures: No Hx Epilepsy: No Hx Multiple Sclerosis: No Hx Cerebral Palsy: No Hx Amyotrophic Lat Sclerosis: No Hx Guillian-[place] Syndrome: No Hx Paralysis: No Hx Peripheral Neuropathy: No Hx Spinal Cord Injury: No Hx Head Trauma: No Hx Traumatic Brain Injury: No Hx Memory Loss: No Hx Concentration Difficulty: No Hx Speech Problem: No Hx Tremors: No Hx Vertigo: No Hx Dizziness: No Hx Syncope: No Hx Headaches: No Hx Aphasia: No Hx Dysphasia: No Hx Numbness: No Hx Weakness: No Hx Fatigue: No Hx Neurologic Surgery: No Hx Brain Shunt: No Social History: Denies: smoking, alcohol use, drug use, other Review of Systems All Other Systems: limited Physical Exam Vital Signs Date Time Temp Pulse Resp B/P (MAP) Pulse Ox O2 Delivery O2 Flow Rate FiO2 09/20/19 08:00 58 09/20/19 08:05 97.5 20 116/90 (99) 97 09/20/19 09:00 Nasal Cannula 2.0 09/21/19 23:41 28 Sp02 EP Interpretation: reviewed, normal Labs Laboratory Tests Test 09/23/19 14:40 09/24/19 06:35 White Blood Count 13.4 K/UL (4.8-10.8) H 14.4 K/UL (4.8-10.8) H Red Blood Count 3.53 M/UL (4.70-6.10) L 3.54 M/UL (4.70-6.10) L Hemoglobin 10.0 G/DL (14.2-18.0) L 10.2 G/DL (14.2-18.0) L Hematocrit 32.3 % (42.0-52.0) L 32.6 % (42.0-52.0) L Mean Corpuscular Volume 92 FL (80-99) 92 FL (80-99) Mean Corpuscular Hemoglobin 28.4 PG (27.0-31.0) 28.9 PG (27.0-31.0) Mean Corpuscular Hemoglobin Concent 31.0 G/DL (32.0-36.0) L 31.4 G/DL (32.0-36.0) L Red Cell Distribution Width 16.9 % (11.6-14.8) H 16.8 % (11.6-14.8) H Platelet Count 112 K/UL (150-450) L 113 K/UL (150-450) L Mean Platelet Volume 5.8 FL (6.5-10.1) L 5.6 FL (6.5-10.1) L Neutrophils (%) (Auto) % (45.0-75.0) % (45.0-75.0) Lymphocytes (%) (Auto) % (20.0-45.0) % (20.0-45.0) Monocytes (%) (Auto) % (1.0-10.0) % (1.0-10.0) Eosinophils (%) (Auto) % (0.0-3.0) % (0.0-3.0) Basophils (%) (Auto) % (0.0-2.0) % (0.0-2.0) Differential Total Cells Counted 100 100 Neutrophils % (Manual) 86 % (45-75) H 83 % (45-75) H Lymphocytes % (Manual) 4 % (20-45) L 9 % (20-45) L Monocytes % (Manual) 7 % (1-10) 5 % (1-10) Eosinophils % (Manual) 2 % (0-3) 2 % (0-3) Basophils % (Manual) 0 % (0-2) 1 % (0-2) Band Neutrophils 1 % (0-8) 0 % (0-8) Platelet Estimate Decreased L Decreased L Platelet Morphology Normal Normal Polychromasia 1+ Hypochromasia 1+ 1+ Anisocytosis 1+ 1+ Sodium Level 136 MMOL/L (136-145) 136 MMOL/L (136-145) Potassium Level 4.7 MMOL/L (3.5-5.1) 5.0 MMOL/L (3.5-5.1) Chloride Level 100 MMOL/L (98-107) 100 MMOL/L (98-107) Carbon Dioxide Level 27 MMOL/L (21-32) 26 MMOL/L (21-32) Anion Gap 9 mmol/L (5-15) 11 mmol/L (5-15) Blood Urea Nitrogen 80 mg/dL (7-18) H 84 mg/dL (7-18) H Creatinine 6.5 MG/DL (0.55-1.30) H 6.9 MG/DL (0.55-1.30) H Estimat Glomerular Filtration Rate 8.7 mL/min (>60) 8.2 mL/min (>60) Glucose Level 155 MG/DL (74-106) H 120 MG/DL (74-106) H Calcium Level 9.9 MG/DL (8.5-10.1) 9.9 MG/DL (8.5-10.1) Random Vancomycin Level 27.1 ug/mL General Appearance: well appearing, no apparent distress, alert Head: normocephalic EENT: PERRL/EOMI, normal ENT inspection Neck: supple Respiratory: normal breath sounds, no respiratory distress Cardiovascular: normal rate Gastrointestinal: normal inspection, non tender, soft, normal bowel sounds, non -distended Rectal: deferred Genitourinary: deferred Musculoskeletal: normal inspection, back normal Neurologic: alert, responsive, normal inspection Skin: normal inspection, normal color, no rash, warm/dry, palpation normal, well hydrated Lymphatic: normal inspection, no adenopathy Current Medications Current Medications Medications (Trade) Dose Ordered Sig/Trav Route PRN Reason Start Time Stop Time Status Last Admin Dose Admin Acetaminophen (Tylenol) 500 mg Q6H PRN ORAL Mild Pain (Pain Scale 1-3) 09/15/19 00:15 10/14/19 22:59 09/21/19 01:25 Acetaminophen (Tylenol) 650 mg Q4H PRN ORAL Mild Pain (Pain Scale 1-3) 09/14/19 23:00 10/14/19 22:59 09/22/19 13:30 Albuterol/ Ipratropium (Albuterol/ Ipratropium) 3 ml Q4H PRN HHN Shortness of Breath 09/23/19 09:30 09/28/19 09:29 Aspirin (ASA) 81 mg DAILY ORAL 09/15/19 09:00 10/15/19 08:59 09/24/19 09:24 Atorvastatin Calcium (Lipitor) 20 mg BEDTIME ORAL 09/15/19 21:00 10/15/19 20:59 09/22/19 21:40 Carvedilol (Coreg) 6.25 mg EVERY 12 HOURS ORAL 09/22/19 21:00 10/22/19 20:59 09/24/19 09:24 Clonidine HCl (Catapres Tab) 0.1 mg EVERY 4 HOURS PRN ORAL For High Blood Pressure 09/15/19 01:00 10/15/19 00:59 Dextrose (Dextrose 50%) 25 ml Q30M PRN IV Hypoglycemia 09/14/19 23:00 10/14/19 22:59 Dextrose (Dextrose 50%) 50 ml Q30M PRN IV Hypoglycemia 09/14/19 23:00 10/14/19 22:59 Diphenhydramine HCl (Benadryl) 25 mg Q6H PRN ORAL Itching/Pruritis 09/14/19 23:00 10/14/19 22:59 09/22/19 03:22 Docusate Sodium (Colace) 100 mg BID ORAL 09/15/19 09:00 10/15/19 08:59 09/24/19 09:24 Epoetin Garrett (Epoetin Garrett(ESRD on dialysis)) 3,000 unit SUBQ 09/17/19 21:00 10/17/19 20:59 09/21/19 20:49 Epoetin Garrett (Epoetin Garrett(ESRD on dialysis)) 4,000 unit TUE-TUE-TUE SUBQ 09/17/19 21:00 10/17/19 20:59 09/21/19 20:49 Famotidine (Pepcid) 20 mg DAILY ORAL 09/15/19 09:00 10/15/19 08:59 09/24/19 09:25 Heparin Sodium (Porcine) (Heparin 5000 units/ml) 5,000 units EVERY 12 HOURS SUBQ 09/15/19 13:45 10/15/19 13:44 Hydralazine HCl (Apresoline) 25 mg BID ORAL 09/15/19 18:00 10/15/19 08:59 09/24/19 09:24 Insulin Aspart (NovoLOG) BEFORE MEALS AND HS SUBQ 09/15/19 06:30 10/15/19 06:29 09/23/19 17:16 Isosorbide Dinitrate (Isordil) 10 mg BID ORAL 09/15/19 18:00 10/15/19 17:59 09/24/19 09:24 Lorazepam (Ativan 2mg/ml 1ml) 0.5 mg Q6H PRN IV For Anxiety 09/22/19 12:45 09/29/19 12:44 09/23/19 22:11 Nitroglycerin (Ntg) 0.4 mg Q5M PRN SL Prn Chest Pain 09/14/19 23:00 10/14/19 22:59 09/15/19 11:03 Ondansetron HCl (Zofran) 4 mg Q6H PRN ORAL Nausea & Vomiting 09/14/19 23:00 10/14/19 22:59 09/19/19 18:02 Pantoprazole (Protonix) 40 mg DAILY ORAL 09/15/19 09:00 10/15/19 08:59 09/24/19 09:25 Polyethylene Glycol (Miralax) 17 gm DAILYPRN PRN ORAL Constipation 09/14/19 23:00 10/14/19 22:59 Prochlorperazine (Compazine) 10 mg Q6H PRN IVP Nausea & Vomiting 09/14/19 23:00 10/14/19 22:59 Sodium Polystyrene Sulfonate (Kayexalate) 30 gm ONCE ORAL 09/24/19 12:05 09/24/19 13:30 09/24/19 12:58 Triamcinolone (Kenalog) 1 applic TID TOPIC 09/15/19 09:00 10/15/19 08:59 09/24/19 12:58 Vancomycin HCl (Vanco rx to dose) 1 ea DAILY PRN MISC Per rx protocol 09/18/19 19:15 10/18/19 19:14 Vitamin B Complex/ Vit C/Folic Acid (Nephrovite) 1 tab DAILY ORAL 09/15/19 09:00 10/15/19 08:59 09/24/19 09:25 GI: Plan Problems: (1) Diabetes mellitus (2) Physical debility (3) Anemia (4) Abnormal LFTs Plan Abdominal ultrasound reviewed with no biliary obstruction noted, common bile duct of 6.6 mm. The presence of portal hypertension with mild ascites. Hepatitis panel negative No plans for any GI procedures at this time BP management given portal hypertension Obtain swallow evaluation given reported signs and symptoms of aspiration We will consider PEG if necessary Trend LFTs We will follow along on a daily basis with any additional recommendations Discussed with Dr. Nick. Thank you for this patient referral, we will follow. The patient was seen and examined at bedside and all new and available data was reviewed in the patients chart. I agree with the above findings, impression and plan. (Patient seen earlier today. Signature stamp does not reflect patient encounter time.). - MD Naida [facility]ardNorthern [facility] Sep 24, 2019 13:07
--- NOTE | 2019-09-24 15:44 | NUR ---
RD ASSESSMENT & RECOMMENDATIONS SEE CARE ACTIVITY FOR COMPLETE ASSESSMENT DAILY ESTIMATED NEEDS: Needs based on ESRD on HD, 74kg abw 25-30 kcals/kg 5891-2516 total kcals 1.2-1.8 g protein/kg 89-133 g total protein Fluid per MD, on HD NUTRITION DIAGNOSIS: * Increased kcal/protein needs R/T ESRD as evidenced by pt on HD, HD currently held as pt without HD access. CURRENT DIET: Renal, CCHO MED PO DIET RECOMMENDATIONS: Renal + CCHO med/ texture per [employer]ICATION [employer]S [employer]CTOR ADDITIONAL RECOMMENDATIONS: 1) [employer] EVALUATION FOR APPROPRIATE TEXTURE -> pt appears more lethargic, refusing and difficulty tolerating meals on 09/24 2) HD held at this time, without HD access -> monitor renal fxn and lytes -> check updated phos and mag levels 3) Calibrated bedscale wt 4) Nepro BID w/ variable PO intake
[2019-09-24 16:00] VITALS: BP 148/63
--- NOTE | 2019-09-24 17:00 | NUR ---
NURSE NOTES: The patient is stable without acute distress or shortness of breath. Will continue plan of care.
--- NOTE | 2019-09-24 17:58 | Surgery Progress Note ---
Surgery Progress Note Subjective Procedure Performed Removal of right tunneled permacath Additional Comments doing okay leukocytosis micro noted cath tip and blood cultures staph a Objective Last 24 Hour Vital Signs Date Time Temp Pulse Resp B/P (MAP) Pulse Ox O2 Delivery O2 Flow Rate FiO2 09/24/19 16:00 98.3 64 18 148/63 (91) 97 09/24/19 16:00 66 09/24/19 12:00 60 09/24/19 12:00 97.1 66 18 131/68 (89) 97 09/24/19 09:24 72 156/72 09/24/19 09:24 156/72 09/24/19 09:24 156/72 09/24/19 09:00 Nasal Cannula 2.0 09/24/19 08:23 72 16 98 Nasal Cannula 2.0 28 09/24/19 08:23 98 Nasal Cannula 2.0 28 09/24/19 08:00 98.3 66 18 156/72 (100) 95 09/24/19 08:00 64 09/24/19 04:00 67 09/24/19 04:00 97.9 72 19 136/69 (91) 97 09/24/19 00:00 60 09/23/19 21:00 Nasal Cannula 2.0 09/23/19 21:00 62 140/60 09/23/19 20:09 62 18 97 Nasal Cannula 2.0 28 09/23/19 20:08 97 Nasal Cannula 2.0 28 09/23/19 20:00 59 I&O Intake and Output 09/23/19 09/24/19 19:00 07:00 Intake Total 630 ml 120 ml Balance 630 ml 120 ml Intake Oral 630 ml 120 ml Dressing: dry, other Wound: other Drains: other Cardiovascular: RSR Respiratory: decreased breath sounds Abdomen: soft, present bowel sounds Extremities: no cyanosis, other Laboratory Tests Test 09/24/19 06:35 White Blood Count 14.4 K/UL (4.8-10.8) H Red Blood Count 3.54 M/UL (4.70-6.10) L Hemoglobin 10.2 G/DL (14.2-18.0) L Hematocrit 32.6 % (42.0-52.0) L Mean Corpuscular Volume 92 FL (80-99) Mean Corpuscular Hemoglobin 28.9 PG (27.0-31.0) Mean Corpuscular Hemoglobin Concent 31.4 G/DL (32.0-36.0) L Red Cell Distribution Width 16.8 % (11.6-14.8) H Platelet Count 113 K/UL (150-450) L Mean Platelet Volume 5.6 FL (6.5-10.1) L Neutrophils (%) (Auto) % (45.0-75.0) Lymphocytes (%) (Auto) % (20.0-45.0) Monocytes (%) (Auto) % (1.0-10.0) Eosinophils (%) (Auto) % (0.0-3.0) Basophils (%) (Auto) % (0.0-2.0) Differential Total Cells Counted 100 Neutrophils % (Manual) 83 % (45-75) H Lymphocytes % (Manual) 9 % (20-45) L Monocytes % (Manual) 5 % (1-10) Eosinophils % (Manual) 2 % (0-3) Basophils % (Manual) 1 % (0-2) Band Neutrophils 0 % (0-8) Platelet Estimate Decreased L Platelet Morphology Normal Hypochromasia 1+ Anisocytosis 1+ Sodium Level 136 MMOL/L (136-145) Potassium Level 5.0 MMOL/L (3.5-5.1) Chloride Level 100 MMOL/L (98-107) Carbon Dioxide Level 26 MMOL/L (21-32) Anion Gap 11 mmol/L (5-15) Blood Urea Nitrogen 84 mg/dL (7-18) H Creatinine 6.9 MG/DL (0.55-1.30) H Estimat Glomerular Filtration Rate 8.2 mL/min (>60) Glucose Level 120 MG/DL (74-106) H Calcium Level 9.9 MG/DL (8.5-10.1) Plan Problems: (1) Bacteremia Assessment & Plan: This is a 63-year-old male with multi-medical comorbidities end-stage renal disease on dialysis currently through right tunneled catheter who now has bacteremia MRSA staph aureus and worsening leukocytosis. Was scheduled to have catheter removed and unfortunately is not been done so far and I was called to assist with care and management. Patient seen, patient evaluated, chart reviewed. Given these above findings catheter should be removed as soon as possible if not prior. Furthermore abnormal LFTs with unknown etiology needs further work-up. Pending coags prior to removal of catheter to ensure not coagulopathic and safe for removal -coags noted. line removed 09/22. tip sent for cx Please see procedure note once removed cath tip and blood cx staph a likely source cont with abx now that line removed plan for another HD line Ultrasound abdomen Trend LFTs IV antibiotics as per infectious disease Trend labs Thank you will follow with recommendations (2) ESRD needing dialysis (3) Noncompliance with renal dialysis Assessment & Plan: Pt noted to have dry necrotic tip of R index finger. No erythema or swelling of digit noted. Dark discoloration noted to sacrum . Maroon discoloration without induration or fluctuance noted to R buttocks(L) 3.5cm x (W).5cm.Pt denied tenderness when palpated. Maroon discoloration without induration or fluctuance noted to R ischium.non- tender when palpated.(L)0.8cm x (W)2cm. Maroon discoloration without induration noted to L ischium.(L)3cm x (W)3.5cm.Non -tender when palpated. At base of scrotum pt noted to have scattered purpuric areas in circular pattern at base of scrotum , with one large purpuric area in center measuring(L) 3.5cm x (W)1cm. Per staff pt presented on admission with enlarged scrotum which has since resolved. R and L heels are dry firm and blanchable. Tx.Plan: Apply Cavilon Skin Barrier to base of Scrotum. Cover with Optifoam drsg. Change every 3 days and prn. Apply Moisture Barrier Paste to Sacrum. Cover with Optifoam drsg. Change every 3 days and prn. Apply Moisture Barrier Paste to R and L ischium. Cover each site with Optifoam drsg. Change every 3 days and prn. Swab R index finger with Betadine Daily. Leave open to Air. Apply Cavilon Skin Barrier to Both Heels. Cover each heel with Optifoam drsg. Change every 7 days and prn. Reposition at least every 2hours or as tolerated. Off-load heels with Pillow. APM/ROSI Mattress overlay. (4) Abnormal LFTs Assessment & Plan: The liver is unremarkable. The main portal vein shows abnormal pulsatile waveform with flow both antegrade and retrograde. There is mild ascites. There is a moderate right pleural effusion. No biliary ductal dilatation is identified. There is thickening of the wall the gallbladder. No gallstones are identified. CBD is 6.6 mm. The spleen is enlarged measuring between 13 and 14 cm. Kidneys are echogenic. There is no hydronephrosis appreciated. The left kidney is not well seen. Pancreas is also not well seen. IMPRESSION: Portal hypertension suspected with ascites, splenomegaly and abnormal Doppler evaluation of the main portal vein. Thickened gallbladder wall nonspecific. Mild ascites Splenomegaly Right pleural effusion para graft medical renal disease suspected. Left kidney not seen well. Ciro Hurtado Sep 24, 2019 17:58
--- NOTE | 2019-09-24 18:44 | Internal Med Progress Note ---
Subjective Date of Service: Sep 24, 2019 Physician Name Crisostomo,Kuldip Attending Physician Geovany Roblero MD Current Medications Medications (Trade) Dose Ordered Sig/Trav Route PRN Reason Start Time Stop Time Status Last Admin Dose Admin Acetaminophen (Tylenol) 500 mg Q6H PRN ORAL Mild Pain (Pain Scale 1-3) 09/15/19 00:15 10/14/19 22:59 09/21/19 01:25 Acetaminophen (Tylenol) 650 mg Q4H PRN ORAL Mild Pain (Pain Scale 1-3) 09/14/19 23:00 10/14/19 22:59 09/22/19 13:30 Albuterol/ Ipratropium (Albuterol/ Ipratropium) 3 ml Q4H PRN HHN Shortness of Breath 09/23/19 09:30 09/28/19 09:29 Aspirin (ASA) 81 mg DAILY ORAL 09/15/19 09:00 10/15/19 08:59 09/24/19 09:24 Atorvastatin Calcium (Lipitor) 20 mg BEDTIME ORAL 09/15/19 21:00 10/15/19 20:59 09/22/19 21:40 Carvedilol (Coreg) 6.25 mg EVERY 12 HOURS ORAL 09/22/19 21:00 10/22/19 20:59 09/24/19 09:24 Clonidine HCl (Catapres Tab) 0.1 mg EVERY 4 HOURS PRN ORAL For High Blood Pressure 09/15/19 01:00 10/15/19 00:59 Dextrose (Dextrose 50%) 25 ml Q30M PRN IV Hypoglycemia 09/14/19 23:00 10/14/19 22:59 Dextrose (Dextrose 50%) 50 ml Q30M PRN IV Hypoglycemia 09/14/19 23:00 10/14/19 22:59 Diphenhydramine HCl (Benadryl) 25 mg Q6H PRN ORAL Itching/Pruritis 09/14/19 23:00 10/14/19 22:59 09/22/19 03:22 Docusate Sodium (Colace) 100 mg BID ORAL 09/15/19 09:00 10/15/19 08:59 09/24/19 18:26 Epoetin Garrett (Epoetin Garrett(ESRD on dialysis)) 3,000 unit TUE-TUE-TUE SUBQ 09/17/19 21:00 10/17/19 20:59 09/21/19 20:49 Epoetin Garrett (Epoetin Garrett(ESRD on dialysis)) 4,000 unit SUBQ 09/17/19 21:00 10/17/19 20:59 09/21/19 20:49 Famotidine (Pepcid) 20 mg DAILY ORAL 09/15/19 09:00 10/15/19 08:59 09/24/19 09:25 Heparin Sodium (Porcine) (Heparin 5000 units/ml) 5,000 units EVERY 12 HOURS SUBQ 09/15/19 13:45 10/15/19 13:44 Hydralazine HCl (Apresoline) 25 mg BID ORAL 09/15/19 18:00 10/15/19 08:59 09/24/19 18:27 Insulin Aspart (NovoLOG) BEFORE MEALS AND HS SUBQ 09/15/19 06:30 10/15/19 06:29 09/23/19 17:16 Isosorbide Dinitrate (Isordil) 10 mg BID ORAL 09/15/19 18:00 10/15/19 17:59 09/24/19 18:27 Lorazepam (Ativan 2mg/ml 1ml) 0.5 mg Q6H PRN IV For Anxiety 09/22/19 12:45 09/29/19 12:44 09/23/19 22:11 Nitroglycerin (Ntg) 0.4 mg Q5M PRN SL Prn Chest Pain 09/14/19 23:00 10/14/19 22:59 09/15/19 11:03 Ondansetron HCl (Zofran) 4 mg Q6H PRN ORAL Nausea & Vomiting 09/14/19 23:00 10/14/19 22:59 09/19/19 18:02 Pantoprazole (Protonix) 40 mg DAILY ORAL 09/15/19 09:00 10/15/19 08:59 09/24/19 09:25 Polyethylene Glycol (Miralax) 17 gm DAILYPRN PRN ORAL Constipation 09/14/19 23:00 10/14/19 22:59 Prochlorperazine (Compazine) 10 mg Q6H PRN IVP Nausea & Vomiting 09/14/19 23:00 10/14/19 22:59 Triamcinolone (Kenalog) 1 applic TID TOPIC 09/15/19 09:00 10/15/19 08:59 09/24/19 18:27 Vancomycin HCl (Vanco rx to dose) 1 ea DAILY PRN MISC Per rx protocol 09/18/19 19:15 10/18/19 19:14 Vitamin B Complex/ Vit C/Folic Acid (Nephrovite) 1 tab DAILY ORAL 09/15/19 09:00 10/15/19 08:59 09/24/19 09:25 Allergies: Coded Allergies: No Known Allergies (Unverified , 07/06/19) ROS Limited/Unobtainable: No Constitutional: Reports: no symptoms HEENT: Reports: no symptoms Cardiovascular: Reports: no symptoms Respiratory: Reports: no symptoms Gastrointestinal/Abdominal: Reports: no symptoms Genitourinary: Reports: no symptoms Neurologic/Psychiatric: Reports: no symptoms Subjective 63 YO M admitted with chest pain. Now MRSA sepsis. S/P removal of hemodialysis cath 09/22/19. Cover for Int Med-dr Roblero Objective Last Vital Signs Date Time Temp Pulse Resp B/P (MAP) Pulse Ox O2 Delivery O2 Flow Rate FiO2 09/24/19 18:27 148/63 09/24/19 16:00 98.3 64 18 97 09/24/19 09:00 Nasal Cannula 2.0 09/24/19 08:23 28 Laboratory Tests Test 09/24/19 06:35 White Blood Count 14.4 K/UL (4.8-10.8) H Red Blood Count 3.54 M/UL (4.70-6.10) L Hemoglobin 10.2 G/DL (14.2-18.0) L Hematocrit 32.6 % (42.0-52.0) L Mean Corpuscular Volume 92 FL (80-99) Mean Corpuscular Hemoglobin 28.9 PG (27.0-31.0) Mean Corpuscular Hemoglobin Concent 31.4 G/DL (32.0-36.0) L Red Cell Distribution Width 16.8 % (11.6-14.8) H Platelet Count 113 K/UL (150-450) L Mean Platelet Volume 5.6 FL (6.5-10.1) L Neutrophils (%) (Auto) % (45.0-75.0) Lymphocytes (%) (Auto) % (20.0-45.0) Monocytes (%) (Auto) % (1.0-10.0) Eosinophils (%) (Auto) % (0.0-3.0) Basophils (%) (Auto) % (0.0-2.0) Differential Total Cells Counted 100 Neutrophils % (Manual) 83 % (45-75) H Lymphocytes % (Manual) 9 % (20-45) L Monocytes % (Manual) 5 % (1-10) Eosinophils % (Manual) 2 % (0-3) Basophils % (Manual) 1 % (0-2) Band Neutrophils 0 % (0-8) Platelet Estimate Decreased L Platelet Morphology Normal Hypochromasia 1+ Anisocytosis 1+ Sodium Level 136 MMOL/L (136-145) Potassium Level 5.0 MMOL/L (3.5-5.1) Chloride Level 100 MMOL/L (98-107) Carbon Dioxide Level 26 MMOL/L (21-32) Anion Gap 11 mmol/L (5-15) Blood Urea Nitrogen 84 mg/dL (7-18) H Creatinine 6.9 MG/DL (0.55-1.30) H Estimat Glomerular Filtration Rate 8.2 mL/min (>60) Glucose Level 120 MG/DL (74-106) H Calcium Level 9.9 MG/DL (8.5-10.1) Microbiology Date/Time Source Procedure Growth Status 09/23/19 14:50 Blood Blood Culture - Preliminary Resulted 09/23/19 14:40 Blood Blood Culture - Preliminary Resulted 09/22/19 13:45 Catheter Site Catheter Tip Culture - Preliminary Staphylococcus Aureus Resulted Intake and Output 09/23/19 09/24/19 19:00 07:00 Intake Total 630 ml 120 ml Balance 630 ml 120 ml Intake Oral 630 ml 120 ml Objective Objective GENERAL: The patient is awake and responsive, in no acute distress. HEAD AND NECK: Pupils are equally reactive to light. Extraocular movements intact. Neck was supple. Positive JVD. LUNGS: Good air entry. No wheezing or rhonchi. Decreased air in the bases. HEART: S1, S2. Distant heart sounds. No murmur or gallop. Chest wall has a PermCath. No sign of infection. ABDOMEN: Soft, nondistended, and nontender. Positive bowel sounds. EXTREMITIES: +3 edema in bilateral lower extremity. No cyanosis or clubbing. PELVIC: Scrotum has edema and penile edema was noted. NEUROLOGIC: Cranial nerves II through XII grossly, unsteady gait. Assessment/Plan Assessment/Plan Assessment/Plan Assessment/Plan ASSESSMENT: 1. Chest pain with mild elevated Troponin, possible acute coronary syndrome. 2. Congestive heart failure with reduced ejection fraction. 3. End-stage renal disease, on hemodialysis, Tuesday, Tuesday, and Tuesday. 4. Diabetes type 2 with diabetic gastroparesis as well as diabetic neuropathy and diabetic nephropathy. 5. Gastroesophageal reflux disease. 6. Hypertension. 7. Mobitz type 1 first-degree AV block. 8. Anasarca. 9. Pedal edema. 10. Severe cardiomyopathy. LVEF=15-20%; repeat=45% 11. Systemic hypertension. 12. Dialysis noncompliance. 13. Mitral as well as tricuspid regurgitation. 14. Severe anemia 15. Sepsis=MRSA PLAN: On telemetry. Dr. Garcia from Cardiology Electrophysiology consultation; Dr. Mercer, Pulmonary Critical Care; Dr. Justin Hutson from Nephrology. Hemodialysis 09/21/19 Code status at per POLST is DNR. DVT prophylaxis, heparin subcutaneous. Accu-Chek, sliding scale. S/P Transfusion 2 units PRBC on 09/20/19 S/P removal of hemodialysis cath 09/22/19-await culture results Hemodialysis on hold pending placement of new hemodialysis cath Kuldip Crisostomo MD Sep 24, 2019 18:44
--- NOTE | 2019-09-24 19:30 | NUR ---
HAND-OFF: Report given to ANTONY Damon. The patient is resting on the bed without acute distress or shortness of breath. The patient's bed in the lowest position, call light in reach, and fall and aspiration precaution reinforced. IV site intact and patent. Oxygen therapy per order. Endorsed plan of care.
--- NOTE | 2019-09-24 19:50 | NUR ---
NURSE NOTES: Received patient from ANTONY Piedra. Patient alert and talkative in bed. No signs of shortness of breath, pain, or distress. Patient confused, unable to make needs known. IV site checked, intact and patent, no signs of redness, bleeding, or infiltration. Bed alarm on, bed in lowest position, brakes on, side rails up x3, and call light within reach. Will continue with plan of care.
[2019-09-24 20:00] VITALS: BP 158/83
[2019-09-24] MEDS: LORazepam Inj 2mg/ml 1ml IV PRN (20:31)
[2019-09-24] MEDS: Atorvastatin 20mg tab ORAL SCH (20:31)
[2019-09-24] MEDS: Epoetin Alfa-EPBX(ESRD on dialysis)3000 units/ml vial SUBQ SCH (21:45)
[2019-09-24] MEDS: Epoetin Alfa-EPBX(ESRD on dialysis)4000 units/ml vial SUBQ SCH (21:46)
[2019-09-25] VITALS: BP 156/74
[2019-09-25 04:00] VITALS: BP 168/82
[2019-09-25] MEDS: NovoLOG Insulin Flexpen SUBQ SCH ×3 (06:30→16:30)
--- NOTE | 2019-09-25 06:52 | General Progress Note ---
Assessment/Plan Assessment/Plan: GI: Plan Problems: (1) Diabetes mellitus (2) Physical debility (3) Anemia (4) Abnormal LFTs (5) ESRD (6) portal HTN (7) Ascites Plan Abdominal ultrasound reviewed with no biliary obstruction noted, common bile duct of 6.6 mm. The presence of portal hypertension with mild ascites. Hepatitis panel negative BP management given portal hypertension Obtain swallow evaluation given reported signs and symptoms of aspiration Trend LFTs elevated LFTS ? due to hepatic congestion from CHF plan paracentesis fu cardiology recs anemia work up We will follow along on a daily basis with any additional recommendations Subjective Allergies: Coded Allergies: No Known Allergies (Unverified , 07/06/19) Objective Last 24 Hour Vital Signs Date Time Temp Pulse Resp B/P (MAP) Pulse Ox O2 Delivery O2 Flow Rate FiO2 09/25/19 04:25 168/82 09/25/19 04:00 97.4 77 20 168/82 (110) 98 09/25/19 04:00 76 09/25/19 00:00 64 09/25/19 00:00 97.6 66 19 156/74 (101) 99 09/24/19 21:45 75 158/84 09/24/19 21:00 Nasal Cannula 2.0 09/24/19 20:18 97 Nasal Cannula 2.0 28 09/24/19 20:18 77 18 97 Nasal Cannula 2.0 28 09/24/19 20:00 97.2 75 16 158/83 (108) 97 09/24/19 20:00 67 09/24/19 18:27 148/63 09/24/19 18:27 148/63 09/24/19 16:00 98.3 64 18 148/63 (91) 97 09/24/19 16:00 66 09/24/19 12:00 60 09/24/19 12:00 97.1 66 18 131/68 (89) 97 09/24/19 09:24 72 156/72 09/24/19 09:24 156/72 09/24/19 09:24 156/72 09/24/19 09:00 Nasal Cannula 2.0 09/24/19 08:23 72 16 98 Nasal Cannula 2.0 28 09/24/19 08:23 98 Nasal Cannula 2.0 28 09/24/19 08:00 98.3 66 18 156/72 (100) 95 09/24/19 08:00 64 Intake and Output 09/24/19 09/25/19 19:00 07:00 Intake Total 120 ml Balance 120 ml Intake Oral 120 ml Height (Feet): 5 Height (Inches): 8.00 Weight (Pounds): 226 General Appearance: alert EENT: normal ENT inspection Neck: supple Cardiovascular: normal rate Respiratory/Chest: decreased breath sounds Abdomen: normal bowel sounds, non tender, soft Extremities: swelling Fan Nick MD Sep 25, 2019 06:52
--- NOTE | 2019-09-25 07:11 | NUR ---
HAND-OFF: Report given to ANTONY Kruger. Patient resting comfortably in bed, plan of care endorsed.
--- NOTE | 2019-09-25 07:15 | NUR ---
NURSE NOTES: Received report and patient from ANTONY Damon. awake, alert in bed resting. Patient denies any pain at this time. No signs and symptoms of shortness of breath and no acute distress noted. Patient confused, unable to make needs known. IV site is intact and patent, no signs of redness, bleeding, or infiltration noted. Bed is in lowest position with bedside rails up X3, brakes engaged for safety, call light within reach. Will continue with the plan of care.
[2019-09-25 07:59] LABS: HEMATOCRIT 30.6 % (42.0-52.0); HEMOGLOBIN 9.4 G/DL (14.2-18.0); MEAN CORPUSCULAR VOLUME 92 FL (80-99); PLATELET COUNT 110 K/UL (150-450); RED BLOOD COUNT 3.34 M/UL (4.70-6.10); RED CELL DISTRIBUTION WIDTH 16.4 % (11.6-14.8); WHITE BLOOD COUNT 14.9 K/UL (4.8-10.8)
[2019-09-25 08:00] VITALS: BP 159/86
[2019-09-25] MEDS: Docusate 100mg cap ORAL SCH ×2 (08:25→18:00)
[2019-09-25] MEDS: Aspirin Baby 81mg ORAL SCH (08:25)
[2019-09-25] MEDS: HydrALAZINE 25mg tab ORAL SCH ×2 (08:26→18:00)
[2019-09-25] MEDS: Heparin 5000 units/ml inj SUBQ SCH (08:27)
[2019-09-25] MEDS: Nephrovite tab (Rena-Vite) ORAL SCH (08:27)
[2019-09-25] MEDS: Carvedilol 6.25mg Tab ORAL SCH (08:27)
[2019-09-25] MEDS: Triamcinolone 0.1% oint TOPIC SCH ×3 (08:28→18:00)
[2019-09-25 08:31] LABS: PHOSPHORUS 6.2 MG/DL (2.5-4.9)
[2019-09-25 08:32] LABS: ALANINE AMINOTRANSFERASE 89 U/L (12-78); ALBUMIN 2.1 G/DL (3.4-5.0); ALBUMIN/GLOBULIN RATIO 0.4 (1.0-2.7); ALKALINE PHOSPHATASE 533 U/L (46-116); ANION GAP 10 mmol/L (5-15); ASPARTATE AMINO TRANSFERASE 47 U/L (15-37); BILIRUBIN,TOTAL 1.4 MG/DL (0.2-1.0); BLOOD UREA NITROGEN 97 mg/dL (7-18); CALCIUM 9.9 MG/DL (8.5-10.1); CARBON DIOXIDE 27 MMOL/L (21-32); CHLORIDE 99 MMOL/L (98-107); CREATININE 7.9 MG/DL (0.55-1.30); POTASSIUM 4.8 MMOL/L (3.5-5.1); SODIUM 136 MMOL/L (136-145)
--- NOTE | 2019-09-25 09:39 | Diagnostic Imaging Report ---
Indication: Shortness of breath Technique: One view of the chest Comparison: 09/24/2019 Findings: Again demonstrated is cardiomegaly. There are bilateral pleural effusions. There is bilateral interstitial and airspace edema. This appears slightly worse than on the prior study Impression: Suspect slight worsening of bilateral interstitial and airspace edema, since prior study of 09/24/2019
--- NOTE | 2019-09-25 10:11 | NUR ---
attempted to call pt Jessica Guerrero [phone], number was unavailable.
--- NOTE | 2019-09-25 11:12 | Infectious Diseases Prog Note ---
Assessment/Plan Assessment/Plan Assessment: Sepsis Persistent MRSA bacteremia- from HD cath- r/o endocarditis -09/18 Bcx 4/4 MRSA (from HD cath); 09/19 BCx 4/4 MRSA (peripheraL) 09/21 BCx 4/4 MRSA ; 09/23 Bx 4/4 MRSA; 09/24 bcx p -09/14 2d Echo: no vegetations - HD cath removed 09/22/19 Tip Cx - MRSA Leukocytosis, persistent Fever; SP -09/18 CXR: Worsening interstitial edema -09/14 CXR: . Unchanged right IJ approach dual-lumen catheter, tip near the cavoatrial junction. Similar-appearing, perhaps mildly improved right small- moderate and left small pleural effusions with passive atelectasis or consolidation, correlate clinically. Unchanged cardiomegaly. Unchanged low lung volumes. 09/14 Bcx NTD CHF exacerbation Troponinemia Elevated LFts; improving -Abd US: Portal hypertension suspected with ascites, splenomegaly and abnormal Doppler evaluation of the main portal vein. Thickened gallbladder wall nonspecific. Mild ascites. Splenomegaly. 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 Left kidney not seen well. -Hiv sc, acute hep panel neg HTN GERD Dm2 c/w nephropathy neuropathy and gastroparesis severe CM w/ EF 15-20% ESRD on HD MWF via R side permacath SN[facility] resident Plan: -Cont empiric IV Vancomycin #8 for MRSA bacteremia -09/20 SP Cefepime #2 -Await 48-72hrs of negative blood cultures prior to insertion of permanent HD cath -f/u cx -Monitor CBC/CMP, temperaturese -Cdiff if diarrhea -f/u repeat Bcx x2 -JAMES to eval for endocarditis-plan for Thank you for this consultation. Will continue to follow along with you. Discussed with RN Subjective Allergies: Coded Allergies: No Known Allergies (Unverified , 07/06/19) Subjective afebrile leukocytosis persistent at 14 persistent bacteremia; pending repeat Bcx Objective Vital Signs Last 24 Hour Vital Signs Date Time Temp Pulse Resp B/P (MAP) Pulse Ox O2 Delivery O2 Flow Rate FiO2 09/25/19 09:00 Nasal Cannula 2.0 09/25/19 08:27 72 159/86 09/25/19 08:26 159/86 09/25/19 08:26 159/86 09/25/19 08:00 97.9 72 20 159/86 (110) 97 09/25/19 04:25 168/82 09/25/19 04:00 97.4 77 20 168/82 (110) 98 09/25/19 04:00 76 09/25/19 00:00 64 09/25/19 00:00 97.6 66 19 156/74 (101) 99 09/24/19 21:45 75 158/84 09/24/19 21:00 Nasal Cannula 2.0 09/24/19 20:18 97 Nasal Cannula 2.0 28 09/24/19 20:18 77 18 97 Nasal Cannula 2.0 28 09/24/19 20:00 97.2 75 16 158/83 (108) 97 09/24/19 20:00 67 09/24/19 18:27 148/63 09/24/19 18:27 148/63 09/24/19 16:00 98.3 64 18 148/63 (91) 97 09/24/19 16:00 66 09/24/19 12:00 60 09/24/19 12:00 97.1 66 18 131/68 (89) 97 Height (Feet): 5 Height (Inches): 8.00 Weight (Pounds): 226 Objective GENERAL: The patient is awake and responsive, in no acute distress. HEAD AND NECK: Pupils are equally reactive to light. Extraocular movements intact. Neck was supple. Positive JVD. LUNGS: Good air entry. No wheezing or rhonchi. Decreased air in the bases. HEART: S1, S2. Distant heart sounds. No murmur or gallop. Chest wall has a PermCath. No sign of infection. ABDOMEN: Soft, nondistended, and nontender. Positive bowel sounds. EXTREMITIES: +3 edema in bilateral lower extremity. No cyanosis or clubbing. PELVIC: Scrotum has edema and penile edema was noted. Microbiology Date/Time Source Procedure Growth Status 09/23/19 14:50 Blood Blood Culture - Preliminary Staphylococcus Aureus Resulted 09/23/19 14:40 Blood Blood Culture - Preliminary Staphylococcus Aureus Resulted 09/22/19 13:45 Catheter Site Catheter Tip Culture - Final Staphylococcus Aureus - Mrsa Complete Laboratory Tests Test 09/25/19 07:25 White Blood Count 14.9 K/UL (4.8-10.8) H Red Blood Count 3.34 M/UL (4.70-6.10) L Hemoglobin 9.4 G/DL (14.2-18.0) L Hematocrit 30.6 % (42.0-52.0) L Mean Corpuscular Volume 92 FL (80-99) Mean Corpuscular Hemoglobin 28.1 PG (27.0-31.0) Mean Corpuscular Hemoglobin Concent 30.7 G/DL (32.0-36.0) L Red Cell Distribution Width 16.4 % (11.6-14.8) H Platelet Count 110 K/UL (150-450) L Mean Platelet Volume 4.9 FL (6.5-10.1) L Neutrophils (%) (Auto) % (45.0-75.0) Lymphocytes (%) (Auto) % (20.0-45.0) Monocytes (%) (Auto) % (1.0-10.0) Eosinophils (%) (Auto) % (0.0-3.0) Basophils (%) (Auto) % (0.0-2.0) Differential Total Cells Counted 100 Neutrophils % (Manual) 82 % (45-75) H Lymphocytes % (Manual) 8 % (20-45) L Monocytes % (Manual) 10 % (1-10) Eosinophils % (Manual) 0 % (0-3) Basophils % (Manual) 0 % (0-2) Band Neutrophils 0 % (0-8) Platelet Estimate Decreased L Platelet Morphology Normal Hypochromasia 1+ Anisocytosis 1+ Sodium Level 136 MMOL/L (136-145) Potassium Level 4.8 MMOL/L (3.5-5.1) Chloride Level 99 MMOL/L (98-107) Carbon Dioxide Level 27 MMOL/L (21-32) Anion Gap 10 mmol/L (5-15) Blood Urea Nitrogen 97 mg/dL (7-18) H Creatinine 7.9 MG/DL (0.55-1.30) H Estimat Glomerular Filtration Rate 7.0 mL/min (>60) Glucose Level 93 MG/DL (74-106) Calcium Level 9.9 MG/DL (8.5-10.1) Phosphorus Level 6.2 MG/DL (2.5-4.9) H Magnesium Level 2.1 MG/DL (1.8-2.4) Total Bilirubin 1.4 MG/DL (0.2-1.0) H Direct Bilirubin 1.0 MG/DL (0.0-0.3) H Aspartate Amino Transf (AST/SGOT) 47 U/L (15-37) H Alanine Aminotransferase (ALT/SGPT) 89 U/L (12-78) H Alkaline Phosphatase 533 U/L (46-116) H Pro-B-Type Natriuretic Peptide > 78458 pg/mL (0-125) H Total Protein 7.4 G/DL (6.4-8.2) Albumin 2.1 G/DL (3.4-5.0) L Globulin 5.3 g/dL Albumin/Globulin Ratio 0.4 (1.0-2.7) L Random Vancomycin Level 23.2 ug/mL Current Medications Medications (Trade) Dose Ordered Sig/Trav Route PRN Reason Start Time Stop Time Status Last Admin Dose Admin Acetaminophen (Tylenol) 500 mg Q6H PRN ORAL Mild Pain (Pain Scale 1-3) 09/15/19 00:15 10/14/19 22:59 09/21/19 01:25 Acetaminophen (Tylenol) 650 mg Q4H PRN ORAL Mild Pain (Pain Scale 1-3) 09/14/19 23:00 10/14/19 22:59 09/22/19 13:30 Albuterol/ Ipratropium (Albuterol/ Ipratropium) 3 ml Q4H PRN HHN Shortness of Breath 09/23/19 09:30 09/28/19 09:29 Aspirin (ASA) 81 mg DAILY ORAL 09/15/19 09:00 10/15/19 08:59 09/25/19 08:25 Atorvastatin Calcium (Lipitor) 20 mg BEDTIME ORAL 09/15/19 21:00 10/15/19 20:59 09/24/19 20:31 Carvedilol (Coreg) 6.25 mg EVERY 12 HOURS ORAL 09/22/19 21:00 10/22/19 20:59 09/25/19 08:27 Clonidine HCl (Catapres Tab) 0.1 mg EVERY 4 HOURS PRN ORAL For High Blood Pressure 09/15/19 01:00 10/15/19 00:59 09/25/19 04:25 Dextrose (Dextrose 50%) 25 ml Q30M PRN IV Hypoglycemia 09/14/19 23:00 10/14/19 22:59 Dextrose (Dextrose 50%) 50 ml Q30M PRN IV Hypoglycemia 09/14/19 23:00 10/14/19 22:59 Diphenhydramine HCl (Benadryl) 25 mg Q6H PRN ORAL Itching/Pruritis 09/14/19 23:00 10/14/19 22:59 09/25/19 04:25 Docusate Sodium (Colace) 100 mg BID ORAL 09/15/19 09:00 10/15/19 08:59 09/25/19 08:25 Epoetin Garrett (Epoetin Garrett(ESRD on dialysis)) 3,000 unit TUE-TUE-TUE SUBQ 09/17/19 21:00 10/17/19 20:59 09/24/19 21:45 Epoetin Garrett (Epoetin Garrett(ESRD on dialysis)) 4,000 unit TUE- SUBQ 09/17/19 21:00 10/17/19 20:59 09/24/19 21:46 Famotidine (Pepcid) 20 mg DAILY ORAL 09/15/19 09:00 10/15/19 08:59 09/25/19 08:25 Heparin Sodium (Porcine) (Heparin 5000 units/ml) 5,000 units EVERY 12 HOURS SUBQ 09/15/19 13:45 10/15/19 13:44 Hydralazine HCl (Apresoline) 25 mg BID ORAL 09/15/19 18:00 10/15/19 08:59 09/25/19 08:26 Insulin Aspart (NovoLOG) BEFORE MEALS AND HS SUBQ 09/15/19 06:30 10/15/19 06:29 09/24/19 21:48 Isosorbide Dinitrate (Isordil) 10 mg BID ORAL 09/15/19 18:00 10/15/19 17:59 09/25/19 08:26 Lorazepam (Ativan 2mg/ml 1ml) 0.5 mg Q6H PRN IV For Anxiety 09/22/19 12:45 09/29/19 12:44 09/24/19 20:31 Nitroglycerin (Ntg) 0.4 mg Q5M PRN SL Prn Chest Pain 09/14/19 23:00 10/14/19 22:59 09/15/19 11:03 Ondansetron HCl (Zofran) 4 mg Q6H PRN ORAL Nausea & Vomiting 09/14/19 23:00 10/14/19 22:59 09/19/19 18:02 Pantoprazole (Protonix) 40 mg DAILY ORAL 09/15/19 09:00 10/15/19 08:59 09/25/19 08:25 Polyethylene Glycol (Miralax) 17 gm DAILYPRN PRN ORAL Constipation 09/14/19 23:00 10/14/19 22:59 Prochlorperazine (Compazine) 10 mg Q6H PRN IVP Nausea & Vomiting 09/14/19 23:00 10/14/19 22:59 Triamcinolone (Kenalog) 1 applic TID TOPIC 09/15/19 09:00 10/15/19 08:59 09/25/19 08:28 Vancomycin HCl (Vanco rx to dose) 1 ea DAILY PRN MISC Per rx protocol 09/18/19 19:15 10/18/19 19:14 Vitamin B Complex/ Vit C/Folic Acid (Nephrovite) 1 tab DAILY ORAL 09/15/19 09:00 10/15/19 08:59 09/25/19 08:27 Leila Granado M.D. Sep 25, 2019 11:12
--- NOTE | 2019-09-25 11:42 | Cardiac Electrophysiology PN ---
Assessment/Plan Assessment/Plan 1. Troponin elevation but levels are flat, likely due to renal failure Continue aspirin, Coreg and Lipitor 2. Severe cardiomyopathy with EF of 15% to 20%. Repeat echo showed EF 55%! Continue Coreg, hydralazine, HD and Isordil. 3. Hypertension. Continue current heart failure therapy. 4. Bradycardia. Better with decreasing Coreg to 6.25 bid 5. End-stage renal disease, on hemodialysis. HD catheter removed 6. Diabetes. 7. MRSA bacteremia- likely from HD cath- r/o endocarditis -09/18 Bcx 01/25 MRSA (from HD cath); 09/19 BCx 01/25 MRSA (peripheraL) 09/21 BCx 01/25 MRSA -09/14 2d Echo: no vegetations - HD cath removed 09/22/19. May need JAMES DW RN Subjective Subjective In SR with first degree AVB and Wenckebach. No CP or SOB.Final echo EF 55% Objective Last 24 Hour Vital Signs Date Time Temp Pulse Resp B/P (MAP) Pulse Ox O2 Delivery O2 Flow Rate FiO2 09/25/19 09:00 Nasal Cannula 2.0 09/25/19 08:27 72 159/86 09/25/19 08:26 159/86 09/25/19 08:26 159/86 09/25/19 08:00 97.9 72 20 159/86 (110) 97 09/25/19 04:25 168/82 09/25/19 04:00 97.4 77 20 168/82 (110) 98 09/25/19 04:00 76 09/25/19 00:00 64 09/25/19 00:00 97.6 66 19 156/74 (101) 99 09/24/19 21:45 75 158/84 09/24/19 21:00 Nasal Cannula 2.0 09/24/19 20:18 97 Nasal Cannula 2.0 28 09/24/19 20:18 77 18 97 Nasal Cannula 2.0 28 09/24/19 20:00 97.2 75 16 158/83 (108) 97 09/24/19 20:00 67 09/24/19 18:27 148/63 09/24/19 18:27 148/63 09/24/19 16:00 98.3 64 18 148/63 (91) 97 09/24/19 16:00 66 09/24/19 12:00 60 09/24/19 12:00 97.1 66 18 131/68 (89) 97 Intake and Output 09/24/19 09/25/19 18:59 06:59 Intake Total 120 ml Balance 120 ml Intake Oral 120 ml Laboratory Tests Test 09/25/19 07:25 White Blood Count 14.9 K/UL (4.8-10.8) H Red Blood Count 3.34 M/UL (4.70-6.10) L Hemoglobin 9.4 G/DL (14.2-18.0) L Hematocrit 30.6 % (42.0-52.0) L Mean Corpuscular Volume 92 FL (80-99) Mean Corpuscular Hemoglobin 28.1 PG (27.0-31.0) Mean Corpuscular Hemoglobin Concent 30.7 G/DL (32.0-36.0) L Red Cell Distribution Width 16.4 % (11.6-14.8) H Platelet Count 110 K/UL (150-450) L Mean Platelet Volume 4.9 FL (6.5-10.1) L Neutrophils (%) (Auto) % (45.0-75.0) Lymphocytes (%) (Auto) % (20.0-45.0) Monocytes (%) (Auto) % (1.0-10.0) Eosinophils (%) (Auto) % (0.0-3.0) Basophils (%) (Auto) % (0.0-2.0) Differential Total Cells Counted 100 Neutrophils % (Manual) 82 % (45-75) H Lymphocytes % (Manual) 8 % (20-45) L Monocytes % (Manual) 10 % (1-10) Eosinophils % (Manual) 0 % (0-3) Basophils % (Manual) 0 % (0-2) Band Neutrophils 0 % (0-8) Platelet Estimate Decreased L Platelet Morphology Normal Hypochromasia 1+ Anisocytosis 1+ Sodium Level 136 MMOL/L (136-145) Potassium Level 4.8 MMOL/L (3.5-5.1) Chloride Level 99 MMOL/L (98-107) Carbon Dioxide Level 27 MMOL/L (21-32) Anion Gap 10 mmol/L (5-15) Blood Urea Nitrogen 97 mg/dL (7-18) H Creatinine 7.9 MG/DL (0.55-1.30) H Estimat Glomerular Filtration Rate 7.0 mL/min (>60) Glucose Level 93 MG/DL (74-106) Calcium Level 9.9 MG/DL (8.5-10.1) Phosphorus Level 6.2 MG/DL (2.5-4.9) H Magnesium Level 2.1 MG/DL (1.8-2.4) Total Bilirubin 1.4 MG/DL (0.2-1.0) H Direct Bilirubin 1.0 MG/DL (0.0-0.3) H Aspartate Amino Transf (AST/SGOT) 47 U/L (15-37) H Alanine Aminotransferase (ALT/SGPT) 89 U/L (12-78) H Alkaline Phosphatase 533 U/L (46-116) H Pro-B-Type Natriuretic Peptide > 29038 pg/mL (0-125) H Total Protein 7.4 G/DL (6.4-8.2) Albumin 2.1 G/DL (3.4-5.0) L Globulin 5.3 g/dL Albumin/Globulin Ratio 0.4 (1.0-2.7) L Random Vancomycin Level 23.2 ug/mL Microbiology Date/Time Source Procedure Growth Status 09/23/19 14:50 Blood Blood Culture - Preliminary Staphylococcus Aureus Resulted 09/23/19 14:40 Blood Blood Culture - Preliminary Staphylococcus Aureus Resulted 09/22/19 13:45 Catheter Site Catheter Tip Culture - Final Staphylococcus Aureus - Mrsa Complete Objective HEAD AND NECK: Mild JVD. LUNGS: Decreased breath sounds. CARDIOVASCULAR: Regular S1 and S2 with no gallop or murmur. ABDOMEN: Soft. EXTREMITIES: 2+ pitting edema and scrotal edema. Guero Garcia MD Sep 25, 2019 11:42
[2019-09-25 12:00] VITALS: BP 137/58
--- NOTE | 2019-09-25 12:30 | Pulmonology Progress Note ---
Assessment/Plan Problems: (1) Pleural effusion, right (2) Bacteremia (3) Pulmonary edema (4) CHF (congestive heart failure) (5) Physical debility (6) Anemia (7) ESRD needing dialysis (8) Diabetes mellitus (9) HTN (hypertension) Assessment/Plan Blood cultures are positive for staph aureus on - - and Dec 1 and Dc 2 still positive respiratory stable watch effusion, no need for thoracentesis incentive spirometry persistent leukocytosis, and rising on Vancomycin IV respiratory treatment titrate fio2 to sat of 92 HD, MWF symptomatic treatment prbc prn check stool for OB still pending Subjective ROS Limited/Unobtainable: No Constitutional: Reports: no symptoms HEENT: Repors: no symptoms Allergies: Coded Allergies: No Known Allergies (Unverified , 07/06/19) Objective Last 24 Hour Vital Signs Date Time Temp Pulse Resp B/P (MAP) Pulse Ox O2 Delivery O2 Flow Rate FiO2 09/25/19 12:00 97.5 63 18 137/58 (84) 96 09/25/19 09:00 Nasal Cannula 2.0 09/25/19 08:27 72 159/86 09/25/19 08:26 159/86 09/25/19 08:26 159/86 09/25/19 08:00 97.9 72 20 159/86 (110) 97 09/25/19 08:00 72 09/25/19 04:25 168/82 09/25/19 04:00 97.4 77 20 168/82 (110) 98 09/25/19 04:00 76 09/25/19 00:00 64 09/25/19 00:00 97.6 66 19 156/74 (101) 99 09/24/19 21:45 75 158/84 09/24/19 21:00 Nasal Cannula 2.0 09/24/19 20:18 97 Nasal Cannula 2.0 28 09/24/19 20:18 77 18 97 Nasal Cannula 2.0 28 09/24/19 20:00 97.2 75 16 158/83 (108) 97 09/24/19 20:00 67 09/24/19 18:27 148/63 09/24/19 18:27 148/63 09/24/19 16:00 98.3 64 18 148/63 (91) 97 09/24/19 16:00 66 Intake and Output 09/24/19 09/25/19 18:59 06:59 Intake Total 120 ml Balance 120 ml Intake Oral 120 ml Objective General Appearance: chronically ill looking, pale HEENT: atraumatic Respiratory/Chest: chest wall non-tender, lungs clear Cardiovascular: normal peripheral pulses, regularly irregular Abdomen: normal bowel sounds, no scars Microbiology Date/Time Source Procedure Growth Status 09/24/19 14:39 Blood Blood Culture - Preliminary Resulted 09/24/19 14:30 Blood Blood Culture - Preliminary Resulted 09/23/19 14:50 Blood Blood Culture - Preliminary Staphylococcus Aureus Resulted 09/23/19 14:40 Blood Blood Culture - Preliminary Staphylococcus Aureus Resulted 09/22/19 13:45 Catheter Site Catheter Tip Culture - Final Staphylococcus Aureus - Mrsa Complete Laboratory Tests 09/25/19 07:25: White Blood Count 14.9H, Red Blood Count 3.34L, Hemoglobin 9.4L, Hematocrit 30.6L, Mean Corpuscular Volume 92, Mean Corpuscular Hemoglobin 28.1, Mean Corpuscular Hemoglobin Concent 30.7L, Red Cell Distribution Width 16.4H, Platelet Count 110L, Mean Platelet Volume 4.9L, Neutrophils (%) (Auto) , Lymphocytes (%) (Auto) , Monocytes (%) (Auto) , Eosinophils (%) (Auto) , Basophils (%) (Auto) , Differential Total Cells Counted 100, Neutrophils % ( Manual) 82H, Lymphocytes % (Manual) 8L, Monocytes % (Manual) 10, Eosinophils % ( Manual) 0, Basophils % (Manual) 0, Band Neutrophils 0, Platelet Estimate DecreasedL, Platelet Morphology Normal, Hypochromasia 1+, Anisocytosis 1+, Sodium Level 136, Potassium Level 4.8, Chloride Level 99, Carbon Dioxide Level 27, Anion Gap 10, Blood Urea Nitrogen 97H, Creatinine 7.9H, Estimat Glomerular Filtration Rate 7.0, Glucose Level 93, Calcium Level 9.9, Phosphorus Level 6.2H , Magnesium Level 2.1, Total Bilirubin 1.4H, Direct Bilirubin 1.0H, Aspartate Amino Transf (AST/SGOT) 47H, Alanine Aminotransferase (ALT/SGPT) 89H, Alkaline Phosphatase 533H, Pro-B-Type Natriuretic Peptide > 12621E, Total Protein 7.4, Albumin 2.1L, Globulin 5.3, Albumin/Globulin Ratio 0.4L, Random Vancomycin Level 23.2 Current Medications Medications (Trade) Dose Ordered Sig/Trav Route PRN Reason Start Time Stop Time Status Last Admin Dose Admin Acetaminophen (Tylenol) 500 mg Q6H PRN ORAL Mild Pain (Pain Scale 1-3) 09/15/19 00:15 10/14/19 22:59 09/21/19 01:25 Acetaminophen (Tylenol) 650 mg Q4H PRN ORAL Mild Pain (Pain Scale 1-3) 09/14/19 23:00 10/14/19 22:59 09/22/19 13:30 Albuterol/ Ipratropium (Albuterol/ Ipratropium) 3 ml Q4H PRN HHN Shortness of Breath 09/23/19 09:30 09/28/19 09:29 Aspirin (ASA) 81 mg DAILY ORAL 09/15/19 09:00 10/15/19 08:59 09/25/19 08:25 Atorvastatin Calcium (Lipitor) 20 mg BEDTIME ORAL 09/15/19 21:00 10/15/19 20:59 09/24/19 20:31 Carvedilol (Coreg) 6.25 mg EVERY 12 HOURS ORAL 09/22/19 21:00 10/22/19 20:59 09/25/19 08:27 Clonidine HCl (Catapres Tab) 0.1 mg EVERY 4 HOURS PRN ORAL For High Blood Pressure 09/15/19 01:00 10/15/19 00:59 09/25/19 04:25 Dextrose (Dextrose 50%) 25 ml Q30M PRN IV Hypoglycemia 09/14/19 23:00 10/14/19 22:59 Dextrose (Dextrose 50%) 50 ml Q30M PRN IV Hypoglycemia 09/14/19 23:00 10/14/19 22:59 Diphenhydramine HCl (Benadryl) 25 mg Q6H PRN ORAL Itching/Pruritis 09/14/19 23:00 10/14/19 22:59 09/25/19 04:25 Docusate Sodium (Colace) 100 mg BID ORAL 09/15/19 09:00 10/15/19 08:59 09/25/19 08:25 Epoetin Garrett (Epoetin Garrett(ESRD on dialysis)) 3,000 unit TUE-TUE-TUE SUBQ 09/17/19:00 10/17/19 20:59 09/24/19 21:45 Epoetin Garrett (Epoetin Garrett(ESRD on dialysis)) 4,000 unit TUE- SUBQ 09/17/19 21:00 10/17/19 20:59 09/24/19 21:46 Famotidine (Pepcid) 20 mg DAILY ORAL 09/15/19 09:00 10/15/19 08:59 09/25/19 08:25 Heparin Sodium (Porcine) (Heparin 5000 units/ml) 5,000 units EVERY 12 HOURS SUBQ 09/15/19 13:45 10/15/19 13:44 Hydralazine HCl (Apresoline) 25 mg BID ORAL 09/15/19 18:00 10/15/19 08:59 09/25/19 08:26 Insulin Aspart (NovoLOG) BEFORE MEALS AND HS SUBQ 09/15/19 06:30 10/15/19 06:29 09/24/19 21:48 Isosorbide Dinitrate (Isordil) 10 mg BID ORAL 09/15/19 18:00 10/15/19 17:59 09/25/19 08:26 Lorazepam (Ativan 2mg/ml 1ml) 0.5 mg Q6H PRN IV For Anxiety 09/22/19 12:45 09/29/19 12:44 09/24/19 20:31 Nitroglycerin (Ntg) 0.4 mg Q5M PRN SL Prn Chest Pain 09/14/19 23:00 10/14/19 22:59 09/15/19 11:03 Ondansetron HCl (Zofran) 4 mg Q6H PRN ORAL Nausea & Vomiting 09/14/19 23:00 10/14/19 22:59 09/19/19 18:02 Pantoprazole (Protonix) 40 mg DAILY ORAL 09/15/19 09:00 10/15/19 08:59 09/25/19 08:25 Polyethylene Glycol (Miralax) 17 gm DAILYPRN PRN ORAL Constipation 09/14/19 23:00 10/14/19 22:59 Prochlorperazine (Compazine) 10 mg Q6H PRN IVP Nausea & Vomiting 09/14/19 23:00 10/14/19 22:59 Triamcinolone (Kenalog) 1 applic TID TOPIC 09/15/19 09:00 10/15/19 08:59 09/25/19 08:28 Vancomycin HCl (Vanco rx to dose) 1 ea DAILY PRN MISC Per rx protocol 09/18/19 19:15 10/18/19 19:14 Vitamin B Complex/ Vit C/Folic Acid (Nephrovite) 1 tab DAILY ORAL 09/15/19 09:00 10/15/19 08:59 09/25/19 08:27 Christy Mercer MD Sep 25, 2019 12:30
--- NOTE | 2019-09-25 12:57 | Cardiology Report ---
APPROVED REPORT EKG Measurement Heart [id number] Sinus rhythm with 1st degree AV block Nonspecific T wave abnormality Abnormal ECG
--- NOTE | 2019-09-25 12:58 | Cardiology Report ---
APPROVED REPORT EKG Measurement Heart [id number] Sinus rhythm with 1st degree AV block Nonspecific ST and T wave abnormality Abnormal ECG
--- NOTE | 2019-09-25 14:22 | Surgery Progress Note ---
Surgery Progress Note Subjective Procedure Performed Removal of right tunneled permacath Additional Comments site clean still with wbc comfortable on abx Objective Last 24 Hour Vital Signs Date Time Temp Pulse Resp B/P (MAP) Pulse Ox O2 Delivery O2 Flow Rate FiO2 09/25/19 12:00 63 09/25/19 12:00 97.5 63 18 137/58 (84) 96 09/25/19 09:00 Nasal Cannula 2.0 09/25/19 08:27 72 159/86 09/25/19 08:26 159/86 09/25/19 08:26 159/86 09/25/19 08:00 97.9 72 20 159/86 (110) 97 09/25/19 08:00 72 09/25/19 04:25 168/82 09/25/19 04:00 97.4 77 20 168/82 (110) 98 09/25/19 04:00 76 09/25/19 00:00 64 09/25/19 00:00 97.6 66 19 156/74 (101) 99 09/24/19 21:45 75 158/84 09/24/19 21:00 Nasal Cannula 2.0 09/24/19 20:18 97 Nasal Cannula 2.0 28 09/24/19 20:18 77 18 97 Nasal Cannula 2.0 28 09/24/19 20:00 97.2 75 16 158/83 (108) 97 09/24/19 20:00 67 09/24/19 18:27 148/63 09/24/19 18:27 148/63 09/24/19 16:00 98.3 64 18 148/63 (91) 97 09/24/19 16:00 66 I&O Intake and Output 09/24/19 09/25/19 18:59 06:59 Intake Total 120 ml Balance 120 ml Intake Oral 120 ml Dressing: dry, other Wound: clean, other Drains: other Cardiovascular: RSR Respiratory: clear Abdomen: soft, non-tender, present bowel sounds Extremities: no tenderness, no cyanosis Laboratory Tests Test 09/25/19 07:25 White Blood Count 14.9 K/UL (4.8-10.8) H Red Blood Count 3.34 M/UL (4.70-6.10) L Hemoglobin 9.4 G/DL (14.2-18.0) L Hematocrit 30.6 % (42.0-52.0) L Mean Corpuscular Volume 92 FL (80-99) Mean Corpuscular Hemoglobin 28.1 PG (27.0-31.0) Mean Corpuscular Hemoglobin Concent 30.7 G/DL (32.0-36.0) L Red Cell Distribution Width 16.4 % (11.6-14.8) H Platelet Count 110 K/UL (150-450) L Mean Platelet Volume 4.9 FL (6.5-10.1) L Neutrophils (%) (Auto) % (45.0-75.0) Lymphocytes (%) (Auto) % (20.0-45.0) Monocytes (%) (Auto) % (1.0-10.0) Eosinophils (%) (Auto) % (0.0-3.0) Basophils (%) (Auto) % (0.0-2.0) Differential Total Cells Counted 100 Neutrophils % (Manual) 82 % (45-75) H Lymphocytes % (Manual) 8 % (20-45) L Monocytes % (Manual) 10 % (1-10) Eosinophils % (Manual) 0 % (0-3) Basophils % (Manual) 0 % (0-2) Band Neutrophils 0 % (0-8) Platelet Estimate Decreased L Platelet Morphology Normal Hypochromasia 1+ Anisocytosis 1+ Sodium Level 136 MMOL/L (136-145) Potassium Level 4.8 MMOL/L (3.5-5.1) Chloride Level 99 MMOL/L (98-107) Carbon Dioxide Level 27 MMOL/L (21-32) Anion Gap 10 mmol/L (5-15) Blood Urea Nitrogen 97 mg/dL (7-18) H Creatinine 7.9 MG/DL (0.55-1.30) H Estimat Glomerular Filtration Rate 7.0 mL/min (>60) Glucose Level 93 MG/DL (74-106) Calcium Level 9.9 MG/DL (8.5-10.1) Phosphorus Level 6.2 MG/DL (2.5-4.9) H Magnesium Level 2.1 MG/DL (1.8-2.4) Total Bilirubin 1.4 MG/DL (0.2-1.0) H Direct Bilirubin 1.0 MG/DL (0.0-0.3) H Aspartate Amino Transf (AST/SGOT) 47 U/L (15-37) H Alanine Aminotransferase (ALT/SGPT) 89 U/L (12-78) H Alkaline Phosphatase 533 U/L (46-116) H Pro-B-Type Natriuretic Peptide > 84964 pg/mL (0-125) H Total Protein 7.4 G/DL (6.4-8.2) Albumin 2.1 G/DL (3.4-5.0) L Globulin 5.3 g/dL Albumin/Globulin Ratio 0.4 (1.0-2.7) L Random Vancomycin Level 23.2 ug/mL Plan Problems: (1) Bacteremia Assessment & Plan: This is a 63-year-old male with multi-medical comorbidities end-stage renal disease on dialysis currently through right tunneled catheter who now has bacteremia MRSA staph aureus and worsening leukocytosis. Was scheduled to have catheter removed and unfortunately is not been done so far and I was called to assist with care and management. Patient seen, patient evaluated, chart reviewed. Given these above findings catheter should be removed as soon as possible if not prior. Furthermore abnormal LFTs with unknown etiology needs further work-up. Pending coags prior to removal of catheter to ensure not coagulopathic and safe for removal -coags noted. line removed 09/22. tip sent for cx Please see procedure note once removed cath tip and blood cx staph a likely source cont with abx now that line removed plan for another HD line Ultrasound abdomen Trend LFTs IV antibiotics as per infectious disease Trend labs Thank you will follow with recommendations (2) ESRD needing dialysis (3) Noncompliance with renal dialysis Assessment & Plan: Pt noted to have dry necrotic tip of R index finger. No erythema or swelling of digit noted. Dark discoloration noted to sacrum . Maroon discoloration without induration or fluctuance noted to R buttocks(L) 3.5cm x (W).5cm.Pt denied tenderness when palpated. Maroon discoloration without induration or fluctuance noted to R ischium.non- tender when palpated.(L)0.8cm x (W)2cm. Maroon discoloration without induration noted to L ischium.(L)3cm x (W)3.5cm.Non -tender when palpated. At base of scrotum pt noted to have scattered purpuric areas in circular pattern at base of scrotum , with one large purpuric area in center measuring(L) 3.5cm x (W)1cm. Per staff pt presented on admission with enlarged scrotum which has since resolved. R and L heels are dry firm and blanchable. Tx.Plan: Apply Cavilon Skin Barrier to base of Scrotum. Cover with Optifoam drsg. Change every 3 days and prn. Apply Moisture Barrier Paste to Sacrum. Cover with Optifoam drsg. Change every 3 days and prn. Apply Moisture Barrier Paste to R and L ischium. Cover each site with Optifoam drsg. Change every 3 days and prn. Swab R index finger with Betadine Daily. Leave open to Air. Apply Cavilon Skin Barrier to Both Heels. Cover each heel with Optifoam drsg. Change every 7 days and prn. Reposition at least every 2hours or as tolerated. Off-load heels with Pillow. APM/ROSI Mattress overlay. (4) Abnormal LFTs Assessment & Plan: The liver is unremarkable. The main portal vein shows abnormal pulsatile waveform with flow both antegrade and retrograde. There is mild ascites. There is a moderate right pleural effusion. No biliary ductal dilatation is identified. There is thickening of the wall the gallbladder. No gallstones are identified. CBD is 6.6 mm. The spleen is enlarged measuring between 13 and 14 cm. Kidneys are echogenic. There is no hydronephrosis appreciated. The left kidney is not well seen. Pancreas is also not well seen. IMPRESSION: Portal hypertension suspected with ascites, splenomegaly and abnormal Doppler evaluation of the main portal vein. Thickened gallbladder wall nonspecific. Mild ascites Splenomegaly Right pleural effusion para graft medical renal disease suspected. Left kidney not seen well. Ciro Hurtado Sep 25, 2019 14:22
[2019-09-25 15:58] VITALS: BP 146/72
[2019-09-25] MEDS ORDERED: 1/2 NS 1000ml IV ONE (17:39)
--- NOTE | 2019-09-25 18:07 | Internal Med Progress Note ---
Subjective Date of Service: Sep 25, 2019 Physician Name AndressaKuldip Attending Physician Geovany Roblero MD Current Medications Medications (Trade) Dose Ordered Sig/Trav Route PRN Reason Start Time Stop Time Status Last Admin Dose Admin Acetaminophen (Tylenol) 500 mg Q6H PRN ORAL Mild Pain (Pain Scale 1-3) 09/15/19 00:15 10/14/19 22:59 09/21/19 01:25 Acetaminophen (Tylenol) 650 mg Q4H PRN ORAL Mild Pain (Pain Scale 1-3) 09/14/19 23:00 10/14/19 22:59 09/22/19 13:30 Albuterol/ Ipratropium (Albuterol/ Ipratropium) 3 ml Q4H PRN HHN Shortness of Breath 09/23/19 09:30 09/28/19 09:29 Aspirin (ASA) 81 mg DAILY ORAL 09/15/19 09:00 10/15/19 08:59 09/25/19 08:25 Atorvastatin Calcium (Lipitor) 20 mg BEDTIME ORAL 09/15/19 21:00 10/15/19 20:59 09/24/19 20:31 Carvedilol (Coreg) 6.25 mg EVERY 12 HOURS ORAL 09/22/19 21:00 10/22/19 20:59 09/25/19 08:27 Clonidine HCl (Catapres Tab) 0.1 mg EVERY 4 HOURS PRN ORAL For High Blood Pressure 09/15/19 01:00 10/15/19 00:59 09/25/19 04:25 Dextrose (Dextrose 50%) 25 ml Q30M PRN IV Hypoglycemia 09/14/19 23:00 10/14/19 22:59 Dextrose (Dextrose 50%) 50 ml Q30M PRN IV Hypoglycemia 09/14/19 23:00 10/14/19 22:59 Diphenhydramine HCl (Benadryl) 25 mg Q6H PRN ORAL Itching/Pruritis 09/14/19 23:00 10/14/19 22:59 09/25/19 04:25 Docusate Sodium (Colace) 100 mg BID ORAL 09/15/19 09:00 10/15/19 08:59 09/25/19 08:25 Epoetin Garrett (Epoetin Garrett(ESRD on dialysis)) 3,000 unit TUE-TUE-TUE SUBQ 09/17/19 21:00 10/17/19 20:59 09/24/19 21:45 Epoetin Garrett (Epoetin Garrett(ESRD on dialysis)) 4,000 unit SUBQ 09/17/19 21:00 10/17/19 20:59 09/24/19 21:46 Famotidine (Pepcid) 20 mg DAILY ORAL 09/15/19 09:00 10/15/19 08:59 09/25/19 08:25 Heparin Sodium (Porcine) (Heparin 5000 units/ml) 5,000 units EVERY 12 HOURS SUBQ 09/15/19 13:45 10/15/19 13:44 Hydralazine HCl (Apresoline) 25 mg BID ORAL 09/15/19 18:00 10/15/19 08:59 09/25/19 08:26 Insulin Aspart (NovoLOG) BEFORE MEALS AND HS SUBQ 09/15/19 06:30 10/15/19 06:29 09/24/19 21:48 Isosorbide Dinitrate (Isordil) 10 mg BID ORAL 09/15/19 18:00 10/15/19 17:59 09/25/19 08:26 Lorazepam (Ativan 2mg/ml 1ml) 0.5 mg Q6H PRN IV For Anxiety 09/22/19 12:45 09/29/19 12:44 09/24/19 20:31 Nitroglycerin (Ntg) 0.4 mg Q5M PRN SL Prn Chest Pain 09/14/19 23:00 10/14/19 22:59 09/15/19 11:03 Ondansetron HCl (Zofran) 4 mg Q6H PRN ORAL Nausea & Vomiting 09/14/19 23:00 10/14/19 22:59 09/19/19 18:02 Pantoprazole (Protonix) 40 mg DAILY ORAL 09/15/19 09:00 10/15/19 08:59 09/25/19 08:25 Polyethylene Glycol (Miralax) 17 gm DAILYPRN PRN ORAL Constipation 09/14/19 23:00 10/14/19 22:59 Prochlorperazine (Compazine) 10 mg Q6H PRN IVP Nausea & Vomiting 09/14/19 23:00 10/14/19 22:59 Triamcinolone (Kenalog) 1 applic TID TOPIC 09/15/19 09:00 10/15/19 08:59 09/25/19 12:43 Vancomycin HCl (Vanco rx to dose) 1 ea DAILY PRN MISC Per rx protocol 09/18/19 19:15 10/18/19 19:14 Vitamin B Complex/ Vit C/Folic Acid (Nephrovite) 1 tab DAILY ORAL 09/15/19 09:00 10/15/19 08:59 09/25/19 08:27 Allergies: Coded Allergies: No Known Allergies (Unverified , 07/06/19) ROS Limited/Unobtainable: No Constitutional: Reports: no symptoms HEENT: Reports: no symptoms Cardiovascular: Reports: no symptoms Respiratory: Reports: no symptoms Gastrointestinal/Abdominal: Reports: no symptoms Genitourinary: Reports: no symptoms Neurologic/Psychiatric: Reports: no symptoms Subjective 63 YO M admitted with chest pain. Now MRSA sepsis. S/P removal of hemodialysis cath 09/22/19. Cover for Int Med-dr Roblero Objective Last Vital Signs Date Time Temp Pulse Resp B/P (MAP) Pulse Ox O2 Delivery O2 Flow Rate FiO2 09/25/19 15:58 98.4 76 20 146/72 (96) 95 09/25/19 09:00 Nasal Cannula 2.0 09/24/19 20:18 28 Laboratory Tests Test 09/25/19 07:25 White Blood Count 14.9 K/UL (4.8-10.8) H Red Blood Count 3.34 M/UL (4.70-6.10) L Hemoglobin 9.4 G/DL (14.2-18.0) L Hematocrit 30.6 % (42.0-52.0) L Mean Corpuscular Volume 92 FL (80-99) Mean Corpuscular Hemoglobin 28.1 PG (27.0-31.0) Mean Corpuscular Hemoglobin Concent 30.7 G/DL (32.0-36.0) L Red Cell Distribution Width 16.4 % (11.6-14.8) H Platelet Count 110 K/UL (150-450) L Mean Platelet Volume 4.9 FL (6.5-10.1) L Neutrophils (%) (Auto) % (45.0-75.0) Lymphocytes (%) (Auto) % (20.0-45.0) Monocytes (%) (Auto) % (1.0-10.0) Eosinophils (%) (Auto) % (0.0-3.0) Basophils (%) (Auto) % (0.0-2.0) Differential Total Cells Counted 100 Neutrophils % (Manual) 82 % (45-75) H Lymphocytes % (Manual) 8 % (20-45) L Monocytes % (Manual) 10 % (1-10) Eosinophils % (Manual) 0 % (0-3) Basophils % (Manual) 0 % (0-2) Band Neutrophils 0 % (0-8) Platelet Estimate Decreased L Platelet Morphology Normal Hypochromasia 1+ Anisocytosis 1+ Sodium Level 136 MMOL/L (136-145) Potassium Level 4.8 MMOL/L (3.5-5.1) Chloride Level 99 MMOL/L (98-107) Carbon Dioxide Level 27 MMOL/L (21-32) Anion Gap 10 mmol/L (5-15) Blood Urea Nitrogen 97 mg/dL (7-18) H Creatinine 7.9 MG/DL (0.55-1.30) H Estimat Glomerular Filtration Rate 7.0 mL/min (>60) Glucose Level 93 MG/DL (74-106) Calcium Level 9.9 MG/DL (8.5-10.1) Phosphorus Level 6.2 MG/DL (2.5-4.9) H Magnesium Level 2.1 MG/DL (1.8-2.4) Total Bilirubin 1.4 MG/DL (0.2-1.0) H Direct Bilirubin 1.0 MG/DL (0.0-0.3) H Aspartate Amino Transf (AST/SGOT) 47 U/L (15-37) H Alanine Aminotransferase (ALT/SGPT) 89 U/L (12-78) H Alkaline Phosphatase 533 U/L (46-116) H Pro-B-Type Natriuretic Peptide > 21814 pg/mL (0-125) H Total Protein 7.4 G/DL (6.4-8.2) Albumin 2.1 G/DL (3.4-5.0) L Globulin 5.3 g/dL Albumin/Globulin Ratio 0.4 (1.0-2.7) L Random Vancomycin Level 23.2 ug/mL Microbiology Date/Time Source Procedure Growth Status 09/24/19 14:39 Blood Blood Culture - Preliminary Resulted 09/24/19 14:30 Blood Blood Culture - Preliminary Resulted 09/23/19 14:50 Blood Blood Culture - Preliminary Staphylococcus Aureus Resulted 09/23/19 14:40 Blood Blood Culture - Preliminary Staphylococcus Aureus Resulted Intake and Output 09/24/19 09/25/19 19:00 07:00 Intake Total 120 ml Balance 120 ml Intake Oral 120 ml Objective Objective GENERAL: The patient is awake and responsive, in no acute distress. HEAD AND NECK: Pupils are equally reactive to light. Extraocular movements intact. Neck was supple. Positive JVD. LUNGS: Good air entry. No wheezing or rhonchi. Decreased air in the bases. HEART: S1, S2. Distant heart sounds. No murmur or gallop. Chest wall has a PermCath. No sign of infection. ABDOMEN: Soft, nondistended, and nontender. Positive bowel sounds. EXTREMITIES: +3 edema in bilateral lower extremity. No cyanosis or clubbing. PELVIC: Scrotum has edema and penile edema was noted. NEUROLOGIC: Cranial nerves II through XII grossly, unsteady gait. Assessment/Plan Assessment/Plan Assessment/Plan Assessment/Plan ASSESSMENT: 1. Chest pain with mild elevated Troponin, possible acute coronary syndrome. 2. Congestive heart failure with reduced ejection fraction. 3. End-stage renal disease, on hemodialysis, Tuesday, Tuesday, and Tuesday. 4. Diabetes type 2 with diabetic gastroparesis as well as diabetic neuropathy and diabetic nephropathy. 5. Gastroesophageal reflux disease. 6. Hypertension. 7. Mobitz type 1 first-degree AV block. 8. Anasarca. 9. Pedal edema. 10. Severe cardiomyopathy. LVEF=15-20%; repeat=45% 11. Systemic hypertension. 12. Dialysis noncompliance. 13. Mitral as well as tricuspid regurgitation. 14. Severe anemia 15. Sepsis=MRSA 16. Infected HD cath=MRSA PLAN: On telemetry. Dr. Garcia from Cardiology Electrophysiology consultation; Dr. Mercer, Pulmonary Critical Care; Dr. Justin Hutson from Nephrology. Hemodialysis 09/21/19 Code status at per POLST is DNR. DVT prophylaxis, heparin subcutaneous. Accu-Chek, sliding scale. S/P Transfusion 2 units PRBC on 09/20/19 S/P removal of hemodialysis cath 09/22/19-culture result=MRSA Hemodialysis on hold pending placement of new hemodialysis cath Kuldip Crisostomo MD Sep 25, 2019 18:07
--- NOTE | 2019-09-25 18:15 | NUR ---
PRONOUNCEMENT: No Code. Called to pronounce patient. Absence of spontaneous respirations, no cardiac or breath sounds on auscultation. Pupils fixed and dilated. No carotid pulse or chest movement. Patient at 1740. DR. Roblero notified per Saskia HARDY. Family was notified at [facility] at 1810. phone number [phone].
--- NOTE | 2019-09-25 18:17 | NUR ---
NURSE NOTES: No Code. Patient had a flat line on manager business intelligence, went toCalled to pronounce patient. Absence of spontaneous respirations, no cardiac or breath sounds on auscultation. Pupils fixed and dilated. No carotid pulse or chest movement. Patient at 1740. DR. Roblero notified per Saskia HARDY. Family was notified at [facility] at 1810. phone number [phone]. Addendum: 09/25/19 at 1858 by ANYA VALLES RN No code. Patient had a flat line on manager business intelligence, checked patient's vital sign, bp 70/42, no pulse, notified charge nurse, nursing transmission maintenance supervisor and patient was pronounced . Dr Roblero was notified, Dr. Crisostomo was notified and the Jessica was also notified. Post mortem care done. One legacy called and the one legacy/DNN Number is [id number]. Addendum: 09/26/19 at 0651 by ANYA VALLES RN Patient had a flat line on manager business intelligence, unable to obtain blood pressure, no pulse, notified charge nurse, nursing transmission maintenance supervisor and patient was pronounced . Dr Roblero was notified, Dr. Crisostomo was notified and the Jessica was also notified. Patient is DNR/DNI. Post mortem care done. One legacy called and the one legacy/DNN Number is [id number].
--- NOTE | 2019-09-26 08:05 | Discharge Summary ---
Discharge Summary Discharge Summary _ SUMMARY DATE OF ADMISSION: 09/14/2019 DATE OF EXPIRATION: 09/25/2019 REASON FOR ADMISSION: 63 years old male with past medical history of severe cardiomyopathy, congestive heart failure, hypertension, end-stage renal disease, on hemodialysis , diabetes mellitus, noncompliance with treatment, with DNR/DNI status, presented from the care home facility complaining of intermittent chest pain for 1 day. Patient received nitroglycerin by EMS and stated that chest pain was resolved. Patient apparently had a chest pain while having dialysis , and dialysis subsequently was stopped. Patient denied shortness of breath. He denied fever or chills. He denied cough. Upon evaluation vital signs were stable. Pulse oximetry was 94% on 3 L of oxygen via nasal cannula. Laboratory work-up revealed mild leukocytosis with WBC 12.1, hemoglobin 9.5 , hematocrit 30.1, platelet count 99. Sodium 137 ,potassium 3.9. BUN 42, creatinine 4.4. Glucose 151. AST 70 , ALT 85 . Troponin 0.132 , pro BNP > 35,000 . EKG revealed sinus rhythm, no acute ischemic changes. Chest x-ray demonstrated right [id number] and left small pleural effusion with possible atelectasis or consolidation. Unchanged cardiomegaly. Unchanged low lung volumes. Unchanged right internal jugular Perma-catheter . Patient subsequently admitted to telemetry floor for further management. CONSULTANTS: automobile upholsterer apprentice Dr. Eagle pulmonary/critical care Dr. Mercer ID specialist Dr. Granado GI specialist Dr. Nick software test developer Dr. Justin Hutson [facility] Dr. Hurtado [facility] COURSE: Patient admitted to telemetry floor. Cigarette Paper Tester closely followed. Serial troponin were elevated , however levels were flat and were likely elevated due to renal failure , as per automobile upholsterer apprentice. Antiplatelet therapy with aspirin, beta-eduarda and statin continued. Patient had a prior history of severe cardiomyopathy with ejection fraction of 15 to 20%. Repeated echocardiogram on this admission revealed ejection fraction of 55%. Evidence of increased intracardiac filling pressures. Mobile intra-atrial septum with lipomatous hypertrophy. Mild left ventricular hypertrophy. No evidence of pericardial effusion. Moderate left ventricular diastolic dysfunction grade 2. Mild mitral regurgitation and moderate tricuspid regurgitation. Right ventricular systolic pressure of 53 consistent with moderate pulmonary hypertension. Patient noted to be bradycardic . Coreg dose was decreased , and bradycardia improved. Hemodialysis provided as per software test developer recommendation with close monitoring of renal parameters , volumes and electrolytes. ID specialist followed. Blood culture initially were negative , but patient spiked fever on 09/18 and leukocytosis started to trend up. Patient subsequently recultured. Blood culture revealed MRSA on 09/18 , repeated blood culture on 09/19 and also showed MRSA. Patient subsequently undergone removal of hemodialysis catheter on 09/22 by general surgeon . Culture of catheter tip also showed MRSA. Repeated blood culture on 09/23 and 09/24 still revealed MRSA. Antibiotics provided as per ID recommendation. Patient had persistent leukocytosis, fever resolved. Patent Counsel was waiting 48 to 72 hours of negative blood culture prior to insertion of permanent dialysis catheter. Hemodialysis was on hold due to lack of hemodialysis catheter. JAMES to evaluate for endocarditis was planned for 09/27/19. Supplemental oxygen provided and titrated to keep pulse oximetry above 92%. Bronchodilator therapy provided as needed. Patient was followed-up with chest x-ray. DVT and GI prophayxlis provided. Abdominal ultrasound revealed findings suspicious for portal hypertension with ascites, splenomegaly and abnormal Doppler evaluation of the main portal vein. Thickened gallbladder wall, nonspecific. Mild ascites. Splenomegaly. Right pleural effusion . Suspected medical renal disease. LFT initially trended up and then started to trend down, but still remained elevated. Hepatitis panel was negative. HIV test was nonreactive. Blood sugar was managed with sliding scale of insulin. Hemoglobin and hematocrit were closely monitored with goal to keep hemoglobin above 7. Hemoglobin and hematocrit remained at the baseline. Anemia work-up on previous admission was consistent with anemia of chronic kidney disease . Patient was on Epogen. Patient received 2 units of packed red blood cells on . Supportive care provided. Pain management was addressed as needed. Bowel regimen instituted. Patient had dry necrotic tip of his right index finger, present on admission, apparently for a long time. Right upper extremity arterial ultrasound revealed moderate calcification in radial and ulnar arteries. No evidence of stenosis or occlusion within this segment. Wound care provided as per surgeon recommendation. Patient with DNR/DNI status. Patient condition was deteriorated and on 09/25 at 1740 patient was pronounced. Cause of : cardiopulmonary arrest FINAL DIAGNOSES: Sepsis with MRSA bacteremia Persistent MRSA bacteremia from hemodialysis catheter, rule out endocarditis Persistent leukocytosis Pulmonary edema CHF Cardiomyopathy Right pleural effusion End-stage renal disease ,on hemodialysis Troponin elevation likely due to renal failure Noncompliance with renal dialysis Moderate pulmonary hypertension Mitral and tricuspid regurgitation Severe anemia of chronic kidney disease Anasarca GERD Mobitz type I first-degree AV block Chest pain with mildly elevated troponin , probably due to renal failure Diabetes mellitus with diabetic nephropathy Neuropathy and gastroparesis Hypertension Diabetes mellitus Portal hypertension Elevated LFT Montserrat Martin GOLF CART ASSEMBLER Sep 26, 2019 08:05
--- NOTE | 2019-09-26 10:22 | Diagnostic Imaging Report ---
APPROVED REPORT CPT Code: 44447 Symptoms Right Other : Necrotic index finger. Risk Factors Diabetes : Comments Hemodialysis pt. Portacath noted at RT SCV. RIGHT UPPER EXTREMITY: Portacath at right SCV. Imaging of the subclavian, axillary, brachial, radial and ulnar arteries is within normal limits. The Doppler waveforms of the axillary to brachial arteries are monophasic due to the former upper arm shunt. The remaining segments are multiphasic. Moderate calcification noted throughout the radial and ulnar arteries. There is no evidence of stenosis or occlusion within these segments.
== END 2019-09-25 17:40 | disposition expired | DRG 311 ==
LOC: EDBD 19:16 → EMR 20:13 → 2E 20:16 → EDBEDREQ 20:46
PROC: 5A1D70Z Performance of Urinary Filtration, Intermittent, Less than 6 Hours Per Day (ICD-10-PCS; 2019-09-14)
PROC: 30233N1 Transfusion of Nonautologous Red Blood Cells into Peripheral Vein, Percutaneous Approach (ICD-10-PCS; principal; 2019-09-20)
PROC: 05PY33Z Removal of Infusion Device from Upper Vein, Percutaneous Approach (ICD-10-PCS; 2019-09-22)
DX: I24.9 Acute ischemic heart disease, unspecified (principal); T80.211A Bloodstream infection due to central venous catheter, initial encounter; N18.6 End stage renal disease; A41.02 Sepsis due to Methicillin resistant Staphylococcus aureus; I42.9 Cardiomyopathy, unspecified; I13.2 Hypertensive heart and chronic kidney disease with heart failure and with stage 5 chronic kidney disease, or end stage renal disease; R07.9 Chest pain, unspecified; I36.1 Nonrheumatic tricuspid (valve) insufficiency; I34.0 Nonrheumatic mitral (valve) insufficiency; E11.22 Type 2 diabetes mellitus with diabetic chronic kidney disease; Z99.2 Dependence on renal dialysis; K21.9 Gastro-esophageal reflux disease without esophagitis; E11.40 Type 2 diabetes mellitus with diabetic neuropathy, unspecified; Z79.82 Long term (current) use of aspirin; Z79.4 Long term (current) use of insulin; I50.9 Heart failure, unspecified; E11.43 Type 2 diabetes mellitus with diabetic autonomic (poly)neuropathy; K31.84 Gastroparesis; Z91.15 Patient's noncompliance with renal dialysis; I44.0 Atrioventricular block, first degree; I27.20 Pulmonary hypertension, unspecified; D63.1 Anemia in chronic kidney disease; R60.1 Generalized edema; Z66 Do not resuscitate
CPT/HCPCS: 36415; 71045; 76700; 80048; 80053; 80202; 82150; 82248; 82962; 83605; 83690; 83735; 83880; 84100; 84484; 85007; 85025; 85610; 86703; 86705; 86706; 86709; 86803; 86850; 86900; 86901; 86920; 87040; 87070; 87081; 87181; 87340; 93005; 93306; 93926; 94664; 99285; J1815